=== PATIENT | female | born 1935 | race Caucasian/White ===

== ENCOUNTER 2017-03-01 11:04 | Inpatient (IN) | payer OTHER, BC ==
[2017-03-01 11:23] VITALS: BMI 26.6
--- NOTE | 2017-03-01 11:39 | PDOC ---
History of Present Illness - General History Source: Patient, Family Exam Limitations: No Limitations - History of Present Illness Initial Comments: 03/01/17 12:24 The patient is a 81 year old female with a significant past medical history of A -Fib, diabetes, renal failure on dialysis (T,R,Sat), hypertension, hypercholesterolemia, and peripheral neuropathy, sent by doctor to the Emergency Department with right foot wound and possible cellulitis. The patient states that she was at dialysis today when her doctor suggested she come to the ED for possible cellulitis workup. The patient states that her daughter noticed a callous on her right heel on Sunday, but denies any pain with the heel wound. She denies pain to the feet or legs bilaterally, but admits to peripheral neuropathy bilaterally. Patient has no complaints. The patient denies fever, chills, and cough. Patient denies chest pain, palpitations, and shortness of breath. Patient denies nausea, vomiting, and diarrhea. Patient denies dizziness, headache, and visual changes. Patient denies dysuria, hematuria, and urinary frequency. Allergies: aspirin, penicillins, verapamil, erythromycin base Surgical Hx: cardiac stent <Lety Pabon - Last Filed: 03/01/17 13:26> <Benedicto Fuchs - Last Filed: 03/01/17 13:52> - General Chief Complaint: Wound Stated Complaint: RT FOOT PAIN (PCP SENT) Past History <Lety Pabon - Last Filed: 03/01/17 13:26> - Past Medical History Cardiac Disorders: Yes (-2000) Diabetes: Yes Dialysis: Yes () HTN: Yes Hypercholesterolemia: Yes Thyroid Disease: Yes - Psycho/Social/Smoking Cessation Hx Suicidal Ideation: No Smoking Status: No Smoking History: Former smoker Have you smoked in the past 12 months: No Number of Cigarettes Smoked Daily: 0 Information on smoking cessation initiated: No <Benedicto Fuchs - Last Filed: 03/01/17 13:52> - Past Medical History Allergies/Adverse Reactions: Allergies Allergy/AdvReac Type Severity Reaction Status Date / Time aspirin Allergy Verified 03/01/17 11:18 erythromycin base Allergy Verified 03/01/17 11:19 Penicillins Allergy Verified 03/01/17 11:18 verapamil [Verapamil] Allergy Verified 03/01/17 11:18 Home Medications: Ambulatory Orders Ascorbic Acid [Vitamin C] 1 tab PO DAILY 01/24/13 Cholecalciferol (Vitamin D3) [Vitamin D] 1,000 unit PO DAILY 01/24/13 Furosemide [Lasix -] 80 mg PO DAILY 01/24/13 Insulin Aspart Prot/Insuln Asp [Novolog Mix 70-30 Vial] 8 unit SQ AM 01/24/13 Insulin Aspart Prot/Insuln Asp [Novolog Mix 70-30 Vial] 10 unit SQ HS 01/24/13 Labetalol HCl [Normodyne -] 300 mg PO BID 01/24/13 Metolazone 5 mg PO DAILY 01/24/13 [place]-3 Acid Ethyl Esters [Lovaza -] 1,400 mg PO BID 01/24/13 Sevelamer Carbonate [Renvela -] 800 mg PO TID 01/24/13 Vitamin A 1 tab PO DAILY 01/24/13 Vitamin E 1 tab PO DAILY 01/24/13 Folic Acid - 1 mg PO DAILY #0 tablet 01/27/13 Magnesium Oxide [Mag-Ox -] 400 mg PO DAILY #0 tablet 01/27/13 Review of Systems - Review of Systems Able to Perform ROS?: Yes Comments:: 03/01/17 12:25 GENERAL/CONSTITUTIONAL: No fever or chills. No weakness. HEAD, EYES, EARS, NOSE AND THROAT: No change in vision. No ear pain or discharge. No sore throat. CARDIOVASCULAR: No chest pain or shortness of breath. RESPIRATORY: No cough, wheezing, or hemoptysis. GASTROINTESTINAL: No nausea, vomiting, diarrhea or constipation. GENITOURINARY: No dysuria, frequency, or change in urination. MUSCULOSKELETAL: No joint or muscle swelling or pain. No neck or back pain. SKIN: No rash EXTREMITIES: + right heel callous NEUROLOGIC: No headache, vertigo, loss of consciousness, or change in strength/ sensation. ENDOCRINE: No increased thirst. No abnormal weight change. HEMATOLOGIC/LYMPHATIC: No anemia, easy bleeding, or history of blood clots. ALLERGIC/IMMUNOLOGIC: No hives or skin allergy. <Lety Pabon - Last Filed: 03/01/17 13:26> *Physical Exam - Vital Signs Last Vital Signs Temp Pulse Resp BP Pulse Ox 97.9 F 64 19 164/70 96 03/01/17 11:19 03/01/17 11:19 03/01/17 11:19 03/01/17 11:19 03/01/17 11:19 - Physical Exam Comments: 03/01/17 12:25 GENERAL: Alert, awake and oriented x3, in no acute distress, obese HEAD: No signs of trauma EYES: PERRLA, EOMI, sclera anicteric, conjunctiva clear ENT: Auricles normal inspection, hearing grossly normal, nares patent, oropharynx clear without exudates. Moist mucosa NECK: Normal ROM, supple, no lymphadenopathy, JVD, or masses LUNGS: Breath sounds equal, clear to auscultation bilaterally. No wheezes, and no crackles HEART: Systolic ejection murmur, regular rate and rhythm, normal S1 and S2, no murmurs, rubs or gallops ABDOMEN: Soft, nontender, hyperactive bowel sounds. No guarding, no rebound. No masses EXTREMITIES: Peripheral pulses 1+ bilaterally to lower extremities. Pitting edema 3+ bilaterally to lower extremities to just below knee. Brown to green closed callous on posterior aspect of right ankle, 3cm in diameter oval. Flucatuant underneath, with necrotic core 1cm in diameter. Right lower extremity is warm to touch and erythematous from ankle to thigh, with ecchymosis and bruising. Normal range of motion. No clubbing or cyanosis. No cords NEUROLOGICAL: Cranial nerves II through XII grossly intact. Normal speech, normal gait SKIN: Warm, Dry, normal turgor, no rashes or lesions noted. Lower extremities noted above. <Lety Pabon - Last Filed: 03/01/17 13:26> - Vital Signs Last Vital Signs Temp Pulse Resp BP Pulse Ox 97.9 F 64 19 164/70 96 03/01/17 11:19 03/01/17 11:19 03/01/17 11:19 03/01/17 11:19 03/01/17 11:19 <Benedicto Fuchs - Last Filed: 03/01/17 13:52> Heart Score/ECG Review #1 ECG reviewed & interpreted by me at: 13:25 (EKG reviewed by Dr. Fuchs IMPRESSION: Normal rhythm with 1st degree AV block. Vent rate 63bpm.) <Lety Pabon - Last Filed: 03/01/17 13:26> ED Treatment Course - LABORATORY CBC & Chemistry Diagram: 03/01/17 12:30 03/01/17 12:30 <Lety Pabon - Last Filed: 03/01/17 13:26> - LABORATORY CBC & Chemistry Diagram: 03/01/17 12:30 03/01/17 12:30 <Benedicto Fuchs - Last Filed: 03/01/17 13:52> Medical Decision Making - Medical Decision Making 03/01/17 12:25 Note from Celeste Wisdom: Sent to ED for evaluation of foot ulcer, cellulitis, DVT r/o vascular insuf Patient needs vascular eval 03/01/17 12:36 Dr. Hugo Sinclair was called at his office at 12:36. Awaiting call back. 03/01/17 13:26 Dr. Hugo Sinclair was paged overhead and came down to the ER to see the patient. Dr. Sinclair examined the patient and spoke to Dr. Fuchs about the patient's care. <Lety Pabon - Last Filed: 03/01/17 13:26> *DC/Admit/Observation/Transfer - Attestations Scribe Attestion: 03/01/17 12:26 Documentation prepared by Lety Pabon, acting as medical billing coordinator for Benedicto Fuchs DO. <Lety Pabon - Last Filed: 03/01/17 13:26> - Discharge Dispostion Admit: Yes - Attestations Physician Attestion: 03/01/17 11:38 I, Dr. Benedicto Fuchs, attest that this document has been prepared under my direction and personally reviewed by me in its entirety. I further attest, that it accurately reflects all work, treatment, procedures and medical decision -making performed by me. <Benedicto Fuchs - Last Filed: 03/01/17 13:52> Diagnosis at time of Disposition: Cellulitis and abscess of right lower extremity - Discharge Dispostion Condition at time of disposition: Improved
[2017-03-01 13:18] LABS: BASOPHIL 1.1 % (0-2.0); EOSINOPHIL 2.2 % (0-4.5); MCH 33.7 pg (25.7-33.7); MEAN CELL VOLUME 101.8 fl (80-96); MEAN PLT VOLUME 8.3 fl (7.5-11.1); NEUTROPHILS 72.5 % (42.8-82.8); PLATELET COUNT 129 K/MM3 (134-434); RDW 16.8 % (11.6-15.6); VENOUS BLOOD GAS HCO3 25.3 meq/L (19-25); VENOUS PH 7.36 (7.32-7.42); WHITE BLOOD COUNT 3.7 K/mm3 (4.0-10.0)
--- NOTE | 2017-03-01 13:26 | CONSULT ---
Consult - Smoking History Smoking history: Former smoker Have you smoked in the past 12 months: No Aproximately how many cigarettes per day: 0 Home Medications - Allergies Allergies/Adverse Reactions: Allergies Allergy/AdvReac Type Severity Reaction Status Date / Time aspirin Allergy Verified 03/01/17 11:18 erythromycin base Allergy Verified 03/01/17 11:19 Penicillins Allergy Verified 03/01/17 11:18 verapamil [Verapamil] Allergy Verified 03/01/17 11:18 - Home Medications Home Medications: Ambulatory Orders Ascorbic Acid [Vitamin C] 1 tab PO DAILY 01/24/13 Cholecalciferol (Vitamin D3) [Vitamin D] 1,000 unit PO DAILY 01/24/13 Furosemide [Lasix -] 80 mg PO DAILY 01/24/13 Insulin Aspart Prot/Insuln Asp [Novolog Mix 70-30 Vial] 8 unit SQ AM 01/24/13 Insulin Aspart Prot/Insuln Asp [Novolog Mix 70-30 Vial] 10 unit SQ HS 01/24/13 Labetalol HCl [Normodyne -] 300 mg PO BID 01/24/13 Metolazone 5 mg PO DAILY 01/24/13 [place]-3 Acid Ethyl Esters [Lovaza -] 1,400 mg PO BID 01/24/13 Sevelamer Carbonate [Renvela -] 800 mg PO TID 01/24/13 Vitamin A 1 tab PO DAILY 01/24/13 Vitamin E 1 tab PO DAILY 01/24/13 Folic Acid - 1 mg PO DAILY #0 tablet 01/27/13 Magnesium Oxide [Mag-Ox -] 400 mg PO DAILY #0 tablet 01/27/13 Physical Exam Vital Signs: Vital Signs Temperature 97.9 F 03/01/17 11:19 Pulse Rate 64 03/01/17 11:19 Respiratory Rate 19 03/01/17 11:19 Blood Pressure 164/70 03/01/17 11:19 O2 Sat by Pulse Oximetry (%) 96 03/01/17 11:19 Assessment/Plan Vascular Surgery The patient is a 81 year old female with a significant past medical history of A -Fib, diabetes, renal failure on dialysis (T,R,Sat), hypertension, hypercholesterolemia, and peripheral neuropathy, sent by doctor to the Emergency Department with right foot wound and possible cellulitis. The patient states that she was at dialysis today when her doctor suggested she come to the ED for possible cellulitis workup. The patient states that her daughter noticed a callous on her right heel on Sunday, but denies any pain with the heel wound. She denies pain to the feet or legs bilaterally, but admits to peripheral neuropathy bilaterally. Patient has no complaints. The patient denies fever, chills, and cough. Patient denies chest pain, palpitations, and shortness of breath. Patient denies nausea, vomiting, and diarrhea. Patient denies dizziness, headache, and visual changes. Patient denies dysuria, hematuria, and urinary frequency. Allergies: aspirin, penicillins, verapamil, erythromycin base Surgical Hx: cardiac stent <Lety Pabon - Last Filed: 03/01/17 12:39> - General Chief Complaint: Wound Stated Complaint: RT FOOT PAIN (PCP SENT) Past History - Past Medical History Cardiac Disorders: Yes (-2000) Diabetes: Yes Dialysis: Yes () HTN: Yes Hypercholesterolemia: Yes Thyroid Disease: Yes - Psycho/Social/Smoking Cessation Hx Suicidal Ideation: No Smoking Status: No Smoking History: Former smoker Have you smoked in the past 12 months: No Number of Cigarettes Smoked Daily: 0 Information on smoking cessation initiated: N PE head - NC/AT Lung - CTA Heart - RRR abd - soft,nt,nd ext - Bilateral lower ext erythema. Right heel eschar / ulcer. A/P Bilateral lower ext cellulitis. Will need IV antibiotics. Bilateral lower ext swelling -- can do compression with krysta bandages. Family requesting podiatry for foot care. No need to open right heel eschar -- on palpation there is no discharge. No signs of abscess. Heel pads to area so that the area does not breakdown. bacitracin to area daily. Hugo Sinclair DO Hugo Sinclair DO
[2017-03-01] MEDS ORDERED: LEVOFLOXACIN 750 MG IVPB 150 ML IVPB ONE ×2 (13:27→14:06)
[2017-03-01 13:30] LABS: INR 1.1 (0.82-1.09); PROTHROMBIN TIME (PATIENT) 12.1 SEC (9.98-11.88)
[2017-03-01 13:33] LABS: ACTIVATED PTT 32.5 SECONDS (26.9-34.4)
[2017-03-01 13:41] LABS: ALBUMIN 3.3 g/dl (3.4-5.0); ANION GAP 11 (8-16); BILIRUBIN,TOTAL 0.8 mg/dL (0.2-1.0); CO2 25 mmol/L (21-32); CREATININE 3.5 mg/dL (0.55-1.02); GLUCOSE,RANDOM 91 mg/dL (74-106); SGPT/ALT 14 U/L (12-78); TOT PROT 7.6 g/dl (6.4-8.2)
[2017-03-01 13:42] LABS: PH,URINE 6.5 (5.0-8.0); URINE APPEARANCE CLEAR; URINE BILIRUBIN NEGATIVE (NEGATIVE); URINE COLOR LT. YELLOW; URINE GLUCOSE (UA) NEGATIVE (NEGATIVE); URINE KETONE NEGATIVE (NEGATIVE); URINE NITRITE NEGATIVE (NEGATIVE); URINE UROBILINOGEN 0.2 E.U/dl E.U./dl (0.2-1.0)
[2017-03-01 13:43] LABS: ALK PHOS 232 U/L (45-117); SGOT/AST 43 U/L (15-37); TROPONIN I 0.03 ng/ml (0.00-0.05)
[2017-03-01 13:56] LABS: URINE BLOOD 3+ (NEGATIVE); URINE LEUK ESTERASE 3+ (NEGATIVE); URINE PROTEIN 3+ (NEGATIVE)
[2017-03-01 14:30] LABS: URINE BACTERIA FEW /hpf (NONE SEEN); URINE RBC 9 /hpf (0-3); URINE WBC 2118 /hpf (3-5)
--- NOTE | 2017-03-01 15:49 | EKG ---
Test Reason : Blood Pressure : / mmHG Vent. Rate : 063 BPM Atrial Rate : 063 BPM P-R Int : 220 ms QRS Dur : 100 ms QT Int : 430 ms P-R-T Axes : 050 066 172 degrees QTc Int : 440 ms SINUS RHYTHM WITH 1ST DEGREE A-V BLOCK WITH PREMATURE ATRIAL COMPLEXES ABNORMAL ECG WHEN COMPARED WITH ECG OF 26-JAN-2013 10:45, PREMATURE ATRIAL COMPLEXES ARE NOW PRESENT T WAVE INVERSION NOW EVIDENT IN INFERIOR LEADS T WAVE INVERSION NOW EVIDENT IN ANTEROLATERAL LEADS QT HAS SHORTENED Confirmed by JAMISON ARNDT, MARSHALL ([id number]) on 03/01/2017 3:48:49 PM Referred By: Confirmed By:MARHSALL SWIFT MD
--- NOTE | 2017-03-01 16:33 | PN ---
Progress Note (short form) - Note Progress Note: ID Bilateral LE cellulitis ESRD PCN allergy Await c/s [facility] vanco/ levaquin
[2017-03-01] MEDS ORDERED: VANCOMYCIN 1 GRAM (PRE-DOCKED) 250 ML IVPB ONE (17:00)
[2017-03-01] MEDS: INSULIN SLIDING SCALE (NOVOLOG) 1 VIAL SQ SCH (17:16)
[2017-03-01] MEDS: SEVELAMER CARBONATE 800 MG TAB (FP) PO SCH (18:23)
--- NOTE | 2017-03-01 20:02 | CONS ---
DATE OF CONSULTATION: DATE OF DICTATION: 03/01/2017 INFECTIOUS DISEASE CONSULTATION HISTORY OF PRESENT ILLNESS: The patient is a 81-year-old female, history of end-stage renal disease on hemodialysis, evaluated for bilateral lower extremity cellulitis. The patient had developed a callus on the right heel which her daughter had noticed. She subsequently developed increasing erythema, warmth, and swelling of the lower extremities bilaterally. She had her usual dialysis session earlier today, was noted to have bilateral lower extremity cellulitis and was referred to the emergency room for admission. She denies any traumatic injury to her lower extremities. No insect or animal bites or scratches. She has no complaints of pain. She denies any fever or chills. Patient denies prior history of serious soft tissue infection requiring hospitalization. No history of MRSA. PAST MEDICAL HISTORY: Positive for end-stage renal disease on hemodialysis. She has been on dialysis since 2010. History of atrial fibrillation, diabetes mellitus, hypertension, hyperlipidemia, peripheral neuropathy. PAST SURGICAL HISTORY: Status post coronary artery stent. She is also status post fracture of the right ankle in 2007, she has hardware present. ALLERGIES: ASPIRIN, PENICILLIN, VERAPAMIL, ERYTHROMYCIN. Patient reports rash with ERYTHROMYCIN and PENICILLIN. MEDICATION: Include vitamin C, Lasix, insulin, Normodyne, folic acid. SOCIAL HISTORY: Lives at home. She is a former smoker. SYSTEMS REVIEW: Neurologic: No loss of consciousness, seizure activity, or focal weakness. Cardiac: Negative chest pain or palpitations. Respiratory: Negative cough or sputum production. Gastrointestinal: Negative vomiting or diarrhea. Genitourinary: End-stage renal disease on dialysis. She does make urine. She denies any dysuria or hematuria. LABORATORY DATA: White count 3.7, 72 neutrophils, 12 lymphocytes, 12 monocytes, hematocrit 37.6, platelet count 129. BUN 19, creatinine 3.5. Urinalysis 2118 white cells. Chest x-ray negative. X-rays of the right foot negative. Doppler exam negative for DVT. Blood and urine cultures were pending. PHYSICAL EXAMINATION: General: She is awake and alert. She is not acutely toxic appearing. Vital signs: Temperature 97.9, blood pressure 164/70, pulse 64 regular, respirations 19 per minute. HEENT: Sclerae anicteric. Cardiovascular: Heart sounds S1, S2. Respiratory: Lungs clear. Abdomen: Obese. Soft. Nontender. There is an AV fistula present in the left upper extremity. Extremities: Examination of the lower extremities: 2+ lower extremity edema bilaterally. There is patchy erythema involving both lower extremities from the feet to the mid tibial area. There are excoriations present. There is also an ulceration on the pretibial aspect of the left lower extremity. Excoriations are noted. There is no crepitus or fluctuance. No lymphangitic streaking. Right heel with dry eschar. No fluctuance or crepitance or expressible pus. IMPRESSION: 1. Bilateral lower extremity cellulitis. 2. Possible sepsis secondary to skin infection. 3. End-stage renal disease on hemodialysis. 4. PENICILLIN allergy. Await blood culture results. Empiric antibiotic coverage in this PENICILLIN allergic patient with vancomycin and Levaquin adjusted for renal failure. Will give 1 dose of vancomycin and check level in the morning. Continue Levaquin at renal-adjusted doses. Will follow. Thank you for the kind referral. XAVIER MEDINA M.D. [id number]
[2017-03-01] MEDS: OMEGA-3 ACID ETHYL ESTERS (FATTY-ACIDS) 1 GM CAPSULE (FP) PO SCH (21:13)
[2017-03-01] MEDS: LABETALOL HCL 100 MG TABLET (FP) PO SCH (21:13)
[2017-03-01] MEDS: INSULIN (NOVOLOG MIX 70/30) 100 UNITS/ML MDV SQ SCH (21:21)
[2017-03-02] MEDS: LEVOTHYROXINE NA 175 MCG TABLET PO SCH (06:24)
[2017-03-02] MEDS: INSULIN (NOVOLOG MIX 70/30) 100 UNITS/ML MDV SQ SCH ×3 (06:24→22:10)
[2017-03-02] MEDS: INSULIN SLIDING SCALE (NOVOLOG) 1 VIAL SQ SCH ×3 (06:24→17:23)
[2017-03-02 07:08] LABS: BASOPHIL 0.8 % (0-2.0); MCH 33.6 pg (25.7-33.7); MCHC 32.9 g/dl (32.0-36.0); MEAN CELL VOLUME 102.2 fl (80-96); MEAN PLT VOLUME 8.9 fl (7.5-11.1); NEUTROPHILS 63.5 % (42.8-82.8); PLATELET COUNT 105 K/MM3 (134-434); WHITE BLOOD COUNT 3.8 K/mm3 (4.0-10.0)
[2017-03-02 07:31] LABS: ALBUMIN 2.9 g/dl (3.4-5.0); ALK PHOS 200 U/L (45-117); ANION GAP 8 (8-16); BILIRUBIN,TOTAL 0.7 mg/dL (0.2-1.0); CALCIUM 7.9 mg/dL (8.5-10.1); CO2 28 mmol/L (21-32); CREATININE 4.8 mg/dL (0.55-1.02); GLUCOSE,RANDOM 82 mg/dL (74-106); SGOT/AST 20 U/L (15-37); SGPT/ALT 11 U/L (12-78); TOT PROT 6.6 g/dl (6.4-8.2)
[2017-03-02] MEDS: SEVELAMER CARBONATE 800 MG TAB (FP) PO SCH ×3 (08:00→17:23)
[2017-03-02] MEDS ORDERED: VANCOMYCIN 1 GRAM (PRE-DOCKED) 250 ML IVPB ONE ×2 (08:45→11:45)
[2017-03-02] MEDS ORDERED: PT OWN MED DRAWER 7, Y5N ONE (09:28)
[2017-03-02] MEDS: MAGNESIUM OXIDE 400 MG TABLET (FP) PO SCH (09:31)
[2017-03-02] MEDS: OMEGA-3 ACID ETHYL ESTERS (FATTY-ACIDS) 1 GM CAPSULE (FP) PO SCH ×2 (09:31→21:06)
[2017-03-02] MEDS: FUROSEMIDE 40 MG TABLET (FP) PO SCH (09:31)
[2017-03-02] MEDS: LABETALOL HCL 100 MG TABLET (FP) PO SCH ×2 (09:31→21:07)
--- NOTE | 2017-03-02 10:51 | HP ---
Admitting History and Physical - Primary Care Physician PCP: Brittni Bolaños - Admission History of Present Illness: Dictated. - Smoking History Smoking history: Former smoker Have you smoked in the past 12 months: No Aproximately how many cigarettes per day: 0 - Alcohol/Substance Use Hx Alcohol Use: No Home Medications - Allergies Allergies/Adverse Reactions: Allergies Allergy/AdvReac Type Severity Reaction Status Date / Time aspirin Allergy Verified 03/01/17 11:18 erythromycin base Allergy Verified 03/01/17 11:19 Penicillins Allergy Verified 03/01/17 11:18 verapamil [Verapamil] Allergy Verified 03/01/17 11:18 - Home Medications Home Medications: Ambulatory Orders Ascorbic Acid [Vitamin C] 1 tab PO DAILY 01/24/13 Cholecalciferol (Vitamin D3) [Vitamin D] 1,000 unit PO DAILY 01/24/13 Furosemide [Lasix -] 80 mg PO DAILY 01/24/13 Insulin Aspart Prot/Insuln Asp [Novolog Mix 70-30 Vial] 8 unit SQ AM 01/24/13 Insulin Aspart Prot/Insuln Asp [Novolog Mix 70-30 Vial] 10 unit SQ HS 01/24/13 Labetalol HCl [Normodyne -] 300 mg PO BID 01/24/13 Metolazone 5 mg PO DAILY 01/24/13 [place]-3 Acid Ethyl Esters [Lovaza -] 1,400 mg PO BID 01/24/13 Sevelamer Carbonate [Renvela -] 800 mg PO TID 01/24/13 Vitamin A 1 tab PO DAILY 01/24/13 Vitamin E 1 tab PO DAILY 01/24/13 Folic Acid - 1 mg PO DAILY #0 tablet 01/27/13 Magnesium Oxide [Mag-Ox -] 400 mg PO DAILY #0 tablet 01/27/13 Physical Examination Vital Signs: Vital Signs Temperature 98.3 F 03/02/17 06:00 Pulse Rate 69 03/02/17 10:28 Respiratory Rate 16 03/02/17 06:00 Blood Pressure 146/69 03/02/17 06:00 O2 Sat by Pulse Oximetry (%) 97 03/02/17 10:28 Labs: CBC, BMP 03/02/17 05:40 03/02/17 05:40 Problem List - Problems (1) Cellulitis and abscess of right lower extremity Code(s): L03.115 - CELLULITIS OF RIGHT LOWER LIMB L02.415 - CUTANEOUS ABSCESS OF RIGHT LOWER LIMB (2) Cellulitis Code(s): L03.90 - CELLULITIS, UNSPECIFIED (3) ESRD (end stage renal disease) on dialysis Code(s): N18.6 - END STAGE RENAL DISEASE Z99.2 - DEPENDENCE ON RENAL DIALYSIS (4) CAD (coronary artery disease) Code(s): I25.10 - ATHSCL HEART DISEASE OF [place] CORONARY ARTERY W/O ANG PCTRS (5) Diabetes 1.5, managed as type 1 Code(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
--- NOTE | 2017-03-02 11:31 | HP ---
DATE OF ADMISSION: DATE OF DICTATION: 03/02/2017 HISTORY OF PRESENT ILLNESS: This patient is a 81-year-old with an extensive past medical history of end-stage renal disease, on dialysis Sunday, , Sunday, coronary artery disease, status post stenting at [facility] in 2014, history of paroxysmal atrial fibrillation, insulin-dependent diabetes mellitus, hypertension, hyperlipidemia, peripheral neuropathy, as well as a history of overweight, is admitted to the hospital when she was sent from dialysis secondary to having redness on the legs as well as right heel wound. Patient diagnosed with cellulitis and right heel eschar. Started on antibiotics and admitted to the floor. Patient seen and examined by me today. Chart reviewed. HOME MEDICATIONS: Reviewed as listed on the emergency room sheet. ALLERGIES: also noted. It should be noted that the patient is taking baby aspirin at home and she denies any allergies to aspirin. PERSONAL HISTORY: Patient does not smoke or drink. FAMILY HISTORY: Nothing contributory. REVIEW OF SYSTEMS: Patient denies any chest pain, shortness of breath, abdominal pain, headache, dizziness. PHYSICAL EXAMINATION: General: Patient is alert and awake, comfortable, lying on the bed. Vital Signs: Stable as documented. She is afebrile. Neck: Supple. HEENT: Pupils are reactive and equal to light and accommodation. Lungs: Clear to auscultation. Cardiac: Heart sounds are regular. Abdomen: Soft, nontender. Extremities: Exam significant for bilateral lower extremity edema as well as right heel eschar. Neurological: She is alert and awake. DIAGNOSTIC DATA: Blood work showed white count 3.8, hemoglobin of 11.4, hematocrit 34.7 with platelets of 105 14. Electrolytes showed sodium 133. Rest of electrolytes are essentially okay except BUN 28, creatinine 4.8, and the patient is a dialysis patient. Ultrasound of the lower extremities was negative for DVT. Foot x-ray also noted as well as chest x-ray. EKG showed normal sinus rhythm. ASSESSMENT AND PLAN: Patient is admitted to the floor with the diagnosis of cellulitis. Patient's past medical history as documented. Continue antibiotics. Continue other medications. Discussed with the patient. Patient takes baby aspirin at home. On further questioning, patient gives a history of GI bleed in 2014 after she had stent placed and was on Coumadin. Patient was taken off Coumadin after that and does not want to be back on. Discussed heparin subcutaneous for DVT prophylaxis and patient agrees with that. Will monitor CBC for any signs of GI bleeding. I would like to make addendum that patient also has a history of hypothyroidism and she is on Synthroid. Further recommendations will be guided by the clinical course. Thank you. HOANG WILLAMS M.D. [id number]
--- NOTE | 2017-03-02 11:38 | PN ---
Progress Note, Physician History of Present Illness: Awake, alert No c/o LE pain No fever/ chills No adverse rxn to antibiotics - Current Medication List Current Medications: Active Medications Aspirin (Asa -) 81 mg PO DAILY [facility] Furosemide (Lasix -) 80 mg PO DAILY [facility] Last Admin: 03/02/17 09:31 Dose: 80 mg Heparin Sodium (Porcine) (Heparin -) 5,000 unit SQ BID [facility] Levofloxacin (Levaquin 250 Mg Premixed Ivpb -) 50 mls @ 50 mls/hr IVPB Q2D@ 1000 [facility] Insulin Aspart (Novolog Mix 70/30 Vial) 10 units SQ HS [facility] Last Admin: 03/01/17 21:21 Dose: Not Given Insulin Aspart (Novolog Mix 70/30 Vial) 8 units SQ AM [facility] Last Admin: 03/02/17 06:24 Dose: Not Given Insulin Aspart (Novolog Vial Sliding Scale -) 1 vial SQ TIDAC [facility] PRN Reason: Protocol Last Admin: 03/02/17 11:33 Dose: Not Given Labetalol HCl (Normodyne -) 300 mg PO BID [facility] Last Admin: 03/02/17 09:31 Dose: 300 mg Levothyroxine Sodium (Synthroid -) 175 mcg PO DAILY@0700 [facility] Last Admin: 03/02/17 06:24 Dose: 175 mcg Magnesium Oxide (Mag-Ox -) 400 mg PO DAILY [facility] Last Admin: 03/02/17 09:31 Dose: 400 mg Tpsjj-9-Mqcg Ethyl Esters (Lovaza -) 2 gm PO BID [facility] Last Admin: 03/02/17 09:31 Dose: 2 gm Sevelamer Carbonate (Renvela -) 800 mg PO TIDCM [facility] Last Admin: 03/02/17 08:00 Dose: 800 mg - Objective Vital Signs: Vital Signs Temperature 98.7 F 03/02/17 10:00 Pulse Rate 69 03/02/17 10:28 Respiratory Rate 20 03/02/17 10:00 Blood Pressure 150/70 03/02/17 10:00 O2 Sat by Pulse Oximetry (%) 97 03/02/17 10:28 Constitutional: Yes: No Distress, Obese Cardiovascular: Yes: Regular Rate and Rhythm, S1, S2 Respiratory: Yes: CTA Bilaterally Gastrointestinal: Yes: Normal Bowel Sounds, Soft, Abdomen, Obese. No: Tenderness Extremities: Yes: Other (decreased erythema/ warmth LE bilaterally) Labs: CBC, BMP 03/02/17 05:40 03/02/17 05:40 INR, PTT INR 1.10 (0.82-1.09) 03/01/17 12:30 Assessment/Plan Bilateral LE cellulitis- improved ESRD PCN allergy Redose vancomycin, check level at HD am Continue levaquin
--- NOTE | 2017-03-02 13:23 | CON.NEP ---
Consult Consult Specialty:: Renal Referred by:: Dr Bolaños Reason for Consultation:: ESRD on HD - History of Present Illness Chief Complaint: LE reddness and pain History of Present Illness: 81 year old woman with PMhx of ESRD on HD (x 7 years), DM type 2, Hypertension, CAD s/p PCI and stenting presents with LE eryhtemia and pain and found to have b /l LE cellulitis. Pt reports redness in the legs for several days. Denies any fever or chills. S/p Dialysis yesterday w/o complication. Pt denies any SOB, chest pain, Fever, Chills, N/V/D at this time. - History Source History Provided By: Patient Limitations to Obtaining History: No Limitations - Past Medical History Cardio/Vascular: Yes: CAD, HTN Renal/: Yes: Renal Failure, Hemodialysis Endocrine: Yes: Diabetes Mellitus - Alcohol/Substance Use Hx Alcohol Use: No - Smoking History Smoking history: Former smoker Have you smoked in the past 12 months: No Aproximately how many cigarettes per day: 0 Home Medications - Allergies Allergies/Adverse Reactions: Allergies Allergy/AdvReac Type Severity Reaction Status Date / Time aspirin Allergy Verified 03/01/17 11:18 erythromycin base Allergy Verified 03/01/17 11:19 Penicillins Allergy Verified 03/01/17 11:18 verapamil [Verapamil] Allergy Verified 03/01/17 11:18 - Home Medications Home Medications: Ambulatory Orders Ascorbic Acid [Vitamin C] 1 tab PO DAILY 01/24/13 Cholecalciferol (Vitamin D3) [Vitamin D] 1,000 unit PO DAILY 01/24/13 Furosemide [Lasix -] 80 mg PO DAILY 01/24/13 Insulin Aspart Prot/Insuln Asp [Novolog Mix 70-30 Vial] 8 unit SQ AM 01/24/13 Insulin Aspart Prot/Insuln Asp [Novolog Mix 70-30 Vial] 10 unit SQ HS 01/24/13 Labetalol HCl [Normodyne -] 300 mg PO BID 01/24/13 Metolazone 5 mg PO DAILY 01/24/13 Halfway-3 Acid Ethyl Esters [Lovaza -] 1,400 mg PO BID 01/24/13 Sevelamer Carbonate [Renvela -] 800 mg PO TID 01/24/13 Vitamin A 1 tab PO DAILY 01/24/13 Vitamin E 1 tab PO DAILY 01/24/13 Folic Acid - 1 mg PO DAILY #0 tablet 01/27/13 Magnesium Oxide [Mag-Ox -] 400 mg PO DAILY #0 tablet 01/27/13 Family Disease History - Family Disease History Family History: Unremarkable Review of Systems - Review of Systems Constitutional: reports: No Symptoms Eyes: reports: No Symptoms HENT: reports: No Symptoms Neck: reports: No Symptoms Cardiovascular: reports: Edema. denies: Chest Pain, Palpitations, Shortness of Breath Respiratory: reports: No Symptoms Gastrointestinal: reports: No Symptoms Genitourinary: reports: No Symptoms Musculoskeletal: reports: Joint Pain Integumentary: reports: Erythema, Rash Neurological: reports: No Symptoms Endocrine: reports: No Symptoms Hematology/Lymphatic: reports: No Symptoms Psychiatric: reports: No Symptoms Nephrology Consult - Height Height: 5 ft 11 in - Weight Weight: 190 lb 11.198 oz - BMI Body Mass Index (BMI): 26.6 - Lab Results CBC,BMP: CBC, BMP 03/02/17 05:40 03/02/17 05:40 Anion Gap: Anion Gap Anion Gap 8 (8-16) 03/02/17 05:40 - Imaging Chest X-ray: Report Reviewed Ultrasound: Report Reviewed - Physical Examination Vital Signs: Vital Signs Temperature 98.7 F 03/02/17 10:00 Pulse Rate 69 03/02/17 10:28 Respiratory Rate 20 03/02/17 10:00 Blood Pressure 150/70 03/02/17 10:00 O2 Sat by Pulse Oximetry (%) 97 03/02/17 10:28 Constitutional: Yes: Well Nourished, No Distress HENT: Yes: Atraumatic, Normocephalic Neck: Yes: Supple Cardiovascular: Yes: Regular Rate and Rhythm, S1, S2. No: JVD Respiratory: Yes: Regular, CTA Bilaterally Gastrointestinal: Yes: Normal Bowel Sounds, Soft. No: Tenderness, Tenderness, Rebound Renal/: No: Bladder Distention Access for Hemodialysis: AV Fistula Edema: Yes Edema: LLE: 1+, RLE: 1+ Neurological: Yes: Alert, Oriented Problem List - Problems (1) CAD (coronary artery disease) Code(s): I25.10 - ATHSCL HEART DISEASE OF [place] CORONARY ARTERY W/O ANG PCTRS (2) Cellulitis Code(s): L03.90 - CELLULITIS, UNSPECIFIED (3) ESRD (end stage renal disease) on dialysis Code(s): N18.6 - END STAGE RENAL DISEASE Z99.2 - DEPENDENCE ON RENAL DIALYSIS (4) Hypertension Code(s): I10 - ESSENTIAL (PRIMARY) HYPERTENSION (5) Diabetic acetonemia Code(s): E10.10 - TYPE 1 DIABETES MELLITUS WITH KETOACIDOSIS WITHOUT COMA (6) Thrombocytopenia Code(s): D69.6 - THROMBOCYTOPENIA, UNSPECIFIED Assessment/Plan 81 year old woman with PMhx of ESRD on HD (x 7 years), DM type 2, Hypertension, CAD s/p PCI and stenting presents with LE eryhtemia and pain and found to have b /l LE cellulitis. #LE cellulitis DVT ruled out continue Abx as per ID will check Vanco level and redose with HD as needed #ESRD on HD no acute indication for dialysis today will resume HD tomorrow dose all meds for intermittent HD continue oral diuretics #Thrombocytopenia etiology unclear will not give heparin with HD Trend plt counts no indication for transfusion #Renal osteodystrphy Check Phos levels continue isabellela Thank you Kenny Yeboah DO
[2017-03-02] MEDS: HEPARIN NA (PORCINE) 5,000 UNITS/ML 1ML VIAL SQ SCH ×2 (21:07→22:32)
[2017-03-03] MEDS: INSULIN (NOVOLOG MIX 70/30) 100 UNITS/ML MDV SQ SCH ×2 (06:32→21:12)
[2017-03-03] MEDS: INSULIN SLIDING SCALE (NOVOLOG) 1 VIAL SQ SCH ×3 (06:32→17:21)
[2017-03-03] MEDS: LEVOTHYROXINE NA 175 MCG TABLET PO SCH (06:34)
[2017-03-03] MEDS ORDERED: INSULIN (NOVOLOG) ASPART 100 UNITS/ML 10ML VIAL ONE (06:59)
[2017-03-03] MEDS: SEVELAMER CARBONATE 800 MG TAB (FP) PO SCH ×3 (07:29→18:05)
[2017-03-03 08:51] LABS: MCH 33.3 pg (25.7-33.7); MCHC 32.9 g/dl (32.0-36.0); MEAN CELL VOLUME 101.3 fl (80-96); MEAN PLT VOLUME 8.4 fl (7.5-11.1); PLATELET COUNT 109 K/MM3 (134-434); RDW 16.5 % (11.6-15.6)
[2017-03-03 09:17] LABS: ANION GAP 10 (8-16); BILIRUBIN,TOTAL 0.7 mg/dL (0.2-1.0); CALCIUM 8.5 mg/dL (8.5-10.1); CO2 23 mmol/L (21-32); GLUCOSE,RANDOM 92 mg/dL (74-106); PHOSPHOROUS 3.2 mg/dL (2.5-4.9); SGOT/AST 20 U/L (15-37); SGPT/ALT 11 U/L (12-78); TOT PROT 6.6 g/dl (6.4-8.2)
[2017-03-03 09:18] LABS: ALK PHOS 188 U/L (45-117)
--- NOTE | 2017-03-03 10:00 | PN ---
Progress Note (short form) - Note Progress Note: Renal Follow up for ESRD on HD Pt seen and examined during dialysis BP 160/60, AVF with good flow Goal UF is 2.5L pt without complaints Vital Signs Temperature 97.7 F 03/03/17 06:00 Pulse Rate 61 03/03/17 09:20 Respiratory Rate 18 03/03/17 09:20 Blood Pressure 160/61 03/03/17 09:20 O2 Sat by Pulse Oximetry (%) 98 03/02/17 21:00 Intake & Output 02/28/17 03/01/17 03/02/17 03/03/17 23:59 23:59 23:59 23:59 Intake Total 50 450 100 Balance 50 450 100 Weight 190 lb 11.198 oz 190 lb 11.198 oz 194 lb 1 oz Gen: NAD CVS: RRR Lungs CTA Abd: soft NT/ND Ext: B/L in compression stocking CBC, BMP 03/03/17 07:30 03/03/17 07:30 Laboratory Tests 03/03/17 07:30 Calcium 8.5 Phosphorus 3.2 D Albumin 3.0 L Current Medications Aspirin (Asa -) 81 mg PO DAILY [facility] Furosemide (Lasix -) 80 mg PO DAILY [facility] Last Admin: 03/02/17 09:31 Dose: 80 mg Heparin Sodium (Porcine) (Heparin -) 5,000 unit SQ BID [facility] Last Admin: 03/02/17 22:32 Dose: Not Given Levofloxacin (Levaquin 250 Mg Premixed Ivpb -) 50 mls @ 50 mls/hr IVPB Q2D@ 1000 [facility] Vancomycin HCl 500 mg/ (Dextrose) 250 mls @ 250 mls/hr IVPB ONCE ONE PRN Reason: Protocol Stop: 03/03/17 10:56 Insulin Aspart (Novolog Mix 70/30 Vial) 10 units SQ HS [facility] Last Admin: 03/02/17 22:10 Dose: Not Given Insulin Aspart (Novolog Mix 70/30 Vial) 8 units SQ AM [facility] Last Admin: 03/03/17 06:32 Dose: Not Given Insulin Aspart (Novolog Vial Sliding Scale -) 1 vial SQ TIDAC [facility] PRN Reason: Protocol Last Admin: 03/03/17 06:32 Dose: Not Given Labetalol HCl (Normodyne -) 300 mg PO BID [facility] Last Admin: 03/02/17 21:07 Dose: 300 mg Levothyroxine Sodium (Synthroid -) 175 mcg PO DAILY@0700 [facility] Last Admin: 03/03/17 06:34 Dose: 175 mcg Magnesium Oxide (Mag-Ox -) 400 mg PO DAILY [facility] Last Admin: 03/02/17 09:31 Dose: 400 mg Kteoc-5-Yizz Ethyl Esters (Lovaza -) 2 gm PO BID [facility] Last Admin: 03/02/17 21:06 Dose: 2 gm Sevelamer Carbonate (Renvela -) 800 mg PO TIDCM [facility] Last Admin: 03/03/17 07:29 Dose: Not Given A/P 81 year old woman with PMhx of ESRD on HD (x 7 years), DM type 2, Hypertension, CAD s/p PCI and stenting presents with LE eryhtemia and pain and found to have b /l LE cellulitis. #LE cellulitis DVT ruled out Will Give Vanco 500mg IV with HD today on Levaquin as per ID #ESRD on HD Tolerating dialysis well today continue Hd on TTS schedule UF as tolerated #Thrombocytopenia etiology unclear will not give heparin with HD Trend plt counts no indication for transfusion #Renal osteodystrphy Phos level at goal continue binder with meals Thank you Kenny Yeboah DO Problem List - Problems (1) CAD (coronary artery disease) Code(s): I25.10 - ATHSCL HEART DISEASE OF [place] CORONARY ARTERY W/O ANG PCTRS (2) Cellulitis Code(s): L03.90 - CELLULITIS, UNSPECIFIED (3) ESRD (end stage renal disease) on dialysis Code(s): N18.6 - END STAGE RENAL DISEASE Z99.2 - DEPENDENCE ON RENAL DIALYSIS (4) Hypertension Code(s): I10 - ESSENTIAL (PRIMARY) HYPERTENSION (5) Diabetic acetonemia Code(s): E10.10 - TYPE 1 DIABETES MELLITUS WITH KETOACIDOSIS WITHOUT COMA (6) Thrombocytopenia Code(s): D69.6 - THROMBOCYTOPENIA, UNSPECIFIED
[2017-03-03] MEDS ORDERED: VANCOMYCIN 500 MG in DEXTROSE 5%-WATER - 100 ML IVPB ONE (10:15)
--- NOTE | 2017-03-03 10:36 | PN ---
Progress Note (short form) - Note Progress Note: Pt seen/ examined feels better denies pain dont want heparin s/q Vital Signs Temp 97.7 F 03/03/17 06:00 Pulse 61 03/03/17 09:20 Resp 18 03/03/17 09:20 BP 160/61 03/03/17 09:20 Pulse Ox 98 03/02/17 21:00 Intake & Output 03/02/17 03/02/17 03/03/17 11:59 23:59 11:59 Intake Total 200 250 100 Balance 200 250 100 Weight 190 lb 11.198 oz 194 lb 1 oz Intake: IVPB 250 Oral 200 100 Other: Voiding Method Toilet Toilet Toilet # Unmeasured Voids Void 1 1 Bowel Movement No No Height 5 ft 11 in Body Mass Index (BMI) 26.6 Weight Measurement Method Standing Scale Active Medications Aspirin (Asa -) 81 mg PO DAILY [facility] Furosemide (Lasix -) 80 mg PO DAILY [facility] Last Admin: 03/02/17 09:31 Dose: 80 mg Heparin Sodium (Porcine) (Heparin -) 5,000 unit SQ BID [facility] Last Admin: 03/02/17 22:32 Dose: Not Given Levofloxacin (Levaquin 250 Mg Premixed Ivpb -) 50 mls @ 50 mls/hr IVPB Q2D@ 1000 [facility] Vancomycin HCl 500 mg/ (Dextrose) 100 mls @ 100 mls/hr IVPB ONCE ONE PRN Reason: Protocol Stop: 03/03/17 11:14 Insulin Aspart (Novolog Mix 70/30 Vial) 10 units SQ HS [facility] Last Admin: 03/02/17 22:10 Dose: Not Given Insulin Aspart (Novolog Mix 70/30 Vial) 8 units SQ AM [facility] Last Admin: 03/03/17 06:32 Dose: Not Given Insulin Aspart (Novolog Vial Sliding Scale -) 1 vial SQ TIDAC [facility] PRN Reason: Protocol Last Admin: 03/03/17 06:32 Dose: Not Given Labetalol HCl (Normodyne -) 300 mg PO BID [facility] Last Admin: 03/02/17 21:07 Dose: 300 mg Levothyroxine Sodium (Synthroid -) 175 mcg PO DAILY@0700 [facility] Last Admin: 03/03/17 06:34 Dose: 175 mcg Magnesium Oxide (Mag-Ox -) 400 mg PO DAILY [facility] Last Admin: 03/02/17 09:31 Dose: 400 mg Qgshv-3-Mqny Ethyl Esters (Lovaza -) 2 gm PO BID [facility] Last Admin: 03/02/17 21:06 Dose: 2 gm Sevelamer Carbonate (Renvela -) 800 mg PO TIDCM [facility] Last Admin: 03/03/17 07:29 Dose: Not Given CBC, BMP 03/03/17 07:30 03/03/17 07:30 Microbiology 03/01/17 13:26 Urine Culture - Preliminary Urine - Urine Clean Catch Non Lactose Fermenting Gnb 03/01/17 12:30 Blood Culture - Preliminary Blood - Peripheral Venous NO GROWTH OBTAINED AFTER 24 HOURS, INCUBATION TO CONTINUE FOR 4 DAYS. 03/01/17 12:30 Blood Culture - Preliminary Blood - Peripheral Venous NO GROWTH OBTAINED AFTER 24 HOURS, INCUBATION TO CONTINUE FOR 4 DAYS. o/e lungs- clear cvs- s1, s2 rrr abd - soft ext- decreased erythema a/p better continue abx vanco per level has dialysis today sugar ok d/c heparin s/q- will follow Problem List - Problems (1) Cellulitis and abscess of right lower extremity Code(s): L03.115 - CELLULITIS OF RIGHT LOWER LIMB L02.415 - CUTANEOUS ABSCESS OF RIGHT LOWER LIMB (2) Cellulitis Code(s): L03.90 - CELLULITIS, UNSPECIFIED (3) ESRD (end stage renal disease) on dialysis Code(s): N18.6 - END STAGE RENAL DISEASE Z99.2 - DEPENDENCE ON RENAL DIALYSIS (4) CAD (coronary artery disease) Code(s): I25.10 - ATHSCL HEART DISEASE OF [place] CORONARY ARTERY W/O ANG PCTRS (5) Diabetes 1.5, managed as type 1 Code(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
[2017-03-03] MEDS ORDERED: PT OWN MED DRAWER 7, Y5N ONE ×2 (11:28→20:45)
[2017-03-03] MEDS: ASPIRIN 81 MG CHEWABLE TABLETS PO SCH (11:34)
[2017-03-03] MEDS: LABETALOL HCL 100 MG TABLET (FP) PO SCH ×2 (11:35→21:05)
[2017-03-03] MEDS: FUROSEMIDE 40 MG TABLET (FP) PO SCH (11:36)
[2017-03-03] MEDS: MAGNESIUM OXIDE 400 MG TABLET (FP) PO SCH (11:36)
[2017-03-03] MEDS: HEPARIN NA (PORCINE) 5,000 UNITS/ML 1ML VIAL SQ SCH (11:37)
[2017-03-03] MEDS: LEVOFLOXACIN 250 MG IVPB 50 ML IVPB SCH (11:37)
[2017-03-03] MEDS: OMEGA-3 ACID ETHYL ESTERS (FATTY-ACIDS) 1 GM CAPSULE (FP) PO SCH ×2 (11:38→21:07)
[2017-03-03 12:04] LABS: CREATININE 2.4 mg/dL (0.55-1.02)
--- NOTE | 2017-03-03 15:09 | PN ---
Progress Note, Physician History of Present Illness: Awake, alert Seen on dialysis No c/o leg pain No fever/ chills - Current Medication List Current Medications: Active Medications Aspirin (Asa -) 81 mg PO DAILY [facility] Last Admin: 03/03/17 11:34 Dose: 81 mg Furosemide (Lasix -) 80 mg PO DAILY [facility] Last Admin: 03/03/17 11:36 Dose: 80 mg Levofloxacin (Levaquin 250 Mg Premixed Ivpb -) 50 mls @ 50 mls/hr IVPB Q2D@ 1000 [facility] Last Admin: 03/03/17 11:37 Dose: 50 mls/hr Insulin Aspart (Novolog Mix 70/30 Vial) 10 units SQ HS [facility] Last Admin: 03/02/17 22:10 Dose: Not Given Insulin Aspart (Novolog Mix 70/30 Vial) 8 units SQ AM [facility] Last Admin: 03/03/17 06:32 Dose: Not Given Insulin Aspart (Novolog Vial Sliding Scale -) 1 vial SQ TIDAC [facility] PRN Reason: Protocol Last Admin: 03/03/17 11:59 Dose: Not Given Labetalol HCl (Normodyne -) 300 mg PO BID [facility] Last Admin: 03/03/17 11:35 Dose: 300 mg Levothyroxine Sodium (Synthroid -) 175 mcg PO DAILY@0700 [facility] Last Admin: 03/03/17 06:34 Dose: 175 mcg Magnesium Oxide (Mag-Ox -) 400 mg PO DAILY [facility] Last Admin: 03/03/17 11:36 Dose: 400 mg Nevvk-3-Hwwm Ethyl Esters (Lovaza -) 2 gm PO BID [facility] Last Admin: 03/03/17 11:38 Dose: 2 gm Sevelamer Carbonate (Renvela -) 800 mg PO TIDCM [facility] Last Admin: 03/03/17 11:35 Dose: 800 mg - Objective Vital Signs: Vital Signs Temperature 98.4 F 03/03/17 14:46 Pulse Rate 68 03/03/17 14:46 Respiratory Rate 22 03/03/17 14:46 Blood Pressure 146/57 03/03/17 14:46 O2 Sat by Pulse Oximetry (%) 98 03/02/17 21:00 Constitutional: Yes: No Distress Eyes: Yes: Conjunctiva Clear Cardiovascular: Yes: Regular Rate and Rhythm, S1, S2 Respiratory: Yes: CTA Bilaterally Gastrointestinal: Yes: Normal Bowel Sounds, Soft Extremities: Yes: Other (decreased bilateral LE edema, warmth , and erythema) Labs: CBC, BMP 03/03/17 07:30 03/03/17 11:00 INR, PTT INR 1.10 (0.82-1.09) 03/01/17 12:30 Assessment/Plan Bilateral LE cellulitis- improved ESRD PCN allergy Redose vancomycin, check level am Continue levaquin
[2017-03-04] MEDS: INSULIN SLIDING SCALE (NOVOLOG) 1 VIAL SQ SCH ×3 (06:26→17:32)
[2017-03-04] MEDS: INSULIN (NOVOLOG MIX 70/30) 100 UNITS/ML MDV SQ SCH ×2 (06:26→21:49)
[2017-03-04] MEDS: LEVOTHYROXINE NA 175 MCG TABLET PO SCH (06:29)
[2017-03-04 08:06] LABS: HEP B SURFACE AB Reactive (.)
[2017-03-04] MEDS: SEVELAMER CARBONATE 800 MG TAB (FP) PO SCH ×3 (08:55→17:38)
[2017-03-04] MEDS ORDERED: PT OWN MED DRAWER 7, Y5N ONE (09:05)
[2017-03-04] MEDS: LABETALOL HCL 100 MG TABLET (FP) PO SCH ×2 (09:46→21:45)
[2017-03-04] MEDS: MAGNESIUM OXIDE 400 MG TABLET (FP) PO SCH (09:46)
[2017-03-04] MEDS: FUROSEMIDE 40 MG TABLET (FP) PO SCH (09:46)
[2017-03-04] MEDS: ASPIRIN 81 MG CHEWABLE TABLETS PO SCH ×2 (09:47→11:30)
[2017-03-04] MEDS: OMEGA-3 ACID ETHYL ESTERS (FATTY-ACIDS) 1 GM CAPSULE (FP) PO SCH ×2 (09:47→21:45)
--- NOTE | 2017-03-04 10:45 | PN ---
Progress Note, Physician History of Present Illness: Awake, alert Seated in bed No c/o leg pain No fever/ chills Denies dysuria Vanco level noted - Current Medication List Current Medications: Active Medications Aspirin (Asa -) [address] [facility] Last Admin: 03/03/17 11:34 Dose: 81 mg Furosemide (Lasix -) [address] [facility] Last Admin: 03/04/17 09:46 Dose: 80 mg Levofloxacin (Levaquin 250 Mg Premixed Ivpb -) 50 mls @ 50 mls/hr IVPB Q2D@ 1000 [facility] Last Admin: 03/03/17 11:37 Dose: 50 mls/hr Insulin Aspart (Novolog Mix 70/30 Vial) [address] [facility] Last Admin: 03/03/17 21:12 Dose: Not Given Insulin Aspart (Novolog Mix 70/30 Vial) [address] [facility] Last Admin: 03/04/17 06:26 Dose: Not Given Insulin Aspart (Novolog Vial Sliding Scale -) [address] [facility] PRN Reason: Protocol Last Admin: 03/04/17 06:26 Dose: Not Given Labetalol HCl (Normodyne -) [address] [facility] Last Admin: 03/04/17 09:46 Dose: 300 mg Levothyroxine Sodium 75 mcg/ (Levothyroxine Sodium 100 mcg) 175 mcg PO DAILY@ 0700 [facility] Magnesium Oxide (Mag-Ox -) [address] [facility] Last Admin: 03/04/17 09:46 Dose: 400 mg Qgqgl-9-Eukj Ethyl Esters (Lovaza -) [address] [facility] Last Admin: 03/04/17 09:47 Dose: 2 gm Sevelamer Carbonate (Renvela -) [address] [facility] Last Admin: 03/04/17 08:55 Dose: 800 mg - Objective Vital Signs: Vital Signs Temperature 98.5 F 03/04/17 09:45 Pulse Rate 64 03/04/17 09:45 Respiratory Rate 18 03/04/17 09:45 Blood Pressure 159/70 03/04/17 09:45 O2 Sat by Pulse Oximetry (%) 98 03/03/17 21:00 Constitutional: Yes: No Distress, Obese Eyes: Yes: Conjunctiva Clear Cardiovascular: Yes: Regular Rate and Rhythm, S1, S2 Respiratory: Yes: CTA Bilaterally Gastrointestinal: Yes: Normal Bowel Sounds, Soft. No: Tenderness Extremities: Yes: Other (decreased bilateral LE edema/ erythema/ warmth + 1cm superficial L pretibial ulcer) Edema: Yes Edema: LLE: 1+, RLE: 1+ Labs: CBC, BMP 03/03/17 07:30 03/03/17 11:00 INR, PTT INR 1.10 (0.82-1.09) 03/01/17 12:30 Assessment/Plan Bilateral LE cellulitis- improved UTI Proteus sp. ESRD PCN allergy Continue levaquin Vancomycin level theraputic
[2017-03-04] MEDS: PANTOPRAZOLE 40 MG TABLET (FP) PO SCH (11:29)
--- NOTE | 2017-03-04 11:44 | PN ---
Progress Note (short form) - Note Progress Note: Pt seen/ examined feels well. no issues wants protonix - says she takes i/d f/u noted/ appreciated Vital Signs Temp 98.5 F 03/04/17 09:45 Pulse 64 03/04/17 09:45 Resp 18 03/04/17 09:45 BP 159/70 03/04/17 09:45 Pulse Ox 98 03/03/17 21:00 Intake & Output 03/03/17 03/03/17 03/04/17 11:59 23:59 11:59 Intake Total 100 1030 315 Balance 100 1030 315 Weight 194 lb 1 oz Intake: IV 0 right hand 0 IVPB 150 Oral 100 880 315 Other: Voiding Method Toilet Toilet Toilet # Unmeasured Voids Void 1 1 1 Bowel Movement No No No Weight Measurement Method Standing Scale Active Medications Aspirin (Asa -) 81 mg PO DAILY [facility] Last Admin: 03/04/17 11:30 Dose: 81 mg Furosemide (Lasix -) 80 mg PO DAILY [facility] Last Admin: 03/04/17 09:46 Dose: 80 mg Levofloxacin (Levaquin 250 Mg Premixed Ivpb -) 50 mls @ 50 mls/hr IVPB Q2D@ 1000 [facility] Last Admin: 03/03/17 11:37 Dose: 50 mls/hr Insulin Aspart (Novolog Mix 70/30 Vial) 10 units SQ HS [facility] Last Admin: 03/03/17 21:12 Dose: Not Given Insulin Aspart (Novolog Mix 70/30 Vial) 8 units SQ AM [facility] Last Admin: 03/04/17 06:26 Dose: Not Given Insulin Aspart (Novolog Vial Sliding Scale -) 1 vial SQ TIDAC [facility] PRN Reason: Protocol Last Admin: 03/04/17 06:26 Dose: Not Given Labetalol HCl (Normodyne -) 300 mg PO BID [facility] Last Admin: 03/04/17 09:46 Dose: 300 mg Levothyroxine Sodium 75 mcg/ (Levothyroxine Sodium 100 mcg) 175 mcg PO DAILY@ 0700 [facility] Magnesium Oxide (Mag-Ox -) 400 mg PO DAILY [facility] Last Admin: 03/04/17 09:46 Dose: 400 mg Wuozu-2-Rufg Ethyl Esters (Lovaza -) 2 gm PO BID [facility] Last Admin: 03/04/17 09:47 Dose: 2 gm Pantoprazole Sodium (Protonix -) 40 mg PO DAILY [facility] Last Admin: 03/04/17 11:29 Dose: 40 mg Sevelamer Carbonate (Renvela -) 800 mg PO TIDCM [facility] Last Admin: 03/04/17 11:29 Dose: 800 mg CBC, BMP 03/03/17 07:30 03/03/17 11:00 Microbiology 03/01/17 13:26 Urine Culture - Final Urine - Urine Clean Catch Proteus Mirabilis 03/01/17 12:30 Blood Culture - Preliminary Blood - Peripheral Venous NO GROWTH OBTAINED AFTER 48 HOURS, INCUBATION TO CONTINUE FOR 3 DAYS. 03/01/17 12:30 Blood Culture - Preliminary Blood - Peripheral Venous NO GROWTH OBTAINED AFTER 48 HOURS, INCUBATION TO CONTINUE FOR 3 DAYS. physical exam lungs- clear cvs- s1, s2 rrr abd - soft ext- decreased erythema/swelling a/p better continue abx vanco per level sugar ok add protonix will follow Problem List - Problems (1) Cellulitis and abscess of right lower extremity Code(s): L03.115 - CELLULITIS OF RIGHT LOWER LIMB L02.415 - CUTANEOUS ABSCESS OF RIGHT LOWER LIMB (2) Cellulitis Code(s): L03.90 - CELLULITIS, UNSPECIFIED (3) ESRD (end stage renal disease) on dialysis Code(s): N18.6 - END STAGE RENAL DISEASE Z99.2 - DEPENDENCE ON RENAL DIALYSIS (4) CAD (coronary artery disease) Code(s): I25.10 - ATHSCL HEART DISEASE OF [place] CORONARY ARTERY W/O ANG PCTRS (5) Diabetes 1.5, managed as type 1 Code(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
[2017-03-05] MEDS ORDERED: LEVOTHYROXINE NA 100 MCG TABLET (FP) ONE (05:40)
[2017-03-05] MEDS ORDERED: LEVOTHYROXINE NA 75 MCG TABLET (FP) ONE (05:41)
[2017-03-05] MEDS: LEVOTHYROXINE 75 MCG, LEVOTHYROXINE 100 MCG PO SCH (06:12)
[2017-03-05] MEDS: INSULIN SLIDING SCALE (NOVOLOG) 1 VIAL SQ SCH ×3 (06:12→17:06)
[2017-03-05] MEDS: INSULIN (NOVOLOG MIX 70/30) 100 UNITS/ML MDV SQ SCH ×2 (06:13→22:13)
[2017-03-05] MEDS: SEVELAMER CARBONATE 800 MG TAB (FP) PO SCH ×3 (08:57→17:10)
[2017-03-05] MEDS ORDERED: PT OWN MED DRAWER 7, Y5N ONE ×2 (09:16→21:56)
[2017-03-05] MEDS: MAGNESIUM OXIDE 400 MG TABLET (FP) PO SCH (09:17)
[2017-03-05] MEDS: FUROSEMIDE 40 MG TABLET (FP) PO SCH (09:17)
[2017-03-05] MEDS: PANTOPRAZOLE 40 MG TABLET (FP) PO SCH (09:17)
[2017-03-05] MEDS: LABETALOL HCL 100 MG TABLET (FP) PO SCH ×2 (09:17→22:10)
[2017-03-05] MEDS: LEVOFLOXACIN 250 MG IVPB 50 ML IVPB SCH (09:17)
[2017-03-05] MEDS: ASPIRIN 81 MG CHEWABLE TABLETS PO SCH (09:17)
[2017-03-05] MEDS: OMEGA-3 ACID ETHYL ESTERS (FATTY-ACIDS) 1 GM CAPSULE (FP) PO SCH ×2 (09:18→22:11)
--- NOTE | 2017-03-05 10:56 | PN ---
Progress Note (short form) - Note Progress Note: Renal Follow up for ESRD on HD Pt seen and examined at the bedside feels much better now had dialysis on sunday no sob, swelling, N/V/D, chest pain Vital Signs Temperature 98.0 F 03/05/17 09:25 Pulse Rate 66 03/05/17 09:25 Respiratory Rate 18 03/05/17 09:25 Blood Pressure 144/78 03/05/17 09:25 O2 Sat by Pulse Oximetry (%) 95 03/05/17 09:00 Intake & Output 03/02/17 03/03/17 03/04/17 03/05/17 23:59 23:59 23:59 23:59 Intake Total 450 1130 1355 300 Balance 450 1130 1355 300 Weight 190 lb 11.198 oz 194 lb 1 oz 193 lb 5 oz Gen: NAD CVS: RRR Lungs CTA Abd: soft NT/ND Ext: B/L in compression stocking CBC, BMP 03/03/17 07:30 03/03/17 11:00 A/P 81 year old woman with PMhx of ESRD on HD (x 7 years), DM type 2, Hypertension, CAD s/p PCI and stenting presents with LE eryhtemia and pain and found to have b /l LE cellulitis. #LE cellulitis Will continue Vanco and Levaquin as per ID will check vanco level pre-hd tomorrow and redose as needed #ESRD on HD no indication for dialysis today next treatment planned for tomorrow morning #Thrombocytopenia etiology unclear will not give heparin with HD Trend plt counts no indication for transfusion #Renal osteodystrphy Phos level at goal continue binder with meals Thank you Kenny Yeboah DO Problem List - Problems (1) CAD (coronary artery disease) Code(s): I25.10 - ATHSCL HEART DISEASE OF [place] CORONARY ARTERY W/O ANG PCTRS (2) Cellulitis Code(s): L03.90 - CELLULITIS, UNSPECIFIED (3) ESRD (end stage renal disease) on dialysis Code(s): N18.6 - END STAGE RENAL DISEASE Z99.2 - DEPENDENCE ON RENAL DIALYSIS (4) Hypertension Code(s): I10 - ESSENTIAL (PRIMARY) HYPERTENSION (5) Diabetic acetonemia Code(s): E10.10 - TYPE 1 DIABETES MELLITUS WITH KETOACIDOSIS WITHOUT COMA (6) Thrombocytopenia Code(s): D69.6 - THROMBOCYTOPENIA, UNSPECIFIED
--- NOTE | 2017-03-05 11:44 | PN ---
Progress Note (short form) - Note Progress Note: Pt seen/ examined feels well. no complains wants to see svp of digital Vital Signs Period Temp Pulse Resp BP Sys/Willson Pulse Ox Last 24 Hr 97.7 F-98.1 F 62-69 16-20 142-170/66-78 95-98 Active Medications Aspirin (Asa -) 81 mg PO DAILY [facility] Last Admin: 03/05/17 09:17 Dose: 81 mg Furosemide (Lasix -) 80 mg PO DAILY [facility] Last Admin: 03/05/17 09:17 Dose: 80 mg Levofloxacin (Levaquin 250 Mg Premixed Ivpb -) 50 mls @ 50 mls/hr IVPB Q2D@ 1000 [facility] Last Admin: 03/05/17 09:17 Dose: 50 mls/hr Vancomycin HCl 1,000 mg/ (Dextrose) 250 mls @ 166.667 mls/hr IVPB ONCE ONE PRN Reason: Protocol Stop: 03/06/17 09:29 Insulin Aspart (Novolog Mix 70/30 Vial) 10 units SQ HS [facility] Last Admin: 03/04/17 21:49 Dose: Not Given Insulin Aspart (Novolog Mix 70/30 Vial) 8 units SQ AM [facility] Last Admin: 03/05/17 06:13 Dose: Not Given Insulin Aspart (Novolog Vial Sliding Scale -) 1 vial SQ TIDAC [facility] PRN Reason: Protocol Last Admin: 03/05/17 11:22 Dose: Not Given Labetalol HCl (Normodyne -) 300 mg PO BID [facility] Last Admin: 03/05/17 09:17 Dose: 300 mg Levothyroxine Sodium 75 mcg/ (Levothyroxine Sodium 100 mcg) 175 mcg PO DAILY@ 0700 [facility] Last Admin: 03/05/17 06:12 Dose: 175 mcg Magnesium Oxide (Mag-Ox -) 400 mg PO DAILY [facility] Last Admin: 03/05/17 09:17 Dose: 400 mg Gbafi-4-Jowt Ethyl Esters (Lovaza -) 2 gm PO BID [facility] Last Admin: 03/05/17 09:18 Dose: 2 gm Pantoprazole Sodium (Protonix -) 40 mg PO DAILY [facility] Last Admin: 03/05/17 09:17 Dose: 40 mg Sevelamer Carbonate (Renvela -) 800 mg PO TIDCM [facility] Last Admin: 03/05/17 08:57 Dose: 800 mg CBC, BMP 07/08/17 07:30 03/03/17 11:00 Microbiology 03/01/17 12:30 Blood Culture - Preliminary Blood - Peripheral Venous NO GROWTH OBTAINED AFTER 72 HOURS, INCUBATION TO CONTINUE FOR 2 DAYS. 03/01/17 12:30 Blood Culture - Preliminary Blood - Peripheral Venous NO GROWTH OBTAINED AFTER 72 HOURS, INCUBATION TO CONTINUE FOR 2 DAYS. 03/01/17 13:26 Urine Culture - Final Urine - Urine Clean Catch Proteus Mirabilis physical exam. conscious / cooperative lungs- clear cvs- s1, s2 rrr abd - soft ext- dressing + a/p better continue abx vanco per level i/d to follow podiatry eval will follow Problem List - Problems (1) Cellulitis and abscess of right lower extremity Code(s): L03.115 - CELLULITIS OF RIGHT LOWER LIMB L02.415 - CUTANEOUS ABSCESS OF RIGHT LOWER LIMB (2) Cellulitis Code(s): L03.90 - CELLULITIS, UNSPECIFIED (3) ESRD (end stage renal disease) on dialysis Code(s): N18.6 - END STAGE RENAL DISEASE Z99.2 - DEPENDENCE ON RENAL DIALYSIS (4) CAD (coronary artery disease) Code(s): I25.10 - ATHSCL HEART DISEASE OF [place] CORONARY ARTERY W/O ANG PCTRS (5) Diabetes 1.5, managed as type 1 Code(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
--- NOTE | 2017-03-05 16:18 | PN ---
Progress Note, Physician History of Present Illness: No c/o leg pain No fever/ chills Vanco level noted - Current Medication List Current Medications: Active Medications Aspirin (Asa -) 81 mg PO DAILY [facility] Last Admin: 03/05/17 09:17 Dose: 81 mg Furosemide (Lasix -) 80 mg PO DAILY [facility] Last Admin: 03/05/17 09:17 Dose: 80 mg Levofloxacin (Levaquin 250 Mg Premixed Ivpb -) 50 mls @ 50 mls/hr IVPB Q2D@ 1000 [facility] Last Admin: 03/05/17 09:17 Dose: 50 mls/hr Vancomycin HCl 1,000 mg/ (Dextrose) 250 mls @ 166.667 mls/hr IVPB ONCE ONE PRN Reason: Protocol Stop: 03/06/17 09:29 Insulin Aspart (Novolog Mix 70/30 Vial) 10 units SQ HS [facility] Last Admin: 03/04/17 21:49 Dose: Not Given Insulin Aspart (Novolog Mix 70/30 Vial) 8 units SQ AM [facility] Last Admin: 03/05/17 06:13 Dose: Not Given Insulin Aspart (Novolog Vial Sliding Scale -) 1 vial SQ TIDAC [facility] PRN Reason: Protocol Last Admin: 03/05/17 11:22 Dose: Not Given Labetalol HCl (Normodyne -) 300 mg PO BID [facility] Last Admin: 03/05/17 09:17 Dose: 300 mg Levothyroxine Sodium 75 mcg/ (Levothyroxine Sodium 100 mcg) 175 mcg PO DAILY@ 0700 [facility] Last Admin: 03/05/17 06:12 Dose: 175 mcg Magnesium Oxide (Mag-Ox -) 400 mg PO DAILY [facility] Last Admin: 03/05/17 09:17 Dose: 400 mg [id number]-8-[id number] Ethyl Esters (Lovaza -) 2 gm PO BID [facility] Last Admin: 03/05/17 09:18 Dose: 2 gm Pantoprazole Sodium (Protonix -) 40 mg PO DAILY [facility] Last Admin: 03/05/17 09:17 Dose: 40 mg Sevelamer Carbonate (Renvela -) 800 mg PO TIDCM [facility] Last Admin: 03/05/17 12:22 Dose: 800 mg - Objective Vital Signs: Vital Signs Temperature 98.0 F 03/05/17 14:40 Pulse Rate 62 03/05/17 14:40 Respiratory Rate 18 03/05/17 14:40 Blood Pressure 146/66 03/05/17 14:40 O2 Sat by Pulse Oximetry (%) 95 03/05/17 11:05 Constitutional: Yes: No Distress, Obese Cardiovascular: Yes: Regular Rate and Rhythm, S1, S2 Respiratory: Yes: CTA Bilaterally Gastrointestinal: Yes: Normal Bowel Sounds, Soft. No: Tenderness Extremities: Yes: Other (decreased bilateral LE swelling/ eythema/ warmth) Labs: CBC, BMP 03/03/17 07:30 03/03/17 11:00 INR, PTT INR 1.10 (0.82-1.09) 03/01/17 12:30 Assessment/Plan Bilateral LE cellulitis- improved UTI Proteus sp. ESRD PCN allergy Continue levaquin po additional 3d Vancomycin level theraputic No objection to discharge from ID standpoint
[2017-03-06] MEDS ORDERED: LEVOTHYROXINE NA 100 MCG TABLET (FP) ONE (06:39)
[2017-03-06] MEDS ORDERED: LEVOTHYROXINE NA 75 MCG TABLET (FP) ONE (06:40)
[2017-03-06] MEDS: LEVOTHYROXINE 75 MCG, LEVOTHYROXINE 100 MCG PO SCH (06:47)
[2017-03-06] MEDS: INSULIN SLIDING SCALE (NOVOLOG) 1 VIAL SQ SCH ×3 (06:49→17:38)
[2017-03-06] MEDS: INSULIN (NOVOLOG MIX 70/30) 100 UNITS/ML MDV SQ SCH (06:49)
[2017-03-06] MEDS ORDERED: VANCOMYCIN 1,000 MG in DEXTROSE 5%-WATER - 250 ML IVPB ONE (08:00)
[2017-03-06] MEDS: SEVELAMER CARBONATE 800 MG TAB (FP) PO SCH ×3 (08:09→17:43)
[2017-03-06] MEDS ORDERED: PT OWN MED DRAWER 7, Y5N ONE (08:59)
[2017-03-06] MEDS: MAGNESIUM OXIDE 400 MG TABLET (FP) PO SCH (09:05)
[2017-03-06] MEDS: PANTOPRAZOLE 40 MG TABLET (FP) PO SCH (09:05)
[2017-03-06] MEDS: ASPIRIN 81 MG CHEWABLE TABLETS PO SCH (09:05)
[2017-03-06] MEDS: LABETALOL HCL 100 MG TABLET (FP) PO SCH (09:05)
[2017-03-06] MEDS: FUROSEMIDE 40 MG TABLET (FP) PO SCH (09:05)
[2017-03-06] MEDS: OMEGA-3 ACID ETHYL ESTERS (FATTY-ACIDS) 1 GM CAPSULE (FP) PO SCH (09:18)
[2017-03-06 10:15] LABS: MCHC 32.5 g/dl (32.0-36.0); MEAN CELL VOLUME 101.5 fl (80-96); MEAN PLT VOLUME 8.7 fl (7.5-11.1); PLATELET COUNT 97 K/MM3 (134-434); RDW 16.7 % (11.6-15.6); WHITE BLOOD COUNT 4.1 K/mm3 (4.0-10.0)
--- NOTE | 2017-03-06 10:18 | DS ---
Physical Examination Vital Signs: Vital Signs Temperature 97.8 F 03/06/17 06:00 Pulse Rate 65 03/06/17 09:27 Respiratory Rate 16 03/06/17 06:00 Blood Pressure 137/61 03/06/17 06:00 O2 Sat by Pulse Oximetry (%) 98 03/06/17 09:27 Constitutional: Yes: No Distress, Calm Cardiovascular: Yes: Regular Rate and Rhythm Respiratory: Yes: Diminished Gastrointestinal: Yes: Normal Bowel Sounds, Soft. 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 (Acute) ESRD (end stage renal disease) on dialysis (Acute) Hypertension (Acute) Hypothyroidism (Acute) Thrombocytopenia (Acute) Hospital Course: Admitted for cellulitis of legs and edema Seen by ID HD as per Renal was on iv antibiotics pt better she will need STR for deconditioning and gait strength stable for dc to STR Condition: Improved - Instructions Referrals: Kathy at [facility] [Outside] Brittni Bolaños MD [Primary Care Provider] - Disposition: [facility] - Home Medications Comprehensive Discharge Medication List: Ambulatory Orders Ascorbic Acid [Vitamin C] 1 tab PO DAILY 01/24/13 Cholecalciferol (Vitamin D3) [Vitamin D] 1,000 unit PO DAILY 01/24/13 Furosemide [Lasix -] 80 mg PO DAILY 01/24/13 Insulin Aspart Prot/Insuln Asp [Novolog Mix 70-30 Vial] 8 unit SQ AM 01/24/13 Insulin Aspart Prot/Insuln Asp [Novolog Mix 70-30 Vial] 10 unit SQ HS 01/24/13 Labetalol HCl [Normodyne -] 300 mg PO BID 01/24/13 Metolazone 5 mg PO DAILY 01/24/13 [place]-3 Acid Ethyl Esters [Lovaza -] 1,400 mg PO BID 01/24/13 Sevelamer Carbonate [Renvela -] 800 mg PO TID 01/24/13 Vitamin A 1 tab PO DAILY 01/24/13 Vitamin E 1 tab PO DAILY 01/24/13 Folic Acid - 1 mg PO DAILY #0 tablet 01/27/13 Magnesium Oxide [Mag-Ox -] 400 mg PO DAILY #0 tablet 01/27/13
[2017-03-06 10:42] LABS: ANION GAP 10 (8-16); CALCIUM 8.5 mg/dL (8.5-10.1); CO2 28 mmol/L (21-32); CREATININE 6.9 mg/dL (0.55-1.02); GLUCOSE,RANDOM 79 mg/dL (74-106); PHOSPHOROUS 3.1 mg/dL (2.5-4.9)
--- NOTE | 2017-03-06 11:02 | PN ---
Progress Note (short form) - Note Progress Note: Renal Follow up for ESRD on HD Pt seen and examined during dialysis pt is awake and alert reports tighness in LE no tenderness, chills, fever BP 160/90 UF goal increased to 3.25L as pt has LE edema AVF with good flow Vital Signs Temperature 97.8 F 03/06/17 06:00 Pulse Rate 64 03/06/17 10:00 Respiratory Rate 18 03/06/17 10:00 Blood Pressure 164/74 03/06/17 10:00 O2 Sat by Pulse Oximetry (%) 98 03/06/17 09:27 Intake & Output 03/03/17 03/04/17 03/05/17 03/06/17 23:59 23:59 23:59 23:59 Intake Total 1130 1355 1250 0 Balance 1130 1355 1250 0 Weight 194 lb 1 oz 193 lb 5 oz 194 lb 4.8 oz Gen: NAD CVS: RRR Lungs CTA Abd: soft NT/ND Ext: B/L in compression stocking CBC, BMP 03/06/17 05:35 03/06/17 05:35 Current Medications Aspirin (Asa -) 81 mg PO DAILY [facility] Last Admin: 03/06/17 09:05 Dose: 81 mg Furosemide (Lasix -) 80 mg PO DAILY [facility] Last Admin: 03/06/17 09:05 Dose: 80 mg Insulin Aspart (Novolog Mix 70/30 Vial) 10 units SQ HS [facility] Last Admin: 03/05/17 22:13 Dose: Not Given Insulin Aspart (Novolog Mix 70/30 Vial) 8 units SQ AM [facility] Last Admin: 03/06/17 06:49 Dose: Not Given Insulin Aspart (Novolog Vial Sliding Scale -) 1 vial SQ TIDAC [facility] PRN Reason: Protocol Last Admin: 03/06/17 06:49 Dose: Not Given Labetalol HCl (Normodyne -) 300 mg PO BID [facility] Last Admin: 03/06/17 09:05 Dose: 300 mg Levofloxacin (Levaquin -) 250 mg PO Q48H [facility] Levothyroxine Sodium 75 mcg/ (Levothyroxine Sodium 100 mcg) 175 mcg PO DAILY@ 0700 [facility] Last Admin: 03/06/17 06:47 Dose: 175 mcg Magnesium Oxide (Mag-Ox -) 400 mg PO DAILY [facility] Last Admin: 07/11/17 09:05 Dose: 400 mg Gojjf-1-Sxjp Ethyl Esters (Lovaza -) 2 gm PO BID [facility] Last Admin: 03/06/17 09:18 Dose: 2 gm Pantoprazole Sodium (Protonix -) 40 mg PO DAILY [facility] Last Admin: 03/06/17 09:05 Dose: 40 mg Sevelamer Carbonate (Renvela -) 800 mg PO TIDCM [facility] Last Admin: 03/06/17 08:09 Dose: 800 mg A/P 81 year old woman with PMhx of ESRD on HD (x 7 years), DM type 2, Hypertension, CAD s/p PCI and stenting presents with LE eryhtemia and pain and found to have b /l LE cellulitis. #LE cellulitis Continue oral levaquin Vanco level is theraputic today, will hold dose with Hd ? need for any further Vanco IV - will discuss with ID #ESRD on HD Tolerating dialysis well Goal UF 3.25L Dose all meds for intermittent HD #Thrombocytopenia etiology unclear will not give heparin with HD Trend plt counts no indication for transfusion #Renal osteodystrphy Phos level at goal continue binder with meals Thank you Kenny Yeboah DO Problem List - Problems (1) CAD (coronary artery disease) Code(s): I25.10 - ATHSCL HEART DISEASE OF [place] CORONARY ARTERY W/O ANG PCTRS (2) Cellulitis Code(s): L03.90 - CELLULITIS, UNSPECIFIED (3) ESRD (end stage renal disease) on dialysis Code(s): N18.6 - END STAGE RENAL DISEASE Z99.2 - DEPENDENCE ON RENAL DIALYSIS (4) Hypertension Code(s): I10 - ESSENTIAL (PRIMARY) HYPERTENSION (5) Diabetic acetonemia Code(s): E10.10 - TYPE 1 DIABETES MELLITUS WITH KETOACIDOSIS WITHOUT COMA (6) Thrombocytopenia Code(s): D69.6 - THROMBOCYTOPENIA, UNSPECIFIED
[2017-03-06 15:38] VITALS: BP 139/70; PULSE 63; TEMP 98.1
--- NOTE | 2017-03-06 15:40 | CONSULT ---
Consult - text type - Consultation Consultation Note: Podiatry Consultation: 81 year old DM F presents for admission for RLE cellulitis workup and inferior heel pressure wound. She denies F/V/N/C/SOB/CP. Currently being seen in HD. Currently afebrile, VSS. PMHx: IDDM, CAD s/p stent, ESRD on HD (TTrS), AFib, HTN, HLP, peripheral neuropathy Meds: noted in chart ALL: ASA, erythromycin, PCN, verapamil KINSEY: R foot: pedal pulses palpable, TG wnl, CFT brisk to all toes. There is an inferior heel pressure ulcer, stage 2, with superficial dry eschar, no deep probing, no purulent drainage, no fluctuance, no periwound erythema, no ascending cellulitis, no signs of active infection. WBC: 4.1 R foot XR: no radiographic evidence of osteomyelitis Arterial Duplex: no hemodynamically significant stenosis Nails are elongated, discolored, thickened, tender with subungual debris x 10 Imp: 81 year old DM F with R heel pressure ulcer stage 2; onychomycosis x 10 1. Manual debridement of mycotic nails x 10 with nail nipper. Patient tolerated the procedure well. 2. Recommend not deroofing the stage 2 pressure ulcer. Should heal appropriately with offloading measures. I have recommended the patient obtain a heel-offloading boot and heel-offloading measures described to patient. 3. Glycemic control. 4. DM foot hygiene discussed. 5. No podiatric surgical intervention at this time. May f/u in [facility] upon discharge. Thank you for the courtesy of this consultation. Alan Martinez DPM
[2017-03-07] MEDS ORDERED: LEVOFLOXACIN 250 MG TABLET (FP) PO SCH (06:00)
== END 2017-03-06 19:42 | DRG 638 ==
LOC: JER 11:04 → JERBED 13:52 → J5S 15:30
PROVIDERS: ADMIT Internal Medicine; ATTEND Internal Medicine
PROC: 0HBQXZZ Excision of Finger Nail, External Approach (ICD-10-PCS; principal; 2017-03-06)
PROC: 5A1D60Z (ICD-10-PCS; 2017-03-06)
DX: E11.628 Type 2 diabetes mellitus with other skin complications (principal); L03.116 Cellulitis of left lower limb; N39.0 Urinary tract infection, site not specified; I12.0 Hypertensive chronic kidney disease with stage 5 chronic kidney disease or end stage renal disease; L03.115 Cellulitis of right lower limb; N18.6 End stage renal disease; D69.6 Thrombocytopenia, unspecified; N25.0 Renal osteodystrophy; I25.10 Atherosclerotic heart disease of native coronary artery without angina pectoris; E03.9 Hypothyroidism, unspecified; B96.4 Proteus (mirabilis) (morganii) as the cause of diseases classified elsewhere; Z98.61 Coronary angioplasty status; E10.22 Type 1 diabetes mellitus with diabetic chronic kidney disease; Z99.2 Dependence on renal dialysis; E11.42 Type 2 diabetes mellitus with diabetic polyneuropathy; Z79.4 Long term (current) use of insulin
CPT/HCPCS: 36415; 71010-TC; 73630-TC-RT; 80048; 80053; 81003; 81015; 82550; 82565; 82803; 83605; 84100; 84484; 84520; 85025; 85027; 85610; 85651; 85730; 86140; 86704; 86706; 86708; 86803; 87040; 87086; 87186; 87340; 93005; 93010; 93926-TC; 93971-TC; 99283-25; G0480; J1644

== ENCOUNTER 2017-07-22 13:17 | Inpatient (IN) | payer OTHER, BC ==
[2017-07-22 13:38] VITALS: BMI 23.7
--- NOTE | 2017-07-22 14:26 | PDOC ---
Attending Attestation - Resident Resident Name: Marcos James - ED Attending Attestation I have performed the following: I have examined & evaluated the patient, The case was reviewed & discussed with the resident, I agree w/resident's findings & plan, Exceptions are as noted - HPI HPI: 07/22/17 15:19 82yo F hx ESRD on HD (full session yesterday), OA p/w R hip, R knee, and R ankle pain that she relates to her arthritis since yesterday evening. Denies trauma. States symptoms occurred after dinner last night when she felt her joints lock up. She has not been able to move since, called her sister this morning who went over and found that the patient was barely able to move due to the pain. Tried tylenol for the pain with minimal relief. Not overly exerting herself. Denies fevers, chills but reports that her LE is increasingly red. Her sister states her leg is as red as it was when she had cellulitis last in March. Denies CP, SOB, headache, focal weakness or numbness. Denies falls. - Physicial Exam PE: 07/22/17 16:34 GENERAL: Awake, alert, and fully oriented, appears uncomfortable ENT: Auricles normal inspection, hearing grossly normal, nares patent, oropharynx clear without exudates. Moist mucosa LUNGS: Breath sounds equal, clear to auscultation bilaterally. No wheezes, and no crackles HEART: Regular rate and rhythm, normal S1 and S2, no murmurs, rubs or gallops ABDOMEN: Soft, nontender, normoactive bowel sounds. No guarding, no rebound. No masses EXTREMITIES: RLE with 2+ pitting edema from ankle to distal thigh, erythema and warm of garcia, open wound to R heel with minimal drainage. Remainder of extremities with normal range of motion, no edema. No clubbing or cyanosis. No cords, erythema, or tenderness NEUROLOGICAL: Normal speech, cranial nerves intact, negative pronator drift, 5/ 5 strength in all 4 extremities, normal sensation to light touch in all 4 extremities, normal cerebellar exam, normal reflexes and tone. gait deferred - Medical Decision Making 07/22/17 16:37 82-year-old female with a history of osteoarthritis and right lower extremity cellulitis right lower extremity pain as well as increasing redness over the distal right lower extremity. Vitals are unremarkable. Exam consistent with cellulitis. Will obtain radiographs to rule out fractures or immobilization of hardware in the hip given severe pain and US to r/o DVT. Discussed with Dr. Wisdom who recommends oxycodone for pain control.
[2017-07-22 14:50] LABS: BASOPHIL 0.6 % (0-2.0); EOSINOPHIL 0.2 % (0-4.5); MCH 35.6 pg (25.7-33.7); MCHC 32.9 g/dl (32.0-36.0); MEAN CELL VOLUME 108.3 fl (80-96); MEAN PLT VOLUME 8.8 fl (7.5-11.1); PLATELET COUNT 109 K/MM3 (134-434); RDW 16.5 % (11.6-15.6)
[2017-07-22 15:16] LABS: ALBUMIN 2.8 g/dl (3.4-5.0); ALK PHOS 212 U/L (45-117); ANION GAP 8 (8-16); BILIRUBIN,TOTAL 1.4 mg/dL (0.2-1.0); CALCIUM 7.6 mg/dL (8.5-10.1); CO2 26 mmol/L (21-32); CREATININE 4.3 mg/dL (0.55-1.02); GLUCOSE,RANDOM 122 mg/dL (74-106); SGOT/AST 31 U/L (15-37); SGPT/ALT 16 U/L (12-78); TOT PROT 7.3 g/dl (6.4-8.2)
[2017-07-22 15:21] LABS: ANISOCYTOSIS 1+; HYPOCHROMIA 1+; MACROCYTOSIS 1+
[2017-07-22 15:22] LABS: PLATELET COMMENTS NO CLUMPING NOTED
--- NOTE | 2017-07-22 15:22 | PDOC ---
History of Present Illness - General Chief Complaint: Weakness Stated Complaint: LEG PAIN Time Seen by Provider: 07/22/17 13:31 History Source: Patient Exam Limitations: No Limitations - History of Present Illness Initial Comments: 07/22/17 15:06 82F with pmh of ESRD on dialysis (session yesterday) and Osteoarthritis presents with acute exacerbation of disease on right hip, knee and ankle since yesterday evening. She went home after dialysis, had dinner at home then tried to get to bed but couldn't get up. Was found by sister in the morning who called 911 to help her get up. Tried tylenol with no relief. No recent trauma. Denies fever, chills,. Nurse did house call on sunday for wound care of her right heel. But hasn't seen Dr. Rodrigues (wound care [facility] ) in two weeks. Denies CP, SOB, headache, focal weakness or numbness. Denies falls. Past History - Past Medical History Allergies/Adverse Reactions: Allergies Allergy/AdvReac Type Severity Reaction Status Date / Time aspirin Allergy Verified 07/22/17 13:34 erythromycin base Allergy Verified 07/22/17 13:34 Penicillins Allergy Verified 07/22/17 13:34 verapamil [Verapamil] Allergy Verified 07/22/17 13:34 Home Medications: Ambulatory Orders Ascorbic Acid [Vitamin C -] 500 mg PO DAILY 07/22/17 Aspirin [ASA -] 81 mg PO DAILY 07/22/17 Cholecalciferol (Vitamin D3) [D-2000] 2,000 unit PO DAILY 07/22/17 Cinacalcet HCl [Sensipar] 30 mg PO ASDIR 07/22/17 Collagenase Clostridium Hist. [Santyl] 90 gm TP DAILY 07/22/17 Fish Oil/Borage/Flax/Om3,6,9#1 [[place] 3-6-9 1,200 mg Softgel] 1,200 mg PO BID Furosemide [Lasix] 80 mg PO DAILY 07/22/17 Insulin Aspart Prot/Insuln Asp [Novolog Mix 70-30 Vial] 6 unit SQ AM 07/22/17 Insulin Aspart Prot/Insuln Asp [Novolog Mix 70-30 Vial] 8 unit SQ HS 07/22/17 Labetalol HCl 300 mg PO BID 07/22/17 Levothyroxine Sodium [Synthroid] 200 mcg PO AM 07/22/17 Magnesium Oxide 400 mg PO DAILY 07/22/17 Mv-Mn/FA/Vit K/Lycop/Lut/Coq10 [Daily Multivitamin Capsule] 1 each PO DAILY Pantoprazole Sodium [Protonix] 20 mg PO DAILY 07/22/17 Sevelamer Carbonate [Renvela] 800 mg PO TID 07/22/17 Vitamin A Palmitate [Vitamin A] 1 tab PO DAILY 07/22/17 Cardiac Disorders: Yes (2000) COPD: No Diabetes: Yes Dialysis: Yes () HTN: Yes Hypercholesterolemia: Yes Thyroid Disease: Yes - Surgical History Cardiac Surgery: Yes Orthopedic Surgery: Yes - Suicide/Smoking/Psychosocial Hx Smoking Status: No Smoking History: Never smoked Have you smoked in the past 12 months: No Number of Cigarettes Smoked Daily: 0 Information on smoking cessation initiated: No Hx Alcohol Use: No Drug/Substance Use Hx: No Substance Use Type: None Hx Substance Use Treatment: No Review of Systems - Review of Systems Able to Perform ROS?: Yes Constitutional: No: Symptoms Reported HEENTM: No: Symptoms Reported Respiratory: No: Symptoms reported Cardiac (ROS): No: Symptoms Reported ABD/GI: No: Symptoms Reported : No: Symptoms Reported Musculoskeletal: Yes: Joint Pain, Joint Swelling, Muscle Weakness Integumentary: Yes: Change in Color Neurological: No: Symptoms reported All Other Systems: Reviewed and Negative *Physical Exam - Vital Signs Last Vital Signs Temp Pulse Resp BP Pulse Ox 98.6 F 86 16 110/77 100 07/22/17 13:34 07/22/17 13:34 07/22/17 13:34 07/22/17 13:34 07/22/17 13:34 - Physical Exam General Appearance: Yes: Nourished, Appropriately Dressed, Moderate Distress ( needed more pillow support under hip and knee) HEENT: positive: EOMI, LOIS, Normal ENT Inspection Neck: negative: Tender Respiratory/Chest: positive: Lungs Clear, Normal Breath Sounds. negative: Chest Tender Cardiovascular: positive: Regular Rhythm, Regular Rate, S1, S2 Vascular Pulses: Dorsalis-Pedis (R): 1+, Doralis-Pedis (L): 1+ Extremity: positive: Delayed Capillary Refill, Pedal Edema, Swelling, Erythema, Inflammation, Other (erythematous right extremity, foul odor emanating from wound which is dark and deep. ). negative: Normal Range of Motion Neurologic: positive: Fully Oriented, Alert, Normal Mood/Affect, Normal Response ED Treatment Course - LABORATORY CBC & Chemistry Diagram: 07/22/17 14:43 07/22/17 14:43 - ADDITIONAL ORDERS Additional order review: 07/22/17 14:43 RBC 3.46 L MCV 108.3 H MCHC 32.9 RDW 16.5 H MPV 8.8 Neutrophils % 85.0 H D Lymphocytes % 4.8 L D Monocytes % 9.4 Eosinophils % 0.2 D Basophils % 0.6 - RADIOLOGY Radiology Studies Ordered: Category Date Time Status ANKLE-RIGHT [RAD] Stat Radiology 07/22/17 13:59 Ordered CHEST X-RAY PORTABLE* [RAD] Stat Radiology 07/22/17 13:59 Ordered HIP-RIGHT [RAD] Stat Radiology 07/22/17 13:59 Ordered KNEE 2 POS-RIGHT [RAD] Stat Radiology 07/22/17 13:59 Ordered DUPLEX VASCUL US-2LEGS [US] Stat Ultrasound 07/22/17 14:51 Ordered Medical Decision Making - Medical Decision Making 07/22/17 17:54 82F with pmh of ESRD on dialysis (session yesterday) and Osteoarthritis presents with acute exacerbation of disease on right hip, knee and ankle since yesterday evening. Right lower extremity red and looking cellulitic on exam. Xray questionable for fractures, rene. impacted knee, ordered Ct scan...Pending... Venous Duplex pending ... Consulted with Dr. Bolaños who agreed to admit the patient to med/surg for evaluation of right leg wound/cellulitis. *DC/Admit/Observation/Transfer Diagnosis at time of Disposition: Cellulitis and abscess of right lower extremity - Discharge Dispostion Admit: Yes - Referrals - Patient Instructions - Post Discharge Activity
[2017-07-22] MEDS ORDERED: oxyCODONE HCL 5 MG TABLET PO ONE (15:55)
[2017-07-22] MEDS ORDERED: oxyCODONE HCL 5 MG TABLET ONE (16:15)
[2017-07-22] MEDS ORDERED: AZTREONAM 1 GM/10 ML SYRINGE (RESTRICTED TO ID) IVPUSH ONE (18:49)
[2017-07-22] MEDS ORDERED: VANCOMYCIN 1 GRAM (PRE-DOCKED) 1,000 MG/250 ML BAG IVPB ONE (18:49)
[2017-07-22] MEDS ORDERED: AZTREONAM 1 GRAM SYRINGE 1 GM/10 ML DISP.SYRIN IVPUSH ONE (19:15)
[2017-07-22] MEDS ORDERED: ACETAMINOPHEN 325 MG TABLET (FP) PO PRN (20:22)
[2017-07-22] MEDS ORDERED: oxyCODONE HCL 5 MG TABLET PO PRN (20:22)
[2017-07-22] MEDS: LABETALOL HCL 100 MG TABLET (FP) PO SCH (21:25)
[2017-07-22] MEDS: INSULIN (NOVOLOG MIX 70/30) 100 UNITS/ML MDV SQ SCH (21:29)
[2017-07-22] MEDS: SEVELAMER CARBONATE 800 MG TAB (FP) PO SCH (21:29)
[2017-07-22] MEDS: COLLAGENASE CLOSTRIDIUM HIST. 30 GRAMS TUBE TP SCH (23:12)
[2017-07-22] MEDS: oxyCODONE HCL 5 MG TABLET PO PRN (23:32)
[2017-07-22] MEDS: ACETAMINOPHEN 325 MG TABLET (FP) PO PRN (23:32)
[2017-07-23] MEDS: LEVOTHYROXINE NA 100 MCG TABLET (FP) PO SCH (06:19)
[2017-07-23] MEDS: INSULIN (NOVOLOG MIX 70/30) 100 UNITS/ML MDV SQ SCH ×2 (06:21→21:33)
[2017-07-23] MEDS: INSULIN SLIDING SCALE (NOVOLOG) 1 VIAL SQ SCH ×2 (06:21→16:51)
[2017-07-23] MEDS: SEVELAMER CARBONATE 800 MG TAB (FP) PO SCH ×3 (08:12→17:29)
[2017-07-23 08:14] LABS: BASOPHIL 0.4 % (0-2.0); EOSINOPHIL 0.7 % (0-4.5); MCH 35.7 pg (25.7-33.7); MEAN PLT VOLUME 9.1 fl (7.5-11.1); PLATELET COUNT 112 K/MM3 (134-434); RDW 16.6 % (11.6-15.6)
[2017-07-23 08:47] LABS: ALBUMIN 2.4 g/dl (3.4-5.0); ANION GAP 6 (8-16); CALCIUM 7.7 mg/dL (8.5-10.1); CO2 28 mmol/L (21-32); GLUCOSE,RANDOM 71 mg/dL (74-106); SGOT/AST 24 U/L (15-37); SGPT/ALT 14 U/L (12-78)
[2017-07-23 08:49] LABS: ALK PHOS 180 U/L (45-117); BILIRUBIN,TOTAL 1.4 mg/dL (0.2-1.0); TOT PROT 6.4 g/dl (6.4-8.2)
--- NOTE | 2017-07-23 09:23 | CONSULT ---
Consultation: REQUESTING PROVIDER: CONSULT REQUEST: We have been asked to medically evaluate this patient for cellulitis. HISTORY OF PRESENT ILLNESS: 82F w/ hx of DM, OA, ESRD on HD, and recent RLE cellulitis in 02/2017 presenting with right hip, knee, and ankle pain for 2 days. Per patient, she was in her USOH until 2 days ago when she was ready to go to bed, and her right leg began significantly hurting her. She stated that it locked up, and she was unable to move it due to pain. When her daughter came over and saw her, she decided to take her to the hospital. Pt reports a history of intermittent right leg pain which she attributes to her OA which is usually controlled with tylenol , but she reports that this pain was worse than she ever experienced. She endorses a right heel ulcer for which she sees Dr. Sinclair and receives wound care. She denies fevers, chills, numbness, weakness, chest pain, SOB, abdominal pain, n/v/d/c, and dysuria. Of note, pt was admitted for RLE cellulitis and ulcer in 02/2017. Wound cultures grew E. coli and staph coagulase negative. Pt was successfully treated with vancomycin and levaquin. REVIEW OF SYSTEMS: CONSTITUTIONAL: Absent: fever, chills, diaphoresis, generalized weakness, malaise, loss of appetite, weight change HEENT: Absent: rhinorrhea, nasal congestion, throat pain, throat swelling, difficulty swallowing, mouth swelling, ear pain, eye pain, visual changes CARDIOVASCULAR: Absent: chest pain, syncope, palpitations, irregular heart rate, lightheadedness , peripheral edema RESPIRATORY: Absent: cough, shortness of breath, dyspnea with exertion, orthopnea, wheezing, stridor, hemoptysis GASTROINTESTINAL: Absent: abdominal pain, abdominal distension, nausea, vomiting, diarrhea, constipation, melena, hematochezia GENITOURINARY: Absent: dysuria, frequency, urgency, hesitancy, hematuria, flank pain, genital pain MUSCULOSKELETAL: Absent: myalgia, back pain, neck pain present: right leg pain SKIN: Absent: itching, pallor present: erythema of both legs HEMATOLOGIC/IMMUNOLOGIC: Absent: easy bleeding, easy bruising, lymphadenopathy, frequent infections ENDOCRINE: Absent: unexplained weight gain, unexplained weight loss, heat intolerance, cold intolerance NEUROLOGIC: Absent: headache, focal weakness or paresthesias, dizziness, unsteady gait, seizure, mental status changes, bladder or bowel incontinence PSYCHIATRIC: Absent: anxiety, depression, suicidal or homicidal ideation, hallucinations. PHYSICAL EXAMINATION Vital Signs - 24 hr 07/22/17 07/22/17 07/22/17 13:34 13:40 21:00 Temperature 98.6 F Pulse Rate 86 Respiratory 16 Rate Blood Pressure 110/77 O2 Sat by Pulse 100 100 99 Oximetry (%) 07/22/17 07/23/17 23:49 06:00 Temperature 99.2 F 99.0 F Pulse Rate 116 H 109 H Respiratory 16 16 Rate Blood Pressure 110/74 97/54 O2 Sat by Pulse 99 Oximetry (%) GENERAL: pleasant elderly female, awake, alert, and fully oriented, in no acute distress. HEAD: Normal with no signs of trauma. EYES: Pupils equal, round and reactive to light, extraocular movements intact, sclera anicteric, conjunctiva clear. No lid lag. EARS, NOSE, THROAT: Ears normal, nares patent, oropharynx clear without exudates. Moist mucous membranes. NECK: Normal range of motion, supple without lymphadenopathy, JVD, or masses. LUNGS: Breath sounds equal, clear to auscultation bilaterally. No wheezes, and no crackles. No accessory muscle use. HEART: tachycardic, normal rhythm, soft systolic murmur ABDOMEN: Soft, nontender, not distended, normoactive bowel sounds, no guarding, no rebound, no masses. No hepatomegaly or splenomegaly. MUSCULOSKELETAL: b/l 2+ LE edema, erythema, warmth, statis dermamatitis changes. stage 2 right heel circular ulcer that is 3cm x 3cm, non draining, very tender to palpation. NEUROLOGICAL: Cranial nerves II-XII intact. Normal speech. PSYCHIATRIC: Cooperative. Good eye contact. Appropriate mood and affect. Laboratory Results - last 24 hr 07/22/17 07/22/17 07/22/17 14:43 14:43 14:43 WBC 8.0 D RBC 3.46 L Hgb 12.3 D Hct 37.4 MCV 108.3 H MCH 35.6 H MCHC 32.9 RDW 16.5 H Plt Count 109 L MPV 8.8 Neutrophils % 85.0 H D Lymphocytes % 4.8 L D Monocytes % 9.4 Eosinophils % 0.2 D Basophils % 0.6 Hypochromia 1+ Platelet Comment No clumping noted Anisocytosis 1+ Macrocytosis 1+ Sodium 132 L Potassium 5.5 H D Chloride 98 Carbon Dioxide 26 Anion Gap 8 BUN 33 H D Creatinine 4.3 H D Creat Clearance w eGFR 9.91 POC Glucometer Random Glucose 122 H D Calcium 7.6 L Total Bilirubin 1.4 H D AST 31 D ALT 16 D Alkaline Phosphatase 212 H B-Natriuretic Peptide 49661.24 H Total Protein 7.3 Albumin 2.8 L 07/22/17 07/23/17 07/23/17 21:28 06:18 06:30 WBC 8.0 RBC 3.09 L Hgb 11.0 D Hct 33.4 MCV 108.0 H MCH 35.7 H MCHC 33.0 RDW 16.6 H Plt Count 112 L MPV 9.1 Neutrophils % 80.0 Lymphocytes % 8.8 D Monocytes % 10.1 Eosinophils % 0.7 D Basophils % 0.4 Hypochromia Platelet Comment Anisocytosis Macrocytosis Sodium Potassium Chloride Carbon Dioxide Anion Gap BUN Creatinine Creat Clearance w eGFR POC Glucometer 235 74 Random Glucose Calcium Total Bilirubin AST ALT Alkaline Phosphatase B-Natriuretic Peptide Total Protein Albumin 07/23/17 06:30 WBC RBC Hgb Hct MCV MCH MCHC RDW Plt Count MPV Neutrophils % Lymphocytes % Monocytes % Eosinophils % Basophils % Hypochromia Platelet Comment Anisocytosis Macrocytosis Sodium 133 L Potassium 5.6 H Chloride 99 Carbon Dioxide 28 Anion Gap 6 L BUN 40 H D Creatinine 5.0 H Creat Clearance w eGFR 8.33 POC Glucometer Random Glucose 71 L D Calcium 7.7 L Total Bilirubin 1.4 H AST 24 D ALT 14 Alkaline Phosphatase 180 H B-Natriuretic Peptide Total Protein 6.4 Albumin 2.4 L Active Medications Generic Name Dose Route Start Last Admin Trade Name Freq PRN Reason Stop Dose Admin Acetaminophen 325 mg 07/22/17 20:26 07/22/17 23:32 Tylenol - PO 325 mg Q4H PRN Administration PAIN Aspirin 81 mg 07/23/17 10:00 Asa - PO DAILY ERNESTINE Cinacalcet 30 mg 07/23/17 10:00 Sensipar - PO [id number] ERNESTINE Collagenase 1 applic 07/22/17 21:30 07/22/17 23:12 Santyl - TP 1 applic DAILY ERNESTINE Administration Furosemide 80 mg 07/23/17 10:00 Lasix - PO DAILY ERNESTINE Insulin Aspart 6 units 07/23/17 07:00 07/23/17 06:21 Novolog Mix 70/30 Vial SQ Not Given AM ERNESTINE Insulin Aspart 8 units 07/22/17 22:00 07/22/17 21:29 Novolog Mix 70/30 Vial SQ 8 units HS ERNESTINE Administration Insulin Aspart 1 vial 07/23/17 07:00 07/23/17 06:21 Novolog Vial Sliding Scale - SQ Not Given BIDAC ERNESTINE Protocol Labetalol HCl 300 mg 07/22/17 22:00 07/22/17 21:25 Normodyne - PO 300 mg BID ERNESTINE Administration Levothyroxine Sodium 200 mcg 07/23/17 07:00 07/23/17 06:19 Synthroid - PO 200 mcg AM ERNESTINE Administration Magnesium Oxide 400 mg 07/23/17 10:00 Mag-Ox - PO DAILY ERNESTINE Oxycodone HCl 5 mg 07/22/17 20:25 07/22/17 23:32 Roxicodone - PO 5 mg Q4H PRN Administration PAIN LEVEL 6-10 Pantoprazole Sodium 20 mg 07/23/17 10:00 Protonix - PO DAILY ERNESTINE Sevelamer Carbonate 800 mg 07/22/17 22:00 07/23/17 08:12 Renvela - PO 800 mg TIDCM ERNESTINE Administration R hip XR: metallic hardware rotating into acetabulum R knee Xr: linear sclerotic density just inferior to medial tibial plateau. possible impaction vascular study: no DVT; superficial right greater saphenous vein thrombosis ASSESSMENT/PLAN: 82F w/ hx of DM, OA, ESRD on HD, and recent RLE cellulitis in 02/2017 presenting with right hip, knee, and ankle pain for 2 days. #Right leg pain -likely 2/2 worsening of OA vs. ortho changes as evident by XR. would consider an ortho consult. #RLE erythema -likely 2/2 chronic venous stasis, unlikely to be cellulitis. No fever or leukocytosis. Recommend no antibiotics at this time. -pt reports that the erythema is chronic #R heel ulcer -non draining, healing -management per vascular #rest of medical problems per hospitalist team Plan discussed with attending, Dr. Durand. Dispo: We will continue to follow the patient. Thank you for this consultative opportunity. -Eliot Sheth MD PGY1 Visit type - Emergency Visit Emergency Visit: Yes ED Registration Date: 07/22/17 Care time: The patient presented to the Emergency Department on the above date and was hospitalized for further evaluation of their emergent condition. - New Patient This patient is new to me today: Yes Date on this admission: 07/23/17 - Critical Care Critical Care patient: No
[2017-07-23] MEDS ORDERED: COLLAGENASE CLOSTRIDIUM HIST. 30 GRAMS TUBE TP SCH (10:00)
[2017-07-23] MEDS: COLLAGENASE CLOSTRIDIUM HIST. 30 GRAMS TUBE TP SCH (10:00)
--- NOTE | 2017-07-23 10:18 | PN ---
Teaching Attending Note Name of Resident: Eliot Sheth ATTENDING PHYSICIAN STATEMENT I saw and evaluated the patient. I reviewed the resident's note and discussed the case with the resident. I agree with the resident's findings and plan as documented. SUBJECTIVE: right leg has been intermittently locking for last several weeks got much worse on Sunday night and she came to Ed on Sunday continues with right leg pain from hip to foot never has much mobility of the right knee uses a walker at home no fevers or chills +Right hip delgado 2009 Right ankle fracture with hardware 2007 +ESRD/HD OBJECTIVE: Vital Signs Period Temp Pulse Resp BP Sys/[place]son Pulse Ox Last 24 Hr 98.6 F-99.2 F 86-116 16-16 97-110/54-77 99-100 cor-rrr lungs clear abd soft,nt ext +edema, bilateral venous stasis changes with mild erythema (unchanged per pt ) bilateral right heel ulcer with necrotic edge, no exposed bone, no drainage, no purulence , no cellulitis CBC, BMP 07/23/17 06:30 07/23/17 06:30 ASSESSMENT AND PLAN: suspect this is her bilateral venous stasis with chronic ulcer of the heel no signs cellulitis etiology of pain is unclear consider ortho eval given xray findings
[2017-07-23] MEDS: FUROSEMIDE 40 MG TABLET (FP) PO SCH (10:52)
[2017-07-23] MEDS: ASPIRIN 81 MG CHEWABLE TABLETS PO SCH (10:52)
[2017-07-23] MEDS: PANTOPRAZOLE 20 MG TABLET (FP) PO SCH (10:52)
[2017-07-23] MEDS: LABETALOL HCL 100 MG TABLET (FP) PO SCH ×2 (10:52→21:32)
[2017-07-23] MEDS: CINACALCET HCL 30 MG TAB (FP) PO SCH (10:52)
[2017-07-23] MEDS: MAGNESIUM OXIDE 400 MG TABLET (FP) PO SCH (10:52)
--- NOTE | 2017-07-23 11:21 | HP ---
Admitting History and Physical - Primary Care Physician PCP: Brittni Bolaños - Admission Chief Complaint: pain in left leg History of Present Illness: ER HISTORY - History of Present Illness Initial Comments: 07/22/17 15:06 82F with pmh of ESRD on dialysis (session yesterday) and Osteoarthritis presents with acute exacerbation of disease on right hip, knee and ankle since yesterday evening. She went home after dialysis, had dinner at home then tried to get to bed but couldn't get up. Was found by sister in the morning who called 911 to help her get up. Tried tylenol with no relief. No recent trauma. Denies fever, chills,. Nurse did house call on sunday for wound care of her right heel. But hasn't seen Dr. Sinclair (wound care [facility]ano ) in two weeks. Denies CP, SOB, headache, focal weakness or numbness. Denies falls. Pt seen by me on the floors I had spoken to ER resident yesterday Was not able to get up from bed yesterday morning , c/o severe pain in right hip joint. She usually uses wheelchair when she goes outside and walker in the house. She also has right heel wound - being taken care of by wound care nurse who comes to her home and does dressing changes which also has been debilitating her from walking. In the ER , she was given Vancomycin, Aztreonam and Oxycodone for pain relief. She was given the above antibiotics for possible cellulitis. Today she feels better, pain is much better after taking Oxycodone. No distress History Source: Patient Limitations to Obtaining History: No Limitations - Past Medical History Cardiovascular: Yes: AFIB (paroxysmal), CAD, HTN Renal/: Yes: Renal Failure, Hemodialysis Endocrine: Yes: Diabetes Mellitus - Past Surgical History Past Surgical History: Yes: Joint Replacement (rt hip- 2009, ankle fracture , s/ p plates-- 2005) - Smoking History Smoking history: Never smoked Have you smoked in the past 12 months: No Aproximately how many cigarettes per day: 0 - Alcohol/Substance Use Hx Alcohol Use: No Home Medications - Allergies Allergies/Adverse Reactions: Allergies Allergy/AdvReac Type Severity Reaction Status Date / Time aspirin Allergy Verified 07/22/17 13:34 erythromycin base Allergy Verified 07/22/17 13:34 Penicillins Allergy Verified 07/22/17 13:34 verapamil [Verapamil] Allergy Verified 07/22/17 13:34 - Home Medications Home Medications: Ambulatory Orders Ascorbic Acid [Vitamin C -] 500 mg PO DAILY 07/22/17 Aspirin [ASA -] 81 mg PO DAILY 07/22/17 Cholecalciferol (Vitamin D3) [D-2000] 2,000 unit PO DAILY 07/22/17 Cinacalcet HCl [Sensipar] 30 mg PO ASDIR 07/22/17 Collagenase Clostridium Hist. [Santyl] 90 gm TP DAILY 07/22/17 Fish Oil/Borage/Flax/Om3,6,9#1 [[place] 3-6-9 1,200 mg Softgel] 1,200 mg PO BID Furosemide [Lasix] 80 mg PO DAILY 07/22/17 Insulin Aspart Prot/Insuln Asp [Novolog Mix 70-30 Vial] 6 unit SQ AM 07/22/17 Insulin Aspart Prot/Insuln Asp [Novolog Mix 70-30 Vial] 8 unit SQ HS 07/22/17 Labetalol HCl 300 mg PO BID 07/22/17 Levothyroxine Sodium [Synthroid] 200 mcg PO AM 07/22/17 Magnesium Oxide 400 mg PO DAILY 07/22/17 Mv-Mn/FA/Vit K/Lycop/Lut/Coq10 [Daily Multivitamin Capsule] 1 each PO DAILY Pantoprazole Sodium [Protonix] 20 mg PO DAILY 07/22/17 Sevelamer Carbonate [Renvela] 800 mg PO TID 07/22/17 Vitamin A Palmitate [Vitamin A] 1 tab PO DAILY 07/22/17 Review of Systems - Review of Systems Constitutional: denies: Chills, Fever, Loss of Appetite, Weakness Cardiovascular: denies: Chest Pain Musculoskeletal: reports: Joint Pain Physical Examination Vital Signs: Vital Signs Temperature 99.0 F 07/23/17 06:00 Pulse Rate 109 H 07/23/17 06:00 Respiratory Rate 16 07/23/17 06:00 Blood Pressure 97/54 07/23/17 06:00 O2 Sat by Pulse Oximetry (%) 99 07/22/17 23:49 Constitutional: Yes: No Distress, Calm Cardiovascular: Yes: Regular Rate and Rhythm, Tachycardia Respiratory: Yes: CTA Bilaterally Gastrointestinal: Yes: Normal Bowel Sounds, Abdomen, Obese. No: Distention, Tenderness Extremities: Yes: Erythema (B/L legs), Other (rt foot dressing in place) Edema: Yes Edema: LLE: Trace, RLE: Trace Labs: CBC, BMP 07/23/17 06:30 07/23/17 06:30 Imaging - Results Chest X-ray: Image Reviewed Cat Scan: Report Reviewed EKG: Image Reviewed Problem List - Problems (1) Hip pain, right Code(s): M25.551 - PAIN IN RIGHT HIP (2) CAD (coronary artery disease) Code(s): I25.10 - ATHSCL HEART DISEASE OF [place] CORONARY ARTERY W/O ANG PCTRS (3) Diabetes 1.5, managed as type 1 Code(s): E10.9 - TYPE 1 DIABETES MELLITUS WITHOUT COMPLICATIONS (4) Diabetic foot ulcer Code(s): E11.621 - TYPE 2 DIABETES MELLITUS WITH FOOT ULCER; L97.509 - NON- PRESSURE CHRONIC ULCER OTH PRT UNSP FOOT W UNSP SEVERITY (5) ESRD (end stage renal disease) on dialysis Code(s): N18.6 - END STAGE RENAL DISEASE; Z99.2 - DEPENDENCE ON RENAL DIALYSIS (6) Hypertension Code(s): I10 - ESSENTIAL (PRIMARY) HYPERTENSION (7) Hypothyroidism Code(s): E03.9 - HYPOTHYROIDISM, UNSPECIFIED (8) Venous (peripheral) insufficiency Code(s): I87.2 - VENOUS INSUFFICIENCY (CHRONIC) (PERIPHERAL) Assessment/Plan PLAN intractable hip pain -- due to severe osteoarthritis, avascular necrosis per CT report -- had hip replacement in 2009- Dr Marquez -- better with Oxycodone ESRD onHD -- hyperkalemia noted -- spoke with Renal -- HD - [facility]- Sat -- not in volume overload Chronic venous insufficiency -- not cellulitis -- ID eval noted -- no antibiotics for now Diabetic foot ulcer -- wound care eval -- continue with current wound treatment CAD/Paroxysmal AFib -- no AC due to h/o GI bleeding and pt had refused in the past -- continue with ASA 81 mg daily -- increase Labetalol 400 mg BID as heart rate elevated -- check TSH , Free T4 DVT prophylaxis-- Heparin sc Time spent for assessment, plan, coordination of care , documentation- 35 min
--- NOTE | 2017-07-23 12:05 | CON.NEP ---
Consult Consult Specialty:: Nephrology Referred by:: Dr. Brittni Bolaños Reason for Consultation:: ESRD on HD - History of Present Illness Chief Complaint: LE pain and weakness History of Present Illness: This is a 82 year old woman with PMhx of ESRD no HD x 7 years, hypertension, DM who presented with Right LE pain and weakness with some chronic swelling of the LE and admitted for degenerative changes of the right hip. Pt is awake and alert and offers no acute complaints. No sob, chest pain, abd pain, N/V/D. Last dialysis was sunday w/o complication. Pt had R > L LE weakness and pain that limited her mobility. Pt makes a small amount of urine daily. - History Source History Provided By: Patient Limitations to Obtaining History: No Limitations - Past Medical History Cardio/Vascular: Yes: CAD, HTN Renal/: Yes: Renal Failure, Hemodialysis Endocrine: Yes: Diabetes Mellitus - Alcohol/Substance Use Hx Alcohol Use: No - Smoking History Smoking history: Never smoked Have you smoked in the past 12 months: No Aproximately how many cigarettes per day: 0 Home Medications - Allergies Allergies/Adverse Reactions: Allergies Allergy/AdvReac Type Severity Reaction Status Date / Time aspirin Allergy Verified 07/22/17 13:34 erythromycin base Allergy Verified 07/22/17 13:34 Penicillins Allergy Verified 07/22/17 13:34 verapamil [Verapamil] Allergy Verified 07/22/17 13:34 - Home Medications Home Medications: Ambulatory Orders Ascorbic Acid [Vitamin C -] 500 mg PO DAILY 07/22/17 Aspirin [ASA -] 81 mg PO DAILY 07/22/17 Cholecalciferol (Vitamin D3) [D-2000] 2,000 unit PO DAILY 07/22/17 Cinacalcet HCl [Sensipar] 30 mg PO ASDIR 07/22/17 Collagenase Clostridium Hist. [Santyl] 90 gm TP DAILY 07/22/17 Fish Oil/Borage/Flax/Om3,6,9#1 [[place] 3-6-9 1,200 mg Softgel] 1,200 mg PO BID Furosemide [Lasix] 80 mg PO DAILY 07/22/17 Insulin Aspart Prot/Insuln Asp [Novolog Mix 70-30 Vial] 6 unit SQ AM 07/22/17 Insulin Aspart Prot/Insuln Asp [Novolog Mix 70-30 Vial] 8 unit SQ HS 07/22/17 Labetalol HCl 300 mg PO BID 07/22/17 Levothyroxine Sodium [Synthroid] 200 mcg PO AM 07/22/17 Magnesium Oxide 400 mg PO DAILY 07/22/17 Mv-Mn/FA/Vit K/Lycop/Lut/Coq10 [Daily Multivitamin Capsule] 1 each PO DAILY Pantoprazole Sodium [Protonix] 20 mg PO DAILY 07/22/17 Sevelamer Carbonate [Renvela] 800 mg PO TID 07/22/17 Vitamin A Palmitate [Vitamin A] 1 tab PO DAILY 07/22/17 Family Disease History - Family Disease History Family History: Unremarkable Review of Systems - Review of Systems Constitutional: reports: No Symptoms Eyes: reports: No Symptoms HENT: reports: No Symptoms Neck: reports: No Symptoms Cardiovascular: reports: No Symptoms Respiratory: reports: No Symptoms Gastrointestinal: reports: No Symptoms Genitourinary: reports: No Symptoms Musculoskeletal: reports: Joint Pain Neurological: reports: Weakness Nephrology Consult - Height Height: 5 ft 11 in - Weight Weight: 77.111 kg - BMI Body Mass Index (BMI): 23.7 - Lab Results CBC,BMP: CBC, BMP 07/23/17 06:30 07/23/17 06:30 Anion Gap: Anion Gap Anion Gap 6 (8-16) L 07/23/17 06:30 - Imaging Chest X-ray: Report Reviewed X-ray: Report Reviewed Cat Scan: Report Reviewed - Physical Examination Vital Signs: Vital Signs Temperature 98.3 F 07/23/17 10:50 Pulse Rate 102 H 07/23/17 10:50 Respiratory Rate 18 07/23/17 10:50 Blood Pressure 113/61 07/23/17 10:50 O2 Sat by Pulse Oximetry (%) 99 07/22/17 23:49 Constitutional: Yes: Well Nourished, No Distress Eyes: Yes: Conjunctiva Clear HENT: Yes: Atraumatic Neck: Yes: Supple Cardiovascular: Yes: Regular Rate and Rhythm Respiratory: Yes: Regular, CTA Bilaterally Gastrointestinal: Yes: Normal Bowel Sounds, Soft, Abdomen, Obese. No: Tenderness Renal/: No: Anuria, Bladder Distention, CVA Tenderness - Left, CVA Tenderness - Right, [place] Present Access for Hemodialysis: AV Fistula Extremities: No: Cold, Cool, Cyanosis Edema: Yes Edema: LLE: 1+, RLE: 1+ Neurological: Yes: Alert, Oriented Assessment/Plan 82 year old woman with PMhx of ESRD no HD x 7 years, hypertension, DM who presented with Right LE pain and weakness with some chronic swelling of the LE and admitted for degenerative changes of the right hip. #Avascular Necorosis/Degenerative changes of the right hip with weakness and and LE pain Seen by ID, no signs of inflammation/cellulitis CT and X-ray findings of the hip noted ORtho ecal pending pain controlling #ESRD on HD s/p Hd last sunday No acute indication for [employer] today will give kayexalate 15g once today Low K diet Fluid restriction of 1.2 L dialy for dialysis tomorrow #Hypertension Continue Labetalol Goal BP < 140/90 #Renal Osteodystrophy Corrected Ca is WNL CHeck PTH, Phos continue Sensipar Thank you Will follow Kenny Yeboah DO
[2017-07-23] MEDS ORDERED: SODIUM POLYSTYRENE SULFONATE 15 GM/60 ML BOTTLE PO ONE (12:11)
[2017-07-23] MEDS ORDERED: POLYETHYLENE GLYCOL 3350 119 GM BTL PO PRN (13:46)
--- NOTE | 2017-07-23 17:07 | CONSULT ---
Consult - text type - Consultation Consultation Note: FULL CONSULT DICTATED IMP: AVN RIGHT HIP WITH PREVIOUS GAMMA NAIL PLAN: ---> OR ON SUNDAY FOR REMOVAL OF GAMMA NAIL AND CONVERSION TO HIP REPLACEMENT
--- NOTE | 2017-07-23 19:06 | CONS ---
ORTHOPEDIC CONSULTATION DATE OF CONSULTATION: 07/23/2017 HISTORY OF PRESENT ILLNESS: Patient is an 82-year-old female 5-6 years status post right Gamma nail for an intertrochanteric hip fracture. Patient has had increasing pain in her right hip until the point now that she cannot walk at all. She does have a chronic ulcer on the posterior heel of her right leg and has been going to the wound clinic for it. She is a renal dialysis patient. PHYSICAL EXAMINATION: She has pain with any range of motion of her right hip. She does have calf that is soft, nontender. Full range of motion of the knee, ankle, and toes but marked pain with range of motion on the right hip and with some swelling of the thigh. She has a quarter-size ulcer on the posterior aspect of her heel. No erythema or drainage. X-rays show avascular necrosis of her right hip with a Gamma nail placement. The screw is beginning to articulate with the acetabulum. IMPRESSION: Avascular necrosis, right hip with previous Gamma nail. Risks, benefits, and alternatives discussed with the patient in great detail. Patient needs removal of the right Gamma nail and either total hip versus hemiarthroplasty of the right hip. This will be performed on Sunday. She will be optimized until that time. Izabel [id number]
[2017-07-23] MEDS ORDERED: ACETAMINOPHEN 325 MG TABLET (FP) PO ONE (19:46)
[2017-07-23] MEDS: HEPARIN NA (PORCINE) 5,000 UNITS/ML 1ML VIAL SQ SCH (21:31)
[2017-07-24] MEDS ORDERED: HEPARIN NA (PORCINE) 5,000 UNITS/ML 1ML VIAL IVPUSH ONE (06:00)
[2017-07-24] MEDS: INSULIN (NOVOLOG MIX 70/30) 100 UNITS/ML MDV SQ SCH ×2 (06:10→21:24)
[2017-07-24] MEDS: LEVOTHYROXINE NA 100 MCG TABLET (FP) PO SCH (06:11)
[2017-07-24] MEDS: INSULIN SLIDING SCALE (NOVOLOG) 1 VIAL SQ SCH ×2 (06:11→17:34)
[2017-07-24 08:35] LABS: FREE T4 0.82 ng/dl (0.76-1.46); THYROID STIMULATING HORMONE 14.7 uIU/ml (0.358-3.74)
[2017-07-24 11:09] LABS: MCH 35.4 pg (25.7-33.7); MCHC 33.4 g/dl (32.0-36.0); MEAN PLT VOLUME 9.2 fl (7.5-11.1); PLATELET COUNT 116 K/MM3 (134-434); RDW 16.2 % (11.6-15.6); WHITE BLOOD COUNT 6.7 K/mm3 (4.0-10.0)
--- NOTE | 2017-07-24 11:28 | PN ---
Progress Note, Physician Chief Complaint: had elevated temp yesterday pt examined in HD unit-- she has pain in rt hip Vascular evaluated pt yesterday, dressing changed - Current Medication List Current Medications: Active Medications Acetaminophen (Tylenol -) 325 mg PO Q4H PRN PRN Reason: PAIN Last Admin: 07/22/17 23:32 Dose: 325 mg Aspirin (Asa -) 81 mg PO DAILY [facility] Last Admin: 07/23/17 10:52 Dose: 81 mg Cinacalcet (Sensipar -) 30 mg PO MoWeFr@1000 [facility] Last Admin: 07/23/17 10:52 Dose: 30 mg Collagenase (Santyl -) 1 applic TP DAILY [facility] Last Admin: 07/23/17 10:00 Dose: 1 applic Furosemide (Lasix -) 80 mg PO DAILY [facility] Last Admin: 07/23/17 10:52 Dose: 80 mg Heparin Sodium (Porcine) (Heparin -) 5,000 unit SQ BID [facility] Last Admin: 07/23/17 21:31 Dose: 5,000 unit Insulin Aspart (Novolog Mix 70/30 Vial) 6 units SQ AM [facility] Last Admin: 07/24/17 06:10 Dose: Not Given Insulin Aspart (Novolog Mix 70/30 Vial) 8 units SQ HS [facility] Last Admin: 07/23/17 21:33 Dose: 8 units Insulin Aspart (Novolog Vial Sliding Scale -) 1 vial SQ BIDAC [facility] PRN Reason: Protocol Last Admin: 07/24/17 06:11 Dose: Not Given Labetalol HCl (Normodyne -) 400 mg PO BID [facility] Last Admin: 07/23/17 21:32 Dose: 400 mg Levothyroxine Sodium (Synthroid -) 200 mcg PO AM [facility] Last Admin: 07/24/17 06:11 Dose: 200 mcg Magnesium Oxide (Mag-Ox -) 400 mg PO DAILY [facility] Last Admin: 07/23/17 10:52 Dose: 400 mg Oxycodone HCl (Roxicodone -) 5 mg PO Q4H PRN PRN Reason: PAIN LEVEL 6-10 Last Admin: 07/22/17 23:32 Dose: 5 mg Pantoprazole Sodium (Protonix -) 20 mg PO DAILY [facility] Last Admin: 07/23/17 10:52 Dose: 20 mg Polyethylene Glycol (Miralax (For Daily Use) -) 17 gm PO DAILY PRN PRN Reason: CONSTIPATION Sevelamer Carbonate (Renvela -) 800 mg PO TIDCM [facility] Last Admin: 07/23/17 17:29 Dose: 800 mg - Objective Vital Signs: Vital Signs Temperature 98.5 F 07/24/17 06:00 Pulse Rate 112 H 07/24/17 06:00 Respiratory Rate 18 07/24/17 06:00 Blood Pressure 111/62 07/24/17 06:00 O2 Sat by Pulse Oximetry (%) 100 07/23/17 21:00 Constitutional: Yes: No Distress, Calm Cardiovascular: Yes: Regular Rate and Rhythm, Murmur Respiratory: Yes: Diminished Gastrointestinal: Yes: Normal Bowel Sounds, Soft. No: Distention, Tenderness Extremities: Yes: Other (dressing in right leg) Edema: Yes Edema: LLE: 1+, RLE: 1+ Labs: CBC, BMP 07/24/17 09:40 Problem List - Problems (1) Hip pain, right Code(s): M25.551 - PAIN IN RIGHT HIP (2) CAD (coronary artery disease) Code(s): I25.10 - ATHSCL HEART DISEASE OF [place] CORONARY ARTERY W/O ANG PCTRS (3) Diabetes 1.5, managed as type 1 Code(s): E10.9 - TYPE 1 DIABETES MELLITUS WITHOUT COMPLICATIONS (4) Diabetic foot ulcer Code(s): E11.621 - TYPE 2 DIABETES MELLITUS WITH FOOT ULCER; L97.509 - NON- PRESSURE CHRONIC ULCER OTH PRT UNSP FOOT W UNSP SEVERITY (5) ESRD (end stage renal disease) on dialysis Code(s): N18.6 - END STAGE RENAL DISEASE; Z99.2 - DEPENDENCE ON RENAL DIALYSIS (6) Hypertension Code(s): I10 - ESSENTIAL (PRIMARY) HYPERTENSION (7) Hypothyroidism Code(s): E03.9 - HYPOTHYROIDISM, UNSPECIFIED (8) Venous (peripheral) insufficiency Code(s): I87.2 - VENOUS INSUFFICIENCY (CHRONIC) (PERIPHERAL) (9) Fever Code(s): R50.9 - FEVER, UNSPECIFIED Assessment/Plan PLAN intractable hip pain -- due to severe osteoarthritis, avascular necrosis per CT report -- had hip replacement in 2009- Dr Marquez -- better with Oxycodone -- Ortho eval noted- for ORIF on Sunday Fever -- unknown cause --legs do not look erythematous -- heel wound not infected -- pt c/o on and off sore throat-- no pharyngeal congestion on exam - no cervical LNE - ID follow up -- blood cultures drawn ESRD onHD -- HD - Sun -- not in volume overload Chronic venous insufficiency -- not cellulitis Diabetic foot ulcer -- wound care eval -- continue with current wound treatment CAD/Paroxysmal AFib -- no AC due to h/o GI bleeding and pt had refused in the past -- continue with ASA 81 mg daily -- heart rate better on Labetalol 400 mg BID -- increase Synthroid DVT prophylaxis-- Heparin sc
[2017-07-24 11:32] LABS: ANION GAP 11 (8-16); CALCIUM 7.5 mg/dL (8.5-10.1); CO2 25 mmol/L (21-32); CREATININE 6.1 mg/dL (0.55-1.02); GLUCOSE,RANDOM 88 mg/dL (74-106); PHOSPHOROUS 3.1 mg/dL (2.5-4.9)
[2017-07-24] MEDS: LABETALOL HCL 100 MG TABLET (FP) PO SCH ×2 (11:57→21:23)
[2017-07-24] MEDS: MAGNESIUM OXIDE 400 MG TABLET (FP) PO SCH (11:57)
[2017-07-24] MEDS: ASPIRIN 81 MG CHEWABLE TABLETS PO SCH (11:57)
[2017-07-24] MEDS: HEPARIN NA (PORCINE) 5,000 UNITS/ML 1ML VIAL SQ SCH ×2 (11:57→21:22)
[2017-07-24] MEDS: PANTOPRAZOLE 20 MG TABLET (FP) PO SCH (11:57)
[2017-07-24] MEDS: FUROSEMIDE 40 MG TABLET (FP) PO SCH (11:57)
[2017-07-24] MEDS: SEVELAMER CARBONATE 800 MG TAB (FP) PO SCH ×3 (11:58→17:34)
[2017-07-24] MEDS ORDERED: LEVOTHYROXINE NA 100 MCG TABLET (FP) PO SCH (13:01)
--- NOTE | 2017-07-24 13:54 | PN ---
Progress Note (short form) - Note Progress Note: Renal follow up for ESRD on Hd Pt seen and examined during dialysis awake and alert feels cold BP stable Goal UF Is 2.5L access with good flow + isolated fever yesterday evening Vital Signs Temperature 98.8 F 07/24/17 09:45 Pulse Rate 110 H 07/24/17 13:28 Respiratory Rate 18 07/24/17 13:28 Blood Pressure 154/82 07/24/17 13:28 O2 Sat by Pulse Oximetry (%) 100 07/23/17 21:00 Intake & Output 07/21/17 07/22/17 07/23/17 07/24/17 23:59 23:59 23:59 23:59 Intake Total 550 800 120 Balance 550 800 120 Weight 77.111 kg 77.111 kg 89.176 kg NAD awake and alert tachycardic CTA 1+ LE edema CBC, BMP 07/24/17 09:40 07/24/17 09:40 Laboratory Tests 03/03/17 07/24/17 07:30 09:40 MCV 101.3 H Calcium 7.5 L Phosphorus 3.1 Current Medications Acetaminophen (Tylenol -) 325 mg PO Q4H PRN PRN Reason: PAIN Last Admin: 07/22/17 23:32 Dose: 325 mg Aspirin (Asa -) 81 mg PO DAILY [facility] Last Admin: 07/24/17 11:57 Dose: Not Given Cinacalcet (Sensipar -) 30 mg PO MoWeFr@1000 [facility] Last Admin: 07/23/17 10:52 Dose: 30 mg Collagenase (Santyl -) 1 applic TP DAILY [facility] Last Admin: 07/23/17 10:00 Dose: 1 applic Furosemide (Lasix -) 80 mg PO DAILY [facility] Last Admin: 07/24/17 11:57 Dose: Not Given Heparin Sodium (Porcine) (Heparin -) 5,000 unit SQ BID [facility] Last Admin: 07/24/17 11:57 Dose: Not Given Insulin Aspart (Novolog Mix 70/30 Vial) 6 units SQ AM [facility] Last Admin: 07/24/17 06:10 Dose: Not Given Insulin Aspart (Novolog Mix 70/30 Vial) 8 units SQ HS [facility] Last Admin: 07/23/17 21:33 Dose: 8 units Insulin Aspart ([facility]olog Vial Sliding Scale -) [facility] Reason: Protocol Last Admin: 07/24/17 06:11 Dose: Not Given Labetalol HCl (Normodyne -) 400 mg PO BID [facility] Last Admin: 07/24/17 11:57 Dose: Not Given Levothyroxine Sodium 200 mcg/ (Levothyroxine Sodium 25 mcg) 225 mcg PO DAILY@ 0700 [facility] Magnesium Oxide (Mag-Ox -) 400 mg PO DAILY [facility] Last Admin: 07/24/17 11:57 Dose: Not Given Oxycodone HCl (Roxicodone -) 5 mg PO Q4H PRN PRN Reason: PAIN LEVEL 6-10 Last Admin: 07/22/17 23:32 Dose: 5 mg Pantoprazole Sodium (Protonix -) 20 mg PO DAILY [facility] Last Admin: 07/24/17 11:57 Dose: Not Given Polyethylene Glycol (Miralax (For Daily Use) -) 17 gm PO DAILY PRN PRN Reason: CONSTIPATION Sevelamer Carbonate (Renvela -) 800 mg PO TIDCM [facility] Last Admin: 07/24/17 11:58 Dose: Not Given 82 year old woman with PMhx of ESRD no HD x 7 years, hypertension, DM who presented with Right LE pain and weakness with some chronic swelling of the LE and admitted for degenerative changes of the right hip. #Avascular Necorosis/Degenerative changes of the right hip with weakness and and LE pain for joint replacement by ortho #ESRD on HD tolerating dialysis well today will maintain on 3x weekly HD while inpatient #Hypertension Continue Labetalol Goal BP < 140/90 #Renal Osteodystrophy Corrected Ca is WNL Phos at goal PTH pending continue Sensipar Thank you Will follow Kenny Yeboah DO
--- NOTE | 2017-07-24 14:37 | PN ---
Progress Note (short form) - Note Progress Note: Ortho Pt seen and examined right hip avn s/p gamma nail Selected Entries 07/24/17 07/24/17 07/24/17 09:45 13:05 13:28 Temperature 98.8 F Pulse Rate 104 H 110 H Respiratory 18 18 Rate Blood Pressure 112/68 154/82 Laboratory Tests 07/24/17 09:40 WBC 6.7 Hgb 10.4 L Hct 31.1 L Plt Count 116 L +ttp, dec rom with IR and ER, calf soft, nt nvi a/p OR for removal of hardware and soniya/THR tentatively scheduled for Sunday surgical clearance will follow d/w Dr. Tinoco
--- NOTE | 2017-07-24 14:39 | PN ---
Physical Exam: SUBJECTIVE: Patient seen and examined. Patient reports mild subjective fever and chills last night. She denies chest pain, SOB, abdominal pain, n/v/d, and dysuria. Her right hip remains just as painful as the day before. She endorses constipation and gas. OBJECTIVE: Vital Signs Period Temp Pulse Resp BP Sys/Willson Pulse Ox Last 24 Hr 98.5 F-101.3 F 90-116 17-18 92-154/49-82 100 GENERAL: The patient is awake, alert, and fully oriented, in no acute distress. HEAD: Normal with no signs of trauma. EYES: PERRL, extraocular movements intact, sclera anicteric, conjunctiva clear. No ptosis. ENT: Ears normal, nares patent, oropharynx clear without exudates, moist mucous membranes. NECK: Trachea midline, full range of motion, supple. LUNGS: Breath sounds equal, clear to auscultation bilaterally, no wheezes, no crackles, no accessory muscle use. HEART: Regular rate and rhythm, S1, S2 without murmur, rub or gallop. ABDOMEN: Soft, nontender, nondistended, normoactive bowel sounds, no guarding, no rebound, no hepatosplenomegaly, no masses. EXTREMITIES: RLE has decreased erythema compared to yesterday. NEUROLOGICAL: Cranial nerves II through XII grossly intact. Normal speech, gait not observed. PSYCH: Normal mood, normal affect. Laboratory Results - last 24 hr 07/23/17 07/23/17 07/24/17 16:50 21:31 06:09 WBC RBC Hgb Hct MCV MCH MCHC RDW Plt Count MPV Sodium Potassium Chloride Carbon Dioxide Anion Gap BUN Creatinine POC Glucometer 110 188 78 Random Glucose Calcium Phosphorus TSH Free T4 07/24/17 07/24/17 07/24/17 07:15 09:40 09:40 WBC 6.7 RBC 2.93 L Hgb 10.4 L Hct 31.1 L MCV 106.0 H MCH 35.4 H MCHC 33.4 RDW 16.2 H Plt Count 116 L MPV 9.2 Sodium 134 L Potassium 5.3 H Chloride 98 Carbon Dioxide 25 Anion Gap 11 BUN 56 H D Creatinine 6.1 H D POC Glucometer Random Glucose 88 D Calcium 7.5 L Phosphorus 3.1 TSH 14.70 H Free T4 0.82 Active Medications Generic Name Dose Route Start Last Admin Trade Name Kian PRN Reason Stop Dose Admin Acetaminophen 325 mg 07/22/17 20:26 07/22/17 23:32 Tylenol - PO 325 mg Q4H PRN Administration PAIN Aspirin 81 mg 07/23/17 10:00 07/24/17 11:57 Asa - PO Not Given DAILY [facility] Cinacalcet 30 mg 07/23/17 10:00 07/23/17 10:52 Sensipar - PO 30 mg MoWeFr@1000 [facility] Administration Collagenase 1 applic 07/22/17 21:30 07/23/17 10:00 Santyl - TP 1 applic DAILY [facility] Administration Furosemide 80 mg 07/23/17 10:00 07/24/17 11:57 Lasix - PO Not Given DAILY [facility] Heparin Sodium (Porcine) 5,000 unit 07/23/17 22:00 07/24/17 11:57 Heparin - SQ Not Given BID [facility] Insulin Aspart 6 units 07/23/17 07:00 07/24/17 06:10 Novolog Mix 70/30 Vial SQ Not Given AM [facility] Insulin Aspart 8 units 07/22/17 22:00 07/23/17 21:33 Novolog Mix 70/30 Vial SQ 8 units HS [facility] Administration Insulin Aspart 1 vial 07/23/17 07:00 07/24/17 06:11 Novolog Vial Sliding Scale - SQ Not Given BIDAC [facility] Protocol Labetalol HCl 400 mg 07/23/17 11:45 07/24/17 11:57 Normodyne - PO Not Given BID [facility] Levothyroxine Sodium 200 mcg/ 225 mcg 07/25/17 07:00 Levothyroxine Sodium 25 mcg PO DAILY@0700 [facility] Magnesium Oxide 400 mg 07/23/17 10:00 07/24/17 11:57 Mag-Ox - PO Not Given DAILY [facility] Oxycodone HCl 5 mg 07/22/17 20:25 07/22/17 23:32 Roxicodone - PO 5 mg Q4H PRN Administration PAIN LEVEL 6-10 Pantoprazole Sodium 20 mg 07/23/17 10:00 07/24/17 11:57 Protonix - PO Not Given DAILY [facility] Polyethylene Glycol 17 gm 07/23/17 13:46 Miralax (For Daily Use) - PO DAILY PRN CONSTIPATION Sevelamer Carbonate 800 mg 07/22/17 22:00 07/24/17 12:00 Renvela - PO Not Given TIDCM [facility] ASSESSMENT/PLAN: 82F w/ hx of DM, OA, ESRD on HD, and recent RLE cellulitis in 02/2017 presenting with right hip, knee, and ankle pain for 2 days. #Right leg pain -likely 2/2 worsening of OA vs. ortho changes as evident by XR. Ortho to perform surgery on sunday. #RLE erythema -likely 2/2 chronic venous stasis, unlikely to be cellulitis -one isolated fever yesterday, given tylenol -no leukocytosis, no further fevers -would await results of blood cultures before starting abx #R heel ulcer -non draining, healing -management per vascular #rest of medical problems per hospitalist team Plan discussed with attending, Dr. Durand. Dispo: We will continue to follow the patient. Thank you for this consultative opportunity. -Eliot Sheth MD PGY1 Visit type - Emergency Visit Emergency Visit: Yes ED Registration Date: 07/22/17 Care time: The patient presented to the Emergency Department on the above date and was hospitalized for further evaluation of their emergent condition. - New Patient This patient is new to me today: No - Critical Care Critical Care patient: No
--- NOTE | 2017-07-24 14:53 | PN ---
Teaching Attending Note Name of Resident: Eliot Sheth ATTENDING PHYSICIAN STATEMENT I saw and evaluated the patient. I reviewed the resident's note and discussed the case with the resident. I agree with the resident's findings and plan as documented. SUBJECTIVE: fever to 101 last pm, s/p hd today c/o constipation and hip pain cultures sent last night OBJECTIVE: Vital Signs Period Temp Pulse Resp BP Sys/Willson Pulse Ox Last 24 Hr 98.5 F-101.3 F 90-114 17-18 104-154/58-82 100 cor-rrr lungs clear abd soft,nt ext venous stasis changes, no erythema noted CBC, BMP 07/24/17 09:40 07/24/17 09:40 ASSESSMENT AND PLAN: fever- f/u cultures continue off antibiotics for hip revision surgery on Sunday
[2017-07-24] MEDS: COLLAGENASE CLOSTRIDIUM HIST. 30 GRAMS TUBE TP SCH (17:35)
[2017-07-24] MEDS ORDERED: ACETAMINOPHEN 325 MG TABLET (FP) PO ONE (21:51)
[2017-07-25] MEDS ORDERED: LEVOTHYROXINE NA 100 MCG TABLET (FP) ONE (06:11)
[2017-07-25] MEDS ORDERED: LEVOTHYROXINE NA 25 MCG TABLET (FP) ONE (06:12)
[2017-07-25] MEDS: INSULIN SLIDING SCALE (NOVOLOG) 1 VIAL SQ SCH ×2 (06:25→17:11)
[2017-07-25] MEDS: LEVOTHYROXINE 200 MCG, LEVOTHYROXINE 25 MCG PO SCH (06:25)
[2017-07-25] MEDS: INSULIN (NOVOLOG MIX 70/30) 100 UNITS/ML MDV SQ SCH ×2 (06:26→22:39)
[2017-07-25 08:33] LABS: BASOPHIL 0.8 % (0-2.0); EOSINOPHIL 2.6 % (0-4.5); MCH 35.3 pg (25.7-33.7); MCHC 33.1 g/dl (32.0-36.0); MEAN CELL VOLUME 106.8 fl (80-96); MEAN PLT VOLUME 8.4 fl (7.5-11.1); NEUTROPHILS 74.3 % (42.8-82.8); PLATELET COUNT 129 K/MM3 (134-434); RDW 16.5 % (11.6-15.6); WHITE BLOOD COUNT 5.6 K/mm3 (4.0-10.0)
[2017-07-25] MEDS: SEVELAMER CARBONATE 800 MG TAB (FP) PO SCH ×3 (08:58→17:33)
[2017-07-25 09:05] LABS: ANION GAP 7 (8-16); CALCIUM 7.7 mg/dL (8.5-10.1); CO2 29 mmol/L (21-32); GLUCOSE,RANDOM 73 mg/dL (74-106)
[2017-07-25 09:06] LABS: CREATININE 4.6 mg/dL (0.55-1.02)
[2017-07-25] MEDS: MAGNESIUM OXIDE 400 MG TABLET (FP) PO SCH (09:08)
[2017-07-25] MEDS: PANTOPRAZOLE 20 MG TABLET (FP) PO SCH (09:08)
[2017-07-25] MEDS: HEPARIN NA (PORCINE) 5,000 UNITS/ML 1ML VIAL SQ SCH ×2 (09:08→22:34)
[2017-07-25] MEDS: FUROSEMIDE 40 MG TABLET (FP) PO SCH (09:08)
[2017-07-25] MEDS: ASPIRIN 81 MG CHEWABLE TABLETS PO SCH (09:08)
[2017-07-25] MEDS: CINACALCET HCL 30 MG TAB (FP) PO SCH (09:08)
[2017-07-25] MEDS: LABETALOL HCL 100 MG TABLET (FP) PO SCH ×2 (09:08→22:37)
--- NOTE | 2017-07-25 10:32 | PN ---
Progress Note (short form) - Note Progress Note: patient scheduled for OR on Sunday
--- NOTE | 2017-07-25 11:12 | PN ---
Progress Note, Physician Chief Complaint: afebrile No complaints feels well - Current Medication List Current Medications: Active Medications Acetaminophen (Tylenol -) 325 mg PO Q4H PRN PRN Reason: PAIN Last Admin: 07/22/17 23:32 Dose: 325 mg Cinacalcet (Sensipar -) 30 mg PO MoWeFr@1000 [facility] Last Admin: 07/25/17 09:08 Dose: 30 mg Collagenase (Santyl -) 1 applic TP DAILY [facility] Last Admin: 07/24/17 17:35 Dose: Not Given Furosemide (Lasix -) 80 mg PO DAILY [facility] Last Admin: 07/25/17 09:08 Dose: 80 mg Heparin Sodium (Porcine) (Heparin -) 5,000 unit SQ BID [facility] Last Admin: 07/25/17 09:08 Dose: 5,000 unit Insulin Aspart (Novolog Mix 70/30 Vial) 6 units SQ AM [facility] Last Admin: 07/25/17 06:26 Dose: Not Given Insulin Aspart (Novolog Mix 70/30 Vial) 8 units SQ HS [facility] Last Admin: 07/24/17 21:24 Dose: 8 units Insulin Aspart (Novolog Vial Sliding Scale -) 1 vial SQ BIDAC [facility] PRN Reason: Protocol Last Admin: 07/25/17 06:25 Dose: Not Given Labetalol HCl (Normodyne -) 400 mg PO BID [facility] Last Admin: 07/25/17 09:08 Dose: 400 mg Levothyroxine Sodium 200 mcg/ (Levothyroxine Sodium 25 mcg) 225 mcg PO DAILY@ 0700 [facility] Last Admin: 07/25/17 06:25 Dose: 225 mcg Magnesium Oxide (Mag-Ox -) 400 mg PO DAILY [facility] Last Admin: 07/25/17 09:08 Dose: 400 mg Oxycodone HCl (Roxicodone -) 5 mg PO Q4H PRN PRN Reason: PAIN LEVEL 6-10 Last Admin: 07/22/17 23:32 Dose: 5 mg Pantoprazole Sodium (Protonix -) 20 mg PO DAILY [facility] Last Admin: 07/25/17 09:08 Dose: 20 mg Polyethylene Glycol (Miralax (For Daily Use) -) 17 gm PO DAILY PRN PRN Reason: CONSTIPATION Sevelamer Carbonate (Renvela -) 800 mg PO TIDCM [facility] Last Admin: 07/25/17 08:58 Dose: 800 mg - Objective Vital Signs: Vital Signs Temperature 98.0 F 07/25/17 09:14 Pulse Rate 95 H 07/25/17 09:14 Respiratory Rate 18 07/25/17 09:14 Blood Pressure 115/66 07/25/17 09:14 O2 Sat by Pulse Oximetry (%) 100 07/24/17 20:38 Constitutional: Yes: No Distress Cardiovascular: Yes: Regular Rate and Rhythm, Murmur Respiratory: Yes: Diminished Gastrointestinal: Yes: Normal Bowel Sounds, Soft. No: Distention, Tenderness Extremities: Yes: Other (rt foot dressing in place) Edema: Yes Edema: LLE: 2+, RLE: 2+ Psychiatric: Yes: Alert, Oriented Labs: CBC, BMP 07/25/17 08:28 07/25/17 08:28 Problem List - Problems (1) Hip pain, right Code(s): M25.551 - PAIN IN RIGHT HIP (2) CAD (coronary artery disease) Code(s): I25.10 - ATHSCL HEART DISEASE OF [place] CORONARY ARTERY W/O ANG PCTRS (3) Diabetes 1.5, managed as type 1 Code(s): E10.9 - TYPE 1 DIABETES MELLITUS WITHOUT COMPLICATIONS (4) Diabetic foot ulcer Code(s): E11.621 - TYPE 2 DIABETES MELLITUS WITH FOOT ULCER; L97.509 - NON- PRESSURE CHRONIC ULCER OTH PRT UNSP FOOT W UNSP SEVERITY (5) ESRD (end stage renal disease) on dialysis Code(s): N18.6 - END STAGE RENAL DISEASE; Z99.2 - DEPENDENCE ON RENAL DIALYSIS (6) Hypertension Code(s): I10 - ESSENTIAL (PRIMARY) HYPERTENSION (7) Hypothyroidism Code(s): E03.9 - HYPOTHYROIDISM, UNSPECIFIED (8) Venous (peripheral) insufficiency Code(s): I87.2 - VENOUS INSUFFICIENCY (CHRONIC) (PERIPHERAL) (9) Fever Code(s): R50.9 - FEVER, UNSPECIFIED Assessment/Plan PLAN intractable hip pain -- due to severe osteoarthritis, avascular necrosis per CT report -- had hip replacement in 2009- Dr Marquez -- better with Oxycodone -- Ortho eval noted- for ORIF on Sunday , dc ASA Fever -- unknown cause --legs do not look erythematous -- heel wound not infected -- pt c/o on and off sore throat-- no pharyngeal congestion on exam - no cervical LNE - ID follow up noted -- blood cultures negative -- pt afebrile -- off antibiotics ESRD onHD -- HD - Sun -- not in volume overload Chronic venous insufficiency -- not cellulitis Diabetic foot ulcer -- wound care eval -- continue with current wound treatment CAD/Paroxysmal AFib -- no AC due to h/o GI bleeding and pt had refused in the past -- stop ASA 81 mg daily as she is going for surgery Sunday -- heart rate better on Labetalol 400 mg BID -- increase Synthroid -- Cardiology eval for clearance DVT prophylaxis-- Heparin sc -- hold AM dose on Sunday prior to surgery
--- NOTE | 2017-07-25 11:45 | CON.CARD ---
Consult Consult Specialty:: Cardiology - History of Present Illness History of Present Illness: 82F w/ hx of DM, OA, ESRD on HD, and recent RLE cellulitis in 02/2017 presenting with right hip, knee, and ankle pain for 2 days. Per patient, she was in her USOH until 2 days ago when she was ready to go to bed, and her right leg began significantly hurting her. She stated that it locked up, and she was unable to move it due to pain. When her daughter came over and saw her, she decided to take her to the hospital. Pt reports a history of intermittent right leg pain which she attributes to her OA which is usually controlled with tylenol , but she reports that this pain was worse than she ever experienced. She endorses a right heel ulcer for which she sees Dr. Sinclair and receives wound care. She denies fevers, chills, numbness, weakness, chest pain, SOB, abdominal pain, n/v/d/c, and dysuria. Of note, pt was admitted for RLE cellulitis and ulcer in 02/2017. Wound cultures grew E. coli and staph coagulase negative. Pt was successfully treated with vancomycin and levaquin. PMH Atrial fibrillation Bare metal stent of ostial LCx April 01, 2015 Dr. Elizabeth CAD - mLAD 30% , oLCx 90%, RPDA 40% March 05, 2015 Dr. Elizabeth Diabetes mellitus, type II 1997 Dialysis 2010 End stage renal disease Hypertension Hypothyroidism Mildly reduced EF 48% February 2016 Moderate mean PG 23 mmHg February 2016 Severe GI bleed 2006 - Past Medical History Cardio/Vascular: Yes: AFIB (paroxysmal), CAD, HTN Renal/: Yes: Renal Failure, Hemodialysis Endocrine: Yes: Diabetes Mellitus - Past Surgical History Past Surgical History: Yes: Joint Replacement (rt hip- 2009, ankle fracture , s/ p plates-- 2005) - Alcohol/Substance Use Hx Alcohol Use: No - Smoking History Smoking history: Never smoked Have you smoked in the past 12 months: No Aproximately how many cigarettes per day: 0 Home Medications - Allergies Allergies/Adverse Reactions: Allergies Allergy/AdvReac Type Severity Reaction Status Date / Time aspirin Allergy Verified 07/22/17 13:34 erythromycin base Allergy Verified 07/22/17 13:34 Penicillins Allergy Verified 07/22/17 13:34 verapamil [Verapamil] Allergy Verified 07/22/17 13:34 - Home Medications Home Medications: Ambulatory Orders Ascorbic Acid [Vitamin C -] 500 mg PO DAILY 07/22/17 Aspirin [ASA -] 81 mg PO DAILY 07/22/17 Cholecalciferol (Vitamin D3) [D-2000] 2,000 unit PO DAILY 07/22/17 Cinacalcet HCl [Sensipar] 30 mg PO ASDIR 07/22/17 Collagenase Clostridium Hist. [Santyl] 90 gm TP DAILY 07/22/17 Fish Oil/Borage/Flax/Om3,6,9#1 [[place] 3-6-9 1,200 mg Softgel] 1,200 mg PO BID Furosemide [Lasix] 80 mg PO DAILY 07/22/17 Insulin Aspart Prot/Insuln Asp [Novolog Mix 70-30 Vial] 6 unit SQ AM 07/22/17 Insulin Aspart Prot/Insuln Asp [Novolog Mix 70-30 Vial] 8 unit SQ HS 07/22/17 Labetalol HCl 300 mg PO BID 07/22/17 Levothyroxine Sodium [Synthroid] 200 mcg PO AM 07/22/17 Magnesium Oxide 400 mg PO DAILY 07/22/17 Mv-Mn/FA/Vit K/Lycop/Lut/Coq10 [Daily Multivitamin Capsule] 1 each PO DAILY Pantoprazole Sodium [Protonix] 20 mg PO DAILY 07/22/17 Sevelamer Carbonate [Renvela] 800 mg PO TID 07/22/17 Vitamin A Palmitate [Vitamin A] 1 tab PO DAILY 07/22/17 Review of Systems - Review of Systems Constitutional: reports: No Symptoms Eyes: reports: No Symptoms HENT: reports: No Symptoms Neck: reports: No Symptoms Cardiovascular: reports: No Symptoms Gastrointestinal: reports: No Symptoms Genitourinary: reports: No Symptoms Breasts: reports: No Symptoms Reported Musculoskeletal: reports: No Symptoms Integumentary: reports: No Symptoms Neurological: reports: No Symptoms Endocrine: reports: No Symptoms Hematology/Lymphatic: reports: No Symptoms Psychiatric: reports: No Symptoms Vital Signs: Vital Signs Temperature 98.0 F 07/25/17 09:14 Pulse Rate 95 H 07/25/17 09:14 Respiratory Rate 18 07/25/17 09:14 Blood Pressure 115/66 07/25/17 09:14 O2 Sat by Pulse Oximetry (%) 100 11/28/17 20:38 Constitutional: Yes: Well Nourished, No Distress, Calm Eyes: Yes: WNL, Conjunctiva Clear, EOM Intact HENT: Yes: WNL, Atraumatic, Normocephalic Neck: Yes: WNL, Supple, Trachea Midline Respiratory: Yes: WNL, Regular, CTA Bilaterally Gastrointestinal: Yes: WNL, Normal Bowel Sounds Renal/: Yes: WNL Cardiovascular: Yes: Pulse Irregular Heart Sounds: Yes: S1, S2 Murmur: Yes: Systolic Murmur Musculoskeletal: Yes: WNL Extremities: Yes: WNL, Erythema Edema: Yes Integumentary: Yes: WNL Neurological: Yes: WNL, Alert, Oriented ...Motor Strength: WNL Psychiatric: Yes: WNL, Alert, Oriented - Other Data Labs, Other Data: CBC, BMP 07/25/17 08:28 07/25/17 08:28 Laboratory Tests 07/22/17 07/22/17 07/22/17 14:43 14:43 14:43 WBC 8.0 D RBC 3.46 L Hgb 12.3 D Hct 37.4 MCV 108.3 H MCH 35.6 H MCHC 32.9 RDW 16.5 H Plt Count 109 L MPV 8.8 Neutrophils % 85.0 H D Lymphocytes % 4.8 L D Monocytes % 9.4 Eosinophils % 0.2 D Basophils % 0.6 Hypochromia 1+ Platelet Comment No clumping noted Anisocytosis 1+ Macrocytosis 1+ Sodium 132 L Potassium 5.5 H D Chloride 98 Carbon Dioxide 26 Anion Gap 8 BUN 33 H D Creatinine 4.3 H D Creat Clearance w eGFR 9.91 POC Glucometer Random Glucose 122 H D Calcium 7.6 L Phosphorus Total Bilirubin 1.4 H D AST 31 D ALT 16 D Alkaline Phosphatase 212 H B-Natriuretic Peptide 28226.24 H Total Protein 7.3 Albumin 2.8 L TSH Free T4 PTH Intact Hepatitis A Ab Total Hep Bs Antigen Hep Bs Antibody Hep B Core Total Ab Hepatitis C Antibody 07/22/17 07/23/17 07/23/17 21:28 06:18 06:30 WBC 8.0 RBC 3.09 L Hgb 11.0 D Hct 33.4 MCV 108.0 H MCH 35.7 H MCHC 33.0 RDW 16.6 H Plt Count 112 L MPV 9.1 Neutrophils % 80.0 Lymphocytes % 8.8 D Monocytes % 10.1 Eosinophils % 0.7 D Basophils % 0.4 Hypochromia Platelet Comment Anisocytosis Macrocytosis Sodium Potassium Chloride Carbon Dioxide Anion Gap BUN Creatinine Creat Clearance w eGFR POC Glucometer 235 74 Random Glucose Calcium Phosphorus Total Bilirubin AST ALT Alkaline Phosphatase B-Natriuretic Peptide Total Protein Albumin TSH Free T4 PTH Intact Hepatitis A Ab Total Hep Bs Antigen Hep Bs Antibody Hep B Core Total Ab Hepatitis C Antibody 07/23/17 07/23/17 07/23/17 06:30 11:10 16:50 WBC RBC Hgb Hct MCV MCH MCHC RDW Plt Count MPV Neutrophils % Lymphocytes % Monocytes % Eosinophils % Basophils % Hypochromia Platelet Comment Anisocytosis Macrocytosis Sodium 133 L Potassium 5.6 H Chloride 99 Carbon Dioxide 28 Anion Gap 6 L BUN 40 H D Creatinine 5.0 H Creat Clearance w eGFR 8.33 POC Glucometer 117 110 Random Glucose 71 L D Calcium 7.7 L Phosphorus Total Bilirubin 1.4 H AST 24 D ALT 14 Alkaline Phosphatase 180 H B-Natriuretic Peptide Total Protein 6.4 Albumin 2.4 L TSH Free T4 PTH Intact Hepatitis A Ab Total Hep Bs Antigen Hep Bs Antibody Hep B Core Total Ab Hepatitis C Antibody 07/23/17 07/24/17 07/24/17 21:31 06:09 07:15 WBC RBC Hgb Hct MCV MCH MCHC RDW Plt Count MPV Neutrophils % Lymphocytes % Monocytes % Eosinophils % Basophils % Hypochromia Platelet Comment Anisocytosis Macrocytosis Sodium Potassium Chloride Carbon Dioxide Anion Gap BUN Creatinine Creat Clearance w eGFR POC Glucometer 188 78 Random Glucose Calcium Phosphorus Total Bilirubin AST ALT Alkaline Phosphatase B-Natriuretic Peptide Total Protein Albumin TSH Free T4 PTH Intact 281 H Hepatitis A Ab Total Hep Bs Antigen Hep Bs Antibody Hep B Core Total Ab Hepatitis C Antibody 07/24/17 07/24/17 07/24/17 07:15 09:40 09:40 WBC 6.7 RBC 2.93 L Hgb 10.4 L Hct 31.1 L MCV 106.0 H MCH 35.4 H MCHC 33.4 RDW 16.2 H Plt Count 116 L MPV 9.2 Neutrophils % Lymphocytes % Monocytes % Eosinophils % Basophils % Hypochromia Platelet Comment Anisocytosis Macrocytosis Sodium 134 L Potassium 5.3 H Chloride 98 Carbon Dioxide 25 Anion Gap 11 BUN 56 H D Creatinine 6.1 H D Creat Clearance w eGFR POC Glucometer Random Glucose 88 D Calcium 7.5 L Phosphorus 3.1 Total Bilirubin AST ALT Alkaline Phosphatase B-Natriuretic Peptide Total Protein Albumin TSH 14.70 H Free T4 0.82 PTH Intact Hepatitis A Ab Total Hep Bs Antigen Hep Bs Antibody Hep B Core Total Ab Hepatitis C Antibody 07/24/17 07/24/17 07/24/17 12:15 17:09 21:21 WBC RBC Hgb Hct MCV MCH MCHC RDW Plt Count MPV Neutrophils % Lymphocytes % Monocytes % Eosinophils % Basophils % Hypochromia Platelet Comment Anisocytosis Macrocytosis Sodium Potassium Chloride Carbon Dioxide Anion Gap BUN Creatinine Creat Clearance w eGFR POC Glucometer 203 152 Random Glucose Calcium Phosphorus Total Bilirubin AST ALT Alkaline Phosphatase B-Natriuretic Peptide Total Protein Albumin TSH Free T4 PTH Intact Hepatitis A Ab Total Negative Hep Bs Antigen Negative Hep Bs Antibody Reactive Hep B Core Total Ab Negative Hepatitis C Antibody <0.1 07/25/17 07/25/17 07/25/17 06:24 08:28 08:28 WBC 5.6 RBC 3.00 L Hgb 10.6 L Hct 32.1 L MCV 106.8 H MCH 35.3 H MCHC 33.1 RDW 16.5 H Plt Count 129 L MPV 8.4 Neutrophils % 74.3 Lymphocytes % 12.3 D Monocytes % 10.0 Eosinophils % 2.6 D Basophils % 0.8 Hypochromia Platelet Comment Anisocytosis Macrocytosis Sodium 136 Potassium 4.6 Chloride 100 Carbon Dioxide 29 Anion Gap 7 L BUN 39 H D Creatinine 4.6 H D Creat Clearance w eGFR POC Glucometer 83 Random Glucose 73 L Calcium 7.7 L Phosphorus Total Bilirubin AST ALT Alkaline Phosphatase B-Natriuretic Peptide Total Protein Albumin TSH Free T4 PTH Intact Hepatitis A Ab Total Hep Bs Antigen Hep Bs Antibody Hep B Core Total Ab Hepatitis C Antibody Assessment/Plan awaiting REMOVAL OF GAMMA NAIL AND CONVERSION TO HIP REPLACEMENT Atrial fibrillation Bare metal stent of ostial LCx April 01, 2015 Dr. Elizabeth CAD - mLAD 30% , oLCx 90%, RPDA 40% March 05, 2015 Dr. Elizabeth Diabetes mellitus, type II 1997 Dialysis 2010 End stage renal disease Hypertension Hypothyroidism Mildly reduced EF 48% February 2016 Moderate mean PG 23 mmHg February 2016 Severe GI bleed 2006 Plan cardiac hernandez stable will review ekg and ECHO prior to clearence
[2017-07-25] MEDS ORDERED: BISACODYL 10 MG SUPP.RECT PR PRN (13:03)
--- NOTE | 2017-07-25 15:05 | PN ---
Physical Exam: SUBJECTIVE: Patient seen and examined. Pt denies worsening leg pain, subjective fevers, and chills. She denies chest pain, SOB, nausea, emesis, diarrhea, constipation, and dysuria. OBJECTIVE: Vital Signs Period Temp Pulse Resp BP Sys/[place]son Pulse Ox Last 24 Hr 97.8 F-100.9 F 94-135 18-19 109-118/62-74 100 GENERAL: The patient is awake, alert, and fully oriented, in no acute distress. HEAD: Normal with no signs of trauma. EYES: PERRL, extraocular movements intact, sclera anicteric, conjunctiva clear. No ptosis. ENT: Ears normal, nares patent, oropharynx clear without exudates, moist mucous membranes. NECK: Trachea midline, full range of motion, supple. LUNGS: Breath sounds equal, clear to auscultation bilaterally, no wheezes, no crackles, no accessory muscle use. HEART: Regular rate and rhythm, S1, S2 without murmur, rub or gallop. ABDOMEN: Soft, nontender, nondistended, normoactive bowel sounds, no guarding, no rebound, no hepatosplenomegaly, no masses. EXTREMITIES: decreased erythema, bandage overlying ankle ulcer NEUROLOGICAL: Cranial nerves II through XII grossly intact. Normal speech, gait not observed. PSYCH: Normal mood, normal affect. SKIN: Warm, dry, normal turgor, no rashes or lesions noted Laboratory Results - last 24 hr 07/24/17 07/24/17 07/24/17 07:15 12:15 17:09 WBC RBC Hgb Hct MCV MCH MCHC RDW Plt Count MPV Neutrophils % Lymphocytes % Monocytes % Eosinophils % Basophils % Sodium Potassium Chloride Carbon Dioxide Anion Gap BUN Creatinine POC Glucometer 203 Random Glucose Calcium PTH Intact 281 H Hepatitis A Ab Total Negative Hep Bs Antigen Negative Hep Bs Antibody Reactive Hep B Core Total Ab Negative Hepatitis C Antibody <0.1 07/24/17 07/25/17 07/25/17 21:21 06:24 08:28 WBC 5.6 RBC 3.00 L Hgb 10.6 L Hct 32.1 L MCV 106.8 H MCH 35.3 H MCHC 33.1 RDW 16.5 H Plt Count 129 L MPV 8.4 Neutrophils % 74.3 Lymphocytes % 12.3 D Monocytes % 10.0 Eosinophils % 2.6 D Basophils % 0.8 Sodium Potassium Chloride Carbon Dioxide Anion Gap BUN Creatinine POC Glucometer 152 83 Random Glucose Calcium PTH Intact Hepatitis A Ab Total Hep Bs Antigen Hep Bs Antibody Hep B Core Total Ab Hepatitis C Antibody 07/25/17 08:28 WBC RBC Hgb Hct MCV MCH MCHC RDW Plt Count MPV Neutrophils % Lymphocytes % Monocytes % Eosinophils % Basophils % Sodium 136 Potassium 4.6 Chloride 100 Carbon Dioxide 29 Anion Gap 7 L BUN 39 H D Creatinine 4.6 H D POC Glucometer Random Glucose 73 L Calcium 7.7 L PTH Intact Hepatitis A Ab Total Hep Bs Antigen Hep Bs Antibody Hep B Core Total Ab Hepatitis C Antibody Active Medications Generic Name Dose Route Start Last Admin Trade Name Freq PRN Reason Stop Dose Admin Acetaminophen 325 mg 07/22/17 20:26 07/22/17 23:32 Tylenol - PO 325 mg Q4H PRN Administration PAIN Bisacodyl 10 mg 07/25/17 13:03 Dulcolax Suppository - [place] DAILY PRN CONSTIPATION Cinacalcet 30 mg 07/23/17 10:00 07/25/17 09:08 Sensipar - PO 30 mg [id number]@1000 [facility] Administration Collagenase 1 applic 07/22/17 21:30 07/24/17 17:35 Santyl - TP Not Given DAILY ERNESTINE Furosemide 80 mg 07/23/17 10:00 07/25/17 09:08 Lasix - PO 80 mg DAILY ERNESTINE Administration Heparin Sodium (Porcine) 5,000 unit 07/23/17 22:00 07/25/17 09:08 Heparin - SQ 5,000 unit BID ERNESTINE Administration Insulin Aspart 6 units 07/23/17 07:00 07/25/17 06:26 Novolog Mix 70/30 Vial SQ Not Given AM ERNESTINE Insulin Aspart 8 units 07/22/17 22:00 07/24/17 21:24 Novolog Mix 70/30 Vial SQ 8 units HS ERNESTINE Administration Insulin Aspart 1 vial 07/23/17 07:00 07/25/17 06:25 Novolog Vial Sliding Scale - SQ Not Given BIDAC [facility] Protocol Labetalol HCl 400 mg 07/23/17 11:45 07/25/17 09:08 Normodyne - PO 400 mg BID ERNESTINE Administration Levothyroxine Sodium 200 mcg/ 225 mcg 07/25/17 07:00 07/25/17 06:25 Levothyroxine Sodium 25 mcg PO 225 mcg DAILY@0700 ERNESTINE Administration Magnesium Oxide 400 mg 07/23/17 10:00 07/25/17 09:08 Mag-Ox - PO 400 mg DAILY ERNESTINE Administration Oxycodone HCl 5 mg 07/22/17 20:25 07/22/17 23:32 Roxicodone - PO 5 mg Q4H PRN Administration PAIN LEVEL 6-10 Pantoprazole Sodium 20 mg 07/23/17 10:00 07/25/17 09:08 Protonix - PO 20 mg DAILY ERNESTINE Administration Polyethylene Glycol 17 gm 07/23/17 13:46 Miralax (For Daily Use) - PO DAILY PRN CONSTIPATION Sevelamer Carbonate 800 mg 07/22/17 22:00 07/25/17 08:58 Renvela - PO 800 mg TIDCM ERNESTINE Administration ASSESSMENT/PLAN: 82F w/ hx of DM, OA, ESRD on HD, and recent RLE cellulitis in 02/2017 presenting with right hip, knee, and ankle pain for 2 days. #Right leg pain -Ortho to perform surgery on sunday. #RLE erythema -likely 2/2 chronic venous stasis, unlikely to be cellulitis -no leukocytosis, fever of 100.9 last night which resolved -blood cultures negative to date #R heel ulcer -non draining, healing -management per vascular #rest of medical problems per hospitalist team Plan discussed with attending, Dr. Durand. Dispo: We will continue to follow the patient. Thank you for this consultative opportunity. -Eliot Sheth MD PGY1 Visit type - Emergency Visit Emergency Visit: Yes ED Registration Date: 07/22/17 Care time: The patient presented to the Emergency Department on the above date and was hospitalized for further evaluation of their emergent condition. - New Patient This patient is new to me today: No - Critical Care Critical Care patient: No
--- NOTE | 2017-07-25 15:33 | PN ---
Teaching Attending Note Name of Resident: Eliot Sheth ATTENDING PHYSICIAN STATEMENT I saw and evaluated the patient. I reviewed the resident's note and discussed the case with the resident. I agree with the resident's findings and plan as documented. SUBJECTIVE: doing well low grade temp overnight OBJECTIVE: Vital Signs Period Temp Pulse Resp BP Sys/[place] Pulse Ox Last 24 Hr 97.8 F-100.9 F 94-135 18-19 109-118/62-74 100 foot examined, ulcer unchanged, no associated cellulitis cor-rrr lungs clear CBC, BMP 07/25/17 08:28 07/25/17 08:28 Microbiology 07/23/17 20:25 Blood - Peripheral Venous Blood Culture - Preliminary NO GROWTH OBTAINED AFTER 24 HOURS, INCUBATION TO CONTINUE FOR 4 DAYS. 07/23/17 20:00 Blood - Peripheral Venous Blood Culture - Preliminary NO GROWTH OBTAINED AFTER 24 HOURS, INCUBATION TO CONTINUE FOR 4 DAYS. ASSESSMENT AND PLAN: low grade temps would observe off antibiotics for hip surgery on Sunday
[2017-07-25] MEDS: COLLAGENASE CLOSTRIDIUM HIST. 30 GRAMS TUBE TP SCH (17:33)
--- NOTE | 2017-07-25 17:38 | PN ---
Progress Note (short form) - Note Progress Note: Renal follow up for ESRD on Hd Pt seen and examined during dialysis awake and alert feels cold BP stable Goal UF Is 2.5L access with good flow + isolated fever yesterday evening Vital Signs Temperature 98.8 F 07/24/17 09:45 Pulse Rate 110 H 07/24/17 13:28 Respiratory Rate 18 07/24/17 13:28 Blood Pressure 154/82 07/24/17 13:28 O2 Sat by Pulse Oximetry (%) 100 07/23/17 21:00 Intake & Output 07/21/17 07/22/17 07/23/17 07/24/17 23:59 23:59 23:59 23:59 Intake Total 550 800 120 Balance 550 800 120 Weight 77.111 kg 77.111 kg 89.176 kg NAD awake and alert tachycardic CTA 1+ LE edema CBC, BMP 07/24/17 09:40 07/24/17 09:40 Laboratory Tests 03/03/17 07/24/17 07:30 09:40 MCV 101.3 H Calcium 7.5 L Phosphorus 3.1 Current Medications Acetaminophen (Tylenol -) 325 mg PO Q4H PRN PRN Reason: PAIN Last Admin: 07/22/17 23:32 Dose: 325 mg Aspirin (Asa -) 81 mg PO DAILY [facility] Last Admin: 07/24/17 11:57 Dose: Not Given Cinacalcet (Sensipar -) 30 mg PO [id number]@1000 [facility] Last Admin: 07/23/17 10:52 Dose: 30 mg Collagenase (Santyl -) 1 applic TP DAILY [facility] Last Admin: 07/23/17 10:00 Dose: 1 applic Furosemide (Lasix -) 80 mg PO DAILY [facility] Last Admin: 07/24/17 11:57 Dose: Not Given Heparin Sodium (Porcine) (Heparin -) 5,000 unit SQ BID [facility] Last Admin: 07/24/17 11:57 Dose: Not Given Insulin Aspart (Novolog Mix 70/30 Vial) 6 units SQ AM [facility] Last Admin: 07/24/17 06:10 Dose: Not Given Insulin Aspart (Novolog Mix 70/30 Vial) 8 units SQ HS [facility] Last Admin: 07/23/17 21:33 Dose: 8 units Insulin Aspart (Novolog Vial Sliding Scale -) [facility] Reason: Protocol Last Admin: 07/24/17 06:11 Dose: Not Given Labetalol HCl (Normodyne -) 400 mg PO BID [facility] Last Admin: 07/24/17 11:57 Dose: Not Given Levothyroxine Sodium 200 mcg/ (Levothyroxine Sodium 25 mcg) 225 mcg PO DAILY@ 0700 [facility] Magnesium Oxide (Mag-Ox -) 400 mg PO DAILY [facility] Last Admin: 07/24/17 11:57 Dose: Not Given Oxycodone HCl (Roxicodone -) 5 mg PO Q4H PRN PRN Reason: PAIN LEVEL 6-10 Last Admin: 07/22/17 23:32 Dose: 5 mg Pantoprazole Sodium (Protonix -) 20 mg PO DAILY [facility] Last Admin: 07/24/17 11:57 Dose: Not Given Polyethylene Glycol (Miralax (For Daily Use) -) 17 gm PO DAILY PRN PRN Reason: CONSTIPATION Sevelamer Carbonate (Renvela -) 800 mg PO TIDCM [facility] Last Admin: 07/24/17 11:58 Dose: Not Given 82 year old woman with PMhx of ESRD no HD x 7 years, hypertension, DM who presented with Right LE pain and weakness with some chronic swelling of the LE and admitted for degenerative changes of the right hip. 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
[2017-07-26] MEDS ORDERED: LEVOTHYROXINE NA 25 MCG TABLET (FP) ONE (06:31)
[2017-07-26] MEDS ORDERED: LEVOTHYROXINE NA 100 MCG TABLET (FP) ONE (06:31)
[2017-07-26] MEDS: LEVOTHYROXINE 200 MCG, LEVOTHYROXINE 25 MCG PO SCH (07:11)
[2017-07-26] MEDS: INSULIN (NOVOLOG MIX 70/30) 100 UNITS/ML MDV SQ SCH (07:13)
[2017-07-26] MEDS: INSULIN SLIDING SCALE (NOVOLOG) 1 VIAL SQ SCH ×2 (07:13→17:04)
[2017-07-26] MEDS ORDERED: PT OWN MED DRAWER 7, Y5N ONE ×2 (07:54→18:11)
--- NOTE | 2017-07-26 08:28 | PN ---
Progress Note (short form) - Note Progress Note: patient on schedule for conversion to right hip replacement tomorrow. I have reviewed the CT scan which shows severe erosion of lag screw through the superior acetabulum The patient will need acetabular augmentation and possibly a cage. I have requested Dr Omari Benson to perform the surgery as he has the experience in this type of reconstruction
[2017-07-26] MEDS: SEVELAMER CARBONATE 800 MG TAB (FP) PO SCH ×3 (08:32→17:08)
--- NOTE | 2017-07-26 09:41 | PN ---
Physical Exam: SUBJECTIVE: Patient seen and examined. No acute events overnight. Pt has no complaints. denies fevers, chills, chest pain, SOB, abdominal pain, n/v/d/c. Leg pain is same as yesterday. OBJECTIVE: Vital Signs Period Temp Pulse Resp BP Sys/Willson Pulse Ox Last 24 Hr 97.7 F-98.9 F 100-116 18-18 111-117/61-67 100 GENERAL: elderly lady, awake, alert, and fully oriented, in no acute distress. HEENT: NT, AC, EOMI NECK: Trachea midline, full range of motion, supple. LUNGS: Breath sounds equal, clear to auscultation bilaterally, no wheezes, no crackles, no accessory muscle use. HEART: Regular rate and rhythm, S1, S2 without murmur, rub or gallop. ABDOMEN: Soft, nontender, nondistended, normoactive bowel sounds, no guarding, no rebound, no hepatosplenomegaly, no masses. EXTREMITIES: decreasing erythema, bandage unwrapped over right heel ulcer which is healing and non-draining. NEUROLOGICAL: Cranial nerves II through XII grossly intact. Normal speech, gait not observed. PSYCH: Normal mood, normal affect. Laboratory Results - last 24 hr 07/24/17 07/24/17 07/25/17 07:15 12:15 16:30 POC Glucometer 105 PTH Intact 281 H Hepatitis A Ab Total Negative Hep Bs Antigen Negative Hep Bs Antibody Reactive Hep B Core Total Ab Negative Hepatitis C Antibody <0.1 07/25/17 07/26/17 07/26/17 22:33 07:09 07:58 POC Glucometer 125 62 84 PTH Intact Hepatitis A Ab Total Hep Bs Antigen Hep Bs Antibody Hep B Core Total Ab Hepatitis C Antibody Active Medications Generic Name Dose Route Start Last Admin Trade Name Freq PRN Reason Stop Dose Admin Acetaminophen 325 mg 07/22/17 20:26 07/22/17 23:32 Tylenol - PO 325 mg Q4H PRN Administration PAIN Bisacodyl 10 mg 07/25/17 13:03 Dulcolax Suppository - [place] DAILY PRN CONSTIPATION Cinacalcet 30 mg 07/23/17 10:00 07/25/17 09:08 Sensipar - PO 30 mg MoWeFr@1000 ERNESTINE Administration Collagenase 1 applic 07/22/17 21:30 07/25/17 17:33 Santyl - TP 1 applic DAILY ERNESTINE Administration Furosemide 80 mg 07/23/17 10:00 07/25/17 09:08 Lasix - PO 80 mg DAILY [facility]STINE Administration Heparin Sodium (Porcine) 5,000 unit 07/23/17 22:00 07/25/17 22:34 Heparin - SQ 5,000 unit BID ERNESTINE Administration Heparin Sodium (Porcine) 1,000 unit 07/26/17 06:00 Heparin - IVPUSH 07/26/17 06:01 ONCE ONE Insulin Aspart 6 units 07/23/17 07:00 07/26/17 07:13 Novolog Mix 70/30 Vial SQ Not Given AM ERNESTINE Insulin Aspart 8 units 07/22/17 22:00 07/25/17 22:39 Novolog Mix 70/30 Vial SQ 8 units HS ERNESTINE Administration Insulin Aspart 1 vial 07/23/17 07:00 07/26/17 07:13 Novolog Vial Sliding Scale - SQ Not Given BIDAC [facility] Protocol Labetalol HCl 400 mg 07/23/17 11:45 07/25/17 22:37 Normodyne - PO 400 mg BID ERNESTINE Administration Levothyroxine Sodium 200 mcg/ 225 mcg 07/25/17 07:00 07/26/17 07:11 Levothyroxine Sodium 25 mcg PO 225 mcg DAILY@0700 ER[facility]INE Administration Magnesium Oxide 400 mg 07/23/17 10:00 07/25/17 09:08 Mag-Ox - PO 400 mg DAILY ERNESTINE Administration Oxycodone HCl 5 mg 07/22/17 20:25 07/22/17 23:32 Roxicodone - PO 5 mg Q4H PRN Administration PAIN LEVEL 6-10 Pantoprazole Sodium 20 mg 07/23/17 10:00 07/25/17 09:08 Protonix - PO 20 mg DAILY ERNESTINE Administration Polyethylene Glycol 17 gm 07/23/17 13:46 Miralax (For Daily Use) - PO DAILY PRN CONSTIPATION Sevelamer Carbonate 800 mg 07/22/17 22:00 07/26/17 08:32 Renvela - PO 800 mg TIDCM ERNESTINE Administration ASSESSMENT/PLAN: 82F w/ hx of DM, OA, ESRD on HD, and recent RLE cellulitis in 02/2017 presenting with right hip, knee, and ankle pain for 2 days. #Right leg pain -Ortho to perform surgery on sunday #RLE erythema -likely 2/2 chronic venous stasis, unlikely to be cellulitis -afebrile, no leukocytosis -blood cultures negative to date x 48 hours -no abx needed #R heel ulcer -non draining, healing -management per vascular #rest of medical problems per hospitalist team Plan discussed with attending, Dr. Jane. Dispo: We will continue to follow the patient. Thank you for this consultative opportunity. -Eliot Sheth MD PGY1 Visit type - Emergency Visit Emergency Visit: Yes ED Registration Date: 07/22/17 Care time: The patient presented to the Emergency Department on the above date and was hospitalized for further evaluation of their emergent condition. - New Patient This patient is new to me today: No - Critical Care Critical Care patient: No
[2017-07-26] MEDS: COLLAGENASE CLOSTRIDIUM HIST. 30 GRAMS TUBE TP SCH (10:00)
--- NOTE | 2017-07-26 11:42 | PN ---
Teaching Attending Note Name of Resident: Eliot Sheth ATTENDING PHYSICIAN STATEMENT I saw and evaluated the patient. I reviewed the resident's note and discussed the case with the resident. I agree with the resident's findings and plan as documented. SUBJECTIVE:Remains afebrile no WBC elevation Comfortable OBJECTIVE: ASSESSMENT AND PLAN: Selected Entries 07/26/17 06:00 Temperature 97.7 F Pulse Rate 100 H Respiratory 18 Rate Blood Pressure 117/67 Microbiology 07/23/17 20:25 Blood - Peripheral Venous Blood Culture - Preliminary NO GROWTH OBTAINED AFTER 48 HOURS, INCUBATION TO CONTINUE FOR 3 DAYS. 07/23/17 20:00 Blood - Peripheral Venous Blood Culture - Preliminary NO GROWTH OBTAINED AFTER 48 HOURS, INCUBATION TO CONTINUE FOR 3 DAYS. Laboratory Tests 07/25/17 07/25/17 08:28 08:28 WBC 5.6 RBC 3.00 L Hgb 10.6 L Plt Count 129 L BUN 39 H D Creatinine 4.6 H D Assessment 101.3 fever after admission but normal now. neg cultures looks well. NO documented infection Plan NO evidence for SSTI Ready for orthopedic surgery hip right Lucinda ARNDT
[2017-07-26] MEDS ORDERED: HEPARIN NA (PORCINE) 5,000 UNITS/ML 1ML VIAL IVPUSH ONE (12:15)
--- NOTE | 2017-07-26 12:56 | EKG ---
Test Reason : Blood Pressure : / mmHG Vent. Rate : 096 BPM Atrial Rate : 178 BPM P-R Int : 000 ms QRS Dur : 098 ms QT Int : 372 ms P-R-T Axes : 000 094 169 degrees QTc Int : 469 ms SINUS TACHYCARDIA WITH 2ND DEGREE A-V BLOCK (MOBITZ I) RIGHTWARD AXIS ABNORMAL ECG WHEN COMPARED WITH ECG OF 01-MAR-2017 13:14, PREMATURE ATRIAL COMPLEXES ARE NO LONGER PRESENT SINUS RHYTHM IS NOW WITH 2ND DEGREE A-V BLOCK (MOBITZ I) VENT. RATE HAS INCREASED BY 33 BPM NONSPECIFIC T WAVE ABNORMALITY HAS REPLACED INVERTED T WAVES IN INFERIOR LEADS Confirmed by MARSHALL SWIFT MD ([id number]) on 07/26/2017 12:56:04 PM Referred By: TAMY SULLIVAN Confirmed By:MARSHALL SWIFT MD
[2017-07-26 14:01] LABS: MCH 35.3 pg (25.7-33.7); MCHC 33.2 g/dl (32.0-36.0); MEAN CELL VOLUME 106.5 fl (80-96); MEAN PLT VOLUME 8.8 fl (7.5-11.1); PLATELET COUNT 138 K/MM3 (134-434); RDW 16.1 % (11.6-15.6); WHITE BLOOD COUNT 5.5 K/mm3 (4.0-10.0)
[2017-07-26 14:42] LABS: ANION GAP 12 (8-16); CALCIUM 8.1 mg/dL (8.5-10.1); CO2 25 mmol/L (21-32); CREATININE 5.8 mg/dL (0.55-1.02); GLUCOSE,RANDOM 118 mg/dL (74-106); PHOSPHOROUS 3.8 mg/dL (2.5-4.9)
--- NOTE | 2017-07-26 15:04 | PN ---
Progress Note (short form) - Note Progress Note: patient seen and examined in HD room have pain in right hip for right hip replacement tomorrow cardiac clearance- pending Vital Signs Temp 98.2 F 07/26/17 10:00 Pulse 105 H 07/26/17 14:00 Resp 18 07/26/17 14:00 BP 108/58 07/26/17 14:00 Pulse Ox 100 07/25/17 21:00 Intake & Output 07/25/17 07/26/17 07/26/17 23:59 11:59 23:59 Intake Total 740 420 Balance 740 420 Weight 196 lb 6 oz Intake: Oral 740 420 Other: Voiding Method Bedpan Bedpan Bowel Movement Yes # Bowel Movements 1 Weight Measurement Method Patient Lift Scale Active Medications Acetaminophen (Tylenol -) 325 mg PO Q4H PRN PRN Reason: PAIN Last Admin: 07/22/17 23:32 Dose: 325 mg Bisacodyl (Dulcolax Suppository -) 10 mg [place] DAILY PRN PRN Reason: CONSTIPATION Cinacalcet (Sensipar -) 30 mg PO MoWeFr@1000 [facility] Last Admin: 07/25/17 09:08 Dose: 30 mg Collagenase (Santyl -) 1 applic TP DAILY [facility] Last Admin: 07/25/17 17:33 Dose: 1 applic Furosemide (Lasix -) 80 mg PO DAILY [facility] Last Admin: 07/25/17 09:08 Dose: 80 mg Heparin Sodium (Porcine) (Heparin -) 5,000 unit SQ BID [facility] Last Admin: 07/25/17 22:34 Dose: 5,000 unit Insulin Aspart (Novolog Mix 70/30 Vial) 6 units SQ AM [facility] Last Admin: 07/26/17 07:13 Dose: Not Given Insulin Aspart (Novolog Mix 70/30 Vial) 8 units SQ HS [facility] Last Admin: 07/25/17 22:39 Dose: 8 units Insulin Aspart (Novolog Vial Sliding Scale -) 1 vial SQ BIDAC [facility] PRN Reason: Protocol Last Admin: 07/26/17 07:13 Dose: Not Given Labetalol HCl (Normodyne -) 400 mg PO BID [facility] Last Admin: 07/25/17 22:37 Dose: 400 mg Levothyroxine Sodium 200 mcg/ (Levothyroxine Sodium 25 mcg) 225 mcg PO DAILY@ 0700 [facility] Last Admin: 07/26/17 07:11 Dose: 225 mcg Magnesium Oxide (Mag-Ox -) 400 mg PO DAILY [facility] Last Admin: 07/25/17 09:08 Dose: 400 mg Oxycodone HCl (Roxicodone -) 5 mg PO Q4H PRN PRN Reason: PAIN LEVEL 6-10 Last Admin: 07/22/17 23:32 Dose: 5 mg Pantoprazole Sodium (Protonix -) 20 mg PO DAILY [facility] Last Admin: 07/25/17 09:08 Dose: 20 mg Polyethylene Glycol (Miralax (For Daily Use) -) 17 gm PO DAILY PRN PRN Reason: CONSTIPATION Sevelamer Carbonate (Renvela -) 800 mg PO TIDCM [facility] Last Admin: 07/26/17 13:02 Dose: 800 mg Laboratory Results - last 24 hr 07/25/17 07/25/17 07/26/17 16:30 22:33 07:09 WBC RBC Hgb Hct MCV MCH MCHC RDW Plt Count MPV Sodium Potassium Chloride Carbon Dioxide Anion Gap BUN Creatinine POC Glucometer 105 125 62 Random Glucose Calcium Phosphorus 07/26/17 07/26/17 07/26/17 07:58 13:00 13:00 WBC 5.5 RBC 3.13 L Hgb 11.0 Hct 33.3 MCV 106.5 H MCH 35.3 H MCHC 33.2 RDW 16.1 H Plt Count 138 MPV 8.8 Sodium 134 L Potassium 5.4 H Chloride 97 L Carbon Dioxide 25 Anion Gap 12 BUN 55 H D Creatinine 5.8 H D POC Glucometer 84 Random Glucose 118 H D Calcium 8.1 L Phosphorus 3.8 D N- alert, oriented cvs-s1s2, irregular, systolic murmur Lungs-clear abd-soft, nt, nd LE- stasis changes, edema, right heel ulcer- dressing in place Intractable hip pain -- due to severe osteoarthritis, avascular necrosis per CT report -- had hip replacement in 2009- Dr Marquez -- better with Oxycodone -- Ortho eval noted- for ORIF on Sunday , dc ASA -pending cardiac clearance Fever -- unknown cause --one isolated temp -cultures all negative ESRD onHD -- HD - - Sat -- not in volume overload Chronic venous insufficiency -- not cellulitis Diabetic foot ulcer -- wound care eval -- continue with current wound treatment CAD/Paroxysmal AFib -- no AC due to h/o GI bleeding and pt had refused in the past -- stop ASA 81 mg daily as she is going for surgery Sunday -- heart rate better on Labetalol 400 mg BID -- increase Synthroid -- Cardiology eval for clearance -pending CHF- not in overload DVT prophylaxis-- Heparin sc -- hold AM dose on Sunday prior to surgery pending cardiac clearance Problem List - Problems (1) Atrial fibrillation Code(s): I48.91 - UNSPECIFIED ATRIAL FIBRILLATION (2) Congestive heart failure (CHF) Code(s): I50.9 - HEART FAILURE, UNSPECIFIED (3) Avascular necrosis Code(s): M87.00 - IDIOPATHIC ASEPTIC NECROSIS OF UNSPECIFIED BONE (4) Hip pain, right Code(s): M25.551 - PAIN IN RIGHT HIP (5) CAD (coronary artery disease) Code(s): I25.10 - ATHSCL HEART DISEASE OF [place] CORONARY ARTERY W/O ANG PCTRS (6) ESRD (end stage renal disease) on dialysis Code(s): N18.6 - END STAGE RENAL DISEASE; Z99.2 - DEPENDENCE ON RENAL DIALYSIS (7) Renal dialysis status Code(s): Z99.2 - DEPENDENCE ON RENAL DIALYSIS (8) Venous (peripheral) insufficiency Code(s): I87.2 - VENOUS INSUFFICIENCY (CHRONIC) (PERIPHERAL) (9) Diabetes Code(s): E11.9 - TYPE 2 DIABETES MELLITUS WITHOUT COMPLICATIONS (10) Tachycardia Code(s): R00.0 - TACHYCARDIA, UNSPECIFIED (11) Diabetic foot ulcer Code(s): E11.621 - TYPE 2 DIABETES MELLITUS WITH FOOT ULCER; L97.509 - NON- PRESSURE CHRONIC ULCER OTH PRT UNSP FOOT W UNSP SEVERITY (12) Hypertension Code(s): I10 - ESSENTIAL (PRIMARY) HYPERTENSION (13) 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
--- NOTE | 2017-07-26 15:07 | PN ---
Progress Note (short form) - Note Progress Note: Pt examined alongside [employer] [place]-- I agree with findings and plan has c/o pain in right hip - relieved by pain meds Pt examined in dialysis unit Vital Signs - 24 hr 07/25/17 07/25/17 07/26/17 18:10 21:00 02:01 Temperature 98.1 F 98.9 F Pulse Rate 101 H 116 H Respiratory 18 18 18 Rate Blood Pressure 111/61 113/61 O2 Sat by Pulse 100 Oximetry (%) 07/26/17 07/26/17 07/26/17 06:00 10:00 13:00 Temperature 97.7 F 98.2 F Pulse Rate 100 H 102 H 114 H Respiratory 18 18 18 Rate Blood Pressure 117/67 104/62 102/60 O2 Sat by Pulse Oximetry (%) 07/26/17 07/26/17 13:30 14:00 Temperature Pulse Rate 102 H 105 H Respiratory 18 18 Rate Blood Pressure 110/60 108/58 O2 Sat by Pulse Oximetry (%) Current Medications Generic Name Dose Route Start Last Admin Trade Name Freq PRN Reason Stop Dose Admin Acetaminophen 325 mg 07/22/17 20:26 07/22/17 23:32 Tylenol - PO 325 mg Q4H PRN Administration PAIN Bisacodyl 10 mg 07/25/17 13:03 Dulcolax Suppository - CT DAILY PRN CONSTIPATION Cinacalcet 30 mg 07/23/17 10:00 07/25/17 09:08 Sensipar - PO 30 mg MoWeFr@1000 ERNESTINE Administration Collagenase 1 applic 07/22/17 21:30 07/25/17 17:33 Santyl - TP 1 applic DAILY ERNESTINE Administration Furosemide 80 mg 07/23/17 10:00 07/25/17 09:08 Lasix - PO 80 mg DAILY ERNESTINE Administration Heparin Sodium (Porcine) 5,000 unit 07/23/17 22:00 07/25/17 22:34 Heparin - SQ 5,000 unit BID ERNESTINE Administration Insulin Aspart 6 units 07/23/17 07:00 07/26/17 07:13 Novolog Mix 70/30 Vial SQ Not Given AM ERNESTINE Insulin Aspart 8 units 07/22/17 22:00 07/25/17 22:39 Novolog Mix 70/30 Vial SQ 8 units HS ERNESTINE Administration Insulin Aspart 1 vial 07/23/17 07:00 07/26/17 07:13 Novolog Vial Sliding Scale - SQ Not Given BIDAC [facility] Protocol Labetalol HCl 400 mg 07/23/17 11:45 07/25/17 22:37 Normodyne - PO 400 mg BID ERNESTINE Administration Levothyroxine Sodium 200 mcg/ 225 mcg 07/25/17 07:00 07/26/17 07:11 Levothyroxine Sodium 25 mcg PO 225 mcg DAILY@0700 ERNESTINE Administration Magnesium Oxide 400 mg 07/23/17 10:00 07/25/17 09:08 Mag-Ox - PO 400 mg DAILY ERNESTINE Administration Oxycodone HCl 5 mg 07/22/17 20:25 07/22/17 23:32 Roxicodone - PO 5 mg Q4H PRN Administration PAIN LEVEL 6-10 Pantoprazole Sodium 20 mg 07/23/17 10:00 07/25/17 09:08 Protonix - PO 20 mg DAILY ERNESTINE Administration Polyethylene Glycol 17 gm 07/23/17 13:46 Miralax (For Daily Use) - PO DAILY PRN CONSTIPATION Sevelamer Carbonate 800 mg 07/22/17 22:00 07/26/17 13:02 Renvela - PO 800 mg TIDCM ERNESTINE Administration Laboratory Results - last 24 hr 07/25/17 07/25/17 07/26/17 16:30 22:33 07:09 WBC RBC Hgb Hct MCV MCH MCHC RDW Plt Count MPV Sodium Potassium Chloride Carbon Dioxide Anion Gap BUN Creatinine POC Glucometer 105 125 62 Random Glucose Calcium Phosphorus 07/26/17 07/26/17 07/26/17 07:58 13:00 13:00 WBC 5.5 RBC 3.13 L Hgb 11.0 Hct 33.3 MCV 106.5 H MCH 35.3 H MCHC 33.2 RDW 16.1 H Plt Count 138 MPV 8.8 Sodium 134 L Potassium 5.4 H Chloride 97 L Carbon Dioxide 25 Anion Gap 12 BUN 55 H D Creatinine 5.8 H D POC Glucometer 84 Random Glucose 118 H D Calcium 8.1 L Phosphorus 3.8 D S1 s2 RRR Systolic murmur Lungs clear Abd-- soft, NT, ND edema trace rt foot dressing in place PLAN Echo and EKG noted pt not in volume overload ASA on hold for OR tomorrow for right hip ORIF cardiology clearance pending No fever, cultures negative Hold AM dose of heparin pain control Problem List - Problems (1) Hip pain, right Code(s): M25.551 - PAIN IN RIGHT HIP (2) CAD (coronary artery disease) Code(s): I25.10 - ATHSCL HEART DISEASE OF [place] CORONARY ARTERY W/O ANG PCTRS (3) Diabetes 1.5, managed as type 1 Code(s): E10.9 - TYPE 1 DIABETES MELLITUS WITHOUT COMPLICATIONS (4) Diabetic foot ulcer Code(s): E11.621 - TYPE 2 DIABETES MELLITUS WITH FOOT ULCER; L97.509 - NON- PRESSURE CHRONIC ULCER OTH PRT UNSP FOOT W UNSP SEVERITY (5) ESRD (end stage renal disease) on dialysis Code(s): N18.6 - END STAGE RENAL DISEASE; Z99.2 - DEPENDENCE ON RENAL DIALYSIS (6) Hypertension Code(s): I10 - ESSENTIAL (PRIMARY) HYPERTENSION (7) Hypothyroidism Code(s): E03.9 - HYPOTHYROIDISM, UNSPECIFIED (8) Venous (peripheral) insufficiency Code(s): I87.2 - VENOUS INSUFFICIENCY (CHRONIC) (PERIPHERAL) (9) Fever Code(s): R50.9 - FEVER, UNSPECIFIED
--- NOTE | 2017-07-26 15:32 | PN ---
Progress Note, Physician Chief Complaint: Pt is A&Ox3. She denies chest pain or dyspnea. +pain at site of leg fracture. History of Present Illness: 82yo F hx ESRD on HD (full session yesterday), OA p/w R hip, R knee, and R ankle pain that she relates to her arthritis since yesterday evening. Denies trauma. States symptoms occurred after dinner last night when she felt her joints lock up. She has not been able to move since, called her sister this morning who went over and found that the patient was barely able to move due to the pain. Tried tylenol for the pain with minimal relief. Not overly exerting herself. Denies fevers, chills but reports that her LE is increasingly red. Her sister states her leg is as red as it was when she had cellulitis last in March. Denies CP, SOB, headache, focal weakness or numbness. Denies falls. - Current Medication List Current Medications: Active Medications Acetaminophen (Tylenol -) 325 mg PO Q4H PRN PRN Reason: PAIN Last Admin: 07/22/17 23:32 Dose: 325 mg Bisacodyl (Dulcolax Suppository -) 10 mg [place] DAILY PRN PRN Reason: CONSTIPATION Cinacalcet (Sensipar -) 30 mg PO MoWeFr@1000 [facility] Last Admin: 07/25/17 09:08 Dose: 30 mg Collagenase (Santyl -) 1 applic TP DAILY [facility] Last Admin: 07/25/17 17:33 Dose: 1 applic Furosemide (Lasix -) 80 mg PO DAILY [facility] Last Admin: 07/25/17 09:08 Dose: 80 mg Heparin Sodium (Porcine) (Heparin -) 5,000 unit SQ BID [facility] Last Admin: 07/25/17 22:34 Dose: 5,000 unit Insulin Aspart (Novolog Mix 70/30 Vial) 6 units SQ AM [facility] Last Admin: 07/26/17 07:13 Dose: Not Given Insulin Aspart (Novolog Mix 70/30 Vial) 8 units SQ HS [facility] Last Admin: 07/25/17 22:39 Dose: 8 units Insulin Aspart (Novolog Vial Sliding Scale -) 1 vial SQ BIDAC [facility] PRN Reason: Protocol Last Admin: 07/26/17 07:13 Dose: Not Given Labetalol HCl (Normodyne -) 400 mg PO BID [facility] Last Admin: 07/25/17 22:37 Dose: 400 mg Levothyroxine Sodium 200 mcg/ (Levothyroxine Sodium 25 mcg) 225 mcg PO DAILY@ 0700 [facility] Last Admin: 07/26/17 07:11 Dose: 225 mcg Magnesium Oxide (Mag-Ox -) 400 mg PO DAILY [facility] Last Admin: 07/25/17 09:08 Dose: 400 mg Oxycodone HCl (Roxicodone -) 5 mg PO Q4H PRN PRN Reason: PAIN LEVEL 6-10 Last Admin: 07/22/17 23:32 Dose: 5 mg Pantoprazole Sodium (Protonix -) 20 mg PO DAILY [facility] Last Admin: 07/25/17 09:08 Dose: 20 mg Polyethylene Glycol (Miralax (For Daily Use) -) 17 gm PO DAILY PRN PRN Reason: CONSTIPATION Sevelamer Carbonate (Renvela -) 800 mg PO TIDCM [facility] Last Admin: 07/26/17 13:02 Dose: 800 mg - Objective Vital Signs: Vital Signs Temperature 98.2 F 07/26/17 10:00 Pulse Rate 105 H 07/26/17 14:00 Respiratory Rate 18 07/26/17 14:00 Blood Pressure 108/58 07/26/17 14:00 O2 Sat by Pulse Oximetry (%) 100 07/25/17 21:00 Constitutional: Yes: Calm Eyes: Yes: WNL HENT: Yes: WNL Neck: Yes: WNL Cardiovascular: Yes: Pulse Irregular Respiratory: Yes: Regular Gastrointestinal: Yes: Soft ...Rectal Exam: Yes: Deferred Genitourinary: No: Anuria Breast(s): Yes: WNL Musculoskeletal: Yes: Muscle Pain Extremities: Yes: Cool, External Rotation Edema: No Peripheral Pulses WNL: Yes Neurological: Yes: Weakness Psychiatric: Yes: WNL Labs: CBC, BMP 07/26/17 13:00 07/26/17 13:00 Problem List - Problems (1) Systolic and diastolic CHF w/reduced LV function, NYHA class 4 Assessment/Plan: Recommend changing labetolol to carvedilol. Add lisinopril if BP allows (systolic CHF; DM). Code(s): I50.40 - UNSP COMBINED SYSTOLIC AND DIASTOLIC (CONGESTIVE) HRT FAIL (2) Atrial fibrillation Code(s): I48.91 - UNSPECIFIED ATRIAL FIBRILLATION (3) Cellulitis and abscess of right lower extremity Code(s): L03.115 - CELLULITIS OF RIGHT LOWER LIMB; L02.415 - CUTANEOUS ABSCESS OF RIGHT LOWER LIMB (4) Diabetes Code(s): E11.9 - TYPE 2 DIABETES MELLITUS WITHOUT COMPLICATIONS (5) Hip pain, right Assessment/Plan: fracture of hip. see under "aortic stenosis" regarding upcoming hip surgery and cardiac risks. 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 Poor LVEF. Denies chest pain, but her niece says that pt has been having increasingly severe dyspnea and "lips turn blue" over the past 2-3 months with even mild physical exertion. Pt insists on undergoing hip surgery tomorrow, despite knowing she is at least at moderate risk of a perioperative cardiac event. Code(s): I35.0 - NONRHEUMATIC AORTIC (VALVE) STENOSIS
--- NOTE | 2017-07-26 15:52 | PN ---
Progress Note (short form) - Note Progress Note: Renal follow up for ESRD on Hd Pt seen and examined during dialysis BF at goal BP stable goal Uf 2.5L pt without any acute complaints Vital Signs Temperature 98.2 F 07/26/17 10:00 Pulse Rate 105 H 07/26/17 14:00 Respiratory Rate 18 07/26/17 14:00 Blood Pressure 108/58 07/26/17 14:00 O2 Sat by Pulse Oximetry (%) 100 07/25/17 21:00 Intake & Output 07/23/17 07/24/17 07/25/17 07/26/17 23:59 23:59 23:59 23:59 Intake Total 800 480 860 420 Balance 800 480 860 420 Weight 77.111 kg 89.176 kg 89.074 kg NAD awake and alert tachycardic CTA 1+ LE edema CBC, BMP 07/26/17 13:00 07/26/17 13:00 Current Medications Acetaminophen (Tylenol -) 325 mg PO Q4H PRN PRN Reason: PAIN Last Admin: 07/22/17 23:32 Dose: 325 mg Bisacodyl (Dulcolax Suppository -) 10 mg [place] DAILY PRN PRN Reason: CONSTIPATION Cinacalcet (Sensipar -) 30 mg PO MoWeFr@1000 [facility] Last Admin: 07/25/17 09:08 Dose: 30 mg Collagenase (Santyl -) 1 applic TP DAILY [facility] Last Admin: 07/25/17 17:33 Dose: 1 applic Furosemide (Lasix -) 80 mg PO DAILY [facility] Last Admin: 07/25/17 09:08 Dose: 80 mg Heparin Sodium (Porcine) (Heparin -) 5,000 unit SQ BID [facility] Last Admin: 07/25/17 22:34 Dose: 5,000 unit Insulin Aspart (Novolog Mix 70/30 Vial) 6 units SQ AM [facility] Last Admin: 07/26/17 07:13 Dose: Not Given Insulin Aspart (Novolog Mix 70/30 Vial) 8 units SQ HS [facility] Last Admin: 07/25/17 22:39 Dose: 8 units Insulin Aspart (Novolog Vial Sliding Scale -) 1 vial SQ BIDAC [facility] PRN Reason: Protocol Last Admin: 07/26/17 07:13 Dose: Not Given Labetalol HCl (Normodyne -) 400 mg PO BID [facility] Last Admin: 07/25/17 22:37 Dose: 400 mg Levothyroxine Sodium 200 mcg/ (Levothyroxine Sodium 25 mcg) 225 mcg PO DAILY@ 0700 [facility] Last Admin: 07/26/17 07:11 Dose: 225 mcg Magnesium Oxide (Mag-Ox -) 400 mg PO DAILY [facility] Last Admin: 07/25/17 09:08 Dose: 400 mg Oxycodone HCl (Roxicodone -) 5 mg PO Q4H PRN PRN Reason: PAIN LEVEL 6-10 Last Admin: 07/22/17 23:32 Dose: 5 mg Pantoprazole Sodium (Protonix -) 20 mg PO DAILY [facility] Last Admin: 07/25/17 09:08 Dose: 20 mg Polyethylene Glycol (Miralax (For Daily Use) -) 17 gm PO DAILY PRN PRN Reason: CONSTIPATION Sevelamer Carbonate (Renvela -) 800 mg PO TIDCM [facility] Last Admin: 07/26/17 13:02 Dose: 800 mg 82 year old woman with PMhx of ESRD no HD x 7 years, hypertension, DM who presented with Right LE pain and weakness with some chronic swelling of the LE and admitted for degenerative changes of the right hip. #Avascular Necorosis/Degenerative changes of the right hip with weakness and and LE pain for joint replacement by ortho on Sunday #ESRD on HD tolerating dialysis well today #Hypertension Continue Labetalol Goal BP < 140/90 #Renal Osteodystrophy Corrected Ca is WNL Phos at goal PTH pending continue Sensipar Thank you Will follow Kenny Yeboah DO
[2017-07-26] MEDS: FUROSEMIDE 40 MG TABLET (FP) PO SCH (17:05)
[2017-07-26] MEDS: MAGNESIUM OXIDE 400 MG TABLET (FP) PO SCH (17:05)
[2017-07-26] MEDS: PANTOPRAZOLE 20 MG TABLET (FP) PO SCH (17:05)
[2017-07-26] MEDS: LABETALOL HCL 100 MG TABLET (FP) PO SCH (17:05)
[2017-07-26] MEDS: HEPARIN NA (PORCINE) 5,000 UNITS/ML 1ML VIAL SQ SCH (17:09)
[2017-07-27] MEDS: LABETALOL HCL 100 MG TABLET (FP) PO SCH ×2 (00:01→11:21)
[2017-07-27] MEDS: INSULIN (NOVOLOG MIX 70/30) 100 UNITS/ML MDV SQ SCH ×3 (00:01→21:14)
[2017-07-27] MEDS ORDERED: LEVOTHYROXINE NA 100 MCG TABLET (FP) ONE (06:05)
[2017-07-27] MEDS ORDERED: LEVOTHYROXINE NA 25 MCG TABLET (FP) ONE (06:07)
[2017-07-27] MEDS: LEVOTHYROXINE 200 MCG, LEVOTHYROXINE 25 MCG PO SCH (06:30)
[2017-07-27] MEDS: INSULIN SLIDING SCALE (NOVOLOG) 1 VIAL SQ SCH ×2 (06:33→17:00)
[2017-07-27 06:59] LABS: MCH 35.6 pg (25.7-33.7); MCHC 33.4 g/dl (32.0-36.0); MEAN CELL VOLUME 106.3 fl (80-96); MEAN PLT VOLUME 8.5 fl (7.5-11.1); PLATELET COUNT 155 K/MM3 (134-434); RDW 15.8 % (11.6-15.6); WHITE BLOOD COUNT 5.8 K/mm3 (4.0-10.0)
[2017-07-27 07:10] LABS: INR 1.22 (0.82-1.09); PROTHROMBIN TIME (PATIENT) 13.8 SEC (9.98-11.88)
[2017-07-27 07:29] LABS: ALBUMIN 2.1 g/dl (3.4-5.0); ANION GAP 6 (8-16); BILIRUBIN,TOTAL 1.2 mg/dL (0.2-1.0); CALCIUM 7.8 mg/dL (8.5-10.1); CO2 31 mmol/L (21-32); CREATININE 4.1 mg/dL (0.55-1.02); GLUCOSE,RANDOM 76 mg/dL (74-106); SGOT/AST 29 U/L (15-37); SGPT/ALT 13 U/L (12-78); TOT PROT 6.1 g/dl (6.4-8.2)
[2017-07-27 07:30] LABS: ALK PHOS 229 U/L (45-117)
[2017-07-27] MEDS: SEVELAMER CARBONATE 800 MG TAB (FP) PO SCH ×3 (07:57→19:56)
[2017-07-27] MEDS ORDERED: PHENYLEPHRINE HCL 10 MG/1 ML SINGLE DOSE VIAL ONE (08:11)
[2017-07-27] MEDS ORDERED: ETOMIDATE 20 MG/10 ML AMPUL IVPUSH ONE (08:11)
[2017-07-27] MEDS ORDERED: fentaNYL CITRATE 250 MCG/5 ML VIAL ONE ×2 (08:12→09:56)
[2017-07-27] MEDS ORDERED: PROPOFOL 20 ML ONE (08:12)
[2017-07-27] MEDS ORDERED: ROCURONIUM BROMIDE 50 MG/5 ML VIAL ONE ×2 (08:12→09:15)
[2017-07-27] MEDS ORDERED: VANCOMYCIN 1,000 MG VIAL (RESTRICTED TO ID ONLY) ONE ×2 (08:41→09:07)
[2017-07-27] MEDS ORDERED: CLINDAMYCIN PHOSPHATE 600 MG/4 ML VIAL ONE (09:07)
[2017-07-27] MEDS ORDERED: CLINDAMYCIN PHOSPHATE 300 MG/2 ML VIAL IVPB ONE (09:10)
[2017-07-27] MEDS ORDERED: VANCOMYCIN 1,000 MG VIAL (RESTRICTED TO ID ONLY) IVPB ONE (09:16)
[2017-07-27] MEDS ORDERED: DEXAMETHASONE SOD PHOSPHATE 4 MG/1 ML VIAL ONE (10:15)
[2017-07-27] MEDS ORDERED: ONDANSETRON 4 MG/2 ML VIAL ONE (10:15)
[2017-07-27] MEDS ORDERED: NEOSTIGMINE METHYLSULFATE 0.5 MG/ML - 10 ML MDV ONE (10:59)
--- NOTE | 2017-07-27 11:19 | PN ---
Progress Note, Physician Chief Complaint: for right hip ORIF - Current Medication List Current Medications: Active Medications Acetaminophen (Tylenol -) 325 mg PO Q4H PRN PRN Reason: PAIN Last Admin: 07/22/17 23:32 Dose: 325 mg Bisacodyl (Dulcolax Suppository -) 10 mg OK DAILY PRN PRN Reason: CONSTIPATION Cinacalcet (Sensipar -) 30 mg PO MoWeFr@1000 [facility] Last Admin: 07/25/17 09:08 Dose: 30 mg Collagenase (Santyl -) 1 applic TP DAILY [facility] Last Admin: 07/26/17 10:00 Dose: 1 applic Furosemide (Lasix -) 80 mg PO DAILY [facility] Last Admin: 07/26/17 17:05 Dose: 80 mg Heparin Sodium (Porcine) (Heparin -) 5,000 unit SQ BID [facility] Last Admin: 07/26/17 17:09 Dose: Not Given Insulin Aspart (Novolog Mix 70/30 Vial) 6 units SQ AM [facility] Last Admin: 07/27/17 06:33 Dose: Not Given Insulin Aspart (Novolog Mix 70/30 Vial) 8 units SQ HS [facility] Last Admin: 07/27/17 00:01 Dose: Not Given Insulin Aspart (Novolog Vial Sliding Scale -) 1 vial SQ BIDAC [facility] PRN Reason: Protocol Last Admin: 07/27/17 06:33 Dose: Not Given Labetalol HCl (Normodyne -) 400 mg PO BID [facility] Last Admin: 07/27/17 00:01 Dose: 400 mg Levothyroxine Sodium 200 mcg/ (Levothyroxine Sodium 25 mcg) 225 mcg PO DAILY@ 0700 [facility] Last Admin: 07/27/17 06:30 Dose: 225 mcg Magnesium Oxide (Mag-Ox -) 400 mg PO DAILY [facility] Last Admin: 07/26/17 17:05 Dose: 400 mg Oxycodone HCl (Roxicodone -) 5 mg PO Q4H PRN PRN Reason: PAIN LEVEL 6-10 Last Admin: 07/22/17 23:32 Dose: 5 mg Pantoprazole Sodium (Protonix -) 20 mg PO DAILY [facility] Last Admin: 07/26/17 17:05 Dose: 20 mg Polyethylene Glycol (Miralax (For Daily Use) -) 17 gm PO DAILY PRN PRN Reason: CONSTIPATION Sevelamer Carbonate (Renvela -) 800 mg PO TIDCM [facility] Last Admin: 07/27/17 07:57 Dose: Not Given - Objective Vital Signs: Vital Signs Temperature 99.4 F 07/27/17 07:01 Pulse Rate 93 H 07/27/17 07:01 Respiratory Rate 18 07/27/17 07:01 Blood Pressure 94/58 07/27/17 07:01 O2 Sat by Pulse Oximetry (%) 100 07/26/17 22:00 Constitutional: Yes: No Distress Cardiovascular: Yes: Regular Rate and Rhythm Respiratory: Yes: Diminished Gastrointestinal: Yes: Normal Bowel Sounds, Soft. No: Distention, Tenderness Edema: Yes Labs: CBC, BMP 07/27/17 06:25 07/27/17 06:25 INR, PTT INR 1.22 (0.82-1.09) H 07/27/17 06:25 Problem List - Problems (1) Hip pain, right Code(s): M25.551 - PAIN IN RIGHT HIP (2) CAD (coronary artery disease) Code(s): I25.10 - ATHSCL HEART DISEASE OF [place] CORONARY ARTERY W/O ANG PCTRS (3) Diabetes 1.5, managed as type 1 Code(s): E10.9 - TYPE 1 DIABETES MELLITUS WITHOUT COMPLICATIONS (4) Diabetic foot ulcer Code(s): E11.621 - TYPE 2 DIABETES MELLITUS WITH FOOT ULCER; L97.509 - NON- PRESSURE CHRONIC ULCER OTH PRT UNSP FOOT W UNSP SEVERITY (5) ESRD (end stage renal disease) on dialysis Code(s): N18.6 - END STAGE RENAL DISEASE; Z99.2 - DEPENDENCE ON RENAL DIALYSIS (6) Hypertension Code(s): I10 - ESSENTIAL (PRIMARY) HYPERTENSION (7) Hypothyroidism Code(s): E03.9 - HYPOTHYROIDISM, UNSPECIFIED (8) Venous (peripheral) insufficiency Code(s): I87.2 - VENOUS INSUFFICIENCY (CHRONIC) (PERIPHERAL) (9) Fever Code(s): R50.9 - FEVER, UNSPECIFIED Assessment/Plan PLAN intractable hip pain -- due to severe osteoarthritis, avascular necrosis per CT report -- had hip replacement in 2009- Dr Marquez -- better with Oxycodone -- for ORIF today Fever -- isolated temp -- off antibiotics ESRD onHD -- HD - - Sat -- not in volume overload Chronic venous insufficiency -- not cellulitis Diabetic foot ulcer -- wound care eval -- continue with current wound treatment CAD/Paroxysmal AFib -- no AC due to h/o GI bleeding and pt had refused in the past -- stop ASA 81 mg daily as she is going for surgery today -- heart rate better on Labetalol 400 mg BID -- increase Synthroid DVT prophylaxis-- Heparin sc
[2017-07-27] MEDS: FUROSEMIDE 40 MG TABLET (FP) PO SCH (11:21)
[2017-07-27] MEDS: MAGNESIUM OXIDE 400 MG TABLET (FP) PO SCH (11:21)
[2017-07-27] MEDS ORDERED: ONDANSETRON 4 MG/2 ML VIAL IVPUSH PRN (11:21)
[2017-07-27] MEDS: PANTOPRAZOLE 20 MG TABLET (FP) PO SCH (11:21)
[2017-07-27] MEDS: COLLAGENASE CLOSTRIDIUM HIST. 30 GRAMS TUBE TP SCH (11:22)
[2017-07-27] MEDS: CINACALCET HCL 30 MG TAB (FP) PO SCH (11:22)
[2017-07-27] MEDS: HYDROmorphone HCL CARPU-JECT 1 MG/1 ML DISP.SYRIN IVPUSH PRN ×2 (11:40→11:45)
[2017-07-27] MEDS ORDERED: HYDROmorphone HCL CARPU-JECT 2 MG/1 ML DISP.SYRIN ONE (11:46)
--- NOTE | 2017-07-27 12:34 | OP ---
Operative Note - Note: Operative Date: 07/27/17 Pre-Operative Diagnosis: Right hip hardware failure Operation: 1. Removal of right hip hardware. 2. Trans-trochanteric right total hip replacement Findings: Failed right Teresa Gamma nail (short). Implants: Teresa. Zoroastrian Modular Stem - 24mm x 195mm. Trident-Tritanium Cup - 54mm. Poly Liner - 32mm, neutral. Head - 32mm, -4mm, metal. Trochanteric conservation of resources commissioner claw - Medium. Dall-Miles cables x 2 Post-Operative Diagnosis: Same as Pre-op Surgeon: Omari Benson Painter Airbrush: Deng Benson Anesthesia: General Specimens Removed: Right hip Gamma Nail Estimated Blood Loss (mls): 700 Operative Report Dictated: Yes
--- NOTE | 2017-07-27 15:52 | PN ---
Progress Note (short form) - Note Progress Note: This is an 82 y/o F with PMH HTN, ESRD on HD, OA p/w R hip, R knee, and R ankle pain, who presented to the ED after having trouble ambulating at home two days prior to admission on 07/22/17. As per pt, she broke her R hip in July 2010. She had a delgado placed by Dr. Marquez, and over the next few years, she developed gradual arthritis in her b/l knees and lower extremities. As it progressed, pt had difficulty ambulating and started using a wheelchair when outside and a walker in her home. This past Sunday, she attended dialysis and noticed intermittent stiffness in her R hip which did not dissipate. The following day, she had trouble rising from the toilet d/t severe hip pain, and her sister called 911 to bring her to the ED. As per pt, while there, pt had x- rays done which showed movement of the delgado in her R hip, thus she was told she needed subsequent R hip replacement surgery. Surgery was done by Dr. Benson. s/p Removal of right hip hardware, trans- trochanteric right total hip replacement. Today is PO Day 0. Pt being managed in ICU for post-op monitoring. #s/p removal of R hip hardware, trans-trochanteric R total hip replacement PO Day 0 -monitor WILDA output- it is common for pts to have large amounts of drainage -watch BP, pt currently 80/60 however MAP 63 most likely 2/2 blood loss, dilaudid -received 2u PRBCs -F/u 4pm CBC -since pt has increased WILDA output, will give 1 unit over slow rate currently -Will also receive additional unit overnight at slow rate -Pt for dialysis tomorrow -Discussed with Dr. Benson #afib -in past, was on coumadin for a/c but experienced increased bleeding so it was d /c. Pt was then placed on aspirin and plavix, and most recently has just been on aspirin for a/c. However will hold for now d/t large quantity of blood draining from WILDA (>300ccs) -pt's labetalol may need to be changed to coreg 3.125 BID -Will be seen over weekend by Cardio and meds will be adjusted - hold for now as pt hypotensive -Discussed with Dr. Hedrick #ESRD -Pt has been anuric -Dialysis tomorrow -To receive 1g vanco after dialysis- prophylactic #F/E/N -careful with fluids as pt ESRD, do not want to overload -will continue to monitor electrolytes -clear liquid diet Na controlled #Prophylaxis DVT: SCD's #Disposition Continued monitoring in ICU
[2017-07-27 18:00] LABS: MCH 34.3 pg (25.7-33.7); MEAN CELL VOLUME 103.9 fl (80-96); MEAN PLT VOLUME 8.9 fl (7.5-11.1); PLATELET COUNT 162 K/MM3 (134-434); RDW 19.1 % (11.6-15.6)
[2017-07-27] MEDS ORDERED: DESMOPRESSIN ACETATE 4 MCG/ML AMP IVPB ONE (18:21)
--- NOTE | 2017-07-27 18:23 | PN ---
Progress Note (short form) - Note Progress Note: Renal follow up for ESRD on Hd Pt seen and examined in the ICU s/p ORIF of left hip 700cc of blood loss in OR s/p 2 PRBC in the OR getting 3rd unit now in ICU BP low, HR elevated pt is awake and alert Vital Signs Temperature 97.8 F 07/27/17 14:05 Pulse Rate 99 H 07/27/17 14:05 Respiratory Rate 16 07/27/17 14:05 Blood Pressure 90/54 07/27/17 14:05 O2 Sat by Pulse Oximetry (%) 94 L 07/27/17 17:04 Intake & Output 07/24/17 07/25/17 07/26/17 07/27/17 23:59 23:59 23:59 23:59 Intake Total 320 180 0151 1650 Output Total 1500 Balance 243 690 3581 150 Weight 89.176 kg 89.074 kg NAD awake and alert tachycardic CTA 1+ LE edema CBC, BMP 07/27/17 17:30 07/27/17 06:25 Current Medications Acetaminophen (Tylenol -) 325 mg PO Q4H PRN PRN Reason: PAIN Last Admin: 07/22/17 23:32 Dose: 325 mg Bisacodyl (Dulcolax Suppository -) 10 mg MA DAILY PRN PRN Reason: CONSTIPATION Chlorhexidine Gluconate (Hibiclens For Decolonization -) 1 applic TP HS [facility] Cinacalcet (Sensipar -) 30 mg PO MoWeFr@1000 [facility] Last Admin: 07/27/17 11:22 Dose: Not Given Collagenase (Santyl -) 1 applic TP DAILY [facility] Last Admin: 07/27/17 11:22 Dose: Not Given Desmopressin Acetate (Ddavp Injection -) 20 mcg IVPB ONCE ONE Stop: 07/27/17 18:22 Furosemide (Lasix -) 80 mg PO DAILY [facility] Last Admin: 07/27/17 11:21 Dose: Not Given Heparin Sodium (Porcine) (Heparin -) 5,000 unit SQ BID [facility] Last Admin: 07/26/17 17:09 Dose: Not Given Hydromorphone HCl (Dilaudid Injection -) 0.5 mg IVPUSH [id number] PRN PRN Reason: PAIN Last Admin: 07/27/17 11:45 Dose: 0.5 mg Vancomycin HCl 1,000 mg/ (Dextrose) 250 mls @ 250 mls/hr IVPB ONCE ONE PRN Reason: Protocol Stop: 07/28/17 18:25 Insulin Aspart (Novolog Mix 70/30 Vial) 6 units SQ AM [facility] Last Admin: 07/27/17 06:33 Dose: Not Given Insulin Aspart (Novolog Mix 70/30 Vial) 8 units SQ HS [facility] Last Admin: 07/27/17 00:01 Dose: Not Given Insulin Aspart (Novolog Vial Sliding Scale -) 1 vial SQ BIDAC [facility] PRN Reason: Protocol Last Admin: 07/27/17 17:00 Dose: Not Given Labetalol HCl (Normodyne -) 400 mg PO BID [facility] Last Admin: 07/27/17 11:21 Dose: Not Given Levothyroxine Sodium 200 mcg/ (Levothyroxine Sodium 25 mcg) 225 mcg PO DAILY@ 0700 [facility] Last Admin: 07/27/17 06:30 Dose: 225 mcg Magnesium Oxide (Mag-Ox -) 400 mg PO DAILY [facility] Last Admin: 07/27/17 11:21 Dose: Not Given Mupirocin (Bactroban Ointment (For Decolonization) -) 1 applic NS BID [facility] Stop: 08/01/17 21:59 Ondansetron HCl (Zofran Injection) 4 mg IVPUSH Q6H PRN PRN Reason: NAUSEA AND/OR VOMITING Oxycodone HCl (Roxicodone -) 5 mg PO Q4H PRN PRN Reason: PAIN LEVEL 6-10 Last Admin: 07/22/17 23:32 Dose: 5 mg Pantoprazole Sodium (Protonix -) 20 mg PO DAILY [facility] Last Admin: 07/27/17 11:21 Dose: Not Given Polyethylene Glycol (Miralax (For Daily Use) -) 17 gm PO DAILY PRN PRN Reason: CONSTIPATION Sevelamer Carbonate (Renvela -) 800 mg PO TIDCM [facility] Last Admin: 07/27/17 11:22 Dose: Not Given 82 year old woman with PMhx of ESRD no HD x 7 years, hypertension, DM who presented with Right LE pain and weakness with some chronic swelling of the LE and admitted for degenerative changes of the right hip. 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
[2017-07-27] MEDS ORDERED: DESMOPRESSIN ACETATE 20 MCG in SODIUM CHLORIDE 50 ML IVPB ONE (18:30)
[2017-07-27] MEDS ORDERED: PT OWN MED DRAWER 7, Y5N ONE (19:52)
[2017-07-27] MEDS ORDERED: ACETAMINOPHEN 325 MG TABLET (FP) PO ONE (20:05)
[2017-07-27] MEDS: oxyCODONE HCL 5 MG TABLET PO PRN (20:16)
[2017-07-27] MEDS: MUPIROCIN 2% TOPICAL OINTMENT FOR DECOLONIZATION NS SCH (21:10)
[2017-07-27] MEDS: CHLORHEXIDINE GLUCONATE 4% CLEANSER FOR DECOLONIZATION TP SCH (21:11)
[2017-07-27] MEDS: HEPARIN NA (PORCINE) 5,000 UNITS/ML 1ML VIAL SQ SCH (21:11)
--- NOTE | 2017-07-27 21:17 | CONSULT ---
Consult - text type - Consultation Consultation Note: PULM/CCM Pt seen and examined in ICU CC: post op total R hip replacement HPI: Briefly Ms Yoon is an 82F w/ hx of DM, OA, ESRD on HD, and recent RLE cellulitis in 02/2017, now admitted on 07/22 with right hip, knee, and ankle pain for 2 days. Found to have failure previous Teresa Gamma nail from previous surgery (2009. Today she went for total R hip replacement. 700cc of blood loss intraop. Extubated in PACU. Transferred to ICU for post op care. Hemodynamically stable. Significant output from WILDA drain. Receiving 1 PRBC and DDAVP now. Past Medical History Cardio/Vascular AFIB (paroxysmal),CAD,HTN Renal/ Renal Failure,Hemodialysis Endocrine Diabetes Mellitus Past Surgical History Past Surgical History Joint Replacement (rt hip- 2009, ankle fracture , s/p plates-- 2005) Smoking History Smoking history Never smoked Aproximately how many 0 cigarettes per day Alcohol/Substance Use Hx Alcohol Use No Ambulatory Orders Ascorbic Acid [Vitamin C -] 500 mg PO DAILY 07/22/17 Aspirin [ASA -] 81 mg PO DAILY 07/22/17 Cholecalciferol (Vitamin D3) [D-2000] 2,000 unit PO DAILY 07/22/17 Cinacalcet HCl [Sensipar] 30 mg PO ASDIR 07/22/17 Collagenase Clostridium Hist. [Santyl] 90 gm TP DAILY 07/22/17 Fish Oil/Borage/Flax/Om3,6,9#1 [[place] 3-6-9 1,200 mg Softgel] 1,200 mg PO BID Furosemide [Lasix] 80 mg PO DAILY 07/22/17 Insulin Aspart Prot/Insuln Asp [Novolog Mix 70-30 Vial] 6 unit SQ AM 07/22/17 Insulin Aspart Prot/Insuln Asp [Novolog Mix 70-30 Vial] 8 unit SQ HS 07/22/17 Labetalol HCl 300 mg PO BID 07/22/17 Levothyroxine Sodium [Synthroid] 200 mcg PO AM 07/22/17 Magnesium Oxide 400 mg PO DAILY 07/22/17 Mv-Mn/FA/Vit K/Lycop/Lut/Coq10 [Daily Multivitamin Capsule] 1 each PO DAILY Pantoprazole Sodium [Protonix] 20 mg PO DAILY 07/22/17 Sevelamer Carbonate [Renvela] 800 mg PO TID 07/22/17 Vitamin A Palmitate [Vitamin A] 1 tab PO DAILY 07/22/17 Active Medications Acetaminophen (Tylenol -) 325 mg PO Q4H PRN PRN Reason: PAIN Last Admin: 07/22/17 23:32 Dose: 325 mg Bisacodyl (Dulcolax Suppository -) 10 mg IN DAILY PRN PRN Reason: CONSTIPATION Chlorhexidine Gluconate (Hibiclens For Decolonization -) 1 applic TP HS [facility] Last Admin: 07/27/17 21:11 Dose: 1 applic Cinacalcet (Sensipar -) 30 mg PO MoWeFr@1000 [facility] Last Admin: 07/27/17 11:22 Dose: Not Given Collagenase (Santyl -) 1 applic TP DAILY [facility] Last Admin: 07/27/17 11:22 Dose: Not Given Furosemide (Lasix -) 80 mg PO DAILY [facility] Last Admin: 07/27/17 11:21 Dose: Not Given Heparin Sodium (Porcine) (Heparin -) 5,000 unit SQ BID [facility] Last Admin: 07/27/17 21:11 Dose: Not Given Hydromorphone HCl (Dilaudid Injection -) 0.5 mg IVPUSH [id number] PRN PRN Reason: PAIN Last Admin: 07/27/17 11:45 Dose: 0.5 mg Vancomycin HCl 1,000 mg/ (Dextrose) 250 mls @ 250 mls/hr IVPB ONCE ONE PRN Reason: Protocol Stop: 07/28/17 18:25 Insulin Aspart (Novolog Mix 70/30 Vial) 6 units SQ AM [facility] Last Admin: 07/27/17 06:33 Dose: Not Given Insulin Aspart (Novolog Mix 70/30 Vial) 8 units SQ HS [facility] Last Admin: 07/27/17 21:14 Dose: Not Given Insulin Aspart (Novolog Vial Sliding Scale -) 1 vial SQ BIDAC [facility] PRN Reason: Protocol Last Admin: 07/27/17 17:00 Dose: Not Given Labetalol HCl (Normodyne -) 400 mg PO BID [facility] Last Admin: 07/27/17 11:21 Dose: Not Given Levothyroxine Sodium 200 mcg/ (Levothyroxine Sodium 25 mcg) 225 mcg PO DAILY@ 0700 [facility] Last Admin: 07/27/17 06:30 Dose: 225 mcg Magnesium Oxide (Mag-Ox -) 400 mg PO DAILY [facility] Last Admin: 07/27/17 11:21 Dose: Not Given Mupirocin (Bactroban Ointment (For Decolonization) -) 1 applic NS BID [facility] Stop: 08/01/17 21:59 Last Admin: 07/27/17 21:10 Dose: 1 applic Ondansetron HCl (Zofran Injection) 4 mg IVPUSH Q6H PRN PRN Reason: NAUSEA AND/OR VOMITING Oxycodone HCl (Roxicodone -) 5 mg PO Q4H PRN PRN Reason: PAIN LEVEL 6-10 Last Admin: 07/27/17 20:16 Dose: 5 mg Pantoprazole Sodium (Protonix -) 20 mg PO DAILY [facility] Last Admin: 07/27/17 11:21 Dose: Not Given Polyethylene Glycol (Miralax (For Daily Use) -) 17 gm PO DAILY PRN PRN Reason: CONSTIPATION Sevelamer Carbonate (Renvela -) 800 mg PO TIDCM [facility] Last Admin: 07/27/17 19:56 Dose: 800 mg ROS: 10 pt Review unrevealing except as per HPI. PE: GEn: awake, alert, very pleasant eld woman INAD in bed HEENT: PERRL, EOMI, NCAT PULM: clear anterior, diminished bases CV: RRR, no m/r/g appreciated ABD: Soft, NT, ND EXT: Splinted R leg, dressing CDI, WILDA with mainly serous drainage, no exudate, 2 + DP pulses bilat NEURO: A & O x3, no focal neuro deficit A/ 82 y/o woman PO Day 0 s/p removal of R hip hardware, trans-trochanteric R total hip replacement P/ -monitor WILDA output- it is common for pts to have large amounts of drainage -volume resuscitation with PRBC -s/p dose of DDAVP -hold anti-htn and anti-coag overnight, consider restarting in am if h/H stable , improved hemodynamics -HD as per renal, booked for HD in am DVT: SCD's---SQH in am ICU monitoring overnight if H/H stable then tele in am Sascha Hurt ACNP [id number] [id number]
--- NOTE | 2017-07-27 23:16 | PN ---
Progress Note, Physician Chief Complaint: Pt is A&Ox3. She denies chest pain or dyspnea.(+) mild-moderate pain at site of leg fracture, especially when she moves. History of Present Illness: 82yo white woman with PM hx ESRD on HD, OA p/w R hip, R knee, and R ankle pain that she relates to her arthritis since yesterday evening. Denies trauma. States symptoms occurred after dinner last night when she felt her joints lock up. She has not been able to move since, called her sister this morning who went over and found that the patient was barely able to move due to the pain. Tried tylenol for the pain with minimal relief. Not overly exerting herself. Denies fevers, chills but reports that her LE is increasingly red. Her sister states her leg is as red as it was when she had cellulitis last in March. Denies CP, SOB, headache, focal weakness or numbness. Denies falls. - Current Medication List Current Medications: Active Medications Acetaminophen (Tylenol -) 325 mg PO Q4H PRN PRN Reason: PAIN Last Admin: 07/22/17 23:32 Dose: 325 mg Bisacodyl (Dulcolax Suppository -) 10 mg [place] DAILY PRN PRN Reason: CONSTIPATION Chlorhexidine Gluconate (Hibiclens For Decolonization -) 1 applic TP HS [facility] Last Admin: 07/27/17 21:11 Dose: 1 applic Cinacalcet (Sensipar -) 30 mg PO MoWeFr@1000 [facility] Last Admin: 07/27/17 11:22 Dose: Not Given Collagenase (Santyl -) 1 applic TP DAILY [facility] Last Admin: 07/27/17 11:22 Dose: Not Given Furosemide (Lasix -) 80 mg PO DAILY [facility] Last Admin: 07/27/17 11:21 Dose: Not Given Heparin Sodium (Porcine) (Heparin -) 5,000 unit SQ BID [facility] Last Admin: 07/27/17 21:11 Dose: Not Given Hydromorphone HCl (Dilaudid Injection -) 0.5 mg IVPUSH [id number] PRN PRN Reason: PAIN Last Admin: 07/27/17 11:45 Dose: 0.5 mg Vancomycin HCl 1,000 mg/ (Dextrose) 250 mls @ 250 mls/hr IVPB ONCE ONE PRN Reason: Protocol Stop: 07/28/17 18:25 Insulin Aspart (Novolog Mix 70/30 Vial) 6 units SQ AM [facility] Last Admin: 07/27/17 06:33 Dose: Not Given Insulin Aspart (Novolog Mix 70/30 Vial) 8 units SQ HS [facility] Last Admin: 07/27/17 21:14 Dose: Not Given Insulin Aspart (Novolog Vial Sliding Scale -) 1 vial SQ BIDAC [facility] PRN Reason: Protocol Last Admin: 07/27/17 17:00 Dose: Not Given Labetalol HCl (Normodyne -) 400 mg PO BID [facility] Last Admin: 07/27/17 11:21 Dose: Not Given Levothyroxine Sodium 200 mcg/ (Levothyroxine Sodium 25 mcg) 225 mcg PO DAILY@ 0700 [facility] Last Admin: 07/27/17 06:30 Dose: 225 mcg Magnesium Oxide (Mag-Ox -) 400 mg PO DAILY [facility] Last Admin: 07/27/17 11:21 Dose: Not Given Mupirocin (Bactroban Ointment (For Decolonization) -) 1 applic NS BID [facility] Stop: 08/01/17 21:59 Last Admin: 07/27/17 21:10 Dose: 1 applic Ondansetron HCl (Zofran Injection) 4 mg IVPUSH Q6H PRN PRN Reason: NAUSEA AND/OR VOMITING Oxycodone HCl (Roxicodone -) 5 mg PO Q4H PRN PRN Reason: PAIN LEVEL 6-10 Last Admin: 07/27/17 20:16 Dose: 5 mg Pantoprazole Sodium (Protonix -) 20 mg PO DAILY [facility] Last Admin: 07/27/17 11:21 Dose: Not Given Polyethylene Glycol (Miralax (For Daily Use) -) 17 gm PO DAILY PRN PRN Reason: CONSTIPATION Sevelamer Carbonate (Renvela -) 800 mg PO TIDCM [facility] Last Admin: 07/27/17 19:56 Dose: 800 mg - Objective Vital Signs: Vital Signs Temperature 98.1 F 07/27/17 17:36 Pulse Rate 114 H 07/27/17 21:00 Respiratory Rate 20 07/27/17 21:00 Blood Pressure 93/51 07/27/17 21:00 O2 Sat by Pulse Oximetry (%) 94 L 07/27/17 20:35 Constitutional: Yes: Calm Eyes: Yes: WNL HENT: Yes: WNL Neck: Yes: WNL Cardiovascular: Yes: Tachycardia Respiratory: Yes: Regular ...Rectal Exam: Yes: Deferred Genitourinary: No: Anuria Breast(s): Yes: WNL Musculoskeletal: Yes: Joint Stiffness Extremities: Yes: Cool Edema: No Peripheral Pulses WNL: Yes Integumentary: Yes: Erythema Wound/Incision: Yes: Dressing Dry and Intact Neurological: Yes: WNL Psychiatric: Yes: WNL Labs: CBC, BMP 07/27/17 17:30 07/27/17 06:25 INR, PTT INR 1.22 (0.82-1.09) H 07/27/17 06:25 Abnormal Lab Results 07/26/17 07/27/17 07/27/17 19:30 06:25 06:25 WBC RBC 3.09 L Hgb Hct MCV 106.3 H MCH 35.6 H RDW 15.8 H PT with INR 13.80 H INR 1.22 H Potassium Anion Gap BUN Creatinine Random Glucose Calcium Total Bilirubin Alkaline Phosphatase Total Protein Albumin Crossmatch See Detail 07/27/17 07/27/17 07/28/17 06:25 17:30 01:30 WBC 13.0 H D RBC 2.83 L 2.86 L Hgb 9.7 L D 9.6 L Hct 29.4 L 27.4 L MCV 103.9 H MCH 34.3 H RDW 19.1 H D 21.1 H D PT with INR INR Potassium Anion Gap 6 L BUN 36 H D Creatinine 4.1 H D Random Glucose Calcium 7.8 L Total Bilirubin 1.2 H Alkaline Phosphatase 229 H D Total Protein 6.1 L Albumin 2.1 L Crossmatch 07/28/17 01:30 WBC RBC Hgb Hct MCV MCH RDW PT with INR INR Potassium 5.7 H D Anion Gap BUN 47 H D Creatinine 4.9 H Random Glucose 126 H D Calcium 7.3 L Total Bilirubin Alkaline Phosphatase Total Protein Albumin Crossmatch - ....Imaging Other: Image Reviewed (telemetry: sinus tachycardia) Problem List - Problems (1) Systolic and diastolic CHF w/reduced LV function, NYHA class 4 Assessment/Plan: Recommend changing labetolol to carvedilol. Would eventually add lisinopril if BP allows (systolic CHF; DM). Code(s): I50.40 - UNSP COMBINED SYSTOLIC AND DIASTOLIC (CONGESTIVE) HRT FAIL (2) Atrial fibrillation Assessment/Plan: On beta blockers. Hx of bleeding with ?warfarin in the past, as well as adverse reaction to clopidogrel. She has been on ASA for years. 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 (7) CAD (coronary artery disease) Code(s): I25.10 - ATHSCL HEART DISEASE OF [place] CORONARY ARTERY W/O ANG PCTRS (8) Diabetes 1.5, managed as type 1 Code(s): E10.9 - TYPE 1 DIABETES MELLITUS WITHOUT COMPLICATIONS (9) ESRD (end stage renal disease) on dialysis Code(s): N18.6 - END STAGE RENAL DISEASE; Z99.2 - DEPENDENCE ON RENAL DIALYSIS (10) Hypertension Code(s): I10 - ESSENTIAL (PRIMARY) HYPERTENSION (11) Aortic stenosis Assessment/Plan: Workup in the future for what is likely now severe aortic stenosis (moderate in 2016) combined with severely reduced LVEF in the setting of coronary artery disease (s/p RCA stent 2016). Denies chest pain, but her niece says that pt has been having increasingly severe dyspnea and "lips turn blue" over the past 2-3 months with even mild physical exertion. Code(s): I35.0 - NONRHEUMATIC AORTIC (VALVE) STENOSIS (12) Hyperparathyroidism Code(s): E21.3 - HYPERPARATHYROIDISM, UNSPECIFIED (13) S/P hip replacement Assessment/Plan: avoid excessive dehydration. Blood loss -->2 units PRBCs janine-op, and awaiting a 3rd unit. Avoid excessive fluid removal with hemodialysis. Hold antihypertensives. Careful pain management choices with medications. Code(s): Z96.649 - PRESENCE OF UNSPECIFIED ARTIFICIAL HIP JOINT
[2017-07-28 01:49] LABS: BASOPHIL 0.5 % (0-2.0); EOSINOPHIL 0.7 % (0-4.5); MCH 33.4 pg (25.7-33.7); MCHC 34.9 g/dl (32.0-36.0); MEAN CELL VOLUME 95.7 fl (80-96); MEAN PLT VOLUME 8.9 fl (7.5-11.1); NEUTROPHILS 80.8 % (42.8-82.8); PLATELET COUNT 147 K/MM3 (134-434); RDW 21.1 % (11.6-15.6); WHITE BLOOD COUNT 9.6 K/mm3 (4.0-10.0)
[2017-07-28] MEDS: LACTATED RINGERS SOLUTION 1000 ML INFUS.BAG IV PRN ×2 (02:00→05:00)
[2017-07-28] MEDS: oxyCODONE HCL 5 MG TABLET PO PRN ×2 (02:09→21:19)
[2017-07-28] MEDS: ACETAMINOPHEN 325 MG TABLET (FP) PO PRN ×3 (02:09→21:20)
[2017-07-28 02:12] LABS: ANION GAP 9 (8-16); CALCIUM 7.3 mg/dL (8.5-10.1); CO2 28 mmol/L (21-32); CREATININE 4.9 mg/dL (0.55-1.02); GLUCOSE,RANDOM 126 mg/dL (74-106)
[2017-07-28 02:31] LABS: ANISOCYTOSIS 1+; HYPOCHROMIA 1+
[2017-07-28 06:17] LABS: MCH 33.7 pg (25.7-33.7); MCHC 35.1 g/dl (32.0-36.0); MEAN CELL VOLUME 95.9 fl (80-96); MEAN PLT VOLUME 8.8 fl (7.5-11.1); PLATELET COUNT 155 K/MM3 (134-434); RDW 21.1 % (11.6-15.6)
[2017-07-28 06:40] LABS: ANION GAP 7 (8-16); CALCIUM 7.2 mg/dL (8.5-10.1); CO2 29 mmol/L (21-32); CREATININE 4.9 mg/dL (0.55-1.02); GLUCOSE,RANDOM 127 mg/dL (74-106); MAGNESIUM 1.7 mg/dL (1.8-2.4); PHOSPHOROUS 3.9 mg/dL (2.5-4.9)
[2017-07-28] MEDS ORDERED: LEVOTHYROXINE NA 25 MCG TABLET (FP) ONE ×2 (06:48→06:49)
[2017-07-28] MEDS ORDERED: LEVOTHYROXINE NA 100 MCG TABLET (FP) ONE ×2 (06:48→06:49)
[2017-07-28] MEDS: LEVOTHYROXINE 200 MCG, LEVOTHYROXINE 25 MCG PO SCH (06:50)
--- NOTE | 2017-07-28 07:07 | PN ---
Progress Note (short form) - Note Progress Note: PULM/CCM Pt seen and examined in ICU 24Hr: admitted overnight pain controlled required volume and blood WILDA drainage bloody but decreasing in volume Vital Signs Temp 98.3 F 07/28/17 05:00 Pulse 107 H 07/28/17 05:00 Resp 17 07/28/17 03:00 BP 100/57 07/28/17 05:00 Pulse Ox 94 L 07/27/17 20:35 Intake & Output 07/27/17 07/27/17 07/28/17 11:59 23:59 11:59 Intake Total 1250 1100 1750 Output Total 700 1100 160 Balance 550 0 1590 Weight 91.285 kg Intake: IV 888 36 6960 Peripheral IV 1000 IVPB 100 Oral 0 250 400 Blood Product 350 350 Packed Cells 350 350 Output: Drainage 850 160 Right Hip 600 160 Urine 250 Estimated Blood Loss 700 Other: Voiding Method Bedpan Weight Measurement Method Built in [facility] CBCD WBC 10.0 K/mm3 (4.0-10.0) 07/28/17 05:50 RBC 2.71 M/mm3 (3.60-5.2) L 07/28/17 05:50 Hgb 9.1 GM/dL (10.7-15.3) L 07/28/17 05:50 Hct 26.0 % (32.4-45.2) L 07/28/17 05:50 MCV 95.9 fl (80-96) 07/28/17 05:50 MCHC 35.1 g/dl (32.0-36.0) 07/28/17 05:50 RDW 21.1 % (11.6-15.6) H 07/28/17 05:50 Plt Count 155 K/MM3 (134-434) 07/28/17 05:50 MPV 8.8 fl (7.5-11.1) 07/28/17 05:50 CMP Sodium 138 mmol/L (136-145) 07/28/17 05:50 Potassium 5.5 mmol/L (3.5-5.1) H 07/28/17 05:50 Chloride 102 mmol/L (98-107) 07/28/17 05:50 Carbon Dioxide 29 mmol/L (21-32) 07/28/17 05:50 Anion Gap 7 (8-16) L 07/28/17 05:50 BUN 48 mg/dL (7-18) H 07/28/17 05:50 Creatinine 4.9 mg/dL (0.55-1.02) H 07/28/17 05:50 Creat Clearance w eGFR 10.47 (>60) 07/27/17 06:25 Calcium 7.2 mg/dL (8.5-10.1) L 07/28/17 05:50 Total Bilirubin 1.2 mg/dL (0.2-1.0) H 07/27/17 06:25 AST 29 U/L (15-37) D 07/27/17 06:25 ALT 13 U/L (12-78) 07/27/17 06:25 Alkaline Phosphatase 229 U/L (45-117) H D 07/27/17 06:25 Total Protein 6.1 g/dl (6.4-8.2) L 07/27/17 06:25 Albumin 2.1 g/dl (3.4-5.0) L 07/27/17 06:25 PE: GEn: awake, alert, very pleasant eld woman INAD in bed HEENT: PERRL, EOMI, NCAT PULM: clear anterior, diminished bases CV: RRR, no m/r/g appreciated ABD: Soft, NT, ND EXT: Splinted R leg, dressing CDI, WILDA with mainly serous drainage, no exudate, 2 + DP pulses bilat NEURO: A & O x3, no focal neuro deficit A/ 82 y/o woman PO Day 0 s/p removal of R hip hardware, trans-trochanteric R total hip replacement P/ -monitor WILDA output- it is common for pts to have large amounts of drainage -volume resuscitation with PRBC -s/p dose of DDAVP -hold anti-htn and anti-coag overnight, consider restarting in am if h/H stable , improved hemodynamics -HD as per renal, booked for HD this morning DVT: SCD's---SQH in am Ok for med surg if H/H stable then tele in am Sascha Hurt ACNP [id number]
[2017-07-28] MEDS: INSULIN SLIDING SCALE (NOVOLOG) 1 VIAL SQ SCH ×2 (07:25→17:50)
[2017-07-28] MEDS: INSULIN (NOVOLOG MIX 70/30) 100 UNITS/ML MDV SQ SCH ×2 (08:00→21:19)
--- NOTE | 2017-07-28 08:08 | PN ---
Progress Note (short form) - Note Progress Note: Anesthesia post op Pt seen and examined S:alert and awake mild pain O: Vital Signs Temperature 98.3 F 07/28/17 05:00 Pulse Rate 103 H 07/28/17 07:00 Respiratory Rate 07/28/17 07:00 Blood Pressure 104/51 07/28/17 07:00 O2 Sat by Pulse Oximetry (%) 94 L 07/27/17 20:35 CBC, BMP 07/28/17 05:50 07/28/17 05:50 Current Active Problems Aortic stenosis (Acute) Atrial fibrillation (Acute) Cellulitis and abscess of right lower extremity (Acute) Congestive heart failure (CHF) (Acute) Diabetes (Acute) Fever (Acute) Hip pain, right (Acute) Hyperparathyroidism (Acute) 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
[2017-07-28] MEDS ORDERED: VANCOMYCIN 1,000 MG in DEXTROSE 5%-WATER - 250 ML IVPB ONE ×2 (08:12→17:26)
--- NOTE | 2017-07-28 08:29 | PN ---
Progress Note (short form) - Note Progress Note: Renal follow up for ESRD on Hd Pt seen and examined in the ICU s/p ORIF yesterday s/p 4 prbc transfusion has bleeding in WILDA drain no sob, chest pain BP improved Vital Signs Temperature 98.3 F 07/28/17 05:00 Pulse Rate 103 H 07/28/17 07:00 Respiratory Rate 07/28/17 07:00 Blood Pressure 104/51 07/28/17 07:00 O2 Sat by Pulse Oximetry (%) 94 L 07/27/17 20:35 Intake & Output 07/25/17 07/26/17 07/27/17 07/28/17 23:59 23:59 23:59 23:59 Intake Total 860 1120 2350 1750 Output Total 1800 160 Balance 860 5984 381 2329 Weight 89.074 kg 91.285 kg NAD awake and alert tachycardic CTA 1+ LE edema CBC, BMP 07/28/17 05:50 07/28/17 05:50 Laboratory Tests 07/28/17 05:50 Calcium 7.2 L Phosphorus 3.9 Magnesium 1.7 L D Current Medications Acetaminophen (Tylenol -) 325 mg PO Q4H PRN PRN Reason: PAIN Last Admin: 07/28/17 02:09 Dose: 325 mg Bisacodyl (Dulcolax Suppository -) 10 mg [place] DAILY PRN PRN Reason: CONSTIPATION Chlorhexidine Gluconate (Hibiclens For Decolonization -) 1 applic TP HS [facility] Last Admin: 07/27/17 21:11 Dose: 1 applic Cinacalcet (Sensipar -) 30 mg PO MoWeFr@1000 [facility] Last Admin: 07/27/17 11:22 Dose: Not Given Collagenase (Santyl -) 1 applic TP DAILY [facility] Last Admin: 07/27/17 11:22 Dose: Not Given Epoetin Cesar (Epogen -) 10,000 units IVPUSH ONCE ONE Stop: 07/28/17 08:11 Furosemide (Lasix -) 80 mg PO DAILY [facility] Last Admin: 07/27/17 11:21 Dose: Not Given Heparin Sodium (Porcine) (Heparin -) 5,000 unit SQ BID [facility] Last Admin: 07/27/17 21:11 Dose: Not Given Hydromorphone HCl (Dilaudid Injection -) 0.5 mg IVPB Q6H PRN PRN Reason: PAIN Vancomycin HCl 1,000 mg/ (Dextrose) 250 mls @ 250 mls/hr IVPB ONCE ONE PRN Reason: Protocol Stop: 07/28/17 18:25 Vancomycin HCl 1,000 mg/ (Dextrose) 250 mls @ 250 mls/hr IVPB ONCE ONE PRN Reason: Protocol Stop: 07/28/17 09:11 Insulin Aspart (Novolog Mix 70/30 Vial) 6 units SQ AM [facility] Last Admin: 07/27/17 06:33 Dose: Not Given Insulin Aspart (Novolog Mix 70/30 Vial) 8 units SQ HS [facility] Last Admin: 07/27/17 21:14 Dose: Not Given Insulin Aspart (Novolog Vial Sliding Scale -) 1 vial SQ BIDAC [facility] PRN Reason: Protocol Last Admin: 07/28/17 07:25 Dose: Not Given Labetalol HCl (Normodyne -) 400 mg PO BID [facility] Last Admin: 07/27/17 11:21 Dose: Not Given Lactated Ringer's (Lactated Ringers Solution) 1,000 ml IV Q2H PRN PRN Reason: MAP<65mm Hg OR SBP <90 Last Admin: 07/28/17 05:00 Dose: 1,000 ml Levothyroxine Sodium 200 mcg/ (Levothyroxine Sodium 25 mcg) 225 mcg PO DAILY@ 0700 [facility] Last Admin: 07/28/17 06:50 Dose: 225 mcg Magnesium Oxide (Mag-Ox -) 400 mg PO DAILY [facility] Last Admin: 07/27/17 11:21 Dose: Not Given Mupirocin (Bactroban Ointment (For Decolonization) -) 1 applic NS BID [facility] Stop: 08/01/17 21:59 Last Admin: 07/27/17 21:10 Dose: 1 applic Ondansetron HCl (Zofran Injection) 4 mg IVPUSH Q6H PRN PRN Reason: NAUSEA AND/OR VOMITING Oxycodone HCl (Roxicodone -) 5 mg PO Q4H PRN PRN Reason: PAIN LEVEL 6-10 Last Admin: 07/28/17 02:09 Dose: 5 mg Pantoprazole Sodium (Protonix -) 20 mg PO DAILY [facility] Last Admin: 07/27/17 11:21 Dose: Not Given Polyethylene Glycol (Miralax (For Daily Use) -) 17 gm PO DAILY PRN PRN Reason: CONSTIPATION Sevelamer Carbonate (Renvela -) [address] Last Admin: 07/27/17 19:56 Dose: 800 mg 82 year old woman with PMhx of ESRD no HD x 7 years, hypertension, DM who presented with Right LE pain and weakness with some chronic swelling of the LE and admitted for degenerative changes of the right hip. 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
[2017-07-28] MEDS ORDERED: HYDROmorphone HCL CARPU-JECT 2 MG/1 ML DISP.SYRIN ONE (08:47)
[2017-07-28] MEDS: SEVELAMER CARBONATE 800 MG TAB (FP) PO SCH ×3 (08:51→17:50)
[2017-07-28] MEDS: HYDROmorphone HCL CARPU-JECT 1 MG/1 ML DISP.SYRIN IVPB PRN (08:52)
[2017-07-28] MEDS: MUPIROCIN 2% TOPICAL OINTMENT FOR DECOLONIZATION NS SCH ×2 (09:42→21:18)
[2017-07-28] MEDS: MAGNESIUM OXIDE 400 MG TABLET (FP) PO SCH (09:44)
[2017-07-28] MEDS: HEPARIN NA (PORCINE) 5,000 UNITS/ML 1ML VIAL SQ SCH ×2 (09:48→21:18)
[2017-07-28] MEDS: PANTOPRAZOLE 20 MG TABLET (FP) PO SCH (09:48)
[2017-07-28] MEDS ORDERED: EPOETIN ALFA 10,000 UNIT/1 ML VIAL IVPUSH ONE (10:00)
[2017-07-28] MEDS: FUROSEMIDE 40 MG TABLET (FP) PO SCH (10:00)
[2017-07-28] MEDS: ALBUMIN HUMAN 25% 12.5 GM/50 ML VIAL IVPB SCH ×4 (10:15→12:45)
--- NOTE | 2017-07-28 10:18 | PN ---
Progress Note, Physician History of Present Illness: 82F w/ hx of DM, OA, ESRD on HD, and recent RLE cellulitis in 02/2017 presenting with right hip, knee, and ankle pain for 2 days. Per patient, she was in her USOH until 2 days ago when she was ready to go to bed, and her right leg began significantly hurting her. She stated that it locked up, and she was unable to move it due to pain. When her daughter came over and saw her, she decided to take her to the hospital. Pt reports a history of intermittent right leg pain which she attributes to her OA which is usually controlled with tylenol , but she reports that this pain was worse than she ever experienced. She endorses a right heel ulcer for which she sees Dr. Sinclair and receives wound care. She denies fevers, chills, numbness, weakness, chest pain, SOB, abdominal pain, n/v/d/c, and dysuria. Of note, pt was admitted for RLE cellulitis and ulcer in 02/2017. Wound cultures grew E. coli and staph coagulase negative. Pt was successfully treated with vancomycin and levaquin. PMH Atrial fibrillation Bare metal stent of ostial LCx April 01, 2015 Dr. Elizabeth CAD - mLAD 30% , oLCx 90%, RPDA 40% March 05, 2015 Dr. Elizabeth Diabetes mellitus, type II 1997 Dialysis 2010 End stage renal disease Hypertension Hypothyroidism Mildly reduced EF 48% February 2016 Moderate mean PG 23 mmHg February 2016 Severe GI bleed 2006 - Current Medication List Current Medications: Active Medications Acetaminophen (Tylenol -) 325 mg PO Q4H PRN PRN Reason: PAIN Last Admin: 07/28/17 02:09 Dose: 325 mg Bisacodyl (Dulcolax Suppository -) 10 mg [place] DAILY PRN PRN Reason: CONSTIPATION Chlorhexidine Gluconate (Hibiclens For Decolonization -) 1 applic TP HS [facility] Last Admin: 07/27/17 21:11 Dose: 1 applic Cinacalcet (Sensipar -) 30 mg PO MoWeFr@1000 [facility] Last Admin: 07/27/17 11:22 Dose: Not Given Collagenase (Santyl -) 1 applic TP DAILY [facility] Last Admin: 07/27/17 11:22 Dose: Not Given Furosemide (Lasix -) 80 mg PO DAILY [facility] Last Admin: 12/01/17 11:21 Dose: Not Given Heparin Sodium (Porcine) (Heparin -) 5,000 unit SQ BID [facility] Last Admin: 07/28/17 09:48 Dose: 5,000 unit Hydromorphone HCl (Dilaudid Injection -) 0.5 mg IVPB Q6H PRN PRN Reason: PAIN Last Admin: 07/28/17 08:52 Dose: 0.5 mg Insulin Aspart (Novolog Mix 70/30 Vial) 6 units SQ AM [facility] Last Admin: 07/28/17 08:00 Dose: Not Given Insulin Aspart (Novolog Mix 70/30 Vial) 8 units SQ HS [facility] Last Admin: 07/27/17 21:14 Dose: Not Given Insulin Aspart (Novolog Vial Sliding Scale -) 1 vial SQ BIDAC [facility] PRN Reason: Protocol Last Admin: 07/28/17 07:25 Dose: Not Given Lactated Ringer's (Lactated Ringers Solution) 1,000 ml IV Q2H PRN PRN Reason: MAP<65mm Hg OR SBP <90 Last Admin: 07/28/17 05:00 Dose: 1,000 ml Levothyroxine Sodium 200 mcg/ (Levothyroxine Sodium 25 mcg) 225 mcg PO DAILY@ 0700 [facility] Last Admin: 07/28/17 06:50 Dose: 225 mcg Magnesium Oxide (Mag-Ox -) 400 mg PO DAILY [facility] Last Admin: 07/28/17 09:44 Dose: 400 mg Mupirocin (Bactroban Ointment (For Decolonization) -) 1 applic NS BID [facility] Stop: 08/01/17 21:59 Last Admin: 07/28/17 09:42 Dose: 1 applic Ondansetron HCl (Zofran Injection) 4 mg IVPUSH Q6H PRN PRN Reason: NAUSEA AND/OR VOMITING Oxycodone HCl (Roxicodone -) 5 mg PO Q4H PRN PRN Reason: PAIN LEVEL 6-10 Last Admin: 07/28/17 02:09 Dose: 5 mg Pantoprazole Sodium (Protonix -) 20 mg PO DAILY [facility] Last Admin: 07/28/17 09:48 Dose: 20 mg Polyethylene Glycol (Miralax (For Daily Use) -) 17 gm PO DAILY PRN PRN Reason: CONSTIPATION Sevelamer Carbonate (Renvela -) 800 mg PO TIDCM [facility] Last Admin: 07/28/17 08:51 Dose: 800 mg - Objective Vital Signs: Vital Signs Temperature 98.4 F 07/28/17 09:00 Pulse Rate 103 H 07/28/17 10:13 Respiratory Rate 18 07/28/17 10:00 Blood Pressure 96/48 07/28/17 10:00 O2 Sat by Pulse Oximetry (%) 91 L 07/28/17 10:13 Eyes: Yes: WNL, Conjunctiva Clear, EOM Intact HENT: Yes: WNL, Atraumatic, Normocephalic Neck: Yes: WNL, Supple, Trachea Midline Cardiovascular: Yes: Pulse Irregular, S1, S2 Respiratory: Yes: WNL, Regular, CTA Bilaterally Gastrointestinal: Yes: WNL, Normal Bowel Sounds Genitourinary: Yes: WNL Musculoskeletal: Yes: WNL Extremities: Yes: WNL Edema: No Integumentary: Yes: WNL Neurological: Yes: WNL, Alert, Oriented ...Motor Strength: WNL Psychiatric: Yes: WNL Labs: CBC, BMP 07/28/17 05:50 07/28/17 05:50 INR, PTT INR 1.22 (0.82-1.09) H 07/27/17 06:25 Assessment/Plan s/p total R hip replacement. 700cc of blood loss intraop. Extubated in PACU. Transferred to ICU for post op care. Hemodynamically stable. Significant output from WILDA drain. Receiving 1 PRBC and DDAVP now. Atrial fibrillation Bare metal stent of ostial LCx April 01, 2015 Dr. Elizabeth CAD - mLAD 30% , oLCx 90%, RPDA 40% March 05, 2015 Dr. Elizabeth Diabetes mellitus, type II 1996 Dialysis 2010 End stage renal disease Hypertension Hypothyroidism Mildly reduced EF 48% February 2016 Moderate mean PG 23 mmHg February 2016 Severe GI bleed 2006 Plan cont pain control dvt plx and supportive rx cc time 35 min
--- NOTE | 2017-07-28 14:42 | PN ---
Progress Note (short form) - Note Progress Note: Pt seen/ examined in icu. sister at bedside. s/p orif - hip pain under control. just came back from dialysis Vital Signs Temp 98 F 07/28/17 10:00 Pulse 98 H 07/28/17 14:00 Resp 18 07/28/17 14:00 BP 108/68 07/28/17 14:00 Pulse Ox 91 L 07/28/17 10:13 Intake & Output 07/27/17 07/28/17 07/28/17 23:59 11:59 23:59 Intake Total 1100 1750 Output Total 1100 160 Balance 0 1590 Weight 201 lb 4 oz Intake: IV 50 1000 Peripheral IV 1000 IVPB 100 Oral 250 400 Blood Product 350 Packed Cells 350 350 Output: Drainage 850 160 Right Hip 600 160 Urine 250 Other: Voiding Method Bedpan Indwelling Catheter Weight Measurement Method Built in [facility] Active Medications Acetaminophen (Tylenol -) 325 mg PO Q4H PRN PRN Reason: PAIN Last Admin: 07/28/17 02:09 Dose: 325 mg Albumin Human (Albumin Human 25%) 12.5 gm IVPB Q30M [facility] Last Admin: 07/28/17 12:45 Dose: Not Given Bisacodyl (Dulcolax Suppository -) 10 mg [place] DAILY PRN PRN Reason: CONSTIPATION Chlorhexidine Gluconate (Hibiclens For Decolonization -) 1 applic TP HS [facility] Last Admin: 07/27/17 21:11 Dose: 1 applic Cinacalcet (Sensipar -) 30 mg PO MoWeFr@1000 [facility] Last Admin: 07/27/17 11:22 Dose: Not Given Collagenase (Santyl -) 1 applic TP DAILY [facility] Last Admin: 07/27/17 11:22 Dose: Not Given Furosemide (Lasix -) 80 mg PO DAILY [facility] Last Admin: 07/28/17 10:00 Dose: Not Given Heparin Sodium (Porcine) (Heparin -) 5,000 unit SQ BID [facility] Last Admin: 07/28/17 09:48 Dose: 5,000 unit Hydromorphone HCl (Dilaudid Injection -) 0.5 mg IVPB Q6H PRN PRN Reason: PAIN Last Admin: 07/28/17 08:52 Dose: 0.5 mg Insulin Aspart (Novolog Mix 70/30 Vial) 6 units SQ AM [facility] Last Admin: 07/28/17 08:00 Dose: Not Given Insulin Aspart (Novolog Mix 70/30 Vial) 8 units SQ HS [facility] Last Admin: 07/27/17 21:14 Dose: Not Given Insulin Aspart (Novolog Vial Sliding Scale -) 1 vial SQ BIDAC [facility] PRN Reason: Protocol Last Admin: 07/28/17 07:25 Dose: Not Given Lactated Ringer's (Lactated Ringers Solution) 1,000 ml IV Q2H PRN PRN Reason: MAP<65mm Hg OR SBP <90 Last Admin: 07/28/17 05:00 Dose: 1,000 ml Levothyroxine Sodium 200 mcg/ (Levothyroxine Sodium 25 mcg) 225 mcg PO DAILY@ 0700 [facility] Last Admin: 07/28/17 06:50 Dose: 225 mcg Magnesium Oxide (Mag-Ox -) 400 mg PO DAILY [facility] Last Admin: 07/28/17 09:44 Dose: 400 mg Mupirocin (Bactroban Ointment (For Decolonization) -) 1 applic NS BID [facility] Stop: 08/01/17 21:59 Last Admin: 07/28/17 09:42 Dose: 1 applic Ondansetron HCl (Zofran Injection) 4 mg IVPUSH Q6H PRN PRN Reason: NAUSEA AND/OR VOMITING Oxycodone HCl (Roxicodone -) 5 mg PO Q4H PRN PRN Reason: PAIN LEVEL 6-10 Last Admin: 07/28/17 02:09 Dose: 5 mg Pantoprazole Sodium (Protonix -) 20 mg PO DAILY [facility] Last Admin: 07/28/17 09:48 Dose: 20 mg Polyethylene Glycol (Miralax (For Daily Use) -) 17 gm PO DAILY PRN PRN Reason: CONSTIPATION Sevelamer Carbonate (Renvela -) 800 mg PO TIDCM [facility] Last Admin: 07/28/17 12:49 Dose: 800 mg CBC, BMP 07/28/17 05:50 Microbiology 07/23/17 20:25 Blood Culture - Preliminary Blood - Peripheral Venous NO GROWTH OBTAINED AFTER 96 HOURS, INCUBATION TO CONTINUE FOR 1 DAYS. 07/23/17 20:00 Blood Culture - Preliminary Blood - Peripheral Venous NO GROWTH OBTAINED AFTER 96 HOURS, INCUBATION TO CONTINUE FOR 1 DAYS. Physical Exam Constitutional: Yes: No Distress/ comfortable Cardiovascular: Yes: Regular Rate and Rhythm Respiratory: Yes: Diminished at bases Gastrointestinal: Yes: Normal Bowel Sounds, Soft. No: Distention, Tenderness Edema: Yes Problem List - Problems (1) Hip pain, right Code(s): M25.551 - PAIN IN RIGHT HIP (2) CAD (coronary artery disease) Code(s): I25.10 - ATHSCL HEART DISEASE OF [place] CORONARY ARTERY W/O ANG PCTRS (3) Diabetes 1.5, managed as type 1 Code(s): E10.9 - TYPE 1 DIABETES MELLITUS WITHOUT COMPLICATIONS (4) Diabetic foot ulcer Code(s): E11.621 - TYPE 2 DIABETES MELLITUS WITH FOOT ULCER; L97.509 - NON- PRESSURE CHRONIC ULCER OTH PRT UNSP FOOT W UNSP SEVERITY (5) ESRD (end stage renal disease) on dialysis Code(s): N18.6 - END STAGE RENAL DISEASE; Z99.2 - DEPENDENCE ON RENAL DIALYSIS (6) Hypertension Code(s): I10 - ESSENTIAL (PRIMARY) HYPERTENSION (7) Hypothyroidism Code(s): E03.9 - HYPOTHYROIDISM, UNSPECIFIED (8) Venous (peripheral) insufficiency Code(s): I87.2 - VENOUS INSUFFICIENCY (CHRONIC) (PERIPHERAL) (9) Fever Code(s): R50.9 - FEVER, UNSPECIFIED Assessment/Plan PLAN intractable hip pain -- due to severe osteoarthritis, avascular necrosis per CT report -- had hip replacement in 2009- Dr Marquez -- better with Oxycodone -- s/p ORIF Fever -- isolated temp -- off antibiotics ESRD onHD -- HD - Sat -- not in volume overload -- just has hd done Chronic venous insufficiency -- not cellulitis Diabetic foot ulcer -- wound care eval -- continue with current wound treatment CAD/Paroxysmal AFib -- no AC due to h/o GI bleeding and pt had refused in the past -- overall stable. will follow. discussed with pts sister also who is at bedside.
[2017-07-28] MEDS: COLLAGENASE CLOSTRIDIUM HIST. 30 GRAMS TUBE TP SCH (15:36)
[2017-07-28] MEDS: CHLORHEXIDINE GLUCONATE 4% CLEANSER FOR DECOLONIZATION TP SCH (21:18)
[2017-07-29] MEDS: ACETAMINOPHEN 325 MG TABLET (FP) PO PRN (03:00)
[2017-07-29] MEDS: oxyCODONE HCL 5 MG TABLET PO PRN (03:00)
[2017-07-29] MEDS ORDERED: LEVOTHYROXINE NA 25 MCG TABLET (FP) ONE (06:33)
[2017-07-29] MEDS ORDERED: LEVOTHYROXINE NA 100 MCG TABLET (FP) ONE (06:33)
[2017-07-29] MEDS: LEVOTHYROXINE 200 MCG, LEVOTHYROXINE 25 MCG PO SCH (06:33)
[2017-07-29] MEDS: INSULIN SLIDING SCALE (NOVOLOG) 1 VIAL SQ SCH ×2 (07:00→17:00)
--- NOTE | 2017-07-29 08:30 | PN ---
Progress Note (short form) - Note Progress Note: Renal follow up for ESRD on Hd Pt seen and examined in the ICU awake and alert pain is better controlled today s/p dialysis yesterday w/o complication continues to have bloody drainage in WILDA no sob, chest pain, abd pain, N/V/D Vital Signs Temperature 98 F 07/29/17 02:00 Pulse Rate 105 H 07/29/17 06:00 Respiratory Rate 15 07/29/17 06:00 Blood Pressure 114/58 07/29/17 06:00 O2 Sat by Pulse Oximetry (%) 100 07/28/17 19:55 Intake & Output 07/26/17 07/27/17 07/28/17 07/29/17 23:59 23:59 23:59 23:59 Intake Total 1120 2350 3780 Output Total 1800 400 300 Balance 4889 191 3733 -300 Weight 89.074 kg 91.285 kg 88.7 kg NAD awake and alert tachycardic CTA 1+ LE edema CBC, BMP 07/28/17 05:50 07/28/17 14:00 Current Medications Acetaminophen (Tylenol -) 325 mg PO Q4H PRN PRN Reason: PAIN Last Admin: 07/29/17 03:00 Dose: 325 mg Bisacodyl (Dulcolax Suppository -) 10 mg [place] DAILY PRN PRN Reason: CONSTIPATION Chlorhexidine Gluconate (Hibiclens For Decolonization -) 1 applic TP HS [facility] Last Admin: 07/28/17 21:18 Dose: 1 applic Cinacalcet (Sensipar -) 30 mg PO MoWeFr@1000 [facility] Last Admin: 07/27/17 11:22 Dose: Not Given Collagenase (Santyl -) 1 applic TP DAILY [facility] Last Admin: 07/28/17 15:36 Dose: 1 applic Furosemide (Lasix -) 80 mg PO DAILY [facility] Last Admin: 07/28/17 10:00 Dose: Not Given Heparin Sodium (Porcine) (Heparin -) 5,000 unit SQ BID [facility] Last Admin: 07/28/17 21:18 Dose: 5,000 unit Hydromorphone HCl (Dilaudid Injection -) 0.5 mg IVPB Q6H PRN PRN Reason: PAIN Last Admin: 07/28/17 08:52 Dose: 0.5 mg Insulin Aspart (Novolog Mix 70/30 Vial) 6 units SQ AM [facility] Last Admin: 07/28/17 08:00 Dose: Not Given Insulin Aspart (Novolog Mix 70/30 Vial) 8 units SQ HS [facility] Last Admin: 07/28/17 21:19 Dose: 8 units Insulin Aspart (Novolog Vial Sliding Scale -) 1 vial SQ BIDAC [facility] PRN Reason: Protocol Last Admin: 07/28/17 17:50 Dose: 4 units Lactated Ringer's (Lactated Ringers Solution) 1,000 ml IV Q2H PRN PRN Reason: MAP<65mm Hg OR SBP <90 Last Admin: 07/28/17 05:00 Dose: 1,000 ml Levothyroxine Sodium 200 mcg/ (Levothyroxine Sodium 25 mcg) 225 mcg PO DAILY@ 0700 [facility] Last Admin: 07/29/17 06:33 Dose: 225 mcg Magnesium Oxide (Mag-Ox -) 400 mg PO DAILY [facility] Last Admin: 07/28/17 09:44 Dose: 400 mg Mupirocin (Bactroban Ointment (For Decolonization) -) 1 applic NS BID [facility] Stop: 08/01/17 21:59 Last Admin: 07/28/17 21:18 Dose: 1 applic Ondansetron HCl (Zofran Injection) 4 mg IVPUSH Q6H PRN PRN Reason: NAUSEA AND/OR VOMITING Oxycodone HCl (Roxicodone -) 5 mg PO Q4H PRN PRN Reason: PAIN LEVEL 6-10 Last Admin: 07/29/17 03:00 Dose: 5 mg Pantoprazole Sodium (Protonix -) 20 mg PO DAILY [facility] Last Admin: 07/28/17 09:48 Dose: 20 mg Polyethylene Glycol (Miralax (For Daily Use) -) 17 gm PO DAILY PRN PRN Reason: CONSTIPATION Sevelamer Carbonate (Renvela -) 800 mg PO TIDCM [facility] Last Admin: 07/28/17 17:50 Dose: 800 mg 82 year old woman with PMhx of ESRD no HD x 7 years, hypertension, DM who presented with Right LE pain and weakness with some chronic swelling of the LE and admitted for degenerative changes of the right hip. 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
[2017-07-29] MEDS ORDERED: INSULIN (NOVOLOG) ASPART 100 UNITS/ML 10ML VIAL ONE (08:35)
--- NOTE | 2017-07-29 08:36 | PN ---
Progress Note (short form) - Note Progress Note: PULM/CCM POD#2: s/p removal of R hip hardware, trans-trochanteric R total hip replacement. Pt Seen & examined in the ICU. Pt is CA+OX3, upright in bed, NAD, eating breakfast, mild oozing from surgical site. Active Medications Acetaminophen (Tylenol -) 325 mg PO Q4H PRN PRN Reason: PAIN Last Admin: 07/29/17 03:00 Dose: 325 mg Bisacodyl (Dulcolax Suppository -) 10 mg [place] DAILY PRN PRN Reason: CONSTIPATION Chlorhexidine Gluconate (Hibiclens For Decolonization -) 1 applic TP HS [facility] Last Admin: 07/28/17 21:18 Dose: 1 applic Cinacalcet (Sensipar -) 30 mg PO MoWeFr@1000 [facility] Last Admin: 07/27/17 11:22 Dose: Not Given Collagenase (Santyl -) 1 applic TP DAILY [facility] Last Admin: 07/28/17 15:36 Dose: 1 applic Furosemide (Lasix -) 80 mg PO DAILY [facility] Last Admin: 07/29/17 09:40 Dose: 80 mg Heparin Sodium (Porcine) (Heparin -) 5,000 unit SQ BID [facility] Last Admin: 07/29/17 09:38 Dose: 5,000 unit Hydromorphone HCl (Dilaudid Injection -) 0.5 mg IVPB Q6H PRN PRN Reason: PAIN Last Admin: 07/28/17 08:52 Dose: 0.5 mg Insulin Aspart (Novolog Mix 70/30 Vial) 6 units SQ AM [facility] Last Admin: 07/29/17 08:39 Dose: 6 units Insulin Aspart (Novolog Mix 70/30 Vial) 8 units SQ HS [facility] Last Admin: 07/28/17 21:19 Dose: 8 units Insulin Aspart (Novolog Vial Sliding Scale -) 1 vial SQ BIDAC [facility] PRN Reason: Protocol Last Admin: 07/29/17 07:00 Dose: Not Given Lactated Ringer's (Lactated Ringers Solution) 1,000 ml IV Q2H PRN PRN Reason: MAP<65mm Hg OR SBP <90 Last Admin: 07/28/17 05:00 Dose: 1,000 ml Levothyroxine Sodium 200 mcg/ (Levothyroxine Sodium 25 mcg) 225 mcg PO DAILY@ 0700 [facility] Last Admin: 07/29/17 06:33 Dose: 225 mcg Magnesium Oxide (Mag-Ox -) 400 mg PO DAILY [facility] Last Admin: 07/29/17 09:40 Dose: 400 mg Mupirocin (Bactroban Ointment (For Decolonization) -) 1 applic NS BID [facility] Stop: 08/01/17 21:59 Last Admin: 07/29/17 09:42 Dose: 1 applic Ondansetron HCl (Zofran Injection) 4 mg IVPUSH Q6H PRN PRN Reason: NAUSEA AND/OR VOMITING Oxycodone HCl (Roxicodone -) 5 mg PO Q4H PRN PRN Reason: PAIN LEVEL 6-10 Last Admin: 07/29/17 03:00 Dose: 5 mg Pantoprazole Sodium (Protonix -) 20 mg PO DAILY [facility] Last Admin: 07/29/17 09:41 Dose: 20 mg Polyethylene Glycol (Miralax (For Daily Use) -) 17 gm PO DAILY PRN PRN Reason: CONSTIPATION Sevelamer Carbonate (Renvela -) 800 mg PO TIDCM [facility] Last Admin: 07/29/17 12:12 Dose: 800 mg V/S Period Temp Pulse Resp BP Sys/[place] Pulse Ox Last 24 Hr 97.8 F-98.7 F 98-110 15-22 93-120/55-93 99-100 Intake & Output 07/26/17 07/27/17 07/28/17 07/29/17 23:59 23:59 23:59 23:59 Intake Total 1120 2350 3780 Output Total 1800 400 300 Balance 4808 162 8611 -300 Weight 89.074 kg 91.285 kg 88.7 kg CBC, BMP 07/29/17 08:15 07/29/17 08:15 Microbiology 07/23/17 20:25 Blood - Peripheral Venous Blood Culture - Final NO GROWTH AFTER 5 DAYS INCUBATION 07/23/17 20:00 Blood - Peripheral Venous Blood Culture - Final NO GROWTH AFTER 5 DAYS INCUBATION ASSESS: This is an 82 y/o woman POD#2 s/p removal of R hip hardware, trans- trochanteric R total hip replacement. PLAN: -FiO2 prn for an SpO2 > 92% -Nebs -HOB > 30 -IS -Post-Op pain management -Zofran prn N/V -Monitor WILDA output- (it is common for pts to have large amounts of drainage) -Normal transfusion thresholds -(s/p dose of DDAVP) -Restart anti-HTN meds -Hold on restarting anti-coags -Restart ASA tomorrow -FSs -SSI prn -HD as per renal -SQH BID -SCDs -BR -PT/OT -PPI -Ok for Tele DGL, ACNP-BC [facility] ICU PULM / CCM 0375
[2017-07-29] MEDS: INSULIN (NOVOLOG MIX 70/30) 100 UNITS/ML MDV SQ SCH ×2 (08:39→22:30)
[2017-07-29] MEDS: SEVELAMER CARBONATE 800 MG TAB (FP) PO SCH ×3 (08:41→17:26)
[2017-07-29 08:50] LABS: MCH 33.3 pg (25.7-33.7); MCHC 34.4 g/dl (32.0-36.0); MEAN PLT VOLUME 7.8 fl (7.5-11.1); PLATELET COUNT 162 K/MM3 (134-434); RDW 20.3 % (11.6-15.6); WHITE BLOOD COUNT 9.7 K/mm3 (4.0-10.0)
[2017-07-29 09:17] LABS: ANION GAP 6 (8-16); CALCIUM 7.2 mg/dL (8.5-10.1); CO2 30 mmol/L (21-32); CREATININE 3.4 mg/dL (0.55-1.02); GLUCOSE,RANDOM 98 mg/dL (74-106)
--- NOTE | 2017-07-29 09:34 | PN ---
Progress Note, Physician History of Present Illness: 82F w/ hx of DM, OA, ESRD on HD, and recent RLE cellulitis in 02/2017 presenting with right hip, knee, and ankle pain for 2 days. Per patient, she was in her USOH until 2 days ago when she was ready to go to bed, and her right leg began significantly hurting her. She stated that it locked up, and she was unable to move it due to pain. When her daughter came over and saw her, she decided to take her to the hospital. Pt reports a history of intermittent right leg pain which she attributes to her OA which is usually controlled with tylenol , but she reports that this pain was worse than she ever experienced. She endorses a right heel ulcer for which she sees Dr. Sinclair and receives wound care. She denies fevers, chills, numbness, weakness, chest pain, SOB, abdominal pain, n/v/d/c, and dysuria. Of note, pt was admitted for RLE cellulitis and ulcer in 02/2017. Wound cultures grew E. coli and staph coagulase negative. Pt was successfully treated with vancomycin and levaquin. PMH Atrial fibrillation Bare metal stent of ostial LCx April 01, 2015 Dr. Elizabeth CAD - mLAD 30% , oLCx 90%, RPDA 40% March 05, 2015 Dr. Elizabeth Diabetes mellitus, type II 1997 Dialysis 2010 End stage renal disease Hypertension Hypothyroidism Mildly reduced EF 48% February 2016 Moderate mean PG 23 mmHg February 2016 Severe GI bleed 2006 - Current Medication List Current Medications: Active Medications Acetaminophen (Tylenol -) 325 mg PO Q4H PRN PRN Reason: PAIN Last Admin: 07/29/17 03:00 Dose: 325 mg Bisacodyl (Dulcolax Suppository -) 10 mg [place] DAILY PRN PRN Reason: CONSTIPATION Chlorhexidine Gluconate (Hibiclens For Decolonization -) 1 applic TP HS [facility] Last Admin: 07/28/17 21:18 Dose: 1 applic Cinacalcet (Sensipar -) 30 mg PO MoWeFr@1000 [facility] Last Admin: 07/27/17 11:22 Dose: Not Given Collagenase (Santyl -) 1 applic TP DAILY [facility] Last Admin: 07/28/17 15:36 Dose: 1 applic Furosemide (Lasix -) 80 mg PO DAILY [facility] Last Admin: 07/28/17 10:00 Dose: Not Given Heparin Sodium (Porcine) (Heparin -) 5,000 unit SQ BID [facility] Last Admin: 07/28/17 21:18 Dose: 5,000 unit Hydromorphone HCl (Dilaudid Injection -) 0.5 mg IVPB Q6H PRN PRN Reason: PAIN Last Admin: 07/28/17 08:52 Dose: 0.5 mg Insulin Aspart (Novolog Mix 70/30 Vial) 6 units SQ AM [facility] Last Admin: 07/29/17 08:39 Dose: 6 units Insulin Aspart (Novolog Mix 70/30 Vial) 8 units SQ HS [facility] Last Admin: 07/28/17 21:19 Dose: 8 units Insulin Aspart (Novolog Vial Sliding Scale -) 1 vial SQ BIDAC [facility] PRN Reason: Protocol Last Admin: 07/29/17 07:00 Dose: Not Given Lactated Ringer's (Lactated Ringers Solution) 1,000 ml IV Q2H PRN PRN Reason: MAP<65mm Hg OR SBP <90 Last Admin: 07/28/17 05:00 Dose: 1,000 ml Levothyroxine Sodium 200 mcg/ (Levothyroxine Sodium 25 mcg) 225 mcg PO DAILY@ 0700 [facility] Last Admin: 07/29/17 06:33 Dose: 225 mcg Magnesium Oxide (Mag-Ox -) 400 mg PO DAILY [facility] Last Admin: 07/28/17 09:44 Dose: 400 mg Mupirocin (Bactroban Ointment (For Decolonization) -) 1 applic NS BID [facility] Stop: 08/01/17 21:59 Last Admin: 07/28/17 21:18 Dose: 1 applic Ondansetron HCl (Zofran Injection) 4 mg IVPUSH Q6H PRN PRN Reason: NAUSEA AND/OR VOMITING Oxycodone HCl (Roxicodone -) 5 mg PO Q4H PRN PRN Reason: PAIN LEVEL 6-10 Last Admin: 07/29/17 03:00 Dose: 5 mg Pantoprazole Sodium (Protonix -) 20 mg PO DAILY [facility] Last Admin: 07/28/17 09:48 Dose: 20 mg Polyethylene Glycol (Miralax (For Daily Use) -) 17 gm PO DAILY PRN PRN Reason: CONSTIPATION Sevelamer Carbonate (Renvela -) 800 mg PO TIDCM [facility] Last Admin: 07/29/17 08:41 Dose: 800 mg - Objective Vital Signs: Vital Signs Temperature 98 F 07/29/17 02:00 Pulse Rate 108 H 07/29/17 08:00 Respiratory Rate 20 07/29/17 08:00 Blood Pressure 113/56 07/29/17 08:00 O2 Sat by Pulse Oximetry (%) 100 07/28/17 19:55 Eyes: Yes: WNL, Conjunctiva Clear, EOM Intact HENT: Yes: WNL, Atraumatic, Normocephalic Neck: Yes: WNL, Supple, Trachea Midline Cardiovascular: Yes: WNL, Regular Rate and Rhythm Respiratory: Yes: WNL, Regular, CTA Bilaterally Gastrointestinal: Yes: WNL, Normal Bowel Sounds Genitourinary: Yes: WNL Musculoskeletal: Yes: WNL Extremities: Yes: WNL Edema: No Integumentary: Yes: WNL Neurological: Yes: WNL, Alert, Oriented ...Motor Strength: WNL Psychiatric: Yes: WNL Labs: CBC, BMP 07/29/17 08:15 07/29/17 08:15 INR, PTT INR 1.22 (0.82-1.09) H 07/27/17 06:25 Assessment/Plan s/p total R hip replacement. 700cc of blood loss intraop. Extubated in PACU. Transferred to ICU for post op care. Hemodynamically stable. Significant output from WILDA drain. Receiving 1 PRBC and DDAVP now. Atrial fibrillation Bare metal stent of ostial LCx April 01, 2015 Dr. Elizabeth CAD - mLAD 30% , oLCx 90%, RPDA 40% March 05, 2015 Dr. Elizabeth Diabetes mellitus, type II 1996 Dialysis 2010 End stage renal disease Hypertension Hypothyroidism Mildly reduced EF 48% February 2016 Moderate mean PG 23 mmHg February 2016 Severe GI bleed 2006 Plan cont pain control dvt plx and supportive rx cc time 35 min
[2017-07-29] MEDS: HEPARIN NA (PORCINE) 5,000 UNITS/ML 1ML VIAL SQ SCH ×2 (09:38→21:23)
[2017-07-29] MEDS: MAGNESIUM OXIDE 400 MG TABLET (FP) PO SCH (09:40)
[2017-07-29] MEDS: FUROSEMIDE 40 MG TABLET (FP) PO SCH (09:40)
[2017-07-29] MEDS: PANTOPRAZOLE 20 MG TABLET (FP) PO SCH (09:41)
[2017-07-29] MEDS: MUPIROCIN 2% TOPICAL OINTMENT FOR DECOLONIZATION NS SCH ×2 (09:42→21:23)
--- NOTE | 2017-07-29 13:40 | PN ---
Progress Note (short form) - Note Progress Note: Pt seen/ examined in icu. s/p orif - hip pod # 2 being transfused had oozing/ from hip area- per nurse pain under control. overall feels well Vital Signs Temp 98.7 F 07/29/17 12:00 Pulse 108 H 07/29/17 12:00 Resp 20 07/29/17 12:00 BP 112/65 07/29/17 12:00 Pulse Ox 100 07/29/17 11:12 Intake & Output 07/28/17 07/29/17 07/29/17 23:59 11:59 23:59 Intake Total 2030 Output Total 240 300 Balance 1790 -300 Weight 195 lb 8.8 oz Intake: IV 500 Peripheral IV 500 IVPB 250 Oral 1280 Output: Drainage 240 200 Right Hip 240 200 Urine 100 [place] 100 Other: Voiding Method Indwelling Catheter Active Medications Acetaminophen (Tylenol -) 325 mg PO Q4H PRN PRN Reason: PAIN Last Admin: 07/29/17 03:00 Dose: 325 mg Bisacodyl (Dulcolax Suppository -) 10 mg [place] DAILY PRN PRN Reason: CONSTIPATION Chlorhexidine Gluconate (Hibiclens For Decolonization -) 1 applic TP HS [facility] Last Admin: 07/28/17 21:18 Dose: 1 applic Cinacalcet (Sensipar -) 30 mg PO MoWeFr@1000 [facility] Last Admin: 07/27/17 11:22 Dose: Not Given Collagenase (Santyl -) 1 applic TP DAILY [facility] Last Admin: 07/28/17 15:36 Dose: 1 applic Furosemide (Lasix -) 80 mg PO DAILY [facility] Last Admin: 07/29/17 09:40 Dose: 80 mg Heparin Sodium (Porcine) (Heparin -) 5,000 unit SQ BID [facility] Last Admin: 07/29/17 09:38 Dose: 5,000 unit Hydromorphone HCl (Dilaudid Injection -) 0.5 mg IVPB Q6H PRN PRN Reason: PAIN Last Admin: 07/28/17 08:52 Dose: 0.5 mg Insulin Aspart (Novolog Mix 70/30 Vial) 6 units SQ AM [facility] Last Admin: 07/29/17 08:39 Dose: 6 units Insulin Aspart (Novolog Mix 70/30 Vial) 8 units SQ HS [facility] Last Admin: 07/28/17 21:19 Dose: 8 units Insulin Aspart (Novolog Vial Sliding Scale -) [facility] Reason: Protocol Last Admin: 07/29/17 07:00 Dose: Not Given Lactated Ringer's (Lactated Ringers Solution) 1,000 ml IV Q2H PRN PRN Reason: MAP<65mm Hg OR SBP <90 Last Admin: 07/28/17 05:00 Dose: 1,000 ml Levothyroxine Sodium 200 mcg/ (Levothyroxine Sodium 25 mcg) 225 mcg PO DAILY@ 0700 [facility] Last Admin: 07/29/17 06:33 Dose: 225 mcg Magnesium Oxide (Mag-Ox -) 400 mg PO DAILY [facility] Last Admin: 07/29/17 09:40 Dose: 400 mg Mupirocin (Bactroban Ointment (For Decolonization) -) 1 applic NS BID [facility] Stop: 08/01/17 21:59 Last Admin: 07/29/17 09:42 Dose: 1 applic Ondansetron HCl (Zofran Injection) 4 mg IVPUSH Q6H PRN PRN Reason: NAUSEA AND/OR VOMITING Oxycodone HCl (Roxicodone -) 5 mg PO Q4H PRN PRN Reason: PAIN LEVEL 6-10 Last Admin: 07/29/17 03:00 Dose: 5 mg Pantoprazole Sodium (Protonix -) 20 mg PO DAILY [facility] Last Admin: 07/29/17 09:41 Dose: 20 mg Polyethylene Glycol (Miralax (For Daily Use) -) 17 gm PO DAILY PRN PRN Reason: CONSTIPATION Sevelamer Carbonate (Renvela -) 800 mg PO TIDCM [facility] Last Admin: 07/29/17 12:12 Dose: 800 mg CBC, BMP 07/29/17 08:15 07/29/17 08:15 Microbiology 07/23/17 20:25 Blood Culture - Final Blood - Peripheral Venous NO GROWTH AFTER 5 DAYS INCUBATION 07/23/17 20:00 Blood Culture - Final Blood - Peripheral Venous NO GROWTH AFTER 5 DAYS INCUBATION Physical Exam Constitutional: Yes: No Distress/ comfortable Cardiovascular: Yes: Regular Rate and Rhythm Respiratory: Yes: Diminished at bases Gastrointestinal: Yes: Normal Bowel Sounds, Soft. No: Distention, Tenderness Edema: Yes Problem List - Problems (1) Hip pain, right Code(s): M25.551 - PAIN IN RIGHT HIP (2) CAD (coronary artery disease) Code(s): I25.10 - ATHSCL HEART DISEASE OF [place] CORONARY ARTERY W/O ANG PCTRS (3) Diabetes 1.5, managed as type 1 Code(s): E10.9 - TYPE 1 DIABETES MELLITUS WITHOUT COMPLICATIONS (4) Diabetic foot ulcer Code(s): E11.621 - TYPE 2 DIABETES MELLITUS WITH FOOT ULCER; L97.509 - NON- PRESSURE CHRONIC ULCER OTH PRT UNSP FOOT W UNSP SEVERITY (5) ESRD (end stage renal disease) on dialysis Code(s): N18.6 - END STAGE RENAL DISEASE; Z99.2 - DEPENDENCE ON RENAL DIALYSIS (6) Hypertension Code(s): I10 - ESSENTIAL (PRIMARY) HYPERTENSION (7) Hypothyroidism Code(s): E03.9 - HYPOTHYROIDISM, UNSPECIFIED (8) Venous (peripheral) insufficiency Code(s): I87.2 - VENOUS INSUFFICIENCY (CHRONIC) (PERIPHERAL) (9) Fever Code(s): R50.9 - FEVER, UNSPECIFIED Assessment/Plan being transfused pain ok will not start asa today will consider starting tomorrow continue other meds physical therapy will follow discussed with nursing staff.
[2017-07-29] MEDS: COLLAGENASE CLOSTRIDIUM HIST. 30 GRAMS TUBE TP SCH (14:00)
[2017-07-29] MEDS ORDERED: HYDROmorphone HCL CARPU-JECT 2 MG/1 ML DISP.SYRIN ONE (17:56)
[2017-07-29] MEDS: HYDROmorphone HCL CARPU-JECT 1 MG/1 ML DISP.SYRIN IVPB PRN (18:02)
[2017-07-29 18:50] LABS: BASOPHIL 0.5 % (0-2.0); EOSINOPHIL 1.9 % (0-4.5); MCH 32.9 pg (25.7-33.7); MCHC 33.9 g/dl (32.0-36.0); MEAN PLT VOLUME 8.2 fl (7.5-11.1); NEUTROPHILS 82.4 % (42.8-82.8); PLATELET COUNT 170 K/MM3 (134-434); RDW 20.4 % (11.6-15.6); WHITE BLOOD COUNT 8.8 K/mm3 (4.0-10.0)
[2017-07-29] MEDS: CHLORHEXIDINE GLUCONATE 4% CLEANSER FOR DECOLONIZATION TP SCH (21:23)
[2017-07-30] MEDS ORDERED: LEVOTHYROXINE NA 25 MCG TABLET (FP) ONE (06:25)
[2017-07-30] MEDS ORDERED: LEVOTHYROXINE NA 100 MCG TABLET (FP) ONE (06:25)
[2017-07-30] MEDS: LEVOTHYROXINE 200 MCG, LEVOTHYROXINE 25 MCG PO SCH (06:26)
[2017-07-30] MEDS: INSULIN SLIDING SCALE (NOVOLOG) 1 VIAL SQ SCH ×2 (06:30→16:39)
[2017-07-30] MEDS: INSULIN (NOVOLOG MIX 70/30) 100 UNITS/ML MDV SQ SCH ×2 (06:32→21:51)
[2017-07-30] MEDS ORDERED: HYDROmorphone HCL CARPU-JECT 2 MG/1 ML DISP.SYRIN ONE ×2 (08:23→14:25)
[2017-07-30] MEDS: HYDROmorphone HCL CARPU-JECT 1 MG/1 ML DISP.SYRIN IVPB PRN (08:46)
[2017-07-30] MEDS: SEVELAMER CARBONATE 800 MG TAB (FP) PO SCH ×3 (08:55→16:38)
[2017-07-30] MEDS: FUROSEMIDE 40 MG TABLET (FP) PO SCH (09:07)
[2017-07-30] MEDS: CINACALCET HCL 30 MG TAB (FP) PO SCH (09:07)
[2017-07-30] MEDS: MAGNESIUM OXIDE 400 MG TABLET (FP) PO SCH (09:08)
[2017-07-30] MEDS: PANTOPRAZOLE 20 MG TABLET (FP) PO SCH (09:08)
[2017-07-30] MEDS: HEPARIN NA (PORCINE) 5,000 UNITS/ML 1ML VIAL SQ SCH ×3 (09:08→21:57)
[2017-07-30] MEDS: MUPIROCIN 2% TOPICAL OINTMENT FOR DECOLONIZATION NS SCH (09:08)
--- NOTE | 2017-07-30 09:08 | PN ---
Progress Note (short form) - Note Progress Note: Pt seen/ examined in icu. s/p orif - hip pod # 3 transfused yeserday just got dilaudid for pain. Vital Signs Temp 98.9 F 07/30/17 06:00 Pulse 113 H 07/30/17 06:00 Resp 14 07/30/17 06:00 BP 85/60 07/30/17 06:00 Pulse Ox 100 07/29/17 11:12 Intake & Output 07/29/17 07/29/17 07/30/17 11:59 23:59 11:59 Intake Total 970 250 Output Total 300 320 300 Balance -300 650 -50 Weight 195 lb 8.8 oz 205 lb 3 oz Intake: Oral 620 250 Packed Cells 350 Output: Drainage 200 200 100 Right Hip 200 200 100 Urine 100 120 200 [place] 100 120 200 Other: Voiding Method Indwelling Catheter Indwelling Catheter Weight Measurement Method Built in [facility] Active Medications Acetaminophen (Tylenol -) 325 mg PO Q4H PRN PRN Reason: PAIN Last Admin: 07/29/17 03:00 Dose: 325 mg Aspirin (Ecotrin -) 81 mg PO DAILY [facility] Bisacodyl (Dulcolax Suppository -) 10 mg [place] DAILY PRN PRN Reason: CONSTIPATION Chlorhexidine Gluconate (Hibiclens For Decolonization -) 1 applic TP HS [facility] Last Admin: 07/29/17 21:23 Dose: 1 applic Cinacalcet (Sensipar -) 30 mg PO MoWeFr@1000 [facility] Last Admin: 07/27/17 11:22 Dose: Not Given Collagenase (Santyl -) 1 applic TP DAILY [facility] Last Admin: 07/29/17 14:00 Dose: 1 applic Furosemide (Lasix -) 80 mg PO DAILY [facility] Last Admin: 07/29/17 09:40 Dose: 80 mg Heparin Sodium (Porcine) (Heparin -) 5,000 unit SQ BID [facility] Last Admin: 07/29/17 21:23 Dose: 5,000 unit Hydromorphone HCl (Dilaudid Injection -) 0.5 mg IVPB Q6H PRN PRN Reason: PAIN Last Admin: 07/30/17 08:46 Dose: 0.5 mg Insulin Aspart (Novolog Mix 70/30 Vial) 6 units SQ AM [facility] Last Admin: 07/30/17 06:32 Dose: Not Given Insulin Aspart (Novolog Mix 70/30 Vial) 8 units SQ HS [facility] Last Admin: 07/29/17 22:30 Dose: 8 units Insulin Aspart (Novolog Vial Sliding Scale -) 1 vial SQ BIDAC [facility] PRN Reason: Protocol Last Admin: 07/30/17 06:30 Dose: Not Given Lactated Ringer's (Lactated Ringers Solution) 1,000 ml IV Q2H PRN PRN Reason: MAP<65mm Hg OR SBP <90 Last Admin: 07/28/17 05:00 Dose: 1,000 ml Levothyroxine Sodium 200 mcg/ (Levothyroxine Sodium 25 mcg) 225 mcg PO DAILY@ 0700 [facility] Last Admin: 07/30/17 06:26 Dose: 225 mcg Magnesium Oxide (Mag-Ox -) 400 mg PO DAILY [facility] Last Admin: 07/29/17 09:40 Dose: 400 mg Mupirocin (Bactroban Ointment (For Decolonization) -) 1 applic NS BID [facility] Stop: 08/01/17 21:59 Last Admin: 07/29/17 21:23 Dose: 1 applic Ondansetron HCl (Zofran Injection) 4 mg IVPUSH Q6H PRN PRN Reason: NAUSEA AND/OR VOMITING Pantoprazole Sodium (Protonix -) 20 mg PO DAILY [facility] Last Admin: 07/29/17 09:41 Dose: 20 mg Polyethylene Glycol (Miralax (For Daily Use) -) 17 gm PO DAILY PRN PRN Reason: CONSTIPATION Sevelamer Carbonate (Renvela -) 800 mg PO TIDCM [facility] Last Admin: 07/30/17 08:55 Dose: 800 mg CBC, BMP 07/29/17 18:05 07/29/17 08:15 Physical Exam Constitutional: Yes: No Distress/ comfortable Cardiovascular: Yes: Regular Rate and Rhythm Respiratory: Yes: Diminished at bases Gastrointestinal: Yes: Normal Bowel Sounds, Soft. No: Distention, Tenderness Ext-- right hip-- drain + -- small amount of blood in bag Problem List - Problems (1) Hip pain, right Code(s): M25.551 - PAIN IN RIGHT HIP (2) CAD (coronary artery disease) Code(s): I25.10 - ATHSCL HEART DISEASE OF [place] CORONARY ARTERY W/O ANG PCTRS (3) Diabetes 1.5, managed as type 1 Code(s): E10.9 - TYPE 1 DIABETES MELLITUS WITHOUT COMPLICATIONS (4) Diabetic foot ulcer Code(s): E11.621 - TYPE 2 DIABETES MELLITUS WITH FOOT ULCER; L97.509 - NON- PRESSURE CHRONIC ULCER OTH PRT UNSP FOOT W UNSP SEVERITY (5) ESRD (end stage renal disease) on dialysis Code(s): N18.6 - END STAGE RENAL DISEASE; Z99.2 - DEPENDENCE ON RENAL DIALYSIS (6) Hypertension Code(s): I10 - ESSENTIAL (PRIMARY) HYPERTENSION (7) Hypothyroidism Code(s): E03.9 - HYPOTHYROIDISM, UNSPECIFIED (8) Venous (peripheral) insufficiency Code(s): I87.2 - VENOUS INSUFFICIENCY (CHRONIC) (PERIPHERAL) (9) Fever Code(s): R50.9 - FEVER, UNSPECIFIED Assessment/Plan pain control continue other meds physical therapy start asa with caution will follow. discussed with nursing staff. overall stable may transfer to [facility].
[2017-07-30] MEDS: COLLAGENASE CLOSTRIDIUM HIST. 30 GRAMS TUBE TP SCH (09:09)
[2017-07-30] MEDS ORDERED: ASPIRIN COATED 81 MG TABLET.EC PO SCH (10:00)
[2017-07-30 11:44] LABS: ANION GAP 8 (8-16); CALCIUM 7.5 mg/dL (8.5-10.1); CO2 29 mmol/L (21-32); CREATININE 4.7 mg/dL (0.55-1.02); GLUCOSE,RANDOM 90 mg/dL (74-106)
--- NOTE | 2017-07-30 12:17 | PN ---
Progress Note, Physician History of Present Illness: 82F w/ hx of DM, OA, ESRD on HD, and recent RLE cellulitis in 02/2017 presenting with right hip, knee, and ankle pain for 2 days. Per patient, she was in her USOH until 2 days ago when she was ready to go to bed, and her right leg began significantly hurting her. She stated that it locked up, and she was unable to move it due to pain. When her daughter came over and saw her, she decided to take her to the hospital. Pt reports a history of intermittent right leg pain which she attributes to her OA which is usually controlled with tylenol , but she reports that this pain was worse than she ever experienced. She endorses a right heel ulcer for which she sees Dr. Sinclair and receives wound care. She denies fevers, chills, numbness, weakness, chest pain, SOB, abdominal pain, n/v/d/c, and dysuria. Of note, pt was admitted for RLE cellulitis and ulcer in 02/2017. Wound cultures grew E. coli and staph coagulase negative. Pt was successfully treated with vancomycin and levaquin. PMH Atrial fibrillation Bare metal stent of ostial LCx April 01, 2015 Dr. Elizabeth CAD - mLAD 30% , oLCx 90%, RPDA 40% March 05, 2015 Dr. Elizabeth Diabetes mellitus, type II 1997 Dialysis 2010 End stage renal disease Hypertension Hypothyroidism Mildly reduced EF 48% February 2016 Moderate mean PG 23 mmHg February 2016 Severe GI bleed 2006 - Current Medication List Current Medications: Active Medications Acetaminophen (Tylenol -) 325 mg PO Q4H PRN PRN Reason: PAIN Last Admin: 07/29/17 03:00 Dose: 325 mg Aspirin (Ecotrin -) 81 mg PO DAILY [facility] Last Admin: 07/30/17 09:07 Dose: 81 mg Bisacodyl (Dulcolax Suppository -) 10 mg [place] DAILY PRN PRN Reason: CONSTIPATION Chlorhexidine Gluconate (Hibiclens For Decolonization -) 1 applic TP HS [facility] Last Admin: 07/29/17 21:23 Dose: 1 applic Cinacalcet (Sensipar -) 30 mg PO MoWeFr@1000 [facility] Last Admin: 07/30/17 09:07 Dose: 30 mg Collagenase (Santyl -) 1 applic TP DAILY [facility] Last Admin: 12/04/17 09:09 Dose: 1 applic Furosemide (Lasix -) 80 mg PO DAILY [facility] Last Admin: 07/30/17 09:07 Dose: 80 mg Heparin Sodium (Porcine) (Heparin -) 5,000 unit SQ BID [facility] Last Admin: 07/30/17 09:08 Dose: 5,000 unit Hydromorphone HCl (Dilaudid Injection -) 0.5 mg IVPB Q6H PRN PRN Reason: PAIN Last Admin: 07/30/17 08:46 Dose: 0.5 mg Insulin Aspart (Novolog Mix 70/30 Vial) 6 units SQ AM [facility] Last Admin: 07/30/17 06:32 Dose: Not Given Insulin Aspart (Novolog Mix 70/30 Vial) 8 units SQ HS [facility] Last Admin: 07/29/17 22:30 Dose: 8 units Insulin Aspart (Novolog Vial Sliding Scale -) 1 vial SQ BIDAC [facility] PRN Reason: Protocol Last Admin: 07/30/17 06:30 Dose: Not Given Lactated Ringer's (Lactated Ringers Solution) 1,000 ml IV Q2H PRN PRN Reason: MAP<65mm Hg OR SBP <90 Last Admin: 07/28/17 05:00 Dose: 1,000 ml Levothyroxine Sodium 200 mcg/ (Levothyroxine Sodium 25 mcg) 225 mcg PO DAILY@ 0700 [facility] Last Admin: 07/30/17 06:26 Dose: 225 mcg Magnesium Oxide (Mag-Ox -) 400 mg PO DAILY [facility] Last Admin: 07/30/17 09:08 Dose: 400 mg Mupirocin (Bactroban Ointment (For Decolonization) -) 1 applic NS BID [facility] Stop: 08/01/17 21:59 Last Admin: 07/30/17 09:08 Dose: 1 applic Ondansetron HCl (Zofran Injection) 4 mg IVPUSH Q6H PRN PRN Reason: NAUSEA AND/OR VOMITING Pantoprazole Sodium (Protonix -) 20 mg PO DAILY [facility] Last Admin: 07/30/17 09:08 Dose: 20 mg Polyethylene Glycol (Miralax (For Daily Use) -) 17 gm PO DAILY PRN PRN Reason: CONSTIPATION Sevelamer Carbonate (Renvela -) 800 mg PO TIDCM [facility] Last Admin: 07/30/17 12:12 Dose: 800 mg - Objective Vital Signs: Vital Signs Temperature 98 F 07/30/17 10:00 Pulse Rate 115 H 07/30/17 10:45 Respiratory Rate 16 07/30/17 11:22 Blood Pressure 109/73 07/30/17 10:00 O2 Sat by Pulse Oximetry (%) 94 L 07/30/17 11:22 Eyes: Yes: WNL, Conjunctiva Clear, EOM Intact HENT: Yes: WNL, Atraumatic, Normocephalic Neck: Yes: WNL, Supple, Trachea Midline Cardiovascular: Yes: Pulse Irregular, Murmur, S1, S2 Respiratory: Yes: WNL, Regular, CTA Bilaterally Gastrointestinal: Yes: WNL, Normal Bowel Sounds Genitourinary: Yes: WNL Musculoskeletal: Yes: WNL Extremities: Yes: WNL Edema: No Integumentary: Yes: WNL Neurological: Yes: WNL, Alert, Oriented ...Motor Strength: WNL Psychiatric: Yes: WNL Labs: CBC, BMP 07/29/17 18:05 07/30/17 11:05 INR, PTT INR 1.22 (0.82-1.09) H 07/27/17 06:25 Assessment/Plan s/p total R hip replacement. 700cc of blood loss intraop. Extubated in PACU. Transferred to ICU for post op care. Hemodynamically stable. Significant output from WILDA drain. Receiving 1 PRBC and DDAVP now. Atrial fibrillation Bare metal stent of ostial LCx April 01, 2015 Dr. Elizabeth CAD - mLAD 30% , oLCx 90%, RPDA 40% March 05, 2015 Dr. Elizabeth Diabetes mellitus, type II 1997 Dialysis 2010 End stage renal disease Hypertension Hypothyroidism Mildly reduced EF 48% February 2016 Moderate mean PG 23 mmHg February 2016 Severe GI bleed 2007 Plan cont pain control dvt plx and supportive rx cc time 35 min
--- NOTE | 2017-07-30 12:46 | OP ---
DATE OF OPERATION: 07/27/2017 SURGEON: Omari Benson MD COMPOSITION FLOOR SETTER: Deng Benson MD PREOPERATIVE DIAGNOSES: 1. Failed right hip hardware. 2. Osteoarthritis, right hip. POSTOPERATIVE DIAGNOSES: 1. Failed right hip hardware. 2. Osteoarthritis, right hip. SURGICAL PROCEDURE: 1. Removal of failed hardware, right hip. 2. Transtrochanteric right total hip replacement. ANESTHESIA: General. POSITION: Supine. INCISION: Anterolateral. ESTIMATED BLOOD LOSS: 700 mL. INTRAVENOUS FLUID: 1 unit packed red blood cells and crystalloid as per anesthesia record. SPECIMENS: 1. Right hip hardware. 2. Right femoral head. DRAINS: 15-Nigerian J-P with 400-mL bulb. COMPLICATIONS: None. URINE OUTPUT: None. BACTERIOLOGY: None. TRANSFUSIONS: 1 unit packed red blood cells. CLOSURE: No. 1 and 2-0 Vicryl with skin anjum. INDICATIONS: The patient is an 82-year-old female with numerous, very complicated medical problems. Of note, she is diabetic as well as on dialysis for end-stage renal disease. She is anuric, to my knowledge. Furthermore, she has a right gluteal/sacral decubitus ulcer as well as right heel decubitus ulcer secondary to immobilization. The patient presented to our hospital with the inability to ambulate secondary to right hip pain. Further imaging studies and workup revealed a short Gamma nail as part of the previous treatment for an intertrochanteric hip fracture that had now cut out of her femoral neck and head and had migrated into the supraacetabular bone bed. A pseudo acetabulum had been formed with proximalization and shortening of her whole right lower extremity. The patient was indicated for a removal of hardware and conversion to a total hip replacement in order to provide stability to her right hip and to facilitate early motion and mobilization and to prevent the complications that she is already succumbing to associated with prolonged bedrest. The patient is identified in the holding area by her arm band. A long discussion was held with the patient regarding the risks, benefits, and alternatives of the above-named procedure. Risks include, but are not limited to, pain, bleeding, infection, damage to surrounding structures (including nerves, blood vessels, skin, ligaments, tendons, and bone), wound complications, failure of hardware/implant/reduction, need for further surgery, blood clots, myocardial infarction, pulmonary embolism, anesthesia complications, compartment syndrome, limb loss, limp, loss of function, and . Benefits as mentioned above. Alternatives include no surgery. All questions were answered. The patient understood and agreed to the procedure. Informed consent was obtained, witnessed, and verified. The patient's correct operative limb, that is the right lower extremity, was marked. The patient was taken to the operating room after being seen by the anesthesia and nursing staff. DESCRIPTION OF PROCEDURE: The patient was brought into the operating room, placed on the OR table, and secured with a safety strap. Consent and the operative site were again verified with the patient and nursing and anesthesia staff. Anesthesia was then administered without complications including IV antibiosis. Time-out was done led by the attending surgeon. The operative orthopaedic exam revealed a markedly shortened right lower extremity. The operative site was then prepped and draped in a standard sterile fashion. A time-out was again done and the case begun. A direct lateral incision was taken from the level of the anterior superior iliac spine distally in line with the femur to about the equivalent level of the proximal 1/3 of the femur. The sharp dissection was carried through the IT band after which time a deep Charnley retractor was placed. Next, vastus lateralis muscle was incised in transverse fashion, and the muscle was lifted using an osteotome off the vastus ridge area. Next, a trochanteric osteotomy was made using a saw blade and completed using an osteotome. Retractor was used to reflect the trochanter proximally so as to facilitate the exposure. Next, the dissection of the vastus lateralis was continued distally until the distal interlocking bolt of the prosthesis was identified. Osteotomes were used to free the screwhead from the overgrowth of lateral cortical femoral bone. Next, a screwdriver was used to successfully the distal locking screw. After that, it was dislocated, and the short Gamma nail was visualized to cut out through the superior femoral neck and head. The screw was easily backed out using a collar punch and a mallet, and the entire device was removed. Next, a standard femoral neck cut was made, and the femoral head was excised. After this, the acetabular bone bed was reamed starting with 46-mm reamer in 2-mm increments until a 50-mm reamer was deemed to have satisfactorily prepared the bone bed. Next, a 54-mm Young Harris Trident Tritanum cup was seated with except fixation and press fit into the acetabular bone bed. A 32-mm neutral plastic liner was then seated into the shell. Attention was then turned to the femur where preparation was made to seat a Teresa congregational modular stem. Reamers were used sequentially starting with 13-mm diameter straight reamers in increasing fashion until a 24-mm x 195-mm stem and body construct was placed. The body had been prepped for a 21-mm diameter body. The body was affixed to the stem and secured with a bolt as well as a torque wrench. Next, a trial using a 32-mm minus 4-mm head was performed. Excellent limb length and alignment was achieved. The hip was taken through a full range of motion and deemed to be stable. The trial was dislocated, and a final 32-mm -4 metal head was seated with gentle mallet strikes onto the trunnion of the implant. The hip was again reduced, and the trochanteric osteotomy was reduced and secured using a Young Harris Cable Claw system with 2 [place] cables. Again, excellent oval alignment was achieved along with stable implant as was demonstrated when the hip was taken through a full range of motion. Leg length was satisfactory. Copious irrigation was performed. Hemostasis was assured, and the IT band was closed primarily using No. 1 Vicryl sutures. A deep 15-Nigerian drain was placed. The superficial tissues were closed using a combination of No. 1 and No. 2-0 Vicryl sutures, and the skin was closed primarily using anjum. A sterile compression dressing was applied. The sponge and needle counts were correct at the end of the case, and the attending surgeon was present and scrubbed throughout the case. The patient did receive 1 unit of packed red blood cells due to 700 mL of blood loss. It was quite interesting and noteworthy that the periarticular musculature and bone bed was stained with metallosis and debris from the failed implant. The tissue was black and eaton in color and was debrided where it was not viable. The patient was then extubated by the anesthesia staff without incident or complications and was transferred to the recovery room in stable condition having tolerated the procedure well. MD ESAU Perales/[id number]
[2017-07-30] MEDS ORDERED: LACTATED RINGERS SOLUTION 1000 ML INFUS.BAG IV PRN (13:04)
[2017-07-30] MEDS ORDERED: POLYETHYLENE GLYCOL 3350 119 GM BTL PO PRN (13:04)
[2017-07-30] MEDS ORDERED: ONDANSETRON 4 MG/2 ML VIAL IVPUSH PRN (13:04)
[2017-07-30] MEDS ORDERED: BISACODYL 10 MG SUPP.RECT RC PRN (13:04)
[2017-07-30] MEDS ORDERED: HYDROmorphone HCL CARPU-JECT 1 MG/1 ML DISP.SYRIN IVPB PRN (13:04)
--- NOTE | 2017-07-30 13:04 | PN ---
Teaching Attending Note Name of Resident: Jody Craven ATTENDING PHYSICIAN STATEMENT I saw and evaluated the patient. I reviewed the resident's note and discussed the case with the resident. I agree with the resident's findings and plan as documented. SUBJECTIVE: Pt seen and examined in the ICU. c/o hip pain but controlled when she receives her pain medications. Denies shortness of breath or chest pain. OBJECTIVE: Last Vital Signs Temp Pulse Resp BP Pulse Ox 98 F 115 H 16 109/73 94 L 07/30/17 10:00 07/30/17 10:45 07/30/17 11:22 07/30/17 10:00 07/30/17 11:22 Intake & Output 07/27/17 07/28/17 07/29/17 07/30/17 23:59 23:59 23:59 23:59 Intake Total 2350 3780 970 250 Output Total 1800 400 620 300 Balance 550 3380 350 -50 Weight 201 lb 4 oz 195 lb 8.8 oz 205 lb 3 oz Gen: NAD at rest Heart: tachycardic, irregular Lung: decreased breath sounds at the bases Abd: soft, nontender Ext: no edema, +drain with minimal bloody drainage CBC, BMP 07/29/17 18:05 07/30/17 11:05 Active Medications Acetaminophen (Tylenol -) 325 mg PO Q4H PRN PRN Reason: PAIN Last Admin: 07/29/17 03:00 Dose: 325 mg Aspirin (Ecotrin -) 81 mg PO DAILY [facility] Last Admin: 07/30/17 09:07 Dose: 81 mg Bisacodyl (Dulcolax Suppository -) 10 mg [place] DAILY PRN PRN Reason: CONSTIPATION Chlorhexidine Gluconate (Hibiclens For Decolonization -) 1 applic TP HS [facility] Last Admin: 07/29/17 21:23 Dose: 1 applic Cinacalcet (Sensipar -) 30 mg PO MoWeFr@1000 [facility] Last Admin: 07/30/17 09:07 Dose: 30 mg Collagenase (Santyl -) 1 applic TP DAILY [facility] Last Admin: 07/30/17 09:09 Dose: 1 applic Furosemide (Lasix -) 80 mg PO DAILY [facility] Last Admin: 07/30/17 09:07 Dose: 80 mg Heparin Sodium (Porcine) (Heparin -) 5,000 unit SQ BID [facility] Last Admin: 07/30/17 09:08 Dose: 5,000 unit Hydromorphone HCl (Dilaudid Injection -) 0.5 mg IVPB Q6H PRN PRN Reason: PAIN Last Admin: 07/30/17 08:46 Dose: 0.5 mg Insulin Aspart (Novolog Mix 70/30 Vial) 6 units SQ AM [facility] Last Admin: 07/30/17 06:32 Dose: Not Given Insulin Aspart (Novolog Mix 70/30 Vial) 8 units SQ HS [facility] Last Admin: 07/29/17 22:30 Dose: 8 units Insulin Aspart (Novolog Vial Sliding Scale -) 1 vial SQ BIDAC [facility] PRN Reason: Protocol Last Admin: 07/30/17 06:30 Dose: Not Given Lactated Ringer's (Lactated Ringers Solution) 1,000 ml IV Q2H PRN PRN Reason: MAP<65mm Hg OR SBP <90 Last Admin: 07/28/17 05:00 Dose: 1,000 ml Levothyroxine Sodium 200 mcg/ (Levothyroxine Sodium 25 mcg) 225 mcg PO DAILY@ 0700 [facility] Last Admin: 07/30/17 06:26 Dose: 225 mcg Magnesium Oxide (Mag-Ox -) 400 mg PO DAILY [facility] Last Admin: 07/30/17 09:08 Dose: 400 mg Mupirocin (Bactroban Ointment (For Decolonization) -) 1 applic NS BID [facility] Stop: 08/01/17 21:59 Last Admin: 07/30/17 09:08 Dose: 1 applic Ondansetron HCl (Zofran Injection) 4 mg IVPUSH Q6H PRN PRN Reason: NAUSEA AND/OR VOMITING Pantoprazole Sodium (Protonix -) 20 mg PO DAILY [facility] Last Admin: 07/30/17 09:08 Dose: 20 mg Polyethylene Glycol (Miralax (For Daily Use) -) 17 gm PO DAILY PRN PRN Reason: CONSTIPATION Sevelamer Carbonate (Renvela -) 800 mg PO TIDCM [facility] Last Admin: 07/30/17 12:12 Dose: 800 mg ASSESSMENT AND PLAN: s/p Removal of R hip hardware/R THR Acute Blood Loss Anemia Atrial fibrillation ESRD on HD CAD LV Systolic Dysfunction Aortic Stenosis DM Hypertension Hypothyroidism - pain control - monitor H/H - monitor drain output - HD per renal - rate control - anticoagulation when ok with surgery - rehab/PT - d/c camryn najera monitor on telemetry
[2017-07-30] MEDS ORDERED: HYDROmorphone HCL CARPU-JECT 2 MG/1 ML DISP.SYRIN IVPB PRN (14:01)
--- NOTE | 2017-07-30 14:52 | PN ---
Progress Note (short form) - Note Progress Note: Renal follow up for ESRD on Hd Pt seen and examined in the ICU awake and alert s/p additional PRBC transfusion yesterday pt continues to have pain in the hip no sob, chest pain or abd pain Vital Signs Temperature 98 F 07/30/17 10:00 Pulse Rate 115 H 07/30/17 10:45 Respiratory Rate 16 07/30/17 11:22 Blood Pressure 109/73 07/30/17 10:00 O2 Sat by Pulse Oximetry (%) 94 L 07/30/17 11:22 Intake & Output 07/27/17 07/28/17 07/29/17 07/30/17 23:59 23:59 23:59 23:59 Intake Total 2350 3780 970 250 Output Total 1800 400 620 300 Balance 550 3380 350 -50 Weight 91.285 kg 88.7 kg 93.071 kg NAD awake and alert tachycardic CTA trace edema in LE chroic stasis changes dressing over right hip WILDA in place CBC, BMP 07/29/17 18:05 07/30/17 11:05 Current Medications Acetaminophen (Tylenol -) 325 mg PO Q4H PRN PRN Reason: PAIN Aspirin (Ecotrin -) 81 mg PO DAILY [facility] Bisacodyl (Dulcolax Suppository -) 10 mg RC DAILY PRN PRN Reason: CONSTIPATION Chlorhexidine Gluconate (Hibiclens For Decolonization -) 1 applic TP HS [facility] Cinacalcet (Sensipar -) 30 mg PO MoWeFr@1000 [facility] Collagenase (Santyl -) 1 applic TP DAILY [facility] Furosemide (Lasix -) 80 mg PO DAILY [facility] Heparin Sodium (Porcine) (Heparin -) 5,000 unit SQ BID [facility] Hydromorphone HCl (Dilaudid Injection -) 0.5 mg IVPB Q6H PRN PRN Reason: PAIN Last Admin: 07/30/17 14:28 Dose: 0.5 mg Insulin Aspart (Novolog Mix 70/30 Vial) 6 units SQ AM [facility] Insulin Aspart (Novolog Mix 70/30 Vial) 8 units SQ HS [facility] Insulin Aspart (Novolog Vial Sliding Scale -) 1 vial SQ BIDAC [facility] PRN Reason: Protocol Lactated Ringer's (Lactated Ringers Solution) 1,000 ml IV Q2H PRN PRN Reason: MAP<65mm Hg OR SBP <90 Levothyroxine Sodium 200 mcg/ (Levothyroxine Sodium 25 mcg) 225 mcg PO DAILY@ 0700 [facility] Magnesium Oxide (Mag-Ox -) 400 mg PO DAILY [facility] Mupirocin (Bactroban Ointment (For Decolonization) -) 1 applic NS BID [facility] Stop: 08/01/17 21:59 Ondansetron HCl (Zofran Injection) 4 mg IVPUSH Q6H PRN PRN Reason: NAUSEA AND/OR VOMITING Pantoprazole Sodium (Protonix -) 20 mg PO DAILY [facility] Polyethylene Glycol (Miralax (For Daily Use) -) 17 gm PO DAILY PRN PRN Reason: CONSTIPATION Sevelamer Carbonate (Renvela -) 800 mg PO TIDCM [facility] 82 year old woman with PMhx of ESRD no HD x 7 years, hypertension, DM who presented with Right LE pain and weakness with some chronic swelling of the LE and admitted for degenerative changes of the right hip. 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
--- NOTE | 2017-07-30 17:57 | PN ---
Physical Exam: SUBJECTIVE: Patient seen and examined at bedside. 24 hr events -Afebrile -No acute events overnight -Received 1 unit PRBCs since Hb 7.8 Today -PO Day 3 s/p R hip hardware, trans-trochanteric R total hip replacement -Very pleasant. Resting comfortably in bed, R hip drain: 300ml out -Stated that she was in pain earlier this AM, however after receiving pain meds , she feels well -Denies lightheadedness, weakness or chest pain -Has been transferred to floor from ICU OBJECTIVE: Vital Signs Period Temp Pulse Resp BP Sys/Willson Pulse Ox Last 24 Hr 98 F-99 F 101-117 12-20 85-111/51-81 94-94 GENERAL: The patient is awake, alert, and fully oriented, in no acute distress. HEAD: Normal with no signs of trauma. EYES: PERRL, extraocular movements intact, sclera anicteric, conjunctiva clear. NECK: Trachea midline, supple. LUNGS: Breath sounds equal, clear to auscultation bilaterally, no wheezes, no crackles, no accessory muscle use. HEART: Regular rate and rhythm, S1, S2 without murmur, rub or gallop. ABDOMEN: Soft, obese, nontender, nondistended, normoactive bowel sounds, no guarding, EXTREMITIES: 2+ dorsalis pedis pulses, R hip and RLE dressing intact with minimal serosanguineous drainage. R hip drain intact. NEUROLOGICAL: Cranial nerves II through XII grossly intact. Laboratory Results - last 24 hr 07/26/17 07/29/17 07/29/17 19:30 18:05 22:25 WBC 8.8 RBC 2.83 L D Hgb 9.3 L D Hct 27.5 L D MCV 97.0 H MCH 32.9 MCHC 33.9 RDW 20.4 H Plt Count 170 MPV 8.2 Neutrophils % 82.4 Lymphocytes % 8.2 D Monocytes % 7.0 Eosinophils % 1.9 D Basophils % 0.5 Sodium Potassium Chloride Carbon Dioxide Anion Gap BUN Creatinine POC Glucometer [phone] Random Glucose Calcium Blood Type O POSITIVE Antibody Screen Negative Crossmatch See Detail 07/30/17 07/30/17 07/30/17 06:29 11:05 11:58 WBC RBC Hgb Hct MCV MCH MCHC RDW Plt Count MPV Neutrophils % Lymphocytes % Monocytes % Eosinophils % Basophils % Sodium 133 L Potassium 4.7 Chloride 96 L Carbon Dioxide 29 Anion Gap 8 BUN 40 H D Creatinine 4.7 H D POC Glucometer 85.84517 [phone] Random Glucose 90 Calcium 7.5 L Blood Type Antibody Screen Crossmatch Active Medications Generic Name Dose Route Start Last Admin Trade Name Freq PRN Reason Stop Dose Admin Acetaminophen 325 mg 07/30/17 13:04 Tylenol - PO Q4H PRN PAIN Aspirin 81 mg 07/31/17 10:00 Ecotrin - PO DAILY [facility] Bisacodyl 10 mg 07/30/17 13:04 Dulcolax Suppository - RC DAILY PRN CONSTIPATION Chlorhexidine Gluconate 1 applic 07/30/17 22:00 Hibiclens For Decolonization - TP HS [facility] Cinacalcet 30 mg 08/01/17 10:00 Sensipar - PO MoWeFr@1000 [facility] Collagenase 1 applic 07/31/17 10:00 Santyl - TP DAILY [facility] Epoetin Cesar 20,000 units 07/31/17 06:00 Epogen - IVPUSH 07/31/17 06:01 ONCE ONE Furosemide 80 mg 07/31/17 10:00 Lasix - PO DAILY [facility] Heparin Sodium (Porcine) 5,000 unit 07/30/17 22:00 Heparin - SQ BID [facility] Insulin Aspart 6 units 07/31/17 07:00 Novolog Mix 70/30 Vial SQ AM [facility] Insulin Aspart 8 units 07/30/17 22:00 Novolog Mix 70/30 Vial SQ HS [facility] Insulin Aspart 1 vial 07/30/17 16:30 07/30/17 16:39 Novolog Vial Sliding Scale - SQ 2 units BIDAC [facility] Administration Protocol Lactated Ringer's 1,000 ml 07/30/17 13:04 Lactated Ringers Solution IV Q2H PRN MAP<65mm Hg OR SBP <90 Levothyroxine Sodium 200 mcg/ 225 mcg 07/31/17 07:00 Levothyroxine Sodium 25 mcg PO DAILY@0700 [facility] Magnesium Oxide 400 mg 07/31/17 10:00 Mag-Ox - PO DAILY [facility] Mupirocin 1 applic 07/30/17 22:00 Bactroban Ointment (For Decolonization) - NS 08/01/17 21:59 BID [facility] Ondansetron HCl 4 mg 12/04/17 13:04 Zofran Injection IVPUSH Q6H PRN NAUSEA AND/OR VOMITING Oxycodone HCl 5 mg 07/30/17 17:18 Roxicodone - PO Q6H PRN PAIN Pantoprazole Sodium 20 mg 07/31/17 10:00 Protonix - PO DAILY [facility] Polyethylene Glycol 17 gm 07/30/17 13:04 Miralax (For Daily Use) - PO DAILY PRN CONSTIPATION Sevelamer Carbonate 800 mg 07/30/17 17:30 07/30/17 16:38 Renvela - PO 800 mg TIDCM [facility] Administration ASSESSMENT/PLAN: #s/p removal of R hip hardware, trans-trochanteric R total hip replacement PO Day 3 -monitor R hip drain- it is common for pts to have large amounts of drainage -watch BP, pt currently 80/60 -Continue to follow Hb as pt has required multiple PRBC transfusions during course -PT consulted to help mobilize pt -incentive spirometry -[place] has been d/c -oxycodone 5mg PO q6h, Tylenol for pain relief -suppository, miralax #afib -aspirin to restart tomorrow #HTN -Holding antiHTN #ESRD -Pt has been anuric -next dialysis is tomorrow -renal dosing of meds #F/E/N -careful with fluids as pt ESRD, do not want to overload -will continue to monitor electrolytes -renal diabetic diet #Prophylaxis DVT: Heparin 5000 SQ BID GI : Protonix 20 mg PO qd #Disposition has been transferred out of ICU Visit type - Emergency Visit Emergency Visit: No - New Patient This patient is new to me today: No - Critical Care Critical Care patient: Yes Total Critical Care Time (in minutes): 42 Critical Care Statement: The care of this patient involved high complexity decision making to prevent further life threatening deterioration of the patient 's condition and/or to evaluate & treat vital organ system(s) failure or risk of failure.
[2017-07-30] MEDS ORDERED: PT OWN MED DRAWER 7, Y5N ONE (21:39)
[2017-07-30] MEDS ORDERED: CHLORHEXIDINE GLUCONATE 4% CLEANSER FOR DECOLONIZATION TP SCH (22:00)
[2017-07-30] MEDS ORDERED: MUPIROCIN 2% TOPICAL OINTMENT FOR DECOLONIZATION NS SCH (22:00)
[2017-07-30] MEDS: oxyCODONE HCL 5 MG TABLET PO PRN (23:24)
[2017-07-31] MEDS: INSULIN (NOVOLOG MIX 70/30) 100 UNITS/ML MDV SQ SCH ×2 (06:22→21:04)
[2017-07-31] MEDS: INSULIN SLIDING SCALE (NOVOLOG) 1 VIAL SQ SCH ×2 (06:22→17:20)
[2017-07-31] MEDS ORDERED: LEVOTHYROXINE NA 100 MCG TABLET (FP) ONE (06:26)
[2017-07-31] MEDS ORDERED: LEVOTHYROXINE NA 25 MCG TABLET (FP) ONE (06:26)
[2017-07-31] MEDS: LEVOTHYROXINE 200 MCG, LEVOTHYROXINE 25 MCG PO SCH (06:29)
[2017-07-31 07:33] LABS: BASOPHIL 0.8 % (0-2.0); EOSINOPHIL 2.2 % (0-4.5); MCH 32.4 pg (25.7-33.7); MEAN CELL VOLUME 98.2 fl (80-96); MEAN PLT VOLUME 8.5 fl (7.5-11.1); NEUTROPHILS 76.2 % (42.8-82.8); PLATELET COUNT 209 K/MM3 (134-434); RDW 19.5 % (11.6-15.6); WHITE BLOOD COUNT 7.3 K/mm3 (4.0-10.0)
[2017-07-31] MEDS: SEVELAMER CARBONATE 800 MG TAB (FP) PO SCH ×3 (07:42→17:23)
[2017-07-31 08:12] LABS: ANION GAP 9 (8-16); CALCIUM 7.7 mg/dL (8.5-10.1); CO2 31 mmol/L (21-32); CREATININE 5.5 mg/dL (0.55-1.02); GLUCOSE,RANDOM 71 mg/dL (74-106)
[2017-07-31] MEDS ORDERED: EPOETIN ALFA 20,000 UNIT/1 ML VIAL IVPUSH ONE (09:00)
--- NOTE | 2017-07-31 09:34 | PN ---
Progress Note (short form) - Note Progress Note: Pt seen/ examined in dialysis comfortable all f/u noted pain ok s/p orif - hip pod # 4 drain taken out Vital Signs Temp 98.8 F 07/31/17 08:10 Pulse 106 H 07/31/17 09:15 Resp 18 07/31/17 09:15 BP 117/56 07/31/17 09:15 Pulse Ox 95 07/30/17 21:00 Intake & Output 07/30/17 07/30/17 07/31/17 11:59 23:59 11:59 Intake Total 250 Output Total 300 100 Balance -50 -100 Weight 205 lb 3 oz 202 lb 2 oz Intake: Oral 250 Output: Drainage 100 50 Right Hip 100 50 Urine 200 50 [place] 200 50 Other: Voiding Method Indwelling Catheter Bedpan # Unmeasured Voids Void 1 Bowel Movement No Weight Measurement Method Built in Bedscale Built in Bedscale CBC, BMP 07/31/17 05:12 07/31/17 05:12 Active Medications Acetaminophen (Tylenol -) 325 mg PO Q4H PRN PRN Reason: PAIN Aspirin (Ecotrin -) 81 mg PO DAILY [facility] Bisacodyl (Dulcolax Suppository -) 10 mg RC DAILY PRN PRN Reason: CONSTIPATION Cinacalcet (Sensipar -) 30 mg PO MoWeFr@1000 [facility] Collagenase (Santyl -) 1 applic TP DAILY [facility] Furosemide (Lasix -) 80 mg PO DAILY [facility] Heparin Sodium (Porcine) (Heparin -) 5,000 unit SQ BID [facility] Last Admin: 07/30/17 21:57 Dose: 5,000 unit Insulin Aspart (Novolog Mix 70/30 Vial) 6 units SQ AM [facility] Last Admin: 07/31/17 06:22 Dose: Not Given Insulin Aspart (Novolog Mix 70/30 Vial) 8 units SQ HS [facility] Last Admin: 07/30/17 21:51 Dose: Not Given Insulin Aspart (Novolog Vial Sliding Scale -) 1 vial SQ BIDAC [facility] PRN Reason: Protocol Last Admin: 07/31/17 06:22 Dose: Not Given Lactated Ringer's (Lactated Ringers Solution) 1,000 ml IV Q2H PRN PRN Reason: MAP<65mm Hg OR SBP <90 Levothyroxine Sodium 200 mcg/ (Levothyroxine Sodium 25 mcg) 225 mcg PO DAILY@ 0700 [facility] Last Admin: 07/31/17 06:29 Dose: 225 mcg Magnesium Oxide (Mag-Ox -) 400 mg PO DAILY [facility] Ondansetron HCl (Zofran Injection) 4 mg IVPUSH Q6H PRN PRN Reason: NAUSEA AND/OR VOMITING Oxycodone HCl (Roxicodone -) 5 mg PO Q6H PRN PRN Reason: PAIN Last Admin: 07/30/17 23:24 Dose: 5 mg Pantoprazole Sodium (Protonix -) 20 mg PO DAILY [facility] Polyethylene Glycol (Miralax (For Daily Use) -) 17 gm PO DAILY PRN PRN Reason: CONSTIPATION Sevelamer Carbonate (Renvela -) 800 mg PO TIDCM [facility] Last Admin: 07/31/17 07:42 Dose: 800 mg Physical Exam Constitutional: Yes: No Distress/ comfortable Cardiovascular: Yes: Regular Rate and Rhythm Respiratory: Yes: Diminished at bases Gastrointestinal: Yes: Normal Bowel Sounds, Soft. No: Distention, Tenderness Ext-- right hip-- dressing + Problem List - Problems (1) Hip pain, right Code(s): M25.551 - PAIN IN RIGHT HIP (2) CAD (coronary artery disease) Code(s): I25.10 - ATHSCL HEART DISEASE OF [place] CORONARY ARTERY W/O ANG PCTRS (3) Diabetes 1.5, managed as type 1 Code(s): E10.9 - TYPE 1 DIABETES MELLITUS WITHOUT COMPLICATIONS (4) Diabetic foot ulcer Code(s): E11.621 - TYPE 2 DIABETES MELLITUS WITH FOOT ULCER; L97.509 - NON- PRESSURE CHRONIC ULCER OTH PRT UNSP FOOT W UNSP SEVERITY (5) ESRD (end stage renal disease) on dialysis Code(s): N18.6 - END STAGE RENAL DISEASE; Z99.2 - DEPENDENCE ON RENAL DIALYSIS (6) Hypertension Code(s): I10 - ESSENTIAL (PRIMARY) HYPERTENSION (7) Hypothyroidism Code(s): E03.9 - HYPOTHYROIDISM, UNSPECIFIED (8) Venous (peripheral) insufficiency Code(s): I87.2 - VENOUS INSUFFICIENCY (CHRONIC) (PERIPHERAL) (9) Fever Code(s): R50.9 - FEVER, UNSPECIFIED Assessment/Plan stable pain control continue other meds physical therapy- going to start today discussed with nursing staff. overall stable will follow. will need str
--- NOTE | 2017-07-31 10:36 | DS ---
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 [Santyl] 90 gm TP DAILY 07/22/17 Furosemide [Lasix] 80 mg PO DAILY 07/22/17 Insulin Aspart Prot/Insuln Asp [Novolog Mix 70-30 Vial] 6 unit SQ AM 07/22/17 Insulin Aspart Prot/Insuln Asp [Novolog Mix 70-30 Vial] 8 unit SQ HS 07/22/17 Labetalol HCl 300 mg PO BID 07/22/17 Magnesium Oxide 400 mg PO DAILY 07/22/17 Mv-Mn/FA/Vit K/Lycop/Lut/Coq10 [Daily Multivitamin Capsule] 1 each PO DAILY Pantoprazole Sodium [Protonix] 20 mg PO DAILY 07/22/17 Sevelamer Carbonate [Renvela -] 800 mg PO TID 07/22/17 Vitamin A Palmitate [Vitamin A] 1 tab PO DAILY 07/22/17 Heparin - 5,000 unit SQ BID #60 vial 07/31/17 Levothyroxine [Synthroid -] 225 mcg PO DAILY@0700 #30 tablet 07/31/17 Oxycodone HCl [Roxicodone -] 5 mg PO Q6H PRN #60 tablet MDD 4 07/31/17
[2017-07-31] MEDS: COLLAGENASE CLOSTRIDIUM HIST. 30 GRAMS TUBE TP SCH (12:00)
[2017-07-31] MEDS: HEPARIN NA (PORCINE) 5,000 UNITS/ML 1ML VIAL SQ SCH ×2 (12:38→21:04)
[2017-07-31] MEDS: PANTOPRAZOLE 20 MG TABLET (FP) PO SCH (12:39)
[2017-07-31] MEDS: MAGNESIUM OXIDE 400 MG TABLET (FP) PO SCH (12:39)
[2017-07-31] MEDS: ASPIRIN COATED 81 MG TABLET.EC PO SCH (12:39)
[2017-07-31] MEDS: FUROSEMIDE 40 MG TABLET (FP) PO SCH (12:39)
--- NOTE | 2017-07-31 13:57 | PN ---
Progress Note, Physician Chief Complaint: Pt is A&Ox3.She is undergoing hemodialysis. Intermittent pain in lower extremity surgical site. History of Present Illness: 82yo white woman with PM hx ESRD on HD, OA p/w R hip, R knee, and R ankle pain that she relates to her arthritis since yesterday evening. Denies trauma. States symptoms occurred after dinner last night when she felt her joints lock up. She has not been able to move since, called her sister this morning who went over and found that the patient was barely able to move due to the pain. Tried tylenol for the pain with minimal relief. Not overly exerting herself. Denies fevers, chills but reports that her LE is increasingly red. Her sister states her leg is as red as it was when she had cellulitis last in March. Denies CP, SOB, headache, focal weakness or numbness. Denies falls. - Current Medication List Current Medications: Active Medications Acetaminophen (Tylenol -) 325 mg PO Q4H PRN PRN Reason: PAIN Aspirin (Ecotrin -) 81 mg PO DAILY [facility] Last Admin: 07/31/17 12:39 Dose: 81 mg Bisacodyl (Dulcolax Suppository -) 10 mg RC DAILY PRN PRN Reason: CONSTIPATION Cinacalcet (Sensipar -) 30 mg PO MoWeFr@1000 [facility] Collagenase (Santyl -) 1 applic TP DAILY [facility] [place] Furosemide (Lasix -) 80 mg PO DAILY [facility] [place] Last Admin: 07/31/17 12:39 Dose: 80 mg Heparin Sodium (Porcine) (Heparin -) 5,000 unit SQ BID [facility] [place] Last Admin: 07/31/17 12:38 Dose: 5,000 unit Insulin Aspart (Novolog Mix 70/30 Vial) 6 units SQ AM [facility] [place] Last Admin: 07/31/17 06:22 Dose: Not Given Insulin Aspart (Novolog Mix 70/30 Vial) 8 units SQ HS [facility] [place] Last Admin: 07/30/17 21:51 Dose: Not Given Insulin Aspart (Novolog Vial Sliding Scale -) 1 vial SQ BIDAC [facility] [place] PRN Reason: Protocol Last Admin: 07/31/17 06:22 Dose: Not Given Lactated Ringer's (Lactated Ringers Solution) 1,000 ml IV Q2H PRN PRN Reason: MAP<65mm Hg OR SBP <90 Levothyroxine Sodium 200 mcg/ (Levothyroxine Sodium 25 mcg) 225 mcg PO DAILY@ 0700 [facility] [place] Last Admin: 07/31/17 06:29 Dose: 225 mcg Magnesium Oxide (Mag-Ox -) 400 mg PO DAILY [facility] [place] Last Admin: 07/31/17 12:39 Dose: 400 mg Ondansetron HCl (Zofran Injection) 4 mg IVPUSH Q6H PRN PRN Reason: NAUSEA AND/OR VOMITING Oxycodone HCl (Roxicodone -) 5 mg PO Q6H PRN PRN Reason: PAIN Last Admin: 07/30/17 23:24 Dose: 5 mg Pantoprazole Sodium (Protonix -) 20 mg PO DAILY [facility] [place] Last Admin: 07/31/17 12:39 Dose: 20 mg Polyethylene Glycol (Miralax (For Daily Use) -) 17 gm PO DAILY PRN PRN Reason: CONSTIPATION Sevelamer Carbonate (Renvela -) 800 mg PO TIDCM [facility] [place] Last Admin: 07/31/17 12:38 Dose: 800 mg - Objective Vital Signs: Vital Signs Temperature 98.8 F 07/31/17 08:10 Pulse Rate 97 H 07/31/17 11:35 Respiratory Rate 18 07/31/17 11:35 Blood Pressure 134/83 07/31/17 11:35 O2 Sat by Pulse Oximetry (%) 95 07/30/17 21:00 Labs: CBC, BMP 07/31/17 05:12 07/31/17 05:12 INR, PTT INR 1.22 (0.82-1.09) H 07/27/17 06:25 Problem List - Problems (1) Systolic and diastolic CHF w/reduced LV function, NYHA class 4 Assessment/Plan: Recommend changing labetolol to carvedilol (presently off antihypertensives, except furosemide, due to relatively low BP). Would eventually add lisinopril if BP allows (systolic CHF; DM). F/u as outpt regarding poor LVEF, likely significant aortic stenosis. Code(s): I50.40 - UNSP COMBINED SYSTOLIC AND DIASTOLIC (CONGESTIVE) HRT FAIL (2) Atrial fibrillation Assessment/Plan: On beta blockers. Hx of bleeding with ?warfarin in the past, as well as adverse reaction to clopidogrel. She has been on ASA for years. Code(s): I48.91 - UNSPECIFIED ATRIAL FIBRILLATION (3) Cellulitis and abscess of right lower extremity Code(s): L03.115 - CELLULITIS OF RIGHT LOWER LIMB; L02.415 - CUTANEOUS ABSCESS OF RIGHT LOWER LIMB (4) Diabetes Code(s): E11.9 - TYPE 2 DIABETES MELLITUS WITHOUT COMPLICATIONS (5) Hip pain, right Assessment/Plan: S/p hip replacement. 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 (7) CAD (coronary artery disease) Code(s): I25.10 - ATHSCL HEART DISEASE OF [place] CORONARY ARTERY W/O ANG PCTRS (8) Diabetes 1.5, managed as type 1 Code(s): E10.9 - TYPE 1 DIABETES MELLITUS WITHOUT COMPLICATIONS (9) ESRD (end stage renal disease) on dialysis Code(s): N18.6 - END STAGE RENAL DISEASE; Z99.2 - DEPENDENCE ON RENAL DIALYSIS (10) Hypertension Code(s): I10 - ESSENTIAL (PRIMARY) HYPERTENSION (11) Aortic stenosis Assessment/Plan: Workup in the future for what is likely now severe aortic stenosis (moderate in 2016) combined with severely reduced LVEF in the setting of coronary artery disease (s/p RCA stent 2016) and symptoms (denies chest pain, but her niece says that pt has been having increasingly severe dyspnea and "lips turn blue" over the past 2-3 months with even mild physical exertion). Code(s): I35.0 - NONRHEUMATIC AORTIC (VALVE) STENOSIS (12) Hyperparathyroidism Code(s): E21.3 - HYPERPARATHYROIDISM, UNSPECIFIED (13) S/P hip replacement Assessment/Plan: avoid excessive dehydration. Blood loss -->2 units PRBCs janine-op, and awaiting a 3rd unit. Avoid excessive fluid removal with hemodialysis. Hold antihypertensives. Careful pain management choices with medications. Code(s): Z96.649 - PRESENCE OF UNSPECIFIED ARTIFICIAL HIP JOINT
--- NOTE | 2017-07-31 14:58 | PN ---
Progress Note (short form) - Note Progress Note: Renal follow up for ESRD on Hd Pt seen and examined during dialysis Pt awake and alert BP stable Goal UF is 1.5 L AVF with good flow, pressures WNL pt reports that pain control Vital Signs Temperature 98.6 F 07/31/17 14:25 Pulse Rate 113 H 07/31/17 14:25 Respiratory Rate 18 07/31/17 14:25 Blood Pressure 125/51 07/31/17 14:25 O2 Sat by Pulse Oximetry (%) 95 07/30/17 21:00 Intake & Output 07/28/17 07/29/17 07/30/17 07/31/17 23:59 23:59 23:59 23:59 Intake Total 3780 970 250 Output Total 400 620 400 Balance 3380 350 -150 Weight 91.285 kg 88.7 kg 93.071 kg 91.682 kg NAD awake and alert tachycardic CTA trace edema in LE chroic stasis changes dressing over right hip WILDA in place CBC, BMP 07/31/17 05:12 07/31/17 05:12 Current Medications Acetaminophen (Tylenol -) 325 mg PO Q4H PRN PRN Reason: PAIN Aspirin (Ecotrin -) 81 mg PO DAILY [facility] Last Admin: 07/31/17 12:39 Dose: 81 mg Bisacodyl (Dulcolax Suppository -) 10 mg RC DAILY PRN PRN Reason: CONSTIPATION Cinacalcet (Sensipar -) 30 mg PO MoWeFr@1000 [facility] Collagenase (Santyl -) 1 applic TP DAILY [facility] Furosemide (Lasix -) 80 mg PO DAILY [facility] Last Admin: 07/31/17 12:39 Dose: 80 mg Heparin Sodium (Porcine) (Heparin -) 5,000 unit SQ BID [facility] Last Admin: 07/31/17 12:38 Dose: 5,000 unit Insulin Aspart (Novolog Mix 70/30 Vial) 6 units SQ AM [facility] Last Admin: 07/31/17 06:22 Dose: Not Given Insulin Aspart (Novolog Mix 70/30 Vial) 8 units SQ HS [facility] Last Admin: 07/30/17 21:51 Dose: Not Given Insulin Aspart (Novolog Vial Sliding Scale -) 1 vial SQ BIDAC [facility] PRN Reason: Protocol Last Admin: 07/31/17 06:22 Dose: Not Given Lactated Ringer's (Lactated Ringers Solution) 1,000 ml IV Q2H PRN PRN Reason: MAP<65mm Hg OR SBP <90 Levothyroxine Sodium 200 mcg/ (Levothyroxine Sodium 25 mcg) 225 mcg PO DAILY@ 0700 [facility] Last Admin: 07/31/17 06:29 Dose: 225 mcg Magnesium Oxide (Mag-Ox -) 400 mg PO DAILY [facility] Last Admin: 07/31/17 12:39 Dose: 400 mg Ondansetron HCl (Zofran Injection) 4 mg IVPUSH Q6H PRN PRN Reason: NAUSEA AND/OR VOMITING Oxycodone HCl (Roxicodone -) 5 mg PO Q6H PRN PRN Reason: PAIN Last Admin: 07/30/17 23:24 Dose: 5 mg Pantoprazole Sodium (Protonix -) 20 mg PO DAILY [facility] Last Admin: 07/31/17 12:39 Dose: 20 mg Polyethylene Glycol (Miralax (For Daily Use) -) 17 gm PO DAILY PRN PRN Reason: CONSTIPATION Sevelamer Carbonate (Renvela -) 800 mg PO TIDCM [facility] Last Admin: 07/31/17 12:38 Dose: 800 mg 82 year old woman with PMhx of ESRD no HD x 7 years, hypertension, DM who presented with Right LE pain and weakness with some chronic swelling of the LE and admitted for degenerative changes of the right hip. 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
[2017-08-01] MEDS: oxyCODONE HCL 5 MG TABLET PO PRN ×2 (02:39→15:41)
[2017-08-01] MEDS: ACETAMINOPHEN 325 MG TABLET (FP) PO PRN ×2 (02:40→15:42)
[2017-08-01] MEDS ORDERED: LEVOTHYROXINE NA 100 MCG TABLET (FP) ONE (05:07)
[2017-08-01] MEDS ORDERED: LEVOTHYROXINE NA 25 MCG TABLET (FP) ONE (05:07)
[2017-08-01] MEDS: LEVOTHYROXINE 200 MCG, LEVOTHYROXINE 25 MCG PO SCH (06:04)
[2017-08-01] MEDS: INSULIN (NOVOLOG MIX 70/30) 100 UNITS/ML MDV SQ SCH (06:31)
[2017-08-01] MEDS: INSULIN SLIDING SCALE (NOVOLOG) 1 VIAL SQ SCH ×2 (06:31→18:00)
[2017-08-01] MEDS: SEVELAMER CARBONATE 800 MG TAB (FP) PO SCH ×3 (08:06→18:00)
--- NOTE | 2017-08-01 08:59 | DS ---
Physical Examination Vital Signs: Vital Signs Temperature 98.0 F 08/01/17 08:42 Pulse Rate 111 H 08/01/17 08:42 Respiratory Rate 18 08/01/17 08:42 Blood Pressure 119/75 08/01/17 08:42 O2 Sat by Pulse Oximetry (%) 96 07/31/17 20:20 Findings/Remarks: patient seen and examined Comfortable No new issues Pain okay Constitutional: Yes: No Distress Eyes: Yes: Conjunctiva Clear Neck: Yes: Supple, Trachea Midline Cardiovascular: Yes: Pulse Irregular Respiratory: Yes: Diminished (At bases) Extremities: Yes: Other (heel pad) Edema: No Wound/Incision: Yes: Dressing Dry and Intact Neurological: Yes: Alert Labs: CBC, BMP 07/31/17 05:12 07/31/17 05:12 Discharge Summary Reason For Visit: CELLULITIS AND ABSCESS OF RLE Current Active Problems Aortic stenosis (Acute) Atrial fibrillation (Acute) Cellulitis and abscess of right lower extremity (Acute) Congestive heart failure (CHF) (Acute) Diabetes (Acute) Fever (Acute) Hip pain, right (Acute) Hyperparathyroidism (Acute) 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 Physical therapy patient is not on anticoagulation for atrial fibrillation--- And do not want-- - had discussed risks and benefits Discharge time 35 minutes--examining documenting as well as coordinating care Condition: Improved - Instructions Referrals: Brittni Bolaños MD [Primary Care Provider] - Disposition: [facility] - Home Medications Comprehensive Discharge Medication List: Ambulatory Orders Ascorbic Acid [Vitamin C -] 500 mg PO DAILY 07/22/17 Cholecalciferol (Vitamin D3) [D3-2000] 2,000 unit PO DAILY 07/22/17 Cinacalcet HCl [Sensipar] 30 mg PO ASDIR 07/22/17 Collagenase Clostridium Hist. [Santyl] 90 gm TP DAILY 07/22/17 Furosemide [Lasix] 80 mg PO DAILY 07/22/17 Insulin Aspart Prot/Insuln Asp [Novolog Mix 70-30 Vial] 6 unit SQ AM 07/22/17 Insulin Aspart Prot/Insuln Asp [Novolog Mix 70-30 Vial] 8 unit SQ HS 07/22/17 Labetalol HCl 300 mg PO BID 07/22/17 Magnesium Oxide 400 mg PO DAILY 07/22/17 Mv-Mn/FA/Vit K/Lycop/Lut/Coq10 [Daily Multivitamin Capsule] 1 each PO DAILY Pantoprazole Sodium [Protonix] 20 mg PO DAILY 07/22/17 Sevelamer Carbonate [Renvela -] 800 mg PO TID 07/22/17 Vitamin A Palmitate [Vitamin A] 1 tab PO DAILY 07/22/17 Heparin - 5,000 unit SQ BID #60 vial 07/31/17 Levothyroxine [Synthroid -] 225 mcg PO DAILY@0700 #30 tablet 07/31/17 Oxycodone HCl [Roxicodone -] 5 mg PO Q6H PRN #60 tablet MDD 4 07/31/17 Acetaminophen [Tylenol .Regular Strength -] 325 mg PO Q4H PRN tablet 08/01/17 Aspirin Coated [Ecotrin -] 81 mg PO DAILY tablet.ec 08/01/17 Insulin Sliding Scale [Novolog Vial Sliding Scale -] 1 vial SQ BIDAC units 02/10 Mupirocin Ointment [Bactroban Ointment (For Decolonization) -] 1 applic NS BID applic 08/01/17 Polyethylene Glycol 3350 [Miralax 119 gm Btl -] 17 gm PO DAILY PRN bottle 08/01
[2017-08-01] MEDS ORDERED: PT OWN MED DRAWER 7, Y5N ONE (09:04)
[2017-08-01] MEDS: HEPARIN NA (PORCINE) 5,000 UNITS/ML 1ML VIAL SQ SCH (09:07)
[2017-08-01] MEDS: FUROSEMIDE 40 MG TABLET (FP) PO SCH (09:07)
[2017-08-01] MEDS: COLLAGENASE CLOSTRIDIUM HIST. 30 GRAMS TUBE TP SCH (09:07)
[2017-08-01] MEDS: PANTOPRAZOLE 20 MG TABLET (FP) PO SCH (09:07)
[2017-08-01] MEDS: ASPIRIN COATED 81 MG TABLET.EC PO SCH (09:07)
[2017-08-01] MEDS: MAGNESIUM OXIDE 400 MG TABLET (FP) PO SCH (09:07)
[2017-08-01] MEDS ORDERED: CINACALCET HCL 30 MG TAB (FP) PO SCH (10:00)
--- NOTE | 2017-08-01 11:10 | PN ---
Progress Note, Physician History of Present Illness: 82F w/ hx of DM, OA, ESRD on HD, and recent RLE cellulitis in 02/2017 presenting with right hip, knee, and ankle pain for 2 days. Per patient, she was in her USOH until 2 days ago when she was ready to go to bed, and her right leg began significantly hurting her. She stated that it locked up, and she was unable to move it due to pain. When her daughter came over and saw her, she decided to take her to the hospital. Pt reports a history of intermittent right leg pain which she attributes to her OA which is usually controlled with tylenol , but she reports that this pain was worse than she ever experienced. She endorses a right heel ulcer for which she sees Dr. Sinclair and receives wound care. She denies fevers, chills, numbness, weakness, chest pain, SOB, abdominal pain, n/v/d/c, and dysuria. Of note, pt was admitted for RLE cellulitis and ulcer in 02/2017. Wound cultures grew E. coli and staph coagulase negative. Pt was successfully treated with vancomycin and levaquin. PMH Atrial fibrillation Bare metal stent of ostial LCx April 01, 2015 Dr. Elizabeth CAD - mLAD 30% , oLCx 90%, RPDA 40% March 05, 2015 Dr. Elizabeth Diabetes mellitus, type II 1997 Dialysis 2010 End stage renal disease Hypertension Hypothyroidism Mildly reduced EF 48% February 2016 Moderate mean PG 23 mmHg February 2016 Severe GI bleed 2006 - Current Medication List Current Medications: Active Medications Acetaminophen (Tylenol -) 325 mg PO Q4H PRN PRN Reason: PAIN Last Admin: 08/01/17 02:40 Dose: 325 mg Aspirin (Ecotrin -) 81 mg PO DAILY [facility] Last Admin: 08/01/17 09:07 Dose: 81 mg Bisacodyl (Dulcolax Suppository -) 10 mg RC DAILY PRN PRN Reason: CONSTIPATION Cinacalcet (Sensipar -) 30 mg PO MoWeFr@1000 [facility] Last Admin: 08/01/17 09:08 Dose: 30 mg Collagenase (Santyl -) 1 applic TP DAILY [facility] Last Admin: 08/01/17 09:07 Dose: 1 applic Furosemide (Lasix -) 80 mg PO DAILY [facility] Last Admin: 08/01/17 09:07 Dose: 80 mg Heparin Sodium (Porcine) (Heparin -) 5,000 unit SQ BID [facility] Last Admin: 08/01/17 09:07 Dose: 5,000 unit Insulin Aspart (Novolog Mix 70/30 Vial) 6 units SQ AM [facility] Last Admin: 08/01/17 06:31 Dose: Not Given Insulin Aspart (Novolog Mix 70/30 Vial) 8 units SQ HS [facility] Last Admin: 07/31/17 21:04 Dose: 8 units Insulin Aspart (Novolog Vial Sliding Scale -) 1 vial SQ BIDAC [facility] PRN Reason: Protocol Last Admin: 08/01/17 06:31 Dose: Not Given Lactated Ringer's (Lactated Ringers Solution) 1,000 ml IV Q2H PRN PRN Reason: MAP<65mm Hg OR SBP <90 Levothyroxine Sodium 200 mcg/ (Levothyroxine Sodium 25 mcg) 225 mcg PO DAILY@ 0700 [facility] Last Admin: 08/01/17 06:04 Dose: 225 mcg Magnesium Oxide (Mag-Ox -) 400 mg PO DAILY [facility] Last Admin: 08/01/17 09:07 Dose: 400 mg Ondansetron HCl (Zofran Injection) 4 mg IVPUSH Q6H PRN PRN Reason: NAUSEA AND/OR VOMITING Oxycodone HCl (Roxicodone -) 5 mg PO Q6H PRN PRN Reason: PAIN Last Admin: 08/01/17 02:39 Dose: 5 mg Pantoprazole Sodium (Protonix -) 20 mg PO DAILY [facility] Last Admin: 08/01/17 09:07 Dose: 20 mg Polyethylene Glycol (Miralax (For Daily Use) -) 17 gm PO DAILY PRN PRN Reason: CONSTIPATION Sevelamer Carbonate (Renvela -) 800 mg PO TIDCM [facility] Last Admin: 08/01/17 08:06 Dose: 800 mg - Objective Vital Signs: Vital Signs Temperature 98.0 F 08/01/17 08:42 Pulse Rate 111 H 08/01/17 08:42 Respiratory Rate 18 08/01/17 08:42 Blood Pressure 119/75 08/01/17 08:42 O2 Sat by Pulse Oximetry (%) 96 07/31/17 20:20 Eyes: Yes: WNL, Conjunctiva Clear, EOM Intact HENT: Yes: WNL, Atraumatic, Normocephalic Neck: Yes: WNL, Supple, Trachea Midline Cardiovascular: Yes: WNL, Regular Rate and Rhythm Respiratory: Yes: WNL, Regular, CTA Bilaterally Gastrointestinal: Yes: WNL, Normal Bowel Sounds Genitourinary: Yes: WNL Musculoskeletal: Yes: WNL Extremities: Yes: WNL Edema: No Integumentary: Yes: WNL Neurological: Yes: WNL, Alert, Oriented ...Motor Strength: WNL Psychiatric: Yes: WNL Labs: CBC, BMP 07/31/17 05:12 07/31/17 05:12 INR, PTT INR 1.22 (0.82-1.09) H 07/27/17 06:25 Assessment/Plan - Problems (1) Systolic and diastolic CHF w/reduced LV function, NYHA class 4 Assessment/Plan: Recommend changing labetolol to carvedilol (presently off antihypertensives, except furosemide, due to relatively low BP). Would eventually add lisinopril if BP allows (systolic CHF; DM). F/u as outpt regarding poor LVEF, likely significant aortic stenosis. Code(s): I50.40 - UNSP COMBINED SYSTOLIC AND DIASTOLIC (CONGESTIVE) HRT FAIL (2) Atrial fibrillation Assessment/Plan: On beta blockers. Hx of bleeding with ?warfarin in the past, as well as adverse reaction to clopidogrel. She has been on ASA for years. Code(s): I48.91 - UNSPECIFIED ATRIAL FIBRILLATION (3) Cellulitis and abscess of right lower extremity Code(s): L03.115 - CELLULITIS OF RIGHT LOWER LIMB; L02.415 - CUTANEOUS ABSCESS OF RIGHT LOWER LIMB (4) Diabetes Code(s): E11.9 - TYPE 2 DIABETES MELLITUS WITHOUT COMPLICATIONS (5) Hip pain, right Assessment/Plan: S/p hip replacement. 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 (7) CAD (coronary artery disease) Code(s): I25.10 - ATHSCL HEART DISEASE OF [place] CORONARY ARTERY W/O ANG PCTRS (8) Diabetes 1.5, managed as type 1 Code(s): E10.9 - TYPE 1 DIABETES MELLITUS WITHOUT COMPLICATIONS (9) ESRD (end stage renal disease) on dialysis Code(s): N18.6 - END STAGE RENAL DISEASE; Z99.2 - DEPENDENCE ON RENAL DIALYSIS (10) Hypertension Code(s): I10 - ESSENTIAL (PRIMARY) HYPERTENSION (11) Aortic stenosis Assessment/Plan: Workup in the future for what is likely now severe aortic stenosis (moderate in 2016) combined with severely reduced LVEF in the setting of coronary artery disease (s/p RCA stent 2016) and symptoms (denies chest pain, but her niece says that pt has been having increasingly severe dyspnea and "lips turn blue" over the past 2-3 months with even mild physical exertion). Code(s): I35.0 - NONRHEUMATIC AORTIC (VALVE) STENOSIS (12) Hyperparathyroidism Code(s): E21.3 - HYPERPARATHYROIDISM, UNSPECIFIED (13) S/P hip replacement Assessment/Plan: avoid excessive dehydration. Blood loss -->2 units PRBCs janine-op, and awaiting a 3rd unit. Avoid excessive fluid removal with hemodialysis. Hold antihypertensives. Careful pain management choices with medications. Code(s): Z96.649 - PRESENCE OF UNSPECIFIED ARTIFICIAL HIP JOINT
--- NOTE | 2017-08-01 13:04 | PN ---
Progress Note (short form) - Note Progress Note: Renal follow up for ESRD on Hd Pt seen and examined at the bedside no acute complaints no sob, chest pain, fever, chills s/p dialysis yesterday Vital Signs Temperature 98.0 F 08/01/17 08:42 Pulse Rate 111 H 08/01/17 08:42 Respiratory Rate 18 08/01/17 08:42 Blood Pressure 119/75 08/01/17 08:42 O2 Sat by Pulse Oximetry (%) 97 08/01/17 09:00 Intake & Output 07/29/17 07/30/17 07/31/17 08/01/17 23:59 23:59 23:59 23:59 Intake Total 970 250 200 Output Total 620 400 Balance 350 -150 200 Weight 88.7 kg 93.071 kg 91.682 kg 88.932 kg NAD awake and alert tachycardic CTA trace edema in LE chroic stasis changes dressing over right hip WILDA in place CBC, BMP 07/31/17 05:12 07/31/17 05:12 Current Medications Acetaminophen (Tylenol -) 325 mg PO Q4H PRN PRN Reason: PAIN Last Admin: 08/01/17 02:40 Dose: 325 mg Aspirin (Ecotrin -) 81 mg PO DAILY [facility] Last Admin: 08/01/17 09:07 Dose: 81 mg Bisacodyl (Dulcolax Suppository -) 10 mg RC DAILY PRN PRN Reason: CONSTIPATION Cinacalcet (Sensipar -) 30 mg PO MoWeFr@1000 [facility] Last Admin: 08/01/17 09:08 Dose: 30 mg Collagenase (Santyl -) 1 applic TP DAILY [facility] Last Admin: 08/01/17 09:07 Dose: 1 applic Furosemide (Lasix -) 80 mg PO DAILY [facility] Last Admin: 08/01/17 09:07 Dose: 80 mg Heparin Sodium (Porcine) (Heparin -) 5,000 unit SQ BID [facility] Last Admin: 08/01/17 09:07 Dose: 5,000 unit Insulin Aspart (Novolog Mix 70/30 Vial) 6 units SQ AM [facility] Last Admin: 08/01/17 06:31 Dose: Not Given Insulin Aspart (Novolog Mix 70/30 Vial) 8 units SQ HS [facility] Last Admin: 07/31/17 21:04 Dose: 8 units Insulin Aspart (Novolog Vial Sliding Scale -) 1 vial SQ BIDAC [facility] PRN Reason: Protocol Last Admin: 08/01/17 06:31 Dose: Not Given Lactated Ringer's (Lactated Ringers Solution) 1,000 ml IV Q2H PRN PRN Reason: MAP<65mm Hg OR SBP <90 Levothyroxine Sodium 200 mcg/ (Levothyroxine Sodium 25 mcg) 225 mcg PO DAILY@ 0700 [facility] Last Admin: 08/01/17 06:04 Dose: 225 mcg Magnesium Oxide (Mag-Ox -) 400 mg PO DAILY [facility] Last Admin: 08/01/17 09:07 Dose: 400 mg Ondansetron HCl (Zofran Injection) 4 mg IVPUSH Q6H PRN PRN Reason: NAUSEA AND/OR VOMITING Oxycodone HCl (Roxicodone -) 5 mg PO Q6H PRN PRN Reason: PAIN Last Admin: 08/01/17 02:39 Dose: 5 mg Pantoprazole Sodium (Protonix -) 20 mg PO DAILY [facility] Last Admin: 08/01/17 09:07 Dose: 20 mg Polyethylene Glycol (Miralax (For Daily Use) -) 17 gm PO DAILY PRN PRN Reason: CONSTIPATION Sevelamer Carbonate (Renvela -) 800 mg PO TIDCM [facility] Last Admin: 08/01/17 12:15 Dose: 800 mg 82 year old woman with PMhx of ESRD no HD x 7 years, hypertension, DM who presented with Right LE pain and weakness with some chronic swelling of the LE and admitted for degenerative changes of the right hip. 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
[2017-08-01 14:26] VITALS: BP 115/73; PULSE 112; TEMP 98.1
--- NOTE | 2017-08-01 15:47 | PATH ---
Surgical Pathology Report Patient Name: LEIDY POWERS [facility]. Rec. #: [id number] /Age/Gender: 1935 (Age: 82) / F Account: [id number] Location: [address] [place] [address] Taken: 07/27/2017 Received: 07/27/2017 Reported: 08/01/2017 Physicians: Deng Benson M.D. 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 FEMORAL HEAD, RIGHT, TOTAL HIP REPLACEMENT: FEMORAL HEAD SHOWING DEFECT WITH OLD HEMORRHAGE AND GRANULATION TISSUE FORMATION, CONSISTENT WITH AVASCULAR NECROSIS. DEGENERATIVE JOINT DISEASE. B. GAMMA NAIL HARDWARE RIGHT HIP, REMOVAL: HARDWARE, DESCRIBED (GROSS EXAMINATION ONLY). Electronically Signed Allison Lopez M.D. Gross Description A. Received in formalin labeled "femoral head," is a 3.0 x 2.7 x 2.5 cm markedly deformed appearing femoral head with a 2.5 cm in length portion of femoral neck attached. The margin of resection is red-brown with a focal defect. The articular surface displays a 2.6 cm in greatest dimension area of eburnation. The remaining articular surface is akers-brown and granular. The underlying trabecular bone is focally hemorrhagic. A sales representative health insurance section is submitted in one cassette, following decalcification B. Received fresh labeled "removed gamma nail hardware," is a 17 cm in length eaton metallic delgado with a 10.2 cm in length attached marie metallic screw. Separately received within the same container is an additional 3.2 cm in length eaton metallic screw. No soft tissue is present. No sections are submitted, gross only. 07/30/201707/30/2017
== END 2017-08-01 18:48 | DRG 469 ==
LOC: JER 13:17 → JERBED 17:06 → J5S 19:16 → JICU 07-27 14:26 → J6S 07-30 17:32
PROVIDERS: ADMIT Internal Medicine; ATTEND Internal Medicine
PROC: 5A1D70Z Performance of Urinary Filtration, Intermittent, Less than 6 Hours Per Day (ICD-10-PCS; 2017-07-24)
PROC: 30233N1 Transfusion of Nonautologous Red Blood Cells into Peripheral Vein, Percutaneous Approach (ICD-10-PCS; 2017-07-27)
PROC: 0SR90JZ Replacement of Right Hip Joint with Synthetic Substitute, Open Approach (ICD-10-PCS; principal; 2017-07-27 08:00)
PROC: 0SP904Z Removal of Internal Fixation Device from Right Hip Joint, Open Approach (ICD-10-PCS; 2017-07-27 08:00)
DX: T84.090A Other mechanical complication of internal right hip prosthesis, initial encounter (principal); N18.6 End stage renal disease; L97.419 Non-pressure chronic ulcer of right heel and midfoot with unspecified severity; M87.88 Other osteonecrosis, other site; I13.2 Hypertensive heart and chronic kidney disease with heart failure and with stage 5 chronic kidney disease, or end stage renal disease; I50.42 Chronic combined systolic (congestive) and diastolic (congestive) heart failure; D62 Acute posthemorrhagic anemia; I87.2 Venous insufficiency (chronic) (peripheral); Z88.0 Allergy status to penicillin; Z79.4 Long term (current) use of insulin; I25.10 Atherosclerotic heart disease of native coronary artery without angina pectoris; E11.621 Type 2 diabetes mellitus with foot ulcer; E03.9 Hypothyroidism, unspecified; E11.22 Type 2 diabetes mellitus with diabetic chronic kidney disease; Z99.2 Dependence on renal dialysis; E87.5 Hyperkalemia; I48.0 Paroxysmal atrial fibrillation; K59.00 Constipation, unspecified; I35.0 Nonrheumatic aortic (valve) stenosis; Y83.8 Other surgical procedures as the cause of abnormal reaction of the patient, or of later complication, without mention of misadventure at the time of the procedure; R50.9 Fever, unspecified; M16.11 Unilateral primary osteoarthritis, right hip
CPT/HCPCS: 36415; 36430; 36511; 71010-TC; 73502-TC-RT; 73560-TC-RT; 73610-TC-RT; 73700-TC-RT; 80048; 80053; 82565; 83735; 83880; 83970; 84100; 84439; 84443; 84520; 85025; 85027; 85610; 86704; 86706; 86708; 86803; 86850; 86900; 86901; 86922; 87040; 87340; 88300-TC; 88305-TC; 88311-TC; 93005; 93010; 93306-TC; 93970-TC; 97116-GP; 97161-GP; 99283-25; G0480; J0885; J1644; J2597; P9038; P9047; P9058

== ENCOUNTER 2017-08-14 11:52 | Inpatient (IN) | payer OTHER, BC ==
--- NOTE | 2017-08-14 12:10 | PDOC ---
History of Present Illness - General History Source: Patient Exam Limitations: No Limitations - History of Present Illness Initial Comments: 08/14/17 12:53 The patient is an 82 year old female with a significant PMH of ESRD on dialysis , osteoarthritis, HTN, diabetes, hypercholesterolemia, hemorrhoids, and recent full right hip replacement (07/31/2017) who presents to the emergency department with rectal bleeding. The patient describes the blood as bright red and reports it began s/p dialysis. The patient reports she is on Heparin for her dialysis and takes baby aspirin. She notes that she was on Plavix in the recent past but is not on it anymore. The patient denies chest pain, shortness of breath, headache and dizziness. Denies fever, chills, nausea, vomit, diarrhea and constipation. Denies dysuria, frequency, urgency and hematuria. Allergies: Aspirin, Erythromycin, Penicillins, Verapamil Past surgical history: Full right hip replacement (07/31/2017). Cardiac surgery. Social history: No reported cigarette, alcohol, or drug use. PCP: Dr. Bolaños (currently under Dr. Chilel [facility]) <Maksim Hull - Last Filed: 08/14/17 16:42> <Pat Maya - Last Filed: 08/14/17 18:32> - General Chief Complaint: Rectal Bleed Stated Complaint: RECTAL BLEED Time Seen by Provider: 08/14/17 12:10 Past History <Maksim Hull - Last Filed: 08/14/17 16:42> - Past Medical History Cardiac Disorders: Yes (A-FIB 2000) COPD: No Diabetes: Yes Dialysis: Yes () HTN: Yes Hypercholesterolemia: Yes Thyroid Disease: Yes - Surgical History Cardiac Surgery: Yes Orthopedic Surgery: Yes - Suicide/Smoking/Psychosocial Hx Smoking Status: No Smoking History: Never smoked Have you smoked in the past 12 months: No Number of Cigarettes Smoked Daily: 0 Hx Alcohol Use: No Drug/Substance Use Hx: No Substance Use Type: None Hx Substance Use Treatment: No <Pat Maya - Last Filed: 08/14/17 18:32> - Past Medical History Allergies/Adverse Reactions: Allergies Allergy/AdvReac Type Severity Reaction Status Date / Time aspirin Allergy Verified 07/22/17 13:34 erythromycin base Allergy Verified 07/22/17 13:34 Penicillins Allergy Verified 07/22/17 13:34 verapamil [Verapamil] Allergy Verified 07/22/17 13:34 Home Medications: Ambulatory Orders Ascorbic Acid [Vitamin C -] 500 mg PO DAILY 07/22/17 Cholecalciferol (Vitamin D3) [D3-2000] 2,000 unit PO DAILY 07/22/17 Cinacalcet HCl [Sensipar] 30 mg PO ASDIR 07/22/17 Collagenase Clostridium Hist. [Santyl] 90 gm TP DAILY 07/22/17 Furosemide [Lasix] 80 mg PO DAILY 07/22/17 Insulin Aspart Prot/Insuln Asp [Novolog Mix 70-30 Vial] 6 unit SQ AM 07/22/17 Insulin Aspart Prot/Insuln Asp [Novolog Mix 70-30 Vial] 8 unit SQ HS 07/22/17 Labetalol HCl 300 mg PO BID 07/22/17 Magnesium Oxide 400 mg PO DAILY 07/22/17 Mv-Min/Folic/Vit K/Lycop/Coq10 [Daily Multivitamin Capsule] 1 each PO DAILY Pantoprazole Sodium [Protonix] 20 mg PO DAILY 07/22/17 Sevelamer Carbonate [Renvela -] 800 mg PO TID 07/22/17 Vitamin A Palmitate [Vitamin A] 1 tab PO DAILY 07/22/17 Heparin - 5,000 unit SQ BID #60 vial 07/31/17 Levothyroxine [Synthroid -] 225 mcg PO DAILY@0700 #30 tablet 07/31/17 Oxycodone HCl [Roxicodone -] 5 mg PO Q6H PRN #60 tablet MDD 4 07/31/17 Acetaminophen [Tylenol .Regular Strength -] 325 mg PO Q4H PRN tablet 08/01/17 Aspirin Coated [Ecotrin -] 81 mg PO DAILY tablet.ec 08/01/17 Insulin Sliding Scale [Novolog Vial Sliding Scale -] 1 vial SQ BIDAC units 02/10 Mupirocin Ointment [Bactroban Ointment (For Decolonization) -] 1 applic NS BID applic 08/01/17 Polyethylene Glycol 3350 [Miralax 119 gm Btl -] 17 gm PO DAILY PRN bottle 08/01 Review of Systems - Review of Systems Able to Perform ROS?: Yes Comments:: 08/14/17 12:53 GENERAL/CONSTITUTIONAL: No fever or chills. No weakness. HEAD, EYES, EARS, NOSE AND THROAT: No change in vision. No ear pain or discharge. No sore throat. CARDIOVASCULAR: No chest pain or shortness of breath. RESPIRATORY: No cough, wheezing, or hemoptysis. GASTROINTESTINAL: (+) Bright red rectal bleeding. No nausea, vomiting, diarrhea or constipation. GENITOURINARY: No dysuria, frequency, or change in urination. MUSCULOSKELETAL: No joint or muscle swelling or pain. No neck or back pain. SKIN: No rash NEUROLOGIC: No headache, vertigo, loss of consciousness, or change in strength/ sensation. ENDOCRINE: No increased thirst. No abnormal weight change. HEMATOLOGIC/LYMPHATIC: No anemia, easy bleeding, or history of blood clots. ALLERGIC/IMMUNOLOGIC: No hives or skin allergy. <Maksim Hull - Last Filed: 08/14/17 16:42> *Physical Exam - Vital Signs Last Vital Signs Temp Pulse Resp BP Pulse Ox 97.5 F L 95 H 18 127/71 100 08/14/17 11:56 08/14/17 11:56 08/14/17 11:56 08/14/17 11:56 08/14/17 11:56 <Maksim Hull - Last Filed: 08/14/17 16:42> - Vital Signs Last Vital Signs Temp Pulse Resp BP Pulse Ox 97.5 F L 95 H 18 127/71 100 08/14/17 11:56 08/14/17 11:56 08/14/17 11:56 08/14/17 11:56 08/14/17 11:56 - Physical Exam Comments: GENERAL: Awake, alert, and fully oriented, in no acute distress HEAD: No signs of trauma EYES: PERRLA, EOMI, sclera anicteric, conjunctiva clear ENT: Auricles normal inspection, hearing grossly normal, nares patent, oropharynx clear without exudates. Moist mucosa NECK: Normal ROM, supple, no lymphadenopathy, JVD, or masses LUNGS: Breath sounds equal, clear to auscultation bilaterally. No wheezes, and no crackles HEART: Regular rate and rhythm, normal S1 and S2, no murmurs, rubs or gallops ABDOMEN: Soft, nontender, normoactive bowel sounds. No guarding, no rebound. No masses EXTREMITIES: Normal range of motion, no edema. No clubbing or cyanosis. No cords, erythema, or tenderness NEUROLOGICAL: Cranial nerves II through XII grossly intact. Normal speech, normal gait SKIN: Warm, Dry, normal turgor. R thigh wound with dressing in place, +well- demarcated area of erythema surrounding the surgical site. Corine in place. No drainage. +R heel ulcer, no active drainage, however, with foul-smelling dressing. RECTAL: +Large blood clots roughly the size of an orange. <Pat Maya - Last Filed: 08/14/17 18:32> ED Treatment Course - LABORATORY CBC & Chemistry Diagram: 08/14/17 12:42 08/14/17 12:42 - ADDITIONAL ORDERS Additional order review: Laboratory Results 08/14/17 12:32 Stool Occult Blood Positive - Consult/PCP Case discussed with personal care physician: Mary Jo Chilel - Additional Consults Time Called: 16:35 Consult/PCP: Dr. Caal (Gastroenterology) <Maksim Hull - Last Filed: 08/14/17 16:42> - LABORATORY CBC & Chemistry Diagram: 08/14/17 12:42 08/14/17 12:42 <Pat Maya - Last Filed: 08/14/17 18:32> Medical Decision Making - Critical Care Time Total Critical Care Time (minutes): 35 Critical Care Statement: The care of this patient involved high complexity decision making to prevent further life threatening deterioration of the patient 's condition and/or to evaluate & treat vital organ system(s) failure or risk of failure. - Medical Decision Making 08/14/17 14:15 Case d/w Dr. Chilel, I will discuss with ICU for admission for LGIB. 08/14/17 16:39 Dr. Tracy dodson as per Dr. Chilel, Dr. Caal is covering. Will evaluate. I have not transfused pRBCs yet, however, they are prepared. She is currently at her baseline Hb, but given the amount of bleeding, I expect a drop in Hb. She will be transfused platelets in ED for hx aspirin. <Pat Maya - Last Filed: 08/14/17 18:32> *DC/Admit/Observation/Transfer - Attestations Scribe Attestion: 08/14/17 12:54 Documentation prepared by Maksim Hull, acting as medical sonographer for Pat Maya MD. <Maksim Hull - Last Filed: 08/14/17 16:42> - Discharge Dispostion Admit: Yes <Pat Maya - Last Filed: 08/14/17 18:32> Diagnosis at time of Disposition: Lower GI bleed, ESRD (end stage renal disease) on dialysis - Discharge Dispostion Condition at time of disposition: Guarded
[2017-08-14 12:49] LABS: BASO % 0.6 % (0-2.0); EOS % 3.7 % (0-4.5); HEMATOCRIT 30.6 % (32.4-45.2); HEMOGLOBIN 9.8 GM/dL (10.7-15.3); MCH 32.8 pg (25.7-33.7); MCHC 32.1 g/dl (32.0-36.0); MEAN PLT VOLUME 7.4 fl (7.5-11.1); MONO % 8.9 % (3.8-10.2); NEUT % 76.8 % (42.8-82.8); PLATELET COUNT 192 K/MM3 (134-434); RDW 21.4 % (11.6-15.6); WHITE BLOOD COUNT 6.2 K/mm3 (4.0-10.0)
[2017-08-14 13:18] LABS: ALBUMIN 2.1 g/dl (3.4-5.0); ALK PHOS 209 U/L (45-117); ANION GAP 9 (8-16); BILIRUBIN,TOTAL 0.9 mg/dL (0.2-1.0); BLOOD UREA NITROGEN 22 mg/dL (7-18); CALCIUM 7.8 mg/dL (8.5-10.1); CHLORIDE 101 mmol/L (98-107); CO2 28 mmol/L (21-32); GLUCOSE,RANDOM 57 mg/dL (74-106); POTASSIUM 3.4 mmol/L (3.5-5.1); SGOT/AST 19 U/L (15-37); SGPT/ALT 9 U/L (12-78); SODIUM 138 mmol/L (136-145)
[2017-08-14 13:24] LABS: INR 1.24 (0.82-1.09)
[2017-08-14] MEDS ORDERED: oxyCODONE HCL 5 MG TABLET PO ONE (13:42)
[2017-08-14] MEDS ORDERED: oxyCODONE HCL 5 MG TABLET ONE ×2 (13:47→19:36)
--- NOTE | 2017-08-14 15:48 | PN ---
Teaching Attending Note ATTENDING PHYSICIAN STATEMENT I saw and evaluated the patient. I reviewed the resident's note and discussed the case with the resident. I agree with the resident's findings and plan as documented. SUBJECTIVE: 82yo female with h/o HTN, DM, hypercholesterolemia, CAD s/p stent, LV systolic dysfunction, mitral regurgitation, aortic stenosis, ESRD on HD who presents with bright red blood per rectum starting yesterday. Denies any prior rectal bleeding. Had an endoscopy/colonoscopy in 2006 which was reportedly unremarkable. She does receive heparin during her HD sessions and she gets prophylactic heparin at her rehab, where she is recovering from hip surgery. She previously was on coumadin for paroxysmal atrial fibrillation but was stopped after hematemesis. Was previously on plavix after a cardiac stent placement but was stopped due to frequent bruising. Denies shortness of breath or chest pain. No nausea, vomiting or abdominal pain. OBJECTIVE: Last Vital Signs Temp Pulse Resp BP Pulse Ox 97.5 F L 95 H 18 127/71 100 08/14/17 11:56 08/14/17 11:56 08/14/17 11:56 08/14/17 11:56 08/14/17 11:56 Intake & Output 08/11/17 08/12/17 08/13/17 08/14/17 23:59 23:59 23:59 23:59 Weight 190 lb Gen: NAD at rest Heart: RRR, systolic murmur Lung: decreased breath sounds at the bases Abd: soft, nontender Ext: + edema CBC, BMP 08/14/17 12:42 08/14/17 12:42 ASSESSMENT AND PLAN: GI Bleed likely Lower Anemia ESRD on HD LV Systolic Dysfunction Mitral Regurgitation Aortic Stenosis HTN DM - monitor H/H - transfuse as needed - ddAVP if continues to bleed - protonix - GI evaluation - HD per renal - hold all anticoagulation, antiplatelets - NPO for now - ensure large bore peripheral access - monitor in ICU for now
--- NOTE | 2017-08-14 18:37 | HP ---
Admitting History and Physical - Primary Care Physician PCP: Brittni Bolaños - Admission Chief Complaint: rectal bleed History of Present Illness: The patient is an 82 year old female with a significant PMH of ESRD on dialysis , osteoarthritis, HTN, diabetes, hypercholesterolemia, hemorrhoids, and recent full right hip replacement (07/31/2017) who presents to the emergency department with rectal bleeding. The patient describes the blood as bright red and reports it began s/p dialysis. The patient reports she is on Heparin for her dialysis and takes baby aspirin. pt found to have bright red blood in stool in er pt given platlets pt admiited under icu care--currently in er. pt seen/ examined in er events noted. case discussed with er physician. at present denies cp/sob/abd pain. denies n/v c/c- pain in right hip area Past surgical history: Full right hip replacement (07/31/2017). Cardiac surgery. Social history: No reported cigarette, alcohol, or drug use. Pt well known to me from recent hospitalization. History Source: Patient, Medical Record Limitations to Obtaining History: No Limitations - Past Medical History Cardiovascular: Yes: AFIB (paroxysmal), CAD, HTN Renal/: Yes: Renal Failure, Hemodialysis Endocrine: Yes: Diabetes Mellitus - Past Surgical History Past Surgical History: Yes: Joint Replacement (rt hip- 2009, ankle fracture , s/ p plates-- 2005) - Smoking History Smoking history: Never smoked Have you smoked in the past 12 months: No Aproximately how many cigarettes per day: 0 - Alcohol/Substance Use Hx Alcohol Use: No Home Medications - Allergies Allergies/Adverse Reactions: Allergies Allergy/AdvReac Type Severity Reaction Status Date / Time erythromycin base Allergy Verified 07/22/17 13:34 Penicillins Allergy Verified 07/22/17 13:34 verapamil [Verapamil] Allergy Verified 07/22/17 13:34 - Home Medications Home Medications: Ambulatory Orders Ascorbic Acid [Vitamin C -] 500 mg PO DAILY 07/22/17 Cholecalciferol (Vitamin D3) [D3-2000] 2,000 unit PO DAILY 07/22/17 Cinacalcet HCl [Sensipar] 30 mg PO ASDIR 07/22/17 Collagenase Clostridium Hist. [Santyl] 90 gm TP DAILY 07/22/17 Furosemide [Lasix] 80 mg PO DAILY 07/22/17 Insulin Aspart Prot/Insuln Asp [Novolog Mix 70-30 Vial] 6 unit SQ AM 07/22/17 Insulin Aspart Prot/Insuln Asp [Novolog Mix 70-30 Vial] 8 unit SQ HS 07/22/17 Labetalol HCl 300 mg PO BID 07/22/17 Magnesium Oxide 400 mg PO DAILY 07/22/17 Mv-Min/Folic/Vit K/Lycop/Coq10 [Daily Multivitamin Capsule] 1 each PO DAILY Pantoprazole Sodium [Protonix] 20 mg PO DAILY 07/22/17 Sevelamer Carbonate [Renvela -] 800 mg PO TID 07/22/17 Vitamin A Palmitate [Vitamin A] 1 tab PO DAILY 07/22/17 Heparin - 5,000 unit SQ BID #60 vial 07/31/17 Levothyroxine [Synthroid -] 225 mcg PO DAILY@0700 #30 tablet 07/31/17 Oxycodone HCl [Roxicodone -] 5 mg PO Q6H PRN #60 tablet MDD 4 07/31/17 Acetaminophen [Tylenol .Regular Strength -] 325 mg PO Q4H PRN tablet 08/01/17 Aspirin Coated [Ecotrin -] 81 mg PO DAILY tablet.ec 08/01/17 Insulin Sliding Scale [Novolog Vial Sliding Scale -] 1 vial SQ BIDAC units 02/10 Mupirocin Ointment [Bactroban Ointment (For Decolonization) -] 1 applic NS BID applic 08/01/17 Polyethylene Glycol 3350 [Miralax 119 gm Btl -] 17 gm PO DAILY PRN bottle 08/01 Review of Systems - Review of Systems Constitutional: reports: No Symptoms Eyes: reports: No Symptoms Neck: reports: No Symptoms Cardiovascular: reports: No Symptoms Respiratory: reports: No Symptoms Gastrointestinal: reports: No Symptoms Genitourinary: reports: No Symptoms Musculoskeletal: reports: Joint Pain Integumentary: reports: Blister (right heel) Neurological: reports: No Symptoms Physical Examination Vital Signs: Vital Signs Temperature 97.5 F L 08/14/17 11:56 Pulse Rate 95 H 08/14/17 11:56 Respiratory Rate 18 08/14/17 11:56 Blood Pressure 127/71 08/14/17 11:56 O2 Sat by Pulse Oximetry (%) 100 08/14/17 11:56 Constitutional: Yes: Mild Distress Eyes: Yes: Conjunctiva Clear Neck: Yes: Supple Cardiovascular: Yes: Pulse Irregular Respiratory: Yes: CTA Bilaterally Gastrointestinal: Yes: Soft Edema: No Wound/Incision: Yes: Other (right heel) Neurological: Yes: Alert Labs: CBC, BMP 08/14/17 12:42 08/14/17 12:42 Imaging - Results Chest X-ray: Report Reviewed EKG: Report Reviewed Problem List - Problems (1) Pneumonia Code(s): J18.9 - PNEUMONIA, UNSPECIFIED ORGANISM (2) ESRD (end stage renal disease) on dialysis Code(s): N18.6 - END STAGE RENAL DISEASE; Z99.2 - DEPENDENCE ON RENAL DIALYSIS (3) Lower GI bleed Code(s): K92.2 - GASTROINTESTINAL HEMORRHAGE, UNSPECIFIED (4) Aortic stenosis Code(s): I35.0 - NONRHEUMATIC AORTIC (VALVE) STENOSIS (5) Atrial fibrillation Code(s): I48.91 - UNSPECIFIED ATRIAL FIBRILLATION (6) CAD (coronary artery disease) Code(s): I25.10 - ATHSCL HEART DISEASE OF [place] CORONARY ARTERY W/O ANG PCTRS (7) Diabetes Code(s): E11.9 - TYPE 2 DIABETES MELLITUS WITHOUT COMPLICATIONS (8) Hip pain, right Code(s): M25.551 - PAIN IN RIGHT HIP (9) S/P hip replacement Code(s): Z96.649 - PRESENCE OF UNSPECIFIED ARTIFICIAL HIP JOINT Assessment/Plan admit icu close monitoring transfuse prn. gi consult abx pain control renal consult for dialysis condition gaurded but stable. will follow cc time 35 min.
--- NOTE | 2017-08-14 18:46 | CON.GI ---
Consult Consult Specialty:: GI Referred by:: Dr Pat Maya Reason for Consultation:: lower GI bleed - History of Present Illness Chief Complaint: 82 y.o.F, ESRD on HD x 7 yrs, cardiac stenting 03/2017, hip replacement 07/27/17, constipated post hip replacement, had BRBPR this a.m. after dialysis. Denies fever, chills, abdominal pain. Said she has been straining to have bowel movements; says she was initially given MOM which worked well for her but was discontinued. - History Source History Provided By: Patient - Past Medical History Cardio/Vascular: Yes: AFIB (paroxysmal), CAD, HTN Renal/: Yes: Renal Failure, Hemodialysis Endocrine: Yes: Diabetes Mellitus - Past Surgical History Past Surgical History: Yes: Joint Replacement (rt hip- 2009, ankle fracture , s/ p plates-- 2005) - Alcohol/Substance Use Hx Alcohol Use: No - Smoking History Smoking history: Never smoked Have you smoked in the past 12 months: No Aproximately how many cigarettes per day: 0 Home Medications - Allergies Allergies/Adverse Reactions: Allergies Allergy/AdvReac Type Severity Reaction Status Date / Time aspirin Allergy Verified 07/22/17 13:34 erythromycin base Allergy Verified 07/22/17 13:34 Penicillins Allergy Verified 07/22/17 13:34 verapamil [Verapamil] Allergy Verified 07/22/17 13:34 - Home Medications Home Medications: Ambulatory Orders Ascorbic Acid [Vitamin C -] 500 mg PO DAILY 07/22/17 Cholecalciferol (Vitamin D3) [D3-2000] 2,000 unit PO DAILY 07/22/17 Cinacalcet HCl [Sensipar] 30 mg PO ASDIR 07/22/17 Collagenase Clostridium Hist. [Santyl] 90 gm TP DAILY 07/22/17 Furosemide [Lasix] 80 mg PO DAILY 07/22/17 Insulin Aspart Prot/Insuln Asp [Novolog Mix 70-30 Vial] 6 unit SQ AM 07/22/17 Insulin Aspart Prot/Insuln Asp [Novolog Mix 70-30 Vial] 8 unit SQ HS 07/22/17 Labetalol HCl 300 mg PO BID 07/22/17 Magnesium Oxide 400 mg PO DAILY 07/22/17 Mv-Min/Folic/Vit K/Lycop/Coq10 [Daily Multivitamin Capsule] 1 each PO DAILY Pantoprazole Sodium [Protonix] 20 mg PO DAILY 07/22/17 Sevelamer Carbonate [Renvela -] 800 mg PO TID 07/22/17 Vitamin A Palmitate [Vitamin A] 1 tab PO DAILY 07/22/17 Heparin - 5,000 unit SQ BID #60 vial 07/31/17 Levothyroxine [Synthroid -] 225 mcg PO DAILY@0700 #30 tablet 07/31/17 Oxycodone HCl [Roxicodone -] 5 mg PO Q6H PRN #60 tablet MDD 4 07/31/17 Acetaminophen [Tylenol .Regular Strength -] 325 mg PO Q4H PRN tablet 08/01/17 Aspirin Coated [Ecotrin -] 81 mg PO DAILY tablet.ec 08/01/17 Insulin Sliding Scale [Novolog Vial Sliding Scale -] 1 vial SQ BIDAC units 02/10 Mupirocin Ointment [Bactroban Ointment (For Decolonization) -] 1 applic NS BID applic 08/01/17 Polyethylene Glycol 3350 [Miralax 119 gm Btl -] 17 gm PO DAILY PRN bottle 08/01 Physical Exam-GI Vital Signs: Vital Signs Temperature 97.5 F L 08/14/17 11:56 Pulse Rate 95 H 08/14/17 11:56 Respiratory Rate 18 08/14/17 11:56 Blood Pressure 127/71 08/14/17 11:56 O2 Sat by Pulse Oximetry (%) 100 08/14/17 11:56 ...Rectal Exam: Yes: Deferred (Not able to perform rectal exam now, patient unable to move to side. States her last BM was this a.m. and has not had bleeding since (currently it is 6:40 pm)) Labs: CBC, BMP 08/14/17 12:42 08/14/17 12:42 INR, PTT INR 1.24 (0.82-1.09) H 08/14/17 12:42 Problem List - Problems (1) Lower GI bleed Assessment/Plan: Patient not in a condition in which colonoscopy would be simple. Her right leg is still quite sore and not very mobile. I would continue to hold her aspirin until it is clear that there is no more bleeding, then resume aspirin but continue with laxatives to keep her from straining at stools. She says that MOM worked for her in the immediate postop period but it has not been continued. Miralax may or may not work as well for her but if MOM is contraindicated by her renal failure then a larger than usual dose of Miralax (say, 17 gm tid instead of once daily) may be helpful. Code(s): K92.2 - GASTROINTESTINAL HEMORRHAGE, UNSPECIFIED
--- NOTE | 2017-08-14 19:10 | EKG ---
Test Reason : Blood Pressure : / mmHG Vent. Rate : 095 BPM Atrial Rate : 187 BPM P-R Int : 000 ms QRS Dur : 100 ms QT Int : 382 ms P-R-T Axes : 058 093 197 degrees QTc Int : 480 ms UNDETERMINED RHYTHM SEPTAL INFARCT , AGE UNDETERMINED ABNORMAL ECG WHEN COMPARED WITH ECG OF 25-JUL-2017 15:35, CURRENT UNDETERMINED RHYTHM PRECLUDES RHYTHM COMPARISON, NEEDS REVIEW SEPTAL INFARCT IS NOW PRESENT Confirmed by MD СВЕТЛАНА, ROBERT ([id number]) on 08/14/2017 7:09:40 PM Referred By: Confirmed By:ROBERT SOTOMAYOR MD
[2017-08-14] MEDS: oxyCODONE HCL 5 MG TABLET PO PRN (19:47)
--- NOTE | 2017-08-14 21:34 | CONSULT ---
Consult Consult Specialty:: Pulm/CCM Reason for Consultation:: Bright red blood per rectum - History of Present Illness Chief Complaint: Hematechezia History of Present Illness: 82 y.o.F, HTN, ESRD on HD, A-fib, CAD s/p cardiac stenting 03/2017 on ASA, s/p Rt hip replacement 07/27/17 and resident of rehab center who was brought in to ED with BRBPR first noted last night and again today after HD. Pt states received heparin with HD session. In ED VS T 97.5, HR 95, BP 127/71, RR 18, O2 sat 100% on room air. Labs notable Hgb 9.8, Plt 192, WBC 6.2. She denied lightheadedness, chest pain, fever, chills , abdominal pain. She reported previous GIB in setting of coumadin, and bruising and bleeding on Plavix. States last colonoscopy was clean. Seen by GI. Because of rt hip surgery pt unable to have colonoscopy at this time. She was transferred to ICU for further management. - History Source History Provided By: Patient, Medical Record - Past Medical History Cardio/Vascular: Yes: AFIB (paroxysmal), CAD, HTN Renal/: Yes: Renal Failure, Hemodialysis Endocrine: Yes: Diabetes Mellitus - Past Surgical History Past Surgical History: Yes: Joint Replacement (rt hip- 2009, ankle fracture , s/ p plates-- 2005) - Alcohol/Substance Use Hx Alcohol Use: No - Smoking History Smoking history: Never smoked Have you smoked in the past 12 months: No Aproximately how many cigarettes per day: 0 Home Medications - Allergies Allergies/Adverse Reactions: Allergies Allergy/AdvReac Type Severity Reaction Status Date / Time erythromycin base Allergy Verified 07/22/17 13:34 Penicillins Allergy Verified 07/22/17 13:34 verapamil [Verapamil] Allergy Verified 07/22/17 13:34 - Home Medications Home Medications: Ambulatory Orders Ascorbic Acid [Vitamin C -] 500 mg PO DAILY 07/22/17 Cholecalciferol (Vitamin D3) [D3-2000] 2,000 unit PO DAILY 07/22/17 Cinacalcet HCl [Sensipar] 30 mg PO ASDIR 07/22/17 Collagenase Clostridium Hist. [Santyl] 90 gm TP DAILY 07/22/17 Furosemide [Lasix] 80 mg PO DAILY 07/22/17 Insulin Aspart Prot/Insuln Asp [Novolog Mix 70-30 Vial] 6 unit SQ AM 07/22/17 Insulin Aspart Prot/Insuln Asp [Novolog Mix 70-30 Vial] 8 unit SQ HS 07/22/17 Labetalol HCl 300 mg PO BID 07/22/17 Magnesium Oxide 400 mg PO DAILY 07/22/17 Mv-Min/Folic/Vit K/Lycop/Coq10 [Daily Multivitamin Capsule] 1 each PO DAILY Pantoprazole Sodium [Protonix] 20 mg PO DAILY 07/22/17 Sevelamer Carbonate [Renvela -] 800 mg PO TID 07/22/17 Vitamin A Palmitate [Vitamin A] 1 tab PO DAILY 07/22/17 Heparin - 5,000 unit SQ BID #60 vial 07/31/17 Levothyroxine [Synthroid -] 225 mcg PO DAILY@0700 #30 tablet 07/31/17 Oxycodone HCl [Roxicodone -] 5 mg PO Q6H PRN #60 tablet MDD 4 07/31/17 Acetaminophen [Tylenol .Regular Strength -] 325 mg PO Q4H PRN tablet 08/01/17 Aspirin Coated [Ecotrin -] 81 mg PO DAILY tablet.ec 08/01/17 Insulin Sliding Scale [Novolog Vial Sliding Scale -] 1 vial SQ BIDAC units 02/10 Mupirocin Ointment [Bactroban Ointment (For Decolonization) -] 1 applic NS BID applic 08/01/17 Polyethylene Glycol 3350 [Miralax 119 gm Btl -] 17 gm PO DAILY PRN bottle 08/01 Family Disease History - Family Disease History Family History: Unremarkable Review of Systems - Review of Systems Constitutional: reports: No Symptoms Eyes: reports: No Symptoms HENT: reports: No Symptoms Neck: reports: No Symptoms Cardiovascular: reports: No Symptoms Respiratory: reports: No Symptoms Gastrointestinal: reports: Rectal Bleeding Genitourinary: reports: No Symptoms Musculoskeletal: reports: No Symptoms Integumentary: reports: Bruising Neurological: reports: No Symptoms Hematology/Lymphatic: reports: No Symptoms Psychiatric: reports: No Symptoms Physical Exam Vital Signs: Vital Signs Temperature 98.7 F 08/14/17 20:05 Pulse Rate 99 H 08/14/17 20:05 Respiratory Rate 20 08/14/17 20:05 Blood Pressure 139/73 08/14/17 20:05 O2 Sat by Pulse Oximetry (%) 100 08/14/17 20:05 Constitutional: Yes: Obese Eyes: Yes: WNL HENT: Yes: Atraumatic, Normocephalic Neck: Yes: Supple, Trachea Midline Cardiovascular: Yes: Pulse Irregular, S1, S2 Respiratory: Yes: Regular, CTA Bilaterally Gastrointestinal: Yes: Normal Bowel Sounds, Soft, Abdomen, Obese, Rectal Bleeding Renal/: Yes: [place] Present Musculoskeletal: Yes: Joint Stiffness Extremities: Yes: Deformity Edema: Yes Edema: LLE: Trace, RLE: 1+ Peripheral Pulses WNL: Yes Integumentary: Yes: Pressure Ulcer (Rt leel stage 4; Sacrum with incontinence excoriation) Wound/Incision: Yes: Clean/Dry, Dressing Dry and Intact (Rt hip surgical incision) Neurological: Yes: Alert, Oriented (BLE weakness) Psychiatric: Yes: WNL, Alert, Oriented Labs: CBC, BMP 08/14/17 12:42 08/14/17 12:42 CBC,CMP WBC 6.2 K/mm3 (4.0-10.0) 08/14/17 12:42 RBC 3.00 M/mm3 (3.60-5.2) L 08/14/17 12:42 Hgb 9.8 GM/dL (10.7-15.3) L 08/14/17 12:42 Hct 30.6 % (32.4-45.2) L 08/14/17 12:42 MCV 102.0 fl (80-96) H 08/14/17 12:42 MCH 32.8 pg (25.7-33.7) 08/14/17 12:42 MCHC 32.1 g/dl (32.0-36.0) 08/14/17 12:42 RDW 21.4 % (11.6-15.6) H 08/14/17 12:42 Plt Count 192 K/MM3 (134-434) 08/14/17 12:42 MPV 7.4 fl (7.5-11.1) L D 08/14/17 12:42 Neutrophils % 76.8 % (42.8-82.8) 08/14/17 12:42 Lymphocytes % 10.0 % (8-40) D 08/14/17 12:42 Monocytes % 8.9 % (3.8-10.2) 08/14/17 12:42 Eosinophils % 3.7 % (0-4.5) 08/14/17 12:42 Basophils % 0.6 % (0-2.0) 08/14/17 12:42 Sodium 138 mmol/L (136-145) 08/14/17 12:42 Potassium 3.4 mmol/L (3.5-5.1) L D 08/14/17 12:42 Chloride 101 mmol/L (98-107) 08/14/17 12:42 Carbon Dioxide 28 mmol/L (21-32) 08/14/17 12:42 Anion Gap 9 (8-16) 08/14/17 12:42 BUN 22 mg/dL (7-18) H D 08/14/17 12:42 Creatinine 3.0 mg/dL (0.55-1.02) H D 08/14/17 12:42 Creat Clearance w eGFR 15.01 (>60) 08/14/17 12:42 POC Glucometer 65.60899 UNITS (80-120) 08/14/17 20:23 Random Glucose 57 mg/dL (74-106) L 08/14/17 12:42 Calcium 7.8 mg/dL (8.5-10.1) L 08/14/17 12:42 Total Bilirubin 0.9 mg/dL (0.2-1.0) D 08/14/17 12:42 AST 19 U/L (15-37) D 08/14/17 12:42 ALT 9 U/L (12-78) L D 08/14/17 12:42 Alkaline Phosphatase 209 U/L (45-117) H 08/14/17 12:42 Total Protein 6.0 g/dl (6.4-8.2) L 08/14/17 12:42 Albumin 2.1 g/dl (3.4-5.0) L 08/14/17 12:42 INR, PTT INR 1.24 (0.82-1.09) H 08/14/17 12:42 Current Medications Acetaminophen (Tylenol -) 650 mg PO Q6H PRN PRN Reason: FEVER OR PAIN Chlorhexidine Gluconate (Hibiclens For Decolonization -) 1 applic TP HS [facility] Cholecalciferol (Vitamin D3 -) 2,000 unit PO DAILY [facility] Cinacalcet (Sensipar -) 30 mg PO ASDIR [facility] Collagenase (Santyl -) 1 applic TP DAILY [facility] Furosemide (Lasix -) 80 mg PO DAILY [facility] Labetalol HCl (Normodyne -) 300 mg PO BID [facility] Levothyroxine Sodium (Synthroid -) 225 mcg PO DAILY@0700 [facility] Multivitamins/Minerals/Vitamin C (Tab-A-Vit -) 1 tab PO DAILY [facility] Mupirocin (Bactroban Ointment (For Decolonization) -) 1 applic NS BID [facility] Stop: 08/19/17 21:59 Oxycodone HCl (Roxicodone -) 5 mg PO Q6H PRN PRN Reason: PAIN Last Admin: 08/14/17 19:47 Dose: 5 mg Pantoprazole Sodium (Protonix -) 20 mg PO DAILY [facility] Polyethylene Glycol (Miralax (For Daily Use) -) 17 gm PO BID [facility] Sevelamer Carbonate (Renvela -) 800 mg PO TIDCM [facility] Vital Signs Period Temp Pulse Resp BP Sys/[place] Pulse Ox Last 24 Hr 97.5 F-98.7 F 92-99 18-20 127-139/71-84 100-100 Imaging - Results Chest X-ray: Report Reviewed Problem List - Problems (1) ESRD (end stage renal disease) on dialysis Code(s): N18.6 - END STAGE RENAL DISEASE; Z99.2 - DEPENDENCE ON RENAL DIALYSIS (2) Lower GI bleed Code(s): K92.2 - GASTROINTESTINAL HEMORRHAGE, UNSPECIFIED (3) Atrial fibrillation Code(s): I48.91 - UNSPECIFIED ATRIAL FIBRILLATION (4) CAD (coronary artery disease) Code(s): I25.10 - ATHSCL HEART DISEASE OF [place] CORONARY ARTERY W/O ANG PCTRS (5) Hip pain, right Code(s): M25.551 - PAIN IN RIGHT HIP (6) Hypertension Code(s): I10 - ESSENTIAL (PRIMARY) HYPERTENSION (7) Hypothyroidism Code(s): E03.9 - HYPOTHYROIDISM, UNSPECIFIED (8) Pressure ulcer of foot Code(s): L89.899 - PRESSURE ULCER OF OTHER SITE, UNSPECIFIED STAGE Assessment/Plan 82 y.o.F, HTN, ESRD on HD, A-fib, CAD s/p cardiac stenting 03/2017 on ASA, s/p Rt hip replacement 07/27/17 brought in with Gi bleed/ hematechezia in setting of anticoagulation/heparin use during HD. Plan: -GI consulted: colonoscopy when able -Maintain large bore IV access -Serial CBC q4 -Transfuse for Hgb<8 re CAD -Consider DDAVP if bleeding worsens -Monitor coags -PPI -Hold antihypertensives -Hold ASA while bleeding -Proph: SCD's NIKITA Snell CC time 35mins
[2017-08-14] MEDS ORDERED: MUPIROCIN 2% TOPICAL OINTMENT FOR DECOLONIZATION NS SCH (22:00)
[2017-08-14 22:09] LABS: BASO % 1.1 % (0-2.0); HEMATOCRIT 25.8 % (32.4-45.2); HEMOGLOBIN 8.3 GM/dL (10.7-15.3); MCH 32.9 pg (25.7-33.7); MCHC 32.1 g/dl (32.0-36.0); MEAN CELL VOLUME 102.3 fl (80-96); MEAN PLT VOLUME 7.7 fl (7.5-11.1); MONO % 8.8 % (3.8-10.2); NEUT % 73.1 % (42.8-82.8); PLATELET COUNT 211 K/MM3 (134-434); RBC 2.52 M/mm3 (3.60-5.2); RDW 21.2 % (11.6-15.6); WHITE BLOOD COUNT 5.8 K/mm3 (4.0-10.0)
[2017-08-14 22:25] LABS: ADD RBC MORPHOLOGY YES
[2017-08-14] MEDS: MUPIROCIN 2% TOPICAL OINTMENT FOR DECOLONIZATION NS SCH (23:21)
[2017-08-14] MEDS: CHLORHEXIDINE GLUCONATE 4% CLEANSER FOR DECOLONIZATION TP SCH (23:22)
[2017-08-14] MEDS: POLYETHYLENE GLYCOL 3350 119 GM BTL PO SCH (23:22)
[2017-08-14] MEDS: LABETALOL HCL 100 MG TABLET (FP) PO SCH (23:23)
[2017-08-14 23:26] LABS: ANISOCYTOSIS 2+; MACROCYTOSIS 1+; OVALOCYTE 1+; PLATELET ESTIMATE ADEQUATE
[2017-08-15 01:44] VITALS: BMI 31.9
[2017-08-15] MEDS: oxyCODONE HCL 5 MG TABLET PO PRN ×3 (01:50→23:00)
[2017-08-15] MEDS ORDERED: LEVOTHYROXINE NA 25 MCG TABLET (FP) ONE (06:18)
[2017-08-15] MEDS ORDERED: LEVOTHYROXINE NA 100 MCG TABLET (FP) ONE (06:18)
[2017-08-15] MEDS: LEVOTHYROXINE 25 MCG, LEVOTHYROXINE 200 MCG PO SCH (06:19)
[2017-08-15 06:38] LABS: BASO % 1.3 % (0-2.0); EOS % 5.6 % (0-4.5); HEMATOCRIT 24.9 % (32.4-45.2); HEMOGLOBIN 8.1 GM/dL (10.7-15.3); LYMPH % 16.4 % (8-40); MCH 33.4 pg (25.7-33.7); MCHC 32.5 g/dl (32.0-36.0); MEAN PLT VOLUME 7.6 fl (7.5-11.1); MONO % 7.7 % (3.8-10.2); PLATELET COUNT 221 K/MM3 (134-434); RBC 2.42 M/mm3 (3.60-5.2); RDW 21.4 % (11.6-15.6); WHITE BLOOD COUNT 5.3 K/mm3 (4.0-10.0)
[2017-08-15] MEDS ORDERED: HEMOQUE TEST 1 EACH EACH ONE ×2 (06:42→11:29)
[2017-08-15] MEDS ORDERED: LEVOTHYROXINE NA 25 MCG TABLET (FP) PO SCH (07:00)
[2017-08-15 07:01] LABS: ALBUMIN 1.9 g/dl (3.4-5.0); ANION GAP 7 (8-16); BLOOD UREA NITROGEN 28 mg/dL (7-18); CALCIUM 7.4 mg/dL (8.5-10.1); CHLORIDE 101 mmol/L (98-107); CO2 28 mmol/L (21-32); CREATININE 3.8 mg/dL (0.55-1.02); GLUCOSE,RANDOM 59 mg/dL (74-106); POTASSIUM 3.8 mmol/L (3.5-5.1); SGOT/AST 16 U/L (15-37); SGPT/ALT 8 U/L (12-78); SODIUM 136 mmol/L (136-145)
[2017-08-15 07:03] LABS: ALK PHOS 192 U/L (45-117); BILIRUBIN,TOTAL 0.9 mg/dL (0.2-1.0); TOT PROT 5.3 g/dl (6.4-8.2)
[2017-08-15] MEDS: FUROSEMIDE 40 MG TABLET (FP) PO SCH (09:25)
[2017-08-15] MEDS: MULTIVITAMINS (DAILY MVI) TABLET (FP) PO SCH (09:26)
[2017-08-15] MEDS: CHOLECALCIFEROL (VITAMIN D3) 1,000 UNIT TABLET (FP) PO SCH (09:26)
[2017-08-15] MEDS: PANTOPRAZOLE 20 MG TABLET (FP) PO SCH (09:28)
[2017-08-15] MEDS: LABETALOL HCL 100 MG TABLET (FP) PO SCH ×2 (09:29→23:00)
[2017-08-15] MEDS: SEVELAMER CARBONATE 800 MG TAB (FP) PO SCH ×3 (09:29→17:59)
[2017-08-15] MEDS: POLYETHYLENE GLYCOL 3350 119 GM BTL PO SCH ×2 (09:30→22:00)
[2017-08-15] MEDS: MUPIROCIN 2% TOPICAL OINTMENT FOR DECOLONIZATION NS SCH ×2 (09:33→22:00)
--- NOTE | 2017-08-15 09:44 | PN ---
Progress Note (short form) - Note Progress Note: patient seen and examined today in the ICU Comfortable small amount of bleeding--Last night Overall feels okay Pain in right hip better Denies chest pain Vital Signs Temp 98.2 F 08/15/17 02:00 Pulse 93 H 08/15/17 08:00 Resp 19 08/15/17 08:00 BP 128/73 08/15/17 08:43 Pulse Ox 100 08/15/17 08:46 Intake & Output 08/14/17 08/14/17 08/15/17 11:59 23:59 11:59 Intake Total 717 Output Total 0 Balance 717 0 Weight 190 lb 198 lb Intake: IV 200 ns 200 IVPB 100 Oral 177 Platelets 240 Output: Urine 0 Void 0 Other: Voiding Method Diaper Diaper Incontinent Height 5 ft 7 in 5 ft 6 in Body Mass Index (BMI) 29.7 31.9 Weight Measurement Method Built in [facility] Active Medications Acetaminophen (Tylenol -) 650 mg PO Q6H PRN PRN Reason: FEVER OR PAIN Chlorhexidine Gluconate (Hibiclens For Decolonization -) 1 applic TP HS [facility] Last Admin: 08/14/17 23:22 Dose: 1 applic Cholecalciferol (Vitamin D3 -) 2,000 unit PO DAILY [facility] Last Admin: 08/15/17 09:26 Dose: 2,000 unit Cinacalcet (Sensipar -) 30 mg PO MoWeFr@1000 [facility] Last Admin: 08/15/17 09:28 Dose: 30 mg Collagenase (Santyl -) 1 applic TP DAILY [facility] Furosemide (Lasix -) 80 mg PO DAILY [facility] Last Admin: 08/15/17 09:25 Dose: 80 mg Levofloxacin (Levaquin 250 Mg Premixed Ivpb -) 250 mg in 50 mls @ 50 mls/hr IVPB Q2D@1000 [facility] Last Admin: 08/14/17 23:23 Dose: 50 mls/hr Labetalol HCl (Normodyne -) 300 mg PO BID [facility] Last Admin: 08/15/17 09:29 Dose: Not Given Levothyroxine Sodium 25 mcg/ (Levothyroxine Sodium 200 mcg) 225 mcg PO DAILY@ 0700 [facility] Last Admin: 08/15/17 06:19 Dose: 225 mcg Multivitamins/Minerals/Vitamin C (Tab-A-Vit -) 1 tab PO DAILY [facility] Last Admin: 12/20/17 09:26 Dose: 1 tab Mupirocin (Bactroban Ointment (For Decolonization) -) 1 applic NS BID [facility] Stop: 08/19/17 21:59 Last Admin: 08/15/17 09:33 Dose: 1 applic Oxycodone HCl (Roxicodone -) 5 mg PO Q6H PRN PRN Reason: PAIN Last Admin: 08/15/17 01:50 Dose: 5 mg Pantoprazole Sodium (Protonix -) 20 mg PO DAILY [facility] Last Admin: 08/15/17 09:28 Dose: 20 mg Polyethylene Glycol (Miralax (For Daily Use) -) 17 gm PO BID [facility] Last Admin: 08/15/17 09:30 Dose: Not Given Sevelamer Carbonate (Renvela -) 800 mg PO TIDCM [facility] Last Admin: 08/15/17 09:29 Dose: Not Given CBC, BMP 08/15/17 06:20 08/15/17 06:20 Physical Examination Constitutional: Yes: Alert and awake. No distress Eyes: Yes: Conjunctiva Clear Neck: Yes: Supple/ no JVD Cardiovascular: Yes: Pulse Irregular Respiratory: Yes: CTA Bilaterally Gastrointestinal: Yes: Soft/ nontender Edema: No Wound/Incision: Yes: Other (right heel) right hip--- [place] in place--- redness around--- surgical site--- slightly tender Neurological: Yes: Alert Assessment/Plan admitted to icu. stable GI consultation noted Antibiotics--for pneumonia Repeat x-ray in a few days Antibiotic should help--right hip erythema transfuse prn. pain control dialysis as per renal monitor blood sugar will follow cc time 20 min. Problem List - Problems (1) Pneumonia Code(s): J18.9 - PNEUMONIA, UNSPECIFIED ORGANISM (2) ESRD (end stage renal disease) on dialysis Code(s): N18.6 - END STAGE RENAL DISEASE; Z99.2 - DEPENDENCE ON RENAL DIALYSIS (3) Lower GI bleed Code(s): K92.2 - GASTROINTESTINAL HEMORRHAGE, UNSPECIFIED (4) Aortic stenosis Code(s): I35.0 - NONRHEUMATIC AORTIC (VALVE) STENOSIS (5) Atrial fibrillation Code(s): I48.91 - UNSPECIFIED ATRIAL FIBRILLATION (6) CAD (coronary artery disease) Code(s): I25.10 - ATHSCL HEART DISEASE OF [place] CORONARY ARTERY W/O ANG PCTRS (7) Diabetes Code(s): E11.9 - TYPE 2 DIABETES MELLITUS WITHOUT COMPLICATIONS (8) Hip pain, right Code(s): M25.551 - PAIN IN RIGHT HIP (9) S/P hip replacement Code(s): Z96.649 - PRESENCE OF UNSPECIFIED ARTIFICIAL HIP JOINT
[2017-08-15] MEDS ORDERED: CINACALCET HCL 30 MG TAB (FP) PO SCH (10:00)
--- NOTE | 2017-08-15 11:06 | PN ---
Physical Exam: SUBJECTIVE: Patient seen and examined No acute events overnight. Patient denies any bloody stools overnight. Patient still has right hip and leg pain. Patient denies fever, chills, chest pain, SOB , N/V/D/C. OBJECTIVE: Vital Signs Period Temp Pulse Resp BP Sys/Willson Pulse Ox Last 24 Hr 97.4 F-98.7 F 92-99 13-22 124-143/67-91 100-100 GENERAL: The patient is awake, alert, and fully oriented, in no acute distress. HEAD: Normal with no signs of trauma. EYES:Extraocular movements intact, sclera anicteric, conjunctiva clear. No ptosis. NECK: Trachea midline, full range of motion, supple. LUNGS: Breath sounds equal, decreased at the bases, clear to auscultation bilaterally, no wheezes, no crackles, no accessory muscle use. HEART: Regular rate and rhythm, S1, S2, +Systolic ejection murmur ABDOMEN: Soft, nontender, nondistended, normoactive bowel sounds, no guarding, no rebound, no hepatosplenomegaly, no masses. EXTREMITIES: 2+ pulses, warm, well-perfused, +edema. +Incision site with well healing skin on right hip PSYCH: Normal mood, normal affect. SKIN: Warm, dry, normal turgor, no rashes or lesions noted Laboratory Results - last 24 hr 08/14/17 08/14/17 08/14/17 12:32 12:42 12:42 WBC 6.2 RBC 3.00 L Hgb 9.8 L Hct 30.6 L MCV 102.0 H MCH 32.8 MCHC 32.1 RDW 21.4 H Plt Count 192 MPV 7.4 L D Neutrophils % 76.8 Lymphocytes % 10.0 D Monocytes % 8.9 Eosinophils % 3.7 Basophils % 0.6 Platelet Estimate Platelet Comment Polychromasia Poikilocytosis Anisocytosis Macrocytosis Ovalocytes PT with INR 14.00 H INR 1.24 H Sodium Potassium Chloride Carbon Dioxide Anion Gap BUN Creatinine Creat Clearance w eGFR POC Glucometer Random Glucose Hemoglobin A1c % Calcium Total Bilirubin AST ALT Alkaline Phosphatase Total Protein Albumin Stool Occult Blood Positive Blood Type Antibody Screen Crossmatch 08/14/17 08/14/17 08/14/17 12:42 12:42 20:23 WBC RBC Hgb Hct MCV MCH MCHC RDW Plt Count MPV Neutrophils % Lymphocytes % Monocytes % Eosinophils % Basophils % Platelet Estimate Platelet Comment Polychromasia Poikilocytosis Anisocytosis Macrocytosis Ovalocytes PT with INR INR Sodium 138 Potassium 3.4 L D Chloride 101 Carbon Dioxide 28 Anion Gap 9 BUN 22 H D Creatinine 3.0 H D Creat Clearance w eGFR 15.01 POC Glucometer 65.32435 Random Glucose 57 L Hemoglobin A1c % Calcium 7.8 L Total Bilirubin 0.9 D AST 19 D ALT 9 L D Alkaline Phosphatase 209 H Total Protein 6.0 L Albumin 2.1 L Stool Occult Blood Blood Type O POSITIVE Antibody Screen Negative Crossmatch See Detail 08/14/17 08/15/17 08/15/17 22:00 06:20 06:20 WBC 5.8 5.3 RBC 2.52 L 2.42 L Hgb 8.3 L D 8.1 L Hct 25.8 L D 24.9 L MCV 102.3 H 103.0 H MCH 32.9 33.4 MCHC 32.1 32.5 RDW 21.2 H 21.4 H Plt Count 211 221 MPV 7.7 7.6 Neutrophils % 73.1 69.0 Lymphocytes % 13.0 D 16.4 D Monocytes % 8.8 7.7 Eosinophils % 4.0 5.6 H Basophils % 1.1 1.3 Platelet Estimate Adequate Platelet Comment Polychromasia 1+ Poikilocytosis 1+ Anisocytosis 2+ Macrocytosis 1+ Ovalocytes 1+ PT with INR INR Sodium 136 Potassium 3.8 Chloride 101 Carbon Dioxide 28 Anion Gap 7 L BUN 28 H D Creatinine 3.8 H D Creat Clearance w eGFR 11.43 POC Glucometer Random Glucose 59 L Hemoglobin A1c % Calcium 7.4 L Total Bilirubin 0.9 AST 16 ALT 8 L Alkaline Phosphatase 192 H Total Protein 5.3 L Albumin 1.9 L Stool Occult Blood Blood Type Antibody Screen Crossmatch 08/15/17 06:20 WBC RBC Hgb Hct MCV MCH MCHC RDW Plt Count MPV Neutrophils % Lymphocytes % Monocytes % Eosinophils % Basophils % Platelet Estimate Platelet Comment Polychromasia Poikilocytosis Anisocytosis Macrocytosis Ovalocytes PT with INR INR Sodium Potassium Chloride Carbon Dioxide Anion Gap BUN Creatinine Creat Clearance w eGFR POC Glucometer Random Glucose Hemoglobin A1c % 5.2 D Calcium Total Bilirubin AST ALT Alkaline Phosphatase Total Protein Albumin Stool Occult Blood Blood Type Antibody Screen Crossmatch Active Medications Generic Name Dose Route Start Last Admin Trade Name Kian PRN Reason Stop Dose Admin Acetaminophen 650 mg 08/14/17 18:56 Tylenol - PO Q6H PRN FEVER OR PAIN Chlorhexidine Gluconate 1 applic 08/14/17 22:00 08/14/17 23:22 Hibiclens For Decolonization - TP 1 applic HS ERNESTINE Administration Cholecalciferol 2,000 unit 08/15/17 10:00 08/15/17 09:26 Vitamin D3 - PO 2,000 unit DAILY ERNESTINE Administration Cinacalcet 30 mg 08/15/17 10:00 08/15/17 09:28 Sensipar - PO 30 mg MoWeFr@1000 ERNESTINE Administration Collagenase 1 applic 08/15/17 10:00 Santyl - TP DAILY ERNESTINE Furosemide 80 mg 08/15/17 10:00 08/15/17 09:25 Lasix - PO 80 mg DAILY ERNESTINE Administration Levofloxacin 250 mg in 50 mls @ 50 mls/hr 08/14/17 22:30 08/14/17 23:23 Levaquin 250 Mg Premixed Ivpb - IVPB 50 mls/hr Q2D@1000 ERNESTINE Administration Labetalol HCl 300 mg 08/14/17 22:00 08/15/17 09:29 Normodyne - PO Not Given BID ERNESTINE Levothyroxine Sodium 25 mcg/ 225 mcg 08/15/17 07:00 08/15/17 06:19 Levothyroxine Sodium 200 mcg PO 225 mcg DAILY@0700 ERNESTINE Administration Multivitamins/Minerals/Vitamin C 1 tab 08/15/17 10:00 08/15/17 09:26 Tab-A-Vit - PO 1 tab DAILY ERNESTINE Administration Mupirocin 1 applic 08/14/17 22:00 08/15/17 09:33 Bactroban Ointment (For Decolonization) - NS 08/19/17 21:59 1 applic BID ERNESTINE Administration Oxycodone HCl 5 mg 08/14/17 19:01 08/15/17 01:50 Roxicodone - PO 5 mg Q6H PRN Administration PAIN Pantoprazole Sodium 20 mg 08/15/17 10:00 08/15/17 09:28 Protonix - PO 20 mg DAILY ERNESTINE Administration Polyethylene Glycol 17 gm 08/14/17 22:00 08/15/17 09:30 Miralax (For Daily Use) - PO Not Given BID ERNESTINE Sevelamer Carbonate 800 mg 08/15/17 08:00 08/15/17 09:29 Renvela - PO Not Given TIDCM [facility] ASSESSMENT/PLAN: 82 y.o. F with pmh of HTN, HLD, DM, CAD s/p stent, LV CHF, MR, , ESRD on HD, and recent right hip surgery presenting with BRBPR GI GI bleed, likely lower GI -monitor H/H, transfuse with prbc if hgb drops below 8 -PO protonix -F/u with GI, Dr. Caal -Hold any AC -Pain control with oxycodone and acetaminophen -miralax 17 g po bid Heme Anemia 2/2 to GI Bleed -Hold AC -Monitor H/H, transfuse below 8 Nephro ESRD on HD -Dr. Yeboah on board -TTS -Due for HD tomorrow -Lasix 80 mg po daily CV HTN LV CHF MR -continue labetolol 300 mg po bid -continue lasix 80 mg po daily Endo DM Hypothyroidism -Continue with synthroid 225 mcg po daily FEN/GI -No IVF at this time -wnl -Sodium controlled diet, breakfast held pending GI recs PPx -SCD's, Teds for DVT ppx -PO protonix for GI ppx Dispo: Transfer to med surg Visit type - Emergency Visit Emergency Visit: Yes ED Registration Date: 08/14/17 Care time: The patient presented to the Emergency Department on the above date and was hospitalized for further evaluation of their emergent condition. - New Patient This patient is new to me today: Yes Date on this admission: 08/15/17 - Critical Care Critical Care patient: Yes Total Critical Care Time (in minutes): 35 Critical Care Statement: The care of this patient involved high complexity decision making to prevent further life threatening deterioration of the patient 's condition and/or to evaluate & treat vital organ system(s) failure or risk of failure.
--- NOTE | 2017-08-15 11:16 | PN ---
Teaching Attending Note Name of Resident: Vinicius Ponce ATTENDING PHYSICIAN STATEMENT I saw and evaluated the patient. I reviewed the resident's note and discussed the case with the resident. I agree with the resident's findings and plan as documented. SUBJECTIVE: Pt seen and examined in the ICU. Still some intermittent rectal bleeding. No shortness of breath or chest pain. No nausea, vomiting or abdominal pain. c/o right hip pain. OBJECTIVE: Last Vital Signs Temp Pulse Resp BP Pulse Ox 97.4 F L 93 H 19 127/69 100 08/15/17 10:00 08/15/17 10:00 08/15/17 10:00 08/15/17 10:00 08/15/17 08:46 Intake & Output 08/12/17 08/13/17 08/14/17 08/15/17 23:59 23:59 23:59 23:59 Intake Total 717 Output Total 0 Balance 717 0 Weight 190 lb 198 lb Gen: NAD at rest Heart: RRR, +systolic murmur Lung: decreased breath sounds at the bases Abd: soft, nontender Ext: + edema CBC, BMP 08/15/17 06:20 08/15/17 06:20 Active Medications Acetaminophen (Tylenol -) 650 mg PO Q6H PRN PRN Reason: FEVER OR PAIN Chlorhexidine Gluconate (Hibiclens For Decolonization -) 1 applic TP HS [facility] Last Admin: 08/14/17 23:22 Dose: 1 applic Cholecalciferol (Vitamin D3 -) 2,000 unit PO DAILY [facility] Last Admin: 08/15/17 09:26 Dose: 2,000 unit Cinacalcet (Sensipar -) 30 mg PO MoWeFr@1000 [facility] Last Admin: 08/15/17 09:28 Dose: 30 mg Collagenase (Santyl -) 1 applic TP DAILY ERNESTINE Furosemide (Lasix -) 80 mg PO DAILY [facility] Last Admin: 08/15/17 09:25 Dose: 80 mg Levofloxacin (Levaquin 250 Mg Premixed Ivpb -) 250 mg in 50 mls @ 50 mls/hr IVPB Q2D@1000 [facility] Last Admin: 08/14/17 23:23 Dose: 50 mls/hr Labetalol HCl (Normodyne -) 300 mg PO BID [facility] Last Admin: 08/15/17 09:29 Dose: Not Given Levothyroxine Sodium 25 mcg/ (Levothyroxine Sodium 200 mcg) 225 mcg PO DAILY@ 0700 [facility] Last Admin: 08/15/17 06:19 Dose: 225 mcg Multivitamins/Minerals/Vitamin C (Tab-A-Vit -) 1 tab PO DAILY [facility] Last Admin: 08/15/17 09:26 Dose: 1 tab Mupirocin (Bactroban Ointment (For Decolonization) -) 1 applic NS BID [facility] Stop: 08/19/17 21:59 Last Admin: 08/15/17 09:33 Dose: 1 applic Oxycodone HCl (Roxicodone -) 5 mg PO Q6H PRN PRN Reason: PAIN Last Admin: 08/15/17 01:50 Dose: 5 mg Pantoprazole Sodium (Protonix -) 20 mg PO DAILY [facility] Last Admin: 08/15/17 09:28 Dose: 20 mg Polyethylene Glycol (Miralax (For Daily Use) -) 17 gm PO BID [facility] Last Admin: 08/15/17 09:30 Dose: Not Given Sevelamer Carbonate (Renvela -) 800 mg PO TIDCM [facility] Last Admin: 08/15/17 09:29 Dose: Not Given ASSESSMENT AND PLAN: GI Bleed likely Lower Anemia ESRD on HD LV Systolic Dysfunction Mitral Regurgitation Aortic Stenosis HTN DM - monitor H/H - transfuse as needed - ddAVP if continues to bleed and H/H dropping - protonix - GI f/u - HD per renal - hold all anticoagulation, antiplatelets - PO as tolerated - ensure large bore peripheral access - pain control - can monitor on floor
[2017-08-15] MEDS: ACETAMINOPHEN 325 MG TABLET (FP) PO PRN ×2 (11:55→22:59)
--- NOTE | 2017-08-15 13:40 | CON.NEP ---
Consult Consult Specialty:: Nephrology Referred by:: Dr. Chilel Reason for Consultation:: ESRD on HD - History of Present Illness Chief Complaint: Rectal bleeding History of Present Illness: This is a 82 year old woman with PMhx of ESRD no HD x 7 years, hypertension, DM , s/p recent hip replacement presented from HD with bright red blood per rectum. Pt is in rehab s/p hip replacement and noted red blood yesterday before and after dialysis. Pt denies any CP, SOB, abd pain, N/V/D. Pt denies any history of bleeding. Pt s/p dialysis yesterday. - History Source History Provided By: Patient Limitations to Obtaining History: No Limitations - Past Medical History Cardio/Vascular: Yes: AFIB (paroxysmal), CAD, HTN Renal/: Yes: Renal Failure, Hemodialysis Endocrine: Yes: Diabetes Mellitus - Past Surgical History Past Surgical History: Yes: Joint Replacement (rt hip- 2009, ankle fracture , s/ p plates-- 2005) - Alcohol/Substance Use Hx Alcohol Use: No - Smoking History Smoking history: Never smoked Have you smoked in the past 12 months: No Aproximately how many cigarettes per day: 0 Home Medications - Allergies Allergies/Adverse Reactions: Allergies Allergy/AdvReac Type Severity Reaction Status Date / Time erythromycin base Allergy Verified 07/22/17 13:34 Penicillins Allergy Verified 07/22/17 13:34 verapamil [Verapamil] Allergy Verified 07/22/17 13:34 - Home Medications Home Medications: Ambulatory Orders Ascorbic Acid [Vitamin C -] 500 mg PO DAILY 07/22/17 Cholecalciferol (Vitamin D3) [D3-2000] 2,000 unit PO DAILY 07/22/17 Cinacalcet HCl [Sensipar] 30 mg PO ASDIR 07/22/17 Collagenase Clostridium Hist. [Santyl] 90 gm TP DAILY 07/22/17 Furosemide [Lasix] 80 mg PO DAILY 07/22/17 Insulin Aspart Prot/Insuln Asp [Novolog Mix 70-30 Vial] 6 unit SQ AM 07/22/17 Insulin Aspart Prot/Insuln Asp [Novolog Mix 70-30 Vial] 8 unit SQ HS 07/22/17 Labetalol HCl 300 mg PO BID 07/22/17 Magnesium Oxide 400 mg PO DAILY 07/22/17 Mv-Min/Folic/Vit K/Lycop/Coq10 [Daily Multivitamin Capsule] 1 each PO DAILY Pantoprazole Sodium [Protonix] 20 mg PO DAILY 07/22/17 Sevelamer Carbonate [Renvela -] 800 mg PO TID 07/22/17 Vitamin A Palmitate [Vitamin A] 1 tab PO DAILY 07/22/17 Heparin - 5,000 unit SQ BID #60 vial 07/31/17 Levothyroxine [Synthroid -] 225 mcg PO DAILY@0700 #30 tablet 07/31/17 Oxycodone HCl [Roxicodone -] 5 mg PO Q6H PRN #60 tablet MDD 4 07/31/17 Acetaminophen [Tylenol .Regular Strength -] 325 mg PO Q4H PRN tablet 08/01/17 Aspirin Coated [Ecotrin -] 81 mg PO DAILY tablet.ec 08/01/17 Insulin Sliding Scale [Novolog Vial Sliding Scale -] 1 vial SQ BIDAC units 02/10 Mupirocin Ointment [Bactroban Ointment (For Decolonization) -] 1 applic NS BID applic 08/01/17 Polyethylene Glycol 3350 [Miralax 119 gm Btl -] 17 gm PO DAILY PRN bottle 08/01 Family Disease History - Family Disease History Family History: Unremarkable Review of Systems - Review of Systems Constitutional: reports: No Symptoms Eyes: reports: No Symptoms HENT: reports: No Symptoms Neck: reports: No Symptoms Cardiovascular: reports: No Symptoms Respiratory: reports: No Symptoms Gastrointestinal: reports: No Symptoms, Diarrhea, Melena. denies: Abdominal Pain, Vomiting Genitourinary: reports: No Symptoms Musculoskeletal: reports: No Symptoms Neurological: reports: No Symptoms Nephrology Consult - Height Height: 5 ft 6 in - Weight Weight: 89.811 kg - BMI Body Mass Index (BMI): 31.9 - Lab Results CBC,BMP: CBC, BMP 08/15/17 06:20 08/15/17 06:20 Anion Gap: Anion Gap Anion Gap 7 (8-16) L 08/15/17 06:20 - Imaging Chest X-ray: Report Reviewed - Physical Examination Vital Signs: Vital Signs Temperature 97.4 F L 08/15/17 10:00 Pulse Rate 97 H 08/15/17 12:00 Respiratory Rate 16 08/15/17 12:00 Blood Pressure 133/68 08/15/17 12:00 O2 Sat by Pulse Oximetry (%) 100 08/15/17 08:46 Constitutional: Yes: No Distress HENT: Yes: Atraumatic Neck: Yes: Supple Cardiovascular: Yes: Regular Rate and Rhythm. No: Murmur, Rub Respiratory: Yes: Regular. No: Rales, Rhonchi, SOB Gastrointestinal: Yes: Normal Bowel Sounds, Soft. No: Tenderness Extremities: Yes: Other (stable on right hip, reddness around wound but in rectangular shape) Edema: No Wound/Incision: Yes: Sutures Intact, Reddened. No: Bleeding Neurological: Yes: Alert, Oriented Assessment/Plan 82 year old woman with PMhx of ESRD no HD x 7 years, hypertension, DM, s/p recent hip replacement presented from HD with bright red blood per rectum. #Acute GI Bleed with acute on chronic anemia Hgb downtrending and pt continues to have BRBPR with clots check CBC now transfuse for Hgb less then 8 GI following PPI on board #ESRD on HD s/p dialysis yesterday no acute indication for treatment today no heparin with dialysis #s/p recent hip replacement supportive care pain control #Hypertension BP stable off meds #Infiltrate on CXR unlikely PNA given no cough, leukocytosis consider repeat CXR on Levaquin per primary Thank you Kenny Yeboah DO
[2017-08-15 15:13] LABS: BASO % 1.1 % (0-2.0); HEMATOCRIT 23.1 % (32.4-45.2); HEMOGLOBIN 7.5 GM/dL (10.7-15.3); LYMPH % 13.2 % (8-40); MCH 33.2 pg (25.7-33.7); MCHC 32.5 g/dl (32.0-36.0); MEAN CELL VOLUME 102.2 fl (80-96); MEAN PLT VOLUME 7.6 fl (7.5-11.1); NEUT % 73.7 % (42.8-82.8); PLATELET COUNT 195 K/MM3 (134-434); RBC 2.26 M/mm3 (3.60-5.2); RDW 22.1 % (11.6-15.6); WHITE BLOOD COUNT 6.1 K/mm3 (4.0-10.0)
--- NOTE | 2017-08-15 16:12 | PN ---
GI Progress Note Subjective: GI: Dr. Lua for Dr. Caal Had smaller dark BM this afternoon at 1pm: clot passed as well as described by nurse No abdominal pain Denies h/o alcohol use, liver disease - Objective Vital Signs: Vital Signs Temperature 97.4 F L 08/15/17 14:00 Pulse Rate 93 H 08/15/17 14:00 Respiratory Rate 27 H 08/15/17 14:00 Blood Pressure 107/57 08/15/17 14:00 O2 Sat by Pulse Oximetry (%) 100 08/15/17 08:46 Constitutional: Calm Eyes: No: Sclera Icterus Cardiovascular: Yes: Pulse Irregular (regular rate) Respiratory: Yes: Diminished (at bases but with poor inspiratory effort) Gastrointestinal Inspection: No: Distention ...Auscultate: Yes: Normoactive Bowel Sounds ...Palpate: No: Hepatomegaly, Splenomegaly, Tenderness ...Percussion: No: Tympanitic ...Rectal Exam: Yes: Other (Limited given that positioning Ms. Yoon was difficult given recent right hip surgery" formed stool in rectal vault mixed with maroon blood) Edema: Yes Edema: LLE: 2+ (up to thigh), RLE: 2+ (up to thigh) Neurological: Yes: Alert, Oriented Labs: CBC, BMP 08/15/17 14:30 08/15/17 06:20 INR, PTT INR 1.24 (0.82-1.09) H 08/14/17 12:42 Problem List - Problems (1) Lower GI bleed Assessment/Plan: Remains hemodynamically stable with 1 episode of bleeding today and drop in h/h Being transfused 1 unit PRBC Clear liquids If profuse bleeding / change in hemodynamics would consider heme eval and platelet transfusion as well given qualitative platelet dysfunction along with imaging such as CTA to localize source Ms. yoon would prefer not to have a colonoscopy at this time however if bleeding persists I did explain that it would still need to be considered in order to assess further Continue ICU monitoring Spoke w/ Dr. Yeboah of renal. No heparin to be used during HD tomorrow Code(s): K92.2 - GASTROINTESTINAL HEMORRHAGE, UNSPECIFIED
--- NOTE | 2017-08-15 16:19 | PN ---
Progress Note (short form) - Note Progress Note: Echo from 07/13: severe aortic sclerosis and presumed severe aortic stenosis noted Problem List - Problems (1) Lower GI bleed Code(s): K92.2 - GASTROINTESTINAL HEMORRHAGE, UNSPECIFIED
[2017-08-15] MEDS: COLLAGENASE CLOSTRIDIUM HIST. 30 GRAMS TUBE TP SCH (17:57)
[2017-08-16] MEDS: CHLORHEXIDINE GLUCONATE 4% CLEANSER FOR DECOLONIZATION TP SCH ×2 (02:14→21:39)
[2017-08-16] MEDS ORDERED: LEVOTHYROXINE NA 25 MCG TABLET (FP) ONE (05:45)
[2017-08-16] MEDS ORDERED: LEVOTHYROXINE NA 100 MCG TABLET (FP) ONE (05:45)
[2017-08-16] MEDS: LEVOTHYROXINE 25 MCG, LEVOTHYROXINE 200 MCG PO SCH (06:22)
[2017-08-16 06:26] LABS: BASO % 1.1 % (0-2.0); EOS % 5.6 % (0-4.5); HEMATOCRIT 25.1 % (32.4-45.2); HEMOGLOBIN 8.3 GM/dL (10.7-15.3); LYMPH % 16.9 % (8-40); MCH 32.8 pg (25.7-33.7); MEAN CELL VOLUME 99.2 fl (80-96); MEAN PLT VOLUME 7.5 fl (7.5-11.1); MONO % 9.1 % (3.8-10.2); NEUT % 67.3 % (42.8-82.8); PLATELET COUNT 205 K/MM3 (134-434); RBC 2.53 M/mm3 (3.60-5.2); RDW 21.6 % (11.6-15.6); WHITE BLOOD COUNT 6.1 K/mm3 (4.0-10.0)
[2017-08-16 07:00] LABS: ANION GAP 7 (8-16); BLOOD UREA NITROGEN 35 mg/dL (7-18); CALCIUM 7.3 mg/dL (8.5-10.1); CHLORIDE 101 mmol/L (98-107); CO2 28 mmol/L (21-32); CREATININE 4.5 mg/dL (0.55-1.02); GLUCOSE,RANDOM 65 mg/dL (74-106); MAGNESIUM 2.4 mg/dL (1.8-2.4); PHOSPHOROUS 3.1 mg/dL (2.5-4.9); POTASSIUM 4.5 mmol/L (3.5-5.1); SODIUM 136 mmol/L (136-145)
[2017-08-16] MEDS ORDERED: PT OWN MED DRAWER 7, Y5N ONE (08:56)
[2017-08-16] MEDS: SEVELAMER CARBONATE 800 MG TAB (FP) PO SCH ×3 (09:07→17:38)
[2017-08-16] MEDS: MUPIROCIN 2% TOPICAL OINTMENT FOR DECOLONIZATION NS SCH ×2 (09:08→21:39)
[2017-08-16] MEDS: FUROSEMIDE 40 MG TABLET (FP) PO SCH (09:08)
[2017-08-16] MEDS: POLYETHYLENE GLYCOL 3350 119 GM BTL PO SCH ×3 (09:10→22:44)
[2017-08-16] MEDS: PANTOPRAZOLE 20 MG TABLET (FP) PO SCH (09:11)
[2017-08-16] MEDS: COLLAGENASE CLOSTRIDIUM HIST. 30 GRAMS TUBE TP SCH (09:11)
[2017-08-16] MEDS: MULTIVITAMINS (DAILY MVI) TABLET (FP) PO SCH (09:11)
[2017-08-16] MEDS: CHOLECALCIFEROL (VITAMIN D3) 1,000 UNIT TABLET (FP) PO SCH (09:12)
[2017-08-16] MEDS: oxyCODONE HCL 5 MG TABLET PO PRN ×2 (11:00→21:38)
[2017-08-16] MEDS: ACETAMINOPHEN 325 MG TABLET (FP) PO PRN ×2 (11:00→21:37)
--- NOTE | 2017-08-16 11:00 | PN ---
Progress Note (short form) - Note Progress Note: Renal follow up for ESRD on HD/Anemia Pt seen and examined in the ICU awake and alert no sob, chest pain one small bloody BM last night s/p 1 unit PRBC transfusion yesterday no abd pain having pain at hip no fever, chills Vital Signs Temperature 97.3 F L 08/16/17 10:00 Pulse Rate 89 08/16/17 10:00 Respiratory Rate 22 08/16/17 10:00 Blood Pressure 122/61 08/16/17 10:00 O2 Sat by Pulse Oximetry (%) 100 08/16/17 08:13 Intake & Output 08/13/17 08/14/17 08/15/17 08/16/17 23:59 23:59 23:59 23:59 Intake Total 717 300 Output Total 0 Balance 717 300 Weight 86.183 kg 89.811 kg 88.723 kg NAD awake and alert No LE edema CBC, BMP 08/16/17 06:00 08/16/17 06:00 Current Medications Acetaminophen (Tylenol -) 650 mg PO Q6H PRN PRN Reason: FEVER OR PAIN Last Admin: 08/15/17 22:59 Dose: 650 mg Chlorhexidine Gluconate (Hibiclens For Decolonization -) 1 applic TP HS [facility] Last Admin: 08/16/17 02:14 Dose: 1 applic Cholecalciferol (Vitamin D3 -) 2,000 unit PO DAILY [facility] Last Admin: 08/16/17 09:12 Dose: 2,000 unit Cinacalcet (Sensipar -) 30 mg PO MoWeFr@1000 [facility] Last Admin: 08/15/17 09:28 Dose: 30 mg Collagenase (Santyl -) 1 applic TP DAILY [facility] Last Admin: 08/16/17 09:11 Dose: 1 applic Epoetin Cesar (Procrit -) 20,000 unit IVPUSH ONCE ONE Stop: 08/16/17 09:57 Furosemide (Lasix -) 80 mg PO DAILY [facility] Last Admin: 08/16/17 09:08 Dose: 80 mg Levofloxacin (Levaquin 250 Mg Premixed Ivpb -) 250 mg in 50 mls @ 50 mls/hr IVPB Q2D@1000 [facility] Last Admin: 08/16/17 09:09 Dose: 50 mls/hr Labetalol HCl (Normodyne -) 300 mg PO BID [facility] Last Admin: 08/15/17 23:00 Dose: 300 mg Levothyroxine Sodium 25 mcg/ (Levothyroxine Sodium 200 mcg) 225 mcg PO DAILY@ 0700 [facility] Last Admin: 08/16/17 06:22 Dose: 225 mcg Multivitamins/Minerals/Vitamin C (Tab-A-Vit -) 1 tab PO DAILY [facility] Last Admin: 08/16/17 09:11 Dose: 1 tab Mupirocin (Bactroban Ointment (For Decolonization) -) 1 applic NS BID [facility] Stop: 08/19/17 21:59 Last Admin: 08/16/17 09:08 Dose: 1 applic Oxycodone HCl (Roxicodone -) 5 mg PO Q6H PRN PRN Reason: PAIN Last Admin: 08/15/17 23:00 Dose: 5 mg Pantoprazole Sodium (Protonix -) 20 mg PO DAILY [facility] Last Admin: 08/16/17 09:11 Dose: 20 mg Polyethylene Glycol (Miralax (For Daily Use) -) 17 gm PO BID [facility] Last Admin: 08/16/17 09:10 Dose: Not Given Sevelamer Carbonate (Renvela -) 800 mg PO TIDCM [facility] Last Admin: 08/16/17 09:07 Dose: 800 mg 82 year old woman with PMhx of ESRD no HD x 7 years, hypertension, DM, s/p recent hip replacement presented from HD with bright red blood per rectum. #Acute GI Bleed with acute on chronic anemia no further active bleeding at this time Hgb improved s/p transfusion no acute transfusion needed at this time trend CBC twice daily Gi following #ESRD on HD for dialysis today with UF as tolerated #s/p recent hip replacement supportive care pain control orthopedic follow up #Hypertension BP stable off meds Thank you Kenny Yeboah DO
--- NOTE | 2017-08-16 11:26 | PN ---
GI Progress Note Subjective: No acte events S/P 1 U PRBC yesterday No active bleeding reported and Ms. Yoon denies abdominal pain Small smear of blood noted in diaper this morning per nurse Ms. Yoon's main complaint currently is right hip pain - Objective Vital Signs: Vital Signs Temperature 97.3 F L 08/16/17 10:00 Pulse Rate 89 08/16/17 10:00 Respiratory Rate 22 08/16/17 10:00 Blood Pressure 122/61 08/16/17 10:00 O2 Sat by Pulse Oximetry (%) 100 08/16/17 08:13 Constitutional: Calm Eyes: No: Sclera Icterus Cardiovascular: Yes: Regular Rate and Rhythm Respiratory: Yes: Diminished (at bases b/l, poor insp effort) Gastrointestinal Inspection: No: Distention ...Auscultate: Yes: Normoactive Bowel Sounds ...Palpate: No: Hepatomegaly, Splenomegaly, Tenderness ...Percussion: No: Tympanitic Edema: LLE: 1+, RLE: 1+ Labs: CBC, BMP 08/16/17 06:00 08/16/17 06:00 INR, PTT INR 1.24 (0.82-1.09) H 08/14/17 12:42 Problem List - Problems (1) Lower GI bleed Assessment/Plan: Painless rectal bleeding. Remains hemodynamically stable Continuing to monitor while on clear liquids Attempting to treat conservatively at this time given recent right hip surgery Dr. Hampton will be available for coverage starting 08/17 Code(s): K92.2 - GASTROINTESTINAL HEMORRHAGE, UNSPECIFIED
[2017-08-16] MEDS ORDERED: EPOETIN ALFA 20,000 UNIT/1 ML VIAL IVPUSH ONE (12:30)
--- NOTE | 2017-08-16 12:30 | PN ---
Physical Exam: SUBJECTIVE: Patient seen and examined in ICU Patient had bloody clots in stool yesterday. Patient's hgb was 7.5, received 1u PRBC and hgb responded appropriately. Patient has no acute events overnight, no BM. Patient denies fever, chills, chest pain, sob, abdominal pain. Patient complains of hip pain OBJECTIVE: Vital Signs Period Temp Pulse Resp BP Sys/Willson Pulse Ox Last 24 Hr 97.3 F-98.6 F 84-93 13-27 92-122/54-70 100-100 GENERAL: The patient is awake, alert, and fully oriented, in no acute distress. HEAD: Normal with no signs of trauma. EYES: Extraocular movements intact, sclera anicteric, conjunctiva clear. No ptosis. NECK: Trachea midline, full range of motion, supple. LUNGS: Breath sounds equal, decreased at the bases, clear to auscultation bilaterally, no wheezes, no crackles, no accessory muscle use. HEART: Regular rate and rhythm, S1, S2, +Systolic ejection murmur ABDOMEN: Soft, nontender, nondistended, normoactive bowel sounds, no guarding, no rebound, no hepatosplenomegaly, no masses. EXTREMITIES: 2+ pulses, warm, well-perfused, +edema. +Incision site with well healing skin on right hip PSYCH: Normal mood, normal affect. SKIN: Warm, dry, normal turgor, no rashes or lesions noted Laboratory Results - last 24 hr 08/14/17 08/15/17 08/15/17 12:42 14:30 18:07 WBC 6.1 RBC 2.26 L Hgb 7.5 L Hct 23.1 L MCV 102.2 H MCH 33.2 MCHC 32.5 RDW 22.1 H Plt Count 195 MPV 7.6 Neutrophils % 73.7 Lymphocytes % 13.2 Monocytes % 8.0 Eosinophils % 4.0 Basophils % 1.1 Sodium Potassium Chloride Carbon Dioxide Anion Gap BUN Creatinine POC Glucometer [id number] Random Glucose Calcium Phosphorus Magnesium Blood Type O POSITIVE Antibody Screen Negative Crossmatch See Detail 08/16/17 08/16/17 08/16/17 06:00 06:00 11:25 WBC 6.1 RBC 2.53 L Hgb 8.3 L D Hct 25.1 L MCV 99.2 H MCH 32.8 MCHC 33.0 RDW 21.6 H Plt Count 205 MPV 7.5 Neutrophils % 67.3 Lymphocytes % 16.9 D Monocytes % 9.1 Eosinophils % 5.6 H Basophils % 1.1 Sodium 136 Potassium 4.5 Chloride 101 Carbon Dioxide 28 Anion Gap 7 L BUN 35 H D Creatinine 4.5 H POC Glucometer 99.36636 Random Glucose 65 L Calcium 7.3 L Phosphorus 3.1 D Magnesium 2.4 D Blood Type Antibody Screen Crossmatch Active Medications Generic Name Dose Route Start Last Admin Trade Name Freq PRN Reason Stop Dose Admin Acetaminophen 650 mg 08/14/17 18:56 08/16/17 11:00 Tylenol - PO 650 mg Q6H PRN Administration FEVER OR PAIN Chlorhexidine Gluconate 1 applic 08/14/17 22:00 08/16/17 02:14 Hibiclens For Decolonization - TP 1 applic HS ERNESTINE Administration Cholecalciferol 2,000 unit 08/15/17 10:00 08/16/17 09:12 Vitamin D3 - PO 2,000 unit DAILY ERNESTINE Administration Cinacalcet 30 mg 08/15/17 10:00 08/15/17 09:28 Sensipar - PO 30 mg MoWeFr@1000 ERNESTINE Administration Collagenase 1 applic 08/15/17 10:00 08/16/17 09:11 Santyl - TP 1 applic DAILY ERNESTINE Administration Epoetin Cesar 20,000 unit 08/16/17 12:30 Procrit - IVPUSH 08/16/17 12:31 ONCE ONE Furosemide 80 mg 08/15/17 10:00 08/16/17 09:08 Lasix - PO 80 mg DAILY ERNESTINE Administration Levofloxacin 250 mg in 50 mls @ 50 mls/hr 08/14/17 22:30 08/16/17 09:09 Levaquin 250 Mg Premixed Ivpb - IVPB 50 mls/hr Q2D@1000 ERNESTINE Administration Labetalol HCl 300 mg 08/14/17 22:00 08/15/17 23:00 Normodyne - PO 300 mg BID ERNESTINE Administration Levothyroxine Sodium 25 mcg/ 225 mcg 08/15/17 07:00 08/16/17 06:22 Levothyroxine Sodium 200 mcg PO 225 mcg DAILY@0700 ERNESTINE Administration Multivitamins/Minerals/Vitamin C 1 tab 08/15/17 10:00 08/16/17 09:11 Tab-A-Vit - PO 1 tab DAILY ERNESTINE Administration Mupirocin 1 applic 08/14/17 22:00 08/16/17 09:08 Bactroban Ointment (For Decolonization) - NS 08/19/17 21:59 1 applic BID ERNESTINE Administration Oxycodone HCl 5 mg 08/14/17 19:01 08/16/17 11:00 Roxicodone - PO 5 mg Q6H PRN Administration PAIN Pantoprazole Sodium 20 mg 08/15/17 10:00 08/16/17 09:11 Protonix - PO 20 mg DAILY ERNESTINE Administration Polyethylene Glycol 17 gm 08/14/17 22:00 08/16/17 09:10 Miralax (For Daily Use) - PO Not Given BID ERNESTINE Sevelamer Carbonate 800 mg 08/15/17 08:00 08/16/17 12:21 Renvela - PO 800 mg TIDCM ERNESTINE Administration ASSESSMENT/PLAN: 82 y.o. F with pmh of HTN, HLD, DM, CAD s/p stent, LV CHF, MR, , ESRD on HD, and recent right hip surgery presenting with BRBPR GI GI bleed, likely lower GI -monitor H/H, transfuse with prbc if hgb drops below 8, received 1 unit -PO protonix 20 mg -F/u with GI, Dr. Caal -Hold any AC -Pain control with oxycodone and acetaminophen -miralax 17 g po bid -Colonoscopy deferred at this time 2/2 to right hip pain and recent surgery Resp Pneumonia, CAP -Infiltrate seen on CXR -Continue levaquin Heme Anemia 2/2 to GI Bleed -Hold AC -Monitor H/H, transfuse below 8 Nephro ESRD on HD -Dr. Yeboah on board -HD TTS -Due for HD today -Lasix 80 mg po daily CV HTN LV CHF MR -continue labetolol 300 mg po bid -continue lasix 80 mg po daily Endo DM Hypothyroidism -Continue with synthroid 225 mcg po daily FEN/GI -No IVF at this time -wnl -Sodium controlled diet, breakfast held pending GI recs PPx -SCD's, Teds for DVT ppx -PO protonix for GI ppx Dispo: Transfer to med surg Visit type - Emergency Visit Emergency Visit: Yes ED Registration Date: 08/14/17 Care time: The patient presented to the Emergency Department on the above date and was hospitalized for further evaluation of their emergent condition. - New Patient This patient is new to me today: Yes Date on this admission: 08/16/17 - Critical Care Critical Care patient: Yes Total Critical Care Time (in minutes): 35 Critical Care Statement: The care of this patient involved high complexity decision making to prevent further life threatening deterioration of the patient 's condition and/or to evaluate & treat vital organ system(s) failure or risk of failure.
--- NOTE | 2017-08-16 12:51 | PN ---
Teaching Attending Note Name of Resident: Vinicius Ponce ATTENDING PHYSICIAN STATEMENT I saw and evaluated the patient. I reviewed the resident's note and discussed the case with the resident. I agree with the resident's findings and plan as documented. SUBJECTIVE: Pt seen and examined in the ICU. Episode of bright red blood yesterday and drop in H/H, transfused 1 unit PRBC with appropriate response. Denies shortness of breath, chest pain or abdominal pain. OBJECTIVE: Last Vital Signs Temp Pulse Resp BP Pulse Ox 97.3 F L 87 20 107/70 100 08/16/17 10:00 08/16/17 12:00 08/16/17 12:00 08/16/17 12:00 08/16/17 08:13 Intake & Output 08/13/17 08/14/17 08/15/17 08/16/17 23:59 23:59 23:59 23:59 Intake Total 717 300 Output Total 0 Balance 717 300 Weight 86.183 kg 89.811 kg 88.723 kg Gen: NAD at rest Heart: RRR Lung: decreased breaths sounds at the bases Abd: soft, nontender Ext: less edema CBC, BMP 08/16/17 06:00 08/16/17 06:00 Active Medications Acetaminophen (Tylenol -) 650 mg PO Q6H PRN PRN Reason: FEVER OR PAIN Last Admin: 08/16/17 11:00 Dose: 650 mg Chlorhexidine Gluconate (Hibiclens For Decolonization -) 1 applic TP HS [facility] Last Admin: 08/16/17 02:14 Dose: 1 applic Cholecalciferol (Vitamin D3 -) 2,000 unit PO DAILY [facility] Last Admin: 08/16/17 09:12 Dose: 2,000 unit Cinacalcet (Sensipar -) 30 mg PO MoWeFr@1000 [facility] Last Admin: 08/15/17 09:28 Dose: 30 mg Collagenase (Santyl -) 1 applic TP DAILY [facility] Last Admin: 08/16/17 09:11 Dose: 1 applic Furosemide (Lasix -) 80 mg PO DAILY [facility] Last Admin: 08/16/17 09:08 Dose: 80 mg Levofloxacin (Levaquin 250 Mg Premixed Ivpb -) 250 mg in 50 mls @ 50 mls/hr IVPB Q2D@1000 [facility] Last Admin: 08/16/17 09:09 Dose: 50 mls/hr Labetalol HCl (Normodyne -) 300 mg PO BID [facility] Last Admin: 08/15/17 23:00 Dose: 300 mg Levothyroxine Sodium 25 mcg/ (Levothyroxine Sodium 200 mcg) 225 mcg PO DAILY@ 0700 [facility] Last Admin: 08/16/17 06:22 Dose: 225 mcg Multivitamins/Minerals/Vitamin C (Tab-A-Vit -) 1 tab PO DAILY [facility] Last Admin: 08/16/17 09:11 Dose: 1 tab Mupirocin (Bactroban Ointment (For Decolonization) -) 1 applic NS BID [facility] Stop: 08/19/17 21:59 Last Admin: 08/16/17 09:08 Dose: 1 applic Oxycodone HCl (Roxicodone -) 5 mg PO Q6H PRN PRN Reason: PAIN Last Admin: 08/16/17 11:00 Dose: 5 mg Pantoprazole Sodium (Protonix -) 20 mg PO DAILY [facility] Last Admin: 08/16/17 09:11 Dose: 20 mg Polyethylene Glycol (Miralax (For Daily Use) -) 17 gm PO BID [facility] Last Admin: 08/16/17 09:10 Dose: Not Given Sevelamer Carbonate (Renvela -) 800 mg PO TIDCM [facility] Last Admin: 08/16/17 12:21 Dose: 800 mg ASSESSMENT AND PLAN: GI Bleed likely Lower Anemia ESRD on HD LV Systolic Dysfunction Mitral Regurgitation Aortic Stenosis HTN DM - monitor H/H - transfuse as needed - ddAVP if continues to bleed and H/H dropping - protonix - HD per renal - hold all anticoagulation, antiplatelets - PO as tolerated - ensure large bore peripheral access - pain control - can monitor on floor
[2017-08-16 13:22] LABS: HEMOGLOBIN 8.1 GM/dL (10.7-15.3); MCH 32.2 pg (25.7-33.7); MCHC 32.5 g/dl (32.0-36.0); MEAN CELL VOLUME 99.3 fl (80-96); MEAN PLT VOLUME 7.5 fl (7.5-11.1); PLATELET COUNT 189 K/MM3 (134-434); RBC 2.52 M/mm3 (3.60-5.2); RDW 21.6 % (11.6-15.6); WHITE BLOOD COUNT 6.1 K/mm3 (4.0-10.0)
[2017-08-16] MEDS: LABETALOL HCL 100 MG TABLET (FP) PO SCH ×3 (17:36→22:44)
--- NOTE | 2017-08-16 18:29 | PN ---
Progress Note (short form) - Note Progress Note: patient seen and examined. Feels okay Likely MRSA wound healed wound Discussed with the resident staff--Will order x-ray as well as wound care consult as well as ID to evaluate Nursing staff also reports one episode of bleeding--small amount--last night Patient otherwise feels well Vital Signs Temp 97.4 F L 08/16/17 17:18 Pulse 92 H 08/16/17 17:18 Resp 14 08/16/17 17:18 BP 134/67 08/16/17 17:18 Pulse Ox 100 08/16/17 08:13 Intake & Output 08/15/17 08/16/17 08/16/17 23:59 11:59 23:59 Intake Total 300 400 Balance 300 400 Weight 198 lb 195 lb 9.6 oz Intake: Oral 300 400 Other: Voiding Method Diaper Diaper Diaper Bowel Movement Yes No # Bowel Movements 1 Height 5 ft 6 in Body Mass Index (BMI) 31.9 Weight Measurement Method [facility] Active Medications Acetaminophen (Tylenol -) 650 mg PO Q6H PRN PRN Reason: FEVER OR PAIN Last Admin: 08/16/17 11:00 Dose: 650 mg Chlorhexidine Gluconate (Hibiclens For Decolonization -) 1 applic TP HS [facility] Last Admin: 08/16/17 02:14 Dose: 1 applic Cholecalciferol (Vitamin D3 -) 2,000 unit PO DAILY [facility] Last Admin: 08/16/17 09:12 Dose: 2,000 unit Cinacalcet (Sensipar -) 30 mg PO MoWeFr@1000 [facility] Last Admin: 08/15/17 09:28 Dose: 30 mg Collagenase (Santyl -) 1 applic TP DAILY [facility] Last Admin: 08/16/17 09:11 Dose: 1 applic Furosemide (Lasix -) 80 mg PO DAILY [facility] Last Admin: 08/16/17 09:08 Dose: 80 mg Levofloxacin (Levaquin 250 Mg Premixed Ivpb -) 250 mg in 50 mls @ 50 mls/hr IVPB Q2D@1000 [facility] Last Admin: 08/16/17 09:09 Dose: 50 mls/hr Labetalol HCl (Normodyne -) 300 mg PO BID [facility] Last Admin: 08/16/17 17:36 Dose: Not Given Levothyroxine Sodium 25 mcg/ (Levothyroxine Sodium 200 mcg) 225 mcg PO DAILY@ 0700 [facility] Last Admin: 08/16/17 06:22 Dose: 225 mcg Multivitamins/Minerals/Vitamin C (Tab-A-Vit -) 1 tab PO DAILY [facility] Last Admin: 08/16/17 09:11 Dose: 1 tab Mupirocin (Bactroban Ointment (For Decolonization) -) 1 applic NS BID [facility] Stop: 08/19/17 21:59 Last Admin: 08/16/17 09:08 Dose: 1 applic Oxycodone HCl (Roxicodone -) 5 mg PO Q6H PRN PRN Reason: PAIN Last Admin: 08/16/17 11:00 Dose: 5 mg Pantoprazole Sodium (Protonix -) 20 mg PO DAILY [facility] Last Admin: 08/16/17 09:11 Dose: 20 mg Polyethylene Glycol (Miralax (For Daily Use) -) 17 gm PO BID [facility] Last Admin: 08/16/17 09:10 Dose: Not Given Sevelamer Carbonate (Renvela -) 800 mg PO TIDCM [facility] Last Admin: 08/16/17 17:38 Dose: 800 mg CBC, BMP 08/16/17 12:50 08/16/17 06:00 Microbiology 08/14/17 12:30 Gram Stain - Final Foot - Right Heel Wound Culture - Preliminary Presumptive Mrsa (Pbp2a Pos) Non Lactose Fermenting Gnb Physical Examination Constitutional: Yes: Alert and awake. No distress Eyes: Yes: Conjunctiva Clear Neck: Yes: Supple/ no JVD Cardiovascular: Yes: Pulse Irregular Respiratory: Yes: CTA Bilaterally Gastrointestinal: Yes: Soft/ nontender Edema: No Wound/Incision: Yes: Other (right heel) right hip--- [place] in place--- redness around--- surgical site--- slightly tender Neurological: Yes: Alert Assessment/Plan clinically better. Continue present care and monitor H&H Wound care and ID consults x-ray of the heel GI to follow Orthopedics follow-up pending--will follow. Problem List - Problems (1) Pneumonia Code(s): J18.9 - PNEUMONIA, UNSPECIFIED ORGANISM (2) ESRD (end stage renal disease) on dialysis Code(s): N18.6 - END STAGE RENAL DISEASE; Z99.2 - DEPENDENCE ON RENAL DIALYSIS (3) Lower GI bleed Code(s): K92.2 - GASTROINTESTINAL HEMORRHAGE, UNSPECIFIED (4) Aortic stenosis Code(s): I35.0 - NONRHEUMATIC AORTIC (VALVE) STENOSIS (5) Atrial fibrillation Code(s): I48.91 - UNSPECIFIED ATRIAL FIBRILLATION (6) CAD (coronary artery disease) Code(s): I25.10 - ATHSCL HEART DISEASE OF [place] CORONARY ARTERY W/O ANG PCTRS (7) Diabetes Code(s): E11.9 - TYPE 2 DIABETES MELLITUS WITHOUT COMPLICATIONS (8) Hip pain, right Code(s): M25.551 - PAIN IN RIGHT HIP (9) S/P hip replacement Code(s): Z96.649 - PRESENCE OF UNSPECIFIED ARTIFICIAL HIP JOINT
--- NOTE | 2017-08-16 18:31 | PN ---
Progress Note (short form) - Note Progress Note: Patient with presumptive MRSA growth R heel. D/W Dr Chilel Microbiology 08/14/17 12:30 Foot - Right Heel Gram Stain - Final 08/14/17 12:30 Foot - Right Heel Wound Culture - Preliminary Presumptive Mrsa (Pbp2a Pos) Non Lactose Fermenting Gnb Plan: ID consult- Dr Durand Xray of R heel- R/O osteomyelitis Vascular consult- Dr Sinclair CXR Contact precautions
[2017-08-16] MEDS ORDERED: ACETAMINOPHEN 325 MG TABLET (FP) PO PRN (21:52)
[2017-08-17] MEDS ORDERED: LEVOTHYROXINE NA 100 MCG TABLET (FP) ONE (05:46)
[2017-08-17] MEDS ORDERED: LEVOTHYROXINE NA 25 MCG TABLET (FP) ONE (05:46)
[2017-08-17] MEDS: LEVOTHYROXINE 25 MCG, LEVOTHYROXINE 200 MCG PO SCH (06:38)
[2017-08-17 08:52] LABS: BASO % 0.9 % (0-2.0); EOS % 3.5 % (0-4.5); HEMOGLOBIN 8.6 GM/dL (10.7-15.3); LYMPH % 14.9 % (8-40); MCH 32.7 pg (25.7-33.7); MCHC 32.9 g/dl (32.0-36.0); MEAN CELL VOLUME 99.5 fl (80-96); MEAN PLT VOLUME 7.3 fl (7.5-11.1); MONO % 8.3 % (3.8-10.2); NEUT % 72.4 % (42.8-82.8); PLATELET COUNT 175 K/MM3 (134-434); RBC 2.61 M/mm3 (3.60-5.2); RDW 21.9 % (11.6-15.6); WHITE BLOOD COUNT 6.2 K/mm3 (4.0-10.0)
[2017-08-17 09:23] LABS: ANION GAP 6 (8-16); BLOOD UREA NITROGEN 19 mg/dL (7-18); CALCIUM 7.4 mg/dL (8.5-10.1); CHLORIDE 99 mmol/L (98-107); CO2 31 mmol/L (21-32); CREATININE 3.3 mg/dL (0.55-1.02); GLUCOSE,RANDOM 60 mg/dL (74-106); PHOSPHOROUS 2.4 mg/dL (2.5-4.9); POTASSIUM 3.4 mmol/L (3.5-5.1); SODIUM 136 mmol/L (136-145)
[2017-08-17] MEDS ORDERED: PT OWN MED DRAWER 7, Y5N ONE ×2 (09:57→21:32)
--- NOTE | 2017-08-17 10:01 | CONSULT ---
Consultation: REQUESTING PROVIDER: CONSULT REQUEST: We have been asked to medically evaluate this patient for positive R heel wound culture. R/o OM HISTORY OF PRESENT ILLNESS: 82 y/o F with PMH ESRD on dialysis, OA, HTN, DM, HLD, hemorrhoids, s/p R hip replacement and removal of hardware(07/27/2017), recent hospitalization for cellulitis and abscess of RLE-07/31/2017, who came to the ED from [facility] d/t rectal bleed. As per pt, after she had her hip replacement in July, she was transferred to the floor and then went to [facility] to do rehab. Most recently, on (08/16/17), she went to dialysis and when she was being moved, nurses noticed there was BRB on the chair. During this time, pt denied ROMEO, fever, chills, dizziness, or lightheadedness. While on floor, pt seen by GI and is being treated conservatively as she is hemodynamically stable. Colonoscopy difficult d/t pain in pt's R hip. Pt stated that in February 2017, she also noticed "something starting on her heel." She experienced neuropathy and was unaware that the wound was growing. Seen in February for cellulitis and abscess of RLE-07/31/17. At time, wound cx was (+) for E.coli, staph coag negative bacteria. Pt was also managed by vascular. ID team consulted for positive R heel wound culture, R/o OM. REVIEW OF SYSTEMS: CONSTITUTIONAL: Absent: fever, chills, diaphoresis, generalized weakness, malaise, loss of appetite, weight change HEENT: Absent: rhinorrhea, nasal congestion, throat pain, throat swelling, difficulty swallowing, mouth swelling, ear pain, eye pain, visual changes CARDIOVASCULAR: Absent: chest pain, syncope, palpitations, irregular heart rate, lightheadedness , peripheral edema RESPIRATORY: Absent: cough, shortness of breath, dyspnea with exertion, orthopnea, wheezing, stridor, hemoptysis GASTROINTESTINAL: Absent: abdominal pain, abdominal distension, nausea, vomiting, diarrhea, constipation, melena, hematochezia GENITOURINARY: Absent: dysuria, frequency, urgency, hesitancy, hematuria, flank pain, genital pain MUSCULOSKELETAL: +R hip pain s/p hip replacement Absent: myalgia, arthralgia, joint swelling, back pain, neck pain SKIN: +R hip incision line- erythematous, flaky. +R heel wound Absent: rash, itching, pallor HEMATOLOGIC/IMMUNOLOGIC: +ecchymoses RUE Absent: easy bleeding, easy bruising, lymphadenopathy, frequent infections ENDOCRINE: Absent: unexplained weight gain, unexplained weight loss, heat intolerance, cold intolerance NEUROLOGIC: Absent: headache, focal weakness or paresthesias, dizziness, unsteady gait, seizure, mental status changes, bladder or bowel incontinence PSYCHIATRIC: Absent: anxiety, depression, suicidal or homicidal ideation, hallucinations. PHYSICAL EXAMINATION Vital Signs 08/16/17 08/16/17 08/16/17 16:25 17:18 20:00 Temperature 97.4 F L Pulse Rate 90 92 H 78 Respiratory 18 14 16 Rate Blood Pressure 132/67 134/67 114/71 O2 Sat by Pulse Oximetry (%) 08/16/17 08/16/17 08/17/17 21:42 22:00 06:00 Temperature 97.4 F L 97.7 F Pulse Rate 89 90 Respiratory 20 16 Rate Blood Pressure 114/58 112/53 O2 Sat by Pulse 100 Oximetry (%) GENERAL: Resting in bed. Awake, alert, and fully oriented, in moderate distress when moving in bed (severe hip pain). HEAD: Normal with no signs of trauma. EYES: Pupils equal, round and reactive to light, extraocular movements intact, sclera anicteric, conjunctiva clear. EARS, NOSE, THROAT: Ears normal, nares patent, oropharynx clear without exudates. NECK: Normal range of motion, supple without lymphadenopathy, JVD, or masses. LUNGS: Breath sounds equal, clear to auscultation bilaterally. No wheezes, and no crackles. HEART: Regular rate and rhythm, normal S1 and S2 without murmur, rub or gallop. ABDOMEN: Soft, obese, nontender, not distended, normoactive bowel sounds, no guarding, no rebound, no masses. LOWER EXTREMITIES: 2+ posterior tibial pulses, warm, well-perfused. Peripheral edema 1+ in RLE, not noted in RLE. R calcaneous: draining wound ulcer with yellow purulent drainage, with mild erythema inside ulcer. NEUROLOGICAL: Cranial nerves II-XII appear to be grossly intact. SKIN: R hip- erythematous, flaky in shape of bandage Laboratory Results 08/17/17 08/17/17 07:00 07:00 WBC 6.2 Hgb 8.6 L Hct 26.0 L Plt Count 175 Sodium 136 Potassium 3.4 L D Chloride 99 Carbon Dioxide 31 BUN 19 H D Creatinine 3.3 H D Random Glucose 60 L Microbiology 08/14/17 12:30 Foot - Right Heel Gram Stain - Final 07/23/17 20:25 Blood - Peripheral Venous Blood Culture - Final NO GROWTH AFTER 5 DAYS INCUBATION 08/14/17 12:30 Foot - Right Heel Wound Culture - Preliminary Presumptive Mrsa (Pbp2a Pos) Non Lactose Fermenting Gnb IMAGING 08/17/17: + L base - fluid or atelectasis Active Medications Generic Name Dose Route Start Last Admin Trade Name Freq PRN Reason Stop Dose Admin Acetaminophen 650 mg 08/16/17 21:52 Tylenol - PO Q6H PRN FEVER OR PAIN Cholecalciferol 2,000 unit 08/17/17 10:00 Vitamin D3 - PO DAILY [facility] Cinacalcet 30 mg 08/17/17 10:00 Sensipar - PO MoWeFr@1000 [facility] Collagenase 1 applic 08/17/17 10:00 Santyl - TP DAILY [facility] Furosemide 80 mg 08/17/17 10:00 Lasix - PO DAILY [facility] Levofloxacin 250 mg in 50 mls @ 50 mls/hr 08/18/17 10:00 Levaquin 250 Mg Premixed Ivpb - IVPB Q2D@1000 [facility] Labetalol HCl 300 mg 08/16/17 22:00 08/16/17 22:44 Normodyne - PO Not Given BID [facility] Levothyroxine Sodium 25 mcg/ 225 mcg 08/17/17 07:00 08/17/17 06:38 Levothyroxine Sodium 200 mcg PO 225 mcg DAILY@0700 [facility] Administration Multivitamins/Minerals/Vitamin C 1 tab 08/17/17 10:00 Tab-A-Vit - PO DAILY [facility] Oxycodone HCl 5 mg 08/16/17 21:52 Roxicodone - PO Q6H PRN PAIN Pantoprazole Sodium 20 mg 08/17/17 10:00 Protonix - PO DAILY [facility] Polyethylene Glycol 17 gm 08/16/17 22:00 08/16/17 22:44 Miralax (For Daily Use) - PO Not Given BID [facility] Sevelamer Carbonate 800 mg 08/17/17 08:00 Nazario DELGADILLO [facility] ASSESSMENT/PLAN: #R heel wound cx, r/o OM -Pt afebrile, without leukocytosis -Pencillin allergic: develops pruritic rash -R heel wound: with mild erythema, purulent yellow discharge -F/u R foot x-ray, will evaluate if need MRI after -Started on vancomycin 1g IVPB qd -Started on aztreonam 500mg q12, as pt PCN allergic -F/u ESR, CRP -F/u blood cx -F/u vascular -for dialysis tomorrow Thank you Jody Craven MD PGY-1 ID Team Dispo: We will continue to follow the patient. Thank you for this consultative opportunity. Visit type - Emergency Visit Emergency Visit: No - New Patient This patient is new to me today: Yes Date on this admission: 08/17/17 - Critical Care Critical Care patient: No
[2017-08-17] MEDS: SEVELAMER CARBONATE 800 MG TAB (FP) PO SCH ×3 (10:08→17:24)
[2017-08-17] MEDS: LABETALOL HCL 100 MG TABLET (FP) PO SCH ×2 (10:08→22:16)
--- NOTE | 2017-08-17 10:08 | PN ---
Progress Note (short form) - Note Progress Note: patient seen and examined in her room denies chest paiin , sob, dizziness no more rectal bleeding as per patient tolerating clears no complaints of abdominal pain,nausea, vomiting Vital Signs Temp 97.7 F 08/17/17 06:00 Pulse 90 08/17/17 06:00 Resp 16 08/17/17 06:00 BP 112/53 08/17/17 06:00 Pulse Ox 100 08/16/17 21:42 Intake & Output 08/16/17 08/16/17 08/17/17 11:59 23:59 11:59 Intake Total 1100 Balance 1100 Weight 195 lb 9.6 oz 195 lb 6.4 oz Intake: Oral 1100 Other: Voiding Method Diaper Diaper Bowel Movement No Yes: small No Weight Measurement Method Built in Bedscale Built in Bedscale Active Medications Acetaminophen (Tylenol -) 650 mg PO Q6H PRN PRN Reason: FEVER OR PAIN Cholecalciferol (Vitamin D3 -) 2,000 unit PO DAILY [facility] Cinacalcet (Sensipar -) 30 mg PO MoWeFr@1000 [facility] Collagenase (Santyl -) 1 applic TP DAILY [facility] Furosemide (Lasix -) 80 mg PO DAILY [facility] Levofloxacin (Levaquin 250 Mg Premixed Ivpb -) 250 mg in 50 mls @ 50 mls/hr IVPB Q2D@1000 [facility] Labetalol HCl (Normodyne -) 300 mg PO BID [facility] Last Admin: 08/16/17 22:44 Dose: Not Given Levothyroxine Sodium 25 mcg/ (Levothyroxine Sodium 200 mcg) 225 mcg PO DAILY@ 0700 [facility] Last Admin: 08/17/17 06:38 Dose: 225 mcg Multivitamins/Minerals/Vitamin C (Tab-A-Vit -) 1 tab PO DAILY [facility] Oxycodone HCl (Roxicodone -) 5 mg PO Q6H PRN PRN Reason: PAIN Pantoprazole Sodium (Protonix -) 20 mg PO DAILY [facility] Polyethylene Glycol (Miralax (For Daily Use) -) 17 gm PO BID [facility] Last Admin: 08/16/17 22:44 Dose: Not Given Sevelamer Carbonate (Renvela -) 800 mg PO TIDCM [facility] Abnormal Lab Results 08/16/17 08/17/17 08/17/17 12:50 07:00 07:00 RBC 2.52 L 2.61 L Hgb 8.1 L 8.6 L Hct 25.0 L 26.0 L MCV 99.3 H 99.5 H RDW 21.6 H 21.9 H MPV 7.3 L Absolute Neuts (auto) 4.5 L Absolute Lymphs (auto) 0.9 L Absolute Monos (auto) 0.5 L Potassium 3.4 L D Anion Gap 6 L BUN 19 H D Creatinine 3.3 H D Random Glucose 60 L Calcium 7.4 L Phosphorus 2.4 L D N- alert, oriented cvs-s1s2, systolic murmur lungs-clear abd-soft,nt, nd LE-TRACE edema , heel ulcer right hip- incision site- redness with anjum- swelling + A/P Lower GIB, ANEMIA status post transtrochanteric RHR- 07/27/17 esrd AFIB Severe aortic stenosis severe LV dysfunction CAD- h/o stenting DM History of GIB Heel ULCER- MRSA - status post one unit PRBC - TOLERATING CLEARS -H/H stable -HD - TIW - Labetalol, , lasix, no a/c- DUE TO gib -ID consult and vascular consult for heel ulcer - contact precautions -ortho consult pending - Problem List - Problems (1) ESRD (end stage renal disease) on dialysis Code(s): N18.6 - END STAGE RENAL DISEASE; Z99.2 - DEPENDENCE ON RENAL DIALYSIS (2) Lower GI bleed Code(s): K92.2 - GASTROINTESTINAL HEMORRHAGE, UNSPECIFIED (3) Aortic stenosis Code(s): I35.0 - NONRHEUMATIC AORTIC (VALVE) STENOSIS (4) Atrial fibrillation Code(s): I48.91 - UNSPECIFIED ATRIAL FIBRILLATION (5) CAD (coronary artery disease) Code(s): I25.10 - ATHSCL HEART DISEASE OF [place] CORONARY ARTERY W/O ANG PCTRS (6) Congestive heart failure (CHF) Code(s): I50.9 - HEART FAILURE, UNSPECIFIED (7) Hypothyroidism Code(s): E03.9 - HYPOTHYROIDISM, UNSPECIFIED (8) Renal dialysis status Code(s): Z99.2 - DEPENDENCE ON RENAL DIALYSIS (9) Systolic and diastolic CHF w/reduced LV function, NYHA class 4 Code(s): I50.40 - UNSP COMBINED SYSTOLIC AND DIASTOLIC (CONGESTIVE) HRT FAIL
[2017-08-17] MEDS: FUROSEMIDE 40 MG TABLET (FP) PO SCH (10:09)
[2017-08-17] MEDS: MULTIVITAMINS (DAILY MVI) TABLET (FP) PO SCH (10:09)
[2017-08-17] MEDS: POLYETHYLENE GLYCOL 3350 119 GM BTL PO SCH ×2 (10:10→22:13)
[2017-08-17] MEDS: PANTOPRAZOLE 20 MG TABLET (FP) PO SCH (10:10)
[2017-08-17] MEDS: CHOLECALCIFEROL (VITAMIN D3) 1,000 UNIT TABLET (FP) PO SCH (10:10)
[2017-08-17] MEDS: CINACALCET HCL 30 MG TAB (FP) PO SCH (10:10)
[2017-08-17] MEDS: COLLAGENASE CLOSTRIDIUM HIST. 30 GRAMS TUBE TP SCH (10:11)
--- NOTE | 2017-08-17 10:50 | PN ---
Teaching Attending Note Name of Resident: Jody Craven ATTENDING PHYSICIAN STATEMENT I saw and evaluated the patient. I reviewed the resident's note and discussed the case with the resident. I agree with the resident's findings and plan as documented. SUBJECTIVE: admitted for rectal bleeding (painless) no fevers has been walking 12 steps at a time at rehab right hip surgery-07/27-redo of prior hardware chronic right heel ulcer followed by Dr Sinclair s/p hd yesterday OBJECTIVE: Vital Signs Period Temp Pulse Resp BP Sys/Willson Pulse Ox Last 24 Hr 97.3 F-97.7 F 78-95 14-23 106-134/53-75 100 cor-rrr lungs clear abd soft,nt ext right hip incision clean and dry- excematous changes along the wound in a rectangular fashion- ?contact dermatitis no drainage heel ulcer with purulent drainage, +surrounding erythema CBC, BMP 08/17/17 07:00 08/17/17 07:00 Microbiology 08/14/17 12:30 Foot - Right Heel Gram Stain - Final 08/14/17 12:30 Foot - Right Heel Wound Culture - Preliminary Presumptive Mrsa (Pbp2a Pos) Non Lactose Fermenting Gnb ASSESSMENT AND PLAN: contact isolation chronic heel wound- no signs of surrounding cellulitis would obtain, esr/crp, xray, blood cultures surgical evaluation vanco, azactam may need MRI based on the above pen allergy- rash esrd/hd Problem List - Problems (1) Diabetic foot ulcer Code(s): E11.621 - TYPE 2 DIABETES MELLITUS WITH FOOT ULCER; L97.509 - NON- PRESSURE CHRONIC ULCER OTH PRT UNSP FOOT W UNSP SEVERITY Qualifiers: Laterality: right (2) Lower GI bleed Code(s): K92.2 - GASTROINTESTINAL HEMORRHAGE, UNSPECIFIED (3) ESRD (end stage renal disease) on dialysis Code(s): N18.6 - END STAGE RENAL DISEASE; Z99.2 - DEPENDENCE ON RENAL DIALYSIS (4) Penicillin allergy Code(s): Z88.0 - ALLERGY STATUS TO PENICILLIN
[2017-08-17] MEDS: AZTREONAM 0.5 GM in DEXTROSE 5%-WATER - 100 ML IVPB SCH ×2 (12:48→23:45)
[2017-08-17] MEDS ORDERED: VANCOMYCIN 1,250 MG in DEXTROSE 5%-WATER - 250 ML IVPB ONE (13:00)
[2017-08-17] MEDS ORDERED: CLINDAMYCIN 300 MG PREMIX IVPB 300 MG/50 ML BAG IVPB SCH (15:30)
--- NOTE | 2017-08-17 16:25 | PN ---
Progress Note (short form) - Note Progress Note: Renal follow up for ESRD on HD/Anemia Pt seen and examined at the bedside has hip discomfort depending on her position no fevers, chills, N/v/D no sob Vital Signs Temperature 97.5 F L 08/17/17 14:00 Pulse Rate 89 08/17/17 14:00 Respiratory Rate 20 08/17/17 14:00 Blood Pressure 112/53 08/17/17 06:00 O2 Sat by Pulse Oximetry (%) 100 08/16/17 21:42 Intake & Output 08/14/17 08/15/17 08/16/17 08/17/17 23:59 23:59 23:59 23:59 Intake Total 748 120 1361 200 Output Total 0 0 Balance 794 534 9880 200 Weight 86.183 kg 89.811 kg 88.723 kg 88.632 kg NAD awake and alert No LE edema CBC, BMP 08/17/17 07:00 08/17/17 07:00 Current Medications Acetaminophen (Tylenol -) 650 mg PO Q6H PRN PRN Reason: FEVER OR PAIN Cholecalciferol (Vitamin D3 -) 2,000 unit PO DAILY [facility] Last Admin: 08/17/17 10:10 Dose: 2,000 unit Cinacalcet (Sensipar -) 30 mg PO MoWeFr@1000 [facility] Last Admin: 08/17/17 10:10 Dose: 30 mg Collagenase (Santyl -) 1 applic TP DAILY [facility] Last Admin: 08/17/17 10:11 Dose: 1 applic Epoetin Cesar (Epogen -) 20,000 units IVPUSH ONCE ONE Stop: 08/18/17 06:01 Furosemide (Lasix -) 80 mg PO DAILY [facility] Last Admin: 08/17/17 10:09 Dose: 80 mg Aztreonam 0.5 gm/ Dextrose 100 mls @ 100 mls/hr IVPB BID [facility] PRN Reason: Protocol Last Admin: 08/17/17 12:48 Dose: 100 mls/hr Clindamycin Phosphate (Cleocin 300 Mg Premix Ivpb) 300 mg in 50 mls @ 100 mls/ hr IVPB Q6H-IV [facility] Vancomycin HCl 1,000 mg/ (Dextrose) 250 mls @ 250 mls/hr IVPB ONCE ONE PRN Reason: Protocol Stop: 12/23/17 06:59 Labetalol HCl (Normodyne -) 300 mg PO BID [facility] Last Admin: 08/17/17 10:08 Dose: 300 mg Levothyroxine Sodium 25 mcg/ (Levothyroxine Sodium 200 mcg) 225 mcg PO DAILY@ 0700 [facility] Last Admin: 08/17/17 06:38 Dose: 225 mcg Multivitamins/Minerals/Vitamin C (Tab-A-Vit -) 1 tab PO DAILY [facility] Last Admin: 08/17/17 10:09 Dose: 1 tab Oxycodone HCl (Roxicodone -) 5 mg PO Q6H PRN PRN Reason: PAIN Pantoprazole Sodium (Protonix -) 20 mg PO DAILY [facility] Last Admin: 08/17/17 10:10 Dose: 20 mg Polyethylene Glycol (Miralax (For Daily Use) -) 17 gm PO BID [facility] Last Admin: 08/17/17 10:10 Dose: Not Given Sevelamer Carbonate (Renvela -) 800 mg PO TIDCM [facility] Last Admin: 08/17/17 12:48 Dose: 800 mg 82 year old woman with PMhx of ESRD no HD x 7 years, hypertension, DM, s/p recent hip replacement presented from HD with bright red blood per rectum. #Acute GI Bleed with acute on chronic anemia no further active bleeding at this time Hgb stable no acute indication for transfusion #ESRD on HD for dialysiss tomorrow #s/p recent hip replacement supportive care pain control orthopedic follow up #Hypertension BP stable off meds Thank you Kenny Yeboah DO
--- NOTE | 2017-08-17 17:06 | PN ---
Progress Note (short form) - Note Progress Note: patient seen and examined with TRANSITIONAL NURSE [place] earlier this morning. case was discussed. Documentation reviewed. Patient comfortable. No further bleeding I also discussed with ID. Vital Signs Temp 97.5 F L 08/17/17 14:00 Pulse 89 08/17/17 14:00 Resp 20 08/17/17 14:00 BP 112/53 08/17/17 06:00 Pulse Ox 100 08/16/17 21:42 Intake & Output 08/16/17 08/17/17 08/17/17 23:59 11:59 23:59 Intake Total 1100 200 Output Total 0 Balance 1100 200 Weight 195 lb 6.4 oz Intake: Oral 1100 200 Output: Urine 0 Void 0 Other: Voiding Method Diaper Bedpan # Unmeasured Voids Void 0 Bowel Movement Yes: small No No # Bowel Movements 0 Weight Measurement Method Built in Bedscale Active Medications Acetaminophen (Tylenol -) 650 mg PO Q6H PRN PRN Reason: FEVER OR PAIN Cholecalciferol (Vitamin D3 -) 2,000 unit PO DAILY [facility] Last Admin: 08/17/17 10:10 Dose: 2,000 unit Cinacalcet (Sensipar -) 30 mg PO MoWeFr@1000 [facility] Last Admin: 08/17/17 10:10 Dose: 30 mg Collagenase (Santyl -) 1 applic TP DAILY [facility] Last Admin: 08/17/17 10:11 Dose: 1 applic Epoetin Cesar (Epogen -) 20,000 units IVPUSH ONCE ONE Stop: 08/18/17 06:01 Furosemide (Lasix -) 80 mg PO DAILY [facility] Last Admin: 08/17/17 10:09 Dose: 80 mg Aztreonam 0.5 gm/ Dextrose 100 mls @ 100 mls/hr IVPB BID [facility] PRN Reason: Protocol Last Admin: 08/17/17 12:48 Dose: 100 mls/hr Clindamycin Phosphate (Cleocin 300 Mg Premix Ivpb) 300 mg in 50 mls @ 100 mls/ hr IVPB Q6H-IV [facility] Vancomycin HCl 1,000 mg/ (Dextrose) 250 mls @ 250 mls/hr IVPB ONCE ONE PRN Reason: Protocol Stop: 08/18/17 06:59 Labetalol HCl (Normodyne -) 300 mg PO BID [facility] Last Admin: 08/17/17 10:08 Dose: 300 mg Levothyroxine Sodium 25 mcg/ (Levothyroxine Sodium 200 mcg) 225 mcg PO DAILY@ 0700 [facility] Last Admin: 08/17/17 06:38 Dose: 225 mcg Multivitamins/Minerals/Vitamin C (Tab-A-Vit -) 1 tab PO DAILY [facility] Last Admin: 08/17/17 10:09 Dose: 1 tab Oxycodone HCl (Roxicodone -) 5 mg PO Q6H PRN PRN Reason: PAIN Pantoprazole Sodium (Protonix -) 20 mg PO DAILY [facility] Last Admin: 08/17/17 10:10 Dose: 20 mg Polyethylene Glycol (Miralax (For Daily Use) -) 17 gm PO BID [facility] Last Admin: 08/17/17 10:10 Dose: Not Given Sevelamer Carbonate (Renvela -) 800 mg PO TIDCM [facility] Last Admin: 08/17/17 12:48 Dose: 800 mg CBC, BMP 08/17/17 07:00 08/17/17 07:00 Microbiology 08/14/17 12:30 Gram Stain - Final Foot - Right Heel Wound Culture - Preliminary Presumptive Mrsa (Pbp2a Pos) Escherichia Coli Group D Strep Or Entero Coccus physical N- alert, oriented cvs-s1s2, systolic murmur lungs-clear abd-soft,nt, nd LE-TRACE edema , heel ulcer right hip- incision site- redness with anjum- swelling + A/P clinically stable continue present care Wound care consult pending GI to follow Advance diet slowly--per GI recommendation orthopedics to follow. Will follow. Problem List - Problems (1) Pneumonia Code(s): J18.9 - PNEUMONIA, UNSPECIFIED ORGANISM (2) ESRD (end stage renal disease) on dialysis Code(s): N18.6 - END STAGE RENAL DISEASE; Z99.2 - DEPENDENCE ON RENAL DIALYSIS (3) Lower GI bleed Code(s): K92.2 - GASTROINTESTINAL HEMORRHAGE, UNSPECIFIED (4) Aortic stenosis Code(s): I35.0 - NONRHEUMATIC AORTIC (VALVE) STENOSIS (5) Atrial fibrillation Code(s): I48.91 - UNSPECIFIED ATRIAL FIBRILLATION (6) CAD (coronary artery disease) Code(s): I25.10 - ATHSCL HEART DISEASE OF [place] CORONARY ARTERY W/O ANG PCTRS (7) Diabetes Code(s): E11.9 - TYPE 2 DIABETES MELLITUS WITHOUT COMPLICATIONS (8) Hip pain, right Code(s): M25.551 - PAIN IN RIGHT HIP (9) S/P hip replacement Code(s): Z96.649 - PRESENCE OF UNSPECIFIED ARTIFICIAL HIP JOINT
[2017-08-17] MEDS: CLINDAMYCIN HCL 150 MG CAPSULE (FP) PO SCH (17:23)
--- NOTE | 2017-08-17 18:15 | PN ---
Progress Note (short form) - Note Progress Note: Vascular Surgery Pt seen and examined. Well known to wound care clinic Right heel ulcer. Some slough Heel pads. Santyl to area daily. Hugo Sinclair DO
[2017-08-17] MEDS: oxyCODONE HCL 5 MG TABLET PO PRN (18:54)
--- NOTE | 2017-08-17 22:45 | PN ---
Progress Note (short form) - Note Progress Note: 82F s/p removal of failed ORIF R hip hardware and conversion to SONIA. Pt. re-admitted d/t lower GI bleed. Pain well controlled. No acute events overnight. Pt. denies overnight history of chest pain/shortness of breath/nausea/vomiting/ chills/sweat. Labs & vitals reviewed. PE: AAO x 3, NAD. R Hip: Incision C/D/I. (+) [place]-incisional erythema and induration in the distribution of the original dressing. No active drainage. NV assessment: at baseline. A/P: 82F s/p removal of failed ORIF R hip hardware and conversion to SONIA. -Pain control. -DVT PPx. (mechincal). -Incentive spirometry/aggressive pulmonary toilet. -PT/OT/Rehab, OOB. -WBAT RLE. -Care per primary medical team; OK to perform lower endoscopy if need be. -Will follow.
[2017-08-18] MEDS: CLINDAMYCIN HCL 150 MG CAPSULE (FP) PO SCH ×5 (00:26→23:05)
[2017-08-18] MEDS ORDERED: LEVOTHYROXINE NA 100 MCG TABLET (FP) ONE (05:53)
[2017-08-18] MEDS ORDERED: LEVOTHYROXINE NA 25 MCG TABLET (FP) ONE (05:53)
[2017-08-18] MEDS: LEVOTHYROXINE 25 MCG, LEVOTHYROXINE 200 MCG PO SCH (06:37)
[2017-08-18] MEDS: SEVELAMER CARBONATE 800 MG TAB (FP) PO SCH ×3 (07:49→17:20)
[2017-08-18 08:28] LABS: HEMATOCRIT 24.2 % (32.4-45.2); HEMOGLOBIN 7.7 GM/dL (10.7-15.3); MCHC 31.9 g/dl (32.0-36.0); MEAN CELL VOLUME 100.3 fl (80-96); MEAN PLT VOLUME 6.9 fl (7.5-11.1); PLATELET COUNT 155 K/MM3 (134-434); RBC 2.41 M/mm3 (3.60-5.2); RDW 21.6 % (11.6-15.6); WHITE BLOOD COUNT 5.8 K/mm3 (4.0-10.0)
[2017-08-18 09:01] LABS: ANION GAP 9 (8-16); BLOOD UREA NITROGEN 24 mg/dL (7-18); CALCIUM 7.1 mg/dL (8.5-10.1); CHLORIDE 97 mmol/L (98-107); CO2 26 mmol/L (21-32); CREATININE 4.1 mg/dL (0.55-1.02); GLUCOSE,RANDOM 94 mg/dL (74-106); PHOSPHOROUS 2.6 mg/dL (2.5-4.9); POTASSIUM 3.6 mmol/L (3.5-5.1); SODIUM 132 mmol/L (136-145)
[2017-08-18] MEDS ORDERED: EPOETIN ALFA 20,000 UNIT/1 ML VIAL IVPUSH ONE (10:00)
[2017-08-18] MEDS ORDERED: VANCOMYCIN 1,000 MG in DEXTROSE 5%-WATER - 250 ML IVPB ONE (10:00)
[2017-08-18] MEDS: POLYETHYLENE GLYCOL 3350 119 GM BTL PO SCH ×2 (12:17→21:40)
[2017-08-18] MEDS ORDERED: PT OWN MED DRAWER 7, Y5N ONE ×2 (12:26→21:35)
[2017-08-18] MEDS: LABETALOL HCL 100 MG TABLET (FP) PO SCH ×2 (12:34→21:37)
[2017-08-18] MEDS: AZTREONAM 0.5 GM in DEXTROSE 5%-WATER - 100 ML IVPB SCH ×2 (12:35→21:38)
[2017-08-18] MEDS: MULTIVITAMINS (DAILY MVI) TABLET (FP) PO SCH (12:35)
[2017-08-18] MEDS: PANTOPRAZOLE 20 MG TABLET (FP) PO SCH (12:35)
[2017-08-18] MEDS: CHOLECALCIFEROL (VITAMIN D3) 1,000 UNIT TABLET (FP) PO SCH (12:35)
[2017-08-18] MEDS: FUROSEMIDE 40 MG TABLET (FP) PO SCH (12:35)
[2017-08-18] MEDS: oxyCODONE HCL 5 MG TABLET PO PRN ×2 (13:39→22:55)
--- NOTE | 2017-08-18 13:39 | PN ---
Progress Note (short form) - Note Progress Note: pt seen/ examined comfortable all f/u noted no complains wants to eat- on liquid diet denies pain. no further bleeding got 2 units of prbcs with dialysis today. Vital Signs Temp 98.3 F 08/18/17 12:44 Pulse 93 H 08/18/17 12:44 Resp 20 08/18/17 12:44 BP 124/83 08/18/17 12:44 Pulse Ox 100 08/16/17 21:42 Intake & Output 08/17/17 08/18/17 08/18/17 23:59 11:59 23:59 Intake Total 400 Output Total 0 Balance 400 Weight 195 lb 5 oz Intake: Oral 400 Output: Urine 0 Void 0 Other: Voiding Method Bedpan # Unmeasured Voids Void 0 Bowel Movement No # Bowel Movements 0 Weight Measurement Method Built in Bedscale Active Medications Acetaminophen (Tylenol -) 650 mg PO Q6H PRN PRN Reason: FEVER OR PAIN Cholecalciferol (Vitamin D3 -) 2,000 unit PO DAILY [facility] Last Admin: 08/18/17 12:35 Dose: 2,000 unit Cinacalcet (Sensipar -) 30 mg PO MoWeFr@1000 [facility] Last Admin: 08/17/17 10:10 Dose: 30 mg Clindamycin HCl (Cleocin -) 300 mg PO Q6HPO [facility] Last Admin: 08/18/17 12:35 Dose: 300 mg Collagenase (Santyl -) 1 applic TP DAILY [facility] Last Admin: 08/17/17 10:11 Dose: 1 applic Furosemide (Lasix -) 80 mg PO DAILY [facility] Last Admin: 08/18/17 12:35 Dose: 80 mg Aztreonam 0.5 gm/ Dextrose 100 mls @ 100 mls/hr IVPB BID [facility] PRN Reason: Protocol Last Admin: 08/18/17 12:35 Dose: 100 mls/hr Labetalol HCl (Normodyne -) 300 mg PO BID [facility] Last Admin: 08/18/17 12:34 Dose: 300 mg Levothyroxine Sodium 25 mcg/ (Levothyroxine Sodium 200 mcg) 225 mcg PO DAILY@ 0700 [facility] Last Admin: 08/18/17 06:37 Dose: 225 mcg Multivitamins/Minerals/Vitamin C (Tab-A-Vit -) 1 tab PO DAILY [facility] Last Admin: 08/18/17 12:35 Dose: 1 tab Oxycodone HCl (Roxicodone -) 5 mg PO Q6H PRN PRN Reason: PAIN Last Admin: 08/18/17 13:39 Dose: 5 mg Pantoprazole Sodium (Protonix -) 20 mg PO DAILY [facility] Last Admin: 08/18/17 12:35 Dose: 20 mg Polyethylene Glycol (Miralax (For Daily Use) -) 17 gm PO BID [facility] Last Admin: 08/18/17 12:17 Dose: Not Given Sevelamer Carbonate (Renvela -) 800 mg PO TIDCM [facility] Last Admin: 08/18/17 12:36 Dose: 800 mg CBC, BMP 08/18/17 08:00 08/18/17 08:00 cxr-- left base infiltrate x ray - foot-- noted physical N- alert, oriented cvs-s1s2, systolic murmur lungs-clear abd-soft,nt, nd LE-TRACE edema , heel ulcer right hip- incision site- redness with anjum- swelling + A/P clinically stable continue present care Advance diet continue other meds will follow. Problem List - Problems (1) Pneumonia Code(s): J18.9 - PNEUMONIA, UNSPECIFIED ORGANISM (2) ESRD (end stage renal disease) on dialysis Code(s): N18.6 - END STAGE RENAL DISEASE; Z99.2 - DEPENDENCE ON RENAL DIALYSIS (3) Lower GI bleed Code(s): K92.2 - GASTROINTESTINAL HEMORRHAGE, UNSPECIFIED (4) Aortic stenosis Code(s): I35.0 - NONRHEUMATIC AORTIC (VALVE) STENOSIS (5) Atrial fibrillation Code(s): I48.91 - UNSPECIFIED ATRIAL FIBRILLATION (6) CAD (coronary artery disease) Code(s): I25.10 - ATHSCL HEART DISEASE OF [place] CORONARY ARTERY W/O ANG PCTRS (7) Diabetes Code(s): E11.9 - TYPE 2 DIABETES MELLITUS WITHOUT COMPLICATIONS (8) Hip pain, right Code(s): M25.551 - PAIN IN RIGHT HIP (9) S/P hip replacement Code(s): Z96.649 - PRESENCE OF UNSPECIFIED ARTIFICIAL HIP JOINT
[2017-08-18] MEDS: COLLAGENASE CLOSTRIDIUM HIST. 30 GRAMS TUBE TP SCH (17:20)
--- NOTE | 2017-08-18 19:03 | PN ---
Progress Note (short form) - Note Progress Note: esrd s/p hd Current Medications Acetaminophen (Tylenol -) 650 mg PO Q6H PRN PRN Reason: FEVER OR PAIN Cholecalciferol (Vitamin D3 -) 2,000 unit PO DAILY [facility] Last Admin: 08/18/17 12:35 Dose: 2,000 unit Cinacalcet (Sensipar -) 30 mg PO MoWeFr@1000 [facility] Last Admin: 08/17/17 10:10 Dose: 30 mg Clindamycin HCl (Cleocin -) 300 mg PO Q6HPO [facility] Last Admin: 08/18/17 17:20 Dose: 300 mg Collagenase (Santyl -) 1 applic TP DAILY [facility] Last Admin: 08/18/17 17:20 Dose: 1 applic Furosemide (Lasix -) 80 mg PO DAILY [facility] Last Admin: 08/18/17 12:35 Dose: 80 mg Aztreonam 0.5 gm/ Dextrose 100 mls @ 100 mls/hr IVPB BID [facility] PRN Reason: Protocol Last Admin: 08/18/17 12:35 Dose: 100 mls/hr Labetalol HCl (Normodyne -) 300 mg PO BID [facility] Last Admin: 08/18/17 12:34 Dose: 300 mg Levothyroxine Sodium 25 mcg/ (Levothyroxine Sodium 200 mcg) 225 mcg PO DAILY@ 0700 [facility] Last Admin: 08/18/17 06:37 Dose: 225 mcg Multivitamins/Minerals/Vitamin C (Tab-A-Vit -) 1 tab PO DAILY [facility] Last Admin: 08/18/17 12:35 Dose: 1 tab Oxycodone HCl (Roxicodone -) 5 mg PO Q6H PRN PRN Reason: PAIN Last Admin: 08/18/17 13:39 Dose: 5 mg Pantoprazole Sodium (Protonix -) 20 mg PO DAILY [facility] Last Admin: 08/18/17 12:35 Dose: 20 mg Polyethylene Glycol (Miralax (For Daily Use) -) 17 gm PO BID [facility] Last Admin: 08/18/17 12:17 Dose: Not Given Sevelamer Carbonate (Renvela -) 800 mg PO TIDCM [facility] Last Admin: 08/18/17 17:20 Dose: 800 mg Last Vital Signs Temp Pulse Resp BP Pulse Ox 98.2 F 87 16 126/62 95 08/18/17 15:10 08/18/17 15:10 08/18/17 15:10 08/18/17 15:10 08/18/17 14:00 CBC, BMP 08/18/17 08:00 08/18/17 08:00 next hd on sunday
--- NOTE | 2017-08-18 21:03 | PN ---
Progress Note (short form) - Note Progress Note: Right hip pain well controlled. No acute events overnight. Pt. denies overnight history of chest pain/shortness of breath/nausea/vomiting/ chills/sweats. Labs & vitals reviewed. PE: AAO x 3, NAD. R Hip: Incision C/D/I. (+) [place]-incisional erythema and induration remains in the exact distribution of the original dressing. No active drainage. NV assessment: at baseline. A/P: 82F s/p removal of failed ORIF R hip hardware and conversion to SONIA. -Pain control. -Mechanical DVT PPx.; Chemical DVT PPx. recommended for 6 weeks total post-op but given recent RBC & platelet derangements, chemical DVT at the discretion of the primary medical team. -Incentive spirometry/aggressive pulmonary toilet. -PT/OT/Rehab, OOB. -WBAT RLE. -Care per primary medical team; OK to perform lower endoscopy if need be. -Will follow.
[2017-08-19] MEDS ORDERED: LEVOTHYROXINE NA 25 MCG TABLET (FP) ONE (05:16)
[2017-08-19] MEDS ORDERED: LEVOTHYROXINE NA 100 MCG TABLET (FP) ONE (05:16)
[2017-08-19] MEDS: CLINDAMYCIN HCL 150 MG CAPSULE (FP) PO SCH ×4 (06:03→17:16)
[2017-08-19] MEDS: LEVOTHYROXINE 25 MCG, LEVOTHYROXINE 200 MCG PO SCH (06:03)
[2017-08-19] MEDS: SEVELAMER CARBONATE 800 MG TAB (FP) PO SCH ×3 (08:17→17:16)
[2017-08-19] MEDS ORDERED: PT OWN MED DRAWER 7, Y5N ONE ×4 (10:56→22:15)
[2017-08-19] MEDS: POLYETHYLENE GLYCOL 3350 119 GM BTL PO SCH ×2 (10:57→22:27)
[2017-08-19] MEDS: AZTREONAM 0.5 GM in DEXTROSE 5%-WATER - 100 ML IVPB SCH ×2 (10:57→22:20)
[2017-08-19] MEDS: COLLAGENASE CLOSTRIDIUM HIST. 30 GRAMS TUBE TP SCH (10:58)
[2017-08-19] MEDS: CHOLECALCIFEROL (VITAMIN D3) 1,000 UNIT TABLET (FP) PO SCH (10:58)
[2017-08-19] MEDS: FUROSEMIDE 40 MG TABLET (FP) PO SCH (10:58)
[2017-08-19] MEDS: LABETALOL HCL 100 MG TABLET (FP) PO SCH ×2 (10:58→22:20)
[2017-08-19] MEDS: PANTOPRAZOLE 20 MG TABLET (FP) PO SCH (10:58)
[2017-08-19] MEDS: MULTIVITAMINS (DAILY MVI) TABLET (FP) PO SCH (10:58)
[2017-08-19] MEDS: oxyCODONE HCL 5 MG TABLET PO PRN ×2 (11:24→17:56)
--- NOTE | 2017-08-19 12:55 | PN ---
Progress Note, Physician History of Present Illness: comfortable no new issues no further bleeding pain ok. tolerating diet c/c- difficulty taking cleocin. - Current Medication List Current Medications: Active Medications Acetaminophen (Tylenol -) 650 mg PO Q6H PRN PRN Reason: FEVER OR PAIN Cholecalciferol (Vitamin D3 -) 2,000 unit PO DAILY [facility] Last Admin: 08/19/17 10:58 Dose: 2,000 unit Cinacalcet (Sensipar -) 30 mg PO MoWeFr@1000 [facility] Last Admin: 08/17/17 10:10 Dose: 30 mg Clindamycin HCl (Cleocin -) 300 mg PO Q6HPO [facility] Last Admin: 08/19/17 12:14 Dose: Not Given Collagenase (Santyl -) 1 applic TP DAILY [facility] Last Admin: 08/19/17 10:58 Dose: 1 applic Furosemide (Lasix -) 80 mg PO DAILY [facility] Last Admin: 08/19/17 10:58 Dose: 80 mg Aztreonam 0.5 gm/ Dextrose 100 mls @ 100 mls/hr IVPB BID [facility] PRN Reason: Protocol Last Admin: 08/19/17 10:57 Dose: 100 mls/hr Labetalol HCl (Normodyne -) 300 mg PO BID [facility] Last Admin: 08/19/17 10:58 Dose: 300 mg Levothyroxine Sodium 25 mcg/ (Levothyroxine Sodium 200 mcg) 225 mcg PO DAILY@ 0700 [facility] Last Admin: 08/19/17 06:03 Dose: 225 mcg Multivitamins/Minerals/Vitamin C (Tab-A-Vit -) 1 tab PO DAILY [facility] Last Admin: 08/19/17 10:58 Dose: 1 tab Oxycodone HCl (Roxicodone -) 5 mg PO Q6H PRN PRN Reason: PAIN Last Admin: 08/19/17 11:24 Dose: 5 mg Pantoprazole Sodium (Protonix -) 20 mg PO DAILY [facility] Last Admin: 08/19/17 10:58 Dose: 20 mg Polyethylene Glycol (Miralax (For Daily Use) -) 17 gm PO BID [facility] Last Admin: 08/19/17 10:57 Dose: 17 gm Sevelamer Carbonate (Renvela -) 800 mg PO TIDCM [facility] Last Admin: 08/19/17 12:11 Dose: 800 mg - Objective Vital Signs: Vital Signs Temperature 98.7 F 08/19/17 08:00 Pulse Rate 92 H 08/19/17 08:00 Respiratory Rate 18 08/19/17 08:00 Blood Pressure 118/65 08/19/17 08:00 O2 Sat by Pulse Oximetry (%) 96 08/19/17 09:00 Constitutional: Yes: No Distress, Calm Eyes: Yes: Conjunctiva Clear Neck: Yes: Supple Cardiovascular: Yes: Pulse Irregular Respiratory: Yes: Diminished (at bases) Gastrointestinal: Yes: Normal Bowel Sounds, Soft Edema: LLE: Trace, RLE: Trace Neurological: Yes: Alert Labs: CBC, BMP 08/18/17 08:00 08/18/17 08:00 INR, PTT INR 1.24 (0.82-1.09) H 08/14/17 12:42 Problem List - Problems (1) Pneumonia Code(s): J18.9 - PNEUMONIA, UNSPECIFIED ORGANISM (2) ESRD (end stage renal disease) on dialysis Code(s): N18.6 - END STAGE RENAL DISEASE; Z99.2 - DEPENDENCE ON RENAL DIALYSIS (3) Lower GI bleed Code(s): K92.2 - GASTROINTESTINAL HEMORRHAGE, UNSPECIFIED (4) Aortic stenosis Code(s): I35.0 - NONRHEUMATIC AORTIC (VALVE) STENOSIS (5) Atrial fibrillation Code(s): I48.91 - UNSPECIFIED ATRIAL FIBRILLATION (6) CAD (coronary artery disease) Code(s): I25.10 - ATHSCL HEART DISEASE OF [place] CORONARY ARTERY W/O ANG PCTRS (7) Diabetes Code(s): E11.9 - TYPE 2 DIABETES MELLITUS WITHOUT COMPLICATIONS (8) Hip pain, right Code(s): M25.551 - PAIN IN RIGHT HIP (9) S/P hip replacement Code(s): Z96.649 - PRESENCE OF UNSPECIFIED ARTIFICIAL HIP JOINT Assessment/Plan stable monitor h/h continue present care gi to follow all f/u noted discussed with nursing staff also. will follow.
--- NOTE | 2017-08-19 20:17 | PN ---
Progress Note (short form) - Note Progress Note: esrd s/p hd Current Medications Acetaminophen (Tylenol -) 650 mg PO Q6H PRN PRN Reason: FEVER OR PAIN Cholecalciferol (Vitamin D3 -) 2,000 unit PO DAILY [facility] Last Admin: 08/19/17 10:58 Dose: 2,000 unit Cinacalcet (Sensipar -) 30 mg PO MoWeFr@1000 [facility] Last Admin: 08/17/17 10:10 Dose: 30 mg Clindamycin HCl (Cleocin -) 300 mg PO Q6HPO [facility] Last Admin: 08/19/17 17:16 Dose: Not Given Collagenase (Santyl -) 1 applic TP DAILY [facility] Last Admin: 08/19/17 10:58 Dose: 1 applic Furosemide (Lasix -) 80 mg PO DAILY [facility] Last Admin: 08/19/17 10:58 Dose: 80 mg Aztreonam 0.5 gm/ Dextrose 100 mls @ 100 mls/hr IVPB BID [facility] PRN Reason: Protocol Last Admin: 08/19/17 10:57 Dose: 100 mls/hr Labetalol HCl (Normodyne -) 300 mg PO BID [facility] Last Admin: 08/19/17 10:58 Dose: 300 mg Levothyroxine Sodium 25 mcg/ (Levothyroxine Sodium 200 mcg) 225 mcg PO DAILY@ 0700 [facility] Last Admin: 08/19/17 06:03 Dose: 225 mcg Multivitamins/Minerals/Vitamin C (Tab-A-Vit -) 1 tab PO DAILY [facility] Last Admin: 08/19/17 10:58 Dose: 1 tab Oxycodone HCl (Roxicodone -) 5 mg PO Q6H PRN PRN Reason: PAIN Last Admin: 08/19/17 17:56 Dose: 5 mg Pantoprazole Sodium (Protonix -) 20 mg PO DAILY [facility] Last Admin: 08/19/17 10:58 Dose: 20 mg Polyethylene Glycol (Miralax (For Daily Use) -) 17 gm PO BID [facility] Last Admin: 08/19/17 10:57 Dose: 17 gm Sevelamer Carbonate (Renvela -) 800 mg PO TIDCM [facility] Last Admin: 08/19/17 17:16 Dose: 800 mg Last Vital Signs Temp Pulse Resp BP Pulse Ox 98 F 93 H 19 125/57 96 08/19/17 20:08 08/19/17 20:08 08/19/17 20:08 08/19/17 20:08 08/19/17 09:00 alert in nad c/o pain pain control is adequate lungs clear heart reg rate abd soft ext no edema CBC, BMP 08/18/17 08:00 08/18/17 08:00 IMP- esrd no fluid overload next hd on sunday
[2017-08-20] MEDS: CLINDAMYCIN HCL 150 MG CAPSULE (FP) PO SCH ×4 (00:11→17:25)
[2017-08-20] MEDS ORDERED: LEVOTHYROXINE NA 100 MCG TABLET (FP) ONE (05:31)
[2017-08-20] MEDS ORDERED: LEVOTHYROXINE NA 25 MCG TABLET (FP) ONE (05:31)
[2017-08-20] MEDS: oxyCODONE HCL 5 MG TABLET PO PRN ×3 (05:43→22:10)
[2017-08-20] MEDS: LEVOTHYROXINE 25 MCG, LEVOTHYROXINE 200 MCG PO SCH (06:04)
[2017-08-20] MEDS: SEVELAMER CARBONATE 800 MG TAB (FP) PO SCH ×3 (08:16→17:25)
[2017-08-20] MEDS ORDERED: PT OWN MED DRAWER 7, Y5N ONE (11:07)
[2017-08-20] MEDS: LABETALOL HCL 100 MG TABLET (FP) PO SCH ×2 (11:23→22:09)
[2017-08-20] MEDS: CHOLECALCIFEROL (VITAMIN D3) 1,000 UNIT TABLET (FP) PO SCH (11:23)
[2017-08-20] MEDS: FUROSEMIDE 40 MG TABLET (FP) PO SCH (11:23)
[2017-08-20] MEDS: MULTIVITAMINS (DAILY MVI) TABLET (FP) PO SCH (11:24)
[2017-08-20] MEDS: PANTOPRAZOLE 20 MG TABLET (FP) PO SCH (11:24)
[2017-08-20] MEDS: POLYETHYLENE GLYCOL 3350 119 GM BTL PO SCH ×2 (11:24→22:10)
[2017-08-20] MEDS: CINACALCET HCL 30 MG TAB (FP) PO SCH (11:25)
--- NOTE | 2017-08-20 11:31 | PN ---
Progress Note (short form) - Note Progress Note: pt seen/ examined. c/c - pin in hip area otherwise ok afebrile no further bleeding Vital Signs Temp 98.0 F 08/20/17 06:00 Pulse 94 H 08/20/17 06:00 Resp 20 08/20/17 06:00 BP 132/66 08/20/17 06:00 Pulse Ox 96 08/19/17 21:00 Intake & Output 08/19/17 08/19/17 08/20/17 11:59 23:59 11:59 Intake Total 400 100 Balance 400 100 Weight 194 lb 9 oz 196 lb 11.2 oz Intake: IVPB 100 100 Oral 300 Other: Voiding Method Incontinent Incontinent # Unmeasured Voids Void 1 Bowel Movement No Weight Measurement Method Built in Bedscale Built in Bedscale Active Medications Acetaminophen (Tylenol -) 650 mg PO Q6H PRN PRN Reason: FEVER OR PAIN Cholecalciferol (Vitamin D3 -) 2,000 unit PO DAILY [facility] Last Admin: 08/19/17 10:58 Dose: 2,000 unit Cinacalcet (Sensipar -) 30 mg PO MoWeFr@1000 [facility] Last Admin: 08/17/17 10:10 Dose: 30 mg Clindamycin HCl (Cleocin -) 300 mg PO Q6HPO [facility] Last Admin: 08/20/17 06:02 Dose: Not Given Collagenase (Santyl -) 1 applic TP DAILY [facility] Last Admin: 08/19/17 10:58 Dose: 1 applic Furosemide (Lasix -) 80 mg PO DAILY [facility] Last Admin: 08/19/17 10:58 Dose: 80 mg Aztreonam 0.5 gm/ Dextrose 100 mls @ 100 mls/hr IVPB BID [facility] PRN Reason: Protocol Last Admin: 08/19/17 22:20 Dose: 100 mls/hr Labetalol HCl (Normodyne -) 300 mg PO BID [facility] Last Admin: 08/19/17 22:20 Dose: 300 mg Levothyroxine Sodium 25 mcg/ (Levothyroxine Sodium 200 mcg) 225 mcg PO DAILY@ 0700 [facility] Last Admin: 08/20/17 06:04 Dose: 225 mcg Multivitamins/Minerals/Vitamin C (Tab-A-Vit -) 1 tab PO DAILY [facility] Last Admin: 08/19/17 10:58 Dose: 1 tab Oxycodone HCl (Roxicodone -) 5 mg PO Q6H PRN PRN Reason: PAIN Last Admin: 08/20/17 05:43 Dose: 5 mg Pantoprazole Sodium (Protonix -) 20 mg PO DAILY [facility] Last Admin: 08/19/17 10:58 Dose: 20 mg Polyethylene Glycol (Miralax (For Daily Use) -) 17 gm PO BID [facility] Last Admin: 08/19/17 22:27 Dose: Not Given Sevelamer Carbonate (Renvela -) 800 mg PO TIDCM [facility] Last Admin: 08/20/17 08:16 Dose: 800 mg CBC, BMP 08/18/17 08:00 08/18/17 08:00 cxr-- left base infiltrate x ray - foot-- noted physical N- alert, awake cvs-s1s2, systolic murmur lungs-clear abd-soft,nt, nd LE-TRACE edema , heel ulcer right hip- surgical site clean A/P clinically stable continue present care pain control continue other meds monitor h/h physical therapy. will follow. Problem List - Problems (1) Pneumonia Code(s): J18.9 - PNEUMONIA, UNSPECIFIED ORGANISM (2) ESRD (end stage renal disease) on dialysis Code(s): N18.6 - END STAGE RENAL DISEASE; Z99.2 - DEPENDENCE ON RENAL DIALYSIS (3) Lower GI bleed Code(s): K92.2 - GASTROINTESTINAL HEMORRHAGE, UNSPECIFIED (4) Aortic stenosis Code(s): I35.0 - NONRHEUMATIC AORTIC (VALVE) STENOSIS (5) Atrial fibrillation Code(s): I48.91 - UNSPECIFIED ATRIAL FIBRILLATION (6) CAD (coronary artery disease) Code(s): I25.10 - ATHSCL HEART DISEASE OF [place] CORONARY ARTERY W/O ANG PCTRS (7) Diabetes Code(s): E11.9 - TYPE 2 DIABETES MELLITUS WITHOUT COMPLICATIONS (8) Hip pain, right Code(s): M25.551 - PAIN IN RIGHT HIP (9) S/P hip replacement Code(s): Z96.649 - PRESENCE OF UNSPECIFIED ARTIFICIAL HIP JOINT
[2017-08-20] MEDS: AZTREONAM 0.5 GM in DEXTROSE 5%-WATER - 100 ML IVPB SCH ×2 (11:36→22:10)
[2017-08-20] MEDS: COLLAGENASE CLOSTRIDIUM HIST. 30 GRAMS TUBE TP SCH (15:01)
[2017-08-20] MEDS ORDERED: VANCOMYCIN 1,000 MG in DEXTROSE 5%-WATER - 250 ML IVPB ONE (18:00)
--- NOTE | 2017-08-20 19:02 | PN ---
Progress Note (short form) - Note Progress Note: esrd s/p hd Current Medications Acetaminophen (Tylenol -) 650 mg PO Q6H PRN PRN Reason: FEVER OR PAIN Cholecalciferol (Vitamin D3 -) 2,000 unit PO DAILY [facility] Last Admin: 08/20/17 11:23 Dose: 2,000 unit Cinacalcet (Sensipar -) 30 mg PO MoWeFr@1000 [facility] Last Admin: 08/20/17 11:25 Dose: 30 mg Collagenase (Santyl -) 1 applic TP DAILY [facility] Last Admin: 08/20/17 15:01 Dose: 1 applic Furosemide (Lasix -) 80 mg PO DAILY [facility] Last Admin: 08/20/17 11:23 Dose: 80 mg Aztreonam 0.5 gm/ Dextrose 100 mls @ 100 mls/hr IVPB BID [facility] PRN Reason: Protocol Last Admin: 08/20/17 11:36 Dose: 100 mls/hr Vancomycin HCl 1,000 mg/ (Dextrose) 250 mls @ 166.667 mls/hr IVPB ONCE ONE Stop: 08/20/17 19:29 Labetalol HCl (Normodyne -) 300 mg PO BID [facility] Last Admin: 08/20/17 11:23 Dose: 300 mg Levothyroxine Sodium 25 mcg/ (Levothyroxine Sodium 200 mcg) 225 mcg PO DAILY@ 0700 [facility] Last Admin: 08/20/17 06:04 Dose: 225 mcg Multivitamins/Minerals/Vitamin C (Tab-A-Vit -) 1 tab PO DAILY [facility] Last Admin: 08/20/17 11:24 Dose: 1 tab Oxycodone HCl (Roxicodone -) 5 mg PO Q6H PRN PRN Reason: PAIN Last Admin: 08/20/17 12:20 Dose: 5 mg Pantoprazole Sodium (Protonix -) 20 mg PO DAILY [facility] Last Admin: 08/20/17 11:24 Dose: 20 mg Polyethylene Glycol (Miralax (For Daily Use) -) 17 gm PO BID [facility] Last Admin: 08/20/17 11:24 Dose: 17 gm Sevelamer Carbonate (Renvela -) 800 mg PO TIDCM [facility] Last Admin: 08/20/17 17:25 Dose: 800 mg Last Vital Signs Temp Pulse Resp BP Pulse Ox 98.9 F 99 H 18 124/62 98 08/20/17 14:30 12/25/17 14:30 08/20/17 10:00 08/20/17 14:30 08/20/17 09:00 lungs clear heart reg abd soft ext mild edema CBC, BMP 08/18/17 08:00 08/18/17 08:00 CBC, BMP 08/18/17 08:00 08/18/17 08:00 IMP- esrd no fluid overload hd tomorrow
[2017-08-21] MEDS ORDERED: EPOETIN ALFA 20,000 UNIT/1 ML VIAL IVPUSH ONE (00:01)
[2017-08-21] MEDS ORDERED: LEVOTHYROXINE NA 100 MCG TABLET (FP) ONE (05:53)
[2017-08-21] MEDS ORDERED: LEVOTHYROXINE NA 25 MCG TABLET (FP) ONE (05:53)
[2017-08-21] MEDS: LEVOTHYROXINE 25 MCG, LEVOTHYROXINE 200 MCG PO SCH (06:39)
[2017-08-21] MEDS: SEVELAMER CARBONATE 800 MG TAB (FP) PO SCH ×3 (08:06→18:34)
[2017-08-21 08:25] LABS: BASO % 0.5 % (0-2.0); EOS % 3.7 % (0-4.5); HEMATOCRIT 29.6 % (32.4-45.2); HEMOGLOBIN 9.6 GM/dL (10.7-15.3); LYMPH % 13.6 % (8-40); MCH 31.2 pg (25.7-33.7); MCHC 32.3 g/dl (32.0-36.0); MEAN CELL VOLUME 96.4 fl (80-96); MEAN PLT VOLUME 7.5 fl (7.5-11.1); MONO % 6.6 % (3.8-10.2); NEUT % 75.6 % (42.8-82.8); PLATELET COUNT 117 K/MM3 (134-434); RBC 3.07 M/mm3 (3.60-5.2); RDW 24.7 % (11.6-15.6); WHITE BLOOD COUNT 7.7 K/mm3 (4.0-10.0)
[2017-08-21 08:41] LABS: ADD RBC MORPHOLOGY YES
[2017-08-21 08:48] LABS: ALBUMIN 1.9 g/dl (3.4-5.0); ALK PHOS 185 U/L (45-117); ANION GAP 10 (8-16); BILIRUBIN,TOTAL 0.9 mg/dL (0.2-1.0); BLOOD UREA NITROGEN 29 mg/dL (7-18); CALCIUM 7.3 mg/dL (8.5-10.1); CHLORIDE 97 mmol/L (98-107); CO2 28 mmol/L (21-32); CREATININE 4.8 mg/dL (0.55-1.02); GLUCOSE,RANDOM 77 mg/dL (74-106); POTASSIUM 3.9 mmol/L (3.5-5.1); SGOT/AST 19 U/L (15-37); SGPT/ALT 8 U/L (12-78); SODIUM 135 mmol/L (136-145); TOT PROT 5.4 g/dl (6.4-8.2)
[2017-08-21] MEDS: COLLAGENASE CLOSTRIDIUM HIST. 30 GRAMS TUBE TP SCH (10:00)
--- NOTE | 2017-08-21 10:22 | PN ---
Progress Note (short form) - Note Progress Note: patient seen and examined comfortable No new issues Feels okay Tolerating diet with no further bleeding Vital Signs Temp 97.7 F 08/21/17 08:30 Pulse 88 08/21/17 08:30 Resp 18 08/21/17 08:30 BP 101/53 08/21/17 08:30 Pulse Ox 98 08/21/17 08:30 Intake & Output 08/20/17 08/20/17 08/21/17 11:59 23:59 11:59 Intake Total 200 350 Balance 200 350 Weight 196 lb 11.2 oz 198 lb 7 oz Intake: IVPB 200 350 Other: Voiding Method Incontinent Bowel Movement No Yes # Bowel Movements 1 Weight Measurement Method Built in Bedscale Built in Bedscale Active Medications Acetaminophen (Tylenol -) 650 mg PO Q6H PRN PRN Reason: FEVER OR PAIN Cholecalciferol (Vitamin D3 -) 2,000 unit PO DAILY [facility] Last Admin: 08/20/17 11:23 Dose: 2,000 unit Cinacalcet (Sensipar -) 30 mg PO MoWeFr@1000 [facility] Last Admin: 08/20/17 11:25 Dose: 30 mg Collagenase (Santyl -) 1 applic TP DAILY [facility] Last Admin: 08/20/17 15:01 Dose: 1 applic Epoetin Cesar (Procrit -) 20,000 unit IVPUSH ONCE ONE Stop: 08/21/17 00:02 Furosemide (Lasix -) 80 mg PO DAILY [facility] Last Admin: 08/20/17 11:23 Dose: 80 mg Aztreonam 0.5 gm/ Dextrose 100 mls @ 100 mls/hr IVPB BID [facility] PRN Reason: Protocol Last Admin: 08/20/17 22:10 Dose: 100 mls/hr Labetalol HCl (Normodyne -) 300 mg PO BID [facility] Last Admin: 08/20/17 22:09 Dose: 300 mg Levothyroxine Sodium 25 mcg/ (Levothyroxine Sodium 200 mcg) 225 mcg PO DAILY@ 0700 [facility] Last Admin: 08/21/17 06:39 Dose: 225 mcg Multivitamins/Minerals/Vitamin C (Tab-A-Vit -) 1 tab PO DAILY [facility] Last Admin: 08/20/17 11:24 Dose: 1 tab Oxycodone HCl (Roxicodone -) 5 mg PO Q6H PRN PRN Reason: PAIN Last Admin: 08/20/17 22:10 Dose: 5 mg Pantoprazole Sodium (Protonix -) 20 mg PO DAILY [facility] Last Admin: 08/20/17 11:24 Dose: 20 mg Polyethylene Glycol (Miralax (For Daily Use) -) 17 gm PO BID [facility] Last Admin: 08/20/17 22:10 Dose: Not Given Sevelamer Carbonate (Renvela -) 800 mg PO TIDCM [facility] Last Admin: 08/21/17 08:06 Dose: 800 mg CBC, BMP 08/21/17 07:00 08/21/17 07:00 physical N- alert, awake cvs-s1s2, systolic murmur lungs-clear abd-soft,nt, nd LE-TRACE edema , heel ulcer right hip- surgical site clean A/P clinically stable continue present care continue other meds monitor h/h--stable discontinue antibiotics? MRI? Discussed with ID--we will follow GI to follow physical therapy. discharge planning Discussed with nursing staff will follow. Problem List - Problems (1) Pneumonia Code(s): J18.9 - PNEUMONIA, UNSPECIFIED ORGANISM (2) ESRD (end stage renal disease) on dialysis Code(s): N18.6 - END STAGE RENAL DISEASE; Z99.2 - DEPENDENCE ON RENAL DIALYSIS (3) Lower GI bleed Code(s): K92.2 - GASTROINTESTINAL HEMORRHAGE, UNSPECIFIED (4) Aortic stenosis Code(s): I35.0 - NONRHEUMATIC AORTIC (VALVE) STENOSIS (5) Atrial fibrillation Code(s): I48.91 - UNSPECIFIED ATRIAL FIBRILLATION (6) CAD (coronary artery disease) Code(s): I25.10 - ATHSCL HEART DISEASE OF [place] CORONARY ARTERY W/O ANG PCTRS (7) Diabetes Code(s): E11.9 - TYPE 2 DIABETES MELLITUS WITHOUT COMPLICATIONS (8) Hip pain, right Code(s): M25.551 - PAIN IN RIGHT HIP (9) S/P hip replacement Code(s): Z96.649 - PRESENCE OF UNSPECIFIED ARTIFICIAL HIP JOINT
[2017-08-21] MEDS: AZTREONAM 0.5 GM in DEXTROSE 5%-WATER - 100 ML IVPB SCH ×2 (10:59→21:52)
[2017-08-21] MEDS: oxyCODONE HCL 5 MG TABLET PO PRN ×2 (11:01→18:39)
[2017-08-21] MEDS: POLYETHYLENE GLYCOL 3350 119 GM BTL PO SCH ×2 (12:04→23:00)
--- NOTE | 2017-08-21 13:03 | PN ---
Progress Note (short form) - Note Progress Note: continues with chronic pain in the foot/leg which she attributes to arthritis- hip, knee and ankle unable to walk Vital Signs Period Temp Pulse Resp BP Sys/Willson Pulse Ox Last 24 Hr 97.7 F-98.9 F 88-99 18-18 101-128/53-67 97-98 cor-rrr lungs clear abd soft,nt ext hip incision dry heel ulcer is clean and shallow, no palpable bone esr is 10 xray no bony changes CBC, BMP 08/21/17 07:00 08/21/17 07:00 Microbiology 08/17/17 10:45 Blood - Peripheral Venous Blood Culture - Preliminary NO GROWTH OBTAINED AFTER 96 HOURS, INCUBATION TO CONTINUE FOR 1 DAYS. 08/17/17 11:00 Blood - Peripheral Venous Blood Culture - Preliminary NO GROWTH OBTAINED AFTER 96 HOURS, INCUBATION TO CONTINUE FOR 1 DAYS. 08/14/17 12:30 Foot - Right Heel Gram Stain - Final 08/14/17 12:30 Foot - Right Heel Wound Culture - Final S Aureus Escherichia Coli Enterococcus Avium a/p suspect ulcer has not healed due to constant pressure from her "bad" leg- needs to off load the heel no cellulitis will d/c antibiotics f/u wound care with Dr Sinclair d/w Dr Sinclair and Dr Chilel Problem List - Problems (1) Diabetic foot ulcer Code(s): E11.621 - TYPE 2 DIABETES MELLITUS WITH FOOT ULCER; L97.509 - NON- PRESSURE CHRONIC ULCER OTH PRT UNSP FOOT W UNSP SEVERITY Qualifiers: Laterality: right (2) Lower GI bleed Code(s): K92.2 - GASTROINTESTINAL HEMORRHAGE, UNSPECIFIED (3) ESRD (end stage renal disease) on dialysis Code(s): N18.6 - END STAGE RENAL DISEASE; Z99.2 - DEPENDENCE ON RENAL DIALYSIS (4) Penicillin allergy Code(s): Z88.0 - ALLERGY STATUS TO PENICILLIN
[2017-08-21 15:23] LABS: ANISOCYTOSIS 2+
[2017-08-21 15:24] LABS: ACANTHOCYTES FEW; MACROCYTOSIS 1+
[2017-08-21] MEDS: PANTOPRAZOLE 20 MG TABLET (FP) PO SCH (18:33)
[2017-08-21] MEDS: LABETALOL HCL 100 MG TABLET (FP) PO SCH ×2 (18:33→21:52)
[2017-08-21] MEDS: MULTIVITAMINS (DAILY MVI) TABLET (FP) PO SCH (18:33)
[2017-08-21] MEDS: FUROSEMIDE 40 MG TABLET (FP) PO SCH (18:33)
[2017-08-21] MEDS: CHOLECALCIFEROL (VITAMIN D3) 1,000 UNIT TABLET (FP) PO SCH (18:34)
--- NOTE | 2017-08-22 00:27 | PN ---
Progress Note (short form) - Note Progress Note: seen on 08/21/17 seen and examined while on dialysis esrd Current Medications Acetaminophen (Tylenol -) 650 mg PO Q6H PRN PRN Reason: FEVER OR PAIN Cholecalciferol (Vitamin D3 -) 2,000 unit PO DAILY [facility] Last Admin: 08/21/17 18:34 Dose: 2,000 unit Cinacalcet (Sensipar -) 30 mg PO MoWeFr@1000 [facility] Last Admin: 08/20/17 11:25 Dose: 30 mg Collagenase (Santyl -) 1 applic TP DAILY [facility] Last Admin: 08/21/17 10:00 Dose: 1 applic Furosemide (Lasix -) 80 mg PO DAILY [facility] Last Admin: 08/21/17 18:33 Dose: 80 mg Aztreonam 0.5 gm/ Dextrose 100 mls @ 100 mls/hr IVPB BID [facility] PRN Reason: Protocol Last Admin: 08/21/17 21:52 Dose: 100 mls/hr Labetalol HCl (Normodyne -) 300 mg PO BID [facility] Last Admin: 08/21/17 21:52 Dose: 300 mg Levothyroxine Sodium 25 mcg/ (Levothyroxine Sodium 200 mcg) 225 mcg PO DAILY@ 0700 [facility] Last Admin: 08/21/17 06:39 Dose: 225 mcg Multivitamins/Minerals/Vitamin C (Tab-A-Vit -) 1 tab PO DAILY [facility] Last Admin: 08/21/17 18:33 Dose: 1 tab Oxycodone HCl (Roxicodone -) 5 mg PO Q6H PRN PRN Reason: PAIN Last Admin: 08/21/17 18:39 Dose: 5 mg Pantoprazole Sodium (Protonix -) 20 mg PO DAILY [facility] Last Admin: 08/21/17 18:33 Dose: 20 mg Polyethylene Glycol (Miralax (For Daily Use) -) 17 gm PO BID [facility] Last Admin: 08/21/17 23:00 Dose: Not Given Sevelamer Carbonate (Renvela -) 800 mg PO TIDCM [facility] Last Admin: 08/21/17 18:34 Dose: 800 mg Last Vital Signs Temp Pulse Resp BP Pulse Ox 97.7 F 81 80 H 119/63 98 08/21/17 18:00 08/21/17 18:00 08/21/17 18:00 08/21/17 18:00 08/21/17 10:00 lungs clear heart reg abd soft ext mild edema CBC, BMP 08/21/17 07:00 08/21/17 07:00 IMP- esrd no fluid overload stable during hd
[2017-08-22] MEDS: oxyCODONE HCL 5 MG TABLET PO PRN ×2 (05:03→22:32)
[2017-08-22] MEDS ORDERED: LEVOTHYROXINE NA 100 MCG TABLET (FP) ONE (05:41)
[2017-08-22] MEDS ORDERED: LEVOTHYROXINE NA 25 MCG TABLET (FP) ONE (05:42)
[2017-08-22] MEDS: LEVOTHYROXINE 25 MCG, LEVOTHYROXINE 200 MCG PO SCH (06:10)
[2017-08-22] MEDS: SEVELAMER CARBONATE 800 MG TAB (FP) PO SCH ×3 (08:32→16:58)
--- NOTE | 2017-08-22 10:16 | PN ---
Progress Note (short form) - Note Progress Note: patient seen and examined. comfortable No new issues Feels okay Tolerating diet no further bleeding Vital Signs Temp 97.8 F 08/22/17 06:00 Pulse 96 H 08/22/17 06:00 Resp 18 08/22/17 06:00 BP 112/61 08/22/17 06:00 Pulse Ox 98 08/21/17 21:00 Intake & Output 08/21/17 08/21/17 08/22/17 11:59 23:59 11:59 Intake Total 650 100 Balance 650 100 Weight 198 lb 7 oz 200 lb 5 oz Intake: IVPB 100 Oral 650 Other: Voiding Method Incontinent Incontinent Bowel Movement No # Bowel Movements 1 Weight Measurement Method Built in Bedscale Built in Bedscale Active Medications Acetaminophen (Tylenol -) 650 mg PO Q6H PRN PRN Reason: FEVER OR PAIN Cholecalciferol (Vitamin D3 -) 2,000 unit PO DAILY [facility] Last Admin: 08/21/17 18:34 Dose: 2,000 unit Cinacalcet (Sensipar -) 30 mg PO MoWeFr@1000 [facility] Last Admin: 08/20/17 11:25 Dose: 30 mg Collagenase (Santyl -) 1 applic TP DAILY [facility] Last Admin: 08/21/17 10:00 Dose: 1 applic Furosemide (Lasix -) 80 mg PO DAILY [facility] Last Admin: 08/21/17 18:33 Dose: 80 mg Aztreonam 0.5 gm/ Dextrose 100 mls @ 100 mls/hr IVPB BID [facility] PRN Reason: Protocol Last Admin: 08/21/17 21:52 Dose: 100 mls/hr Labetalol HCl (Normodyne -) 300 mg PO BID [facility] Last Admin: 08/21/17 21:52 Dose: 300 mg Levothyroxine Sodium 25 mcg/ (Levothyroxine Sodium 200 mcg) 225 mcg PO DAILY@ 0700 [facility] Last Admin: 08/22/17 06:10 Dose: 225 mcg Multivitamins/Minerals/Vitamin C (Tab-A-Vit -) 1 tab PO DAILY [facility] Last Admin: 08/21/17 18:33 Dose: 1 tab Oxycodone HCl (Roxicodone -) 5 mg PO Q6H PRN PRN Reason: PAIN Last Admin: 08/22/17 05:03 Dose: 5 mg Pantoprazole Sodium (Protonix -) 20 mg PO DAILY [facility] Last Admin: 08/21/17 18:33 Dose: 20 mg Polyethylene Glycol (Miralax (For Daily Use) -) 17 gm PO BID [facility] Last Admin: 08/21/17 23:00 Dose: Not Given Sevelamer Carbonate (Renvela -) 800 mg PO TIDCM [facility] Last Admin: 08/22/17 08:32 Dose: 800 mg CBC, BMP 08/21/17 07:00 08/21/17 07:00 physical Exam N- alert, awake cvs-s1s2, systolic murmur lungs-clear abd-soft,nt, nd LE-TRACE edema , heel ulcer right hip- surgical site clean-- anjum in place A/P clinically stable continue present care continue other meds monitor h/h--stable off abx GI to follow restart on asprin / heparin ?- await gi input physical therapy. pt also wants anjum to be removed by ortho discharge planning Discussed with nursing staff will follow. Problem List - Problems (1) Pneumonia Code(s): J18.9 - PNEUMONIA, UNSPECIFIED ORGANISM (2) ESRD (end stage renal disease) on dialysis Code(s): N18.6 - END STAGE RENAL DISEASE; Z99.2 - DEPENDENCE ON RENAL DIALYSIS (3) Lower GI bleed Code(s): K92.2 - GASTROINTESTINAL HEMORRHAGE, UNSPECIFIED (4) Aortic stenosis Code(s): I35.0 - NONRHEUMATIC AORTIC (VALVE) STENOSIS (5) Atrial fibrillation Code(s): I48.91 - UNSPECIFIED ATRIAL FIBRILLATION (6) CAD (coronary artery disease) Code(s): I25.10 - ATHSCL HEART DISEASE OF [place] CORONARY ARTERY W/O ANG PCTRS (7) Diabetes Code(s): E11.9 - TYPE 2 DIABETES MELLITUS WITHOUT COMPLICATIONS (8) Hip pain, right Code(s): M25.551 - PAIN IN RIGHT HIP (9) S/P hip replacement Code(s): Z96.649 - PRESENCE OF UNSPECIFIED ARTIFICIAL HIP JOINT
[2017-08-22] MEDS: POLYETHYLENE GLYCOL 3350 119 GM BTL PO SCH ×2 (11:00→22:03)
[2017-08-22] MEDS ORDERED: PT OWN MED DRAWER 7, Y5N ONE ×3 (11:03→21:36)
[2017-08-22] MEDS: CINACALCET HCL 30 MG TAB (FP) PO SCH (11:08)
[2017-08-22] MEDS: AZTREONAM 0.5 GM in DEXTROSE 5%-WATER - 100 ML IVPB SCH ×2 (11:08→22:36)
[2017-08-22] MEDS: FUROSEMIDE 40 MG TABLET (FP) PO SCH (11:08)
[2017-08-22] MEDS: LABETALOL HCL 100 MG TABLET (FP) PO SCH ×2 (11:08→21:52)
[2017-08-22] MEDS: CHOLECALCIFEROL (VITAMIN D3) 1,000 UNIT TABLET (FP) PO SCH (11:08)
[2017-08-22] MEDS: MULTIVITAMINS (DAILY MVI) TABLET (FP) PO SCH (11:09)
[2017-08-22] MEDS: PANTOPRAZOLE 20 MG TABLET (FP) PO SCH (11:09)
[2017-08-22] MEDS: COLLAGENASE CLOSTRIDIUM HIST. 30 GRAMS TUBE TP SCH (11:09)
--- NOTE | 2017-08-22 12:46 | PN ---
Progress Note (short form) - Note Progress Note: Renal follow up for ESRD on HD/Anemia Pt seen and examined at the bedside no acute complaints s/p dialysis yesterday Vital Signs Temperature 98.0 F 08/22/17 10:00 Pulse Rate 96 H 08/22/17 10:00 Respiratory Rate 20 08/22/17 10:00 Blood Pressure 115/61 08/22/17 10:00 O2 Sat by Pulse Oximetry (%) 97 08/22/17 09:00 Intake & Output 08/19/17 08/20/17 08/21/17 08/22/17 23:59 23:59 23:59 23:59 Intake Total 400 550 650 100 Balance 400 550 650 100 Weight 88.252 kg 89.222 kg 90.01 kg 90.86 kg NAD awake and alert No LE edema CBC, BMP 08/21/17 07:00 08/21/17 07:00 Current Medications Acetaminophen (Tylenol -) 650 mg PO Q6H PRN PRN Reason: FEVER OR PAIN Cholecalciferol (Vitamin D3 -) 2,000 unit PO DAILY [facility] Last Admin: 08/22/17 11:08 Dose: 2,000 unit Cinacalcet (Sensipar -) 30 mg PO MoWeFr@1000 [facility] Last Admin: 08/22/17 11:08 Dose: 30 mg Collagenase (Santyl -) 1 applic TP DAILY [facility] Last Admin: 08/22/17 11:09 Dose: 1 applic Furosemide (Lasix -) 80 mg PO DAILY [facility] Last Admin: 08/22/17 11:08 Dose: 80 mg Aztreonam 0.5 gm/ Dextrose 100 mls @ 100 mls/hr IVPB BID [facility] PRN Reason: Protocol Last Admin: 08/22/17 11:08 Dose: 100 mls/hr Labetalol HCl (Normodyne -) 300 mg PO BID [facility] Last Admin: 08/22/17 11:08 Dose: 300 mg Levothyroxine Sodium 25 mcg/ (Levothyroxine Sodium 200 mcg) 225 mcg PO DAILY@ 0700 [facility] Last Admin: 08/22/17 06:10 Dose: 225 mcg Multivitamins/Minerals/Vitamin C (Tab-A-Vit -) 1 tab PO DAILY [facility] Last Admin: 08/22/17 11:09 Dose: 1 tab Oxycodone HCl (Roxicodone -) 5 mg PO Q6H PRN PRN Reason: PAIN Last Admin: 08/22/17 05:03 Dose: 5 mg Pantoprazole Sodium (Protonix -) 20 mg PO DAILY [facility] Last Admin: 08/22/17 11:09 Dose: 20 mg Polyethylene Glycol (Miralax (For Daily Use) -) 17 gm PO BID [facility] Last Admin: 08/22/17 11:00 Dose: Not Given Sevelamer Carbonate (Renvela -) 800 mg PO TIDCM [facility] Last Admin: 08/22/17 11:46 Dose: 800 mg 82 year old woman with PMhx of ESRD no HD x 7 years, hypertension, DM, s/p recent hip replacement presented from HD with bright red blood per rectum. #Acute GI Bleed with acute on chronic anemia Hgb stable no further bleeding at this time #ESRD on HD s/p dialysis yesterday no acute indication for treatment today #s/p recent hip replacement supportive care pain control orthopedic follow up #Hypertension BP stable off meds Thank you Kenny Yeboah DO
--- NOTE | 2017-08-22 21:57 | HOSP ---
Subjective - Review of Symptoms Events since last encounter: hospitalist encounter Notified by primary nurse, that the patient's Oxycodone medication needs renewing A/P Oxycodone renewed Physical Examination Vital Signs: Vital Signs Temperature 98.2 F 08/22/17 20:19 Pulse Rate 95 H 08/22/17 20:19 Respiratory Rate 20 08/22/17 20:19 Blood Pressure 124/82 08/22/17 20:19 O2 Sat by Pulse Oximetry (%) 97 08/22/17 20:37 Labs: CBC, BMP 08/21/17 07:00 08/21/17 07:00
[2017-08-22] MEDS ORDERED: DISP SYRIN IVPUSH SCH (22:00)
[2017-08-22] MEDS ORDERED: AZTREONAM IVPUSH SCH (22:00)
[2017-08-22] MEDS ORDERED: ONDANSETRON 4 MG/2 ML VIAL IVPUSH ONE (22:30)
[2017-08-22] MEDS: AZTREONAM IVPUSH SCH (23:50)
[2017-08-22] MEDS: DISP SYRIN IVPUSH SCH (23:50)
[2017-08-23] MEDS ORDERED: LEVOTHYROXINE NA 100 MCG TABLET (FP) ONE (05:01)
[2017-08-23] MEDS ORDERED: LEVOTHYROXINE NA 25 MCG TABLET (FP) ONE (05:01)
[2017-08-23] MEDS ORDERED: EPOETIN ALFA 20,000 UNIT/1 ML VIAL SQ ONE (06:00)
[2017-08-23] MEDS: LEVOTHYROXINE 25 MCG, LEVOTHYROXINE 200 MCG PO SCH (06:20)
[2017-08-23] MEDS: SEVELAMER CARBONATE 800 MG TAB (FP) PO SCH ×3 (08:58→13:10)
[2017-08-23 09:30] VITALS: TEMP 98.1
[2017-08-23 10:17] LABS: HEMATOCRIT 27.8 % (32.4-45.2); HEMOGLOBIN 8.9 GM/dL (10.7-15.3); MCH 31.3 pg (25.7-33.7); MEAN CELL VOLUME 97.8 fl (80-96); MEAN PLT VOLUME 7.9 fl (7.5-11.1); PLATELET COUNT 103 K/MM3 (134-434); RBC 2.84 M/mm3 (3.60-5.2); RDW 25.2 % (11.6-15.6); WHITE BLOOD COUNT 6.3 K/mm3 (4.0-10.0)
[2017-08-23] MEDS ORDERED: VANCOMYCIN 1 GRAM (PRE-DOCKED) 1,000 MG/250 ML BAG IVPB ONE (10:29)
--- NOTE | 2017-08-23 10:35 | DS ---
Physical Examination Vital Signs: Vital Signs Temperature 98.1 F 08/23/17 09:05 Pulse Rate 90 08/23/17 09:10 Respiratory Rate 18 08/23/17 09:10 Blood Pressure 126/77 08/23/17 09:10 O2 Sat by Pulse Oximetry (%) 97 08/22/17 20:37 Findings/Remarks: feels well no complains pain ok Constitutional: Yes: No Distress, Calm Eyes: Yes: Conjunctiva Clear Neck: Yes: Supple Cardiovascular: Yes: Pulse Irregular Respiratory: Yes: Diminished Gastrointestinal: Yes: Normal Bowel Sounds, Soft Edema: No Wound/Incision: Yes: [place] Intact Neurological: Yes: Alert Psychiatric: Yes: Alert Labs: CBC, BMP 08/23/17 09:10 Discharge Summary Reason For Visit: DEPENDENCE ON RENAL DIALYSIS; LOWER GI BLEEDING Current Active Problems ESRD (end stage renal disease) on dialysis (Acute) Lower GI bleed (Acute) Penicillin allergy (Acute) Pneumonia (Acute) Hospital Course: 82 y.o.F, ESRD on HD x 7 yrs, cardiac stenting 03/2017, hip replacement 07/27/17 , constipated post hip replacement, brought for gi bleed treated conservatively gi consulted pt also transfused no bleeding now pt high risk for dvt/ discussed with pt pt agree to start on heparin / asa risks/ benefits discussed will start with caution also discussed with Dr. Durand-- will give vanco today with dialysis and will give for 2 weeks wound care follow with Dr. Ravi rose reconcilled discussed with nursing staff d/c time 35 min in examining / documenting and coordating care Condition: Improved - Instructions Disposition: [facility] - Home Medications Comprehensive Discharge Medication List: Ambulatory Orders Ascorbic Acid [Vitamin C -] 500 mg PO DAILY 07/22/17 Cholecalciferol (Vitamin D3) [D3-2000] 2,000 unit PO DAILY 07/22/17 Cinacalcet HCl [Sensipar] 30 mg PO ASDIR 07/22/17 Collagenase Clostridium Hist. [Santyl] 90 gm TP DAILY 07/22/17 Furosemide [Lasix] 80 mg PO DAILY 07/22/17 Insulin Aspart Prot/Insuln Asp [Novolog Mix 70-30 Vial] 6 unit SQ AM 07/22/17 Insulin Aspart Prot/Insuln Asp [Novolog Mix 70-30 Vial] 8 unit SQ HS 07/22/17 Labetalol HCl 300 mg PO BID 07/22/17 Magnesium Oxide 400 mg PO DAILY 07/22/17 Mv-Min/Folic/Vit K/Lycop/Coq10 [Daily Multivitamin Capsule] 1 each PO DAILY Sevelamer Carbonate [Renvela -] 800 mg PO TID 07/22/17 Vitamin A Palmitate [Vitamin A] 1 tab PO DAILY 07/22/17 Heparin - 5,000 unit SQ BID #60 vial 07/31/17 Levothyroxine [Synthroid -] 225 mcg PO DAILY@0700 #30 tablet 07/31/17 Oxycodone HCl [Roxicodone -] 5 mg PO Q6H PRN #60 tablet MDD 4 07/31/17 Acetaminophen [Tylenol .Regular Strength -] 325 mg PO Q4H PRN tablet 08/01/17 Aspirin Coated [Ecotrin -] 81 mg PO DAILY tablet.ec 08/01/17 Insulin Sliding Scale [Novolog Vial Sliding Scale -] 1 vial SQ BIDAC units 02/10 Mupirocin Ointment [Bactroban Ointment (For Decolonization) -] 1 applic NS BID applic 08/01/17 Polyethylene Glycol 3350 [Miralax 119 gm Btl -] 17 gm PO DAILY PRN bottle 08/01 Labetalol HCl [Normodyne -] 300 mg PO BID tablet 08/23/17 Pantoprazole Sodium [Protonix] 40 mg PO DAILY #0 cap 08/23/17 Vancomycin 1,000 mg GT ONCE #10 vial 08/23/17
[2017-08-23 10:45] LABS: ANION GAP 7 (8-16); BLOOD UREA NITROGEN 25 mg/dL (7-18); CALCIUM 7.4 mg/dL (8.5-10.1); CHLORIDE 100 mmol/L (98-107); CO2 31 mmol/L (21-32); CREATININE 4.2 mg/dL (0.55-1.02); GLUCOSE,RANDOM 97 mg/dL (74-106); PHOSPHOROUS 2.1 mg/dL (2.5-4.9); POTASSIUM 3.6 mmol/L (3.5-5.1); SODIUM 138 mmol/L (136-145)
[2017-08-23] MEDS ORDERED: VANCOMYCIN 1,000 MG in DEXTROSE 5%-WATER - 250 ML IVPB ONE (11:00)
--- NOTE | 2017-08-23 11:27 | PN ---
Progress Note (short form) - Note Progress Note: Renal follow up for ESRD on HD/Anemia Pt seen and examined during dialysis awake and alert no acute complaints bp stable, goal uF Is 2L access with good flow Vital Signs Temperature 98.1 F 08/23/17 09:05 Pulse Rate 90 08/23/17 09:10 Respiratory Rate 18 08/23/17 09:10 Blood Pressure 126/77 08/23/17 09:10 O2 Sat by Pulse Oximetry (%) 97 08/22/17 20:37 Intake & Output 08/20/17 08/21/17 08/22/17 08/23/17 23:59 23:59 23:59 23:59 Intake Total 550 650 900 100 Balance 550 650 900 100 Weight 89.222 kg 90.01 kg 90.86 kg 90.718 kg NAD awake and alert No LE edema CBC, BMP 08/23/17 09:10 08/23/17 09:10 Current Medications Acetaminophen (Tylenol -) 650 mg PO Q6H PRN PRN Reason: FEVER OR PAIN Last Admin: 08/22/17 16:56 Dose: 650 mg Cholecalciferol (Vitamin D3 -) 2,000 unit PO DAILY [facility] Last Admin: 08/22/17 11:08 Dose: 2,000 unit Cinacalcet (Sensipar -) 30 mg PO MoWeFr@1000 [facility] Last Admin: 08/22/17 11:08 Dose: 30 mg Collagenase (Santyl -) 1 applic TP DAILY [facility] Last Admin: 08/22/17 11:09 Dose: 1 applic Furosemide (Lasix -) 80 mg PO DAILY [facility] Last Admin: 08/22/17 11:08 Dose: 80 mg Aztreonam (Azactam (Restricted To Id) -) 0.5 gm in 5 mls @ 60 mls/hr IVPUSH BID [facility] PRN Reason: Protocol Last Admin: 08/22/17 23:50 Dose: 60 mls/hr Vancomycin HCl 1,000 mg/ (Dextrose) 250 mls @ 250 mls/hr IVPB ONCE ONE Stop: 08/23/17 11:59 Labetalol HCl (Normodyne -) 300 mg PO BID [facility] Last Admin: 08/22/17 21:52 Dose: 300 mg Levothyroxine Sodium 25 mcg/ (Levothyroxine Sodium 200 mcg) 225 mcg PO DAILY@ 0700 [facility] Last Admin: 08/23/17 06:20 Dose: 225 mcg Multivitamins/Minerals/Vitamin C (Tab-A-Vit -) 1 tab PO DAILY [facility] Last Admin: 08/22/17 11:09 Dose: 1 tab Oxycodone HCl (Roxicodone -) 5 mg PO Q6H PRN PRN Reason: PAIN Last Admin: 08/22/17 22:32 Dose: 5 mg Pantoprazole Sodium (Protonix -) 20 mg PO DAILY [facility] Last Admin: 08/22/17 11:09 Dose: 20 mg Polyethylene Glycol (Miralax (For Daily Use) -) 17 gm PO BID [facility] Last Admin: 08/22/17 22:03 Dose: Not Given Sevelamer Carbonate (Renvela -) 800 mg PO TIDCM [facility] Last Admin: 08/23/17 08:58 Dose: 800 mg 82 year old woman with PMhx of ESRD no HD x 7 years, hypertension, DM, s/p recent hip replacement presented from HD with bright red blood per rectum. #Acute GI Bleed with acute on chronic anemia Hgb stable no heparin with dialysis #ESRD on HD tolerating dialysis well today #s/p recent hip replacement supportive care pain control orthopedic follow up #Hypertension BP stable off meds #Pressure ulcer on heal to get IV VAnco with dialysis x 2 weeks Thank you Kenny Yeboah DO
[2017-08-23] MEDS: AZTREONAM IVPUSH SCH (13:00)
[2017-08-23] MEDS: DISP SYRIN IVPUSH SCH (13:00)
[2017-08-23 13:07] VITALS: BP 120/69; PULSE 90
[2017-08-23] MEDS: LABETALOL HCL 100 MG TABLET (FP) PO SCH (13:08)
[2017-08-23] MEDS: FUROSEMIDE 40 MG TABLET (FP) PO SCH (13:09)
[2017-08-23] MEDS: PANTOPRAZOLE 20 MG TABLET (FP) PO SCH (13:09)
[2017-08-23] MEDS: MULTIVITAMINS (DAILY MVI) TABLET (FP) PO SCH (13:09)
[2017-08-23] MEDS: CHOLECALCIFEROL (VITAMIN D3) 1,000 UNIT TABLET (FP) PO SCH (13:09)
[2017-08-23] MEDS: POLYETHYLENE GLYCOL 3350 119 GM BTL PO SCH (13:10)
[2017-08-23] MEDS: COLLAGENASE CLOSTRIDIUM HIST. 30 GRAMS TUBE TP SCH (13:10)
[2017-08-23] MEDS: oxyCODONE HCL 5 MG TABLET PO PRN (15:11)
== END 2017-08-23 18:05 | DRG 377 ==
LOC: JER 11:52 → JERBED 14:15 → JICU 21:12 → J6S 08-16 21:52
PROVIDERS: ADMIT Internal Medicine; ATTEND Internal Medicine
PROC: 30233R1 Transfusion of Nonautologous Platelets into Peripheral Vein, Percutaneous Approach (ICD-10-PCS; principal; 2017-08-14)
PROC: 30233H1 Transfusion of Nonautologous Whole Blood into Peripheral Vein, Percutaneous Approach (ICD-10-PCS; 2017-08-15)
PROC: 5A1D70Z Performance of Urinary Filtration, Intermittent, Less than 6 Hours Per Day (ICD-10-PCS; 2017-08-16)
DX: K92.2 Gastrointestinal hemorrhage, unspecified (principal); N18.6 End stage renal disease; J18.9 Pneumonia, unspecified organism; I13.2 Hypertensive heart and chronic kidney disease with heart failure and with stage 5 chronic kidney disease, or end stage renal disease; L97.419 Non-pressure chronic ulcer of right heel and midfoot with unspecified severity; I50.40 Unspecified combined systolic (congestive) and diastolic (congestive) heart failure; E11.22 Type 2 diabetes mellitus with diabetic chronic kidney disease; B95.62 Methicillin resistant Staphylococcus aureus infection as the cause of diseases classified elsewhere; I48.0 Paroxysmal atrial fibrillation; I25.10 Atherosclerotic heart disease of native coronary artery without angina pectoris; E11.621 Type 2 diabetes mellitus with foot ulcer; Z99.2 Dependence on renal dialysis; I34.0 Nonrheumatic mitral (valve) insufficiency; I35.0 Nonrheumatic aortic (valve) stenosis; Z96.641 Presence of right artificial hip joint; D50.0 Iron deficiency anemia secondary to blood loss (chronic); E03.9 Hypothyroidism, unspecified; L25.9 Unspecified contact dermatitis, unspecified cause; Z51.89 Encounter for other specified aftercare; Z88.0 Allergy status to penicillin
CPT/HCPCS: 36415; 36430; 71010-TC; 73610-TC-RT; 73630-TC-RT; 80048; 80053; 82272; 83036; 83735; 84100; 85025; 85027; 85610; 85651; 86140; 86850; 86900; 86901; 86922; 87040; 87070; 87186; 87205; 93005; 93010; 97162-GP; 99285-25; G0480; J0885; P9034; P9038; P9058

== ENCOUNTER 2018-05-25 09:48 | Emergency (ER) | payer OTHER, BC ==
[2018-05-25 09:58] VITALS: BP 151/55; PULSE 70; TEMP 97; BMI 25.4
[2018-05-25] MEDS ORDERED: LIDOCAINE 1%/EPI 1:100000 (20 ML MULTI DOSE VIAL) IJ ONE (10:32)
--- NOTE | 2018-05-25 10:32 | PDOC ---
History of Present Illness - General Chief Complaint: Nasal Bleeding Stated Complaint: NOSEBLEED Time Seen by Provider: 05/25/18 10:02 - History of Present Illness Initial Comments: 83 y/o F w/PMH of ESRD on HD (TTS), OA, HTN, DM, hemorrhoids, complete hip replacement, GIB (07/2017) presents to the ER from dialysis (but is resident from [facility]). Pt blew her nose during dialysis and had continuous oozing of blood from L nostril which started at approximately 8am this morning. She had finished over half the dialysis session. She had a nose bleed 3 weeks ago which stopped on its own in approximately 15 min and has not had a nose bleed for at least year. Denies N/V/F/C, ROMEO, light-headedness, CP, SOB, cough, abd pain, dysuria, change in bowel movements. Pt takes aspirin 81 mg daily but not on any other anti-coagulants. Past History - Past Medical History Allergies/Adverse Reactions: Allergies Allergy/AdvReac Type Severity Reaction Status Date / Time erythromycin base Allergy Verified 05/25/18 09:58 Penicillins Allergy Verified 05/25/18 09:58 verapamil [Verapamil] Allergy Verified 05/25/18 09:58 aspirin AdvReac Nausea Verified 05/25/18 10:13 AQUACEL DRESSING AdvReac Uncoded 05/25/18 09:58 Home Medications: Ambulatory Orders Ascorbic Acid [Vitamin C -] 500 mg PO DAILY 07/22/17 Cholecalciferol (Vitamin D3) [D3-2000] 2,000 unit PO DAILY 07/22/17 Cinacalcet HCl [Sensipar] 30 mg PO ASDIR 07/22/17 Furosemide [Lasix] 80 mg PO DAILY 07/22/17 Labetalol HCl 300 mg PO BID 07/22/17 Magnesium Oxide 400 mg PO DAILY 07/22/17 Mv-Min/Folic/Vit K/Lycop/Coq10 [Daily Multivitamin Capsule] 1 each PO DAILY Vitamin A Palmitate [Vitamin A] 1 tab PO DAILY 07/22/17 Levothyroxine [Synthroid -] 225 mcg PO DAILY@0700 #30 tablet 07/31/17 Aspirin Coated [Ecotrin -] 81 mg PO DAILY tablet.ec 08/01/17 Insulin Sliding Scale [Novolog Vial Sliding Scale -] 1 vial SQ BIDAC units 02/10 Polyethylene Glycol 3350 [Miralax 119 gm Btl -] 17 gm PO DAILY PRN bottle 08/01 Pantoprazole Sodium [Protonix] 40 mg PO DAILY #0 cap 08/23/17 Cardiac Disorders: Yes (-FIB 2000) COPD: No Diabetes: Yes Dialysis: Yes () HTN: Yes Hypercholesterolemia: Yes Thyroid Disease: Yes - Surgical History Cardiac Surgery: Yes Orthopedic Surgery: (Yes; right hip surgery) - Suicide/Smoking/Psychosocial Hx Smoking Status: No Smoking History: Never smoked Have you smoked in the past 12 months: No Number of Cigarettes Smoked Daily: 0 Information on smoking cessation initiated: No Hx Alcohol Use: No Drug/Substance Use Hx: No Substance Use Type: None Hx Substance Use Treatment: No Review of Systems - Review of Systems Able to Perform ROS?: Yes Constitutional: No: Chills, Fever HEENTM: No: Difficulty Swallowing Respiratory: No: Cough, Shortness of Breath Cardiac (ROS): No: Chest Pain, Edema, Lightheadedness, Palpitations ABD/GI: No: Nausea, Vomiting : No: Burning, Dysuria Neurological: No: Headache, Weakness *Physical Exam - Vital Signs Last Vital Signs Temp Pulse Resp BP Pulse Ox 97 F L 70 16 151/55 L 100 05/25/18 09:57 05/25/18 09:57 05/25/18 09:57 05/25/18 09:57 05/25/18 09:57 - Physical Exam General Appearance: Yes: Appropriately Dressed. No: Apparent Distress HEENT: positive: EOMI, Other (Active oozing of bright red blood noted in posterior oropharynx. Active small source of bleed in anterior L septum of nose seen.) Neck: negative: Carotid bruit Respiratory/Chest: positive: Lungs Clear, Normal Breath Sounds Cardiovascular: positive: Murmur (systolic murmur), Irregularly Irregular Gastrointestinal/Abdominal: positive: Normal Bowel Sounds, Soft Neurologic: positive: Fully Oriented, Alert, Normal Mood/Affect, Normal Response ED Treatment Course - LABORATORY CBC & Chemistry Diagram: 05/25/18 10:40 05/25/18 10:40 Medical Decision Making - Medical Decision Making 05/25/18 10:36 Active oozing seen in back of posterior oropharynx with dried blood on palate. Will check CBC, chemistries, INR. 05/25/18 10:57 Active bleeding source identified in L nostril, anterior septum (anterior epistaxis). Using cotton tip applicator, xylocaine 1% applied to source of bleed. Silver nitrate also applied to site. Active oozing no longer seen in posterior oropharynx after application of xylocaine and silver nitrate. 05/25/18 11:11 H/H stable. Hgb at 11.7 (higher than baseline) 05/25/18 12:05 CMP with Na at 133, K at 3.2. Pt to return to dialysis on schedule on Sunday. Repeat physical exam shows no active bleeding in nostrils. No blood seen oropharynx or active oozing noted. Pt to f/u with PCP within 1 week and to f/u with ENT w/in 1 week (Dr. Suresh Shultz referral given). Pt to report back to the ER if she has worsening of her symptoms or new concerning symptoms. Nose blowing precautions, sneezing precautions, no digital manipulation of nose explained to pt. *DC/Admit/Observation/Transfer Diagnosis at time of Disposition: Anterior epistaxis - Discharge Dispostion Disposition: HOME Condition at time of disposition: Stable Decision to Admit order: No - Referrals Referrals: Suresh Shultz MD [Staff Physician] - Brittni Bolaños MD [Primary Care Provider] - - Patient Instructions Printed Discharge Instructions: DI for Nosebleed - Post Discharge Activity
[2018-05-25] MEDS ORDERED: LIDOCAINE 1%/EPI 1:100000 (20 ML MULTI DOSE VIAL) ONE (10:38)
[2018-05-25] MEDS ORDERED: SILVER NITRATE 75% APPLIC STCK 1 PKT EACH ONE (10:51)
[2018-05-25 10:53] LABS: BASO % 0.5 % (0-2.0); EOS % 2.9 % (0-4.5); HEMATOCRIT 35.1 % (32.4-45.2); HEMOGLOBIN 11.7 GM/dL (10.7-15.3); LYMPH % 10.6 % (8-40); MCH 34.4 pg (25.7-33.7); MCHC 33.2 g/dl (32.0-36.0); MEAN CELL VOLUME 103.4 fl (80-96); MONO % 10.1 % (3.8-10.2); NEUT % 75.9 % (42.8-82.8); PLATELET COUNT 123 K/MM3 (134-434); RBC 3.39 M/mm3 (3.60-5.2); RDW 13.7 % (11.6-15.6); WHITE BLOOD COUNT 6.5 K/mm3 (4.0-10.0)
[2018-05-25 11:13] LABS: INR 1.03 (0.83-1.09); PROTHROMBIN TIME (PATIENT) 12.1 SEC (9.7-13.0)
[2018-05-25 11:24] LABS: ALBUMIN 2.6 g/dl (3.4-5.0); ALK PHOS 196 U/L (45-117); ANION GAP 9 MMOL/L (8-16); BILIRUBIN,TOTAL 0.6 mg/dL (0.2-1); BLOOD UREA NITROGEN 57 mg/dL (7-18); CALCIUM 7.9 mg/dL (8.5-10.1); CHLORIDE 99 mmol/L (98-107); CO2 24 mmol/L (21-32); GLUCOSE,RANDOM 95 mg/dL (74-106); POTASSIUM 3.2 mmol/L (3.5-5.1); SGOT/AST 28 U/L (15-37); SGPT/ALT 17 U/L (13-61); SODIUM 133 mmol/L (136-145); TOT PROT 7.3 g/dl (6.4-8.2)
[2018-05-25] MEDS ORDERED: SILVER NITRATE 75% APPLIC STCK 1 PKT EACH TP ONE (11:41)
--- NOTE | 2018-05-25 12:18 | PDOC ---
Attending Attestation - Resident Resident Name: Germán Sinclair - ED Attending Attestation I have performed the following: I have examined & evaluated the patient, The case was reviewed & discussed with the resident, I agree w/resident's findings & plan - HPI HPI: 05/25/18 12:13 Ms. 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 nostril bleed since 8:00 am today. The patient presents from dialysis ( states she didnt complete her course) with a nosebleed that began after she blew her nose. The patient states prior episode was contained within 15-20 minutes of pressure but states today no relief was noted even after pressure. - Physicial Exam PE: 05/25/18 12:13 NAD, well appearing, MMM, nl conjunctiva, anicteric; dry blood around the hard palate, no blood noted in the R. nostril, left nostril anterior septum with small punctate area of bleeding/oozing. neck supple. lungs clear, Irregularly irregular holosystolic murmur, abdomen soft nontender. THORNTON x4, no focal neuro deficits. No peripheral edema, L. forearm fistula with palpable thrill . normal color for ethnicity, WWP. - Medical Decision Making 05/25/18 12:14 I, Teresa Patel MD, attest that this document has been prepared under my direction and personally reviewed by me in its entirety. I further attest, that it accurately reflects all work, treatment, procedures and medical decision -making performed by me. Ms. 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 over custodial completed with dialysis this morning, due to persistent epistaxis, sent to ED for further evaluation - no cp. sob, dizziness, weakness or pain, headache or other neuro sx. vitals wnl. labs and lytes, including H/H normal. ESRD with chronically elevated Cr. bleeding controlled with topical lid/epi on cotton tip and silver nitrate, see procedure note. monitored for at least 1 hour, no further bleeding episodes nasal precautions including avoiding heavy blowing or digital manipulation resume dialysis as scheduled on sunday next week ENT followup given as needed, with Dr. Shultz for epistaxis, no recurrent bleeding with clear precipitant today. Pt informed of my clinical impression, treatment recommendations and disposition plan. All questions answered to patient's satisfaction and expressed understanding and comfort with this. Reasons for returning to the ED sooner discussed with the patient otherwise, follow up with primary care physician. At the time of discharge, the patient is alert, clinically improved, tolerating po and verbalizes understanding of instructions. bleeding controlled. 05/25/18 12:18 Procedures - Additional Procedures Additional Procedures: other (left nare epistaxis, topical lidocaine and epinephrine with cottin q tip. bleeding controlled, silver nitrate topically over left nare septum, no further epistaxis. pt tolerated w/o difficulty)
== END 2018-05-25 14:22 | disposition home or self-care (01) ==
LOC: JER 09:48
PROC: 0W3Q7ZZ Control Bleeding in Respiratory Tract, Via Natural or Artificial Opening (ICD-10-PCS; principal; 2018-05-25)
DX: R04.0 Epistaxis (principal); I12.0 Hypertensive chronic kidney disease with stage 5 chronic kidney disease or end stage renal disease; E11.22 Type 2 diabetes mellitus with diabetic chronic kidney disease; N18.6 End stage renal disease; N17.8 Other acute kidney failure; Z99.2 Dependence on renal dialysis; Z79.4 Long term (current) use of insulin; Z96.641 Presence of right artificial hip joint
CPT/HCPCS: 30901-25; 36415; 80053; 85025; 85610; 99284-25

== ENCOUNTER 2018-06-22 21:45 | Emergency (ER) | payer OTHER, BC ==
--- NOTE | 2018-06-22 22:11 | PDOC ---
History of Present Illness - General Chief Complaint: Nasal Bleeding Stated Complaint: NOSE BLEEDING Time Seen by Provider: 06/22/18 21:51 History Source: Patient Exam Limitations: No Limitations - History of Present Illness Initial Comments: 06/22/18 22:05 Patient is an 83F with history of CHF, afib, ESRD on dialysis, CAD, aortic valve stenosis here today complaining of three hours of a nosebleed that onset after sneezing after completing dialysis. Patient states that she tried ice and packing her nose with tissue. Denies shortness of breath, cough, nausea, vomiting and chest pain. Denies digital manipulation of nose. Bleeding became more controlled after EMS applied direct pressure, but still was bleeding some after arrival. Patient had visit for similar issue on 05/25 where topical lidocaine/epi and silver nitrate was used to control bleeding. Past History - Past Medical History Allergies/Adverse Reactions: Allergies Allergy/AdvReac Type Severity Reaction Status Date / Time erythromycin base Allergy Verified 05/25/18 09:58 Penicillins Allergy Verified 05/25/18 09:58 verapamil [Verapamil] Allergy Verified 05/25/18 09:58 aspirin AdvReac Nausea Verified 05/25/18 10:13 AQUACEL DRESSING AdvReac Uncoded 05/25/18 09:58 Home Medications: Ambulatory Orders Ascorbic Acid [Vitamin C -] 500 mg PO DAILY 07/22/17 Cholecalciferol (Vitamin D3) [D3-2000] 2,000 unit PO DAILY 07/22/17 Cinacalcet HCl [Sensipar] 30 mg PO ASDIR 07/22/17 Furosemide [Lasix] 80 mg PO DAILY 07/22/17 Labetalol HCl 300 mg PO BID 07/22/17 Magnesium Oxide 400 mg PO DAILY 07/22/17 Mv-Min/Folic/Vit K/Lycop/Coq10 [Daily Multivitamin Capsule] 1 each PO DAILY Vitamin A Palmitate [Vitamin A] 1 tab PO DAILY 07/22/17 Levothyroxine [Synthroid -] 225 mcg PO DAILY@0700 #30 tablet 07/31/17 Aspirin Coated [Ecotrin -] 81 mg PO DAILY tablet.ec 08/01/17 Insulin Sliding Scale [Novolog Vial Sliding Scale -] 1 vial SQ BIDAC units 02/10 Polyethylene Glycol 3350 [Miralax 119 gm Btl -] 17 gm PO DAILY PRN bottle 08/01 Pantoprazole Sodium [Protonix] 40 mg PO DAILY #0 cap 08/23/17 Cardiac Disorders: Yes (A-FIB 2000) COPD: No Diabetes: Yes Dialysis: Yes () HTN: Yes Hypercholesterolemia: Yes Thyroid Disease: Yes - Surgical History Cardiac Surgery: Yes Orthopedic Surgery: (Yes; right hip surgery) - Suicide/Smoking/Psychosocial Hx Smoking Status: No Smoking History: Never smoked Have you smoked in the past 12 months: No Number of Cigarettes Smoked Daily: 0 Information on smoking cessation initiated: No Hx Alcohol Use: No Drug/Substance Use Hx: No Substance Use Type: None Hx Substance Use Treatment: No Review of Systems - Review of Systems Comments:: 06/22/18 22:11 GENERAL/CONSTITUTIONAL: No fever or chills. No weakness. HEAD, EYES, EARS, NOSE AND THROAT: No change in vision. No ear pain or discharge. No sore throat. +nosebleed CARDIOVASCULAR: No chest pain or shortness of breath RESPIRATORY: No cough, wheezing, or hemoptysis. GASTROINTESTINAL: No nausea, vomiting, diarrhea or constipation. GENITOURINARY: No dysuria, frequency, or change in urination. MUSCULOSKELETAL: No joint or muscle swelling or pain. No neck or back pain. SKIN: No rash NEUROLOGIC: No headache, vertigo, loss of consciousness, or change in strength/ sensation. ENDOCRINE: No increased thirst. No abnormal weight change HEMATOLOGIC/LYMPHATIC: No anemia, easy bleeding, or history of blood clots. ALLERGIC/IMMUNOLOGIC: No hives or skin allergy. *Physical Exam - Vital Signs Last Vital Signs Temp Pulse Resp BP Pulse Ox 97.8 F 101 H 18 127/85 96 06/22/18 21:45 06/22/18 21:45 06/22/18 21:45 06/22/18 21:45 06/22/18 21:45 - Physical Exam Comments: 06/22/18 22:12 GENERAL: Awake, alert, and fully oriented, in no acute distress HEAD: No signs of trauma, normocephalic, atraumatic EYES: PERRLA, EOMI, sclera anicteric, conjunctiva clear ENT: Auricles normal inspection, hearing grossly normal, oropharynx shows clot. Moist mucosa. Blood over medial left nare with no active bleeding. NECK: Normal ROM, supple, no lymphadenopathy, JVD, or masses LUNGS: No distress, speaks full sentences, clear to auscultation bilaterally HEART: Regular rate and rhythm, normal S1 and S2, no murmurs, rubs or gallops, peripheral pulses normal and equal bilaterally. ABDOMEN: Soft, nontender, normoactive bowel sounds. No guarding, no rebound. No masses EXTREMITIES: Normal inspection, Normal range of motion, no edema. No clubbing or cyanosis. NEUROLOGICAL: Cranial nerves II through XII grossly intact. Normal speech, no focal sensorimotor deficits SKIN: Warm, Dry, normal turgor, no rashes or lesions noted. Medical Decision Making - Medical Decision Making 06/22/18 22:13 Patient is 83F with history of CHF, afib, ESRD, CAD, aortic valve stenosis here today with epistaxis. Vitals show slight tachycardia, otherwise normal. Bleeding has resolved. Will evaluate with EKG. Considered doing blood work, but labs showed no bleeding diathesis 1 month ago and bleeding has resolved. 06/22/18 23:15 EKG shows normal sinus rhythm with very poor baseline. ST depressions in V5/V6, similar to prior EKGs. Normal axis. Normal intervals. Interpretation limited by baseline. 5.5 rhino rocket placed after bleeding resumed. Given tylenol for pain and instructed to follow up with ENT, return precautions given. *DC/Admit/Observation/Transfer Diagnosis at time of Disposition: Epistaxis - Discharge Dispostion Disposition: HOME Condition at time of disposition: Good Decision to Admit order: No - Referrals Referrals: Suresh Shultz MD [Staff Physician] - - Patient Instructions Printed Discharge Instructions: DI for Nosebleed Additional Instructions: Please call ENT tomorrow to set up an appointment. Please return if you have any new, worsening or concerning symptoms, especially increased bleeding. - Post Discharge Activity
[2018-06-22 22:12] VITALS: BMI 22.6
--- NOTE | 2018-06-22 22:45 | PDOC ---
Attending Attestation - HPI HPI: 06/22/18 22:45 The patient is an 83-year-old female with past medical history significant for CHF Atrial fibrillation (on baby ASA), DM, 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, CAD, HTN, NonRheumatic Aortic (Valve) Stenosis, S/P hip replacement presents to the emergency department with 3 hours of L. nare nose bleeding. The patient reports the bleeding started after she sneezed. The patient used tissues to apply pressure to the area. The patient was seen at the ED on for nose bleeding, which was controlled with topical lid/epi on a cotton tip and silver nitrate. Allergies: erythromycin base, Penicillins, verapamil, AQUACEL DRESSING 06/22/18 23:20 - Physicial Exam PE: 06/22/18 23:20 GENERAL: Awake, alert, and fully oriented, in no acute distress HEAD: No signs of trauma EYES: PERRLA, EOMI, sclera anicteric, conjunctiva clear ENT: +Behind uvula between the tonsils a large blood clots is present. Moist mucosa NECK: Normal ROM, supple, no lymphadenopathy, JVD, or masses LUNGS: Breath sounds equal, clear to auscultation bilaterally. No wheezes, and no crackles HEART: Regular rate and rhythm, normal S1 and S2, no murmurs, rubs or gallops ABDOMEN: Soft, nontender, No guarding, no rebound. No masses EXTREMITIES: (+) L. arm AV graft. Normal range of motion, no edema. No cords, erythema, or tenderness SKIN: Warm, Dry, normal turgor, no rashes or lesions noted. - Medical Decision Making 06/22/18 22:56 Documentation prepared by Ольга Madera, acting as medical reception specialist for Claribel Fernandez MD. <Ольга Madera - Last Filed: 06/22/18 23:20> - Resident Resident Name: Carlos Espinosa - ED Attending Attestation I have performed the following: I have examined & evaluated the patient, The case was reviewed & discussed with the resident, I agree w/resident's findings & plan - Medical Decision Making 06/22/18 23:42 We suctioned a 20 ml large blood clot from pt's pharynx and posterior nasal passages - removed with forceps by myself. Pt then blew her nose. She has no blood going down the back of her throat, she was bleeding actively however, so we placed a 5.5 Rhino rocket with sterile technique. 10 CC inflation placed in the balloon, and pt is hemodynamically stable and she is able to tolerate the pain/[place]om[place] of the rhino rocket. <Claribel Fernandez - Last Filed: 06/22/18 23:43>
[2018-06-22] MEDS ORDERED: ACETAMINOPHEN 325 MG TABLET (FP) PO ONE (23:14)
[2018-06-22] MEDS ORDERED: ACETAMINOPHEN 325 MG TABLET (FP) ONE (23:42)
[2018-06-23 02:36] VITALS: BP 111/51; PULSE 103; TEMP 98.1
--- NOTE | 2018-06-23 13:58 | EKG ---
Test Reason : Blood Pressure : / mmHG Vent. Rate : 103 BPM Atrial Rate : 106 BPM P-R Int : 000 ms QRS Dur : 084 ms QT Int : 368 ms P-R-T Axes : 000 049 170 degrees QTc Int : 482 ms POOR DATA QUALITY, INTERPRETATION MAY BE ADVERSELY AFFECTED UNDETERMINED RHYTHM MARKED ST ABNORMALITY, POSSIBLE LATERAL SUBENDOCARDIAL INJURY ABNORMAL ECG WHEN COMPARED WITH ECG OF 14-AUG-2017 14:48, CURRENT UNDETERMINED RHYTHM PRECLUDES RHYTHM COMPARISON, NEEDS REVIEW CRITERIA FOR SEPTAL INFARCT ARE NO LONGER PRESENT Confirmed by MD Issa, Omkar ([id number]) on 06/23/2018 1:58:32 PM Referred By: Confirmed By:Omkar Parsons MD
== END 2018-06-23 00:28 | disposition home or self-care (01) ==
LOC: JER 21:45
PROC: 093K7ZZ Control Bleeding in Nasal Mucosa and Soft Tissue, Via Natural or Artificial Opening (ICD-10-PCS; principal; 2018-06-22)
DX: R04.0 Epistaxis (principal); I13.2 Hypertensive heart and chronic kidney disease with heart failure and with stage 5 chronic kidney disease, or end stage renal disease; E11.22 Type 2 diabetes mellitus with diabetic chronic kidney disease; N18.6 End stage renal disease; I50.9 Heart failure, unspecified; N17.8 Other acute kidney failure; Z99.2 Dependence on renal dialysis; Z79.4 Long term (current) use of insulin; I48.91 Unspecified atrial fibrillation; Z79.01 Long term (current) use of anticoagulants; I35.0 Nonrheumatic aortic (valve) stenosis; Z88.1 Allergy status to other antibiotic agents; Z88.8 Allergy status to other drugs, medicaments and biological substances; E03.9 Hypothyroidism, unspecified
CPT/HCPCS: 30901-25; 93005; 93010; 99284-25

== ENCOUNTER 2019-01-21 08:57 | Inpatient (IN) | payer OTHER, BC | END 2019-01-24 17:16 | LOC: JER 08:57 → JERBED 16:02 → J7W 17:39 ==

== ENCOUNTER 2019-02-11 08:21 | Inpatient (IN) | payer OTHER, BC ==
[2019-02-11] MEDS ORDERED: VANCOMYCIN 1 GM in D5W (PRE-DOCKED) 1,000 MG/250 ML IVPB ONE (09:19)
[2019-02-11] MEDS ORDERED: CEFEPIME HCL/D5W 1 GM/50 ML BAG IVPB ONE (09:19)
--- NOTE | 2019-02-11 09:37 | PDOC ---
History of Present Illness - General Chief Complaint: Blood Pressure Problem Stated Complaint: HTN Time Seen by Provider: 02/11/19 08:33 History Source: Patient Exam Limitations: No Limitations - History of Present Illness Initial Comments: 02/11/19 09:28 83 y/o F with PMHx of systolic and diastolic CHF, AFib (previously on AC, stopped due to GI bleeding), DM, Hyperparathyroidism, ESRD on HD ([facility]), CAD s/p Cardiac stent x1, HTN, Aortic Stenosis was BIBEMS due to hypotension. Patient was in her usual state of health this morning and went to [facility] for HD where she was found to be hypotensive to the 70-80s/50s. She mentions she is usually normotensive to the 120s/80s and this is the first time she is hypotensive. Patient did not receive HD this AM and her last HD was Sunday. Patient mentions that recently, she has had a cough productive of white sputum, that is currently nonproductive. She was prescribed an ABx but has not started yet. Additionally endorses chronic constipation. Denies any recent trauma, travel, sick contacts or recent medication changes. Denies any Fevers, chills, weakness, chest pain, SOB, nausea, vomiting, diarrhea , dysuria. PCP: Dr. Bolaños PMHx: As above PSHx: Right Total Hip replacement, Cardiac stent Allergies: Erythromycin, PCN, Verapamil Social: Former smoker (quit in 1979), Denies EtOH or Drug use, Resident of [facility] FHx: Noncontributory Past History - Past Medical History Allergies/Adverse Reactions: Allergies Allergy/AdvReac Type Severity Reaction Status Date / Time erythromycin base Allergy Severe Swelling Verified 02/11/19 08:30 Penicillins Allergy Severe Swelling Verified 02/11/19 08:30 verapamil [Verapamil] Allergy Severe Swelling Verified 02/11/19 08:30 aspirin AdvReac Nausea Verified 02/11/19 08:30 AQUACEL DRESSING AdvReac Severe Rash Uncoded 02/11/19 08:30 Home Medications: Ambulatory Orders Cinacalcet HCl [Sensipar] 30 mg PO ASDIR 07/22/17 Furosemide [Lasix] 80 mg PO DAILY 07/22/17 Labetalol HCl 300 mg PO BID 07/22/17 Magnesium Oxide 400 mg PO DAILY 07/22/17 Aspirin Coated [Ecotrin -] 81 mg PO DAILY tablet.ec 08/01/17 Folic Acid/Vit B Complex and C [Dialyvite 800 Tablet] 0.8 mg PO DAILY 01/21/19 Insulin (Novolog 70/30) [Novolog Mix 70/30 Vial -] 8 ml SQ ASDIR 01/21/19 Insulin Sliding Scale [Novolog Vial Sliding Scale -] 6 units SQ AM 01/21/19 Levothyroxine [Synthroid -] 175 mcg PO ASDIR 01/21/19 Cardiac Disorders: Yes (A-FIB 2000) COPD: No CHF: Yes Diabetes: Yes Dialysis: Yes GI Disorders: Yes (ESRD) HTN: Yes Hypercholesterolemia: Yes Thyroid Disease: Yes - Surgical History Cardiac Surgery: Yes Orthopedic Surgery: Yes (Yes; right hip surgery) - Suicide/Smoking/Psychosocial Hx Smoking Status: No Smoking History: Former smoker Have you smoked in the past 12 months: No Number of Cigarettes Smoked Daily: 0 Information on smoking cessation initiated: No Hx Alcohol Use: No Drug/Substance Use Hx: No Substance Use Type: None Hx Substance Use Treatment: No Review of Systems - Review of Systems Constitutional: No: Chills, Fever, Night Sweats HEENTM: No: Blurred Vision, Throat Pain Respiratory: Yes: Cough (Initially productive of white sputum). No: Shortness of Breath Cardiac (ROS): Yes: Edema. No: Chest Pain, Lightheadedness, Palpitations ABD/GI: Yes: Constipated (Chronic). No: Diarrhea, Nausea, Vomiting : No: Dysuria, Hematuria Neurological: No: Headache, Numbness, Tingling *Physical Exam - Vital Signs Last Vital Signs Temp Pulse Resp BP Pulse Ox 93.9 F L 59 L 18 87/59 L 100 02/11/19 09:08 02/11/19 09:08 02/11/19 09:08 02/11/19 09:08 02/11/19 09:08 - Physical Exam General Appearance: Yes: Nourished, Appropriately Dressed HEENT: positive: EOMI, LOIS. negative: Pharyngeal Erythema, Tonsillar Exudate, Rhinorrhea, Sinus Tenderness Neck: positive: Supple Respiratory/Chest: positive: Rhonchi (At the b/l bases). negative: Respiratory Distress, Crackles, Wheezing Cardiovascular: positive: S1, S2, Edema, Murmur ( Murmur), Irregularly Irregular. negative: JVD Gastrointestinal/Abdominal: positive: Normal Bowel Sounds, Soft. negative: Distended, Guarding, Rebound, Tenderness Musculoskeletal: negative: CVA Tenderness Extremity: positive: Swelling (2+ B/L), Other (Left Upper extremity AV Fistula) Integumentary: positive: Other (Stage 1 healing ulcer over the gluteal fold) Neurologic: positive: digital sales planner II-XII NML intact, Fully Oriented, Alert ED Treatment Course - LABORATORY CBC & Chemistry Diagram: 02/11/19 09:50 02/11/19 09:12 Medical Decision Making - Medical Decision Making 02/11/19 09:37 83 y/o F with PMHx of systolic and diastolic CHF, AFib (previously on AC, stopped due to GI bleeding), DM, Hyperparathyroidism, ESRD on HD ([facility]), CAD s/p Cardiac stent x1, HTN, Aortic Stenosis was BIBEMS due to hypotension. Concern for underlying sepsis given hypothermia, hypotensive with MAP >65. Will Check VBG, CBC, CMP, mag, phos, Lactic acid, Trop, UA, Urine and blood Cx, CXR, EKG reveals AFib with Incomplete RBBB, No ST segment changes, VR 64, QTc 447 Start Vanco 1g and Cefepime 1g; No zosyn in the setting of PCN allergy. Hold IVF hydration given LE Edema and concern for fluid overload. Ongoing assessment. 02/11/19 10:43 VBG reveals pH 7.09. Will check ABG. Other Labs pending. Give Duoneb. Order Bipap. 02/11/19 10:55 CXR reveals b/l pleural effusions R>L, possibly due to fluid overload Will start dopamine drip peripherally as MAP continues to drop < 65. Consult Renal (Dr. Yeboah) for possible HD today. QSofa score 1 however given increasing pressore requirement, will consult critical care. 02/11/19 11:41 Dr. Rodriguez consented patient for Central line placement. Signout given to Dr. Brittni Bolaños (PCP) and Dr. Grijalva (ICU). Signed out to Dr. Holt. Pending call back from Dr. Yeboah. *DC/Admit/Observation/Transfer Diagnosis at time of Disposition: Congestive heart failure (CHF) Qualifiers: Heart failure type: unspecified Heart failure chronicity: acute on chronic Qualified Code(s): I50.9 - Heart failure, unspecified Sepsis Qualifiers: Sepsis type: sepsis due to unspecified organism Qualified Code(s): A41.9 - Sepsis, unspecified organism - Discharge Dispostion Decision to Admit order: Yes - Referrals Referrals: Brittni Bolaños MD [Primary Care Provider] - - Patient Instructions - Post Discharge Activity
[2019-02-11] MEDS ORDERED: ALBUTEROL SO4 2.5/IPRATROPIUM 0.5 INH SOL 3 ML VIAL.NEB. NEB ONE (09:40)
--- NOTE | 2019-02-11 09:52 | PDOC ---
Documentation entered by Rayshawn Verdin SCRIBE, acting as scribe for Marely Caputo MD. Marely Caputo MD: This documentation has been prepared by the Lambert melo Xhesika, SCRIBE, under my direction and personally reviewed by me in its entirety. I confirm that the documentation accurately reflects all work, treatment, procedures, and medical decision making performed by me. Attending Attestation - Resident Resident Name: Taylor Chilel - HPI HPI: 02/11/19 09:26 The patient is an 83 year old female, from [facility], with a significant past medical history of systolic and diastolic CHF (w/reduced LV function), atrial fibrillation, DM, NYHA class 4, Hyperparathyroidism, ESRD (on dialysis //SUN ) CAD, HTN, NonRheumatic Aortic (Valve) Stenosis ( s/p hip replacement), who presents to the emergency department, from dialysis for evaluation of low blood pressure. Patient was in dialysis this morning when the staff noticed her BP was in her 70-80s/50's (normally in the 120's/80's) and was brought to the ED for further evaluation. Patient states she did not get her dialysis due to her low BP, however, her last dialysis was Sunday. The patient states she has been endorsing chronic constipation, productive cough with white sputum (was suppose to start antibiotics today, but did not), decreased PO intake and decreased urination, secondary to her productive cough. Denies numbness/tingling in extremities, chest pain, shortness of breath, headache, and dizziness. Denies fevers, chills, nausea, and vomiting. Allergies: erythromycin base, penicillins, verapamil, aquacel dressing, aspirin Social History: No reported alcohol, cigarette, or drug use. Surgical History: Cardiac, Total Hip Replacement PCP: Dr. Brittni Bolaños Biological Photographer: Dr. Celeste Shha Vascular Surgeon: Dr. Watson - Physicial Exam PE: 02/11/19 09:30 GENERAL: Awake, alert, and fully oriented, in no acute distress HEAD: No signs of trauma EYES: PERRLA, EOMI, sclera anicteric, conjunctiva clear ENT: Auricles normal inspection, hearing grossly normal, nares patent, oropharynx clear without exudates. Moist mucosa NECK: Normal ROM, supple, no lymphadenopathy, JVD, or masses LUNGS: (+) diffuse rhonchi. (+) mildly tachypnea. Breath sounds equal, clear to auscultation bilaterally. No wheezes, and no crackles HEART: (+) irregular rate and rhythm, normal S1 and S2, no murmurs, rubs or gallops ABDOMEN: Soft, nontender, normoactive bowel sounds. No guarding, no rebound. No masses EXTREMITIES: (+) 2+ pitting edema to the knee. Normal range of motion. No clubbing or cyanosis. No cords, erythema, or tenderness NEUROLOGICAL: Cranial nerves II through XII grossly intact. Normal speech. SKIN: Warm, Dry, normal turgor, no rashes or lesions noted. - Critical Care Time Total Critical Care Time: 40 Critical Care Statement: The care of this patient involved high complexity decision making to prevent further life threatening deterioration of the patient 's condition and/or to evaluate & treat vital organ system(s) failure or risk of failure. - Medical Decision Making 02/11/19 10:04 Pt presents to the ED after sent in from HD secondary to low blood pressure. Found to be hypotensive and hypothermic on arrival to the ED, with MAP of 69. Concern for sepsis, less likely CHF, less likely overmedication. Broad spectrum antibiotics started. Patient is edematous, with diffuse rhonchi on exam, so will hold off on fluid resuscitation. MAP is >65, so will not start pressors for now. 02/11/19 11:01 Pt found to be hypercarbic, with VBG PCO2 of 88 and Ph of 7.09. Will check ABG , start on bipap. MAP is now 55. Will start dopamine prior to starting on bipap to protect against worsening hypotension. CXR shows large effusion, which may be secondary to fluid overload. Will treat with bipap. Will not perform thoracentesis at this time, since patient is oxygenating well and effusion may resolve when patient is able to tolerate HD. Will consult renal and critical care.
[2019-02-11] MEDS ORDERED: VANCOMYCIN 1 GRAM (PRE-DOCKED) 1,000 MG/250 ML BAG IVPB ONE (10:16)
[2019-02-11] MEDS ORDERED: CEFEPIME 1 GM/100 ML BAG IVPB ONE (10:16)
[2019-02-11 10:25] LABS: BASO % 0.6 % (0-2.0); EOS % 1.9 % (0-4.5); HEMATOCRIT 37.4 % (32.4-45.2); HEMOGLOBIN 11.9 GM/dL (10.7-15.3); LYMPH % 20.6 % (8-40); MCH 34.2 pg (25.7-33.7); MCHC 31.7 g/dl (32.0-36.0); MEAN PLT VOLUME 9.7 fl (7.5-11.1); NEUT % 68.9 % (42.8-82.8); PLATELET COUNT 69 K/MM3 (134-434); RBC 3.47 M/mm3 (3.60-5.2); RDW 17.6 % (11.6-15.6); WHITE BLOOD COUNT 2.9 K/mm3 (4.0-10.0)
[2019-02-11 10:26] LABS: VENOUS PO2 43.4 mmHg (30-40)
[2019-02-11 10:37] LABS: VENOUS PC02 88.6 mmHg (41-51); VENOUS PH 7.09 (7.31-7.41)
[2019-02-11 10:39] LABS: INR 0.99 (0.83-1.09); PROTHROMBIN TIME (PATIENT) 11.7 SEC (9.7-13.0)
[2019-02-11 10:41] LABS: ACTIVATED PTT 32.2 SECONDS (25.2-36.5)
[2019-02-11 10:58] LABS: BILIRUBIN,TOTAL 0.8 mg/dL (0.2-1); BLOOD UREA NITROGEN 56.8 mg/dL (7-18); CALCIUM 8.9 mg/dL (8.5-10.1); CREATININE 4.5 mg/dL (0.55-1.3); MAGNESIUM 2.5 mg/dL (1.8-2.4); PHOSPHOROUS 4.7 mg/dL (2.5-4.9); POTASSIUM 4.1 mmol/L (3.5-5.1); TOT PROT 7.6 g/dl (6.4-8.2)
[2019-02-11] MEDS ORDERED: DOPAMINE HCL 400,000 MCG in SODIUM CHLORIDE 240 ML IV SCH (11:00)
[2019-02-11] MEDS ORDERED: DOPAMINE 400 MG/D5W - 400,000 MCG/250 ML INFUS.BAG IVPB ONE (11:05)
[2019-02-11 11:13] LABS: CARBOXYHEMOGLOBIN 1.3 % (0-2)
[2019-02-11 11:15] LABS: ARTERIAL BLOOD GAS PO2 147 mmHg (80-105)
[2019-02-11 11:16] LABS: ALLENS TEST POSITIVE; ARTERIAL BLD GAS O2 SATURATION 98.2 % (95-98); ARTERIAL BLOOD GAS BASE EXCESS -6.9 meq/l (-2-2)
[2019-02-11 11:18] LABS: ARTERIAL BLOOD GAS PCO2 84.8 mmHg (35-45)
--- NOTE | 2019-02-11 12:06 | EKG ---
Test Reason : Blood Pressure : / mmHG Vent. Rate : 064 BPM Atrial Rate : 277 BPM P-R Int : 000 ms QRS Dur : 106 ms QT Int : 434 ms P-R-T Axes : 000 086 185 degrees QTc Int : 447 ms POOR DATA QUALITY, INTERPRETATION MAY BE ADVERSELY AFFECTED ATRIAL FIBRILLATION INCOMPLETE RIGHT BUNDLE BRANCH BLOCK ANTEROSEPTAL INFARCT , AGE UNDETERMINED ABNORMAL ECG Confirmed by MD OG, JENNYFER ([id number]) on 02/11/2019 12:06:08 PM Referred By: Confirmed By:JENNYFER FOLEY MD
--- NOTE | 2019-02-11 12:18 | PDOC ---
*Physical Exam - Vital Signs Last Vital Signs Temp Pulse Resp BP Pulse Ox 93.9 F L 69 18 86/47 L 96 02/11/19 09:08 02/11/19 11:46 02/11/19 11:46 02/11/19 11:46 02/11/19 11:46 - Physical Exam Comments: 02/11/19 12:15 Patient's care endorsed to me by Dr. Chilel. 83YOF with complex PMH who was at her HD clinic and could not get treatment there because she was hypotensive, was sent here instead. Patient denies symptoms and is a/o x4, just a little tired. She is getting CVC placed and is already admitted, going to ICU. Peripheral dopamine will be switched to CVC before she goes pending confirmatory CXR. ED Treatment Course - LABORATORY CBC & Chemistry Diagram: 02/13/19 06:50 02/13/19 06:50 - ADDITIONAL ORDERS Additional order review: Laboratory Results 02/11/19 02/11/19 02/11/19 10:50 10:43 09:50 PT with INR INR PTT (Actin FS) Anticoagulation Therapy No Result Required. Puncture Site Right radial ABG pH 7.00 L* ABG pCO2 at Pt Temp 84.8 H* ABG pO2 at Pt Temp 147 H ABG HCO3 24.4 ABG O2 Sat (Measured) 98.2 H ABG O2 Content 15.5 ABG Base Excess -6.9 L Jp Test Positive VBG pH 7.09 L* POC VBG pCO2 88.6 H* POC VBG pO2 43.4 H VBG HCO3 25.5 VBG O2 Sat (Juan) 67.8 L VBG Base Excess -6.5 L Carboxyhemoglobin 1.3 Methemoglobin 0.5 O2 Delivery Device No Result Required. Oxygen Flow Rate Yes Vent Mode No Result Required. Vent Rate No Result Required. Mechanical Rate No Result Required. Pressure Support Vent No Result Required. Sodium Potassium Chloride Carbon Dioxide Anion Gap BUN Creatinine Est GFR (CKD-EPI)AfAm Est GFR (CKD-EPI)NonAf Random Glucose Lactic Acid Calcium Phosphorus Magnesium Total Bilirubin AST ALT Alkaline Phosphatase Creatine Kinase Troponin I Total Protein Albumin TSH 02/11/19 02/11/19 02/11/19 09:50 09:50 09:12 PT with INR 11.70 INR 0.99 PTT (Actin FS) 32.2 Anticoagulation Therapy Puncture Site ABG pH ABG pCO2 at Pt Temp ABG pO2 at Pt Temp ABG HCO3 ABG O2 Sat (Measured) ABG O2 Content ABG Base Excess Jp Test VBG pH POC VBG pCO2 POC VBG pO2 VBG HCO3 VBG O2 Sat (Juan) VBG Base Excess Carboxyhemoglobin Methemoglobin O2 Delivery Device Oxygen Flow Rate Vent Mode Vent Rate Mechanical Rate Pressure Support Vent Sodium 133 L Potassium 4.1 Chloride 98 Carbon Dioxide 26 Anion Gap 10 BUN 56.8 H Creatinine 4.5 H Est GFR (CKD-EPI)AfAm 9.93 Est GFR (CKD-EPI)NonAf 8.57 Random Glucose 83 Lactic Acid 0.9 Calcium 8.9 Phosphorus 4.7 Magnesium 2.5 H Total Bilirubin 0.8 AST 24 ALT 12 L Alkaline Phosphatase 177 H Creatine Kinase 30 Troponin I 0.03 Total Protein 7.6 Albumin 3.0 L TSH 0.11 L 02/11/19 09:50 RBC 3.47 L MCV 108.0 H MCHC 31.7 L RDW 17.6 H MPV 9.7 Neutrophils % 68.9 Lymphocytes % 20.6 Monocytes % 8.0 Eosinophils % 1.9 Basophils % 0.6 - Medications Given in the ED: ED Medications Discontinued Medications Generic Name Dose Route Start Last Admin Trade Name Freq PRN Reason Stop Dose Admin Albuterol/Ipratropium 1 amp 02/11/19 09:40 02/11/19 10:47 Duoneb - NEB 02/11/19 09:41 1 amp ONCE ONE Administration Cefepime HCl 1 gm in 50 mls @ 100 mls/hr 02/11/19 09:19 02/11/19 10:18 Maxipime 1 Gm Premix Ivpb IVPB 02/11/19 09:48 100 mls/hr ONCE ONE Administration Vancomycin HCl 1,000 mg 02/11/19 09:19 02/11/19 11:33 Vancomycin (Pre-Docked) IVPB 02/11/19 09:20 1,000 mg ONCE ONE Administration Protocol Medical Decision Making - Medical Decision Making 02/11/19 12:52 Vital Signs Temperature 93.9 F L 02/11/19 09:08 Pulse Rate 67 02/11/19 12:21 Respiratory Rate 18 02/11/19 12:21 Blood Pressure 92/47 L 02/11/19 12:21 O2 Sat by Pulse Oximetry (%) 94 L 02/11/19 12:21 *DC/Admit/Observation/Transfer Diagnosis at time of Disposition: Congestive heart failure (CHF) Qualifiers: Heart failure type: unspecified Heart failure chronicity: acute on chronic Qualified Code(s): I50.9 - Heart failure, unspecified Sepsis Qualifiers: Sepsis type: sepsis due to unspecified organism Qualified Code(s): A41.9 - Sepsis, unspecified organism - Discharge Dispostion Condition at time of disposition: Guarded Decision to Admit order: Yes - Referrals - Patient Instructions - Post Discharge Activity Procedures - Central Line Central Line Lumen: triple Central Line Position: internal jugular (R) Anesthesia: 1% Lidocaine Amount of anesthesia (ccs): 7 Complications: none Post Central Line Insertion: sutured, good blood return, position confirmed w/ CXR Progress: 02/11/19 12:39 Patient tolerated well.
[2019-02-11 12:59] LABS: URINE APPEARANCE CLOUDY; URINE COLOR YELLOW
[2019-02-11 13:05] LABS: EPI CELLS FEW /HPF (0-5/HPF); URINE BACTERIA MANY /hpf (NEGATIVE); URINE RBC 5 /hpf (0-4); URINE WBC >100 /hpf (0-5)
--- NOTE | 2019-02-11 13:16 | CONSULT ---
Consultation: REQUESTING PROVIDER: CONSULT REQUEST: We have been asked to medically evaluate this patient for ( specify). HISTORY OF PRESENT ILLNESS: 83 y/o female with PMH of HTN, DM, ESRD (//), Afib (not on AC in light of previous GI bleed), CHF, CAD s/p stents presented to the ED form the dialysis center due to hypotension. Patient states that she is always normotensive (with her BPs ranging in the 120's/80's) and in the dialysis center she was noted to be in the 70's/50's- so she was brought to the ER. In the ER, ABG was done showing PH 7.00, PCO2 84,8 and she was placed on BIPAP. she has been feeling well however, denies any fevers/chills, endorses having had a productive cough with white sputum the past week. she never actually received her dialysis today as she was too hypotensive before it started. REVIEW OF SYSTEMS: CONSTITUTIONAL: Absent: fever, chills, diaphoresis, generalized weakness, malaise, loss of appetite, weight change HEENT: Absent: rhinorrhea, nasal congestion, throat pain, throat swelling, difficulty swallowing, mouth swelling, ear pain, eye pain, visual changes CARDIOVASCULAR: Present: peripheral edema Absent: chest pain, syncope, palpitations, irregular heart rate, lightheadedness, RESPIRATORY: Present: cough Absent: shortness of breath, dyspnea with exertion, orthopnea, wheezing, stridor, hemoptysis GASTROINTESTINAL: Absent: abdominal pain, abdominal distension, nausea, vomiting, diarrhea, constipation, melena, hematochezia GENITOURINARY: Absent: dysuria, frequency, urgency, hesitancy, hematuria, flank pain, genital pain MUSCULOSKELETAL: Absent: myalgia, arthralgia, joint swelling, back pain, neck pain SKIN: Absent: rash, itching, pallor HEMATOLOGIC/IMMUNOLOGIC: Absent: easy bleeding, easy bruising, lymphadenopathy, frequent infections ENDOCRINE: Absent: unexplained weight gain, unexplained weight loss, heat intolerance, cold intolerance NEUROLOGIC: Absent: headache, focal weakness or paresthesias, dizziness, unsteady gait, seizure, mental status changes, bladder or bowel incontinence PSYCHIATRIC: Absent: anxiety, depression, suicidal or homicidal ideation, hallucinations. PHYSICAL EXAMINATION Vital Signs - 24 hr 02/11/19 02/11/19 02/11/19 08:31 09:08 09:30 Temperature 93.9 F L Pulse Rate 58 L Pulse Rate [ 59 L 65 Apical] Respiratory 20 18 20 Rate Blood Pressure 84/53 L Blood Pressure 87/59 L 86/47 L [Right] O2 Sat by Pulse 98 100 96 Oximetry (%) 02/11/19 02/11/19 02/11/19 10:15 11:17 11:46 Temperature Pulse Rate Pulse Rate [ 69 69 Apical] Respiratory 18 18 Rate Blood Pressure Blood Pressure 91/42 L 86/47 L [Right] O2 Sat by Pulse 96 99 96 Oximetry (%) 02/11/19 12:21 Temperature Pulse Rate Pulse Rate [ 67 Apical] Respiratory 18 Rate Blood Pressure Blood Pressure 92/47 L [Right] O2 Sat by Pulse 94 L Oximetry (%) GENERAL: Awake, alert, and fully oriented, in no acute distress EYES: PEERLA; EOMI; no scleral icterus NECK: no JVD; no lymphadenipathy LUNGS: poor air entry; fine rales noted at the left base HEART: irregularly irregular; bradycardic normal S1 and S2 without murmur, rub or gallop. ABDOMEN: Soft, nontender, not distended, normoactive bowel sounds, no guarding, no rebound, no masses. No hepatomegaly or splenomegaly. MUSCULOSKELETAL: Normal range of motion at all joints. No bony deformities or tenderness. No CVA tenderness. EXTREMITIES: warm; well-perfused 2+ pitting edema B/L NEUROLOGICAL: Cranial nerves II-XII intact. Normal speech. Normal gait. PSYCHIATRIC: Cooperative. Good eye contact. Appropriate mood and affect. SKIN: Warm, dry, normal turgor, no rashes or lesions noted. Laboratory Results - last 24 hr 02/11/19 02/11/19 02/11/19 09:12 09:50 09:50 WBC 2.9 L RBC 3.47 L Hgb 11.9 Hct 37.4 MCV 108.0 H MCH 34.2 H MCHC 31.7 L RDW 17.6 H Plt Count 69 L MPV 9.7 Absolute Neuts (auto) 2.0 Neutrophils % 68.9 Lymphocytes % 20.6 Monocytes % 8.0 Eosinophils % 1.9 Basophils % 0.6 Nucleated RBC % 2 H PT with INR INR PTT (Actin FS) Anticoagulation Therapy Puncture Site ABG pH ABG pCO2 at Pt Temp ABG pO2 at Pt Temp ABG HCO3 ABG O2 Sat (Measured) ABG O2 Content ABG Base Excess Jp Test VBG pH POC VBG pCO2 POC VBG pO2 VBG HCO3 VBG O2 Sat (Juan) VBG Base Excess Carboxyhemoglobin Methemoglobin O2 Delivery Device Oxygen Flow Rate Vent Mode Vent Rate Mechanical Rate Pressure Support Vent Sodium 133 L Potassium 4.1 Chloride 98 Carbon Dioxide 26 Anion Gap 10 BUN 56.8 H Creatinine 4.5 H Est GFR (CKD-EPI)AfAm 9.93 Est GFR (CKD-EPI)NonAf 8.57 Random Glucose 83 Lactic Acid Calcium 8.9 Phosphorus 4.7 Magnesium 2.5 H Total Bilirubin 0.8 AST 24 ALT 12 L Alkaline Phosphatase 177 H Creatine Kinase 30 Troponin I 0.03 Total Protein 7.6 Albumin 3.0 L TSH 0.11 L Urine Color Yellow Urine Appearance Cloudy Urine pH Ur Specific [place] Urine Protein Urine Glucose (UA) Urine Ketones Urine Blood Urine Nitrite Urine Bilirubin Urine Urobilinogen Ur Leukocyte Esterase Urine WBC (Auto) >100 Urine RBC (Auto) 5 Urine Casts (Auto) No Result Required. U Pathogenic Cast Auto No Result Required. U Epithel Cells (Auto) Few U Sm Round Cell (Auto) No Result Required. Urine Crystals (Auto) No Result Required. Urine Bacteria (Auto) Many 02/11/19 02/11/19 02/11/19 09:50 09:50 09:50 WBC RBC Hgb Hct MCV MCH MCHC RDW Plt Count MPV Absolute Neuts (auto) Neutrophils % Lymphocytes % Monocytes % Eosinophils % Basophils % Nucleated RBC % PT with INR 11.70 INR 0.99 PTT (Actin FS) 32.2 Anticoagulation Therapy Puncture Site ABG pH ABG pCO2 at Pt Temp ABG pO2 at Pt Temp ABG HCO3 ABG O2 Sat (Measured) ABG O2 Content ABG Base Excess Jp Test VBG pH 7.09 L* POC VBG pCO2 88.6 H* POC VBG pO2 43.4 H VBG HCO3 25.5 VBG O2 Sat (Juan) 67.8 L VBG Base Excess -6.5 L Carboxyhemoglobin Methemoglobin O2 Delivery Device Oxygen Flow Rate Vent Mode Vent Rate Mechanical Rate Pressure Support Vent Sodium Potassium Chloride Carbon Dioxide Anion Gap BUN Creatinine Est GFR (CKD-EPI)AfAm Est GFR (CKD-EPI)NonAf Random Glucose Lactic Acid 0.9 Calcium Phosphorus Magnesium Total Bilirubin AST ALT Alkaline Phosphatase Creatine Kinase Troponin I Total Protein Albumin TSH Urine Color Urine Appearance Urine pH Ur Specific [place] Urine Protein Urine Glucose (UA) Urine Ketones Urine Blood Urine Nitrite Urine Bilirubin Urine Urobilinogen Ur Leukocyte Esterase Urine WBC (Auto) Urine RBC (Auto) Urine Casts (Auto) U Pathogenic Cast Auto U Epithel Cells (Auto) U Sm Round Cell (Auto) Urine Crystals (Auto) Urine Bacteria (Auto) 02/11/19 02/11/19 10:43 10:50 WBC RBC Hgb Hct MCV MCH MCHC RDW Plt Count MPV Absolute Neuts (auto) Neutrophils % Lymphocytes % Monocytes % Eosinophils % Basophils % Nucleated RBC % PT with INR INR PTT (Actin FS) Anticoagulation Therapy No Result Required. Puncture Site Right radial ABG pH 7.00 L* ABG pCO2 at Pt Temp 84.8 H* ABG pO2 at Pt Temp 147 H ABG HCO3 24.4 ABG O2 Sat (Measured) 98.2 H ABG O2 Content 15.5 ABG Base Excess -6.9 L Jp Test Positive VBG pH POC VBG pCO2 POC VBG pO2 VBG HCO3 VBG O2 Sat (Juan) VBG Base Excess Carboxyhemoglobin 1.3 Methemoglobin 0.5 O2 Delivery Device No Result Required. Oxygen Flow Rate Yes Vent Mode No Result Required. Vent Rate No Result Required. Mechanical Rate No Result Required. Pressure Support Vent No Result Required. Sodium Potassium Chloride Carbon Dioxide Anion Gap BUN Creatinine Est GFR (CKD-EPI)AfAm Est GFR (CKD-EPI)NonAf Random Glucose Lactic Acid Calcium Phosphorus Magnesium Total Bilirubin AST ALT Alkaline Phosphatase Creatine Kinase Troponin I Total Protein Albumin TSH Urine Color Urine Appearance Urine pH Ur Specific [place] Urine Protein Urine Glucose (UA) Urine Ketones Urine Blood Urine Nitrite Urine Bilirubin Urine Urobilinogen Ur Leukocyte Esterase Urine WBC (Auto) Urine RBC (Auto) Urine Casts (Auto) U Pathogenic Cast Auto U Epithel Cells (Auto) U Sm Round Cell (Auto) Urine Crystals (Auto) Urine Bacteria (Auto) Active Medications Generic Name Dose Route Start Last Admin Trade Name Freq PRN Reason Stop Dose Admin Chlorhexidine Gluconate 1 applic 02/11/19 22:00 Hibiclens For Decolonization - TP HS ERNESTINE Dopamine HCl 400,000 mcg/ 250 mls @ 5.37 mls/hr 02/11/19 11:00 02/11/19 12:30 Sodium Chloride IV 10 mcg/kg/min TITR ERNESTINE 26.87 mls/hr Titration Protocol 2 MCG/KG/MIN Mupirocin 1 applic 02/11/19 22:00 Bactroban Ointment (For Decolonization) - NS 02/16/19 21:59 BID ERNESTINE ASSESSMENT/PLAN: 83 y/o female with PMH of HTN, CHF, CAD s/p stents, ESRD (t//), DM presents to the ED after being sent from dialysis due to hypotension #Neuro neurologically intact; stable no issues #Cardiovascular patient was found to be hypotensive was started peripherally on dopamine before a central line was placed -will started patient on levophed given her hypotension in addition to bradycardia -will hold antihypertensive medications currently -history of afib- not on AC given history of previous GI bleed -maintain MAPS >65 -monitor hemodynamics -Dr. Hedrick consulted #Endo patient has history of hypothyroidism however her TSH is low and she is hypothermic -will repeat TFT's -will try and contact patients foreman/pile driving and erection -for now will hold synthroid #ID sepsis workup initiated -blood cx pending -U/A- >100 WBCs however negative nitrites/leuk esterase -given vanc/cefepime -will continue with vanc/cefepime #Pulmonary patient has no COPD history however ABG showed PH 7.00, PCO2 88.4 -patient placed on BIPAP; will repeat ABG -CXR showed b/l effusions; ordered a chest CT #Renal patient did not receive dialysis this AM as she was too hypotensive from the start however patient is volume overloaded -dr. cedillo consulted -patient is on the schedule to receive HD tonight -monitor electrolytes and volume status F/E/N not on fluids monitor electrolytes sodium controlled diet DVT PPX: SCDS code status: DNR/DNI Dispo: We will continue to follow the patient. Thank you for this consultative opportunity. Problem List - Problems (1) Congestive heart failure (CHF) Code(s): I50.9 - HEART FAILURE, UNSPECIFIED Qualifiers: Heart failure type: unspecified Heart failure chronicity: acute on chronic Qualified Code(s): I50.9 - Heart failure, unspecified (2) Sepsis Code(s): A41.9 - SEPSIS, UNSPECIFIED ORGANISM Qualifiers: Sepsis type: sepsis due to unspecified organism Qualified Code(s): A41.9 - Sepsis, unspecified organism (3) Atrial fibrillation Code(s): I48.91 - UNSPECIFIED ATRIAL FIBRILLATION Qualifiers: Atrial fibrillation type: persistent Qualified Code(s): I48.1 - Persistent atrial fibrillation (4) CAD (coronary artery disease) Code(s): I25.10 - ATHSCL HEART DISEASE OF [place] CORONARY ARTERY W/O ANG PCTRS (5) ESRD (end stage renal disease) on dialysis Code(s): N18.6 - END STAGE RENAL DISEASE; Z99.2 - DEPENDENCE ON RENAL DIALYSIS Visit type - Emergency Visit Emergency Visit: Yes ED Registration Date: 02/11/19 Care time: The patient presented to the Emergency Department on the above date and was hospitalized for further evaluation of their emergent condition. - New Patient This patient is new to me today: Yes Date on this admission: 02/11/19 - Critical Care Critical Care patient: Yes Total Critical Care Time (in minutes): 35 Critical Care Statement: The care of this patient involved high complexity decision making to prevent further life threatening deterioration of the patient 's condition and/or to evaluate & treat vital organ system(s) failure or risk of failure.
[2019-02-11] MEDS ORDERED: SODIUM CHLORIDE 250 ML IV PRN ×2 (13:20→15:38)
[2019-02-11] MEDS ORDERED: HEPARIN NA (PORCINE) 5,000 UNITS/ML 1ML VIAL IVPUSH ONE (13:20)
[2019-02-11] MEDS ORDERED: HEPARIN NA (PORCINE) 5,000 UNITS/ML 1ML VIAL IVPUSH SCH (13:30)
[2019-02-11] MEDS ORDERED: CINACALCET HCL 30 MG TAB (FP) PO SCH (14:45)
[2019-02-11] MEDS ORDERED: CEFEPIME 0.5 GM in DEXTROSE 5%-WATER - 100 ML IVPB SCH (15:00)
--- NOTE | 2019-02-11 15:01 | CONSULT ---
Consult - text type - Consultation Consultation Note: Renal Consult for ESRD on HD This is a 83 year old woman with hx of ESRD on HD ([facility]), CHF with LV dysfunction, Afib (not on A/C), Hypertension, , CAD s/p PCI who presented from outpatient dialysis with hypotension. Pt seen and examined in the ICU. On Dopamine gtt. Denies any chest pain or sob at the present time. Reports that she felt tired and cold but denies any fevers, chills, abd pain, cough, N/V/D. Last dialysis was Sunday. BP in Hd today was 70-80's systolic, normally in 120's systolic. PMhx: as above Allergies: As listed in EMR Family Hx: NC Social Hx: No T/A/D ROS: as per HPI, all other pertinent ros negative Home Medications Medication Instructions Recorded RX: Cinacalcet HCl [Sensipar] 30 mg PO ASDIR 07/22/17 RX: Furosemide [Lasix] 80 mg PO DAILY 07/22/17 RX: Labetalol HCl 300 mg PO BID 07/22/17 RX: Magnesium Oxide 400 mg PO DAILY 07/22/17 RX: Aspirin Coated [Ecotrin -] 81 mg PO DAILY tablet.ec 08/01/17 RX: Folic Acid/Vit B Complex and C 0.8 mg PO DAILY 01/21/19 [Dialyvite 800 Tablet] RX: Insulin (Novolog 70/30) 8 ml SQ ASDIR 01/21/19 [Novolog Mix 70/30 Vial -] RX: Insulin Sliding Scale [Novolog 6 units SQ AM 01/21/19 Vial Sliding Scale -] RX: Levothyroxine [Synthroid -] 175 mcg PO ASDIR 01/21/19 Vital Signs Temperature 97.4 F L 02/11/19 13:25 Pulse Rate 72 02/11/19 13:25 Respiratory Rate 18 02/11/19 13:25 Blood Pressure 106/57 L 02/11/19 13:25 O2 Sat by Pulse Oximetry (%) 94 L 02/11/19 12:21 Intake & Output 02/08/19 02/09/19 02/10/19 02/11/19 23:59 23:59 23:59 23:59 Weight 72.4 kg NAD awake and alert neck supple, no JVD Left IJ central line in place irregular, no M/R Dec BS b/l lung chiang ++ edema in LE left arm AVF + bruit CBC, BMP 02/11/19 09:50 02/11/19 09:12 Current Medications Albumin Human (Albumin Human 25%) 12.5 gm IVPB Q30M ERNESTINE Stop: 02/11/19 17:01 Aspirin (Ecotrin -) 81 mg PO DAILY [facility] Chlorhexidine Gluconate (Hibiclens For Decolonization -) 1 applic TP HS [facility] Cinacalcet (Sensipar -) 30 mg PO DAILY [facility] Dopamine HCl 400,000 mcg/ (Sodium Chloride) 250 mls @ 5.37 mls/hr IV TITR ERNESTINE; Protocol Last Titration: 02/11/19 12:30 Dose: 10 mcg/kg/min, 26.87 mls/hr Sodium Chloride (Normal Saline -) 250 mls @ 3,000 mls/hr IV PRN PRN PRN Reason: Hypotension during Dialysis Stop: 02/12/19 13:20 Norepinephrine Bitartrate 8, (000 mcg/ Dextrose) 500 mls @ 18.75 mls/hr IV TITR ERNESTINE; Protocol Cefepime HCl 0.5 gm/ Dextrose 100 mls @ 200 mls/hr IVPB DAILY ERNESTINE; Protocol Cefepime HCl 0.5 gm/ Dextrose 100 mls @ 100 mls/hr IVPB DAILY [facility] Stop: 02/13/19 09:59 Insulin Aspart (Novolog Vial Sliding Scale -) 1 vial SQ ACHS [facility]; Protocol Mupirocin (Bactroban Ointment (For Decolonization) -) 1 applic NS BID [facility] Stop: 02/16/19 21:59 83 year old woman with hx of ESRD on HD ([facility]), CHF with LV dysfunction, Afib (not on A/C), Hypertension, , CAD s/p PCI who presented from outpatient dialysis with hypotension. #ESRD on HD #Hypotensoin due to cardiogenic shock vs. sepsis #CHF with LV dysfunction #CAD #Hypercarbic respiratory acidosis #Thrombocytopenia #Renal Osteodystrophy Will plan urgent dialysis today as inpatient in the ICU. Maintain on vasopressers during treatment to keep MAP > 60 will use IV albumin, low temp and sodium modeling on dialysis to help maintain BP Goal UF is 3.5L if tolerated f/u blood and urine cultures Continue BIPAP for hypercarbic respiratory failure Etiology of thrombocytopenia unclear, ? related to sepsis, was down trending on last admission as well will not use Heparin during dialysis Thank you Will follow Kenny Yeboah DO
[2019-02-11] MEDS: ALBUMIN HUMAN 25% 12.5 GM/50 ML VIAL IVPB SCH ×4 (15:30→17:00)
[2019-02-11] MEDS: NOREPINEPHRINE BITARTRATE 8,000 MCG in DEXTROSE 5%-WATER - 492 ML IV SCH (15:43)
--- NOTE | 2019-02-11 16:58 | PN ---
Progress Note (short form) - Note Progress Note: ID CONSULT DICTATED R/O SEPTIC SHOCK HYPOTHERMIA RESPIRATORY FAILURE R EFFUSION V. PNEUMONIA ESRD PCN ALLERGY AWAIT C/S EMPIRIC VANCOMYCIN/ AZTREONAM RESPIRATORY/ HEMODYNAMIC SUPPORT CRITICAL CARE TIME 45MIN
--- NOTE | 2019-02-11 18:07 | HP ---
Admitting History and Physical - Primary Care Physician PCP: Brittni Bolaños - Admission Chief Complaint: sepsis History of Present Illness: ER HISTORY - History of Present Illness Initial Comments: 02/11/19 09:28 83 y/o F with PMHx of systolic and diastolic CHF, AFib (previously on AC, stopped due to GI bleeding), DM, Hyperparathyroidism, ESRD on HD ([facility]), CAD s/p Cardiac stent x1, HTN, Aortic Stenosis was BIBEMS due to hypotension. Patient was in her usual state of health this morning and went to [facility] for HD where she was found to be hypotensive to the 70-80s/50s. She mentions she is usually normotensive to the 120s/80s and this is the first time she is hypotensive. Patient did not receive HD this AM and her last HD was Sunday. Patient mentions that recently, she has had a cough productive of white sputum, that is currently nonproductive. She was prescribed an ABx but has not started yet. Additionally endorses chronic constipation. Denies any recent trauma, travel, sick contacts or recent medication changes. Denies any Fevers, chills, weakness, chest pain, SOB, nausea, vomiting, diarrhea , dysuria. PCP: Dr. Bolaños PMHx: As above PSHx: Right Total Hip replacement, Cardiac stent Allergies: Erythromycin, PCN, Verapamil Social: Former smoker (quit in 1979), Denies EtOH or Drug use, Resident of [facility] FHx: Noncontributory Pt seen by me in ER confused Feels weak Was hypotensive and hypothermic in dialysis currently no coughing or SOB received iv antibiotics in ER-- was started on dopamine History Source: Patient, Medical Record Limitations to Obtaining History: Poor Historian - Past Medical History Cardiovascular: Yes: AFIB (paroxysmal), CAD, HTN Renal/: Yes: Renal Failure, Hemodialysis ...: No Endocrine: Yes: Diabetes Mellitus - Past Surgical History Past Surgical History: Yes: Joint Replacement (rt hip- 2009, ankle fracture , s/ p plates-- 2005) - Smoking History Smoking history: Former smoker Have you smoked in the past 12 months: No Aproximately how many cigarettes per day: 0 - Alcohol/Substance Use Hx Alcohol Use: No Home Medications - Allergies Allergies/Adverse Reactions: Allergies Allergy/AdvReac Type Severity Reaction Status Date / Time erythromycin base Allergy Severe Swelling Verified 02/11/19 08:30 Penicillins Allergy Severe Swelling Verified 02/11/19 08:30 verapamil [Verapamil] Allergy Severe Swelling Verified 02/11/19 08:30 aspirin AdvReac Nausea Verified 02/11/19 08:30 peppers Allergy Uncoded 02/13/19 13:13 AQUACEL DRESSING AdvReac Severe Rash Uncoded 02/11/19 08:30 - Home Medications Home Medications: Ambulatory Orders Cinacalcet HCl [Sensipar] 30 mg PO ASDIR 07/22/17 Magnesium Oxide 400 mg PO DAILY 07/22/17 Aspirin Coated [Ecotrin -] 81 mg PO DAILY tablet.ec 08/01/17 Folic Acid/Vit B Complex and C [Dialyvite 800 Tablet] 0.8 mg PO DAILY 01/21/19 Insulin (Novolog 70/30) [Novolog Mix 70/30 Vial -] 8 ml SQ ASDIR 01/21/19 Insulin Sliding Scale [Novolog Vial Sliding Scale -] 6 units SQ AM 01/21/19 Levothyroxine [Synthroid -] 150 mcg PO DAILY@0700 #30 tablet 02/15/19 Metoprolol Tartrate [Lopressor -] 25 mg PO BID #60 tablet 02/15/19 Review of Systems - Review of Systems Constitutional: denies: Chills, Fever Cardiovascular: denies: Chest Pain, Shortness of Breath Respiratory: denies: Cough Physical Examination Vital Signs: Vital Signs Temperature 92.7 F L 02/11/19 14:00 Pulse Rate 88 02/11/19 17:30 Respiratory Rate 18 02/11/19 17:30 Blood Pressure 125/55 L 02/11/19 17:30 O2 Sat by Pulse Oximetry (%) 94 L 02/11/19 12:21 Constitutional: Yes: No Distress, Calm Cardiovascular: Yes: Regular Rate and Rhythm Respiratory: Yes: Diminished Gastrointestinal: Yes: Normal Bowel Sounds, Soft. No: Tenderness Edema: Yes Labs: CBC, BMP 02/11/19 09:50 02/11/19 09:12 Imaging - Results Chest X-ray: Image Reviewed EKG: Image Reviewed Problem List - Problems (1) Atrial fibrillation Code(s): I48.91 - UNSPECIFIED ATRIAL FIBRILLATION Qualifiers: Atrial fibrillation type: persistent Qualified Code(s): I48.1 - Persistent atrial fibrillation (2) CAD (coronary artery disease) Code(s): I25.10 - ATHSCL HEART DISEASE OF [place] CORONARY ARTERY W/O ANG PCTRS (3) Congestive heart failure (CHF) Code(s): I50.9 - HEART FAILURE, UNSPECIFIED Qualifiers: Heart failure type: unspecified Heart failure chronicity: acute on chronic Qualified Code(s): I50.9 - Heart failure, unspecified (4) Diabetes Code(s): E11.9 - TYPE 2 DIABETES MELLITUS WITHOUT COMPLICATIONS (5) ESRD (end stage renal disease) on dialysis Code(s): N18.6 - END STAGE RENAL DISEASE; Z99.2 - DEPENDENCE ON RENAL DIALYSIS (6) Sepsis Code(s): A41.9 - SEPSIS, UNSPECIFIED ORGANISM Qualifiers: Sepsis type: sepsis due to unspecified organism Qualified Code(s): A41.9 - Sepsis, unspecified organism Assessment/Plan PLAN IV antibiotics --received vancomycin and cefepime in ER ID eval blood cultures pending admit to ICU on Dopamin drip Renal eval for dialysis continue with meds check TSH check CT head and CT chest for source of sepsis
--- NOTE | 2019-02-11 18:08 | CONS ---
DATE OF CONSULTATION: 02/11/2019 DATE OF DICTATION: 02/11/2019 HISTORY OF PRESENT ILLNESS: The patient is an 83-year-old female who is evaluated for possible septic shock. She was admitted to the hospital after she was noted to be hypotensive on hemodialysis. She was transferred to the emergency room where she was hypotensive, hypothermic, and short of breath. Patient required placement on a BiPAP mass. Her course was complicated by hypercarbia. She was also placed on dopamine for hypotension. The patient was admitted to the intensive care unit where she presently is awake and alert, on a BiPAP mask, short of breath. She is able to give history, but she reports cough for several days which has been dry in nature. She has had a poor appetite and constipation. She denies any chest pain. No reports of recent febrile illness or shaky chills. No vomiting or diarrhea. She is on hemodialysis but reports that she is not anuric. On initial evaluation she was noted to be leukopenic and thrombocytopenic. Urinalysis showed many white cells. Chest x-ray shows a right-sided effusion versus infiltrate. She is a [facility] resident. She denies any ill contacts. Reports receiving influenza, pneumococcal vaccines. No recent travel. Her most recent hospitalization was in late December for a malfunctioning dialysis access. Patient received 2 doses of Levaquin prior to her discharge from the [facility]. PAST MEDICAL HISTORY: Positive for end-stage renal disease on hemodialysis, congestive heart failure, atrial fibrillation, diabetes mellitus, hyperparathyroidism, coronary artery disease, hypertension. PAST SURGICAL HISTORY: Status post right total knee replacement and coronary artery stent. ALLERGIES: PENICILLIN, ERYTHROMYCIN, VERAPAMIL, ASPIRIN. She reports rash with PENICILLIN. No history of anaphylaxis. SOCIAL HISTORY: She is a [facility] resident. Denies active tobacco or alcohol use. She is essentially wheelchair bound after a right total hip replacement resulting in a shortened right lower extremity. SYSTEMS REVIEW: Neurologic: No loss of consciousness, seizure activity, or focal weakness. Cardiac: Negative for chest pain or palpitations. Respiratory: As per HPI. Gastrointestinal: Positive for constipation. Genitourinary: End-stage renal disease on hemodialysis. LABORATORY DATA: White count 2.9, with 68 neutrophils, 20 lymphocytes, 8 monocytes. Hematocrit 37.4, platelets 69. Chemistries: BUN 56, creatinine 4.5, total bilirubin 0.8, alkaline phosphatase 177. AST 24, vancomycin trough 18. Cultures are pending. Previous wound culture positive for MRSA from a right heel wound. Chest x-ray: Right pleural effusion, congestive changes, possible atelectasis versus infiltrate. PHYSICAL EXAMINATION: General: On physical examination, she is awake. She is short of breath on BiPAP. She is conversant. Vital signs: Temperature 92.7, blood pressure 105/53, pulse 72 regular, respirations 18 per minute. HEENT: Sclerae anicteric. Cardiovascular: Heart sounds S1, S2. Lungs: Diminished breath sounds bilaterally. Abdomen: Soft, obese, nontender. Extremities: Positive for edema. IMPRESSION: 1. Hypotension, rule out septic shock. 2. Hypothermia. 3. Respiratory failure. 4. Right effusion versus infiltrate. 5. End-stage renal disease on hemodialysis. 6. Leukopenia. 7. Thrombocytopenia. 8. PENICILLIN allergy. Await culture results. Obtain sputum culture. Urine legionella antigen. Empiric antibiotic coverage for sepsis in this [facility] patient with PENICILLIN allergy with vancomycin and Azactam. Continue respiratory and hemodynamic support. MRSA precautions. Critical care time spent 40 minutes. Thank you for the kind referral. XAVIER MEDINA M.D. [id number]
[2019-02-11] MEDS: INSULIN SLIDING SCALE (NOVOLOG) 1 VIAL SQ SCH ×2 (18:25→21:44)
[2019-02-11] MEDS: AZTREONAM 0.5 GM in DEXTROSE 5%-WATER - 50 ML IVPB SCH (21:20)
[2019-02-11 21:26] LABS: ARTERIAL BLD GAS O2 SATURATION 96.8 % (95-98); ARTERIAL BLOOD GAS BASE EXCESS 3.1 meq/l (-2-2); ARTERIAL BLOOD GAS PCO2 66.8 mmHg (35-45); ARTERIAL BLOOD GAS PO2 90.5 mmHg (80-105); ARTERIAL BLOOD GAS pH 7.29 (7.35-7.45)
[2019-02-11] MEDS: MUPIROCIN 2% TOPICAL OINTMENT FOR DECOLONIZATION NS SCH (21:43)
[2019-02-11] MEDS: CHLORHEXIDINE GLUCONATE 4% CLEANSER FOR DECOLONIZATION TP SCH (22:40)
[2019-02-12 06:06] LABS: BASO % 0.5 % (0-2.0); EOS % 0.6 % (0-4.5); HEMATOCRIT 34.7 % (32.4-45.2); HEMOGLOBIN 11.4 GM/dL (10.7-15.3); LYMPH % 10.5 % (8-40); MCH 34.5 pg (25.7-33.7); MCHC 32.8 g/dl (32.0-36.0); MEAN CELL VOLUME 105.2 fl (80-96); MEAN PLT VOLUME 9.4 fl (7.5-11.1); MONO % 8.2 % (3.8-10.2); NEUT % 80.2 % (42.8-82.8); PLATELET COUNT 72 K/MM3 (134-434); RDW 17.6 % (11.6-15.6); WHITE BLOOD COUNT 4.5 K/mm3 (4.0-10.0)
[2019-02-12 06:18] LABS: INR 1.15 (0.83-1.09); PROTHROMBIN TIME (PATIENT) 13.6 SEC (9.7-13.0)
[2019-02-12 06:48] LABS: ALBUMIN 2.9 g/dl (3.4-5.0); BILIRUBIN,TOTAL 0.9 mg/dL (0.2-1); BLOOD UREA NITROGEN 28.6 mg/dL (7-18); CALCIUM 8.4 mg/dL (8.5-10.1); CREATININE 3.1 mg/dL (0.55-1.3); MAGNESIUM 2.1 mg/dL (1.8-2.4); PHOSPHOROUS 2.9 mg/dL (2.5-4.9); POTASSIUM 3.4 mmol/L (3.5-5.1); TOT PROT 7.1 g/dl (6.4-8.2)
[2019-02-12] MEDS: INSULIN SLIDING SCALE (NOVOLOG) 1 VIAL SQ SCH ×4 (07:25→21:29)
[2019-02-12] MEDS: AZTREONAM 0.5 GM in DEXTROSE 5%-WATER - 50 ML IVPB SCH ×2 (09:20→21:26)
[2019-02-12] MEDS ORDERED: CEFEPIME 0.5 GM in DEXTROSE 5%-WATER - 100 ML IVPB SCH (10:00)
[2019-02-12] MEDS ORDERED: PT OWN MED DRAWER 7, Y5N ONE (10:01)
[2019-02-12] MEDS: CINACALCET HCL 30 MG TAB (FP) PO SCH (10:03)
[2019-02-12] MEDS: ASPIRIN COATED 81 MG TABLET.EC PO SCH (10:03)
[2019-02-12] MEDS: MUPIROCIN 2% TOPICAL OINTMENT FOR DECOLONIZATION NS SCH ×2 (10:03→21:26)
--- NOTE | 2019-02-12 10:38 | PN ---
Progress Note (short form) - Note Progress Note: confused today states she is SOB no pain Vital Signs - 24 hr 02/11/19 02/11/19 02/11/19 11:17 11:46 12:21 Temperature Pulse Rate Pulse Rate [ 69 67 Apical] Respiratory 18 18 Rate Blood Pressure Blood Pressure 86/47 L 92/47 L [Right] O2 Sat by Pulse 99 96 94 L Oximetry (%) 02/11/19 02/11/19 02/11/19 13:25 14:00 15:00 Temperature 97.4 F L 92.7 F L 92.8 F L Pulse Rate 72 72 Pulse Rate [ Apical] Respiratory 18 17 Rate Blood Pressure 106/57 L 105/53 L Blood Pressure [Right] O2 Sat by Pulse Oximetry (%) 02/11/19 02/11/19 02/11/19 15:20 15:30 15:43 Temperature Pulse Rate 81 83 75 Pulse Rate [ Apical] Respiratory 18 18 Rate Blood Pressure 111/55 L 103/66 103/66 Blood Pressure [Right] O2 Sat by Pulse Oximetry (%) 02/11/19 02/11/19 02/11/19 16:00 16:30 17:00 Temperature 93.4 F L 94.3 F L Pulse Rate 84 86 77 Pulse Rate [ Apical] Respiratory 18 18 18 Rate Blood Pressure 126/54 L 109/95 114/57 L Blood Pressure [Right] O2 Sat by Pulse Oximetry (%) 02/11/19 02/11/19 02/11/19 17:30 18:00 18:30 Temperature 95.6 F L Pulse Rate 88 86 87 Pulse Rate [ Apical] Respiratory 18 18 18 Rate Blood Pressure 125/55 L 129/72 133/58 L Blood Pressure [Right] O2 Sat by Pulse 97 Oximetry (%) 02/11/19 02/11/19 02/11/19 19:00 19:30 19:50 Temperature Pulse Rate 89 88 84 Pulse Rate [ Apical] Respiratory 18 18 18 Rate Blood Pressure 131/69 134/88 128/70 Blood Pressure [Right] O2 Sat by Pulse Oximetry (%) 02/11/19 02/11/19 02/11/19 20:00 21:00 22:00 Temperature 98.2 F 98.8 F Pulse Rate 95 H 87 Pulse Rate [ Apical] Respiratory 21 H 26 H Rate Blood Pressure 121/61 121/104 H Blood Pressure [Right] O2 Sat by Pulse 100 Oximetry (%) 02/11/19 02/12/19 02/12/19 23:41 00:00 02:00 Temperature 97.8 F Pulse Rate 94 H 99 H Pulse Rate [ Apical] Respiratory 22 H 24 H Rate Blood Pressure 134/62 142/117 H Blood Pressure [Right] O2 Sat by Pulse 100 Oximetry (%) 02/12/19 02/12/19 02/12/19 02:45 04:00 05:20 Temperature Pulse Rate 98 H Pulse Rate [ Apical] Respiratory 25 H Rate Blood Pressure 135/69 Blood Pressure [Right] O2 Sat by Pulse 100 100 Oximetry (%) 02/12/19 02/12/19 02/12/19 06:00 07:04 08:00 Temperature 99.5 F Pulse Rate 91 H 90 Pulse Rate [ Apical] Respiratory 24 H 24 H Rate Blood Pressure 127/55 L 140/104 H Blood Pressure [Right] O2 Sat by Pulse 100 Oximetry (%) 02/12/19 10:00 Temperature Pulse Rate 88 Pulse Rate [ Apical] Respiratory 24 H Rate Blood Pressure 127/67 Blood Pressure [Right] O2 Sat by Pulse 100 Oximetry (%) Current Medications Generic Name Dose Route Start Last Admin Trade Name Freq PRN Reason Stop Dose Admin Aspirin 81 mg 02/12/19 10:00 02/12/19 10:03 Ecotrin - PO 81 mg DAILY [facility] Administration Chlorhexidine Gluconate 1 applic 02/11/19 22:00 02/11/19 22:40 Hibiclens For Decolonization - TP 1 applic HS [facility] Administration Cinacalcet 30 mg 02/11/19 14:52 02/12/19 10:03 Sensipar - PO 30 mg DAILY [facility] Administration Sodium Chloride 250 mls @ 3,000 mls/hr 02/11/19 13:20 Normal Saline - IV 02/12/19 13:20 PRN PRN Hypotension during Dialysis Norepinephrine Bitartrate 8, 500 mls @ 18.75 mls/hr 02/11/19 13:45 02/12/19 06:00 000 mcg/ Dextrose IV 0 mcg/min TITR [facility] 0 mls/hr Titration Protocol 5 MCG/MIN Cefepime HCl 0.5 gm/ Dextrose 100 mls @ 200 mls/hr 02/12/19 10:00 IVPB DAILY [facility] Protocol Sodium Chloride 250 mls @ 3,000 mls/hr 02/11/19 15:38 Normal Saline - IV 02/12/19 15:38 PRN PRN Hypotension during Dialysis Aztreonam 0.5 gm/ Dextrose 50 mls @ 100 mls/hr 02/11/19 21:00 02/12/19 09:20 IVPB 100 mls/hr Q12H [facility] Administration Protocol Insulin Aspart 1 vial 02/11/19 16:30 02/12/19 07:25 Novolog Vial Sliding Scale - SQ Not Given ACHS [facility] Protocol Mupirocin 1 applic 02/11/19 22:00 02/12/19 10:03 Bactroban Ointment (For Decolonization) - NS 02/16/19 21:59 1 applic BID [facility] Administration Laboratory Results - last 24 hr 02/11/19 02/11/19 02/11/19 09:12 09:50 09:50 WBC 2.9 L RBC 3.47 L Hgb 11.9 Hct 37.4 MCV 108.0 H MCH 34.2 H MCHC 31.7 L RDW 17.6 H Plt Count 69 L MPV 9.7 Absolute Neuts (auto) 2.0 Neutrophils % 68.9 Lymphocytes % 20.6 Monocytes % 8.0 Eosinophils % 1.9 Basophils % 0.6 Nucleated RBC % 2 H PT with INR INR PTT (Actin FS) Anticoagulation Therapy Puncture Site ABG pH ABG pCO2 at Pt Temp ABG pO2 at Pt Temp ABG HCO3 ABG O2 Sat (Measured) ABG O2 Content ABG Base Excess Jp Test VBG pH POC VBG pCO2 POC VBG pO2 VBG HCO3 VBG O2 Sat (Juan) VBG Base Excess Carboxyhemoglobin Methemoglobin O2 Delivery Device Oxygen Flow Rate Vent Mode Vent Rate Mechanical Rate Pressure Support Vent Sodium 133 L Potassium 4.1 Chloride 98 Carbon Dioxide 26 Anion Gap 10 BUN 56.8 H Creatinine 4.5 H Est GFR (CKD-EPI)AfAm 9.93 Est GFR (CKD-EPI)NonAf 8.57 POC Glucometer Random Glucose 83 Lactic Acid Calcium 8.9 Phosphorus 4.7 Magnesium 2.5 H Total Bilirubin 0.8 AST 24 ALT 12 L Alkaline Phosphatase 177 H Creatine Kinase 30 Troponin I 0.03 Total Protein 7.6 Albumin 3.0 L TSH 0.11 L Free T4 Urine Color Yellow Urine Appearance Cloudy Urine pH Ur Specific [place] Urine Protein Urine Glucose (UA) Urine Ketones Urine Blood Urine Nitrite Urine Bilirubin Urine Urobilinogen Ur Leukocyte Esterase Urine WBC (Auto) >100 Urine RBC (Auto) 5 Urine Casts (Auto) No Result Required. U Pathogenic Cast Auto No Result Required. U Epithel Cells (Auto) Few U Sm Round Cell (Auto) No Result Required. Urine Crystals (Auto) No Result Required. Urine Bacteria (Auto) Many Random Vancomycin 02/11/19 02/11/19 02/11/19 09:50 09:50 09:50 WBC RBC Hgb Hct MCV MCH MCHC RDW Plt Count MPV Absolute Neuts (auto) Neutrophils % Lymphocytes % Monocytes % Eosinophils % Basophils % Nucleated RBC % PT with INR 11.70 INR 0.99 PTT (Actin FS) 32.2 Anticoagulation Therapy Puncture Site ABG pH ABG pCO2 at Pt Temp ABG pO2 at Pt Temp ABG HCO3 ABG O2 Sat (Measured) ABG O2 Content ABG Base Excess Jp Test VBG pH 7.09 L* POC VBG pCO2 88.6 H* POC VBG pO2 43.4 H VBG HCO3 25.5 VBG O2 Sat (Juan) 67.8 L VBG Base Excess -6.5 L Carboxyhemoglobin Methemoglobin O2 Delivery Device Oxygen Flow Rate Vent Mode Vent Rate Mechanical Rate Pressure Support Vent Sodium Potassium Chloride Carbon Dioxide Anion Gap BUN Creatinine Est GFR (CKD-EPI)AfAm Est GFR (CKD-EPI)NonAf POC Glucometer Random Glucose Lactic Acid 0.9 Calcium Phosphorus Magnesium Total Bilirubin AST ALT Alkaline Phosphatase Creatine Kinase Troponin I Total Protein Albumin TSH Free T4 Urine Color Urine Appearance Urine pH Ur Specific [place] Urine Protein Urine Glucose (UA) Urine Ketones Urine Blood Urine Nitrite Urine Bilirubin Urine Urobilinogen Ur Leukocyte Esterase Urine WBC (Auto) Urine RBC (Auto) Urine Casts (Auto) U Pathogenic Cast Auto U Epithel Cells (Auto) U Sm Round Cell (Auto) Urine Crystals (Auto) Urine Bacteria (Auto) Random Vancomycin 02/11/19 02/11/19 02/11/19 10:43 10:50 15:30 WBC RBC Hgb Hct MCV MCH MCHC RDW Plt Count MPV Absolute Neuts (auto) Neutrophils % Lymphocytes % Monocytes % Eosinophils % Basophils % Nucleated RBC % PT with INR INR PTT (Actin FS) Anticoagulation Therapy No Result Required. Puncture Site Right radial ABG pH 7.00 L* ABG pCO2 at Pt Temp 84.8 H* ABG pO2 at Pt Temp 147 H ABG HCO3 24.4 ABG O2 Sat (Measured) 98.2 H ABG O2 Content 15.5 ABG Base Excess -6.9 L Jp Test Positive VBG pH POC VBG pCO2 POC VBG pO2 VBG HCO3 VBG O2 Sat (Juan) VBG Base Excess Carboxyhemoglobin 1.3 Methemoglobin 0.5 O2 Delivery Device No Result Required. Oxygen Flow Rate Yes Vent Mode No Result Required. Vent Rate No Result Required. Mechanical Rate No Result Required. Pressure Support Vent No Result Required. Sodium Potassium Chloride Carbon Dioxide Anion Gap BUN Creatinine Est GFR (CKD-EPI)AfAm Est GFR (CKD-EPI)NonAf POC Glucometer Random Glucose Lactic Acid Calcium Phosphorus Magnesium Total Bilirubin AST ALT Alkaline Phosphatase Creatine Kinase Troponin I Total Protein Albumin TSH 0.09 L Free T4 1.53 H Urine Color Urine Appearance Urine pH Ur Specific [place] Urine Protein Urine Glucose (UA) Urine Ketones Urine Blood Urine Nitrite Urine Bilirubin Urine Urobilinogen Ur Leukocyte Esterase Urine WBC (Auto) Urine RBC (Auto) Urine Casts (Auto) U Pathogenic Cast Auto U Epithel Cells (Auto) U Sm Round Cell (Auto) Urine Crystals (Auto) Urine Bacteria (Auto) Random Vancomycin 02/11/19 02/11/19 02/11/19 16:05 18:13 21:05 WBC RBC Hgb Hct MCV MCH MCHC RDW Plt Count MPV Absolute Neuts (auto) Neutrophils % Lymphocytes % Monocytes % Eosinophils % Basophils % Nucleated RBC % PT with INR INR PTT (Actin FS) Anticoagulation Therapy No Result Required. Puncture Site Right radial ABG pH 7.29 L ABG pCO2 at Pt Temp 66.8 H ABG pO2 at Pt Temp 90.5 ABG HCO3 30.9 H ABG O2 Sat (Measured) 96.8 ABG O2 Content 15.8 ABG Base Excess 3.1 H Jp Test No Result Required. VBG pH POC VBG pCO2 POC VBG pO2 VBG HCO3 VBG O2 Sat (Juan) VBG Base Excess Carboxyhemoglobin Methemoglobin O2 Delivery Device Bipap Oxygen Flow Rate 35% Vent Mode S/t Vent Rate 12 Mechanical Rate No Result Required. Pressure Support Vent 10/6 Sodium Potassium Chloride Carbon Dioxide Anion Gap BUN Creatinine Est GFR (CKD-EPI)AfAm Est GFR (CKD-EPI)NonAf POC Glucometer 155 Random Glucose Lactic Acid Calcium Phosphorus Magnesium Total Bilirubin AST ALT Alkaline Phosphatase Creatine Kinase Troponin I Total Protein Albumin TSH Free T4 Urine Color Urine Appearance Urine pH Ur Specific [place] Urine Protein Urine Glucose (UA) Urine Ketones Urine Blood Urine Nitrite Urine Bilirubin Urine Urobilinogen Ur Leukocyte Esterase Urine WBC (Auto) Urine RBC (Auto) Urine Casts (Auto) U Pathogenic Cast Auto U Epithel Cells (Auto) U Sm Round Cell (Auto) Urine Crystals (Auto) Urine Bacteria (Auto) Random Vancomycin 18.4 02/11/19 02/12/19 02/12/19 21:40 05:30 05:30 WBC 4.5 RBC 3.30 L Hgb 11.4 Hct 34.7 MCV 105.2 H MCH 34.5 H MCHC 32.8 RDW 17.6 H Plt Count 72 L MPV 9.4 Absolute Neuts (auto) 3.6 Neutrophils % 80.2 Lymphocytes % 10.5 D Monocytes % 8.2 Eosinophils % 0.6 Basophils % 0.5 Nucleated RBC % 1 H PT with INR 13.60 H INR 1.15 H PTT (Actin FS) 32.0 Anticoagulation Therapy Puncture Site ABG pH ABG pCO2 at Pt Temp ABG pO2 at Pt Temp ABG HCO3 ABG O2 Sat (Measured) ABG O2 Content ABG Base Excess Jp Test VBG pH POC VBG pCO2 POC VBG pO2 VBG HCO3 VBG O2 Sat (Juan) VBG Base Excess Carboxyhemoglobin Methemoglobin O2 Delivery Device Oxygen Flow Rate Vent Mode Vent Rate Mechanical Rate Pressure Support Vent Sodium Potassium Chloride Carbon Dioxide Anion Gap BUN Creatinine Est GFR (CKD-EPI)AfAm Est GFR (CKD-EPI)NonAf POC Glucometer 76 Random Glucose Lactic Acid Calcium Phosphorus Magnesium Total Bilirubin AST ALT Alkaline Phosphatase Creatine Kinase Troponin I Total Protein Albumin TSH Free T4 Urine Color Urine Appearance Urine pH Ur Specific [place] Urine Protein Urine Glucose (UA) Urine Ketones Urine Blood Urine Nitrite Urine Bilirubin Urine Urobilinogen Ur Leukocyte Esterase Urine WBC (Auto) Urine RBC (Auto) Urine Casts (Auto) U Pathogenic Cast Auto U Epithel Cells (Auto) U Sm Round Cell (Auto) Urine Crystals (Auto) Urine Bacteria (Auto) Random Vancomycin 02/12/19 05:30 WBC RBC Hgb Hct MCV MCH MCHC RDW Plt Count MPV Absolute Neuts (auto) Neutrophils % Lymphocytes % Monocytes % Eosinophils % Basophils % Nucleated RBC % PT with INR INR PTT (Actin FS) Anticoagulation Therapy Puncture Site ABG pH ABG pCO2 at Pt Temp ABG pO2 at Pt Temp ABG HCO3 ABG O2 Sat (Measured) ABG O2 Content ABG Base Excess Jp Test VBG pH POC VBG pCO2 POC VBG pO2 VBG HCO3 VBG O2 Sat (Juan) VBG Base Excess Carboxyhemoglobin Methemoglobin O2 Delivery Device Oxygen Flow Rate Vent Mode Vent Rate Mechanical Rate Pressure Support Vent Sodium 137 Potassium 3.4 L Chloride 100 Carbon Dioxide 32 Anion Gap 5 L BUN 28.6 H Creatinine 3.1 H Est GFR (CKD-EPI)AfAm 15.58 Est GFR (CKD-EPI)NonAf 13.44 POC Glucometer Random Glucose 96 Lactic Acid Calcium 8.4 L Phosphorus 2.9 Magnesium 2.1 Total Bilirubin 0.9 AST 19 ALT 11 L Alkaline Phosphatase 169 H Creatine Kinase Troponin I Total Protein 7.1 Albumin 2.9 L TSH Free T4 Urine Color Urine Appearance Urine pH Ur Specific [place] Urine Protein Urine Glucose (UA) Urine Ketones Urine Blood Urine Nitrite Urine Bilirubin Urine Urobilinogen Ur Leukocyte Esterase Urine WBC (Auto) Urine RBC (Auto) Urine Casts (Auto) U Pathogenic Cast Auto U Epithel Cells (Auto) U Sm Round Cell (Auto) Urine Crystals (Auto) Urine Bacteria (Auto) Random Vancomycin No pallor S1 S2 Irregular Lungs crackles+ abd- soft, NT edema+ PLAN off pressors iv antibiotics repeat ABG continue meds check CT head and chest HD per renal spoke with ICU team Problem List - Problems (1) Severe protein-calorie malnutrition Code(s): E43 - UNSPECIFIED SEVERE PROTEIN-CALORIE MALNUTRITION (2) Congestive heart failure (CHF) Code(s): I50.9 - HEART FAILURE, UNSPECIFIED Qualifiers: Heart failure type: unspecified Heart failure chronicity: acute on chronic Qualified Code(s): I50.9 - Heart failure, unspecified (3) Sepsis Code(s): A41.9 - SEPSIS, UNSPECIFIED ORGANISM Qualifiers: Sepsis type: sepsis due to unspecified organism Qualified Code(s): A41.9 - Sepsis, unspecified organism (4) Atrial fibrillation Code(s): I48.91 - UNSPECIFIED ATRIAL FIBRILLATION Qualifiers: Atrial fibrillation type: persistent Qualified Code(s): I48.1 - Persistent atrial fibrillation (5) CAD (coronary artery disease) Code(s): I25.10 - ATHSCL HEART DISEASE OF [place] CORONARY ARTERY W/O ANG PCTRS
--- NOTE | 2019-02-12 10:47 | PN ---
Progress Note, Physician History of Present Illness: AWAKE, ALERT SEATED IN BED MILDLY DYSPNEIC ON NASAL CANNULA + COUGH BP, TEMPS IMPROVED - Current Medication List Current Medications: Active Medications Aspirin (Ecotrin -) 81 mg PO DAILY [facility] Last Admin: 02/12/19 10:03 Dose: 81 mg Chlorhexidine Gluconate (Hibiclens For Decolonization -) 1 applic TP HS [facility] Last Admin: 02/11/19 22:40 Dose: 1 applic Cinacalcet (Sensipar -) 30 mg PO DAILY [facility] Last Admin: 02/12/19 10:03 Dose: 30 mg Sodium Chloride (Normal Saline -) 250 mls @ 3,000 mls/hr IV PRN PRN PRN Reason: Hypotension during Dialysis Stop: 02/12/19 13:20 Norepinephrine Bitartrate 8, (000 mcg/ Dextrose) 500 mls @ 18.75 mls/hr IV TITR [facility]; Protocol Last Titration: 02/12/19 06:00 Dose: 0 mcg/min, 0 mls/hr Cefepime HCl 0.5 gm/ Dextrose 100 mls @ 200 mls/hr IVPB DAILY [facility]; Protocol Sodium Chloride (Normal Saline -) 250 mls @ 3,000 mls/hr IV PRN PRN PRN Reason: Hypotension during Dialysis Stop: 02/12/19 15:38 Aztreonam 0.5 gm/ Dextrose 50 mls @ 100 mls/hr IVPB Q12H [facility]; Protocol Last Admin: 02/12/19 09:20 Dose: 100 mls/hr Insulin Aspart (Novolog Vial Sliding Scale -) 1 vial SQ ACHS [facility]; Protocol Last Admin: 02/12/19 07:25 Dose: Not Given Mupirocin (Bactroban Ointment (For Decolonization) -) 1 applic NS BID [facility] Stop: 02/16/19 21:59 Last Admin: 02/12/19 10:03 Dose: 1 applic - Objective Vital Signs: Vital Signs Temperature 99.5 F 02/12/19 06:00 Pulse Rate 88 02/12/19 10:00 Respiratory Rate 24 H 02/12/19 10:00 Blood Pressure 127/67 02/12/19 10:00 O2 Sat by Pulse Oximetry (%) 100 02/12/19 10:00 Constitutional: Yes: No Distress, Cachectic Cardiovascular: Yes: Regular Rate and Rhythm, S1, S2 Respiratory: Yes: Diminished Gastrointestinal: Yes: Normal Bowel Sounds, Soft. No: Tenderness Edema: Yes Labs: CBC, BMP 02/12/19 05:30 02/12/19 05:30 INR, PTT INR 1.15 (0.83-1.09) H 02/12/19 05:30 Assessment/Plan HYPOTENSION/ HYPOTHERMIA IMPROVED R/O RLL PNEUMONIA ESRD PCN ALLERGY AWAIT C/S REDOSE VANCOMYCIN CONTINUE AZTREONAM
[2019-02-12] MEDS ORDERED: VANCOMYCIN 1 GRAM (PRE-DOCKED) 1,000 MG/250 ML BAG IVPB ONE (11:00)
[2019-02-12] MEDS: ALBUTEROL SO4 2.5/IPRATROPIUM 0.5 INH SOL 3 ML VIAL.NEB. NEB SCH ×3 (11:50→20:45)
--- NOTE | 2019-02-12 12:13 | PN ---
Teaching Attending Note Name of Resident: Harish Grijalva ATTENDING PHYSICIAN STATEMENT I saw and evaluated the patient. I reviewed the resident's note and discussed the case with the resident. I agree with the resident's findings and plan as documented. SUBJECTIVE: Pt seen and examined in the ICU. Breathing better today but confused. Levophed gtt tapered off. Central line removed as she was pulling on it. OBJECTIVE: Vital Signs Period Temp Pulse Resp BP Sys/Willson Pulse Ox Last 24 Hr 92.7 F-99.5 F 67-99 17-26 92-142/47-117 94-100 Intake & Output 02/09/19 02/10/19 02/11/19 02/12/19 23:59 23:59 23:59 23:59 Intake Total 622.0 251 Output Total 0 Balance 622.0 251 Weight 72.4 kg 69.5 kg Gen: mildly tachypneic at rest Heart: RRR Lung: bilateral rhonchi, wheezes Abd: soft, nontender Ext: no edema CBC, BMP 02/12/19 05:30 02/12/19 05:30 Active Medications Albuterol/Ipratropium (Duoneb -) 1 amp NEB RQID [facility] Aspirin (Ecotrin -) 81 mg PO DAILY [facility] Last Admin: 02/12/19 10:03 Dose: 81 mg Chlorhexidine Gluconate (Hibiclens For Decolonization -) 1 applic TP HS [facility] Last Admin: 02/11/19 22:40 Dose: 1 applic Cinacalcet (Sensipar -) 30 mg PO DAILY [facility] Last Admin: 02/12/19 10:03 Dose: 30 mg Heparin Sodium (Porcine) (Heparin -) 5,000 unit SQ TID [facility] Sodium Chloride (Normal Saline -) 250 mls @ 3,000 mls/hr IV PRN PRN PRN Reason: Hypotension during Dialysis Stop: 02/12/19 13:20 Norepinephrine Bitartrate 8, (000 mcg/ Dextrose) 500 mls @ 18.75 mls/hr IV TITR [facility]; Protocol Last Titration: 02/12/19 06:00 Dose: 0 mcg/min, 0 mls/hr Cefepime HCl 0.5 gm/ Dextrose 100 mls @ 200 mls/hr IVPB DAILY [facility]; Protocol Sodium Chloride (Normal Saline -) 250 mls @ 3,000 mls/hr IV PRN PRN PRN Reason: Hypotension during Dialysis Stop: 02/12/19 15:38 Aztreonam 0.5 gm/ Dextrose 50 mls @ 100 mls/hr IVPB Q12H [facility]; Protocol Last Admin: 02/12/19 09:20 Dose: 100 mls/hr Vancomycin HCl (Vancomycin (Pre-Docked)) 1,000 mg in 250 mls @ 166.667 mls/hr IVPB ONCE ONE; Protocol Stop: 02/12/19 12:29 Last Admin: 02/12/19 11:04 Dose: 166.667 mls/hr Insulin Aspart (Novolog Vial Sliding Scale -) 1 vial SQ ACHS [facility]; Protocol Last Admin: 02/12/19 11:03 Dose: Not Given Mupirocin (Bactroban Ointment (For Decolonization) -) 1 applic NS BID [facility] Stop: 02/16/19 21:59 Last Admin: 02/12/19 10:03 Dose: 1 applic ASSESSMENT AND PLAN: Acute on Chronic Hypercapneic Respiratory Failure Pneumonia Septic Shock r/o Acute COPD Exacerbation ESRD on HD CAD Aortic Stenosis Atrial Fibrillation Thrombocytopenia HTN Altered Mental Status - continue antibiotics - f/u cultures - monitoring off pressors, maintain MAP >65 - repeat ABG - short course of medrol - inhaled bronchodilators standing and PRN - CT head/chest today noncontrast - HD per renal - PO as tolerated - DVT prophylaxis - continue ICU monitoring critical care time spent in reviewing chart, evaluating patient and formulating plan 35 min
[2019-02-12 12:15] LABS: ARTERIAL BLOOD GAS BASE EXCESS 0.9 meq/l (-2-2); ARTERIAL BLOOD GAS PCO2 62.1 mmHg (35-45); ARTERIAL BLOOD GAS PO2 111 mmHg (80-105); ARTERIAL BLOOD GAS pH 7.28 (7.35-7.45)
[2019-02-12 12:23] LABS: ALLENS TEST POSITIVE
--- NOTE | 2019-02-12 12:32 | CON.CARD ---
Consult Consult Specialty:: Cardiology - History of Present Illness History of Present Illness: 83 y/o female with PMH of HTN, DM, ESRD (t//), Afib (not on AC in light of previous GI bleed), CHF, CAD s/p stents presented to the ED form the dialysis center due to hypotension. Patient states that she is always normotensive (with her BPs ranging in the 120's/80's) and in the dialysis center she was noted to be in the 70's/50's- so she was brought to the ER. In the ER, ABG was done showing PH 7.00, PCO2 84,8 and she was placed on BIPAP. she has been feeling well however, denies any fevers/chills, endorses having had a productive cough with white sputum the past week. she never actually received her dialysis today as she was too hypotensive before it started. PMH Atrial fibrillation Bare metal stent of ostial LCx April 01, 2015 Dr. Elizabeth CAD - mLAD 30% , oLCx 90%, RPDA 40% March 05, 2015 Dr. Elizabeth Diabetes mellitus, type II 1996 Dialysis 2010 End stage renal disease Hypertension Hypothyroidism Mildly reduced EF 48% February 2016 Moderate mean PG 23 mmHg February 2016 Severe GI bleed 2006 - History Source History Provided By: Patient, Medical Record - Past Medical History Cardio/Vascular: Yes: AFIB (paroxysmal), CAD, HTN Renal/: Yes: Renal Failure, Hemodialysis ...: No Endocrine: Yes: Diabetes Mellitus - Past Surgical History Past Surgical History: Yes: Joint Replacement (rt hip- 2009, ankle fracture , s/ p plates-- 2005) - Alcohol/Substance Use Hx Alcohol Use: No - Smoking History Smoking history: Former smoker Have you smoked in the past 12 months: No Aproximately how many cigarettes per day: 0 Home Medications - Allergies Allergies/Adverse Reactions: Allergies Allergy/AdvReac Type Severity Reaction Status Date / Time erythromycin base Allergy Severe Swelling Verified 02/11/19 08:30 Penicillins Allergy Severe Swelling Verified 02/11/19 08:30 verapamil [Verapamil] Allergy Severe Swelling Verified 02/11/19 08:30 aspirin AdvReac Nausea Verified 02/11/19 08:30 AQUACEL DRESSING AdvReac Severe Rash Uncoded 02/11/19 08:30 - Home Medications Home Medications: Ambulatory Orders Cinacalcet HCl [Sensipar] 30 mg PO ASDIR 07/22/17 Furosemide [Lasix] 80 mg PO DAILY 07/22/17 Labetalol HCl 300 mg PO BID 07/22/17 Magnesium Oxide 400 mg PO DAILY 07/22/17 Aspirin Coated [Ecotrin -] 81 mg PO DAILY tablet.ec 08/01/17 Folic Acid/Vit B Complex and C [Dialyvite 800 Tablet] 0.8 mg PO DAILY 01/21/19 Insulin (Novolog 70/30) [Novolog Mix 70/30 Vial -] 8 ml SQ ASDIR 01/21/19 Insulin Sliding Scale [Novolog Vial Sliding Scale -] 6 units SQ AM 01/21/19 Levothyroxine [Synthroid -] 175 mcg PO ASDIR 01/21/19 Review of Systems - Review of Systems Constitutional: reports: Malaise, Weakness Eyes: reports: No Symptoms HENT: reports: No Symptoms Neck: reports: No Symptoms Cardiovascular: reports: No Symptoms Gastrointestinal: reports: No Symptoms Genitourinary: reports: No Symptoms Breasts: reports: No Symptoms Reported Musculoskeletal: reports: No Symptoms Integumentary: reports: No Symptoms Neurological: reports: No Symptoms Endocrine: reports: No Symptoms Hematology/Lymphatic: reports: No Symptoms Psychiatric: reports: No Symptoms Vital Signs: Vital Signs Temperature 98.8 F 02/12/19 10:00 Pulse Rate 89 02/12/19 11:40 Respiratory Rate 24 H 02/12/19 11:40 Blood Pressure 123/57 L 02/12/19 11:40 O2 Sat by Pulse Oximetry (%) 100 02/12/19 10:00 Constitutional: Yes: Well Nourished, No Distress, Calm Eyes: Yes: WNL, Conjunctiva Clear, EOM Intact HENT: Yes: WNL, Atraumatic, Normocephalic Neck: Yes: WNL, Supple, Trachea Midline Respiratory: Yes: Diminished Gastrointestinal: Yes: WNL, Normal Bowel Sounds Renal/: Yes: WNL Cardiovascular: Yes: Pulse Irregular Heart Sounds: Yes: S1, S2 Murmur: Yes: Systolic Murmur Musculoskeletal: Yes: WNL Extremities: Yes: WNL Integumentary: Yes: WNL Neurological: Yes: WNL, Alert, Oriented ...Motor Strength: WNL Psychiatric: Yes: WNL, Alert, Oriented - Other Data Labs, Other Data: CBC, BMP 02/12/19 05:30 02/12/19 05:30 INR, PTT INR 1.15 (0.83-1.09) H 02/12/19 05:30 Laboratory Tests 02/11/19 02/11/19 02/11/19 09:12 09:50 09:50 WBC 2.9 L RBC 3.47 L Hgb 11.9 Hct 37.4 MCV 108.0 H MCH 34.2 H MCHC 31.7 L RDW 17.6 H Plt Count 69 L MPV 9.7 Absolute Neuts (auto) 2.0 Neutrophils % 68.9 Lymphocytes % 20.6 Monocytes % 8.0 Eosinophils % 1.9 Basophils % 0.6 Nucleated RBC % 2 H PT with INR INR PTT (Actin FS) Anticoagulation Therapy Puncture Site ABG pH ABG pCO2 at Pt Temp ABG pO2 at Pt Temp ABG HCO3 ABG O2 Sat (Measured) ABG O2 Content ABG Base Excess Jp Test VBG pH POC VBG pCO2 POC VBG pO2 VBG HCO3 VBG O2 Sat (Juan) VBG Base Excess Carboxyhemoglobin Methemoglobin O2 Delivery Device Oxygen Flow Rate Vent Mode Vent Rate Mechanical Rate Pressure Support Vent Sodium 133 L Potassium 4.1 Chloride 98 Carbon Dioxide 26 Anion Gap 10 BUN 56.8 H Creatinine 4.5 H Est GFR (CKD-EPI)AfAm 9.93 Est GFR (CKD-EPI)NonAf 8.57 POC Glucometer Random Glucose 83 Lactic Acid Calcium 8.9 Phosphorus 4.7 Magnesium 2.5 H Total Bilirubin 0.8 AST 24 ALT 12 L Alkaline Phosphatase 177 H Creatine Kinase 30 Troponin I 0.03 Total Protein 7.6 Albumin 3.0 L TSH 0.11 L Free T4 Urine Color Yellow Urine Appearance Cloudy Urine pH Ur Specific [place] Urine Protein Urine Glucose (UA) Urine Ketones Urine Blood Urine Nitrite Urine Bilirubin Urine Urobilinogen Ur Leukocyte Esterase Urine WBC (Auto) >100 Urine RBC (Auto) 5 Urine Casts (Auto) No Result Required. U Pathogenic Cast Auto No Result Required. U Epithel Cells (Auto) Few U Sm Round Cell (Auto) No Result Required. Urine Crystals (Auto) No Result Required. Urine Bacteria (Auto) Many Random Vancomycin 02/11/19 02/11/19 02/11/19 09:50 09:50 09:50 WBC RBC Hgb Hct MCV MCH MCHC RDW Plt Count MPV Absolute Neuts (auto) Neutrophils % Lymphocytes % Monocytes % Eosinophils % Basophils % Nucleated RBC % PT with INR 11.70 INR 0.99 PTT (Actin FS) 32.2 Anticoagulation Therapy Puncture Site ABG pH ABG pCO2 at Pt Temp ABG pO2 at Pt Temp ABG HCO3 ABG O2 Sat (Measured) ABG O2 Content ABG Base Excess Jp Test VBG pH 7.09 L* POC VBG pCO2 88.6 H* POC VBG pO2 43.4 H VBG HCO3 25.5 VBG O2 Sat (Juan) 67.8 L VBG Base Excess -6.5 L Carboxyhemoglobin Methemoglobin O2 Delivery Device Oxygen Flow Rate Vent Mode Vent Rate Mechanical Rate Pressure Support Vent Sodium Potassium Chloride Carbon Dioxide Anion Gap BUN Creatinine Est GFR (CKD-EPI)AfAm Est GFR (CKD-EPI)NonAf POC Glucometer Random Glucose Lactic Acid 0.9 Calcium Phosphorus Magnesium Total Bilirubin AST ALT Alkaline Phosphatase Creatine Kinase Troponin I Total Protein Albumin TSH Free T4 Urine Color Urine Appearance Urine pH Ur Specific [place] Urine Protein Urine Glucose (UA) Urine Ketones Urine Blood Urine Nitrite Urine Bilirubin Urine Urobilinogen Ur Leukocyte Esterase Urine WBC (Auto) Urine RBC (Auto) Urine Casts (Auto) U Pathogenic Cast Auto U Epithel Cells (Auto) U Sm Round Cell (Auto) Urine Crystals (Auto) Urine Bacteria (Auto) Random Vancomycin 02/11/19 02/11/19 02/11/19 10:43 10:50 15:30 WBC RBC Hgb Hct MCV MCH MCHC RDW Plt Count MPV Absolute Neuts (auto) Neutrophils % Lymphocytes % Monocytes % Eosinophils % Basophils % Nucleated RBC % PT with INR INR PTT (Actin FS) Anticoagulation Therapy No Result Required. Puncture Site Right radial ABG pH 7.00 L* ABG pCO2 at Pt Temp 84.8 H* ABG pO2 at Pt Temp 147 H ABG HCO3 24.4 ABG O2 Sat (Measured) 98.2 H ABG O2 Content 15.5 ABG Base Excess -6.9 L Jp Test Positive VBG pH POC VBG pCO2 POC VBG pO2 VBG HCO3 VBG O2 Sat (Juan) VBG Base Excess Carboxyhemoglobin 1.3 Methemoglobin 0.5 O2 Delivery Device No Result Required. Oxygen Flow Rate Yes Vent Mode No Result Required. Vent Rate No Result Required. Mechanical Rate No Result Required. Pressure Support Vent No Result Required. Sodium Potassium Chloride Carbon Dioxide Anion Gap BUN Creatinine Est GFR (CKD-EPI)AfAm Est GFR (CKD-EPI)NonAf POC Glucometer Random Glucose Lactic Acid Calcium Phosphorus Magnesium Total Bilirubin AST ALT Alkaline Phosphatase Creatine Kinase Troponin I Total Protein Albumin TSH 0.09 L Free T4 1.53 H Urine Color Urine Appearance Urine pH Ur Specific [place] Urine Protein Urine Glucose (UA) Urine Ketones Urine Blood Urine Nitrite Urine Bilirubin Urine Urobilinogen Ur Leukocyte Esterase Urine WBC (Auto) Urine RBC (Auto) Urine Casts (Auto) U Pathogenic Cast Auto U Epithel Cells (Auto) U Sm Round Cell (Auto) Urine Crystals (Auto) Urine Bacteria (Auto) Random Vancomycin 02/11/19 02/11/19 02/11/19 16:05 18:13 21:05 WBC RBC Hgb Hct MCV MCH MCHC RDW Plt Count MPV Absolute Neuts (auto) Neutrophils % Lymphocytes % Monocytes % Eosinophils % Basophils % Nucleated RBC % PT with INR INR PTT (Actin FS) Anticoagulation Therapy No Result Required. Puncture Site Right radial ABG pH 7.29 L ABG pCO2 at Pt Temp 66.8 H ABG pO2 at Pt Temp 90.5 ABG HCO3 30.9 H ABG O2 Sat (Measured) 96.8 ABG O2 Content 15.8 ABG Base Excess 3.1 H Jp Test No Result Required. VBG pH POC VBG pCO2 POC VBG pO2 VBG HCO3 VBG O2 Sat (Juan) VBG Base Excess Carboxyhemoglobin Methemoglobin O2 Delivery Device Bipap Oxygen Flow Rate 35% Vent Mode S/t Vent Rate 12 Mechanical Rate No Result Required. Pressure Support Vent 10/6 Sodium Potassium Chloride Carbon Dioxide Anion Gap BUN Creatinine Est GFR (CKD-EPI)AfAm Est GFR (CKD-EPI)NonAf POC Glucometer 155 Random Glucose Lactic Acid Calcium Phosphorus Magnesium Total Bilirubin AST ALT Alkaline Phosphatase Creatine Kinase Troponin I Total Protein Albumin TSH Free T4 Urine Color Urine Appearance Urine pH Ur Specific [place] Urine Protein Urine Glucose (UA) Urine Ketones Urine Blood Urine Nitrite Urine Bilirubin Urine Urobilinogen Ur Leukocyte Esterase Urine WBC (Auto) Urine RBC (Auto) Urine Casts (Auto) U Pathogenic Cast Auto U Epithel Cells (Auto) U Sm Round Cell (Auto) Urine Crystals (Auto) Urine Bacteria (Auto) Random Vancomycin 18.4 02/11/19 02/12/19 02/12/19 21:40 05:30 05:30 WBC 4.5 RBC 3.30 L Hgb 11.4 Hct 34.7 MCV 105.2 H MCH 34.5 H MCHC 32.8 RDW 17.6 H Plt Count 72 L MPV 9.4 Absolute Neuts (auto) 3.6 Neutrophils % 80.2 Lymphocytes % 10.5 D Monocytes % 8.2 Eosinophils % 0.6 Basophils % 0.5 Nucleated RBC % 1 H PT with INR 13.60 H INR 1.15 H PTT (Actin FS) 32.0 Anticoagulation Therapy Puncture Site ABG pH ABG pCO2 at Pt Temp ABG pO2 at Pt Temp ABG HCO3 ABG O2 Sat (Measured) ABG O2 Content ABG Base Excess Jp Test VBG pH POC VBG pCO2 POC VBG pO2 VBG HCO3 VBG O2 Sat (Juan) VBG Base Excess Carboxyhemoglobin Methemoglobin O2 Delivery Device Oxygen Flow Rate Vent Mode Vent Rate Mechanical Rate Pressure Support Vent Sodium Potassium Chloride Carbon Dioxide Anion Gap BUN Creatinine Est GFR (CKD-EPI)AfAm Est GFR (CKD-EPI)NonAf POC Glucometer 76 Random Glucose Lactic Acid Calcium Phosphorus Magnesium Total Bilirubin AST ALT Alkaline Phosphatase Creatine Kinase Troponin I Total Protein Albumin TSH Free T4 Urine Color Urine Appearance Urine pH Ur Specific [place] Urine Protein Urine Glucose (UA) Urine Ketones Urine Blood Urine Nitrite Urine Bilirubin Urine Urobilinogen Ur Leukocyte Esterase Urine WBC (Auto) Urine RBC (Auto) Urine Casts (Auto) U Pathogenic Cast Auto U Epithel Cells (Auto) U Sm Round Cell (Auto) Urine Crystals (Auto) Urine Bacteria (Auto) Random Vancomycin 02/12/19 02/12/19 05:30 11:13 WBC RBC Hgb Hct MCV MCH MCHC RDW Plt Count MPV Absolute Neuts (auto) Neutrophils % Lymphocytes % Monocytes % Eosinophils % Basophils % Nucleated RBC % PT with INR INR PTT (Actin FS) Anticoagulation Therapy Puncture Site Right brachial ABG pH 7.28 L ABG pCO2 at Pt Temp 62.1 H ABG pO2 at Pt Temp 111 H ABG HCO3 28.2 H ABG O2 Sat (Measured) 98.0 ABG O2 Content 15.1 ABG Base Excess 0.9 Jp Test Positive VBG pH POC VBG pCO2 POC VBG pO2 VBG HCO3 VBG O2 Sat (Juan) VBG Base Excess Carboxyhemoglobin Methemoglobin O2 Delivery Device Oxygen Flow Rate Yes Vent Mode Vent Rate Mechanical Rate Pressure Support Vent Sodium 137 Potassium 3.4 L Chloride 100 Carbon Dioxide 32 Anion Gap 5 L BUN 28.6 H Creatinine 3.1 H Est GFR (CKD-EPI)AfAm 15.58 Est GFR (CKD-EPI)NonAf 13.44 POC Glucometer Random Glucose 96 Lactic Acid Calcium 8.4 L Phosphorus 2.9 Magnesium 2.1 Total Bilirubin 0.9 AST 19 ALT 11 L Alkaline Phosphatase 169 H Creatine Kinase Troponin I Total Protein 7.1 Albumin 2.9 L TSH Free T4 Urine Color Urine Appearance Urine pH Ur Specific [place] Urine Protein Urine Glucose (UA) Urine Ketones Urine Blood Urine Nitrite Urine Bilirubin Urine Urobilinogen Ur Leukocyte Esterase Urine WBC (Auto) Urine RBC (Auto) Urine Casts (Auto) U Pathogenic Cast Auto U Epithel Cells (Auto) U Sm Round Cell (Auto) Urine Crystals (Auto) Urine Bacteria (Auto) Random Vancomycin Imaging - Results Chest X-ray: Image Reviewed (billateral effusions and infiltrates) EKG: Image Reviewed (af incomplete rbbb) Assessment/Plan Acute on Chronic Hypercapneic Respiratory Failure Pneumonia Septic Shock r/o Acute COPD Exacerbation ESRD on HD CAD Aortic Stenosis Atrial Fibrillation Thrombocytopenia HTN Altered Mental Status Plan echo ICU monitoring ABX HD ivf/pressors as needed cc time spent 75 min
--- NOTE | 2019-02-12 12:37 | PN ---
Progress Note, Physician History of Present Illness: 83 y/o female with PMH of HTN, DM, ESRD (t//), Afib (not on AC in light of previous GI bleed), CHF, CAD s/p stents presented to the ED form the dialysis center due to hypotension. Patient states that she is always normotensive (with her BPs ranging in the 120's/80's) and in the dialysis center she was noted to be in the 70's/50's- so she was brought to the ER. In the ER, ABG was done showing PH 7.00, PCO2 84,8 and she was placed on BIPAP. she has been feeling well however, denies any fevers/chills, endorses having had a productive cough with white sputum the past week. she never actually received her dialysis today as she was too hypotensive before it started. PMH Atrial fibrillation Bare metal stent of ostial LCx April 01, 2015 Dr. Elizabeth CAD - mLAD 30% , oLCx 90%, RPDA 40% March 05, 2015 Dr. Elizabeth Diabetes mellitus, type II 1996 Dialysis 2010 End stage renal disease Hypertension Hypothyroidism Mildly reduced EF 48% February 2016 Moderate mean PG 23 mmHg February 2016 Severe GI bleed 2006 - Current Medication List Current Medications: Active Medications Albuterol/Ipratropium (Duoneb -) 1 amp NEB RQID [facility] Aspirin (Ecotrin -) 81 mg PO DAILY [facility] Last Admin: 02/12/19 10:03 Dose: 81 mg Chlorhexidine Gluconate (Hibiclens For Decolonization -) 1 applic TP HS [facility] Last Admin: 02/11/19 22:40 Dose: 1 applic Cinacalcet (Sensipar -) 30 mg PO DAILY [facility] Last Admin: 02/12/19 10:03 Dose: 30 mg Heparin Sodium (Porcine) (Heparin -) 5,000 unit SQ TID [facility] Sodium Chloride (Normal Saline -) 250 mls @ 3,000 mls/hr IV PRN PRN PRN Reason: Hypotension during Dialysis Stop: 02/12/19 13:20 Norepinephrine Bitartrate 8, (000 mcg/ Dextrose) 500 mls @ 18.75 mls/hr IV TITR ERNESTINE; Protocol Last Titration: 02/12/19 06:00 Dose: 0 mcg/min, 0 mls/hr Cefepime HCl 0.5 gm/ Dextrose 100 mls @ 200 mls/hr IVPB DAILY [facility]; Protocol Sodium Chloride (Normal Saline -) 250 mls @ 3,000 mls/hr IV PRN PRN PRN Reason: Hypotension during Dialysis Stop: 02/12/19 15:38 Aztreonam 0.5 gm/ Dextrose 50 mls @ 100 mls/hr IVPB Q12H [facility]; Protocol Last Admin: 02/12/19 09:20 Dose: 100 mls/hr Insulin Aspart (Novolog Vial Sliding Scale -) 1 vial SQ ACHS [facility]; Protocol Last Admin: 02/12/19 11:03 Dose: Not Given Methylprednisolone Sodium Succinate (Solu-Medrol -) 40 mg IVPUSH Q6H-IV ERNESTINE Mupirocin (Bactroban Ointment (For Decolonization) -) 1 applic NS BID ERNESTINE Stop: 02/16/19 21:59 Last Admin: 02/12/19 10:03 Dose: 1 applic - Objective Vital Signs: Vital Signs Temperature 98.8 F 02/12/19 10:00 Pulse Rate 89 02/12/19 11:40 Respiratory Rate 24 H 02/12/19 11:40 Blood Pressure 123/57 L 02/12/19 11:40 O2 Sat by Pulse Oximetry (%) 100 02/12/19 10:00 Eyes: Yes: WNL, Conjunctiva Clear, EOM Intact HENT: Yes: WNL, Atraumatic, Normocephalic Neck: Yes: WNL, Supple, Trachea Midline Cardiovascular: Yes: Pulse Irregular, Murmur, S1, S2 Respiratory: Yes: Diminished Gastrointestinal: Yes: WNL, Normal Bowel Sounds Genitourinary: Yes: WNL Musculoskeletal: Yes: WNL Extremities: Yes: WNL Edema: No Integumentary: Yes: WNL Neurological: Yes: WNL, Alert, Oriented ...Motor Strength: WNL Psychiatric: Yes: WNL Labs: CBC, BMP 02/12/19 05:30 02/12/19 05:30 INR, PTT INR 1.15 (0.83-1.09) H 02/12/19 05:30 Assessment/Plan Acute on Chronic Hypercapneic Respiratory Failure Pneumonia Septic Shock r/o Acute COPD Exacerbation ESRD on HD CAD Aortic Stenosis Atrial Fibrillation Thrombocytopenia HTN Altered Mental Status Plan echo ICU monitoring ABX HD ivf/pressors as needed cc time spent 37 min
[2019-02-12] MEDS ORDERED: SODIUM CHLORIDE 250 ML IV PRN (12:42)
--- NOTE | 2019-02-12 12:42 | PN ---
Progress Note (short form) - Note Progress Note: Renal follow up for ESRD with volume overload Pt seen and examined in the ICU awake and alert still has labored breathing no chest pain, + cough s/p Hd yesterday with 3k UF Vital Signs Temperature 98.8 F 02/12/19 10:00 Pulse Rate 89 02/12/19 11:40 Respiratory Rate 24 H 02/12/19 11:40 Blood Pressure 123/57 L 02/12/19 11:40 O2 Sat by Pulse Oximetry (%) 100 02/12/19 10:00 Intake & Output 02/09/19 02/10/19 02/11/19 02/12/19 23:59 23:59 23:59 23:59 Intake Total 622.0 251 Output Total 0 Balance 622.0 251 Weight 72.4 kg 69.5 kg NAD on NC O2 irregular, no M/R + rales on lung exam + edema in LE left arm AVF + bruit CBC, BMP 02/12/19 05:30 02/12/19 05:30 Current Medications Albuterol/Ipratropium (Duoneb -) 1 amp NEB RQID ERNESTINE Aspirin (Ecotrin -) 81 mg PO DAILY [facility] Last Admin: 02/12/19 10:03 Dose: 81 mg Chlorhexidine Gluconate (Hibiclens For Decolonization -) 1 applic TP HS [facility] Last Admin: 02/11/19 22:40 Dose: 1 applic Cinacalcet (Sensipar -) 30 mg PO DAILY [facility] Last Admin: 02/12/19 10:03 Dose: 30 mg Heparin Sodium (Porcine) (Heparin -) 5,000 unit SQ TID [facility] Sodium Chloride (Normal Saline -) 250 mls @ 3,000 mls/hr IV PRN PRN PRN Reason: Hypotension during Dialysis Stop: 02/12/19 13:20 Norepinephrine Bitartrate 8, (000 mcg/ Dextrose) 500 mls @ 18.75 mls/hr IV TITR ERNESTINE; Protocol Last Titration: 02/12/19 06:00 Dose: 0 mcg/min, 0 mls/hr Cefepime HCl 0.5 gm/ Dextrose 100 mls @ 200 mls/hr IVPB DAILY ERNESTINE; Protocol Sodium Chloride (Normal Saline -) 250 mls @ 3,000 mls/hr IV PRN PRN PRN Reason: Hypotension during Dialysis Stop: 02/12/19 15:38 Aztreonam 0.5 gm/ Dextrose 50 mls @ 100 mls/hr IVPB Q12H ERNESTINE; Protocol Last Admin: 02/12/19 09:20 Dose: 100 mls/hr Insulin Aspart (Novolog Vial Sliding Scale -) 1 vial SQ ACHS ERNESTINE; Protocol Last Admin: 02/12/19 11:03 Dose: Not Given Methylprednisolone Sodium Succinate (Solu-Medrol -) 40 mg IVPUSH Q6H-IV ERNESTINE Mupirocin (Bactroban Ointment (For Decolonization) -) 1 applic NS BID ERNESTINE Stop: 02/16/19 21:59 Last Admin: 02/12/19 10:03 Dose: 1 applic 83 year old woman with hx of ESRD on HD ([facility]), CHF with LV dysfunction, Afib (not on A/C), Hypertension, , CAD s/p PCI who presented from outpatient dialysis with hypotension. #ESRD on HD #Hypotensoin due to cardiogenic shock vs. sepsis #CHF with LV dysfunction #CAD #Hypercarbic respiratory acidosis #Thrombocytopenia #Renal Osteodystrophy will plan for isolated UF today with goal fluid removal of 2L, regular maintaince dialysis tomorrow f/u blood and urine cultures hypercarbia improved O2 via NC will not use Heparin with dialysis Cardiology follow up Kenny Yeboah DO
[2019-02-12] MEDS: methylPREDNISolone NA SUCC 40 MG/1 ML VIAL IVPUSH SCH ×3 (13:28→21:26)
[2019-02-12] MEDS: HEPARIN NA (PORCINE) 5,000 UNITS/ML 1ML VIAL SQ SCH ×2 (13:29→21:26)
--- NOTE | 2019-02-12 14:33 | PN ---
Physical Exam: SUBJECTIVE: Patient seen and examined at bedside. Pt confused. Believes she is at [facility]. When shown the [facility] logo of the lab coat, pt states, "that could easily be duplicated". Pt states she is breathing well. OBJECTIVE: Vital Signs Period Temp Pulse Resp BP Sys/Willson Pulse Ox Last 24 Hr 92.8 F-99.5 F 75-99 18-26 103-142/54-117 97-100 Gen: AAOx2, NAD HEENT: NCAT, EOMI Neck: Supple, no jvd Cardio: irregular, s1s2, no mrg Pulm: bibasilar rales Abd: soft, nonteder, nondistended Ext: no edema Laboratory Results - last 24 hr 02/11/19 02/11/19 02/11/19 15:30 16:05 18:13 WBC RBC Hgb Hct MCV MCH MCHC RDW Plt Count MPV Absolute Neuts (auto) Neutrophils % Lymphocytes % Monocytes % Eosinophils % Basophils % Nucleated RBC % PT with INR INR PTT (Actin FS) Anticoagulation Therapy Puncture Site ABG pH ABG pCO2 at Pt Temp ABG pO2 at Pt Temp ABG HCO3 ABG O2 Sat (Measured) ABG O2 Content ABG Base Excess Jp Test O2 Delivery Device Oxygen Flow Rate Vent Mode Vent Rate Mechanical Rate Pressure Support Vent Sodium Potassium Chloride Carbon Dioxide Anion Gap BUN Creatinine Est GFR (CKD-EPI)AfAm Est GFR (CKD-EPI)NonAf POC Glucometer 155 Random Glucose Calcium Phosphorus Magnesium Total Bilirubin AST ALT Alkaline Phosphatase Total Protein Albumin TSH 0.09 L Free T4 1.53 H Random Vancomycin 18.4 02/11/19 02/11/19 02/12/19 21:05 21:40 05:30 WBC 4.5 RBC 3.30 L Hgb 11.4 Hct 34.7 MCV 105.2 H MCH 34.5 H MCHC 32.8 RDW 17.6 H Plt Count 72 L MPV 9.4 Absolute Neuts (auto) 3.6 Neutrophils % 80.2 Lymphocytes % 10.5 D Monocytes % 8.2 Eosinophils % 0.6 Basophils % 0.5 Nucleated RBC % 1 H PT with INR INR PTT (Actin FS) Anticoagulation Therapy No Result Required. Puncture Site Right radial ABG pH 7.29 L ABG pCO2 at Pt Temp 66.8 H ABG pO2 at Pt Temp 90.5 ABG HCO3 30.9 H ABG O2 Sat (Measured) 96.8 ABG O2 Content 15.8 ABG Base Excess 3.1 H Jp Test No Result Required. O2 Delivery Device Bipap Oxygen Flow Rate 35% Vent Mode S/t Vent Rate 12 Mechanical Rate No Result Required. Pressure Support Vent 10/6 Sodium Potassium Chloride Carbon Dioxide Anion Gap BUN Creatinine Est GFR (CKD-EPI)AfAm Est GFR (CKD-EPI)NonAf POC Glucometer 76 Random Glucose Calcium Phosphorus Magnesium Total Bilirubin AST ALT Alkaline Phosphatase Total Protein Albumin TSH Free T4 Random Vancomycin 02/12/19 02/12/19 02/12/19 05:30 05:30 11:13 WBC RBC Hgb Hct MCV MCH MCHC RDW Plt Count MPV Absolute Neuts (auto) Neutrophils % Lymphocytes % Monocytes % Eosinophils % Basophils % Nucleated RBC % PT with INR 13.60 H INR 1.15 H PTT (Actin FS) 32.0 Anticoagulation Therapy Puncture Site Right brachial ABG pH 7.28 L ABG pCO2 at Pt Temp 62.1 H ABG pO2 at Pt Temp 111 H ABG HCO3 28.2 H ABG O2 Sat (Measured) 98.0 ABG O2 Content 15.1 ABG Base Excess 0.9 Jp Test Positive O2 Delivery Device Oxygen Flow Rate Yes Vent Mode Vent Rate Mechanical Rate Pressure Support Vent Sodium 137 Potassium 3.4 L Chloride 100 Carbon Dioxide 32 Anion Gap 5 L BUN 28.6 H Creatinine 3.1 H Est GFR (CKD-EPI)AfAm 15.58 Est GFR (CKD-EPI)NonAf 13.44 POC Glucometer Random Glucose 96 Calcium 8.4 L Phosphorus 2.9 Magnesium 2.1 Total Bilirubin 0.9 AST 19 ALT 11 L Alkaline Phosphatase 169 H Total Protein 7.1 Albumin 2.9 L TSH Free T4 Random Vancomycin Active Medications Generic Name Dose Route Start Last Admin Trade Name Freq PRN Reason Stop Dose Admin Albuterol/Ipratropium 1 amp 02/12/19 12:00 Duoneb - NEB RQID ERNESTINE Aspirin 81 mg 02/12/19 10:00 02/12/19 10:03 Ecotrin - PO 81 mg DAILY ERNESTINE Administration Chlorhexidine Gluconate 1 applic 02/11/19 22:00 02/11/19 22:40 Hibiclens For Decolonization - TP 1 applic HS ERNESTINE Administration Cinacalcet 30 mg 02/11/19 14:52 02/12/19 10:03 Sensipar - PO 30 mg DAILY ERNESTINE Administration Heparin Sodium (Porcine) 5,000 unit 02/12/19 14:00 02/12/19 13:29 Heparin - SQ 5,000 unit TID ERNESTINE Administration Norepinephrine Bitartrate 8, 500 mls @ 18.75 mls/hr 02/11/19 13:45 02/12/19 06:00 000 mcg/ Dextrose IV 0 mcg/min TITR ERNESTINE 0 mls/hr Titration Protocol 5 MCG/MIN Cefepime HCl 0.5 gm/ Dextrose 100 mls @ 200 mls/hr 02/12/19 10:00 IVPB DAILY ERNESTINE Protocol Sodium Chloride 250 mls @ 3,000 mls/hr 02/11/19 15:38 Normal Saline - IV 02/12/19 15:38 PRN PRN Hypotension during Dialysis Aztreonam 0.5 gm/ Dextrose 50 mls @ 100 mls/hr 02/11/19 21:00 02/12/19 09:20 IVPB 100 mls/hr Q12H ERNESTINE Administration Protocol Sodium Chloride 250 mls @ 3,000 mls/hr 02/12/19 12:42 Normal Saline - IV 02/13/19 12:43 PRN PRN Hypotension during Dialysis Insulin Aspart 1 vial 02/11/19 16:30 02/12/19 11:03 Novolog Vial Sliding Scale - SQ Not Given ACHS ERNESTINE Protocol Methylprednisolone Sodium Succinate 40 mg 02/12/19 12:45 02/12/19 13:28 Solu-Medrol - IVPUSH 40 mg Q6H-IV ERNESTINE Administration Mupirocin 1 applic 02/11/19 22:00 02/12/19 10:03 Bactroban Ointment (For Decolonization) - NS 02/16/19 21:59 1 applic BID ERNESTINE Administration ASSESSMENT/PLAN: Pt is an 83 y/o F with PMH HTN, CHF, CAD s/p stents, ESRD (t//), DM presents to the ED after being sent from dialysis due to hypotension (prior to HD). Pt was found to have sepsis 2/2 PNA. Pt was transferred to ICU for hypotension. #Septic shock 2/2 PNA -BCx pending -CXR with R infiltrate -hypothermia, hypotension, bradycardia resolved. Now afebrile and without leukocytosis -Vanc, cefepime -CT chest -ID #Hyperthyroidism -TSH suppressed & with elevated t4 -Synthroid noted in home meds. ? dose adjustment as out pt #acute hypercapnic resp failure -Pt required NIPPV initially -resp acidosis with concominant metab alk, ? 2/2 volume contraction -recent abg improved #ESRD -HD -dialyzed 02/11/2019 -nephro on board Harish Grijalva MD PGY-2 IM, ICU Visit type - Emergency Visit Emergency Visit: No - New Patient This patient is new to me today: No - Critical Care Critical Care patient: Yes Total Critical Care Time (in minutes): 35 Critical Care Statement: The care of this patient involved high complexity decision making to prevent further life threatening deterioration of the patient 's condition and/or to evaluate & treat vital organ system(s) failure or risk of failure.
[2019-02-12] MEDS: NOREPINEPHRINE BITARTRATE 8,000 MCG in DEXTROSE 5%-WATER - 492 ML IV SCH (14:36)
--- NOTE | 2019-02-12 15:24 | ECHO ---
Name: CHINTANLEIDY MATHIS Exam:Adult Echocardiogram Study Date: 02/12/2019 01:42 PM Age: 83 yrs Reason For Study: LV Function Height: 70 in Weight: 153 lb BSA: 1.9 m2 BP: 126/60 mmHg MMode/2D Measurements & Calculations IVSd: 0.80 cm Ao root diam: 2.4 cm LVIDd: 5.5 cm LA dimension: 4.4 cm LVIDs: 4.1 cm ACS: 1.1 cm LVPWd: 0.74 cm EDV(Teich): 144.8 ml LVOT diam: 2.0 cm ESV(Teich): 75.2 ml LAV (MOD-bp): 88.6 ml RV S Fadi: 7.3 cm/sec Doppler Measurements & Calculations Ao V2 max: 291.5 cm/sec LV V1 max P.6 mmHg Ao max P.0 mmHg LV V1 mean P.82 mmHg Ao V2 mean: 186.9 cm/sec LV V1 max: 64.0 cm/sec Ao mean P.3 mmHg LV V1 mean: 41.8 cm/sec Ao V2 VTI: 63.8 cm LV V1 VTI: 13.5 cm DAMARI(I,D): 0.69 cm2 DAMARI(V,D): 0.71 cm2 MR max fadi: 477.8 cm/sec SV(LVOT): 43.8 ml MR max P.3 mmHg TR max fadi: 434.4 cm/sec Med Peak E' Fadi: 3.6 cm/sec TR max P.5 mmHg Procedure A two-dimensional transthoracic echocardiogram with color flow and Doppler was performed. The study w as technically difficult with many images being suboptimal in quality. Left Ventricle The left ventricle is grossly normal size. The left ventricle is not well visualized. Left ventricula r systolic function is mildly reduced. There is mild global hypokinesis of the left ventricle. Right Ventricle The right ventricle is moderately dilated. The right ventricular systolic function is moderate to sev erely reduced. Atria The left atrium is moderately dilated. The right atrium is moderately dilated. Mitral Valve There is mild mitral valve thickening. There is no mitral valve stenosis. There is moderate mitral regurgitation. Tricuspid Valve There is moderate tricuspid valve thickening. There is no tricuspid stenosis. There is severe tricusp id regurgitation. There is severe pulmonary hypertension. Right ventricular systolic pressure is elevate d at >60mmHg. Aortic Valve The aortic valve is not well visualized. There is moderate aortic sclerosis.;. There is moderate aort ic valve thickening. Mild to moderate valvular aortic stenosis. No aortic regurgitation is present. Pulmonic Valve The pulmonic valve is not well visualized. Great Vessels The aortic root is normal size. Pericardium/Pleura There is no pericardial effusion. Interpretation Summary There is moderate mitral regurgitation. Left ventricular systolic function is mildly reduced. There is mild global hypokinesis of the left ventricle. The left ventricle is grossly normal size. The left atrium is moderately dilated. The right atrium is moderately dilated. There is moderate tricuspid valve thickening. There is severe tricuspid regurgitation. There is severe pulmonary hypertension. Right ventricular systolic pressure is elevated at >60mmHg. The aortic valve is not well visualized. There is moderate aortic sclerosis.; There is moderate aortic valve thickening. Mild to moderate valvular aortic stenosis. The right ventricle is moderately dilated. The right ventricular systolic function is moderate to severely reduced. The left ventricle is not well visualized. The study was technically difficult with many images being suboptimal in quality. MD Abrahan Song 02/12/2019 03:24 PM
--- NOTE | 2019-02-12 17:35 | CONSULT ---
Consult Consult Specialty:: Endocrinology Referred by:: Dr Shah Reason for Consultation:: Abnormal TFT - History of Present Illness Chief Complaint: Hypotension History of Present Illness: This is a 83 year old woman with h/o ESRD on HD , Hypothyroidism for many years , CHF with LV dysfunction, Afib (not on A/C), Hypertension, , CAD s/p PCI who presented from outpatient dialysis with hypotension. Pt seen and examined in the ICU. On Dopamine gtt. Denies any chest pain or sob at the present time. Reports that she felt tired and cold but denies any fevers, chills, abd pain, cough, N/V/D. Pt denies any anxiety or CP/Palpitations. - History Source History Provided By: Patient, Medical Record - Past Medical History Cardio/Vascular: Yes: AFIB (paroxysmal), CAD, HTN Renal/: Yes: Renal Failure, Hemodialysis ...: No Endocrine: Yes: Diabetes Mellitus, Hypothyroidism - Past Surgical History Past Surgical History: Yes: Joint Replacement (rt hip- 2009, ankle fracture , s/ p plates-- 2005) - Alcohol/Substance Use Hx Alcohol Use: No - Smoking History Smoking history: Former smoker Have you smoked in the past 12 months: No Aproximately how many cigarettes per day: 0 Home Medications - Allergies Allergies/Adverse Reactions: Allergies Allergy/AdvReac Type Severity Reaction Status Date / Time erythromycin base Allergy Severe Swelling Verified 02/11/19 08:30 Penicillins Allergy Severe Swelling Verified 02/11/19 08:30 verapamil [Verapamil] Allergy Severe Swelling Verified 02/11/19 08:30 aspirin AdvReac Nausea Verified 02/11/19 08:30 AQUACEL DRESSING AdvReac Severe Rash Uncoded 02/11/19 08:30 - Home Medications Home Medications: Ambulatory Orders Cinacalcet HCl [Sensipar] 30 mg PO ASDIR 07/22/17 Furosemide [Lasix] 80 mg PO DAILY 07/22/17 Labetalol HCl 300 mg PO BID 07/22/17 Magnesium Oxide 400 mg PO DAILY 07/22/17 Aspirin Coated [Ecotrin -] 81 mg PO DAILY tablet.ec 08/01/17 Folic Acid/Vit B Complex and C [Dialyvite 800 Tablet] 0.8 mg PO DAILY 01/21/19 Insulin (Novolog 70/30) [Novolog Mix 70/30 Vial -] 8 ml SQ ASDIR 01/21/19 Insulin Sliding Scale [Novolog Vial Sliding Scale -] 6 units SQ AM 01/21/19 Levothyroxine [Synthroid -] 175 mcg PO ASDIR 01/21/19 Family Disease History - Family Disease History Family Disease History: Other: Sister (Hypothyroidism) Review of Systems - Review of Systems Constitutional: reports: Loss of Appetite Eyes: reports: No Symptoms HENT: reports: No Symptoms Neck: reports: No Symptoms Cardiovascular: reports: No Symptoms Respiratory: reports: No Symptoms Gastrointestinal: reports: No Symptoms Neurological: reports: No Symptoms Endocrine: reports: No Symptoms Physical Exam Vital Signs: Vital Signs Temperature 97.1 F L 02/12/19 17:22 Pulse Rate 82 02/12/19 17:22 Respiratory Rate 24 H 02/12/19 17:22 Blood Pressure 127/55 L 02/12/19 17:22 O2 Sat by Pulse Oximetry (%) 100 02/12/19 10:00 Constitutional: Yes: No Distress, Calm Eyes: Yes: Conjunctiva Clear, EOM Intact HENT: Yes: Atraumatic, Normocephalic Neck: Yes: Supple, Trachea Midline Cardiovascular: Yes: Regular Rate and Rhythm Respiratory: Yes: Regular, CTA Bilaterally Gastrointestinal: Yes: Normal Bowel Sounds Extremities: Yes: WNL Edema: No Neurological: Yes: Alert, Oriented Labs: CBC, BMP 02/12/19 05:30 02/12/19 05:30 Assessment/Plan AP; Septic shock Hypothyroidism: On LT4 175mcg daily as per pt. Was on the dose on review of [facility] med list CHF TSH 0.09 FT4 1.53 Hold LT4 for now Repeat TSH with FT4 in 2 days Will f/u
[2019-02-12] MEDS ORDERED: AZTREONAM 1 GM VIAL (RESTRICTED TO ID) ONE (21:09)
[2019-02-12] MEDS ORDERED: DEXTROSE 5%-WATER - 50 ML IVPB ONE (21:09)
[2019-02-12] MEDS: CHLORHEXIDINE GLUCONATE 4% CLEANSER FOR DECOLONIZATION TP SCH (21:27)
[2019-02-13] MEDS: methylPREDNISolone NA SUCC 40 MG/1 ML VIAL IVPUSH SCH ×2 (03:26→08:52)
[2019-02-13] MEDS: HEPARIN NA (PORCINE) 5,000 UNITS/ML 1ML VIAL SQ SCH ×4 (05:54→22:06)
[2019-02-13] MEDS: INSULIN SLIDING SCALE (NOVOLOG) 1 VIAL SQ SCH ×4 (06:08→22:03)
[2019-02-13] MEDS: ALBUTEROL SO4 2.5/IPRATROPIUM 0.5 INH SOL 3 ML VIAL.NEB. NEB SCH ×4 (07:15→20:50)
[2019-02-13 07:57] LABS: ALBUMIN 2.9 g/dl (3.4-5.0); BILIRUBIN,TOTAL 0.9 mg/dL (0.2-1); BLOOD UREA NITROGEN 37.4 mg/dL (7-18); CALCIUM 8.6 mg/dL (8.5-10.1); CREATININE 4.1 mg/dL (0.55-1.3); PHOSPHOROUS 3.9 mg/dL (2.5-4.9); POTASSIUM 3.7 mmol/L (3.5-5.1); TOT PROT 7.5 g/dl (6.4-8.2)
[2019-02-13 08:19] LABS: HEMATOCRIT 35.6 % (32.4-45.2); HEMOGLOBIN 11.5 GM/dL (10.7-15.3); MCH 34.2 pg (25.7-33.7); MCHC 32.2 g/dl (32.0-36.0); MEAN CELL VOLUME 106.4 fl (80-96); MEAN PLT VOLUME 9.3 fl (7.5-11.1); PLATELET COUNT 72 K/MM3 (134-434); RBC 3.34 M/mm3 (3.60-5.2); RDW 17.4 % (11.6-15.6)
--- NOTE | 2019-02-13 08:25 | PN ---
Physical Exam: SUBJECTIVE: Patient seen and examined at bedside- no acute events overnight' patient states she is feeling better- feels that her bretahing is improving though she is still having a productive cough- she denies any CP/SOB/N/V fevers or chills patient is currently getting dialysis OBJECTIVE: Vital Signs Period Temp Pulse Resp BP Sys/Willson Pulse Ox Last 24 Hr 97.1 F-98.8 F 78-98 16-24 110-135/47-89 98-100 GENERAL: The patient is awake, alert, and fully oriented, in no acute distress. HEAD: Normal with no signs of trauma. EYES: PEERLA: EOMI; no scleral icterus NECK: no JVD; no lymphadenopathy LUNGS: rales appreciated at the bases (R>L) HEART: irregularly irregular, S1, S2 without murmur, rub or gallop. ABDOMEN: Soft, nontender, nondistended, normoactive bowel sounds, no guarding, no rebound, no hepatosplenomegaly, no masses. EXTREMITIES: 2+ pulses, warm, well-perfused, no edema. PSYCH: Normal mood, normal affect. SKIN: Warm, dry, normal turgor, no rashes or lesions noted Laboratory Results - last 24 hr 02/12/19 02/12/19 02/12/19 06:42 10:58 11:13 Puncture Site Right brachial ABG pH 7.28 L ABG pCO2 at Pt Temp 62.1 H ABG pO2 at Pt Temp 111 H ABG HCO3 28.2 H ABG O2 Sat (Measured) 98.0 ABG O2 Content 15.1 ABG Base Excess 0.9 Jp Test Positive Oxygen Flow Rate Yes Sodium Potassium Chloride Carbon Dioxide Anion Gap BUN Creatinine Est GFR (CKD-EPI)AfAm Est GFR (CKD-EPI)NonAf POC Glucometer 81 103 Random Glucose Calcium Phosphorus Total Bilirubin AST ALT Alkaline Phosphatase Total Protein Albumin Random Vancomycin 02/12/19 02/12/19 02/13/19 18:07 21:24 05:37 Puncture Site ABG pH ABG pCO2 at Pt Temp ABG pO2 at Pt Temp ABG HCO3 ABG O2 Sat (Measured) ABG O2 Content ABG Base Excess Jp Test Oxygen Flow Rate Sodium Potassium Chloride Carbon Dioxide Anion Gap BUN Creatinine Est GFR (CKD-EPI)AfAm Est GFR (CKD-EPI)NonAf POC Glucometer 140 204 137 Random Glucose Calcium Phosphorus Total Bilirubin AST ALT Alkaline Phosphatase Total Protein Albumin Random Vancomycin 02/13/19 02/13/19 06:50 06:50 Puncture Site ABG pH ABG pCO2 at Pt Temp ABG pO2 at Pt Temp ABG HCO3 ABG O2 Sat (Measured) ABG O2 Content ABG Base Excess Jp Test Oxygen Flow Rate Sodium 134 L Potassium 3.7 Chloride 97 L Carbon Dioxide 28 Anion Gap 9 BUN 37.4 H Creatinine 4.1 H Est GFR (CKD-EPI)AfAm 11.11 Est GFR (CKD-EPI)NonAf 9.59 POC Glucometer Random Glucose 128 H Calcium 8.6 Phosphorus 3.9 Total Bilirubin 0.9 AST 16 ALT 10 L Alkaline Phosphatase 161 H Total Protein 7.5 Albumin 2.9 L Random Vancomycin 18.6 Active Medications Generic Name Dose Route Start Last Admin Trade Name Freq PRN Reason Stop Dose Admin Albuterol/Ipratropium 1 amp 02/12/19 12:00 02/13/19 07:15 Duoneb - NEB 1 amp RQID ERNESTINE Administration Aspirin 81 mg 02/12/19 10:00 02/12/19 10:03 Ecotrin - PO 81 mg DAILY ERNESTINE Administration Chlorhexidine Gluconate 1 applic 02/11/19 22:00 02/12/19 21:27 Hibiclens For Decolonization - TP 1 applic HS ERNESTINE Administration Cinacalcet 30 mg 02/11/19 14:52 02/12/19 10:03 Sensipar - PO 30 mg DAILY ERNESTINE Administration Heparin Sodium (Porcine) 5,000 unit 02/12/19 14:00 02/13/19 05:54 Heparin - SQ 5,000 unit TID ERNESTINE Administration Norepinephrine Bitartrate 8, 500 mls @ 18.75 mls/hr 02/11/19 13:45 02/12/19 14:36 000 mcg/ Dextrose IV Not Given TITR ERNESTINE Protocol 5 MCG/MIN Sodium Chloride 250 mls @ 3,000 mls/hr 02/11/19 15:38 Normal Saline - IV 02/12/19 15:38 PRN PRN Hypotension during Dialysis Aztreonam 0.5 gm/ Dextrose 50 mls @ 100 mls/hr 02/11/19 21:00 02/12/19 21:26 IVPB 100 mls/hr Q12H ERNESTINE Administration Protocol Sodium Chloride 250 mls @ 3,000 mls/hr 02/12/19 12:42 Normal Saline - IV 02/13/19 12:43 PRN PRN Hypotension during Dialysis Insulin Aspart 1 vial 02/11/19 16:30 02/13/19 06:08 Novolog Vial Sliding Scale - SQ Not Given ACHS [facility] Protocol Methylprednisolone Sodium Succinate 40 mg 02/12/19 12:45 02/13/19 03:26 Solu-Medrol - IVPUSH 40 mg Q6H-IV ERNESTINE Administration Mupirocin 1 applic 02/11/19 22:00 02/12/19 21:26 Bactroban Ointment (For Decolonization) - NS 02/16/19 21:59 1 applic BID ERNESTINE Administration ASSESSMENT/PLAN: 83 y/o female with PMH of HTN, CHF, CAD s/p stents, ESRD (t//), DM presents to the ED after being sent from dialysis due to hypotension #Neuro neurologically intact -patient was apparently confused yesterday and head CT was done which showed no acute pahtology #Cardiovascular patient no longer hypotensive and is no longer on pressors -will hold antihypertensive medications currently -history of afib- not on AC given history of previous GI bleed -maintain MAPS >65 -monitor hemodynamics -Dr. Hedrick consulted -echo was done which showed mild global hypokinesis of the LV with a mildly reduced EF; severe pulmonary hypertensions (RV pressure greater than 60) #Endo patient has history of hypothyroidism however her TSH is low and she is hypothermic -will repeat TFT's in 2 days -for now will hold synthroid -Dr. Chapa consulted #ID sepsis workup initiated on arrival -blood cx negative -U/A- >100 WBCs however negative nitrites/leuk esterase -CXR showing R and L effusions with posisble infiltrates -currently on vanc/aztreonam ( day 2); will redose vanco after HD (level 18.6 this AM) -Dr. Hanks on board #Pulmonary patient was in hypoxic hypercapnic respiratory failure on arrival and placed on BIPAP; repeat ABG improved -CXR showed b/l effusions with infiltrate v. atelectasis ( right greater left); CTA was done which did not show evidence of PE -d/c steroids - monitor respiratory status #Renal pateint receiving HD today; volume status much improved than initial presentation -dr. cedillo consulted -monitor electrolytes and volume status F/E/N not on fluids monitor electrolytes sodium controlled diet DVT PPX: SCDS code status: DNR/DNI dispo: transfer to tele Problem List - Problems (1) Congestive heart failure (CHF) Code(s): I50.9 - HEART FAILURE, UNSPECIFIED Qualifiers: Heart failure type: unspecified Heart failure chronicity: acute on chronic Qualified Code(s): I50.9 - Heart failure, unspecified (2) Sepsis Code(s): A41.9 - SEPSIS, UNSPECIFIED ORGANISM Qualifiers: Sepsis type: sepsis due to unspecified organism Qualified Code(s): A41.9 - Sepsis, unspecified organism (3) Atrial fibrillation Code(s): I48.91 - UNSPECIFIED ATRIAL FIBRILLATION Qualifiers: Atrial fibrillation type: persistent Qualified Code(s): I48.1 - Persistent atrial fibrillation (4) CAD (coronary artery disease) Code(s): I25.10 - ATHSCL HEART DISEASE OF [place] CORONARY ARTERY W/O ANG PCTRS (5) ESRD (end stage renal disease) on dialysis Code(s): N18.6 - END STAGE RENAL DISEASE; Z99.2 - DEPENDENCE ON RENAL DIALYSIS Visit type - Emergency Visit Emergency Visit: Yes ED Registration Date: 02/11/19 Care time: The patient presented to the Emergency Department on the above date and was hospitalized for further evaluation of their emergent condition. - New Patient This patient is new to me today: No - Critical Care Critical Care patient: Yes Total Critical Care Time (in minutes): 35 Critical Care Statement: The care of this patient involved high complexity decision making to prevent further life threatening deterioration of the patient 's condition and/or to evaluate & treat vital organ system(s) failure or risk of failure.
[2019-02-13] MEDS ORDERED: AZTREONAM 1 GM VIAL (RESTRICTED TO ID) ONE ×2 (08:45→22:04)
[2019-02-13] MEDS ORDERED: DEXTROSE 5%-WATER - 50 ML IVPB ONE ×2 (08:45→22:04)
[2019-02-13] MEDS: AZTREONAM 0.5 GM in DEXTROSE 5%-WATER - 50 ML IVPB SCH ×2 (08:46→22:06)
[2019-02-13] MEDS ORDERED: PT OWN MED DRAWER 7, Y5N ONE (08:56)
[2019-02-13] MEDS: ASPIRIN COATED 81 MG TABLET.EC PO SCH (09:31)
[2019-02-13] MEDS: MUPIROCIN 2% TOPICAL OINTMENT FOR DECOLONIZATION NS SCH (09:31)
[2019-02-13] MEDS: CINACALCET HCL 30 MG TAB (FP) PO SCH (09:31)
--- NOTE | 2019-02-13 10:55 | PN ---
Progress Note (short form) - Note Progress Note: better today no pain Vital Signs - 24 hr 02/12/19 02/12/19 02/12/19 17:15 17:20 17:22 Temperature 97.1 F L Pulse Rate 86 82 82 Respiratory 20 20 24 H Rate Blood Pressure 127/55 L 126/56 L 127/55 L O2 Sat by Pulse Oximetry (%) 02/12/19 02/12/19 02/12/19 18:00 18:30 19:00 Temperature Pulse Rate 78 78 83 Respiratory 20 20 20 Rate Blood Pressure 114/59 L 118/57 L 110/50 L O2 Sat by Pulse Oximetry (%) 02/12/19 02/12/19 02/12/19 19:25 19:40 20:00 Temperature Pulse Rate 87 89 89 Respiratory 16 16 16 Rate Blood Pressure 116/55 L 129/66 129/66 O2 Sat by Pulse Oximetry (%) 02/12/19 02/12/19 02/12/19 20:06 21:00 22:00 Temperature 97.2 F L Pulse Rate 86 Respiratory 16 16 Rate Blood Pressure 121/59 L O2 Sat by Pulse 100 98 Oximetry (%) 02/13/19 02/13/19 02/13/19 00:00 00:02 02:00 Temperature 98 F Pulse Rate 83 98 H Respiratory 16 16 Rate Blood Pressure 115/47 L 123/60 O2 Sat by Pulse 98 Oximetry (%) 02/13/19 02/13/19 02/13/19 04:55 06:00 06:45 Temperature 98.2 F Pulse Rate 98 H 98 H 90 Respiratory 16 16 18 Rate Blood Pressure 135/89 127/68 124/64 O2 Sat by Pulse Oximetry (%) 02/13/19 02/13/19 02/13/19 06:50 07:00 07:30 Temperature Pulse Rate 87 87 94 H Respiratory 18 16 20 Rate Blood Pressure 129/66 121/62 111/57 L O2 Sat by Pulse Oximetry (%) 02/13/19 02/13/19 02/13/19 08:00 08:30 08:52 Temperature Pulse Rate 91 H 97 H 90 Respiratory 18 18 18 Rate Blood Pressure 119/74 119/74 133/62 O2 Sat by Pulse Oximetry (%) 02/13/19 02/13/19 02/13/19 09:00 09:30 10:00 Temperature 97.3 F L Pulse Rate 90 100 H 97 H Respiratory 18 18 18 Rate Blood Pressure 133/62 128/70 130/73 O2 Sat by Pulse 98 Oximetry (%) 02/13/19 02/13/19 02/13/19 10:30 10:50 11:10 Temperature 97.5 F L Pulse Rate 97 H 91 H 97 H Respiratory 19 17 19 Rate Blood Pressure 126/71 124/49 L 119/68 O2 Sat by Pulse Oximetry (%) 02/13/19 12:00 Temperature Pulse Rate 92 H Respiratory 15 Rate Blood Pressure 135/73 O2 Sat by Pulse Oximetry (%) Current Medications Generic Name Dose Route Start Last Admin Trade Name Freq PRN Reason Stop Dose Admin Albuterol/Ipratropium 1 amp 02/12/19 12:00 02/13/19 11:08 Duoneb - NEB 1 amp RQID [facility] Administration Aspirin 81 mg 02/12/19 10:00 02/13/19 09:31 Ecotrin - PO 81 mg DAILY [facility] Administration Chlorhexidine Gluconate 1 applic 02/11/19 22:00 02/12/19 21:27 Hibiclens For Decolonization - TP 1 applic HS [facility] Administration Cinacalcet 30 mg 02/11/19 14:52 02/13/19 09:31 Sensipar - PO 30 mg DAILY [facility] Administration Heparin Sodium (Porcine) 5,000 unit 02/12/19 14:00 02/13/19 05:54 Heparin - SQ 5,000 unit TID [facility] Administration Sodium Chloride 250 mls @ 3,000 mls/hr 02/11/19 15:38 Normal Saline - IV 02/12/19 15:38 PRN PRN Hypotension during Dialysis Aztreonam 0.5 gm/ Dextrose 50 mls @ 100 mls/hr 02/11/19 21:00 02/13/19 08:46 IVPB 100 mls/hr Q12H [facility] Administration Protocol Sodium Chloride 250 mls @ 3,000 mls/hr 02/12/19 12:42 Normal Saline - IV 02/13/19 12:43 PRN PRN Hypotension during Dialysis Insulin Aspart 1 vial 02/11/19 16:30 02/13/19 12:22 Novolog Vial Sliding Scale - SQ Not Given ACHS [facility] Protocol Mupirocin 1 applic 02/11/19 22:00 02/13/19 09:31 Bactroban Ointment (For Decolonization) - NS 02/16/19 21:59 1 applic BID [facility] Administration Laboratory Results - last 24 hr 02/12/19 02/12/19 02/12/19 06:42 10:58 18:07 WBC RBC Hgb Hct MCV MCH MCHC RDW Plt Count MPV Sodium Potassium Chloride Carbon Dioxide Anion Gap BUN Creatinine Est GFR (CKD-EPI)AfAm Est GFR (CKD-EPI)NonAf POC Glucometer 81 103 140 Random Glucose Calcium Phosphorus Total Bilirubin AST ALT Alkaline Phosphatase Total Protein Albumin Random Vancomycin 02/12/19 02/13/19 02/13/19 21:24 05:37 06:50 WBC RBC Hgb Hct MCV MCH MCHC RDW Plt Count MPV Sodium Potassium Chloride Carbon Dioxide Anion Gap BUN Creatinine Est GFR (CKD-EPI)AfAm Est GFR (CKD-EPI)NonAf POC Glucometer 204 137 Random Glucose Calcium Phosphorus Total Bilirubin AST ALT Alkaline Phosphatase Total Protein Albumin Random Vancomycin 18.6 02/13/19 02/13/19 02/13/19 06:50 06:50 11:44 WBC 3.0 L RBC 3.34 L Hgb 11.5 Hct 35.6 MCV 106.4 H MCH 34.2 H MCHC 32.2 RDW 17.4 H Plt Count 72 L MPV 9.3 Sodium 134 L Potassium 3.7 Chloride 97 L Carbon Dioxide 28 Anion Gap 9 BUN 37.4 H Creatinine 4.1 H Est GFR (CKD-EPI)AfAm 11.11 Est GFR (CKD-EPI)NonAf 9.59 POC Glucometer 103 Random Glucose 128 H Calcium 8.6 Phosphorus 3.9 Total Bilirubin 0.9 AST 16 ALT 10 L Alkaline Phosphatase 161 H Total Protein 7.5 Albumin 2.9 L Random Vancomycin No pallor S1 S2 Irregular Lungs crackles+ abd- soft, NT edema+ PLAN off pressors iv antibiotics continue meds CT head and chest-- noted HD per renal spoke with ICU team Problem List - Problems (1) Severe protein-calorie malnutrition Code(s): E43 - UNSPECIFIED SEVERE PROTEIN-CALORIE MALNUTRITION (2) Congestive heart failure (CHF) Code(s): I50.9 - HEART FAILURE, UNSPECIFIED Qualifiers: Heart failure type: unspecified Heart failure chronicity: acute on chronic Qualified Code(s): I50.9 - Heart failure, unspecified (3) Sepsis Code(s): A41.9 - SEPSIS, UNSPECIFIED ORGANISM Qualifiers: Sepsis type: sepsis due to unspecified organism Qualified Code(s): A41.9 - Sepsis, unspecified organism (4) Atrial fibrillation Code(s): I48.91 - UNSPECIFIED ATRIAL FIBRILLATION Qualifiers: Atrial fibrillation type: persistent Qualified Code(s): I48.1 - Persistent atrial fibrillation (5) CAD (coronary artery disease) Code(s): I25.10 - ATHSCL HEART DISEASE OF [place] CORONARY ARTERY W/O ANG PCTRS
--- NOTE | 2019-02-13 11:15 | PN ---
Teaching Attending Note Name of Resident: Jazmyne Eric ATTENDING PHYSICIAN STATEMENT I saw and evaluated the patient. I reviewed the resident's note and discussed the case with the resident. I agree with the resident's findings and plan as documented. SUBJECTIVE: Patient seen and examined in the ICU. Breathing overall better. Reports some dry cough. Currently on HD. Planned for 3.5 L removal. OBJECTIVE: Intake & Output 02/10/19 02/11/19 02/12/19 02/13/19 23:59 23:59 23:59 23:59 Intake Total 622.0 301 100 Output Total 0 0 Balance 622.0 301 100 Weight 159 lb 9.835 oz 153 lb 3.54 oz 152 lb 6.4 oz Last Vital Signs Temp Pulse Resp BP Pulse Ox 97.3 F L 97 H 19 126/71 98 02/13/19 10:00 02/13/19 10:30 02/13/19 10:30 02/13/19 10:30 02/13/19 09:00 Active Medications Albuterol/Ipratropium (Duoneb -) 1 amp NEB RQID [facility] Last Admin: 02/13/19 11:08 Dose: 1 amp Aspirin (Ecotrin -) 81 mg PO DAILY [facility] Last Admin: 02/13/19 09:31 Dose: 81 mg Chlorhexidine Gluconate (Hibiclens For Decolonization -) 1 applic TP HS [facility] Last Admin: 02/12/19 21:27 Dose: 1 applic Cinacalcet (Sensipar -) 30 mg PO DAILY [facility] Last Admin: 02/13/19 09:31 Dose: 30 mg Heparin Sodium (Porcine) (Heparin -) 5,000 unit SQ TID [facility] Last Admin: 02/13/19 05:54 Dose: 5,000 unit Norepinephrine Bitartrate 8, (000 mcg/ Dextrose) 500 mls @ 18.75 mls/hr IV TITR [facility]; Protocol Last Admin: 02/12/19 14:36 Dose: Not Given Sodium Chloride (Normal Saline -) 250 mls @ 3,000 mls/hr IV PRN PRN PRN Reason: Hypotension during Dialysis Stop: 02/12/19 15:38 Aztreonam 0.5 gm/ Dextrose 50 mls @ 100 mls/hr IVPB Q12H [facility]; Protocol Last Admin: 02/13/19 08:46 Dose: 100 mls/hr Sodium Chloride (Normal Saline -) 250 mls @ 3,000 mls/hr IV PRN PRN PRN Reason: Hypotension during Dialysis Stop: 02/13/19 12:43 Insulin Aspart (Novolog Vial Sliding Scale -) 1 vial SQ ACHS [facility]; Protocol Last Admin: 02/13/19 06:08 Dose: Not Given Methylprednisolone Sodium Succinate (Solu-Medrol -) 40 mg IVPUSH Q6H-IV [facility] Last Admin: 02/13/19 08:52 Dose: 40 mg Mupirocin (Bactroban Ointment (For Decolonization) -) 1 applic NS BID [facility] Stop: 02/16/19 21:59 Last Admin: 02/13/19 09:31 Dose: 1 applic Gen: Awake and alert, NAD Heart: RRR Lung: bibasilar rhonchi: Right > Left, no wheezes Abd: soft, nontender Ext: no edema Laboratory Results - last 24 hr 02/12/19 02/12/19 02/12/19 06:42 10:58 11:13 WBC RBC Hgb Hct MCV MCH MCHC RDW Plt Count MPV Puncture Site Right brachial ABG pH 7.28 L ABG pCO2 at Pt Temp 62.1 H ABG pO2 at Pt Temp 111 H ABG HCO3 28.2 H ABG O2 Sat (Measured) 98.0 ABG O2 Content 15.1 ABG Base Excess 0.9 Jp Test Positive Oxygen Flow Rate Yes Sodium Potassium Chloride Carbon Dioxide Anion Gap BUN Creatinine Est GFR (CKD-EPI)AfAm Est GFR (CKD-EPI)NonAf POC Glucometer 81 103 Random Glucose Calcium Phosphorus Total Bilirubin AST ALT Alkaline Phosphatase Total Protein Albumin Random Vancomycin 02/12/19 02/12/19 02/13/19 18:07 21:24 05:37 WBC RBC Hgb Hct MCV MCH MCHC RDW Plt Count MPV Puncture Site ABG pH ABG pCO2 at Pt Temp ABG pO2 at Pt Temp ABG HCO3 ABG O2 Sat (Measured) ABG O2 Content ABG Base Excess Jp Test Oxygen Flow Rate Sodium Potassium Chloride Carbon Dioxide Anion Gap BUN Creatinine Est GFR (CKD-EPI)AfAm Est GFR (CKD-EPI)NonAf POC Glucometer 140 204 137 Random Glucose Calcium Phosphorus Total Bilirubin AST ALT Alkaline Phosphatase Total Protein Albumin Random Vancomycin 02/13/19 02/13/1919 06:50 06:50 06:50 WBC 3.0 L RBC 3.34 L Hgb 11.5 Hct 35.6 MCV 106.4 H MCH 34.2 H MCHC 32.2 RDW 17.4 H Plt Count 72 L MPV 9.3 Puncture Site ABG pH ABG pCO2 at Pt Temp ABG pO2 at Pt Temp ABG HCO3 ABG O2 Sat (Measured) ABG O2 Content ABG Base Excess Jp Test Oxygen Flow Rate Sodium 134 L Potassium 3.7 Chloride 97 L Carbon Dioxide 28 Anion Gap 9 BUN 37.4 H Creatinine 4.1 H Est GFR (CKD-EPI)AfAm 11.11 Est GFR (CKD-EPI)NonAf 9.59 POC Glucometer Random Glucose 128 H Calcium 8.6 Phosphorus 3.9 Total Bilirubin 0.9 AST 16 ALT 10 L Alkaline Phosphatase 161 H Total Protein 7.5 Albumin 2.9 L Random Vancomycin 18.6 ASSESSMENT AND PLAN: Acute on Chronic Hypercapneic Respiratory Failure Pneumonia Septic Shock r/o Acute COPD Exacerbation ESRD on HD CAD Aortic Stenosis Atrial Fibrillation Thrombocytopenia HTN Altered Mental Status PE ruled out - continue antibiotics - f/u final cultures - Can D/C Medrol - inhaled bronchodilators standing and PRN - HD per renal - PO as tolerated - DVT prophylaxis - Cardiac Telemetry monitoring Dr Zhao
--- NOTE | 2019-02-13 12:36 | PN ---
Progress Note (short form) - Note Progress Note: Renal follow up for ESRD with volume overload Pt seen and examined in the ICU s/p dialysis this am, tolerated 3.5L UF BP was stable, pt had cramping toward the end of the treatment feels better now no overt shortness of breath no abd pain, N/V/D Vital Signs Temperature 97.5 F L 02/13/19 11:10 Pulse Rate 92 H 02/13/19 12:00 Respiratory Rate 15 02/13/19 12:00 Blood Pressure 135/73 02/13/19 12:00 O2 Sat by Pulse Oximetry (%) 98 02/13/19 09:00 Intake & Output 02/10/19 02/11/19 02/12/19 02/13/19 23:59 23:59 23:59 23:59 Intake Total 622.0 301 100 Output Total 0 0 Balance 622.0 301 100 Weight 72.4 kg 69.5 kg 69.127 kg NAD on NC O2 irregular, no M/R + rales on lung exam + edema in LE left arm AVF + bruit CBC, BMP 02/13/19 06:50 02/13/19 06:50 Current Medications Albuterol/Ipratropium (Duoneb -) 1 amp NEB RQID [facility] Last Admin: 02/13/19 11:08 Dose: 1 amp Aspirin (Ecotrin -) 81 mg PO DAILY [facility] Last Admin: 02/13/19 09:31 Dose: 81 mg Chlorhexidine Gluconate (Hibiclens For Decolonization -) 1 applic TP HS [facility] Last Admin: 02/12/19 21:27 Dose: 1 applic Cinacalcet (Sensipar -) 30 mg PO DAILY [facility] Last Admin: 02/13/19 09:31 Dose: 30 mg Heparin Sodium (Porcine) (Heparin -) 5,000 unit SQ TID [facility] Last Admin: 02/13/19 05:54 Dose: 5,000 unit Sodium Chloride (Normal Saline -) 250 mls @ 3,000 mls/hr IV PRN PRN PRN Reason: Hypotension during Dialysis Stop: 02/12/19 15:38 Aztreonam 0.5 gm/ Dextrose 50 mls @ 100 mls/hr IVPB Q12H [facility]; Protocol Last Admin: 02/13/19 08:46 Dose: 100 mls/hr Sodium Chloride (Normal Saline -) 250 mls @ 3,000 mls/hr IV PRN PRN PRN Reason: Hypotension during Dialysis Stop: 02/13/19 12:43 Insulin Aspart (Novolog Vial Sliding Scale -) 1 vial SQ ACHS [facility]; Protocol Last Admin: 02/13/19 12:22 Dose: Not Given Mupirocin (Bactroban Ointment (For Decolonization) -) 1 applic NS BID [facility] Stop: 02/16/19 21:59 Last Admin: 02/13/19 09:31 Dose: 1 applic 83 year old woman with hx of ESRD on HD ([facility]), CHF with LV dysfunction, Afib (not on A/C), Hypertension, , CAD s/p PCI who presented from outpatient dialysis with hypotension. #ESRD on HD #Hypotensoin due to cardiogenic shock vs. sepsis #CHF with LV dysfunction #CAD #Hypercarbic respiratory acidosis #Thrombocytopenia #Renal Osteodystrophy tolerated 4 hour HD with 3.5L UF clinically improved as bp is now stable can consider additional UF tomorrow CTA showed no PE, but large right effusion. Possible thoracentesis if effusion remains unchanged. O2 via NC will not use Heparin with dialysis Cardiology follow up Kenny Yeboah DO
--- NOTE | 2019-02-13 13:07 | PN ---
Progress Note, Physician History of Present Illness: AWAKE, ALERT SEATED IN BED BREATHING NON LABORED + COUGH AFEBRILE LEUKOPENIC BC (-) CT LARGE R EFFUSION - Current Medication List Current Medications: Active Medications Albuterol/Ipratropium (Duoneb -) 1 amp NEB RQID [facility] Last Admin: 02/13/19 11:08 Dose: 1 amp Aspirin (Ecotrin -) 81 mg PO DAILY [facility] Last Admin: 02/13/19 09:31 Dose: 81 mg Chlorhexidine Gluconate (Hibiclens For Decolonization -) 1 applic TP HS [facility] Last Admin: 02/12/19 21:27 Dose: 1 applic Cinacalcet (Sensipar -) 30 mg PO DAILY [facility] Last Admin: 02/13/19 09:31 Dose: 30 mg Heparin Sodium (Porcine) (Heparin -) 5,000 unit SQ TID [facility] Last Admin: 02/13/19 05:54 Dose: 5,000 unit Sodium Chloride (Normal Saline -) 250 mls @ 3,000 mls/hr IV PRN PRN PRN Reason: Hypotension during Dialysis Stop: 02/12/19 15:38 Aztreonam 0.5 gm/ Dextrose 50 mls @ 100 mls/hr IVPB Q12H [facility]; Protocol Last Admin: 02/13/19 08:46 Dose: 100 mls/hr Sodium Chloride (Normal Saline -) 250 mls @ 3,000 mls/hr IV PRN PRN PRN Reason: Hypotension during Dialysis Stop: 02/13/19 12:43 Insulin Aspart (Novolog Vial Sliding Scale -) 1 vial SQ ACHS [facility]; Protocol Last Admin: 02/13/19 12:22 Dose: Not Given Mupirocin (Bactroban Ointment (For Decolonization) -) 1 applic NS BID [facility] Stop: 02/16/19 21:59 Last Admin: 02/13/19 09:31 Dose: 1 applic - Objective Vital Signs: Vital Signs Temperature 97.5 F L 02/13/19 11:10 Pulse Rate 92 H 02/13/19 12:00 Respiratory Rate 15 02/13/19 12:00 Blood Pressure 135/73 02/13/19 12:00 O2 Sat by Pulse Oximetry (%) 98 02/13/19 09:00 Constitutional: Yes: No Distress Cardiovascular: Yes: Regular Rate and Rhythm, S1, S2 Respiratory: Yes: Other (FEW CREPITATIONS L BASE DECREASED BS R BASE) Gastrointestinal: Yes: Normal Bowel Sounds, Soft Edema: Yes Labs: CBC, BMP 02/13/19 06:50 02/13/19 06:50 INR, PTT INR 1.15 (0.83-1.09) H 02/12/19 05:30 Assessment/Plan HYPOTENSION/ HYPOTHERMIA IMPROVED PLEURAL EFFUSION ESRD PCN ALLERGY AWAIT C/S VANCOMYCIN THERAPUTIC CONTINUE AZTREONAM
--- NOTE | 2019-02-13 13:30 | PN ---
Progress Note, Physician Chief Complaint: Pt A&Ox3;no chest pain or dyspnea.+ dry cough History of Present Illness: The patient is an 83 year old white woman, from [facility], with a significant past medical history of systolic and diastolic CHF ( mildly reduced LV function on recent ECHO, with severely reduced RVEF and moderately dilated RV), atrial fibrillation (unable to take warfarin due to bleed; on only ASA--hx coronary stent at [facility] years ago), DM, NYHA class 4, Hyperparathyroidism, ESRD (on dialysis //SUN) HTN, NonRheumatic Aortic (Valve) Stenosis (mild- moderately stenosed on recent ECHO), who presents to the emergency department, from dialysis for evaluation of low blood pressure. Patient was in dialysis this morning when the staff noticed her BP was in her 70-80s/50's (normally in the 120's/80's) and was brought to the ED for further evaluation. Patient states she did not get her dialysis due to her low BP, however, her last dialysis was Sunday. The patient states she has been endorsing chronic constipation, productive cough with white sputum (was suppose to start antibiotics today, but did not), decreased PO intake and decreased urination, secondary to her productive cough. Pt says she was on digoxin in 2007, but "it caused me to fall and break my right ankle"; since then, she has had a plate in the ankle, and has chronic swelling there. Two years later, after a delgado was placed for femur Fx, she had to have total hip replacement when the delgado broke; she blames warfarin for those later falls, and says she has had no further falls since stopping the anticoagulant. Denies numbness/tingling in extremities, chest pain, shortness of breath, headache, and dizziness. Denies fevers, chills, nausea, and vomiting. Allergies: erythromycin base, penicillins, verapamil, aquacel dressing, aspirin Social History: No reported alcohol, cigarette, or drug use. Surgical History: Cardiac, Total Hip Replacement PCP: Dr. Brittni Bolaños Metal Model Maker: Dr. Celeste Shah Vascular Surgeon: Dr. Watson - Current Medication List Current Medications: Active Medications Albuterol/Ipratropium (Duoneb -) 1 amp NEB RQID [facility] Last Admin: 02/13/19 11:08 Dose: 1 amp Aspirin (Ecotrin -) 81 mg PO DAILY [facility] Last Admin: 02/13/19 09:31 Dose: 81 mg Chlorhexidine Gluconate (Hibiclens For Decolonization -) 1 applic TP HS [facility] Last Admin: 02/12/19 21:27 Dose: 1 applic Cinacalcet (Sensipar -) 30 mg PO DAILY [facility] Last Admin: 02/13/19 09:31 Dose: 30 mg Heparin Sodium (Porcine) (Heparin -) 5,000 unit SQ TID [facility] Last Admin: 02/13/19 05:54 Dose: 5,000 unit Sodium Chloride (Normal Saline -) 250 mls @ 3,000 mls/hr IV PRN PRN PRN Reason: Hypotension during Dialysis Stop: 02/12/19 15:38 Aztreonam 0.5 gm/ Dextrose 50 mls @ 100 mls/hr IVPB Q12H [facility]; Protocol Last Admin: 02/13/19 08:46 Dose: 100 mls/hr Sodium Chloride (Normal Saline -) 250 mls @ 3,000 mls/hr IV PRN PRN PRN Reason: Hypotension during Dialysis Stop: 02/13/19 12:43 Insulin Aspart (Novolog Vial Sliding Scale -) 1 vial SQ ACHS [facility]; Protocol Last Admin: 02/13/19 12:22 Dose: Not Given Mupirocin (Bactroban Ointment (For Decolonization) -) 1 applic NS BID [facility] Stop: 02/16/19 21:59 Last Admin: 02/13/19 09:31 Dose: 1 applic - Objective Vital Signs: Vital Signs Temperature 97.5 F L 02/13/19 11:10 Pulse Rate 92 H 02/13/19 12:00 Respiratory Rate 15 02/13/19 12:00 Blood Pressure 135/73 02/13/19 12:00 O2 Sat by Pulse Oximetry (%) 98 02/13/19 09:00 Constitutional: Yes: Calm Eyes: Yes: WNL HENT: Yes: WNL Neck: Yes: WNL Cardiovascular: Yes: Pulse Irregular, S1 (varies in intensity), S2 Respiratory: Yes: Regular, Cough (whitish phelgm; less frequent than on admission, but still forceful, several times an hour), Diminished (absent right base) Gastrointestinal: Yes: Soft ...Rectal Exam: Yes: Deferred Genitourinary: No: Anuria Breast(s): Yes: WNL Musculoskeletal: Yes: Muscle Weakness Extremities: Yes: Cool Edema: Yes Edema: RLE: 1+ (chronic, since ankle fracture/plate 2007) Peripheral Pulses WNL: Yes Integumentary: Yes: Venous Stasis Changes Neurological: Yes: WNL ...Motor Strength: WNL Psychiatric: Yes: WNL Labs: CBC, BMP 02/13/19 06:50 02/13/19 06:50 INR, PTT INR 1.15 (0.83-1.09) H 02/12/19 05:30 Abnormal Lab Results 02/14/19 02/14/19 05:20 05:20 RBC 3.39 L MCV 105.7 H MCH 34.0 H RDW 18.3 H Plt Count 82 L Sodium 135 L Anion Gap 4 L BUN 28.7 H Creatinine 3.2 H - ....Imaging Chest X-ray: Image Reviewed EKG: Image Reviewed (AF) Problem List - Problems (1) Right ventricular dysfunction Code(s): I51.9 - HEART DISEASE, UNSPECIFIED (2) Sepsis Code(s): A41.9 - SEPSIS, UNSPECIFIED ORGANISM Qualifiers: Sepsis type: sepsis due to unspecified organism Qualified Code(s): A41.9 - Sepsis, unspecified organism (3) Severe protein-calorie malnutrition Code(s): E43 - UNSPECIFIED SEVERE PROTEIN-CALORIE MALNUTRITION (4) AV fistula occlusion Code(s): T82.898A - [facility] COMPLICATION OF VASCULAR PROSTH DEV/GRFT, INIT Qualifiers: Encounter type: initial encounter Qualified Code(s): T82.898A - Other specified complication of vascular prosthetic devices, implants and grafts, initial encounter (5) Aortic stenosis Assessment/Plan: mild to moderate on recent ECHO, with mildly reduced LVEF and severe pulmonary HTN. Code(s): I35.0 - NONRHEUMATIC AORTIC (VALVE) STENOSIS (6) Atrial fibrillation Assessment/Plan: If AV conduciont denice is required for HR control, would recommend a beta denice, e.g. metoprolol ER (pt prefers once-daily dosing). mildly reduced LVEF on ECHO; no hx asthma. Addendum: pt says she has been on labetolol 300 mg bid for years, including in the detention. Instead of labetolol, will start metoprolol tartrate initially, then change to metoprolol ER before discharge. Code(s): I48.91 - UNSPECIFIED ATRIAL FIBRILLATION Qualifiers: Atrial fibrillation type: persistent Qualified Code(s): I48.1 - Persistent atrial fibrillation (7) CAD (coronary artery disease) Code(s): I25.10 - ATHSCL HEART DISEASE OF [place] CORONARY ARTERY W/O ANG PCTRS (8) Diabetes Code(s): E11.9 - TYPE 2 DIABETES MELLITUS WITHOUT COMPLICATIONS (9) ESRD (end stage renal disease) on dialysis Code(s): N18.6 - END STAGE RENAL DISEASE; Z99.2 - DEPENDENCE ON RENAL DIALYSIS (10) S/P hip replacement Code(s): Z96.649 - PRESENCE OF UNSPECIFIED ARTIFICIAL HIP JOINT (11) Systolic and diastolic CHF w/reduced LV function, NYHA class 4 Assessment/Plan: CT chest: large Rt, small left pleural effusions. ECHO: mildly reduced LVEF; large RV, with severely reduced RVEF (no PE by CT). F/u BUN/Cr, electrolytes, daily weight, Is and OS. For hemodialysis; fluid removal. Code(s): I50.40 - UNSP COMBINED SYSTOLIC AND DIASTOLIC (CONGESTIVE) HRT FAIL (12) Venous (peripheral) insufficiency Code(s): I87.2 - VENOUS INSUFFICIENCY (CHRONIC) (PERIPHERAL) (13) Hypotension Assessment/Plan: Pt for hemodialysis; f/u BP serially, may have to limit fluid removal. Hypotension likely related to ESRD/hemodialysis, sepsis. Code(s): I95.9 - HYPOTENSION, UNSPECIFIED (14) H/O heart artery stent Assessment/Plan: Pt had coornary stent in 2014. On ASA (clopidgrel was stopped in the first year of stent when developed right arm bleed). Code(s): Z95.5 - PRESENCE OF CORONARY ANGIOPLASTY IMPLANT AND GRAFT (15) Hyperlipidemia Assessment/Plan: f/u lipid profile; keep LDL cholesterol < 70mg/dl. Code(s): E78.5 - HYPERLIPIDEMIA, UNSPECIFIED Assessment/Plan CCU time spent : 35 minutes.
[2019-02-13 15:05] VITALS: BMI 21.9
[2019-02-13] MEDS ORDERED: SODIUM CHLORIDE 250 ML IV PRN ×2 (17:21)
[2019-02-14] MEDS: HEPARIN NA (PORCINE) 5,000 UNITS/ML 1ML VIAL SQ SCH ×3 (05:39→21:15)
[2019-02-14 06:26] LABS: HEMATOCRIT 35.8 % (32.4-45.2); HEMOGLOBIN 11.5 GM/dL (10.7-15.3); MCHC 32.2 g/dl (32.0-36.0); MEAN CELL VOLUME 105.7 fl (80-96); MEAN PLT VOLUME 9.1 fl (7.5-11.1); PLATELET COUNT 82 K/MM3 (134-434); RBC 3.39 M/mm3 (3.60-5.2); RDW 18.3 % (11.6-15.6); WHITE BLOOD COUNT 6.2 K/mm3 (4.0-10.0)
[2019-02-14 06:52] LABS: BLOOD UREA NITROGEN 28.7 mg/dL (7-18); CALCIUM 8.6 mg/dL (8.5-10.1); CREATININE 3.2 mg/dL (0.55-1.3); MAGNESIUM 2.2 mg/dL (1.8-2.4); PHOSPHOROUS 2.6 mg/dL (2.5-4.9); POTASSIUM 3.7 mmol/L (3.5-5.1)
[2019-02-14] MEDS: ALBUTEROL SO4 2.5/IPRATROPIUM 0.5 INH SOL 3 ML VIAL.NEB. NEB SCH ×4 (07:45→20:53)
[2019-02-14] MEDS: INSULIN SLIDING SCALE (NOVOLOG) 1 VIAL SQ SCH ×4 (08:12→21:15)
[2019-02-14] MEDS ORDERED: AZTREONAM 1 GM VIAL (RESTRICTED TO ID) ONE (09:16)
[2019-02-14] MEDS ORDERED: PT OWN MED DRAWER 7, Y5N ONE (09:17)
[2019-02-14] MEDS ORDERED: DEXTROSE 5%-WATER - 50 ML IVPB ONE (09:17)
[2019-02-14] MEDS: AZTREONAM 0.5 GM in DEXTROSE 5%-WATER - 50 ML IVPB SCH (09:39)
[2019-02-14] MEDS: ASPIRIN COATED 81 MG TABLET.EC PO SCH (09:39)
[2019-02-14] MEDS: CINACALCET HCL 30 MG TAB (FP) PO SCH (09:40)
--- NOTE | 2019-02-14 11:28 | PN ---
Progress Note, Physician History of Present Illness: AWAKE, ALERT SEATED IN BED BREATHING NON LABORED + COUGH NOTED AFEBRILE WBC IMPROVED BC (-) CT LARGE R EFFUSION - Current Medication List Current Medications: Active Medications Albuterol/Ipratropium (Duoneb -) 1 amp NEB RQID [facility] Last Admin: 02/13/19 20:50 Dose: 1 amp Aspirin (Ecotrin -) 81 mg PO DAILY [facility] Last Admin: 02/14/19 09:39 Dose: 81 mg Cinacalcet (Sensipar -) 30 mg PO DAILY [facility] Last Admin: 02/14/19 09:40 Dose: 30 mg Heparin Sodium (Porcine) (Heparin -) 5,000 unit SQ TID [facility] Last Admin: 02/14/19 05:39 Dose: Not Given Sodium Chloride (Normal Saline -) 250 mls @ 3,000 mls/hr IV PRN PRN PRN Reason: Hypotension during Dialysis Sodium Chloride (Normal Saline -) 250 mls @ 3,000 mls/hr IV PRN PRN PRN Reason: Hypotension during Dialysis Aztreonam 0.5 gm/ Dextrose 50 mls @ 100 mls/hr IVPB Q12H [facility]; Protocol Last Admin: 02/14/19 09:39 Dose: 100 mls/hr Insulin Aspart (Novolog Vial Sliding Scale -) 1 vial SQ ACHS [facility]; Protocol Last Admin: 02/14/19 08:12 Dose: Not Given - Objective Vital Signs: Vital Signs Temperature 97.4 F L 02/14/19 04:00 Pulse Rate 92 H 02/14/19 10:00 Respiratory Rate 10 02/14/19 10:00 Blood Pressure 134/75 02/14/19 10:00 O2 Sat by Pulse Oximetry (%) 98 02/14/19 09:00 Constitutional: Yes: No Distress Cardiovascular: Yes: Regular Rate and Rhythm, S1, S2 Respiratory: Yes: Other (DECREASED BS R BASE) Gastrointestinal: Yes: Normal Bowel Sounds, Soft. No: Tenderness Edema: Yes Edema: LLE: 1+, RLE: 1+ Labs: CBC, BMP 02/14/19 05:20 02/14/19 05:20 INR, PTT INR 1.15 (0.83-1.09) H 02/12/19 05:30 Assessment/Plan HYPOTENSION/ HYPOTHERMIA IMPROVED PLEURAL EFFUSION ESRD PCN ALLERGY CULTURES NEGATIVE D/C ANTIBIOTICS, OBSERVE OFF
--- NOTE | 2019-02-14 12:06 | PN ---
Progress Note (short form) - Note Progress Note: Renal follow up for ESRD with volume overload Pt seen and examined in Tele awake and alert denies any overt sob requesting her glasses as she has difficulty seeing w/o them denies any chest pain, fever, chills, N/V s/p HD yesterday Vital Signs Temperature 97.4 F L 02/14/19 04:00 Pulse Rate 92 H 02/14/19 10:00 Respiratory Rate 10 02/14/19 10:00 Blood Pressure 134/75 02/14/19 10:00 O2 Sat by Pulse Oximetry (%) 98 02/14/19 09:00 Intake & Output 02/11/19 02/12/19 02/13/19 02/14/19 23:59 23:59 23:59 23:59 Intake Total 622.0 301 270 50 Output Total 0 0 Balance 622.0 301 270 50 Weight 72.4 kg 69.5 kg 69.4 kg NAD on NC O2 irregular, no M/R dec BS edema in LE is improved left arm AVF + bruit CBC, BMP 02/14/19 05:20 02/14/19 05:20 Current Medications Albuterol/Ipratropium (Duoneb -) 1 amp NEB RQID [facility] Last Admin: 02/13/19 20:50 Dose: 1 amp Aspirin (Ecotrin -) 81 mg PO DAILY [facility] Last Admin: 02/14/19 09:39 Dose: 81 mg Cinacalcet (Sensipar -) 30 mg PO DAILY [facility] Last Admin: 02/14/19 09:40 Dose: 30 mg Heparin Sodium (Porcine) (Heparin -) 5,000 unit SQ TID [facility] Last Admin: 02/14/19 05:39 Dose: Not Given Sodium Chloride (Normal Saline -) 250 mls @ 3,000 mls/hr IV PRN PRN PRN Reason: Hypotension during Dialysis Sodium Chloride (Normal Saline -) 250 mls @ 3,000 mls/hr IV PRN PRN PRN Reason: Hypotension during Dialysis Insulin Aspart (Novolog Vial Sliding Scale -) 1 vial SQ ACHS [facility]; Protocol Last Admin: 02/14/19 11:31 Dose: Not Given 83 year old woman with hx of ESRD on HD ([facility]), CHF with LV dysfunction, Afib (not on A/C), Hypertension, , CAD s/p PCI who presented from outpatient dialysis with hypotension. #ESRD on HD #Hypotensoin due to cardiogenic shock vs. sepsis #CHF with LV dysfunction #CAD #Hypercarbic respiratory acidosis #Thrombocytopenia #Renal Osteodystrophy Clinically improved, BP stable, O2 sats stable on NC O2 will plan for additional dialysis with aggressive UF unlikely that we will be able to completely mobilize unilateral effusion with HD alone CTA showed no PE, but large right effusion. Possible thoracentesis if effusion remains unchanged. O2 via NC will not use Heparin with dialysis given she has low platelet counts Cardiology follow up Kenny Yeboah DO
--- NOTE | 2019-02-14 12:06 | PN ---
Progress Note (short form) - Note Progress Note: Feeling overall better after HD. No CP or SOB. Some dry cough. OBJECTIVE: Intake & Output 02/11/19 02/12/19 02/13/19 02/14/19 23:59 23:59 23:59 23:59 Intake Total 622.0 301 270 50 Output Total 0 0 Balance 622.0 301 270 50 Weight 159 lb 9.835 oz 153 lb 3.54 oz 153 lb Last Vital Signs Temp Pulse Resp BP Pulse Ox 97.4 F L 92 H 10 134/75 98 02/14/19 04:00 02/14/19 10:00 02/14/19 10:00 02/14/19 10:00 02/14/19 09:00 Active Medications Albuterol/Ipratropium (Duoneb -) 1 amp NEB RQID [facility] Last Admin: 02/13/19 20:50 Dose: 1 amp Aspirin (Ecotrin -) 81 mg PO DAILY [facility] Last Admin: 02/14/19 09:39 Dose: 81 mg Cinacalcet (Sensipar -) 30 mg PO DAILY [facility] Last Admin: 02/14/19 09:40 Dose: 30 mg Heparin Sodium (Porcine) (Heparin -) 5,000 unit SQ TID [facility] Last Admin: 02/14/19 05:39 Dose: Not Given Sodium Chloride (Normal Saline -) 250 mls @ 3,000 mls/hr IV PRN PRN PRN Reason: Hypotension during Dialysis Sodium Chloride (Normal Saline -) 250 mls @ 3,000 mls/hr IV PRN PRN PRN Reason: Hypotension during Dialysis Insulin Aspart (Novolog Vial Sliding Scale -) 1 vial SQ ACHS [facility]; Protocol Last Admin: 02/14/19 11:31 Dose: Not Given Gen: Awake and alert, NAD Heart: RRR Lung: bibasilar rhonchi: Right > Left, no wheezes Abd: soft, nontender Ext: no edema Laboratory Results - last 24 hr 02/13/19 02/13/19 02/14/19 17:02 22:02 05:20 WBC 6.2 RBC 3.39 L Hgb 11.5 Hct 35.8 MCV 105.7 H MCH 34.0 H MCHC 32.2 RDW 18.3 H Plt Count 82 L MPV 9.1 Sodium Potassium Chloride Carbon Dioxide Anion Gap BUN Creatinine Est GFR (CKD-EPI)AfAm Est GFR (CKD-EPI)NonAf POC Glucometer 133 117 Random Glucose Calcium Phosphorus Magnesium 02/14/19 02/14/19 02/14/19 05:20 05:36 11:29 WBC RBC Hgb Hct MCV MCH MCHC RDW Plt Count MPV Sodium 135 L Potassium 3.7 Chloride 99 Carbon Dioxide 32 Anion Gap 4 L BUN 28.7 H Creatinine 3.2 H Est GFR (CKD-EPI)AfAm 14.99 Est GFR (CKD-EPI)NonAf 12.94 POC Glucometer 75 76 Random Glucose 74 Calcium 8.6 Phosphorus 2.6 Magnesium 2.2 ASSESSMENT AND PLAN: Acute on Chronic Hypercapneic Respiratory Failure Pneumonia Septic Shock Low suspicion of Acute COPD Exacerbation ESRD on HD CAD Aortic Stenosis Atrial Fibrillation Thrombocytopenia HTN Altered Mental Status PE ruled out - continue antibiotics - Monitor off systemic steroids - Inhaled bronchodilators standing and PRN - HD per renal - PO as tolerated - DVT prophylaxis Dr Zhao
[2019-02-14] MEDS ORDERED: SODIUM CHLORIDE 250 ML IV PRN (12:11)
--- NOTE | 2019-02-14 13:18 | PN ---
Progress Note (short form) - Note Progress Note: Seen in ICU Feels better Vital Signs Period Temp Pulse Resp BP Sys/Willson Pulse Ox Last 24 Hr 97.3 F-98.1 F 89-107 10-23 108-138/53-83 98-98 PE: awake alert Neck: Supple, No JVD HEENT: EOMI Lungs: CTA CVS: S1S2 Abd: Benign Ext: No edema Neuro: No focal deficit CMP Sodium 135 mmol/L (136-145) L 02/14/19 05:20 Potassium 3.7 mmol/L (3.5-5.1) 02/14/19 05:20 Chloride 99 mmol/L (98-107) 02/14/19 05:20 Carbon Dioxide 32 mmol/L (21-32) 02/14/19 05:20 Anion Gap 4 MMOL/L (8-16) L 02/14/19 05:20 BUN 28.7 mg/dL (7-18) H 02/14/19 05:20 Creatinine 3.2 mg/dL (0.55-1.3) H 02/14/19 05:20 Est GFR (CKD-EPI)AfAm 14.99 02/14/19 05:20 Est GFR (CKD-EPI)NonAf 12.94 02/14/19 05:20 POC Glucometer 76 UNITS (80-120) 02/14/19 11:29 Random Glucose 74 mg/dL (74-106) 02/14/19 05:20 Lactic Acid 0.9 mmol/L (0.4-2.0) 02/11/19 09:50 Calcium 8.6 mg/dL (8.5-10.1) 02/14/19 05:20 Phosphorus 2.6 mg/dL (2.5-4.9) 02/14/19 05:20 Magnesium 2.2 mg/dL (1.8-2.4) 02/14/19 05:20 Total Bilirubin 0.9 mg/dL (0.2-1) 02/13/19 06:50 AST 16 U/L (15-37) 02/13/19 06:50 ALT 10 U/L (13-61) L 02/13/19 06:50 Alkaline Phosphatase 161 U/L (45-117) H 02/13/19 06:50 Creatine Kinase 30 U/L (26-192) 02/11/19 09:12 Troponin I 0.03 ng/ml (0.00-0.05) 02/11/19 09:12 Total Protein 7.5 g/dl (6.4-8.2) 02/13/19 06:50 Albumin 2.9 g/dl (3.4-5.0) L 02/13/19 06:50 TSH 0.09 uIU/ml (0.358-3.74) L 02/11/19 15:30 Free T4 1.53 ng/dl (0.76-1.46) H 02/11/19 15:30 Current Medications Generic Name Dose Route Start Last Admin Trade Name Freq PRN Reason Stop Dose Admin Albumin Human 12.5 gm 02/15/19 08:00 Albumin Human 25% IVPB 02/15/19 09:31 Q30M [facility] Albuterol/Ipratropium 1 amp 02/13/19 20:00 02/14/19 11:45 Duoneb - NEB 1 amp RQID [facility] Administration Aspirin 81 mg 02/14/19 10:00 02/14/19 09:39 Ecotrin - PO 81 mg DAILY [facility] Administration Cinacalcet 30 mg 02/14/19 10:00 02/14/19 09:40 Sensipar - PO 30 mg DAILY [facility] Administration Heparin Sodium (Porcine) 5,000 unit 02/13/19 22:00 02/14/19 05:39 Heparin - SQ Not Given TID [facility] Sodium Chloride 250 mls @ 3,000 mls/hr 02/13/19 17:21 Normal Saline - IV PRN PRN Hypotension during Dialysis Sodium Chloride 250 mls @ 3,000 mls/hr 02/13/19 17:21 Normal Saline - IV PRN PRN Hypotension during Dialysis Sodium Chloride 250 mls @ 3,000 mls/hr 02/14/19 12:11 Normal Saline - IV 02/15/19 12:11 PRN PRN Hypotension during Dialysis Insulin Aspart 1 vial 02/13/19 22:00 02/14/19 11:31 Novolog Vial Sliding Scale - SQ Not Given ACHS [facility] Protocol AP; Septic shock Hypothyroidism: On LT4 175mcg daily as per pt. Was on the dose on review of [facility] med list CHF TSH 0.09 FT4 1.53 Hold LT4 for now Repeat TSH with FT4 now Restart LT4 150mcg Qd Was on LT4 200 in 2017 Will f/u
--- NOTE | 2019-02-14 14:04 | PN ---
Progress Note (short form) - Note Progress Note: pt seen/ examined chart is reviewed feels better cough + off abx today. Vital Signs Temp 97.4 F L 02/14/19 04:00 Pulse 92 H 02/14/19 10:00 Resp 10 02/14/19 10:00 BP 134/75 02/14/19 10:00 Pulse Ox 98 02/14/19 09:40 Intake & Output 02/13/19 02/14/19 02/14/19 23:59 11:59 23:59 Intake Total 170 50 Balance 170 50 Weight 153 lb Intake: IVPB 50 50 Oral 120 Other: Voiding Method Incontinent Incontinent # Unmeasured Voids Void 1 1 Bowel Movement No Height 5 ft 10 in Body Mass Index (BMI) 21.9 Active Medications Albumin Human (Albumin Human 25%) 12.5 gm IVPB Q30M [facility] Stop: 02/15/19 09:31 Albuterol/Ipratropium (Duoneb -) 1 amp NEB RQID [facility] Last Admin: 02/14/19 11:45 Dose: 1 amp Aspirin (Ecotrin -) 81 mg PO DAILY [facility] Last Admin: 02/14/19 09:39 Dose: 81 mg Cinacalcet (Sensipar -) 30 mg PO DAILY [facility] Last Admin: 02/14/19 09:40 Dose: 30 mg Heparin Sodium (Porcine) (Heparin -) 5,000 unit SQ TID [facility] Last Admin: 02/14/19 05:39 Dose: Not Given Sodium Chloride (Normal Saline -) 250 mls @ 3,000 mls/hr IV PRN PRN PRN Reason: Hypotension during Dialysis Sodium Chloride (Normal Saline -) 250 mls @ 3,000 mls/hr IV PRN PRN PRN Reason: Hypotension during Dialysis Sodium Chloride (Normal Saline -) 250 mls @ 3,000 mls/hr IV PRN PRN PRN Reason: Hypotension during Dialysis Stop: 02/15/19 12:11 Insulin Aspart (Novolog Vial Sliding Scale -) 1 vial SQ ACHS [facility]; Protocol Last Admin: 02/14/19 11:31 Dose: Not Given Levothyroxine Sodium (Synthroid -) 150 mcg PO DAILY@0700 [facility] CBC, BMP 02/14/19 05:20 02/14/19 05:20 Microbiology 02/11/19 09:15 Blood Culture - Preliminary Blood - Peripheral Venous NO GROWTH OBTAINED AFTER 72 HOURS, INCUBATION TO CONTINUE FOR 2 DAYS. 02/11/19 09:15 Blood Culture - Preliminary Blood - Peripheral Venous NO GROWTH OBTAINED AFTER 72 HOURS, INCUBATION TO CONTINUE FOR 2 DAYS. cta -- reviewed Physical Exam Awake/comfortable S1 S2 Irregular Lungs --Diminished at bases abd- soft, NT. bs + Trace Edema + PLAN Better Continue present care off pressors iv antibiotics-- d/samy today. Next dialysis tomorrow Monitor for pleural effusion. Discussed with RN also. Problem List - Problems (1) Severe protein-calorie malnutrition Code(s): E43 - UNSPECIFIED SEVERE PROTEIN-CALORIE MALNUTRITION (2) Congestive heart failure (CHF) Code(s): I50.9 - HEART FAILURE, UNSPECIFIED Qualifiers: Heart failure type: unspecified Heart failure chronicity: acute on chronic Qualified Code(s): I50.9 - Heart failure, unspecified (3) Sepsis Code(s): A41.9 - SEPSIS, UNSPECIFIED ORGANISM Qualifiers: Sepsis type: sepsis due to unspecified organism Qualified Code(s): A41.9 - Sepsis, unspecified organism (4) Atrial fibrillation Code(s): I48.91 - UNSPECIFIED ATRIAL FIBRILLATION Qualifiers: Atrial fibrillation type: persistent Qualified Code(s): I48.1 - Persistent atrial fibrillation (5) CAD (coronary artery disease) Code(s): I25.10 - ATHSCL HEART DISEASE OF [place] CORONARY ARTERY W/O ANG PCTRS
[2019-02-14] MEDS: METOPROLOL TARTRATE 25 MG TABLET (FP) PO SCH (21:19)
--- NOTE | 2019-02-15 01:30 | PN ---
Progress Note, Physician Chief Complaint: Pt A&Ox3; sitting up at bedside; no chest pain or dyspnea.cough has lessened History of Present Illness: The patient is an 83 year old white woman from [facility], with a significant past medical history of systolic and diastolic CHF ( mildly reduced LV function on recent ECHO, with severely reduced RVEF and moderately dilated RV), atrial fibrillation (unable to take warfarin due to bleed; on only ASA--hx coronary stent at [facility] years ago), DM, NYHA class 4, Hyperparathyroidism, ESRD (on dialysis //[facility]UN) HTN, NonRheumatic Aortic (Valve) Stenosis (mild- moderately stenosed on recent ECHO), who presents to the emergency department, from dialysis for evaluation of low blood pressure. Patient was in dialysis this morning when the staff noticed her BP was in her 70-80s/50's (normally in the 120's/80's) and was brought to the ED for further evaluation. Patient states she did not get her dialysis due to her low BP, however, her last dialysis was Sunday. The patient states she has been endorsing chronic constipation, productive cough with white sputum (was suppose to start antibiotics today, but did not), decreased PO intake and decreased urination, secondary to her productive cough. Pt says she was on digoxin in 2007, but "it caused me to fall and break my right ankle"; since then, she has had a plate in the ankle, and has chronic swelling there. Two years later, after a delgado was placed for femur Fx, she had to have total hip replacement when the delgado broke; she blames warfarin for those later falls, and says she has had no further falls since stopping the anticoagulant. Denies numbness/tingling in extremities, chest pain, shortness of breath, headache, and dizziness. Denies fevers, chills, nausea, and vomiting. Allergies: erythromycin base, penicillins, verapamil, aquacel dressing, aspirin Social History: No reported alcohol, cigarette, or drug use. Surgical History: Cardiac, Total Hip Replacement PCP: Dr. Brittni Bolaños Certified Indoor Environmentalist: Dr. Celeste Shah Vascular Surgeon: Dr. Watson - Current Medication List Current Medications: Active Medications Albumin Human (Albumin Human 25%) 12.5 gm IVPB Q30M [facility] Stop: 02/15/19 09:31 Albuterol/Ipratropium (Duoneb -) 1 amp NEB RQID [facility] Last Admin: 02/14/19 20:53 Dose: 1 amp Aspirin (Ecotrin -) 81 mg PO DAILY [facility] Last Admin: 02/14/19 09:39 Dose: 81 mg Cinacalcet (Sensipar -) 30 mg PO DAILY [facility] Last Admin: 02/14/19 09:40 Dose: 30 mg Heparin Sodium (Porcine) (Heparin -) 5,000 unit SQ TID [facility] Last Admin: 02/14/19 21:15 Dose: Not Given Sodium Chloride (Normal Saline -) 250 mls @ 3,000 mls/hr IV PRN PRN PRN Reason: Hypotension during Dialysis Sodium Chloride (Normal Saline -) 250 mls @ 3,000 mls/hr IV PRN PRN PRN Reason: Hypotension during Dialysis Sodium Chloride (Normal Saline -) 250 mls @ 3,000 mls/hr IV PRN PRN PRN Reason: Hypotension during Dialysis Stop: 02/15/19 12:11 Insulin Aspart (Novolog Vial Sliding Scale -) 1 vial SQ ACHS [facility]; Protocol Last Admin: 02/14/19 21:15 Dose: Not Given Levothyroxine Sodium (Synthroid -) 150 mcg PO DAILY@0700 [facility] Metoprolol Tartrate (Lopressor -) 25 mg PO BID [facility] Last Admin: 02/14/19 21:19 Dose: 25 mg - Objective Vital Signs: Vital Signs Temperature 97.9 F 02/14/19 20:18 Pulse Rate 100 H 02/14/19 20:18 Respiratory Rate 16 02/14/19 20:58 Blood Pressure 130/68 02/14/19 20:18 O2 Sat by Pulse Oximetry (%) 98 02/14/19 09:40 Constitutional: Yes: Calm Eyes: Yes: WNL HENT: Yes: WNL Neck: Yes: WNL Cardiovascular: Yes: Pulse Irregular, S1 (vareis in intensity), S2 Respiratory: Yes: Diminished. No: Wheezes Gastrointestinal: Yes: Soft ...Rectal Exam: Yes: Deferred Genitourinary: No: Anuria Breast(s): Yes: WNL Musculoskeletal: Yes: Muscle Weakness Extremities: Yes: Cool Edema: Yes Edema: RLE: 1+ Peripheral Pulses WNL: Yes Integumentary: Yes: WNL Neurological: Yes: Alert, Oriented, Weakness Psychiatric: Yes: WNL Labs: CBC, BMP 02/14/19 05:20 02/14/19 05:20 INR, PTT INR 1.15 (0.83-1.09) H 02/12/19 05:30 Abnormal Lab Results 02/14/19 02/14/19 05:20 05:20 RBC 3.39 L MCV 105.7 H MCH 34.0 H RDW 18.3 H Plt Count 82 L Sodium 135 L Anion Gap 4 L BUN 28.7 H Creatinine 3.2 H - ....Imaging Chest X-ray: Image Reviewed Cat Scan: Image Reviewed EKG: Image Reviewed Problem List - Problems (1) Right ventricular dysfunction Code(s): I51.9 - HEART DISEASE, UNSPECIFIED (2) Sepsis Code(s): A41.9 - SEPSIS, UNSPECIFIED ORGANISM Qualifiers: Sepsis type: sepsis due to unspecified organism Qualified Code(s): A41.9 - Sepsis, unspecified organism (3) Severe protein-calorie malnutrition Code(s): E43 - UNSPECIFIED SEVERE PROTEIN-CALORIE MALNUTRITION (4) AV fistula occlusion Code(s): T82.898A - [facility] COMPLICATION OF VASCULAR PROSTH DEV/GRFT, INIT Qualifiers: Encounter type: initial encounter Qualified Code(s): T82.898A - Other specified complication of vascular prosthetic devices, implants and grafts, initial encounter (5) Aortic stenosis Assessment/Plan: mild to moderate on recent ECHO, with mildly reduced LVEF and severe pulmonary HTN. Code(s): I35.0 - NONRHEUMATIC AORTIC (VALVE) STENOSIS (6) Atrial fibrillation Assessment/Plan: IStarted metoprolol for HR control. Reportedly unable to tolerate systemic anticoagulation. Code(s): I48.91 - UNSPECIFIED ATRIAL FIBRILLATION Qualifiers: Atrial fibrillation type: persistent Qualified Code(s): I48.1 - Persistent atrial fibrillation (7) CAD (coronary artery disease) Assessment/Plan: s/p coronary stent. Code(s): I25.10 - ATHSCL HEART DISEASE OF [place] CORONARY ARTERY W/O ANG PCTRS (8) Diabetes Code(s): E11.9 - TYPE 2 DIABETES MELLITUS WITHOUT COMPLICATIONS (9) ESRD (end stage renal disease) on dialysis Code(s): N18.6 - END STAGE RENAL DISEASE; Z99.2 - DEPENDENCE ON RENAL DIALYSIS (10) S/P hip replacement Code(s): Z96.649 - PRESENCE OF UNSPECIFIED ARTIFICIAL HIP JOINT (11) Systolic and diastolic CHF w/reduced LV function, NYHA class 4 Assessment/Plan: CT chest: large Rt, small left pleural effusions. ECHO: mildly reduced LVEF; large RV, with severely reduced RVEF (no PE by CT). Now on metoprolol. Consider ACEI, diuretic if BP remains stable. F/u BUN/Cr, electrolytes, daily weight, Is and OS. hemodialysis 3x/wk; fluid removal. Code(s): I50.40 - UNSP COMBINED SYSTOLIC AND DIASTOLIC (CONGESTIVE) HRT FAIL (12) Venous (peripheral) insufficiency Code(s): I87.2 - VENOUS INSUFFICIENCY (CHRONIC) (PERIPHERAL) (13) Hypotension Assessment/Plan: Pt for hemodialysis; f/u BP serially, may have to limit fluid removal. Hypotension likely related to ESRD/hemodialysis, sepsis. Code(s): I95.9 - HYPOTENSION, UNSPECIFIED (14) H/O heart artery stent Assessment/Plan: Pt had coornary stent in 2014. On ASA (clopidgrel was stopped in the first year of stent when developed right arm bleed). Code(s): Z95.5 - PRESENCE OF CORONARY ANGIOPLASTY IMPLANT AND GRAFT (15) Hyperlipidemia Assessment/Plan: f/u lipid profile; keep LDL cholesterol < 70mg/dl. Code(s): E78.5 - HYPERLIPIDEMIA, UNSPECIFIED (16) Hypothyroid Assessment/Plan: on Synthroid (free T4 mildly elevated). Code(s): E03.9 - HYPOTHYROIDISM, UNSPECIFIED
[2019-02-15] MEDS: HEPARIN NA (PORCINE) 5,000 UNITS/ML 1ML VIAL SQ SCH ×3 (05:48→21:17)
[2019-02-15] MEDS: INSULIN SLIDING SCALE (NOVOLOG) 1 VIAL SQ SCH ×4 (06:44→21:23)
[2019-02-15] MEDS ORDERED: LEVOTHYROXINE NA 150 MCG TABLET PO SCH (07:00)
[2019-02-15] MEDS ORDERED: PT OWN MED DRAWER 7, Y5N ONE ×2 (08:16→09:16)
--- NOTE | 2019-02-15 08:58 | PN ---
Progress Note (short form) - Note Progress Note: Renal follow up for ESRD with volume overload Pt seen and examined in Tele awake and alert no acute complaints feels better no sob, cp, abd pain, N/V/D for HD today Vital Signs Temperature 97.5 F L 02/15/19 00:00 Pulse Rate 82 02/15/19 04:00 Respiratory Rate 16 02/15/19 04:00 Blood Pressure 120/60 02/15/19 04:00 O2 Sat by Pulse Oximetry (%) 98 02/14/19 09:40 Intake & Output 02/12/19 02/13/19 02/14/19 02/15/19 23:59 23:59 23:59 23:59 Intake Total 301 270 340 Output Total 0 Balance 301 270 340 Weight 69.5 kg 69.4 kg NAD on NC O2 irregular, no M/R dec BS, no rales edema in LE is improved left arm AVF + bruit CBC, BMP 02/14/19 05:20 02/14/19 05:20 Current Medications Albumin Human (Albumin Human 25%) 12.5 gm IVPB Q30M [facility] Stop: 02/15/19 09:31 Albuterol/Ipratropium (Duoneb -) 1 amp NEB RQID [facility] Last Admin: 02/14/19 20:53 Dose: 1 amp Aspirin (Ecotrin -) 81 mg PO DAILY [facility] Last Admin: 02/14/19 09:39 Dose: 81 mg Cinacalcet (Sensipar -) 30 mg PO DAILY [facility] Last Admin: 02/14/19 09:40 Dose: 30 mg Heparin Sodium (Porcine) (Heparin -) 5,000 unit SQ TID [facility] Last Admin: 02/15/19 05:48 Dose: Not Given Sodium Chloride (Normal Saline -) 250 mls @ 3,000 mls/hr IV PRN PRN PRN Reason: Hypotension during Dialysis Sodium Chloride (Normal Saline -) 250 mls @ 3,000 mls/hr IV PRN PRN PRN Reason: Hypotension during Dialysis Sodium Chloride (Normal Saline -) 250 mls @ 3,000 mls/hr IV PRN PRN PRN Reason: Hypotension during Dialysis Stop: 02/15/19 12:11 Insulin Aspart (Novolog Vial Sliding Scale -) 1 vial SQ ACHS [facility]; Protocol Last Admin: 06/22/19 06:44 Dose: Not Given Levothyroxine Sodium (Synthroid -) 150 mcg PO DAILY@0700 [facility] Last Admin: 02/15/19 06:45 Dose: 150 mcg Metoprolol Tartrate (Lopressor -) 25 mg PO BID [facility] Last Admin: 02/14/19 21:19 Dose: 25 mg 83 year old woman with hx of ESRD on HD ([facility]), CHF with LV dysfunction, Afib (not on A/C), Hypertension, , CAD s/p PCI who presented from outpatient dialysis with hypotension. #ESRD on HD #Hypotensoin due to cardiogenic shock vs. sepsis #CHF with LV dysfunction #CAD #Hypercarbic respiratory acidosis #Thrombocytopenia #Renal Osteodystrophy Clinically improved, BP stable, O2 sats stable on NC O2 for HD today with UF as tolerated. unlikely that we will be able to completely mobilize unilateral effusion with HD alone CTA showed no PE, but large right effusion. O2 via NC will not use Heparin with dialysis given she has low platelet counts Cardiology follow up Kenny Yeboah DO
[2019-02-15] MEDS: ALBUTEROL SO4 2.5/IPRATROPIUM 0.5 INH SOL 3 ML VIAL.NEB. NEB SCH ×4 (09:05→19:35)
[2019-02-15] MEDS: METOPROLOL TARTRATE 25 MG TABLET (FP) PO SCH ×2 (09:08→21:23)
[2019-02-15] MEDS: ASPIRIN COATED 81 MG TABLET.EC PO SCH (09:08)
--- NOTE | 2019-02-15 09:50 | PN ---
Progress Note (short form) - Note Progress Note: better today no pain Vital Signs - 24 hr 02/14/19 02/14/19 02/14/19 10:00 12:00 16:00 Temperature 98 F 97.8 F Pulse Rate 92 H 98 H 99 H Respiratory 10 14 16 Rate Blood Pressure 134/75 142/79 137/65 O2 Sat by Pulse Oximetry (%) 02/14/19 02/14/19 02/14/19 20:18 20:58 21:17 Temperature 97.9 F Pulse Rate 100 H 102 H Respiratory 16 16 25 H Rate Blood Pressure 130/68 134/96 O2 Sat by Pulse Oximetry (%) 02/15/19 02/15/19 02/15/19 00:00 04:00 08:57 Temperature 97.5 F L Pulse Rate 81 82 98 H Respiratory 16 16 18 Rate Blood Pressure 123/60 120/60 127/68 O2 Sat by Pulse Oximetry (%) 02/15/19 09:00 Temperature Pulse Rate Respiratory Rate Blood Pressure O2 Sat by Pulse 96 Oximetry (%) Current Medications Generic Name Dose Route Start Last Admin Trade Name Freq PRN Reason Stop Dose Admin Albumin Human 12.5 gm 02/15/19 08:00 Albumin Human 25% IVPB 02/15/19 09:31 Q30M ERNESTINE Albuterol/Ipratropium 1 amp 02/13/19 20:00 02/15/19 09:05 Duoneb - NEB 1 amp RQID ERNESTINE Administration Aspirin 81 mg 02/14/19 10:00 02/15/19 09:08 Ecotrin - PO 81 mg DAILY ERNESTINE Administration Cinacalcet 30 mg 02/14/19 10:00 02/14/19 09:40 Sensipar - PO 30 mg DAILY ERNESTINE Administration Heparin Sodium (Porcine) 5,000 unit 02/13/19 22:00 02/15/19 05:48 Heparin - SQ Not Given TID ERNESTINE Sodium Chloride 250 mls @ 3,000 mls/hr 02/13/19 17:21 Normal Saline - IV PRN PRN Hypotension during Dialysis Sodium Chloride 250 mls @ 3,000 mls/hr 02/13/19 17:21 Normal Saline - IV PRN PRN Hypotension during Dialysis Sodium Chloride 250 mls @ 3,000 mls/hr 02/14/19 12:11 Normal Saline - IV 02/15/19 12:11 PRN PRN Hypotension during Dialysis Insulin Aspart 1 vial 02/13/19 22:00 02/15/19 06:44 Novolog Vial Sliding Scale - SQ Not Given ACHS [facility] Protocol Levothyroxine Sodium 150 mcg 02/15/19 07:00 02/15/19 06:45 Synthroid - PO 150 mcg DAILY@0700 ERNESTINE Administration Metoprolol Tartrate 25 mg 02/14/19 22:00 02/15/19 09:08 Lopressor - PO 25 mg BID ERNESTINE Administration Laboratory Results - last 24 hr 02/14/19 02/14/19 02/14/19 05:20 11:29 17:10 Sodium 135 L Potassium 3.7 Chloride 99 Carbon Dioxide 32 Anion Gap 4 L BUN 28.7 H Creatinine 3.2 H Est GFR (CKD-EPI)AfAm 14.99 Est GFR (CKD-EPI)NonAf 12.94 POC Glucometer 76 97 Random Glucose 74 Calcium 8.6 Phosphorus 2.6 Magnesium 2.2 Triglycerides 80 Cholesterol 140 Total LDL Cholesterol 79 HDL Cholesterol 54 TSH Free T4 02/14/19 02/15/19 02/15/19 21:12 05:50 05:57 Sodium Potassium Chloride Carbon Dioxide Anion Gap BUN Creatinine Est GFR (CKD-EPI)AfAm Est GFR (CKD-EPI)NonAf POC Glucometer 86 78 Random Glucose Calcium Phosphorus Magnesium Triglycerides Cholesterol Total LDL Cholesterol HDL Cholesterol TSH 0.45 Free T4 0.95 No pallor S1 S2 Irregular Lungs crackles+ abd- soft, NT edema+ PLAN off pressors iv antibiotics-->dc HD today continue meds CT head and chest-- noted HD per renal Problem List - Problems (1) Severe protein-calorie malnutrition Code(s): E43 - UNSPECIFIED SEVERE PROTEIN-CALORIE MALNUTRITION (2) Congestive heart failure (CHF) Code(s): I50.9 - HEART FAILURE, UNSPECIFIED Qualifiers: Heart failure type: unspecified Heart failure chronicity: acute on chronic Qualified Code(s): I50.9 - Heart failure, unspecified (3) Sepsis Code(s): A41.9 - SEPSIS, UNSPECIFIED ORGANISM Qualifiers: Sepsis type: sepsis due to unspecified organism Qualified Code(s): A41.9 - Sepsis, unspecified organism (4) Atrial fibrillation Code(s): I48.91 - UNSPECIFIED ATRIAL FIBRILLATION Qualifiers: Atrial fibrillation type: persistent Qualified Code(s): I48.1 - Persistent atrial fibrillation (5) CAD (coronary artery disease) Code(s): I25.10 - ATHSCL HEART DISEASE OF [place] CORONARY ARTERY W/O ANG PCTRS
--- NOTE | 2019-02-15 10:04 | DS ---
Physical Examination Vital Signs: Vital Signs Temperature 97.5 F L 02/15/19 00:00 Pulse Rate 98 H 02/15/19 08:57 Respiratory Rate 18 02/15/19 08:57 Blood Pressure 127/68 02/15/19 08:57 O2 Sat by Pulse Oximetry (%) 96 02/15/19 09:00 Constitutional: Yes: No Distress, Calm Cardiovascular: Yes: Regular Rate and Rhythm Respiratory: Yes: Diminished Gastrointestinal: Yes: Normal Bowel Sounds, Soft. No: Tenderness Edema: No Labs: CBC, BMP 02/14/19 05:20 02/14/19 05:20 Discharge Summary Reason For Visit: HYPOTENSION Current Active Problems Congestive heart failure (CHF) (Acute) H/O heart artery stent (Acute) Hyperlipidemia (Acute) Hypotension (Acute) Hypothyroid (Acute) Right ventricular dysfunction (Acute) Sepsis (Acute) Severe protein-calorie malnutrition (Acute) Hospital Course: admitted for hypotension, hypothermia was admitted to [facility] ICU seen by ID, Renal . Pulmonary ,cardiology , Endocrinology Was on iv antibiotics blood cultures negative Pt better Stable for dc to [place] dc antibiotics remains afebrile off antibiotics Condition: Improved - Instructions Disposition: [facility] - Home Medications Comprehensive Discharge Medication List: Ambulatory Orders Cinacalcet HCl [Sensipar] 30 mg PO ASDIR 07/22/17 Magnesium Oxide 400 mg PO DAILY 07/22/17 Aspirin Coated [Ecotrin -] 81 mg PO DAILY tablet.ec 08/01/17 Folic Acid/Vit B Complex and C [Dialyvite 800 Tablet] 0.8 mg PO DAILY 01/21/19 Insulin (Novolog 70/30) [Novolog Mix 70/30 Vial -] 8 ml SQ ASDIR 01/21/19 Insulin Sliding Scale [Novolog Vial Sliding Scale -] 6 units SQ AM 01/21/19 Levothyroxine [Synthroid -] 150 mcg PO DAILY@0700 #30 tablet 02/15/19 Metoprolol Tartrate [Lopressor -] 25 mg PO BID #60 tablet 02/15/19
--- NOTE | 2019-02-15 11:07 | PN ---
Progress Note, Physician Chief Complaint: Events noted Coverage for Dr. Hedrick/Nohemi Not in distress History of Present Illness: Patient was seen and examined. Awake and alert. Chart was reviewed Denies chest pain, SOB or palpitations Awaiting HD - Current Medication List Current Medications: Active Medications Albumin Human (Albumin Human 25%) 12.5 gm IVPB Q30M [facility] Stop: 02/15/19 09:31 Albuterol/Ipratropium (Duoneb -) 1 amp NEB RQID [facility] Last Admin: 02/15/19 09:05 Dose: 1 amp Aspirin (Ecotrin -) 81 mg PO DAILY [facility] Last Admin: 02/15/19 09:08 Dose: 81 mg Cinacalcet (Sensipar -) 30 mg PO DAILY [facility] Last Admin: 02/14/19 09:40 Dose: 30 mg Heparin Sodium (Porcine) (Heparin -) 5,000 unit SQ TID [facility] Last Admin: 02/15/19 05:48 Dose: Not Given Sodium Chloride (Normal Saline -) 250 mls @ 3,000 mls/hr IV PRN PRN PRN Reason: Hypotension during Dialysis Sodium Chloride (Normal Saline -) 250 mls @ 3,000 mls/hr IV PRN PRN PRN Reason: Hypotension during Dialysis Sodium Chloride (Normal Saline -) 250 mls @ 3,000 mls/hr IV PRN PRN PRN Reason: Hypotension during Dialysis Stop: 02/15/19 12:11 Insulin Aspart (Novolog Vial Sliding Scale -) 1 vial SQ [facility]; Protocol Last Admin: 02/15/19 06:44 Dose: Not Given Levothyroxine Sodium (Synthroid -) 150 mcg PO DAILY@0700 [facility] Last Admin: 02/15/19 06:45 Dose: 150 mcg Metoprolol Tartrate (Lopressor -) 25 mg PO BID [facility] Last Admin: 02/15/19 09:08 Dose: 25 mg - Objective Vital Signs: Vital Signs Temperature 97.5 F L 02/15/19 00:00 Pulse Rate 98 H 02/15/19 08:57 Respiratory Rate 18 02/15/19 08:57 Blood Pressure 127/68 02/15/19 08:57 O2 Sat by Pulse Oximetry (%) 96 02/15/19 09:00 Eyes: Yes: PERRL HENT: Yes: Atraumatic Neck: Yes: Supple Cardiovascular: Yes: Regular Rate and Rhythm, S1, S2 Respiratory: Yes: CTA Bilaterally Gastrointestinal: Yes: Normal Bowel Sounds, Soft. No: Tenderness Edema: No Additional Findings/Remarks: - Review of Systems Constitutional: denies: Chills, Fever Cardiovascular: denies: Chest Pain, Palpitations, Shortness of Breath Respiratory: denies: Cough, Hemoptysis, Orthopnea, PND, SOB, SOB on Exertion Gastrointestinal: denies: Abdominal Pain, Constipation, Diarrhea, Melena, Nausea , Rectal Bleeding, Vomiting Genitourinary: denies: Dysuria, Hematuria Musculoskeletal: denies: Back Pain, Joint Pain Neurological: denies: Dizziness, Syncope. denies: Confusion, Headache, Numbness , Seizure, Unsteady Gait Labs: CBC, BMP 02/14/19 05:20 02/14/19 05:20 INR, PTT INR 1.15 (0.83-1.09) H 02/12/19 05:30 Problem List - Problems (1) Congestive heart failure (CHF) Code(s): I50.9 - HEART FAILURE, UNSPECIFIED Qualifiers: Heart failure type: unspecified Heart failure chronicity: acute on chronic Qualified Code(s): I50.9 - Heart failure, unspecified (2) H/O heart artery stent Code(s): Z95.5 - PRESENCE OF CORONARY ANGIOPLASTY IMPLANT AND GRAFT (3) Hyperlipidemia Code(s): E78.5 - HYPERLIPIDEMIA, UNSPECIFIED Qualifiers: Hyperlipidemia type: pure hypercholesterolemia Qualified Code(s): E78.00 - Pure hypercholesterolemia, unspecified; E78.0 - Pure hypercholesterolemia (4) Hypothyroid Code(s): E03.9 - HYPOTHYROIDISM, UNSPECIFIED Qualifiers: Hypothyroidism type: unspecified Qualified Code(s): E03.9 - Hypothyroidism , unspecified (5) Right ventricular dysfunction Code(s): I51.9 - HEART DISEASE, UNSPECIFIED (6) Sepsis Code(s): A41.9 - SEPSIS, UNSPECIFIED ORGANISM Qualifiers: Sepsis type: sepsis due to unspecified organism Qualified Code(s): A41.9 - Sepsis, unspecified organism (7) Aortic stenosis Code(s): I35.0 - NONRHEUMATIC AORTIC (VALVE) STENOSIS Qualifiers: Cardiac valve disease etiology: nonrheumatic Qualified Code(s): I35.0 - Nonrheumatic aortic (valve) stenosis (8) Atrial fibrillation Code(s): I48.91 - UNSPECIFIED ATRIAL FIBRILLATION Qualifiers: Atrial fibrillation type: persistent Qualified Code(s): I48.1 - Persistent atrial fibrillation (9) CAD (coronary artery disease) Code(s): I25.10 - ATHSCL HEART DISEASE OF [place] CORONARY ARTERY W/O ANG PCTRS (10) Diabetes Code(s): E11.9 - TYPE 2 DIABETES MELLITUS WITHOUT COMPLICATIONS (11) ESRD (end stage renal disease) on dialysis Code(s): N18.6 - END STAGE RENAL DISEASE; Z99.2 - DEPENDENCE ON RENAL DIALYSIS (12) Hypertension Code(s): I10 - ESSENTIAL (PRIMARY) HYPERTENSION Qualifiers: Hypertension type: essential hypertension Qualified Code(s): I10 - Essential (primary) hypertension (13) Systolic and diastolic CHF w/reduced LV function, NYHA class 4 Code(s): I50.40 - UNSP COMBINED SYSTOLIC AND DIASTOLIC (CONGESTIVE) HRT FAIL Assessment/Plan 1. Acute on chronic hypercapneic respiratory failure 2. Pneumonia/sepsis - improved 3. COPD 4. ESRD on HD 5. CAD, s/p PCI/stent, angina pectoris 6. Persistent AF 7. Acute on chronic LV sytolic/diastolic failure 8. HTN 9. Hypercholesterolemia 10. Hypothyroidism 11. Aortic valve disease () PLAN: 1. Continue Metoprolol for rate control 2. Currently on ASA and not on anticoagulation as she was unable to tolerate ( according to Dr. Hedrick's note). ? stroke risk due to persistent AF and elevated [id number] score of 6 3. HD prior to discharge Further plans are to be followed Sang Donta Hayes MD
--- NOTE | 2019-02-15 11:07 | PN ---
Progress Note (short form) - Note Progress Note: Feeling overall better. No CP or SOB. No acute events overnight. OBJECTIVE: Intake & Output 02/12/19 02/13/19 02/14/19 02/15/19 23:59 23:59 23:59 23:59 Intake Total 301 270 340 Output Total 0 Balance 301 270 340 Weight 153 lb 3.54 oz 153 lb Last Vital Signs Temp Pulse Resp BP Pulse Ox 97.5 F L 98 H 18 127/68 96 02/15/19 00:00 02/15/19 08:57 02/15/19 08:57 02/15/19 08:57 02/15/19 09:00 Active Medications Albumin Human (Albumin Human 25%) 12.5 gm IVPB Q30M [facility] Stop: 02/15/19 09:31 Albuterol/Ipratropium (Duoneb -) 1 amp NEB RQID [facility] Last Admin: 02/15/19 09:05 Dose: 1 amp Aspirin (Ecotrin -) 81 mg PO DAILY [facility] Last Admin: 02/15/19 09:08 Dose: 81 mg Cinacalcet (Sensipar -) 30 mg PO DAILY [facility] Last Admin: 02/14/19 09:40 Dose: 30 mg Heparin Sodium (Porcine) (Heparin -) 5,000 unit SQ TID [facility] Last Admin: 02/15/19 05:48 Dose: Not Given Sodium Chloride (Normal Saline -) 250 mls @ 3,000 mls/hr IV PRN PRN PRN Reason: Hypotension during Dialysis Sodium Chloride (Normal Saline -) 250 mls @ 3,000 mls/hr IV PRN PRN PRN Reason: Hypotension during Dialysis Sodium Chloride (Normal Saline -) 250 mls @ 3,000 mls/hr IV PRN PRN PRN Reason: Hypotension during Dialysis Stop: 02/15/19 12:11 Insulin Aspart (Novolog Vial Sliding Scale -) 1 vial SQ ACHS [facility]; Protocol Last Admin: 02/15/19 06:44 Dose: Not Given Levothyroxine Sodium (Synthroid -) 150 mcg PO DAILY@0700 [facility] Last Admin: 02/15/19 06:45 Dose: 150 mcg Metoprolol Tartrate (Lopressor -) 25 mg PO BID [facility] Last Admin: 02/15/19 09:08 Dose: 25 mg Gen: Awake and alert, NAD Heart: RRR Lung: scattered bibasilar rhonchi Abd: soft, nontender Ext: no edema Laboratory Results - last 24 hr 02/14/19 02/14/19 02/14/19 05:20 11:29 17:10 Sodium 135 L Potassium 3.7 Chloride 99 Carbon Dioxide 32 Anion Gap 4 L BUN 28.7 H Creatinine 3.2 H Est GFR (CKD-EPI)AfAm 14.99 Est GFR (CKD-EPI)NonAf 12.94 POC Glucometer 76 97 Random Glucose 74 Calcium 8.6 Phosphorus 2.6 Magnesium 2.2 Triglycerides 80 Cholesterol 140 Total LDL Cholesterol 79 HDL Cholesterol 54 TSH Free T4 02/14/19 02/15/19 02/15/19 21:12 05:50 05:57 Sodium Potassium Chloride Carbon Dioxide Anion Gap BUN Creatinine Est GFR (CKD-EPI)AfAm Est GFR (CKD-EPI)NonAf POC Glucometer 86 78 Random Glucose Calcium Phosphorus Magnesium Triglycerides Cholesterol Total LDL Cholesterol HDL Cholesterol TSH 0.45 Free T4 0.95 ASSESSMENT AND PLAN: Acute on Chronic Hypercapneic Respiratory Failure Pneumonia Septic Shock Low suspicion of Acute COPD Exacerbation ESRD on HD CAD Aortic Stenosis Atrial Fibrillation Thrombocytopenia HTN Altered Mental Status PE ruled out OOB to chair O2 as needed ESRD on HD D/C planning Dr Zhao
[2019-02-15 13:56] LABS: HEMATOCRIT 35.5 % (32.4-45.2); HEMOGLOBIN 11.4 GM/dL (10.7-15.3); MCH 34.2 pg (25.7-33.7); MCHC 32.1 g/dl (32.0-36.0); MEAN CELL VOLUME 106.6 fl (80-96); MEAN PLT VOLUME 8.8 fl (7.5-11.1); PLATELET COUNT 83 K/MM3 (134-434); RBC 3.33 M/mm3 (3.60-5.2); RDW 17.3 % (11.6-15.6); WHITE BLOOD COUNT 4.6 K/mm3 (4.0-10.0)
[2019-02-15 14:27] LABS: ALBUMIN 2.7 g/dl (3.4-5.0); BILIRUBIN,TOTAL 0.8 mg/dL (0.2-1); BLOOD UREA NITROGEN 33.5 mg/dL (7-18); CALCIUM 7.7 mg/dL (8.5-10.1); CREATININE 3.3 mg/dL (0.55-1.3); PHOSPHOROUS 1.8 mg/dL (2.5-4.9); TOT PROT 7.2 g/dl (6.4-8.2)
[2019-02-15] MEDS: ALBUMIN HUMAN 25% 12.5 GM/50 ML VIAL IVPB SCH ×3 (15:50→18:17)
[2019-02-15] MEDS: CINACALCET HCL 30 MG TAB (FP) PO SCH (18:01)
[2019-02-15 22:55] VITALS: BP 117/65; PULSE 90; TEMP 89
== END 2019-02-15 22:00 | DRG 871 ==
LOC: JER 08:21 → JERBED 11:46 → JICU 13:15 → J2W 02-13 16:10
PROVIDERS: ADMIT Internal Medicine; ATTEND Internal Medicine
PROC: 05HM33Z Insertion of Infusion Device into Right Internal Jugular Vein, Percutaneous Approach (ICD-10-PCS; principal; 2019-02-11)
PROC: 5A1D70Z Performance of Urinary Filtration, Intermittent, Less than 6 Hours Per Day (ICD-10-PCS; 2019-02-11)
DX: A41.9 Sepsis, unspecified organism (principal); N18.6 End stage renal disease; J96.22 Acute and chronic respiratory failure with hypercapnia; R65.21 Severe sepsis with septic shock; E43 Unspecified severe protein-calorie malnutrition; J18.9 Pneumonia, unspecified organism; I13.2 Hypertensive heart and chronic kidney disease with heart failure and with stage 5 chronic kidney disease, or end stage renal disease; I50.42 Chronic combined systolic (congestive) and diastolic (congestive) heart failure; I48.1 Persistent atrial fibrillation; E87.2 Acidosis; Z99.2 Dependence on renal dialysis; E11.22 Type 2 diabetes mellitus with diabetic chronic kidney disease; I25.10 Atherosclerotic heart disease of native coronary artery without angina pectoris; Z88.0 Allergy status to penicillin; Z79.4 Long term (current) use of insulin; E03.9 Hypothyroidism, unspecified; Z98.61 Coronary angioplasty status; D69.6 Thrombocytopenia, unspecified; I35.0 Nonrheumatic aortic (valve) stenosis; I27.20 Pulmonary hypertension, unspecified; Z68.22 Body mass index [BMI] 22.0-22.9, adult
CPT/HCPCS: 36415; 36600; 70450-TC; 71045-TC-FY; 71275-TC; 80048; 80053; 80061; 81003; 82375; 82550; 82803; 82962; 83050; 83605; 83721; 83735; 84100; 84439; 84443; 84484; 85025; 85027; 85610; 85730; 87040; 87086; 93005; 93010; 93306-TC; 93970-TC; 94640; 94660; 97161-GP; 99283-25; G0480; J1644

== ENCOUNTER 2019-05-12 10:52 | Inpatient (IN) | payer OTHER, BC ==
--- NOTE | 2019-05-12 11:34 | PDOC ---
Attending Attestation - Resident Resident Name: Jj Sánchez - HPI HPI: 05/12/19 13:57 Pt presents to the ED complaining of pain in her R leg. Obvious deformity. As per patient, pain has been persistent for two days. - Physicial Exam PE: 05/12/19 13:59 Agree with resident exam. + obvious deformity of the RLE. Neurovascularly intact. - Medical Decision Making 05/12/19 14:01 Pt presents to the ED complaining of deformity and pain in the femur. + fracture with callous formation on xray. Will check labs, admit patient, consult Dr. Tinoco.
[2019-05-12 11:51] LABS: BASO % 0.7 % (0-2.0); EOS % 1.4 % (0-4.5); LYMPH % 5.3 % (8-40); MCH 34.9 pg (25.7-33.7); MCHC 32.1 g/dl (32.0-36.0); MEAN CELL VOLUME 108.6 fl (80-96); MONO % 8.7 % (3.8-10.2); NEUT % 83.9 % (42.8-82.8); PLATELET COUNT 268 K/MM3 (134-434); RBC 2.86 M/mm3 (3.60-5.2); RDW 16.1 % (11.6-15.6); WHITE BLOOD COUNT 7.1 K/mm3 (4.0-10.0)
[2019-05-12 12:10] LABS: INR 1.16 (0.83-1.09); PROTHROMBIN TIME (PATIENT) 13.7 SEC (9.7-13.0)
[2019-05-12 12:13] LABS: ACTIVATED PTT 27.4 SECONDS (25.2-36.5)
--- NOTE | 2019-05-12 12:33 | PDOC ---
History of Present Illness - General Chief Complaint: Bone Injury Stated Complaint: RIGHT KNEE PAIN Time Seen by Provider: 05/12/19 11:34 History Source: Patient Exam Limitations: No Limitations - History of Present Illness Initial Comments: 05/12/19 12:40 83 yo female pmh of ESRD on HD (TTS), CHF, Afib, CAD, HTN and R hip replacement by Dr. Tinoco presents to the ED 2 days after a fall in [facility]. Pt states she was seated on an air mattress, fell with right femur pain however was not assessed or x rayed until last night. Pt describes significant pain in the right femur with deformity, however, she is able to move her toes and has full sensation in her right distal ext. Pt denies recent illness, AC, fals in the past, CP, SOB, back pain, changes in bowel or bladder habits, abdominal pain Past History - Past Medical History Allergies/Adverse Reactions: Allergies Allergy/AdvReac Type Severity Reaction Status Date / Time erythromycin base Allergy Severe Swelling Verified 02/11/19 08:30 Penicillins Allergy Severe Swelling Verified 02/11/19 08:30 verapamil [Verapamil] Allergy Severe Swelling Verified 02/11/19 08:30 aspirin AdvReac Nausea Verified 02/11/19 08:30 peppers Allergy Uncoded 02/13/19 13:13 AQUACEL DRESSING AdvReac Severe Rash Uncoded 02/11/19 08:30 Home Medications: Ambulatory Orders Cinacalcet HCl [Sensipar] 30 mg PO ASDIR 07/22/17 Magnesium Oxide 400 mg PO DAILY 07/22/17 Aspirin Coated [Ecotrin -] 81 mg PO DAILY tablet.ec 08/01/17 Folic Acid/Vit B Complex and C [Dialyvite 800 Tablet] 0.8 mg PO DAILY 01/21/19 Insulin (Novolog 70/30) [Novolog Mix 70/30 Vial -] 8 ml SQ ASDIR 01/21/19 Insulin Sliding Scale [Novolog Vial Sliding Scale -] 6 units SQ AM 01/21/19 Levothyroxine [Synthroid -] 150 mcg PO DAILY@0700 #30 tablet 02/15/19 Metoprolol Tartrate [Lopressor -] 25 mg PO BID #60 tablet 02/15/19 Cardiac Disorders: Yes (A-FIB 2000) COPD: No CHF: Yes Diabetes: Yes Dialysis: Yes GI Disorders: Yes (ESRD) HTN: Yes Hypercholesterolemia: Yes Thyroid Disease: Yes - Surgical History Cardiac Surgery: Yes Orthopedic Surgery: Yes (Yes; right hip surgery) - Suicide/Smoking/Psychosocial Hx Smoking Status: No Smoking History: Never smoked Have you smoked in the past 12 months: No Number of Cigarettes Smoked Daily: 0 Information on smoking cessation initiated: No Hx Alcohol Use: No Drug/Substance Use Hx: No Substance Use Type: None Hx Substance Use Treatment: No Review of Systems - Review of Systems Constitutional: Yes: See HPI HEENTM: Yes: See HPI Respiratory: Yes: See HPI Cardiac (ROS): Yes: See HPI ABD/GI: Yes: See HPI : Yes: See HPI Musculoskeletal: Yes: See HPI Integumentary: Yes: See HPI Neurological: Yes: See HPI *Physical Exam - Vital Signs Last Vital Signs Temp Pulse Resp BP Pulse Ox 97.5 F L 108 H 20 131/73 100 05/12/19 11:09 05/12/19 11:09 05/12/19 11:09 05/12/19 11:05/12/19 11:09 - Physical Exam General Appearance: Yes: Nourished, Appropriately Dressed, Apparent Distress ( right femur deformity with pain) HEENT: positive: EOMI, LOIS Neck: positive: Supple. negative: Carotid bruit Respiratory/Chest: positive: Lungs Clear, Normal Breath Sounds. negative: Respiratory Distress, Rapid RR, Crackles, Rales, Rhonchi, Stridor, Wheezing Cardiovascular: positive: Regular Rhythm, S1, S2, Tachycardia. negative: Edema , JVD, Murmur Vascular Pulses: Dorsalis-Pedis (R): 4+, Doralis-Pedis (L): 4+ Gastrointestinal/Abdominal: positive: Flat, Soft. negative: Distended, Guarding , Rebound, Tenderness Musculoskeletal: negative: CVA Tenderness Extremity: positive: Normal Capillary Refill, Swelling, Other (neurovascularly intact bilateral lower ext). negative: Normal Inspection (R femoral deformity with pain) Integumentary: positive: Normal Color, Dry, Warm Neurologic: positive: sales activity manager II-XII NML intact, Fully Oriented, Alert, Normal Mood/ Affect, Normal Response. negative: Numbness, Sensory Deficit, Confused, Disoriented ED Treatment Course - LABORATORY CBC & Chemistry Diagram: 05/14/19 06:41 05/14/19 06:41 - ADDITIONAL ORDERS Additional order review: Laboratory Results 05/12/19 05/12/19 11:30 11:30 PT with INR 13.70 H INR 1.16 H PTT (Actin FS) 27.4 Blood Type Cancelled Antibody Screen Cancelled 05/12/19 11:30 RBC 2.86 L MCV 108.6 H MCHC 32.1 RDW 16.1 H MPV 9.0 Neutrophils % 83.9 H Lymphocytes % 5.3 L D Monocytes % 8.7 Eosinophils % 1.4 D Basophils % 0.7 - RADIOLOGY Radiology Studies Ordered: Category Date Time Status FEMUR-RIGHT [RAD] Stat Radiology 05/12/19 12:26 Ordered HIP & PELVIS-RIGHT [RAD] Stat Radiology 05/12/19 12:26 Ordered Medical Decision Making - Medical Decision Making 83 yo female pmh of ESRD on HD (TTS), CHF, Afib, CAD, HTN and R hip replacement by Dr. Tinoco presents to the ED 2 days after a fall in [facility]. Pt states she was seated on an air mattress, fell with right femur pain however was not assessed or x rayed until last night. Pt describes significant pain in the right femur with deformity, however, she is able to move her toes and has full sensation in her right distal ext. Pt denies recent illness, AC, fals in the past, CP, SOB, back pain, changes in bowel or bladder habits, abdominal pain vitals show elevated HR otherwise wnl Pt has obvious R femur deformity and pain after trauma 2 days ago X ray shows fracture to the femur below hip replacement pre op labs sent, pt not on AC Discussed cause with pt Orth, Dr. Tinoco, states he will assess Pt to be admitted under hospitalist service and likely require dialysis in the am DtNano Benson in the ED states he did a revision to the R hip replacement and will likely be doing the surgery tmr pt admitted *DC/Admit/Observation/Transfer Diagnosis at time of Disposition: Femur fracture, right - Discharge Dispostion Condition at time of disposition: Stable Decision to Admit order: Yes - Referrals - Patient Instructions - Post Discharge Activity
[2019-05-12] MEDS ORDERED: ACETAMINOPHEN 1000 MG/100 ML VIAL (NON FORMULARY) IVPB ONE (12:41)
[2019-05-12 12:42] LABS: ALBUMIN 1.8 g/dl (3.4-5.0); ALK PHOS 230 U/L (45-117); ANION GAP 6 MMOL/L (8-16); BILIRUBIN,TOTAL 0.4 mg/dL (0.2-1); CALCIUM 8.2 mg/dL (8.5-10.1); CHLORIDE 94 mmol/L (98-107); CO2 29 mmol/L (21-32); CREATININE 3.7 mg/dL (0.55-1.3); GLUCOSE,RANDOM 99 mg/dL (74-106); SGOT/AST 98 U/L (15-37); SGPT/ALT 13 U/L (13-61); SODIUM 128 mmol/L (136-145); TOT PROT 7.7 g/dl (6.4-8.2)
[2019-05-12 14:11] LABS: ANISOCYTOSIS 1+; MACROCYTOSIS 1+; PLATELET ESTIMATE NORMAL
[2019-05-12] MEDS ORDERED: ACETAMINOPHEN INJECTION 100 ML IVPB ONE (14:23)
--- NOTE | 2019-05-12 15:43 | HP ---
Admitting History and Physical - Admission Chief Complaint: came in for fracture History of Present Illness: 83 yo female pmh of ESRD on HD (TTS), CHF, Afib, CAD, HTN and R hip replacement by Dr. Tinoco presents to the ED 2 days after a fall in [facility]. Pt states she was seated on an air mattress, fell with right femur pain however was not assessed or x rayed until last night. Pt describes significant pain in the right femur with deformity, however, she is able to move her toes and has full sensation in her right distal ext. Pt denies recent illness, AC, fals in the past, CP, SOB, back pain, changes in bowel or bladder habits, abdominal pain - Past Medical History Cardiovascular: Yes: AFIB (paroxysmal), CAD, HTN Renal/: Yes: Renal Failure, Hemodialysis Endocrine: Yes: Diabetes Mellitus - Past Surgical History Past Surgical History: Yes: Joint Replacement (rt hip- 2009, ankle fracture , s/ p plates-- 2005) - Smoking History Smoking history: Never smoked Have you smoked in the past 12 months: No Aproximately how many cigarettes per day: 0 - Alcohol/Substance Use Hx Alcohol Use: No Home Medications - Allergies Allergies/Adverse Reactions: Allergies Allergy/AdvReac Type Severity Reaction Status Date / Time erythromycin base Allergy Severe Swelling Verified 02/11/19 08:30 Penicillins Allergy Severe Swelling Verified 02/11/19 08:30 verapamil [Verapamil] Allergy Severe Swelling Verified 02/11/19 08:30 aspirin AdvReac Nausea Verified 02/11/19 08:30 peppers Allergy Uncoded 02/13/19 13:13 AQUACEL DRESSING AdvReac Severe Rash Uncoded 02/11/19 08:30 - Home Medications Home Medications: Ambulatory Orders Cinacalcet HCl [Sensipar] 30 mg PO ASDIR 07/22/17 Magnesium Oxide 400 mg PO DAILY 07/22/17 Aspirin Coated [Ecotrin -] 81 mg PO DAILY tablet.ec 08/01/17 Folic Acid/Vit B Complex and C [Dialyvite 800 Tablet] 0.8 mg PO DAILY 01/21/19 Insulin (Novolog 70/30) [Novolog Mix 70/30 Vial -] 8 ml SQ ASDIR 01/21/19 Insulin Sliding Scale [Novolog Vial Sliding Scale -] 6 units SQ AM 01/21/19 Levothyroxine [Synthroid -] 150 mcg PO DAILY@0700 #30 tablet 02/15/19 Metoprolol Tartrate [Lopressor -] 25 mg PO BID #60 tablet 02/15/19 Family Disease History - Family Disease History Family Disease History: Other: Sister (Hypothyroidism) Review of Systems - Review of Systems Musculoskeletal: reports: Other (leg pain) Physical Examination Vital Signs: Vital Signs Temperature 97.5 F L 05/12/19 11:09 Pulse Rate 82 05/12/19 15:02 Respiratory Rate 18 05/12/19 15:02 Blood Pressure 132/82 05/12/19 15:02 O2 Sat by Pulse Oximetry (%) 99 05/12/19 15:02 Constitutional: Yes: Calm Cardiovascular: Yes: Pulse Irregular, Murmur, S1, S2 Respiratory: Yes: CTA Bilaterally Gastrointestinal: Yes: Normal Bowel Sounds, Soft Extremities: Yes: Shortened, Other (rotated maked deformity seen) Edema: Yes Labs: CBC, BMP 05/12/19 11:30 Imaging - Results X-ray: Report Reviewed (femur fracture) Problem List - Problems (1) Femur fracture, right Assessment/Plan: ct scan of extermity ortho dvtppx NPO after midnight for OR in am pain control stool softner cardiology Code(s): S72.91XA - UNSP FRACTURE OF RIGHT FEMUR, INIT FOR CLOS FX (2) Atrial fibrillation Assessment/Plan: metorprolol 25mg po bid on AC as it was stopped bc patient was bleeding Code(s): I48.91 - UNSPECIFIED ATRIAL FIBRILLATION Qualifiers: (3) Hypothyroid Assessment/Plan: synthroid 150mcg check tsh Code(s): E03.9 - HYPOTHYROIDISM, UNSPECIFIED Qualifiers: (4) ESRD (end stage renal disease) on dialysis Assessment/Plan: HD per renal TTsat dr mamadou moseley Code(s): N18.6 - END STAGE RENAL DISEASE; Z99.2 - DEPENDENCE ON RENAL DIALYSIS (5) Diabetes Assessment/Plan: sliding scale bgm Code(s): E11.9 - TYPE 2 DIABETES MELLITUS WITHOUT COMPLICATIONS
--- NOTE | 2019-05-12 15:48 | CON.ORTH ---
Consult Consult Specialty:: Orthopedic Referred by:: Dr Tinoco Reason for Consultation:: For assessment and definitive treatment. - History of Present Illness Chief Complaint: Cannot walk due to a fractured R femur apperently on Sat evening. Previous hip revision THR for a failed gamma nail. History of Present Illness: Revision hip 18 months ago with a [place] [employer] Implant and Trochanteric claw clamp Apparently remained as a domestic walker. Medical staus to be evaluated by Dr Gonzalez and team. - History Source History Provided By: Patient Limitations to Obtaining History: Poor Historian - Past Medical History Cardio/Vascular: Yes: AFIB (paroxysmal), CAD, HTN Renal/: Yes: Renal Failure, Hemodialysis Endocrine: Yes: Diabetes Mellitus - Past Surgical History Past Surgical History: Yes: Joint Replacement (rt hip- 2009, ankle fracture , s/ p plates-- 2005) - Alcohol/Substance Use Hx Alcohol Use: No - Smoking History Smoking history: Never smoked Have you smoked in the past 12 months: No Aproximately how many cigarettes per day: 0 Home Medications - Allergies Allergies/Adverse Reactions: Allergies Allergy/AdvReac Type Severity Reaction Status Date / Time erythromycin base Allergy Severe Swelling Verified 02/11/19 08:30 Penicillins Allergy Severe Swelling Verified 02/11/19 08:30 verapamil [Verapamil] Allergy Severe Swelling Verified 02/11/19 08:30 aspirin AdvReac Nausea Verified 02/11/19 08:30 peppers Allergy Uncoded 02/13/19 13:13 AQUACEL DRESSING AdvReac Severe Rash Uncoded 02/11/19 08:30 - Home Medications Home Medications: Ambulatory Orders Cinacalcet HCl [Sensipar] 30 mg PO ASDIR 07/22/17 Magnesium Oxide 400 mg PO DAILY 07/22/17 Aspirin Coated [Ecotrin -] 81 mg PO DAILY tablet.ec 08/01/17 Folic Acid/Vit B Complex and C [Dialyvite 800 Tablet] 0.8 mg PO DAILY 01/21/19 Insulin (Novolog 70/30) [Novolog Mix 70/30 Vial -] 8 ml SQ ASDIR 01/21/19 Insulin Sliding Scale [Novolog Vial Sliding Scale -] 6 units SQ AM 01/21/19 Levothyroxine [Synthroid -] 150 mcg PO DAILY@0700 #30 tablet 02/15/19 Metoprolol Tartrate [Lopressor -] 25 mg PO BID #60 tablet 02/15/19 Family Disease History - Family Disease History Family Disease History: Other: Sister (Hypothyroidism) Physical Exam for Ortho Vital Signs: Vital Signs Temperature 97.5 F L 05/12/19 11:09 Pulse Rate 82 05/12/19 15:02 Respiratory Rate 18 05/12/19 15:02 Blood Pressure 132/82 05/12/19 15:02 O2 Sat by Pulse Oximetry (%) 99 05/12/19 15:02 Labs: CBC, BMP 05/12/19 11:30 INR, PTT INR 1.16 (0.83-1.09) H 05/12/19 11:30
[2019-05-12 15:50] LABS: ALBUMIN 1.9 g/dl (3.4-5.0); BILIRUBIN,TOTAL 0.5 mg/dL (0.2-1); BLOOD UREA NITROGEN 59.7 mg/dL (7-18); CALCIUM 8.3 mg/dL (8.5-10.1); CREATININE 3.7 mg/dL (0.55-1.3); POTASSIUM 3.9 mmol/L (3.5-5.1); TOT PROT 7.3 g/dl (6.4-8.2)
[2019-05-12] MEDS: INSULIN SLIDING SCALE (NOVOLOG) 1 VIAL SQ SCH ×2 (18:56→21:19)
--- NOTE | 2019-05-12 19:34 | CON.CARD ---
Consult Consult Specialty:: Cardiology - History of Present Illness History of Present Illness: 83 yo female pmh of ESRD on HD (TTS), CHF, Afib, CAD, HTN and R hip replacement by Dr. Tinoco presents to the ED 2 days after a fall in [facility]. Pt states she was seated on an air mattress, fell with right femur pain however was not assessed or x rayed until last night. Pt describes significant pain in the right femur with deformity, however, she is able to move her toes and has full sensation in her right distal ext. Pt denies recent illness, AC, fals in the past, CP, SOB, back pain, changes in bowel or bladder habits, abdominal pain PMH Atrial fibrillation Bare metal stent of ostial LCx April 01, 2015 Dr. Elizabeth CAD - mLAD 30% , oLCx 90%, RPDA 40% March 05, 2015 Dr. Elizabeth Diabetes mellitus, type II 1996 Dialysis 2010 End stage renal disease Hypertension Hypothyroidism Mildly reduced EF 48% February 2016 Moderate mean PG 23 mmHg February 2016 Severe GI bleed 2006 - History Source History Provided By: Patient, Medical Record - Past Medical History Cardio/Vascular: Yes: AFIB (paroxysmal), CAD, HTN Renal/: Yes: Renal Failure, Hemodialysis ...: No Endocrine: Yes: Diabetes Mellitus - Past Surgical History Past Surgical History: Yes: Joint Replacement (rt hip- 2009, ankle fracture , s/ p plates-- 2005) - Alcohol/Substance Use Hx Alcohol Use: No - Smoking History Smoking history: Never smoked Have you smoked in the past 12 months: No Aproximately how many cigarettes per day: 0 Home Medications - Allergies Allergies/Adverse Reactions: Allergies Allergy/AdvReac Type Severity Reaction Status Date / Time erythromycin base Allergy Severe Swelling Verified 02/11/19 08:30 Penicillins Allergy Severe Swelling Verified 02/11/19 08:30 verapamil [Verapamil] Allergy Severe Swelling Verified 02/11/19 08:30 aspirin AdvReac Nausea Verified 02/11/19 08:30 peppers Allergy Uncoded 02/13/19 13:13 AQUACEL DRESSING AdvReac Severe Rash Uncoded 02/11/19 08:30 - Home Medications Home Medications: Ambulatory Orders Cinacalcet HCl [Sensipar] 30 mg PO ASDIR 07/22/17 Magnesium Oxide 400 mg PO DAILY 11/26/17 Aspirin Coated [Ecotrin -] 81 mg PO DAILY tablet.ec 08/01/17 Folic Acid/Vit B Complex and C [Dialyvite 800 Tablet] 0.8 mg PO DAILY 01/21/19 Insulin (Novolog 70/30) [Novolog Mix 70/30 Vial -] 8 ml SQ ASDIR 01/21/19 Insulin Sliding Scale [Novolog Vial Sliding Scale -] 6 units SQ AM 01/21/19 Levothyroxine [Synthroid -] 150 mcg PO DAILY@0700 #30 tablet 02/15/19 Metoprolol Tartrate [Lopressor -] 25 mg PO BID #60 tablet 02/15/19 Family Disease History - Family Disease History Family Disease History: Other: Sister (Hypothyroidism) Review of Systems - Review of Systems Constitutional: reports: No Symptoms Eyes: reports: No Symptoms HENT: reports: No Symptoms Neck: reports: No Symptoms Cardiovascular: reports: No Symptoms Gastrointestinal: reports: No Symptoms Genitourinary: reports: No Symptoms Breasts: reports: No Symptoms Reported Musculoskeletal: reports: No Symptoms Integumentary: reports: No Symptoms Neurological: reports: No Symptoms Endocrine: reports: No Symptoms Hematology/Lymphatic: reports: No Symptoms Psychiatric: reports: No Symptoms Vital Signs: Vital Signs Temperature 97.4 F L 05/12/19 18:20 Pulse Rate 121 H 05/12/19 18:20 Respiratory Rate 18 05/12/19 18:40 Blood Pressure 117/65 05/12/19 18:20 O2 Sat by Pulse Oximetry (%) 98 05/12/19 18:40 Constitutional: Yes: Well Nourished, No Distress, Calm Eyes: Yes: WNL, Conjunctiva Clear, EOM Intact HENT: Yes: WNL, Atraumatic, Normocephalic Neck: Yes: WNL, Supple, Trachea Midline Respiratory: Yes: WNL, Regular, CTA Bilaterally Gastrointestinal: Yes: WNL, Normal Bowel Sounds Renal/: Yes: WNL Cardiovascular: Yes: WNL, Regular Rate and Rhythm Musculoskeletal: Yes: WNL Extremities: Yes: External Rotation Integumentary: Yes: WNL Neurological: Yes: WNL, Alert, Oriented ...Motor Strength: WNL Psychiatric: Yes: WNL, Alert, Oriented - Other Data Labs, Other Data: CBC, BMP 05/12/19 11:30 05/12/19 15:10 INR, PTT INR 1.16 (0.83-1.09) H 05/12/19 11:30 Troponin, BNP 05/12/19 11:30 Troponin I < 0.02 Troponin, BNP 05/12/19 11:30 Troponin I < 0.02 Imaging - Results Chest X-ray: Pending EKG: Pending Problem List - Problems (1) Femur fracture, right Code(s): S72.91XA - UNSP FRACTURE OF RIGHT FEMUR, INIT FOR CLOS FX (2) AV fistula occlusion Code(s): T82.898A - [facility] COMPLICATION OF VASCULAR PROSTH DEV/GRFT, INIT Qualifiers: Encounter type: initial encounter Qualified Code(s): T82.898A - Other specified complication of vascular prosthetic devices, implants and grafts, initial encounter (3) Anterior epistaxis Code(s): R04.0 - EPISTAXIS (4) Aortic stenosis Code(s): I35.0 - NONRHEUMATIC AORTIC (VALVE) STENOSIS Qualifiers: Cardiac valve disease etiology: nonrheumatic Qualified Code(s): I35.0 - Nonrheumatic aortic (valve) stenosis (5) Atrial fibrillation Code(s): I48.91 - UNSPECIFIED ATRIAL FIBRILLATION Qualifiers: (6) CAD (coronary artery disease) Code(s): I25.10 - ATHSCL HEART DISEASE OF [place] CORONARY ARTERY W/O ANG PCTRS (7) Cellulitis Code(s): L03.90 - CELLULITIS, UNSPECIFIED (8) Cellulitis and abscess of right lower extremity Code(s): L03.115 - CELLULITIS OF RIGHT LOWER LIMB; L02.415 - CUTANEOUS ABSCESS OF RIGHT LOWER LIMB (9) Congestive heart failure (CHF) Code(s): I50.9 - HEART FAILURE, UNSPECIFIED Qualifiers: Heart failure type: unspecified Heart failure chronicity: acute on chronic Qualified Code(s): I50.9 - Heart failure, unspecified (10) Diabetes Code(s): E11.9 - TYPE 2 DIABETES MELLITUS WITHOUT COMPLICATIONS (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, managed as type 1 Code(s): E10.9 - TYPE 1 DIABETES MELLITUS WITHOUT COMPLICATIONS (12) Diabetic acetonemia Code(s): E10.10 - TYPE 1 DIABETES MELLITUS WITH KETOACIDOSIS WITHOUT COMA (13) Diabetic foot ulcer Code(s): E11.621 - TYPE 2 DIABETES MELLITUS WITH FOOT ULCER; L97.509 - NON- PRESSURE CHRONIC ULCER OTH PRT UNSP FOOT W UNSP SEVERITY Qualifiers: Laterality: right (14) ESRD (end stage renal disease) on dialysis Code(s): N18.6 - END STAGE RENAL DISEASE; Z99.2 - DEPENDENCE ON RENAL DIALYSIS (15) Epistaxis Code(s): R04.0 - EPISTAXIS (16) Fever Code(s): R50.9 - FEVER, UNSPECIFIED (17) H/O heart artery stent Code(s): Z95.5 - PRESENCE OF CORONARY ANGIOPLASTY IMPLANT AND GRAFT (18) Hip pain, right Code(s): M25.551 - PAIN IN RIGHT HIP (19) Hyperlipidemia Code(s): E78.5 - HYPERLIPIDEMIA, UNSPECIFIED Qualifiers: Hyperlipidemia type: pure hypercholesterolemia Qualified Code(s): E78.00 - Pure hypercholesterolemia, unspecified; E78.0 - Pure hypercholesterolemia (20) Hyperparathyroidism Code(s): E21.3 - HYPERPARATHYROIDISM, UNSPECIFIED (21) 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 (22) Hypertension Code(s): I10 - ESSENTIAL (PRIMARY) HYPERTENSION Qualifiers: Hypertension type: essential hypertension Qualified Code(s): I10 - Essential (primary) hypertension (23) Hypotension Code(s): I95.9 - HYPOTENSION, UNSPECIFIED (24) Hypothyroid Code(s): E03.9 - HYPOTHYROIDISM, UNSPECIFIED Qualifiers: (25) Lower GI bleed Code(s): K92.2 - GASTROINTESTINAL HEMORRHAGE, UNSPECIFIED (26) Penicillin allergy Code(s): Z88.0 - ALLERGY STATUS TO PENICILLIN (27) Pneumonia Code(s): J18.9 - PNEUMONIA, UNSPECIFIED ORGANISM (28) Pressure ulcer of foot Code(s): L89.899 - PRESSURE ULCER OF OTHER SITE, UNSPECIFIED STAGE (29) Renal dialysis status Code(s): Z99.2 - DEPENDENCE ON RENAL DIALYSIS (30) Right ventricular dysfunction Code(s): I51.9 - HEART DISEASE, UNSPECIFIED (31) S/P hip replacement Code(s): Z96.649 - PRESENCE OF UNSPECIFIED ARTIFICIAL HIP JOINT (32) Sepsis Code(s): A41.9 - SEPSIS, UNSPECIFIED ORGANISM Qualifiers: Sepsis type: sepsis due to unspecified organism Qualified Code(s): A41.9 - Sepsis, unspecified organism (33) Severe protein-calorie malnutrition Code(s): E43 - UNSPECIFIED SEVERE PROTEIN-CALORIE MALNUTRITION (34) Stenosis of AV fistula Code(s): T82.858A - STENOSIS OF OTHER VASCULAR PROSTH DEV/GRFT, INIT Qualifiers: Encounter type: initial encounter Qualified Code(s): T82.858A - Stenosis of other vascular prosthetic devices, implants and grafts, initial encounter (35) Systolic and diastolic CHF w/reduced LV function, NYHA class 4 Code(s): I50.40 - UNSP COMBINED SYSTOLIC AND DIASTOLIC (CONGESTIVE) HRT FAIL (36) Tachycardia Code(s): R00.0 - TACHYCARDIA, UNSPECIFIED (37) Thrombocytopenia Code(s): D69.6 - THROMBOCYTOPENIA, UNSPECIFIED (38) Venous (peripheral) insufficiency Code(s): I87.2 - VENOUS INSUFFICIENCY (CHRONIC) (PERIPHERAL) Assessment/Plan Acute distal right femur fx Atrial fibrillation Bare metal stent of ostial LCx April 01, 2015 Dr. Elizabeth CAD - mLAD 30% , oLCx 90%, RPDA 40% March 05, 2015 Dr. Elizabeth Diabetes mellitus, type II 1997 Dialysis 2010 End stage renal disease Hypertension Hypothyroidism Mildly reduced EF 48% February 2016 Moderate mean PG 23 mmHg February 2016 Severe GI bleed 2006
[2019-05-12] MEDS: METOPROLOL TARTRATE 25 MG TABLET (FP) PO SCH (21:19)
[2019-05-12] MEDS: HEPARIN NA (PORCINE) 5,000 UNITS/ML 1ML VIAL SQ SCH (21:23)
[2019-05-12] MEDS ORDERED: SODIUM CHLORIDE 250 ML IV PRN (21:42)
[2019-05-12] MEDS ORDERED: ACETAMINOPHEN 325 MG TABLET (FP) PO ONE (22:34)
[2019-05-13 07:34] LABS: HEMOGLOBIN 9.6 GM/dL (10.7-15.3); MCH 34.9 pg (25.7-33.7); MEAN CELL VOLUME 109.3 fl (80-96); MEAN PLT VOLUME 7.9 fl (7.5-11.1); PLATELET COUNT 175 K/MM3 (134-434); RBC 2.74 M/mm3 (3.60-5.2); RDW 15.6 % (11.6-15.6); WHITE BLOOD COUNT 7.1 K/mm3 (4.0-10.0)
[2019-05-13 08:01] LABS: ACTIVATED PTT 34.5 SECONDS (25.2-36.5)
[2019-05-13 08:39] LABS: ALBUMIN 1.9 g/dl (3.4-5.0); ALK PHOS 226 U/L (45-117); ANION GAP 8 MMOL/L (8-16); BILIRUBIN,TOTAL 0.5 mg/dL (0.2-1); BLOOD UREA NITROGEN 69.4 mg/dL (7-18); CALCIUM 8.8 mg/dL (8.5-10.1); CHLORIDE 93 mmol/L (98-107); CO2 30 mmol/L (21-32); CREATININE 4.3 mg/dL (0.55-1.3); GLUCOSE,RANDOM 55 mg/dL (74-106); PHOSPHOROUS 3.6 mg/dL (2.5-4.9); POTASSIUM 4.4 mmol/L (3.5-5.1); SGOT/AST 13 U/L (15-37); SGPT/ALT 7 U/L (13-61); SODIUM 131 mmol/L (136-145); TOT PROT 7.2 g/dl (6.4-8.2)
[2019-05-13] MEDS: INSULIN SLIDING SCALE (NOVOLOG) 1 VIAL SQ SCH ×4 (12:36→21:23)
[2019-05-13] MEDS: HEPARIN NA (PORCINE) 5,000 UNITS/ML 1ML VIAL SQ SCH ×3 (12:36→21:17)
[2019-05-13] MEDS ORDERED: PT OWN MED DRAWER 7, Y5N ONE (12:45)
[2019-05-13] MEDS: METOPROLOL TARTRATE 25 MG TABLET (FP) PO SCH ×2 (12:53→21:20)
[2019-05-13] MEDS: LEVOTHYROXINE NA 150 MCG TABLET PO SCH (12:54)
--- NOTE | 2019-05-13 12:59 | PN ---
Progress Note, Physician Chief Complaint: R Femur Fracture History of Present Illness: Previous notes and events reviewed awake and alert NAD sts pain is controlled with medication denies chest pain or SOB - Current Medication List Current Medications: Active Medications Albuterol Sulfate (Ventolin 0.083% Nebulizer Soln -) 1 amp NEB Q4H PRN PRN Reason: SHORT OF BREATH/WHEEZING Heparin Sodium (Porcine) (Heparin -) 5,000 unit SQ TID COUNT INCLUDES THE [facility] Last Admin: 05/12/19 21:23 Dose: Not Given Sodium Chloride (Normal Saline -) 250 mls @ 3,000 mls/hr IV PRN PRN PRN Reason: Hypotension during Dialysis Stop: 05/13/19 21:42 Insulin Aspart (Novolog Vial Sliding Scale -) 1 vial SQ ACHS COUNT INCLUDES THE [facility]; Protocol Last Admin: 05/12/19 21:19 Dose: Not Given Levothyroxine Sodium (Synthroid -) 150 mcg PO DAILY@0700 COUNT INCLUDES THE [facility] Metoprolol Tartrate (Lopressor -) 25 mg PO BID COUNT INCLUDES THE [facility] Last Admin: 05/12/19 21:19 Dose: 25 mg Morphine Sulfate (Morphine Sulfate) 2 mg IVPUSH Q6H PRN PRN Reason: PAIN LEVEL 7 - 10 - Objective Vital Signs: Vital Signs Temperature 98.6 F 05/13/19 11:54 Pulse Rate 95 H 05/13/19 11:54 Respiratory Rate 18 05/13/19 11:54 Blood Pressure 115/64 05/13/19 11:54 O2 Sat by Pulse Oximetry (%) 98 05/12/19 21:00 Constitutional: Yes: No Distress, Calm Eyes: Yes: Conjunctiva Clear HENT: Yes: Atraumatic Cardiovascular: Yes: Pulse Irregular Respiratory: Yes: Regular, CTA Bilaterally Gastrointestinal: Yes: Normal Bowel Sounds, Soft Genitourinary: Yes: Incontinence Extremities: Yes: Shortened (RLE), Other (RLE rotated internally) Edema: Yes (R trace pedal) Integumentary: Yes: Pressure Ulcer Neurological: Yes: Alert, Oriented Psychiatric: Yes: Alert, Oriented Labs: CBC, BMP 05/13/19 06:07 05/13/19 06:07 INR, PTT INR 1.19 (0.83-1.09) H 05/13/19 06:07 - ....Imaging Cat Scan: Report Reviewed Problem List - Problems (1) Femur fracture, right Assessment/Plan: -Ortho on board -CT Scan shows acute distal right femoral fracture, mildly expansile lesion is seen within the right iliiac bone with partial absence of the medial and lateral cortices ? benign vs malignant neoplastic disease -pain control -Cardiology for pre-op clearance -dvt ppx -Hip and Pelvic Xray shows distal femur segment has heavy periosteal reaction along its proximal margin and there is an acute fracture of distal femoral shaft withi arthritic changes in the knee joint Code(s): S72.91XA - UNSP FRACTURE OF RIGHT FEMUR, INIT FOR CLOS FX (2) Atrial fibrillation Assessment/Plan: -Cardiology for pre-op clearance -Metoprolol for rate control -no current AC, was on coumadin in the past but was stopped due to internal bleeding Code(s): I48.91 - UNSPECIFIED ATRIAL FIBRILLATION Qualifiers: (3) Diabetes Assessment/Plan: -BGM ACHS -ISS Code(s): E11.9 - TYPE 2 DIABETES MELLITUS WITHOUT COMPLICATIONS (4) ESRD (end stage renal disease) on dialysis Assessment/Plan: -Renal consult -BUN/Cr 69.4/4.3 -monitor renal function -Renal Diet Code(s): N18.6 - END STAGE RENAL DISEASE; Z99.2 - DEPENDENCE ON RENAL DIALYSIS (5) Hypothyroid Assessment/Plan: -Levothyroxine -TSH 5.19 Code(s): E03.9 - HYPOTHYROIDISM, UNSPECIFIED Qualifiers: (6) Hyponatremia Assessment/Plan: -Na 131 -renal consult Code(s): E87.1 - HYPO-OSMOLALITY AND HYPONATREMIA Assessment/Plan see problem list dvt ppx
[2019-05-13 14:09] LABS: INR 1.19 (0.83-1.09); PROTHROMBIN TIME (PATIENT) 14.1 SEC (9.7-13.0)
--- NOTE | 2019-05-13 14:14 | PN ---
Progress Note, Physician Chief Complaint: Pt is alert; right leg pain was relieved with Tylenol with Codeine. Her sister, Yuki, is at bedside. History of Present Illness: Ms. Joseph is an 84 yo white female with pmh of ESRD on HD (TTS), diastolic CHF , Afib, CAD, HTN and R hip replacement by Dr. Tinoco who presents to the ED 2 days after a fall in [facility]. Pt states she was seated on an air mattress, fell with right femur pain however was not assessed or x rayed until last night. Pt describes significant pain in the right femur with deformity, however , she is able to move her toes and has full sensation in her right distal ext. She denies chest pain; she does become dysneic on mild exertion. - Current Medication List Current Medications: Active Medications Albuterol Sulfate (Ventolin 0.083% Nebulizer Soln -) 1 amp NEB Q4H PRN PRN Reason: SHORT OF BREATH/WHEEZING Docusate Sodium (Colace -) 300 mg PO HS [facility] Heparin Sodium (Porcine) (Heparin -) 5,000 unit SQ TID [facility] Last Admin: 05/13/19 12:36 Dose: Not Given Sodium Chloride (Normal Saline -) 250 mls @ 3,000 mls/hr IV PRN PRN PRN Reason: Hypotension during Dialysis Stop: 05/13/19 21:42 Insulin Aspart (Novolog Vial Sliding Scale -) 1 vial SQ ACHS [facility]; Protocol Last Admin: 05/13/19 12:55 Dose: Not Given Levothyroxine Sodium (Synthroid -) 150 mcg PO DAILY@0700 [facility] Last Admin: 05/13/19 12:54 Dose: 150 mcg Metoprolol Tartrate (Lopressor -) 25 mg PO BID [facility] Last Admin: 05/13/19 12:53 Dose: 25 mg Morphine Sulfate (Morphine Sulfate) 2 mg IVPUSH Q6H PRN PRN Reason: PAIN LEVEL 7 - 10 Silver Sulfadiazine (Silvadene -) 1 applic TP DAILY [facility] Sodium Hypochlorite (Dakin's Solution 0.25% (Half-Strength) -) 1 applic TP DAILY [facility] - Objective Vital Signs: Vital Signs Temperature 98.6 F 05/13/19 11:54 Pulse Rate 95 H 05/13/19 11:54 Respiratory Rate 18 05/13/19 11:54 Blood Pressure 115/64 09/17/19 11:54 O2 Sat by Pulse Oximetry (%) 98 05/12/19 21:00 Constitutional: Yes: Anxious Eyes: Yes: WNL HENT: Yes: WNL Neck: Yes: WNL Cardiovascular: Yes: S1 (varies in intensity), S2. No: JVD Respiratory: Yes: Regular Gastrointestinal: Yes: Soft ...Rectal Exam: Yes: Deferred Genitourinary: No: Anuria Musculoskeletal: Yes: Muscle Pain, Muscle Weakness, Other Integumentary: Yes: WNL Wound/Incision: Yes: Other Neurological: Yes: Alert, Oriented, Weakness Psychiatric: Yes: WNL Labs: CBC, BMP 05/13/19 06:07 05/13/19 06:07 INR, PTT INR 1.19 (0.83-1.09) H 05/13/19 06:07 Abnormal Lab Results 05/15/19 05/15/19 12:00 12:00 RBC 2.59 L Hgb 9.0 L Hct 28.4 L MCV 109.4 H MCH 34.6 H MCHC 31.7 L Sodium 133 L Chloride 95 L Anion Gap 7 L BUN 47.3 H Creatinine 4.2 H Random Glucose 109 H Calcium 8.4 L AST 14 L ALT < 6 L Alkaline Phosphatase 208 H Albumin 1.7 L Problem List - Problems (1) Systolic CHF Assessment/Plan: On metoprolol ER for systolic CHF and AF. Consider ACEI (systolic CHF; DM), if BP allows. Code(s): I50.20 - UNSPECIFIED SYSTOLIC (CONGESTIVE) HEART FAILURE (2) Femur fracture, right Assessment/Plan: From a cardiac standpoint, there are no absolute contraindications for Ms. Yoon to undergo femur fracture repair. Code(s): S72.91XA - UNSP FRACTURE OF RIGHT FEMUR, INIT FOR CLOS FX (3) Hyponatremia Code(s): E87.1 - HYPO-OSMOLALITY AND HYPONATREMIA (4) Aortic stenosis Assessment/Plan: mild-moderate , with mildly reduced LVEF, moderate-severely reduced RVEF, and severe pulmonary HTN on 01/2019 ECHO. Code(s): I35.0 - NONRHEUMATIC AORTIC (VALVE) STENOSIS Qualifiers: Cardiac valve disease etiology: nonrheumatic Qualified Code(s): I35.0 - Nonrheumatic aortic (valve) stenosis (5) Atrial fibrillation Assessment/Plan: on metoprolol for HR control (may change to ER for easier compliance). Systemic anticoagulation postoperativelyt Code(s): I48.91 - UNSPECIFIED ATRIAL FIBRILLATION Qualifiers: (6) CAD (coronary artery disease) Code(s): I25.10 - ATHSCL HEART DISEASE OF [place] CORONARY ARTERY W/O ANG PCTRS (7) Hypertension Code(s): I10 - ESSENTIAL (PRIMARY) HYPERTENSION Qualifiers: Hypertension type: essential hypertension Qualified Code(s): I10 - Essential (primary) hypertension (8) Severe protein-calorie malnutrition Code(s): E43 - UNSPECIFIED SEVERE PROTEIN-CALORIE MALNUTRITION (9) Anemia Code(s): D64.9 - ANEMIA, UNSPECIFIED (10) ESRD (end stage renal disease) Assessment/Plan: On hemodialysis per clinical nurse specialist. Code(s): N18.6 - END STAGE RENAL DISEASE (11) Diabetes Code(s): E11.9 - TYPE 2 DIABETES MELLITUS WITHOUT COMPLICATIONS
[2019-05-13] MEDS: SILVER SULFADIAZINE 1% TOP CREAM 50 GM JAR TP SCH (15:28)
[2019-05-13] MEDS: SODIUM HYPOCHLORITE 0.25%- 473 ML BULK BOTTLE TP SCH (15:29)
--- NOTE | 2019-05-13 16:03 | CONSULT ---
Consult - text type - Consultation Consultation Note: Renal consult for ESRD on HD This is a 84 year old woman with history of ESRD on HD, CHF, CAD, hypertension who presented form [facility] s/p fall with femur fracture. She last had her dialysis as an outpatient on Sunday. s/p dialysis as intpatient this AM. Tolerated it well. Has pain in her leg but is moderated. No sob, cp, fever, chills, N/V/D. PMhx: as above Allergies: as listed in EMR Family hx: NC social Hx: No T/A/D ROS: as per HPI Home Medications Medication Instructions Recorded Cinacalcet HCl [Sensipar] 30 mg PO ASDIR 07/22/17 Magnesium Oxide 400 mg PO DAILY 07/22/17 Aspirin Coated [Ecotrin -] 81 mg PO DAILY tablet.ec 08/01/17 Folic Acid/Vit B Complex and C 0.8 mg PO DAILY 01/21/19 [Dialyvite 800 Tablet] Insulin (Novolog 70/30) [Novolog 8 ml SQ ASDIR 01/21/19 Mix 70/30 Vial -] Insulin Sliding Scale [Novolog 6 units SQ AM 01/21/19 Vial Sliding Scale -] Levothyroxine [Synthroid -] 150 mcg PO DAILY@0700 #30 tablet 02/15/19 Metoprolol Tartrate [Lopressor -] 25 mg PO BID #60 tablet 02/15/19 Vital Signs Temperature 98.4 F 05/13/19 15:00 Pulse Rate 92 H 05/13/19 15:00 Respiratory Rate 18 05/13/19 15:00 Blood Pressure 123/67 05/13/19 15:00 O2 Sat by Pulse Oximetry (%) 98 05/12/19 21:00 Intake & Output 05/10/19 05/11/19 05/12/19 05/13/19 23:59 23:59 23:59 23:59 Intake Total 390 500 Output Total 3000 Balance 390 -2500 Weight 67.727 kg NAD awake and alert neck supple, no JVD RRR, no M/R CTA no LE edema left arm AVF CBC, BMP 05/13/19 06:07 05/13/19 06:07 Current Medications Albuterol Sulfate (Ventolin 0.083% Nebulizer Soln -) 1 amp NEB Q4H PRN PRN Reason: SHORT OF BREATH/WHEEZING Docusate Sodium (Colace -) 300 mg PO HS [facility] Heparin Sodium (Porcine) (Heparin -) 5,000 unit SQ TID [facility] Last Admin: 05/13/19 15:28 Dose: Not Given Sodium Chloride (Normal Saline -) 250 mls @ 3,000 mls/hr IV PRN PRN PRN Reason: Hypotension during Dialysis Stop: 05/13/19 21:42 Insulin Aspart (Novolog Vial Sliding Scale -) 1 vial SQ ACHS [facility]; Protocol Last Admin: 05/13/19 12:55 Dose: Not Given Levothyroxine Sodium (Synthroid -) 150 mcg PO DAILY@0700 [facility] Last Admin: 05/13/19 12:54 Dose: 150 mcg Metoprolol Tartrate (Lopressor -) 25 mg PO BID [facility] Last Admin: 05/13/19 12:53 Dose: 25 mg Morphine Sulfate (Morphine Sulfate) 2 mg IVPUSH Q6H PRN PRN Reason: PAIN LEVEL 7 - 10 Silver Sulfadiazine (Silvadene -) 1 applic TP DAILY [facility] Last Admin: 05/13/19 15:28 Dose: 1 applic Sodium Hypochlorite (Dakin's Solution 0.25% (Half-Strength) -) 1 applic TP DAILY [facility] Last Admin: 05/13/19 15:29 Dose: Not Given 84 year old woman with history of ESRD on HD, CHF, CAD, hypertension who presented form [facility] s/p fall with femur fracture. 1. ESRD on HD 2. Femur fracture 3. Hx of HF, not acutely decompensated 4. CAD 5. Hypertension s/p dialysis earlier today, toleated it well no renal contraindication to planned orthopedic procedure Renal diet, 1.2L fluid restriction continue Metoprolol Pain control Thank you Kenny Yeboah DO
[2019-05-13] MEDS ORDERED: ACETAMINOPHEN 325 MG TABLET (FP) PO ONE (20:49)
[2019-05-13] MEDS: DOCUSATE SODIUM 100 MG CAPSULE (FP) PO SCH (21:19)
[2019-05-14] MEDS: ALBUTEROL SO4 0.083% IH SOL 2.5 MG/3 ML VIAL.NEB. NEB PRN ×2 (05:16→22:35)
[2019-05-14] MEDS: HEPARIN NA (PORCINE) 5,000 UNITS/ML 1ML VIAL SQ SCH ×3 (06:35→21:42)
[2019-05-14] MEDS: LEVOTHYROXINE NA 150 MCG TABLET PO SCH (07:00)
[2019-05-14] MEDS: INSULIN SLIDING SCALE (NOVOLOG) 1 VIAL SQ SCH ×4 (07:00→21:45)
[2019-05-14 08:14] LABS: BASO % 0.8 % (0-2.0); EOS % 1.3 % (0-4.5); HEMATOCRIT 29.9 % (32.4-45.2); HEMOGLOBIN 9.4 GM/dL (10.7-15.3); LYMPH % 10.5 % (8-40); MCH 34.6 pg (25.7-33.7); MCHC 31.5 g/dl (32.0-36.0); MEAN CELL VOLUME 109.9 fl (80-96); MEAN PLT VOLUME 7.9 fl (7.5-11.1); MONO % 10.7 % (3.8-10.2); NEUT % 76.7 % (42.8-82.8); PLATELET COUNT 172 K/MM3 (134-434); RBC 2.72 M/mm3 (3.60-5.2); RDW 15.6 % (11.6-15.6); WHITE BLOOD COUNT 6.3 K/mm3 (4.0-10.0)
--- NOTE | 2019-05-14 08:17 | PN ---
Progress Note, Physician Chief Complaint: AWAKE ALERT EVENTS AND NOTES REVIEWED PATIENT'S PAIN CONTROLLED - Current Medication List Current Medications: Active Medications Albuterol Sulfate (Ventolin 0.083% Nebulizer Soln -) 1 amp NEB Q4H PRN PRN Reason: SHORT OF BREATH/WHEEZING Last Admin: 05/14/19 05:16 Dose: 1 amp Docusate Sodium (Colace -) 300 mg PO HS [facility] Last Admin: 05/13/19 21:19 Dose: 300 mg Heparin Sodium (Porcine) (Heparin -) 5,000 unit SQ TID [facility] Last Admin: 05/14/19 06:35 Dose: Not Given Sodium Chloride (Normal Saline -) 250 mls @ 3,000 mls/hr IV PRN PRN PRN Reason: Hypotension during Dialysis Stop: 05/13/19 21:42 Insulin Aspart (Novolog Vial Sliding Scale -) 1 vial SQ ACHS [facility]; Protocol Last Admin: 05/14/19 07:00 Dose: Not Given Levothyroxine Sodium (Synthroid -) 150 mcg PO DAILY@0700 [facility] Last Admin: 05/14/19 07:00 Dose: 150 mcg Metoprolol Tartrate (Lopressor -) 25 mg PO BID [facility] Last Admin: 05/13/19 21:20 Dose: 25 mg Morphine Sulfate (Morphine Sulfate) 2 mg IVPUSH Q6H PRN PRN Reason: PAIN LEVEL 7 - 10 Silver Sulfadiazine (Silvadene -) 1 applic TP DAILY [facility] Last Admin: 05/13/19 15:28 Dose: 1 applic Sodium Hypochlorite (Dakin's Solution 0.25% (Half-Strength) -) 1 applic TP DAILY [facility] Last Admin: 05/13/19 15:29 Dose: Not Given - Objective Vital Signs: Vital Signs Temperature 97.8 F 05/14/19 07:00 Pulse Rate 72 05/14/19 07:00 Respiratory Rate 20 05/14/19 07:00 Blood Pressure 98/76 05/14/19 07:00 O2 Sat by Pulse Oximetry (%) 98 05/13/19 21:00 Constitutional: Yes: Mild Distress Cardiovascular: Yes: Pulse Irregular Respiratory: Yes: Regular Gastrointestinal: Yes: Soft Musculoskeletal: Yes: Muscle Pain, Muscle Weakness Extremities: Yes: Deformity (RLL) Edema: Yes Edema: RLE: 1+ Integumentary: Yes: Venous Stasis Changes Neurological: Yes: Pre-Existing Deficit ...Motor Strength: RLE Psychiatric: Yes: WNL Labs: INR, PTT INR 1.19 (0.83-1.09) H 05/13/19 06:07 Problem List - Problems (1) Anemia Code(s): D64.9 - ANEMIA, UNSPECIFIED (2) ESRD (end stage renal disease) Code(s): N18.6 - END STAGE RENAL DISEASE (3) Femur fracture, right Code(s): S72.91XA - UNSP FRACTURE OF RIGHT FEMUR, INIT FOR CLOS FX (4) Hyponatremia Code(s): E87.1 - HYPO-OSMOLALITY AND HYPONATREMIA (5) Systolic CHF Code(s): I50.20 - UNSPECIFIED SYSTOLIC (CONGESTIVE) HEART FAILURE (6) Atrial fibrillation Code(s): I48.91 - UNSPECIFIED ATRIAL FIBRILLATION Qualifiers: (7) Diabetes Code(s): E11.9 - TYPE 2 DIABETES MELLITUS WITHOUT COMPLICATIONS (8) H/O heart artery stent Code(s): Z95.5 - PRESENCE OF CORONARY ANGIOPLASTY IMPLANT AND GRAFT Assessment/Plan PAIN CONTROL/DVT PROPHYLAXIS STARTED AND PT COMFORTABLE AWAIT ORTHOPEDIC FOLLOW UP PATIENT HAS A H/O MULTIPLE CO-MORBID DISEASES ESRD-HD, AFIB, S/P CARDIAC STENT, DM, HTN WILL BE A HIGH RISK SURGERY. WILL D/W ORTHOPEDICS TO EVALUATE THE BENEFIT VS THE RISK. AT THIS POINT CONSERVATIVE MANAGEMENT. DM CHECK BGM ON HEPARIN SQ TID [facility] DIABETIC DIET NEPHROLOGY EVAL ON HD
[2019-05-14 08:43] LABS: ALBUMIN 1.9 g/dl (3.4-5.0); BILIRUBIN,TOTAL 0.6 mg/dL (0.2-1); BLOOD UREA NITROGEN 36.3 mg/dL (7-18); CALCIUM 8.9 mg/dL (8.5-10.1); CREATININE 3.1 mg/dL (0.55-1.3); POTASSIUM 3.4 mmol/L (3.5-5.1); TOT PROT 7.2 g/dl (6.4-8.2)
[2019-05-14] MEDS: METOPROLOL TARTRATE 25 MG TABLET (FP) PO SCH ×2 (11:00→21:43)
[2019-05-14] MEDS: SODIUM HYPOCHLORITE 0.25%- 473 ML BULK BOTTLE TP SCH (11:00)
[2019-05-14] MEDS: SILVER SULFADIAZINE 1% TOP CREAM 50 GM JAR TP SCH (11:00)
--- NOTE | 2019-05-14 13:41 | PN ---
Progress Note, Physician History of Present Illness: 83 yo female pmh of ESRD on HD (TTS), CHF, Afib, CAD, HTN and R hip replacement by Dr. Tinoco presents to the ED 2 days after a fall in [facility]. Pt states she was seated on an air mattress, fell with right femur pain however was not assessed or x rayed until last night. Pt describes significant pain in the right femur with deformity, however, she is able to move her toes and has full sensation in her right distal ext. Pt denies recent illness, AC, fals in the past, CP, SOB, back pain, changes in bowel or bladder habits, abdominal pain PMH Atrial fibrillation Bare metal stent of ostial LCx April 01, 2015 Dr. Elizabeth CAD - mLAD 30% , oLCx 90%, RPDA 40% March 05, 2015 Dr. Elizabeth Diabetes mellitus, type II 1997 Dialysis 2010 End stage renal disease Hypertension Hypothyroidism Mildly reduced EF 48% February 2016 Moderate mean PG 23 mmHg February 2016 Severe GI bleed 2006 - Current Medication List Current Medications: Active Medications Albuterol Sulfate (Ventolin 0.083% Nebulizer Soln -) 1 amp NEB Q4H PRN PRN Reason: SHORT OF BREATH/WHEEZING Last Admin: 05/14/19 05:16 Dose: 1 amp Docusate Sodium (Colace -) 300 mg PO HS [facility] Last Admin: 05/13/19 21:19 Dose: 300 mg Heparin Sodium (Porcine) (Heparin -) 5,000 unit SQ TID [facility] Last Admin: 05/14/19 06:35 Dose: Not Given Sodium Chloride (Normal Saline -) 250 mls @ 3,000 mls/hr IV PRN PRN PRN Reason: Hypotension during Dialysis Stop: 05/13/19 21:42 Insulin Aspart (Novolog Vial Sliding Scale -) 1 vial SQ ACHS [facility]; Protocol Last Admin: 05/14/19 11:54 Dose: Not Given Levothyroxine Sodium (Synthroid -) 150 mcg PO DAILY@0700 [facility] Last Admin: 05/14/19 07:00 Dose: 150 mcg Metoprolol Tartrate (Lopressor -) 25 mg PO BID [facility] Last Admin: 05/14/19 11:00 Dose: 25 mg Morphine Sulfate (Morphine Sulfate) 2 mg IVPUSH Q6H PRN PRN Reason: PAIN LEVEL 7 - 10 Silver Sulfadiazine (Silvadene -) 1 applic TP DAILY [facility] Last Admin: 05/14/19 11:00 Dose: 1 applic Sodium Hypochlorite (Dakin's Solution 0.25% (Half-Strength) -) 1 applic TP DAILY [facility] Last Admin: 05/14/19 11:00 Dose: 1 applic - Objective Vital Signs: Vital Signs Temperature 97.6 F 05/14/19 09:00 Pulse Rate 76 05/14/19 09:00 Respiratory Rate 18 05/14/19 09:00 Blood Pressure 105/72 05/14/19 09:00 O2 Sat by Pulse Oximetry (%) 98 05/13/19 21:00 Eyes: Yes: WNL, Conjunctiva Clear, EOM Intact HENT: Yes: WNL, Atraumatic, Normocephalic Neck: Yes: WNL, Supple, Trachea Midline Cardiovascular: Yes: Pulse Irregular, S1, S2 Respiratory: Yes: WNL, Regular, CTA Bilaterally Gastrointestinal: Yes: WNL, Normal Bowel Sounds Genitourinary: Yes: WNL Musculoskeletal: Yes: WNL Extremities: Yes: WNL Edema: No Integumentary: Yes: WNL Neurological: Yes: WNL, Alert, Oriented ...Motor Strength: WNL Psychiatric: Yes: WNL Labs: CBC, BMP 05/14/19 06:41 05/14/19 06:41 INR, PTT INR 1.19 (0.83-1.09) H 05/13/19 06:07 Problem List - Problems (1) Femur fracture, right Code(s): S72.91XA - UNSP FRACTURE OF RIGHT FEMUR, INIT FOR CLOS FX (2) AV fistula occlusion Code(s): T82.898A - [facility] COMPLICATION OF VASCULAR PROSTH DEV/GRFT, INIT Qualifiers: Encounter type: initial encounter Qualified Code(s): T82.898A - Other specified complication of vascular prosthetic devices, implants and grafts, initial encounter (3) Anterior epistaxis Code(s): R04.0 - EPISTAXIS (4) Aortic stenosis Code(s): I35.0 - NONRHEUMATIC AORTIC (VALVE) STENOSIS Qualifiers: Cardiac valve disease etiology: nonrheumatic Qualified Code(s): I35.0 - Nonrheumatic aortic (valve) stenosis (5) Atrial fibrillation Code(s): I48.91 - UNSPECIFIED ATRIAL FIBRILLATION Qualifiers: (6) CAD (coronary artery disease) Code(s): I25.10 - ATHSCL HEART DISEASE OF [place] CORONARY ARTERY W/O ANG PCTRS (7) Cellulitis Code(s): L03.90 - CELLULITIS, UNSPECIFIED (8) Cellulitis and abscess of right lower extremity Code(s): L03.115 - CELLULITIS OF RIGHT LOWER LIMB; L02.415 - CUTANEOUS ABSCESS OF RIGHT LOWER LIMB (9) Congestive heart failure (CHF) Code(s): I50.9 - HEART FAILURE, UNSPECIFIED Qualifiers: Heart failure type: unspecified Heart failure chronicity: acute on chronic Qualified Code(s): I50.9 - Heart failure, unspecified (10) Diabetes Code(s): E11.9 - TYPE 2 DIABETES MELLITUS WITHOUT COMPLICATIONS (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, managed as type 1 Code(s): E10.9 - TYPE 1 DIABETES MELLITUS WITHOUT COMPLICATIONS (12) Diabetic acetonemia Code(s): E10.10 - TYPE 1 DIABETES MELLITUS WITH KETOACIDOSIS WITHOUT COMA (13) Diabetic foot ulcer Code(s): E11.621 - TYPE 2 DIABETES MELLITUS WITH FOOT ULCER; L97.509 - NON- PRESSURE CHRONIC ULCER OTH PRT UNSP FOOT W UNSP SEVERITY Qualifiers: Laterality: right (14) ESRD (end stage renal disease) on dialysis Code(s): N18.6 - END STAGE RENAL DISEASE; Z99.2 - DEPENDENCE ON RENAL DIALYSIS (15) Epistaxis Code(s): R04.0 - EPISTAXIS (16) Fever Code(s): R50.9 - FEVER, UNSPECIFIED (17) H/O heart artery stent Code(s): Z95.5 - PRESENCE OF CORONARY ANGIOPLASTY IMPLANT AND GRAFT (18) Hip pain, right Code(s): M25.551 - PAIN IN RIGHT HIP (19) Hyperlipidemia Code(s): E78.5 - HYPERLIPIDEMIA, UNSPECIFIED Qualifiers: Hyperlipidemia type: pure hypercholesterolemia Qualified Code(s): E78.00 - Pure hypercholesterolemia, unspecified; E78.0 - Pure hypercholesterolemia (20) Hyperparathyroidism Code(s): E21.3 - HYPERPARATHYROIDISM, UNSPECIFIED (21) 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 (22) Hypertension Code(s): I10 - ESSENTIAL (PRIMARY) HYPERTENSION Qualifiers: Hypertension type: essential hypertension Qualified Code(s): I10 - Essential (primary) hypertension (23) Hypotension Code(s): I95.9 - HYPOTENSION, UNSPECIFIED (24) Hypothyroid Code(s): E03.9 - HYPOTHYROIDISM, UNSPECIFIED Qualifiers: (25) Lower GI bleed Code(s): K92.2 - GASTROINTESTINAL HEMORRHAGE, UNSPECIFIED (26) Penicillin allergy Code(s): Z88.0 - ALLERGY STATUS TO PENICILLIN (27) Pneumonia Code(s): J18.9 - PNEUMONIA, UNSPECIFIED ORGANISM (28) Pressure ulcer of foot Code(s): L89.899 - PRESSURE ULCER OF OTHER SITE, UNSPECIFIED STAGE (29) Renal dialysis status Code(s): Z99.2 - DEPENDENCE ON RENAL DIALYSIS (30) Right ventricular dysfunction Code(s): I51.9 - HEART DISEASE, UNSPECIFIED (31) S/P hip replacement Code(s): Z96.649 - PRESENCE OF UNSPECIFIED ARTIFICIAL HIP JOINT (32) Sepsis Code(s): A41.9 - SEPSIS, UNSPECIFIED ORGANISM Qualifiers: Sepsis type: sepsis due to unspecified organism Qualified Code(s): A41.9 - Sepsis, unspecified organism (33) Severe protein-calorie malnutrition Code(s): E43 - UNSPECIFIED SEVERE PROTEIN-CALORIE MALNUTRITION (34) Stenosis of AV fistula Code(s): T82.858A - STENOSIS OF OTHER VASCULAR PROSTH DEV/GRFT, INIT Qualifiers: Encounter type: initial encounter Qualified Code(s): T82.858A - Stenosis of other vascular prosthetic devices, implants and grafts, initial encounter (35) Systolic and diastolic CHF w/reduced LV function, NYHA class 4 Code(s): I50.40 - UNSP COMBINED SYSTOLIC AND DIASTOLIC (CONGESTIVE) HRT FAIL (36) Tachycardia Code(s): R00.0 - TACHYCARDIA, UNSPECIFIED (37) Thrombocytopenia Code(s): D69.6 - THROMBOCYTOPENIA, UNSPECIFIED (38) Venous (peripheral) insufficiency Code(s): I87.2 - VENOUS INSUFFICIENCY (CHRONIC) (PERIPHERAL) Assessment/Plan - Problems (1) Systolic CHF Assessment/Plan: On metoprolol ER for systolic CHF and AF. Consider ACEI (systolic CHF; DM), if BP allows. Code(s): I50.20 - UNSPECIFIED SYSTOLIC (CONGESTIVE) HEART FAILURE (2) Femur fracture, right Assessment/Plan: From a cardiac standpoint, there are no absolute contraindications for Ms. Yoon to undergo femur fracture repair. Code(s): S72.91XA - UNSP FRACTURE OF RIGHT FEMUR, INIT FOR CLOS FX (3) Hyponatremia Code(s): E87.1 - HYPO-OSMOLALITY AND HYPONATREMIA (4) Aortic stenosis Assessment/Plan: mild-moderate , with mildly reduced LVEF, moderate-severely reduced RVEF, and severe pulmonary HTN on 01/2019 ECHO. Code(s): I35.0 - NONRHEUMATIC AORTIC (VALVE) STENOSIS Qualifiers: Cardiac valve disease etiology: nonrheumatic Qualified Code(s): I35.0 - Nonrheumatic aortic (valve) stenosis (5) Atrial fibrillation Assessment/Plan: on metoprolol for HR control (may change to ER for easier compliance). Systemic anticoagulation postoperativelyt Code(s): I48.91 - UNSPECIFIED ATRIAL FIBRILLATION Qualifiers: (6) CAD (coronary artery disease) Code(s): I25.10 - ATHSCL HEART DISEASE OF [place] CORONARY ARTERY W/O ANG PCTRS (7) Hypertension Code(s): I10 - ESSENTIAL (PRIMARY) HYPERTENSION Qualifiers: Hypertension type: essential hypertension Qualified Code(s): I10 - Essential (primary) hypertension (8) Severe protein-calorie malnutrition Code(s): E43 - UNSPECIFIED SEVERE PROTEIN-CALORIE MALNUTRITION (9) Anemia Code(s): D64.9 - ANEMIA, UNSPECIFIED (10) ESRD (end stage renal disease) Assessment/Plan: On hemodialysis per coat maker. Code(s): N18.6 - END STAGE RENAL DISEASE (11) Diabetes Code(s): E11.9 - TYPE 2 DIABETES MELLITUS WITHOUT COMPLICATIONS
--- NOTE | 2019-05-14 16:16 | PN ---
Progress Note (short form) - Note Progress Note: Type 3 periprosthetic fracture Complete femoral bed has disappeared as per CT PLAN Continue bed wheelchair existence
[2019-05-14] MEDS ORDERED: SODIUM CHLORIDE 250 ML IV PRN (17:02)
--- NOTE | 2019-05-14 17:02 | PN ---
Progress Note (short form) - Note Progress Note: Renal follow up for ESRD on HD Seen and examined at the bedside awake and alert continues to have pain in leg no sob, cp, abd pain s/p dialysis yesterday Vital Signs Temperature 96.8 F L 05/14/19 14:00 Pulse Rate 94 H 05/14/19 14:00 Respiratory Rate 20 05/14/19 14:00 Blood Pressure 112/55 L 05/14/19 14:00 O2 Sat by Pulse Oximetry (%) 98 05/14/19 09:00 Intake & Output 05/11/19 05/12/19 05/13/19 05/14/19 23:59 23:59 23:59 23:59 Intake Total 390 620 200 Output Total 3000 Balance 390 -2380 200 Weight 67.727 kg 68.039 kg NAD awake and alert neck supple, no JVD RRR CTA soft NT/ND NO LE edema Current Medications Albuterol Sulfate (Ventolin 0.083% Nebulizer Soln -) 1 amp NEB Q4H PRN PRN Reason: SHORT OF BREATH/WHEEZING Last Admin: 05/14/19 05:16 Dose: 1 amp Docusate Sodium (Colace -) 300 mg PO HS [facility] Last Admin: 05/13/19 21:19 Dose: 300 mg Heparin Sodium (Porcine) (Heparin -) 5,000 unit SQ TID [facility] Last Admin: 05/14/19 14:38 Dose: Not Given Sodium Chloride (Normal Saline -) 250 mls @ 3,000 mls/hr IV PRN PRN PRN Reason: Hypotension during Dialysis Stop: 05/13/19 21:42 Insulin Aspart (Novolog Vial Sliding Scale -) 1 vial SQ ACHS [facility]; Protocol Last Admin: 05/14/19 11:54 Dose: Not Given Levothyroxine Sodium (Synthroid -) 150 mcg PO DAILY@0700 [facility] Last Admin: 05/14/19 07:00 Dose: 150 mcg Metoprolol Tartrate (Lopressor -) 25 mg PO BID [facility] Last Admin: 05/14/19 11:00 Dose: 25 mg Morphine Sulfate (Morphine Sulfate) 2 mg IVPUSH Q6H PRN PRN Reason: PAIN LEVEL 7 - 10 Silver Sulfadiazine (Silvadene -) 1 applic TP DAILY [facility] Last Admin: 05/14/19 11:00 Dose: 1 applic Sodium Hypochlorite (Dakin's Solution 0.25% (Half-Strength) -) 1 applic TP DAILY [facility] Last Admin: 05/14/19 11:00 Dose: 1 applic CBC, BMP 05/14/19 06:41 05/14/19 06:41 84 year old woman with history of ESRD on HD, CHF, CAD, hypertension who presented [place] s/p fall with femur fracture. 1. ESRD on HD 2. Femur fracture 3. Hx of HF, not acutely decompensated 4. CAD 5. Hypertension no acute need for dialysis today, next dialysis is planned for tomorrow Renal diet, 1.2L fluid restriction continue Metoprolol Pain control Thank you Kenny Yeboah DO
[2019-05-14] MEDS: DOCUSATE SODIUM 100 MG CAPSULE (FP) PO SCH (21:44)
[2019-05-15] MEDS: ALBUTEROL SO4 0.083% IH SOL 2.5 MG/3 ML VIAL.NEB. NEB PRN (01:34)
[2019-05-15] MEDS ORDERED: PT OWN MED DRAWER 7, Y5N ONE (06:02)
[2019-05-15] MEDS: HEPARIN NA (PORCINE) 5,000 UNITS/ML 1ML VIAL SQ SCH ×3 (06:15→22:31)
[2019-05-15] MEDS: INSULIN SLIDING SCALE (NOVOLOG) 1 VIAL SQ SCH ×4 (06:15→22:33)
[2019-05-15] MEDS: LEVOTHYROXINE NA 150 MCG TABLET PO SCH (06:16)
[2019-05-15] MEDS: MORPHINE SULFATE 2 MG/ML VIAL IVPUSH PRN (06:33)
--- NOTE | 2019-05-15 09:58 | PN ---
Progress Note, Physician Chief Complaint: AWAKE ALERT LESS PAIN TODAY ORTHOPEDICS NOTE REVIEWED NON-SURGICAL HEALING NEEDED. SURGICAL REPAIR IS NOT AN OPTION PER ORTHOPEDICS - Current Medication List Current Medications: Active Medications Albuterol Sulfate (Ventolin 0.083% Nebulizer Soln -) 1 amp NEB Q4H PRN PRN Reason: SHORT OF BREATH/WHEEZING Last Admin: 05/15/19 01:34 Dose: 1 amp Docusate Sodium (Colace -) 300 mg PO HS [facility] Last Admin: 05/14/19 21:44 Dose: 300 mg Epoetin Cesar (Procrit -) 10,000 unit IVPUSH ONCE ONE Stop: 05/15/19 06:01 Heparin Sodium (Porcine) (Heparin -) 5,000 unit SQ TID [facility] Last Admin: 05/15/19 06:15 Dose: Not Given Sodium Chloride (Normal Saline -) 250 mls @ 3,000 mls/hr IV PRN PRN PRN Reason: Hypotension during Dialysis Stop: 05/13/19 21:42 Sodium Chloride (Normal Saline -) 250 mls @ 3,000 mls/hr IV PRN PRN PRN Reason: Hypotension during Dialysis Stop: 05/15/19 17:02 Insulin Aspart (Novolog Vial Sliding Scale -) 1 vial SQ [facility]; Protocol Last Admin: 05/15/19 06:15 Dose: Not Given Levothyroxine Sodium (Synthroid -) 150 mcg PO DAILY@0700 [facility] Last Admin: 05/15/19 06:16 Dose: 150 mcg Metoprolol Tartrate (Lopressor -) 25 mg PO BID [facility] Last Admin: 05/14/19 21:43 Dose: 25 mg Morphine Sulfate (Morphine Sulfate) 2 mg IVPUSH Q6H PRN PRN Reason: PAIN LEVEL 7 - 10 Last Admin: 05/15/19 06:33 Dose: 2 mg Silver Sulfadiazine (Silvadene -) 1 applic TP DAILY [facility] Last Admin: 05/14/19 11:00 Dose: 1 applic Sodium Hypochlorite (Dakin's Solution 0.25% (Half-Strength) -) 1 applic TP DAILY [facility] Last Admin: 05/14/19 11:00 Dose: 1 applic - Objective Vital Signs: Vital Signs Temperature 98.6 F 05/15/19 06:56 Pulse Rate 80 05/15/19 06:56 Respiratory Rate 20 05/15/19 06:56 Blood Pressure 100/56 L 05/15/19 06:56 O2 Sat by Pulse Oximetry (%) 98 05/14/19 21:00 Constitutional: Yes: Mild Distress Cardiovascular: Yes: Pulse Irregular Respiratory: Yes: On Nasal O2 Gastrointestinal: Yes: Soft Genitourinary: Yes: Incontinence Extremities: Yes: Deformity (RIGHT LOWER EXTREMITY) Edema: No Integumentary: Yes: Rash, Venous Stasis Changes Wound/Incision: Yes: Dressing Dry and Intact Neurological: Yes: Pre-Existing Deficit, Unsteady Gait, Weakness ...Motor Strength: RLE Psychiatric: Yes: Other Labs: CBC, BMP 05/14/19 06:41 05/14/19 06:41 INR, PTT INR 1.19 (0.83-1.09) H 05/13/19 06:07 Problem List - Problems (1) Anemia Code(s): D64.9 - ANEMIA, UNSPECIFIED (2) ESRD (end stage renal disease) Code(s): N18.6 - END STAGE RENAL DISEASE (3) Femur fracture, right Code(s): S72.91XA - UNSP FRACTURE OF RIGHT FEMUR, INIT FOR CLOS FX (4) Hyponatremia Code(s): E87.1 - HYPO-OSMOLALITY AND HYPONATREMIA (5) Systolic CHF Code(s): I50.20 - UNSPECIFIED SYSTOLIC (CONGESTIVE) HEART FAILURE (6) Atrial fibrillation Code(s): I48.91 - UNSPECIFIED ATRIAL FIBRILLATION Qualifiers: (7) Diabetes Code(s): E11.9 - TYPE 2 DIABETES MELLITUS WITHOUT COMPLICATIONS (8) H/O heart artery stent Code(s): Z95.5 - PRESENCE OF CORONARY ANGIOPLASTY IMPLANT AND GRAFT Assessment/Plan DISCUSSED THE PATIENT'S RIGHT LOWER EXTREMITY FRACTURE WITH ORTHOPEDICS DR CAR. PATIENT HAS SEVERE BONE FRACTURES DUE TO BOTH WEAK MINERAL (OSTEOPOROSIS) AND WOUND HEALING POOR. THE ONLY OPTION WOULD BE TO REMOVE THE ENTIRE FEMUR AND PLACE A METAL KRISTEN A RIGHT LEG. AT 84 Y/O WITH HER MEDICAL HISTORY THIS IS NOT RECOMMENDED BECAUSE OF INCREASED RISK OF INFECTIONS, PROLONGED ANESTHESIA AND H/O CARDIAC DISEASE WITH ESRD-HD. RECOMMENDATION IS BED REST AND PAIN CONTROL UNTIL PATIENT CAN START PHYSICAL THERAPY AND BEAR WEIGHT TO RIGHT LEG. WILL START SOCIAL WORK FOR PLACEMENT TO A REHAB WITH HEMODIALYSIS. CHECK LABS IN AM
[2019-05-15] MEDS: METOPROLOL TARTRATE 25 MG TABLET (FP) PO SCH ×2 (11:02→22:38)
[2019-05-15 12:45] LABS: HEMATOCRIT 28.4 % (32.4-45.2); MCH 34.6 pg (25.7-33.7); MCHC 31.7 g/dl (32.0-36.0); MEAN CELL VOLUME 109.4 fl (80-96); MEAN PLT VOLUME 7.8 fl (7.5-11.1); PLATELET COUNT 150 K/MM3 (134-434); RBC 2.59 M/mm3 (3.60-5.2); RDW 15.5 % (11.6-15.6); WHITE BLOOD COUNT 6.8 K/mm3 (4.0-10.0)
[2019-05-15] MEDS ORDERED: EPOETIN ALFA 10,000 UNIT/1 ML VIAL IVPUSH ONE (13:00)
[2019-05-15 13:19] LABS: ALBUMIN 1.7 g/dl (3.4-5.0); ALK PHOS 208 U/L (45-117); ANION GAP 7 MMOL/L (8-16); BILIRUBIN,TOTAL 0.6 mg/dL (0.2-1); BLOOD UREA NITROGEN 47.3 mg/dL (7-18); CALCIUM 8.4 mg/dL (8.5-10.1); CHLORIDE 95 mmol/L (98-107); CO2 31 mmol/L (21-32); CREATININE 4.2 mg/dL (0.55-1.3); GLUCOSE,RANDOM 109 mg/dL (74-106); PHOSPHOROUS 3.7 mg/dL (2.5-4.9); POTASSIUM 3.8 mmol/L (3.5-5.1); SGOT/AST 14 U/L (15-37); SGPT/ALT < 6 U/L (13-61); SODIUM 133 mmol/L (136-145); TOT PROT 6.9 g/dl (6.4-8.2)
--- NOTE | 2019-05-15 15:22 | PN ---
Progress Note (short form) - Note Progress Note: Renal follow up for ESRD on HD Seen and examined during dialysis BP 96/60, BFR at goal. UF goal is 1.5L. Access pressures are WNL Pt continues to have pain in her leg surgery is deferred Vital Signs Temperature 97.7 F 05/15/19 11:50 Pulse Rate 104 H 05/15/19 14:25 Respiratory Rate 18 05/15/19 14:25 Blood Pressure 106/55 L 05/15/19 14:25 O2 Sat by Pulse Oximetry (%) 98 05/14/19 21:00 Intake & Output 05/12/19 05/13/19 05/14/19 05/15/19 23:59 23:59 23:59 23:59 Intake Total 390 620 450 350 Output Total 3000 Balance 390 -2380 450 350 Weight 67.727 kg 68.039 kg 69.059 kg NAD awake and alert neck supple, no JVD RRR CTA soft NT/ND NO LE edema CBC, BMP 05/15/19 12:00 05/15/19 12:00 Current Medications Albuterol Sulfate (Ventolin 0.083% Nebulizer Soln -) 1 amp NEB Q4H PRN PRN Reason: SHORT OF BREATH/WHEEZING Last Admin: 05/15/19 01:34 Dose: 1 amp Docusate Sodium (Colace -) 300 mg PO HS [facility] Last Admin: 05/14/19 21:44 Dose: 300 mg Heparin Sodium (Porcine) (Heparin -) 5,000 unit SQ TID [facility] Last Admin: 05/15/19 06:15 Dose: Not Given Sodium Chloride (Normal Saline -) 250 mls @ 3,000 mls/hr IV PRN PRN PRN Reason: Hypotension during Dialysis Stop: 05/15/19 17:02 Insulin Aspart (Novolog Vial Sliding Scale -) 1 vial SQ ACHS [facility]; Protocol Last Admin: 05/15/19 13:41 Dose: Not Given Levothyroxine Sodium (Synthroid -) 150 mcg PO DAILY@0700 [facility] Last Admin: 05/15/19 06:16 Dose: 150 mcg Metoprolol Tartrate (Lopressor -) 25 mg PO BID [facility] Last Admin: 05/15/19 11:02 Dose: Not Given Morphine Sulfate (Morphine Sulfate) 2 mg IVPUSH Q6H PRN PRN Reason: PAIN LEVEL 7 - 10 Last Admin: 05/15/19 06:33 Dose: 2 mg Silver Sulfadiazine (Silvadene -) 1 applic TP DAILY [facility] Last Admin: 05/14/19 11:00 Dose: 1 applic Sodium Hypochlorite (Dakin's Solution 0.25% (Half-Strength) -) 1 applic TP DAILY [facility] Last Admin: 05/14/19 11:00 Dose: 1 applic 84 year old woman with history of ESRD on HD, CHF, CAD, hypertension who presented [place] s/p fall with femur fracture. 1. ESRD on HD 2. Femur fracture 3. Hx of HF, not acutely decompensated 4. CAD 5. Hypertension Tolerating dialysis well today Continue Renal diet, 1.2L fluid restriction continue pain control and supportive care for LE fracture Thank you Kenny Yeboah DO
[2019-05-15 16:36] LABS: BLOOD UREA NITROGEN 11.6 mg/dL (7-18); CREATININE 1.3 mg/dL (0.55-1.3)
[2019-05-15] MEDS: SODIUM HYPOCHLORITE 0.25%- 473 ML BULK BOTTLE TP SCH (17:48)
[2019-05-15] MEDS: SILVER SULFADIAZINE 1% TOP CREAM 50 GM JAR TP SCH (17:48)
[2019-05-15] MEDS: DOCUSATE SODIUM 100 MG CAPSULE (FP) PO SCH (22:38)
--- NOTE | 2019-05-15 22:55 | PN ---
Progress Note, Physician Chief Complaint: Pt is alert and oriented; upset that surgery to repair the LE fracture cannot be done, but hopes that cast, physical therapy and pain medication will help. History of Present Illness: Ms. Joseph is an 84 yo white female with pmh of ESRD on HD (TTS), diastolic CHF , Afib, CAD, HTN and R hip replacement by Dr. Tinoco who presents to the ED 2 days after a fall in [facility]. Pt states she was seated on an air mattress, fell with right femur pain however was not assessed or x rayed until last night. Pt describes significant pain in the right femur with deformity, however , she is able to move her toes and has full sensation in her right distal ext. She denies chest pain; she does become dysneic on mild exertion. - Current Medication List Current Medications: Active Medications Albuterol Sulfate (Ventolin 0.083% Nebulizer Soln -) 1 amp NEB Q4H PRN PRN Reason: SHORT OF BREATH/WHEEZING Last Admin: 05/15/19 01:34 Dose: 1 amp Docusate Sodium (Colace -) 300 mg PO HS [facility] Last Admin: 05/15/19 22:38 Dose: 300 mg Heparin Sodium (Porcine) (Heparin -) 5,000 unit SQ TID [facility] Last Admin: 05/15/19 22:31 Dose: Not Given Insulin Aspart (Novolog Vial Sliding Scale -) 1 vial SQ ACHS [facility]; Protocol Last Admin: 05/15/19 22:33 Dose: Not Given Levothyroxine Sodium (Synthroid -) 150 mcg PO DAILY@0700 [facility] Last Admin: 05/15/19 06:16 Dose: 150 mcg Metoprolol Tartrate (Lopressor -) 25 mg PO BID [facility] Last Admin: 05/15/19 22:38 Dose: 25 mg Morphine Sulfate (Morphine Sulfate) 2 mg IVPUSH Q6H PRN PRN Reason: PAIN LEVEL 7 - 10 Last Admin: 05/15/19 06:33 Dose: 2 mg Silver Sulfadiazine (Silvadene -) 1 applic TP DAILY [facility] Last Admin: 05/15/19 17:48 Dose: 1 applic Sodium Hypochlorite (Dakin's Solution 0.25% (Half-Strength) -) 1 applic TP DAILY [facility] Last Admin: 05/15/19 17:48 Dose: 1 applic - Objective Vital Signs: Vital Signs Temperature 98.7 F 05/15/19 17:13 Pulse Rate 102 H 05/15/19 17:13 Respiratory Rate 20 05/15/19 17:13 Blood Pressure 112/60 05/15/19 17:13 O2 Sat by Pulse Oximetry (%) 97 05/15/19 09:00 Labs: CBC, BMP 05/15/19 12:00 05/15/19 15:15 INR, PTT INR 1.19 (0.83-1.09) H 05/13/19 06:07 Problem List - Problems (1) Systolic CHF Assessment/Plan: On metoprolol ER for systolic CHF and AF. Consider ACEI (systolic CHF; DM), if BP allows. Code(s): I50.20 - UNSPECIFIED SYSTOLIC (CONGESTIVE) HEART FAILURE (2) Femur fracture, right Assessment/Plan: From a cardiac standpoint, there are no absolute contraindications for Ms. Yoon to undergo femur fracture repair. However, now noted that procedure cannot be done. Code(s): S72.91XA - UNSP FRACTURE OF RIGHT FEMUR, INIT FOR CLOS FX (3) Hyponatremia Assessment/Plan: Improving ; now 133 Code(s): E87.1 - HYPO-OSMOLALITY AND HYPONATREMIA (4) Aortic stenosis Assessment/Plan: mild-moderate , with mildly reduced LVEF, moderate-severely reduced RVEF, and severe pulmonary HTN on 01/2019 ECHO. Code(s): I35.0 - NONRHEUMATIC AORTIC (VALVE) STENOSIS Qualifiers: Cardiac valve disease etiology: nonrheumatic Qualified Code(s): I35.0 - Nonrheumatic aortic (valve) stenosis (5) Atrial fibrillation Assessment/Plan: on metoprolol for HR control (may change to ER for easier compliance). Systemic anticoagulation (e.g. DOAC) unless contraindications exist. Code(s): I48.91 - UNSPECIFIED ATRIAL FIBRILLATION Qualifiers: (6) CAD (coronary artery disease) Code(s): I25.10 - ATHSCL HEART DISEASE OF [place] CORONARY ARTERY W/O ANG PCTRS (7) Hypertension Code(s): I10 - ESSENTIAL (PRIMARY) HYPERTENSION Qualifiers: Hypertension type: essential hypertension Qualified Code(s): I10 - Essential (primary) hypertension (8) Severe protein-calorie malnutrition Code(s): E43 - UNSPECIFIED SEVERE PROTEIN-CALORIE MALNUTRITION (9) Anemia Code(s): D64.9 - ANEMIA, UNSPECIFIED (10) ESRD (end stage renal disease) Code(s): N18.6 - END STAGE RENAL DISEASE (11) Diabetes Code(s): E11.9 - TYPE 2 DIABETES MELLITUS WITHOUT COMPLICATIONS
[2019-05-16] MEDS: HEPARIN NA (PORCINE) 5,000 UNITS/ML 1ML VIAL SQ SCH ×3 (06:31→21:45)
[2019-05-16] MEDS: INSULIN SLIDING SCALE (NOVOLOG) 1 VIAL SQ SCH ×4 (06:33→21:46)
[2019-05-16] MEDS: LEVOTHYROXINE NA 75 MCG TABLET (FP) PO SCH (06:33)
[2019-05-16 06:45] LABS: HEMOGLOBIN 9.1 GM/dL (10.7-15.3); MCH 34.8 pg (25.7-33.7); MCHC 31.5 g/dl (32.0-36.0); MEAN CELL VOLUME 110.4 fl (80-96); MEAN PLT VOLUME 7.7 fl (7.5-11.1); PLATELET COUNT 142 K/MM3 (134-434); RBC 2.63 M/mm3 (3.60-5.2); RDW 15.8 % (11.6-15.6); WHITE BLOOD COUNT 5.9 K/mm3 (4.0-10.0)
[2019-05-16 07:37] LABS: CALCIUM 8.8 mg/dL (8.5-10.1); CREATININE 2.5 mg/dL (0.55-1.3); POTASSIUM 3.5 mmol/L (3.5-5.1)
--- NOTE | 2019-05-16 10:36 | DS ---
Physical Examination Vital Signs: Vital Signs Temperature 97.9 F 05/16/19 06:46 Pulse Rate 99 H 05/16/19 06:46 Respiratory Rate 20 05/16/19 06:46 Blood Pressure 116/56 L 05/16/19 06:46 O2 Sat by Pulse Oximetry (%) 98 05/15/19 21:00 Findings/Remarks: SEEN BY ORTHOPEDICS AND PLAN IS TO PLACE BRACE RIGHT LOWER EXTREMITY AND RETURN FOR SURGERY IN SEVERAL WEEKS Constitutional: Yes: Mild Distress Cardiovascular: Yes: Pulse Irregular Respiratory: Yes: WNL Gastrointestinal: Yes: Soft Renal/: Yes: Other Musculoskeletal: Yes: Back Pain, Joint Stiffness, Muscle Pain, Muscle Weakness Extremities: Yes: Deformity Edema: Yes Integumentary: Yes: Rash, Venous Stasis Changes Wound/Incision: Yes: Draining, Unapproximated Neurological: Yes: Pre-Existing Deficit ...Motor Strength: RLE Labs: CBC, BMP 05/16/19 06:00 05/16/19 06:00 Discharge Summary Reason For Visit: FRACTURE OF RIGHT FEMUR Current Active Problems Anemia (Acute) ESRD (end stage renal disease) (Acute) Femur fracture, right (Acute) Hyponatremia (Acute) Systolic CHF (Acute) Procedures: Principal: CT SCAN/XRAYS Hospital Course: PATIENT HAS A SEVERE LOWER RIGHT EXTREMITY FRACTURE AND ORTHOPEDICS DOES WANT TO OPERATE AT THIS TIME. PLAN IS TO PLACE BRACE TO RIGHT LEG AND RETURN IN SEVERAL WEEKS FOR SURGERY. OUTPATIENT FOLLOW UP WITH DR WEBSTER Condition: Stable - Instructions Diet, Activity, Other Instructions: SEE DR WEBSTER OUTPATIENT ORTHOPEDIC FOLLOW UP WILL NEED SURGERY IN NEAR FUTURE DECIDED BY DR WEBSTER AND PATIENT Disposition: [facility] - Home Medications Comprehensive Discharge Medication List: Ambulatory Orders Cinacalcet HCl [Sensipar] 30 mg PO ASDIR 07/22/17 Magnesium Oxide 400 mg PO DAILY 07/22/17 Aspirin Coated [Ecotrin -] 81 mg PO DAILY tablet.ec 08/01/17 Folic Acid/Vit B Complex and C [Dialyvite 800 Tablet] 0.8 mg PO DAILY 01/21/19 Insulin (Novolog 70/30) [Novolog Mix 70/30 Vial -] 8 ml SQ ASDIR 01/21/19 Insulin Sliding Scale [Novolog Vial Sliding Scale -] 6 units SQ AM 01/21/19 Levothyroxine [Synthroid -] 150 mcg PO DAILY@0700 #30 tablet 02/15/19 Metoprolol Tartrate [Lopressor -] 25 mg PO BID #60 tablet 02/15/19 Albuterol 0.083% Nebulizer [place] [Ventolin 0.083% Nebulizer Soln -] 1 amp NEB Q4H PRN amp 05/16/19 Docusate Sodium [Colace -] 300 mg PO HS capsule 05/16/19 Heparin - 5,000 unit SQ TID vial 05/16/19 Insulin Sliding Scale [Novolog Vial Sliding Scale -] 1 vial SQ ACHS units 05/16 Levothyroxine [Synthroid -] 150 mcg PO DAILY@0700 tablet 05/16/19 Levothyroxine [Synthroid -] 150 mcg PO DAILY@0700 tablet 05/16/19 Metoprolol Tartrate [Lopressor -] 25 mg PO BID tablet 05/16/19 Oxycodone HCl [Roxicodone] 5 mg PO QID PRN #90 tablet MDD 4 05/16/19 Silver Sulfadiazine 1% Top Cr [Silvadene -] 1 applic TP DAILY jar 05/16/19 Sodium Hypochlorite [Dakin's Solution 0.25% (Half-Strength) -] 1 applic TP DAILY ml 05/16/19
--- NOTE | 2019-05-16 11:11 | PN ---
Progress Note, Physician History of Present Illness: 83 yo female pmh of ESRD on HD (TTS), CHF, Afib, CAD, HTN and R hip replacement by Dr. Tinoco presents to the ED 2 days after a fall in [facility]. Pt states she was seated on an air mattress, fell with right femur pain however was not assessed or x rayed until last night. Pt describes significant pain in the right femur with deformity, however, she is able to move her toes and has full sensation in her right distal ext. Pt denies recent illness, AC, fals in the past, CP, SOB, back pain, changes in bowel or bladder habits, abdominal pain PMH Atrial fibrillation Bare metal stent of ostial LCx April 01, 2015 Dr. Elizabeth CAD - mLAD 30% , oLCx 90%, RPDA 40% March 05, 2015 Dr. Elizabeth Diabetes mellitus, type II 1997 Dialysis 2010 End stage renal disease Hypertension Hypothyroidism Mildly reduced EF 48% February 2016 Moderate mean PG 23 mmHg February 2016 Severe GI bleed 2006 - Current Medication List Current Medications: Active Medications Albuterol Sulfate (Ventolin 0.083% Nebulizer Soln -) 1 amp NEB Q4H PRN PRN Reason: SHORT OF BREATH/WHEEZING Last Admin: 05/15/19 01:34 Dose: 1 amp Docusate Sodium (Colace -) 300 mg PO HS [facility] Last Admin: 05/15/19 22:38 Dose: 300 mg Heparin Sodium (Porcine) (Heparin -) 5,000 unit SQ TID [facility] Last Admin: 05/16/19 06:31 Dose: Not Given Insulin Aspart (Novolog Vial Sliding Scale -) 1 vial SQ ACHS [facility]; Protocol Last Admin: 05/16/19 06:33 Dose: Not Given Levothyroxine Sodium (Synthroid -) 150 mcg PO DAILY@0700 [facility] Last Admin: 05/16/19 06:33 Dose: 150 mcg Metoprolol Tartrate (Lopressor -) 25 mg PO BID [facility] Last Admin: 05/15/19 22:38 Dose: 25 mg Morphine Sulfate (Morphine Sulfate) 2 mg IVPUSH Q6H PRN PRN Reason: PAIN LEVEL 7 - 10 Last Admin: 05/15/19 06:33 Dose: 2 mg Silver Sulfadiazine (Silvadene -) 1 applic TP DAILY [facility] Last Admin: 05/15/19 17:48 Dose: 1 applic Sodium Hypochlorite (Dakin's Solution 0.25% (Half-Strength) -) 1 applic TP DAILY [facility] Last Admin: 05/15/19 17:48 Dose: 1 applic - Objective Vital Signs: Vital Signs Temperature 97.9 F 05/16/19 06:46 Pulse Rate 99 H 05/16/19 06:46 Respiratory Rate 20 05/16/19 06:46 Blood Pressure 116/56 L 05/16/19 06:46 O2 Sat by Pulse Oximetry (%) 98 05/15/19 21:00 Eyes: Yes: WNL, Conjunctiva Clear, EOM Intact HENT: Yes: WNL, Atraumatic, Normocephalic Neck: Yes: WNL, Supple, Trachea Midline Cardiovascular: Yes: Pulse Irregular, S1, S2 Respiratory: Yes: WNL, Regular, CTA Bilaterally Gastrointestinal: Yes: WNL, Normal Bowel Sounds Genitourinary: Yes: WNL Musculoskeletal: Yes: WNL Extremities: Yes: WNL Edema: No Integumentary: Yes: WNL Neurological: Yes: WNL, Alert, Oriented ...Motor Strength: WNL Psychiatric: Yes: WNL Labs: CBC, BMP 05/16/19 06:00 05/16/19 06:00 INR, PTT INR 1.19 (0.83-1.09) H 05/13/19 06:07 Problem List - Problems (1) Femur fracture, right Code(s): S72.91XA - UNSP FRACTURE OF RIGHT FEMUR, INIT FOR CLOS FX (2) AV fistula occlusion Code(s): T82.898A - [facility] COMPLICATION OF VASCULAR PROSTH DEV/GRFT, INIT Qualifiers: Encounter type: initial encounter Qualified Code(s): T82.898A - Other specified complication of vascular prosthetic devices, implants and grafts, initial encounter (3) Anterior epistaxis Code(s): R04.0 - EPISTAXIS (4) Aortic stenosis Code(s): I35.0 - NONRHEUMATIC AORTIC (VALVE) STENOSIS Qualifiers: Cardiac valve disease etiology: nonrheumatic Qualified Code(s): I35.0 - Nonrheumatic aortic (valve) stenosis (5) Atrial fibrillation Code(s): I48.91 - UNSPECIFIED ATRIAL FIBRILLATION Qualifiers: (6) CAD (coronary artery disease) Code(s): I25.10 - ATHSCL HEART DISEASE OF [place] CORONARY ARTERY W/O ANG PCTRS (7) Cellulitis Code(s): L03.90 - CELLULITIS, UNSPECIFIED (8) Cellulitis and abscess of right lower extremity Code(s): L03.115 - CELLULITIS OF RIGHT LOWER LIMB; L02.415 - CUTANEOUS ABSCESS OF RIGHT LOWER LIMB (9) Congestive heart failure (CHF) Code(s): I50.9 - HEART FAILURE, UNSPECIFIED Qualifiers: Heart failure type: unspecified Heart failure chronicity: acute on chronic Qualified Code(s): I50.9 - Heart failure, unspecified (10) Diabetes Code(s): E11.9 - TYPE 2 DIABETES MELLITUS WITHOUT COMPLICATIONS (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, managed as type 1 Code(s): E10.9 - TYPE 1 DIABETES MELLITUS WITHOUT COMPLICATIONS (12) Diabetic acetonemia Code(s): E10.10 - TYPE 1 DIABETES MELLITUS WITH KETOACIDOSIS WITHOUT COMA (13) Diabetic foot ulcer Code(s): E11.621 - TYPE 2 DIABETES MELLITUS WITH FOOT ULCER; L97.509 - NON- PRESSURE CHRONIC ULCER OTH PRT UNSP FOOT W UNSP SEVERITY Qualifiers: Laterality: right (14) ESRD (end stage renal disease) on dialysis Code(s): N18.6 - END STAGE RENAL DISEASE; Z99.2 - DEPENDENCE ON RENAL DIALYSIS (15) Epistaxis Code(s): R04.0 - EPISTAXIS (16) Fever Code(s): R50.9 - FEVER, UNSPECIFIED (17) H/O heart artery stent Code(s): Z95.5 - PRESENCE OF CORONARY ANGIOPLASTY IMPLANT AND GRAFT (18) Hip pain, right Code(s): M25.551 - PAIN IN RIGHT HIP (19) Hyperlipidemia Code(s): E78.5 - HYPERLIPIDEMIA, UNSPECIFIED Qualifiers: Hyperlipidemia type: pure hypercholesterolemia Qualified Code(s): E78.00 - Pure hypercholesterolemia, unspecified; E78.0 - Pure hypercholesterolemia (20) Hyperparathyroidism Code(s): E21.3 - HYPERPARATHYROIDISM, UNSPECIFIED (21) 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 (22) Hypertension Code(s): I10 - ESSENTIAL (PRIMARY) HYPERTENSION Qualifiers: Hypertension type: essential hypertension Qualified Code(s): I10 - Essential (primary) hypertension (23) Hypotension Code(s): I95.9 - HYPOTENSION, UNSPECIFIED (24) Hypothyroid Code(s): E03.9 - HYPOTHYROIDISM, UNSPECIFIED Qualifiers: (25) Lower GI bleed Code(s): K92.2 - GASTROINTESTINAL HEMORRHAGE, UNSPECIFIED (26) Penicillin allergy Code(s): Z88.0 - ALLERGY STATUS TO PENICILLIN (27) Pneumonia Code(s): J18.9 - PNEUMONIA, UNSPECIFIED ORGANISM (28) Pressure ulcer of foot Code(s): L89.899 - PRESSURE ULCER OF OTHER SITE, UNSPECIFIED STAGE (29) Renal dialysis status Code(s): Z99.2 - DEPENDENCE ON RENAL DIALYSIS (30) Right ventricular dysfunction Code(s): I51.9 - HEART DISEASE, UNSPECIFIED (31) S/P hip replacement Code(s): Z96.649 - PRESENCE OF UNSPECIFIED ARTIFICIAL HIP JOINT (32) Sepsis Code(s): A41.9 - SEPSIS, UNSPECIFIED ORGANISM Qualifiers: Sepsis type: sepsis due to unspecified organism Qualified Code(s): A41.9 - Sepsis, unspecified organism (33) Severe protein-calorie malnutrition Code(s): E43 - UNSPECIFIED SEVERE PROTEIN-CALORIE MALNUTRITION (34) Stenosis of AV fistula Code(s): T82.858A - STENOSIS OF OTHER VASCULAR PROSTH DEV/GRFT, INIT Qualifiers: Encounter type: initial encounter Qualified Code(s): T82.858A - Stenosis of other vascular prosthetic devices, implants and grafts, initial encounter (35) Systolic and diastolic CHF w/reduced LV function, NYHA class 4 Code(s): I50.40 - UNSP COMBINED SYSTOLIC AND DIASTOLIC (CONGESTIVE) HRT FAIL (36) Tachycardia Code(s): R00.0 - TACHYCARDIA, UNSPECIFIED (37) Thrombocytopenia Code(s): D69.6 - THROMBOCYTOPENIA, UNSPECIFIED (38) Venous (peripheral) insufficiency Code(s): I87.2 - VENOUS INSUFFICIENCY (CHRONIC) (PERIPHERAL) Assessment/Plan Problems (1) Systolic CHF Assessment/Plan: On metoprolol ER for systolic CHF and AF. Consider ACEI (systolic CHF; DM), if BP allows. Code(s): I50.20 - UNSPECIFIED SYSTOLIC (CONGESTIVE) HEART FAILURE (2) Femur fracture, right Assessment/Plan: From a cardiac standpoint, there are no absolute contraindications for Ms. Yoon to undergo femur fracture repair. However, now noted that procedure cannot be done. Code(s): S72.91XA - UNSP FRACTURE OF RIGHT FEMUR, INIT FOR CLOS FX (3) Hyponatremia Assessment/Plan: Improving ; now 133 Code(s): E87.1 - HYPO-OSMOLALITY AND HYPONATREMIA (4) Aortic stenosis Assessment/Plan: mild-moderate , with mildly reduced LVEF, moderate-severely reduced RVEF, and severe pulmonary HTN on 01/2019 ECHO. Code(s): I35.0 - NONRHEUMATIC AORTIC (VALVE) STENOSIS Qualifiers: Cardiac valve disease etiology: nonrheumatic Qualified Code(s): I35.0 - Nonrheumatic aortic (valve) stenosis (5) Atrial fibrillation Assessment/Plan: on metoprolol for HR control (may change to ER for easier compliance). Systemic anticoagulation (e.g. DOAC) unless contraindications exist. Code(s): I48.91 - UNSPECIFIED ATRIAL FIBRILLATION Qualifiers: (6) CAD (coronary artery disease) Code(s): I25.10 - ATHSCL HEART DISEASE OF [place] CORONARY ARTERY W/O ANG PCTRS (7) Hypertension Code(s): I10 - ESSENTIAL (PRIMARY) HYPERTENSION Qualifiers: Hypertension type: essential hypertension Qualified Code(s): I10 - Essential (primary) hypertension (8) Severe protein-calorie malnutrition Code(s): E43 - UNSPECIFIED SEVERE PROTEIN-CALORIE MALNUTRITION (9) Anemia Code(s): D64.9 - ANEMIA, UNSPECIFIED (10) ESRD (end stage renal disease) Code(s): N18.6 - END STAGE RENAL DISEASE (11) Diabetes Code(s): E11.9 - TYPE 2 DIABETES MELLITUS WITHOUT COMPLICATIONS
[2019-05-16] MEDS: METOPROLOL TARTRATE 25 MG TABLET (FP) PO SCH ×2 (11:19→21:46)
[2019-05-16] MEDS: SILVER SULFADIAZINE 1% TOP CREAM 50 GM JAR TP SCH (12:38)
[2019-05-16] MEDS: SODIUM HYPOCHLORITE 0.25%- 473 ML BULK BOTTLE TP SCH (12:39)
[2019-05-16] MEDS: MORPHINE SULFATE 2 MG/ML VIAL IVPUSH PRN (14:59)
--- NOTE | 2019-05-16 15:39 | PN ---
Progress Note (short form) - Note Progress Note: Renal follow up for ESRD on HD Seen and examined at the bedside awake and alert has continued pain in LE s/p dialysis yesterday Vital Signs Temperature 98.4 F 05/16/19 14:00 Pulse Rate 87 05/16/19 14:00 Respiratory Rate 20 05/16/19 14:00 Blood Pressure 97/51 L 05/16/19 14:00 O2 Sat by Pulse Oximetry (%) 98 05/15/19 21:00 Intake & Output 05/13/19 05/14/19 05/15/19 05/16/19 23:59 23:59 23:59 23:59 Intake Total 620 450 850 0 Output Total 3000 1900 Balance -2380 450 -1050 0 Weight 68.039 kg 69.059 kg NAD awake and alert neck supple, no JVD RRR CTA soft NT/ND NO LE edema CBC, BMP 05/16/19 06:00 05/16/19 06:00 Current Medications Albuterol Sulfate (Ventolin 0.083% Nebulizer Soln -) 1 amp NEB Q4H PRN PRN Reason: SHORT OF BREATH/WHEEZING Last Admin: 05/15/19 01:34 Dose: 1 amp Docusate Sodium (Colace -) 300 mg PO HS [facility] Last Admin: 05/15/19 22:38 Dose: 300 mg Heparin Sodium (Porcine) (Heparin -) 5,000 unit SQ TID [facility] Last Admin: 05/16/19 15:01 Dose: Not Given Insulin Aspart (Novolog Vial Sliding Scale -) 1 vial SQ ACHS [facility]; Protocol Last Admin: 05/16/19 11:55 Dose: Not Given Levothyroxine Sodium (Synthroid -) 150 mcg PO DAILY@0700 [facility] Last Admin: 05/16/19 06:33 Dose: 150 mcg Metoprolol Tartrate (Lopressor -) 25 mg PO BID [facility] Last Admin: 05/16/19 11:19 Dose: 25 mg Morphine Sulfate (Morphine Sulfate) 2 mg IVPUSH Q6H PRN PRN Reason: PAIN LEVEL 7 - 10 Last Admin: 05/16/19 14:59 Dose: 2 mg Silver Sulfadiazine (Silvadene -) 1 applic TP DAILY [facility] Last Admin: 05/16/19 12:38 Dose: 1 applic Sodium Hypochlorite (Dakin's Solution 0.25% (Half-Strength) -) 1 applic TP DAILY [facility] Last Admin: 05/16/19 12:39 Dose: 1 applic 84 year old woman with history of ESRD on HD, CHF, CAD, hypertension who presented form [place] s/p fall with femur fracture. 1. ESRD on HD 2. Femur fracture 3. Hx of HF, not acutely decompensated 4. CAD 5. Hypertension no autte indication for dialysis today. Next planned HD is tomorrow for discharge back to rehab today as per primary team continue pain control and supportive care to be re-evaluated by orthopedics in 1 month. Thank you Kenny Yeboah DO
[2019-05-16] MEDS: DOCUSATE SODIUM 100 MG CAPSULE (FP) PO SCH ×2 (21:46→23:02)
[2019-05-17] MEDS: ALBUTEROL SO4 0.083% IH SOL 2.5 MG/3 ML VIAL.NEB. NEB PRN (00:27)
[2019-05-17] MEDS: LEVOTHYROXINE NA 75 MCG TABLET (FP) PO SCH (06:22)
[2019-05-17] MEDS ORDERED: SODIUM CHLORIDE 250 ML IV PRN (08:56)
[2019-05-17] MEDS ORDERED: EPOETIN ALFA 10,000 UNIT/1 ML VIAL IVPUSH ONE (09:30)
[2019-05-17 10:11] LABS: HEMATOCRIT 28.3 % (32.4-45.2); HEMOGLOBIN 8.9 GM/dL (10.7-15.3); MCH 34.2 pg (25.7-33.7); MCHC 31.4 g/dl (32.0-36.0); MEAN CELL VOLUME 109.1 fl (80-96); MEAN PLT VOLUME 7.8 fl (7.5-11.1); PLATELET COUNT 146 K/MM3 (134-434); RDW 15.4 % (11.6-15.6); WHITE BLOOD COUNT 6.4 K/mm3 (4.0-10.0)
--- NOTE | 2019-05-17 10:28 | PN ---
Progress Note, Physician Chief Complaint: AWAKE IN HD PAIN CONTROLLED WITH MEDS - Current Medication List Current Medications: Active Medications Albuterol Sulfate (Ventolin 0.083% Nebulizer Soln -) 1 amp NEB Q4H PRN PRN Reason: SHORT OF BREATH/WHEEZING Last Admin: 05/17/19 00:27 Dose: 1 amp Docusate Sodium (Colace -) 300 mg PO HS [facility] Last Admin: 05/16/19 23:02 Dose: Not Given Heparin Sodium (Porcine) (Heparin -) 5,000 unit SQ TID [facility] Last Admin: 05/16/19 21:45 Dose: Not Given Sodium Chloride (Normal Saline -) 250 mls @ 3,000 mls/hr IV PRN PRN PRN Reason: Hypotension during Dialysis Stop: 05/18/19 08:55 Insulin Aspart (Novolog Vial Sliding Scale -) 1 vial SQ ACHS [facility]; Protocol Last Admin: 05/16/19 21:46 Dose: Not Given Levothyroxine Sodium (Synthroid -) 150 mcg PO DAILY@0700 [facility] Last Admin: 05/17/19 06:22 Dose: 150 mcg Metoprolol Tartrate (Lopressor -) 25 mg PO BID [facility] Last Admin: 05/16/19 21:46 Dose: Not Given Silver Sulfadiazine (Silvadene -) 1 applic TP DAILY [facility] Last Admin: 05/16/19 12:38 Dose: 1 applic Sodium Hypochlorite (Dakin's Solution 0.25% (Half-Strength) -) 1 applic TP DAILY [facility] Last Admin: 05/16/19 12:39 Dose: 1 applic - Objective Vital Signs: Vital Signs Temperature 97.9 F 05/17/19 09:35 Pulse Rate 108 H 05/17/19 09:40 Respiratory Rate 18 05/17/19 09:40 Blood Pressure 112/62 05/17/19 09:40 O2 Sat by Pulse Oximetry (%) 98 05/16/19 21:00 Constitutional: Yes: Mild Distress Cardiovascular: Yes: Pulse Irregular Respiratory: Yes: Diminished Gastrointestinal: Yes: Soft Genitourinary: Yes: Incontinence, Other Musculoskeletal: Yes: Muscle Pain, Muscle Weakness Extremities: Yes: Deformity Integumentary: Yes: Rash, Venous Stasis Changes Wound/Incision: Yes: Open to air Neurological: Yes: Other ...Motor Strength: RLE Labs: CBC, BMP 05/17/19 09:40 INR, PTT INR 1.19 (0.83-1.09) H 05/13/19 06:07 Problem List - Problems (1) Anemia Code(s): D64.9 - ANEMIA, UNSPECIFIED (2) ESRD (end stage renal disease) Code(s): N18.6 - END STAGE RENAL DISEASE (3) Femur fracture, right Code(s): S72.91XA - UNSP FRACTURE OF RIGHT FEMUR, INIT FOR CLOS FX (4) Hyponatremia Code(s): E87.1 - HYPO-OSMOLALITY AND HYPONATREMIA (5) Systolic CHF Code(s): I50.20 - UNSPECIFIED SYSTOLIC (CONGESTIVE) HEART FAILURE (6) Atrial fibrillation Code(s): I48.91 - UNSPECIFIED ATRIAL FIBRILLATION Qualifiers: (7) Diabetes Code(s): E11.9 - TYPE 2 DIABETES MELLITUS WITHOUT COMPLICATIONS (8) H/O heart artery stent Code(s): Z95.5 - PRESENCE OF CORONARY ANGIOPLASTY IMPLANT AND GRAFT Assessment/Plan DISCUSSED THE PATIENT'S RIGHT LOWER EXTREMITY FRACTURE WITH ORTHOPEDICS DR CAR. PATIENT HAS SEVERE BONE FRACTURES DUE TO BOTH WEAK MINERAL (OSTEOPOROSIS) AND WOUND HEALING POOR. THE ONLY OPTION WOULD BE TO REMOVE THE ENTIRE FEMUR AND PLACE A METAL KRISTEN A RIGHT LEG. AT 84 Y/O WITH HER MEDICAL HISTORY THIS IS NOT RECOMMENDED BECAUSE OF INCREASED RISK OF INFECTIONS, PROLONGED ANESTHESIA AND H/O CARDIAC DISEASE WITH ESRD-HD. RECOMMENDATION IS BED REST AND PAIN CONTROL UNTIL PATIENT CAN START PHYSICAL THERAPY AND BEAR WEIGHT TO RIGHT LEG. WILL START SOCIAL WORK FOR PLACEMENT TO A REHAB WITH HEMODIALYSIS. CHECK LABS IN AM
[2019-05-17] MEDS: HEPARIN NA (PORCINE) 5,000 UNITS/ML 1ML VIAL SQ SCH ×3 (10:38→21:38)
[2019-05-17] MEDS: INSULIN SLIDING SCALE (NOVOLOG) 1 VIAL SQ SCH ×4 (10:39→21:38)
[2019-05-17 10:47] LABS: BLOOD UREA NITROGEN 31.6 mg/dL (7-18); CREATININE 3.6 mg/dL (0.55-1.3); POTASSIUM 3.9 mmol/L (3.5-5.1)
[2019-05-17] MEDS: METOPROLOL TARTRATE 25 MG TABLET (FP) PO SCH ×2 (13:31→21:37)
[2019-05-17] MEDS: SILVER SULFADIAZINE 1% TOP CREAM 50 GM JAR TP SCH (13:31)
--- NOTE | 2019-05-17 16:39 | PN ---
Progress Note, Physician History of Present Illness: Pt seen and examined at bedside. SHe tolerated HD. She denies shortness of breath. - Current Medication List Current Medications: Active Medications Albuterol Sulfate (Ventolin 0.083% Nebulizer Soln -) 1 amp NEB Q4H PRN PRN Reason: SHORT OF BREATH/WHEEZING Last Admin: 05/17/19 00:27 Dose: 1 amp Docusate Sodium (Colace -) 300 mg PO HS [facility] Last Admin: 05/16/19 23:02 Dose: Not Given Heparin Sodium (Porcine) (Heparin -) 5,000 unit SQ TID [facility] Last Admin: 05/17/19 13:32 Dose: Not Given Sodium Chloride (Normal Saline -) 250 mls @ 3,000 mls/hr IV PRN PRN PRN Reason: Hypotension during Dialysis Stop: 05/18/19 08:55 Insulin Aspart (Novolog Vial Sliding Scale -) 1 vial SQ ACHS [facility]; Protocol Last Admin: 05/17/19 13:31 Dose: Not Given Levothyroxine Sodium (Synthroid -) 150 mcg PO DAILY@0700 [facility] Last Admin: 05/17/19 06:22 Dose: 150 mcg Metoprolol Tartrate (Lopressor -) 25 mg PO BID [facility] Last Admin: 05/17/19 13:31 Dose: 25 mg Silver Sulfadiazine (Silvadene -) 1 applic TP DAILY [facility] Last Admin: 05/17/19 13:31 Dose: 1 applic Sodium Hypochlorite (Dakin's Solution 0.25% (Half-Strength) -) 1 applic TP DAILY [facility] Last Admin: 05/16/19 12:39 Dose: 1 applic - Objective Vital Signs: Vital Signs Temperature 98.4 F 05/17/19 14:00 Pulse Rate 111 H 05/17/19 14:00 Respiratory Rate 05/17/19 14:00 Blood Pressure 119/64 05/17/19 14:00 O2 Sat by Pulse Oximetry (%) 98 05/16/19 21:00 Constitutional: Yes: Calm Eyes: Yes: Conjunctiva Clear HENT: Yes: Atraumatic Neck: Yes: Supple Cardiovascular: Yes: S1, S2 Respiratory: Yes: CTA Bilaterally Gastrointestinal: Yes: Normal Bowel Sounds, Soft Genitourinary: Yes: Incontinence Musculoskeletal: Yes: Muscle Weakness Edema: Yes Edema: LLE: 1+, RLE: 1+ Neurological: Yes: Oriented Labs: CBC, BMP 05/17/19 09:40 05/17/19 09:40 INR, PTT INR 1.19 (0.83-1.09) H 05/13/19 06:07 Assessment/Plan Current Medications Generic Name Dose Route Start Last Admin Trade Name Freq PRN Reason Stop Dose Admin Albuterol Sulfate 1 amp 05/12/19 15:58 05/17/19 00:27 Ventolin 0.083% Nebulizer Soln - NEB 1 amp Q4H PRN Administration SHORT OF BREATH/WHEEZING Docusate Sodium 300 mg 05/13/19 22:00 05/16/19 23:02 Colace - PO Not Given HS [facility] Heparin Sodium (Porcine) 5,000 unit 05/12/19 22:00 05/17/19 13:32 Heparin - SQ Not Given TID [facility] Sodium Chloride 250 mls @ 3,000 mls/hr 05/17/19 08:56 Normal Saline - IV 05/18/19 08:55 PRN PRN Hypotension during Dialysis Insulin Aspart 1 vial 05/12/19 16:30 05/17/19 13:31 Novolog Vial Sliding Scale - SQ Not Given ACHS [facility] Protocol Levothyroxine Sodium 150 mcg 05/16/19 06:19 05/17/19 06:22 Synthroid - PO 150 mcg DAILY@0700 [facility] Administration Metoprolol Tartrate 25 mg 05/12/19 22:00 05/17/19 13:31 Lopressor - PO 25 mg BID [facility] Administration Silver Sulfadiazine 1 applic 05/13/19 13:15 05/17/19 13:31 Silvadene - TP 1 applic DAILY [facility] Administration Sodium Hypochlorite 1 applic 05/13/19 13:15 05/16/19 12:39 Dakin's Solution 0.25% (Half-Strength) - TP 1 applic DAILY [facility] Administration Impression 1. ESRD on HD 2. Femur fracture 3. CHF 4. CAD 5. Hypertension Plan - HD today - renal diet - cont current meds - ortho follow up
[2019-05-17] MEDS: MORPHINE SULFATE 2 MG/ML VIAL IVPUSH PRN (18:03)
[2019-05-17] MEDS: SODIUM HYPOCHLORITE 0.25%- 473 ML BULK BOTTLE TP SCH (18:04)
[2019-05-17] MEDS: DOCUSATE SODIUM 100 MG CAPSULE (FP) PO SCH (21:38)
[2019-05-18] MEDS: HEPARIN NA (PORCINE) 5,000 UNITS/ML 1ML VIAL SQ SCH ×4 (06:14→22:29)
[2019-05-18] MEDS: LEVOTHYROXINE NA 75 MCG TABLET (FP) PO SCH (06:17)
[2019-05-18] MEDS: INSULIN SLIDING SCALE (NOVOLOG) 1 VIAL SQ SCH ×4 (06:17→22:26)
--- NOTE | 2019-05-18 08:05 | PN ---
Progress Note, Physician Chief Complaint: PT AWAKE, PAIN IS CONTROLLED HAD HD YESTERDAY DENIES CHEST PAIN OR SOB NO N/V C/O CONSTIPATION - Current Medication List Current Medications: Active Medications Albuterol Sulfate (Ventolin 0.083% Nebulizer Soln -) 1 amp NEB Q4H PRN PRN Reason: SHORT OF BREATH/WHEEZING Last Admin: 05/17/19 00:27 Dose: 1 amp Docusate Sodium (Colace -) 300 mg PO HS [facility] Last Admin: 05/17/19 21:38 Dose: 300 mg Heparin Sodium (Porcine) (Heparin -) 5,000 unit SQ TID [facility] Last Admin: 05/18/19 06:14 Dose: Not Given Sodium Chloride (Normal Saline -) 250 mls @ 3,000 mls/hr IV PRN PRN PRN Reason: Hypotension during Dialysis Stop: 05/18/19 08:55 Insulin Aspart (Novolog Vial Sliding Scale -) 1 vial SQ ACHS [facility]; Protocol Last Admin: 05/18/19 06:17 Dose: Not Given Levothyroxine Sodium (Synthroid -) 150 mcg PO DAILY@0700 [facility] Last Admin: 05/18/19 06:17 Dose: 150 mcg Metoprolol Tartrate (Lopressor -) 25 mg PO BID [facility] Last Admin: 05/17/19 21:37 Dose: 25 mg Morphine Sulfate (Morphine Sulfate) 2 mg IVPUSH Q6H PRN PRN Reason: PAIN SCALE 6-10 Last Admin: 05/17/19 18:03 Dose: 2 mg Silver Sulfadiazine (Silvadene -) 1 applic TP DAILY [facility] Last Admin: 05/17/19 13:31 Dose: 1 applic Sodium Hypochlorite (Dakin's Solution 0.25% (Half-Strength) -) 1 applic TP DAILY [facility] Last Admin: 05/17/19 18:04 Dose: 1 applic - Objective Vital Signs: Vital Signs Temperature 98 F 05/18/19 06:00 Pulse Rate 89 05/18/19 06:00 Respiratory Rate 20 05/18/19 06:00 Blood Pressure 112/67 05/18/19 06:00 O2 Sat by Pulse Oximetry (%) 98 05/17/19 21:00 Constitutional: Yes: Mild Distress Cardiovascular: Yes: Pulse Irregular Respiratory: Yes: On Nasal O2 Gastrointestinal: Yes: Soft Genitourinary: Yes: Other Musculoskeletal: Yes: Muscle Pain, Muscle Weakness Extremities: Yes: Deformity Edema: Yes Edema: LLE: 1+ Integumentary: Yes: Rash, Venous Stasis Changes Wound/Incision: Yes: Open to air Neurological: Yes: Pre-Existing Deficit ...Motor Strength: RLE Psychiatric: Yes: Other Labs: CBC, BMP 05/17/19 09:40 05/17/19 09:40 INR, PTT INR 1.19 (0.83-1.09) H 05/13/19 06:07 Problem List - Problems (1) Anemia Code(s): D64.9 - ANEMIA, UNSPECIFIED (2) ESRD (end stage renal disease) Code(s): N18.6 - END STAGE RENAL DISEASE (3) Femur fracture, right Code(s): S72.91XA - UNSP FRACTURE OF RIGHT FEMUR, INIT FOR CLOS FX (4) Hyponatremia Code(s): E87.1 - HYPO-OSMOLALITY AND HYPONATREMIA (5) Systolic CHF Code(s): I50.20 - UNSPECIFIED SYSTOLIC (CONGESTIVE) HEART FAILURE (6) Atrial fibrillation Code(s): I48.91 - UNSPECIFIED ATRIAL FIBRILLATION Qualifiers: (7) Diabetes Code(s): E11.9 - TYPE 2 DIABETES MELLITUS WITHOUT COMPLICATIONS (8) H/O heart artery stent Code(s): Z95.5 - PRESENCE OF CORONARY ANGIOPLASTY IMPLANT AND GRAFT Assessment/Plan I DISCUSSED WITH THE PATIENT THAT THE PLAN IS TO GET HER INTO A NURSING/REHAB THAT HAS HEMODIALYSIS IN THE FACILITY TO MINIMIZE TRANSFERS TO ANOTHER HD FACILITY. SHE DOES NOT WANT [facility] AND STILL WANTS TO TO SPEAK TO ORTHOPEDICS ABOUT SURGICAL OPTIONS. STOOL SOFTENERS DVT PROPHYLAXIS PAIN CONTROL HD PER RENAL ANEMIA STABLE
[2019-05-18] MEDS: SODIUM HYPOCHLORITE 0.25%- 473 ML BULK BOTTLE TP SCH (10:36)
[2019-05-18] MEDS: POLYETHYLENE GLYCOL 3350 119 GM BTL PO SCH (10:37)
[2019-05-18] MEDS: SILVER SULFADIAZINE 1% TOP CREAM 50 GM JAR TP SCH (10:37)
[2019-05-18] MEDS: METOPROLOL TARTRATE 25 MG TABLET (FP) PO SCH ×2 (10:37→22:26)
[2019-05-18] MEDS: MORPHINE SULFATE 2 MG/ML VIAL IVPUSH PRN (16:45)
--- NOTE | 2019-05-18 17:35 | PN ---
Progress Note, Physician History of Present Illness: Pt seen and examined at bedside. She is awake and alert. She is tolerating diet. She denies shortness of breath. - Current Medication List Current Medications: Active Medications Albuterol Sulfate (Ventolin 0.083% Nebulizer Soln -) 1 amp NEB Q4H PRN PRN Reason: SHORT OF BREATH/WHEEZING Last Admin: 05/17/19 00:27 Dose: 1 amp Docusate Sodium (Colace -) 300 mg PO HS [facility] Last Admin: 05/17/19 21:38 Dose: 300 mg Heparin Sodium (Porcine) (Heparin -) 5,000 unit SQ TID [facility] Last Admin: 05/18/19 15:19 Dose: Not Given Insulin Aspart (Novolog Vial Sliding Scale -) 1 vial SQ ACHS [facility]; Protocol Last Admin: 05/18/19 16:56 Dose: Not Given Levothyroxine Sodium (Synthroid -) 150 mcg PO DAILY@0700 [facility] Last Admin: 05/18/19 06:17 Dose: 150 mcg Metoprolol Tartrate (Lopressor -) 25 mg PO BID [facility] Last Admin: 05/18/19 10:37 Dose: 25 mg Morphine Sulfate (Morphine Sulfate) 2 mg IVPUSH Q6H PRN PRN Reason: PAIN SCALE 6-10 Last Admin: 05/18/19 16:45 Dose: 2 mg Polyethylene Glycol (Miralax (For Daily Use) -) 17 gm PO DAILY [facility] Last Admin: 05/18/19 10:37 Dose: Not Given Silver Sulfadiazine (Silvadene -) 1 applic TP DAILY [facility] Last Admin: 05/18/19 10:37 Dose: 1 applic Sodium Hypochlorite (Dakin's Solution 0.25% (Half-Strength) -) 1 applic TP DAILY [facility] Last Admin: 05/18/19 10:36 Dose: 1 applic - Objective Vital Signs: Vital Signs Temperature 97.4 F L 05/18/19 14:00 Pulse Rate 81 05/18/19 14:00 Respiratory Rate 18 05/18/19 14:00 Blood Pressure 105/56 L 05/18/19 14:00 O2 Sat by Pulse Oximetry (%) 98 05/17/19 21:00 Constitutional: Yes: Calm Eyes: Yes: Conjunctiva Clear HENT: Yes: Atraumatic Neck: Yes: Supple Cardiovascular: Yes: S1, S2 Respiratory: Yes: CTA Bilaterally, On Nasal O2 Gastrointestinal: Yes: Soft Genitourinary: Yes: Incontinence Musculoskeletal: Yes: Muscle Weakness Edema: Yes Edema: LLE: 1+, RLE: 1+ Neurological: Yes: Oriented Psychiatric: Yes: Oriented Labs: CBC, BMP 05/17/19 09:40 05/17/19 09:40 INR, PTT INR 1.19 (0.83-1.09) H 05/13/19 06:07 Assessment/Plan Current Medications Generic Name Dose Route Start Last Admin Trade Name Freq PRN Reason Stop Dose Admin Albuterol Sulfate 1 amp 05/12/19 15:58 05/17/19 00:27 Ventolin 0.083% Nebulizer Soln - NEB 1 amp Q4H PRN Administration SHORT OF BREATH/WHEEZING Docusate Sodium 300 mg 05/13/19 22:00 05/17/19 21:38 Colace - PO 300 mg HS [facility] Administration Heparin Sodium (Porcine) 5,000 unit 05/12/19 22:00 05/18/19 15:19 Heparin - SQ Not Given TID [facility] Insulin Aspart 1 vial 05/12/19 16:30 05/18/19 16:56 Novolog Vial Sliding Scale - SQ Not Given ACHS [facility] Protocol Levothyroxine Sodium 150 mcg 05/16/19 06:19 05/18/19 06:17 Synthroid - PO 150 mcg DAILY@0700 [facility] Administration Metoprolol Tartrate 25 mg 05/12/19 22:00 05/18/19 10:37 Lopressor - PO 25 mg BID [facility] Administration Morphine Sulfate 2 mg 05/17/19 17:57 05/18/19 16:45 Morphine Sulfate IVPUSH 2 mg Q6H PRN Administration PAIN SCALE 6-10 Polyethylene Glycol 17 gm 05/18/19 10:00 05/18/19 10:37 Miralax (For Daily Use) - PO Not Given DAILY [facility] Silver Sulfadiazine 1 applic 05/13/19 13:15 05/18/19 10:37 Silvadene - TP 1 applic DAILY [facility] Administration Sodium Hypochlorite 1 applic 05/13/19 13:15 05/18/19 10:36 Dakin's Solution 0.25% (Half-Strength) - TP 1 applic DAILY [facility] Administration Impression 1. ESRD on HD 2. Femur fracture 3. CHF 4. CAD 5. Hypertension Plan - next HD on Sunday - renal diet - cont current meds - ortho follow up
[2019-05-18] MEDS: DOCUSATE SODIUM 100 MG CAPSULE (FP) PO SCH (22:26)
[2019-05-19] MEDS: HEPARIN NA (PORCINE) 5,000 UNITS/ML 1ML VIAL SQ SCH ×3 (05:28→22:12)
[2019-05-19] MEDS: LEVOTHYROXINE NA 75 MCG TABLET (FP) PO SCH (06:17)
[2019-05-19] MEDS: INSULIN SLIDING SCALE (NOVOLOG) 1 VIAL SQ SCH ×4 (06:19→22:12)
--- NOTE | 2019-05-19 08:01 | PN ---
Progress Note, Physician History of Present Illness: 83 yo female pmh of ESRD on HD (TTS), CHF, Afib, CAD, HTN and R hip replacement by Dr. Tinoco presents to the ED 2 days after a fall in [facility]. Pt states she was seated on an air mattress, fell with right femur pain however was not assessed or x rayed until last night. Pt describes significant pain in the right femur with deformity, however, she is able to move her toes and has full sensation in her right distal ext. Pt denies recent illness, AC, fals in the past, CP, SOB, back pain, changes in bowel or bladder habits, abdominal pain PMH Atrial fibrillation Bare metal stent of ostial LCx April 01, 2015 Dr. Elizabeth CAD - mLAD 30% , oLCx 90%, RPDA 40% March 05, 2015 Dr. Elizabeth Diabetes mellitus, type II 1997 Dialysis 2010 End stage renal disease Hypertension Hypothyroidism Mildly reduced EF 48% February 2016 Moderate mean PG 23 mmHg February 2016 Severe GI bleed 2006 - Current Medication List Current Medications: Active Medications Albuterol Sulfate (Ventolin 0.083% Nebulizer Soln -) 1 amp NEB Q4H PRN PRN Reason: SHORT OF BREATH/WHEEZING Last Admin: 05/17/19 00:27 Dose: 1 amp Docusate Sodium (Colace -) 300 mg PO HS [facility] Last Admin: 05/18/19 22:26 Dose: 300 mg Heparin Sodium (Porcine) (Heparin -) 5,000 unit SQ TID [facility] Last Admin: 05/19/19 05:28 Dose: Not Given Insulin Aspart (Novolog Vial Sliding Scale -) 1 vial SQ ACHS [facility]; Protocol Last Admin: 05/19/19 06:19 Dose: Not Given Levothyroxine Sodium (Synthroid -) 150 mcg PO DAILY@0700 [facility] Last Admin: 05/19/19 06:17 Dose: 150 mcg Metoprolol Tartrate (Lopressor -) 25 mg PO BID [facility] Last Admin: 05/18/19 22:26 Dose: 25 mg Morphine Sulfate (Morphine Sulfate) 2 mg IVPUSH Q6H PRN PRN Reason: PAIN SCALE 6-10 Last Admin: 05/18/19 16:45 Dose: 2 mg Polyethylene Glycol (Miralax (For Daily Use) -) 17 gm PO DAILY [facility] Last Admin: 05/18/19 10:37 Dose: Not Given Silver Sulfadiazine (Silvadene -) 1 applic TP DAILY [facility] Last Admin: 05/18/19 10:37 Dose: 1 applic Sodium Hypochlorite (Dakin's Solution 0.25% (Half-Strength) -) 1 applic TP DAILY [facility] Last Admin: 05/18/19 10:36 Dose: 1 applic - Objective Vital Signs: Vital Signs Temperature 97.8 F 05/19/19 05:00 Pulse Rate 97 H 05/19/19 05:00 Respiratory Rate 18 05/18/19 22:00 Blood Pressure 115/66 05/19/19 05:00 O2 Sat by Pulse Oximetry (%) 98 05/18/19 21:00 Eyes: Yes: WNL, Conjunctiva Clear, EOM Intact HENT: Yes: WNL, Atraumatic, Normocephalic Neck: Yes: WNL, Supple, Trachea Midline Cardiovascular: Yes: WNL, Pulse Irregular Respiratory: Yes: WNL, Regular, CTA Bilaterally Gastrointestinal: Yes: WNL, Normal Bowel Sounds Genitourinary: Yes: WNL Musculoskeletal: Yes: WNL Edema: No Integumentary: Yes: WNL Neurological: Yes: WNL, Alert, Oriented ...Motor Strength: WNL Psychiatric: Yes: WNL Labs: CBC, BMP 05/17/19 09:40 05/17/19 09:40 INR, PTT INR 1.19 (0.83-1.09) H 05/13/19 06:07 Problem List - Problems (1) Femur fracture, right Code(s): S72.91XA - UNSP FRACTURE OF RIGHT FEMUR, INIT FOR CLOS FX (2) AV fistula occlusion Code(s): T82.898A - [facility] COMPLICATION OF VASCULAR PROSTH DEV/GRFT, INIT Qualifiers: Encounter type: initial encounter Qualified Code(s): T82.898A - Other specified complication of vascular prosthetic devices, implants and grafts, initial encounter (3) Anterior epistaxis Code(s): R04.0 - EPISTAXIS (4) Aortic stenosis Code(s): I35.0 - NONRHEUMATIC AORTIC (VALVE) STENOSIS Qualifiers: Cardiac valve disease etiology: nonrheumatic Qualified Code(s): I35.0 - Nonrheumatic aortic (valve) stenosis (5) Atrial fibrillation Code(s): I48.91 - UNSPECIFIED ATRIAL FIBRILLATION Qualifiers: (6) CAD (coronary artery disease) Code(s): I25.10 - ATHSCL HEART DISEASE OF [place] CORONARY ARTERY W/O ANG PCTRS (7) Cellulitis Code(s): L03.90 - CELLULITIS, UNSPECIFIED (8) Cellulitis and abscess of right lower extremity Code(s): L03.115 - CELLULITIS OF RIGHT LOWER LIMB; L02.415 - CUTANEOUS ABSCESS OF RIGHT LOWER LIMB (9) Congestive heart failure (CHF) Code(s): I50.9 - HEART FAILURE, UNSPECIFIED Qualifiers: Heart failure type: unspecified Heart failure chronicity: acute on chronic Qualified Code(s): I50.9 - Heart failure, unspecified (10) Diabetes Code(s): E11.9 - TYPE 2 DIABETES MELLITUS WITHOUT COMPLICATIONS (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, managed as type 1 Code(s): E10.9 - TYPE 1 DIABETES MELLITUS WITHOUT COMPLICATIONS (12) Diabetic acetonemia Code(s): E10.10 - TYPE 1 DIABETES MELLITUS WITH KETOACIDOSIS WITHOUT COMA (13) Diabetic foot ulcer Code(s): E11.621 - TYPE 2 DIABETES MELLITUS WITH FOOT ULCER; L97.509 - NON- PRESSURE CHRONIC ULCER OTH PRT UNSP FOOT W UNSP SEVERITY Qualifiers: Laterality: right (14) ESRD (end stage renal disease) on dialysis Code(s): N18.6 - END STAGE RENAL DISEASE; Z99.2 - DEPENDENCE ON RENAL DIALYSIS (15) Epistaxis Code(s): R04.0 - EPISTAXIS (16) Fever Code(s): R50.9 - FEVER, UNSPECIFIED (17) H/O heart artery stent Code(s): Z95.5 - PRESENCE OF CORONARY ANGIOPLASTY IMPLANT AND GRAFT (18) Hip pain, right Code(s): M25.551 - PAIN IN RIGHT HIP (19) Hyperlipidemia Code(s): E78.5 - HYPERLIPIDEMIA, UNSPECIFIED Qualifiers: Hyperlipidemia type: pure hypercholesterolemia Qualified Code(s): E78.00 - Pure hypercholesterolemia, unspecified; E78.0 - Pure hypercholesterolemia (20) Hyperparathyroidism Code(s): E21.3 - HYPERPARATHYROIDISM, UNSPECIFIED (21) 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 (22) Hypertension Code(s): I10 - ESSENTIAL (PRIMARY) HYPERTENSION Qualifiers: Hypertension type: essential hypertension Qualified Code(s): I10 - Essential (primary) hypertension (23) Hypotension Code(s): I95.9 - HYPOTENSION, UNSPECIFIED (24) Hypothyroid Code(s): E03.9 - HYPOTHYROIDISM, UNSPECIFIED Qualifiers: (25) Lower GI bleed Code(s): K92.2 - GASTROINTESTINAL HEMORRHAGE, UNSPECIFIED (26) Penicillin allergy Code(s): Z88.0 - ALLERGY STATUS TO PENICILLIN (27) Pneumonia Code(s): J18.9 - PNEUMONIA, UNSPECIFIED ORGANISM (28) Pressure ulcer of foot Code(s): L89.899 - PRESSURE ULCER OF OTHER SITE, UNSPECIFIED STAGE (29) Renal dialysis status Code(s): Z99.2 - DEPENDENCE ON RENAL DIALYSIS (30) Right ventricular dysfunction Code(s): I51.9 - HEART DISEASE, UNSPECIFIED (31) S/P hip replacement Code(s): Z96.649 - PRESENCE OF UNSPECIFIED ARTIFICIAL HIP JOINT (32) Sepsis Code(s): A41.9 - SEPSIS, UNSPECIFIED ORGANISM Qualifiers: Sepsis type: sepsis due to unspecified organism Qualified Code(s): A41.9 - Sepsis, unspecified organism (33) Severe protein-calorie malnutrition Code(s): E43 - UNSPECIFIED SEVERE PROTEIN-CALORIE MALNUTRITION (34) Stenosis of AV fistula Code(s): T82.858A - STENOSIS OF OTHER VASCULAR PROSTH DEV/GRFT, INIT Qualifiers: Encounter type: initial encounter Qualified Code(s): T82.858A - Stenosis of other vascular prosthetic devices, implants and grafts, initial encounter (35) Systolic and diastolic CHF w/reduced LV function, NYHA class 4 Code(s): I50.40 - UNSP COMBINED SYSTOLIC AND DIASTOLIC (CONGESTIVE) HRT FAIL (36) Tachycardia Code(s): R00.0 - TACHYCARDIA, UNSPECIFIED (37) Thrombocytopenia Code(s): D69.6 - THROMBOCYTOPENIA, UNSPECIFIED (38) Venous (peripheral) insufficiency Code(s): I87.2 - VENOUS INSUFFICIENCY (CHRONIC) (PERIPHERAL) Assessment/Plan Problems (1) Systolic CHF Assessment/Plan: On metoprolol ER for systolic CHF and AF. Consider ACEI (systolic CHF; DM), if BP allows. Code(s): I50.20 - UNSPECIFIED SYSTOLIC (CONGESTIVE) HEART FAILURE (2) Femur fracture, right Assessment/Plan: From a cardiac standpoint, there are no absolute contraindications for Ms. Yoon to undergo femur fracture repair. However, now noted that procedure cannot be done. Code(s): S72.91XA - UNSP FRACTURE OF RIGHT FEMUR, INIT FOR CLOS FX (3) Hyponatremia Assessment/Plan: Improving ; now 133 Code(s): E87.1 - HYPO-OSMOLALITY AND HYPONATREMIA (4) Aortic stenosis Assessment/Plan: mild-moderate , with mildly reduced LVEF, moderate-severely reduced RVEF, and severe pulmonary HTN on 01/2019 ECHO. Code(s): I35.0 - NONRHEUMATIC AORTIC (VALVE) STENOSIS Qualifiers: Cardiac valve disease etiology: nonrheumatic Qualified Code(s): I35.0 - Nonrheumatic aortic (valve) stenosis (5) Atrial fibrillation Assessment/Plan: on metoprolol for HR control (may change to ER for easier compliance). Systemic anticoagulation (e.g. DOAC) unless contraindications exist. Code(s): I48.91 - UNSPECIFIED ATRIAL FIBRILLATION Qualifiers: (6) CAD (coronary artery disease) Code(s): I25.10 - ATHSCL HEART DISEASE OF [place] CORONARY ARTERY W/O ANG PCTRS (7) Hypertension Code(s): I10 - ESSENTIAL (PRIMARY) HYPERTENSION Qualifiers: Hypertension type: essential hypertension Qualified Code(s): I10 - Essential (primary) hypertension (8) Severe protein-calorie malnutrition Code(s): E43 - UNSPECIFIED SEVERE PROTEIN-CALORIE MALNUTRITION (9) Anemia Code(s): D64.9 - ANEMIA, UNSPECIFIED (10) ESRD (end stage renal disease) Code(s): N18.6 - END STAGE RENAL DISEASE (11) Diabetes Code(s): E11.9 - TYPE 2 DIABETES MELLITUS WITHOUT COMPLICATIONS
[2019-05-19] MEDS: METOPROLOL TARTRATE 25 MG TABLET (FP) PO SCH ×2 (10:19→22:11)
[2019-05-19] MEDS: POLYETHYLENE GLYCOL 3350 119 GM BTL PO SCH (10:20)
[2019-05-19] MEDS: SODIUM HYPOCHLORITE 0.25%- 473 ML BULK BOTTLE TP SCH (10:20)
[2019-05-19] MEDS: SILVER SULFADIAZINE 1% TOP CREAM 50 GM JAR TP SCH (10:20)
--- NOTE | 2019-05-19 12:37 | PN ---
Progress Note (short form) - Note Progress Note: Renal follow up for ESRD on HD Seen and examined at the bedside continues to have moderate pain in LE last dialysis was Sunday no sob, cp, abd pain, fever or chills presently Vital Signs Temperature 97.8 F 05/19/19 05:00 Pulse Rate 97 H 05/19/19 05:00 Respiratory Rate 18 05/18/19 22:00 Blood Pressure 115/66 05/19/19 05:00 O2 Sat by Pulse Oximetry (%) 98 05/18/19 21:00 Intake & Output 05/16/19 05/17/19 05/18/19 05/19/19 23:59 23:59 23:59 23:59 Intake Total 0 1200 470 200 Output Total 2500 Balance 0 -1300 470 200 Weight 67.676 kg 67.585 kg 65.68 kg NAD awake and alert neck supple, no JVD RRR CTA soft NT/ND NO LE edema CBC, BMP 05/17/19 09:40 05/17/19 09:40 Current Medications Albuterol Sulfate (Ventolin 0.083% Nebulizer Soln -) 1 amp NEB Q4H PRN PRN Reason: SHORT OF BREATH/WHEEZING Last Admin: 05/17/19 00:27 Dose: 1 amp Docusate Sodium (Colace -) 300 mg PO HS [facility] Last Admin: 05/18/19 22:26 Dose: 300 mg Heparin Sodium (Porcine) (Heparin -) 5,000 unit SQ TID [facility] Last Admin: 05/19/19 05:28 Dose: Not Given Insulin Aspart (Novolog Vial Sliding Scale -) 1 vial SQ ACHS [facility]; Protocol Last Admin: 05/19/19 12:33 Dose: Not Given Levothyroxine Sodium (Synthroid -) 150 mcg PO DAILY@0700 [facility] Last Admin: 05/19/19 06:17 Dose: 150 mcg Metoprolol Tartrate (Lopressor -) 25 mg PO BID [facility] Last Admin: 05/19/19 10:19 Dose: 25 mg Morphine Sulfate (Morphine Sulfate) 2 mg IVPUSH Q6H PRN PRN Reason: PAIN SCALE 6-10 Last Admin: 05/18/19 16:45 Dose: 2 mg Polyethylene Glycol (Miralax (For Daily Use) -) 17 gm PO DAILY [facility] Last Admin: 05/19/19 10:20 Dose: Not Given Silver Sulfadiazine (Silvadene -) 1 applic TP DAILY [facility] Last Admin: 05/19/19 10:20 Dose: 1 applic Sodium Hypochlorite (Dakin's Solution 0.25% (Half-Strength) -) 1 applic TP DAILY [facility] Last Admin: 05/19/19 10:20 Dose: 1 applic 84 year old woman with history of ESRD on HD, CHF, CAD, hypertension who presented form CT s/p fall with femur fracture. 1. ESRD on HD 2. Femur fracture 3. Hx of HF, not acutely decompensated 4. CAD 5. Hypertension no acute need for dialysis today, next treatment planned for tomorrow. continue supportive care and pain control orthopedics re-eval in 1 month Renal diet, 1.2L fluid restriction Thank you Kenny Yeboah DO
[2019-05-19] MEDS ORDERED: SODIUM CHLORIDE 250 ML IV PRN (15:52)
--- NOTE | 2019-05-19 20:38 | PN ---
Progress Note, Physician Chief Complaint: ASLEEP/COMFORTABLE AWAITING 2ND OPINION FROM ORTHOPEDICS DR BOTELLO - Current Medication List Current Medications: Active Medications Albuterol Sulfate (Ventolin 0.083% Nebulizer Soln -) 1 amp NEB Q4H PRN PRN Reason: SHORT OF BREATH/WHEEZING Last Admin: 05/17/19 00:27 Dose: 1 amp Docusate Sodium (Colace -) 300 mg PO HS [facility] Last Admin: 05/18/19 22:26 Dose: 300 mg Epoetin Cesar (Procrit -) 10,000 unit IVPUSH ONCE ONE Stop: 05/20/19 06:01 Heparin Sodium (Porcine) (Heparin -) 5,000 unit SQ TID [facility] Last Admin: 05/19/19 14:35 Dose: Not Given Sodium Chloride (Normal Saline -) 250 mls @ 3,000 mls/hr IV PRN PRN PRN Reason: Hypotension during Dialysis Stop: 05/20/19 15:52 Insulin Aspart (Novolog Vial Sliding Scale -) [address] [facility]; Protocol Last Admin: 05/19/19 17:42 Dose: Not Given Levothyroxine Sodium (Synthroid -) 150 mcg PO DAILY@0700 [facility] Last Admin: 05/19/19 06:17 Dose: 150 mcg Metoprolol Tartrate (Lopressor -) 25 mg PO BID [facility] Last Admin: 05/19/19 10:19 Dose: 25 mg Morphine Sulfate (Morphine Sulfate) 2 mg IVPUSH Q6H PRN PRN Reason: PAIN SCALE 6-10 Last Admin: 05/18/19 16:45 Dose: 2 mg Polyethylene Glycol (Miralax (For Daily Use) -) 17 gm PO DAILY [facility] Last Admin: 05/19/19 10:20 Dose: Not Given Silver Sulfadiazine (Silvadene -) 1 applic TP DAILY [facility] Last Admin: 05/19/19 10:20 Dose: 1 applic Sodium Hypochlorite (Dakin's Solution 0.25% (Half-Strength) -) 1 applic TP DAILY [facility] Last Admin: 05/19/19 10:20 Dose: 1 applic - Objective Vital Signs: Vital Signs Temperature 98.3 F 05/19/19 17:40 Pulse Rate 83 05/19/19 17:40 Respiratory Rate 18 05/19/19 17:40 Blood Pressure 117/64 05/19/19 17:40 O2 Sat by Pulse Oximetry (%) 98 05/18/19 21:00 Constitutional: Yes: No Distress Cardiovascular: Yes: Pulse Irregular Respiratory: Yes: Regular Gastrointestinal: Yes: Soft Genitourinary: Yes: Incontinence Musculoskeletal: Yes: Muscle Weakness Extremities: Yes: Deformity Edema: Yes Integumentary: Yes: Erythema Wound/Incision: Yes: Open to air Neurological: Yes: Pre-Existing Deficit ...Motor Strength: RLE Psychiatric: Yes: WNL Labs: CBC, BMP 05/17/19 09:40 05/17/19 09:40 INR, PTT INR 1.19 (0.83-1.09) H 05/13/19 06:07 Problem List - Problems (1) Anemia Code(s): D64.9 - ANEMIA, UNSPECIFIED (2) ESRD (end stage renal disease) Code(s): N18.6 - END STAGE RENAL DISEASE (3) Femur fracture, right Code(s): S72.91XA - UNSP FRACTURE OF RIGHT FEMUR, INIT FOR CLOS FX (4) Hyponatremia Code(s): E87.1 - HYPO-OSMOLALITY AND HYPONATREMIA (5) Systolic CHF Code(s): I50.20 - UNSPECIFIED SYSTOLIC (CONGESTIVE) HEART FAILURE (6) Atrial fibrillation Code(s): I48.91 - UNSPECIFIED ATRIAL FIBRILLATION Qualifiers: (7) Diabetes Code(s): E11.9 - TYPE 2 DIABETES MELLITUS WITHOUT COMPLICATIONS (8) H/O heart artery stent Code(s): Z95.5 - PRESENCE OF CORONARY ANGIOPLASTY IMPLANT AND GRAFT Assessment/Plan I DISCUSSED WITH THE PATIENT THAT THE PLAN IS TO GET HER INTO A NURSING/REHAB THAT HAS HEMODIALYSIS IN THE FACILITY TO MINIMIZE TRANSFERS TO ANOTHER HD FACILITY. SHE DOES NOT WANT [facility] AND STILL WANTS TO TO SPEAK TO ORTHOPEDICS ABOUT SURGICAL OPTIONS. 2ND OPINION WITH ORTHOPEDICS PENDING STOOL SOFTENERS DVT PROPHYLAXIS PAIN CONTROL HD PER RENAL ANEMIA STABLE PROCRIT STARTED
[2019-05-19] MEDS: DOCUSATE SODIUM 100 MG CAPSULE (FP) PO SCH (22:12)
[2019-05-20] MEDS ORDERED: EPOETIN ALFA 10,000 UNIT/1 ML VIAL IVPUSH ONE (06:00)
[2019-05-20] MEDS: HEPARIN NA (PORCINE) 5,000 UNITS/ML 1ML VIAL SQ SCH ×3 (06:32→21:17)
[2019-05-20] MEDS: INSULIN SLIDING SCALE (NOVOLOG) 1 VIAL SQ SCH ×4 (06:32→21:18)
[2019-05-20] MEDS: LEVOTHYROXINE NA 75 MCG TABLET (FP) PO SCH (06:33)
--- NOTE | 2019-05-20 08:14 | PN ---
Progress Note, Physician Chief Complaint: AWAKE ALERT NAD AWAITING ORTHOPEDIC CONSULT 2ND OPINION NO FEVER OR CHILLS +CONSTIPATION REFUSED MIRALAX AND ENEMAS - Current Medication List Current Medications: Active Medications Albuterol Sulfate (Ventolin 0.083% Nebulizer Soln -) 1 amp NEB Q4H PRN PRN Reason: SHORT OF BREATH/WHEEZING Last Admin: 05/17/19 00:27 Dose: 1 amp Docusate Sodium (Colace -) 300 mg PO HS [facility] Last Admin: 05/19/19 22:12 Dose: Not Given Epoetin Cesar (Procrit -) 10,000 unit IVPUSH ONCE ONE Stop: 05/20/19 06:01 Heparin Sodium (Porcine) (Heparin -) 5,000 unit SQ TID [facility] Last Admin: 05/20/19 06:32 Dose: Not Given Sodium Chloride (Normal Saline -) 250 mls @ 3,000 mls/hr IV PRN PRN PRN Reason: Hypotension during Dialysis Stop: 05/20/19 15:52 Insulin Aspart (Novolog Vial Sliding Scale -) 1 vial SQ ACHS [facility]; Protocol Last Admin: 05/20/19 06:32 Dose: Not Given Levothyroxine Sodium (Synthroid -) 150 mcg PO DAILY@0700 [facility] Last Admin: 05/20/19 06:33 Dose: 150 mcg Metoprolol Tartrate (Lopressor -) 25 mg PO BID [facility] Last Admin: 05/19/19 22:11 Dose: 25 mg Morphine Sulfate (Morphine Sulfate) 2 mg IVPUSH Q6H PRN PRN Reason: PAIN SCALE 6-10 Last Admin: 05/18/19 16:45 Dose: 2 mg Polyethylene Glycol (Miralax (For Daily Use) -) 17 gm PO DAILY [facility] Last Admin: 05/19/19 10:20 Dose: Not Given Silver Sulfadiazine (Silvadene -) 1 applic TP DAILY [facility] Last Admin: 05/19/19 10:20 Dose: 1 applic Sodium Hypochlorite (Dakin's Solution 0.25% (Half-Strength) -) 1 applic TP DAILY [facility] Last Admin: 05/19/19 10:20 Dose: 1 applic - Objective Vital Signs: Vital Signs Temperature 97.9 F 05/20/19 06:00 Pulse Rate 89 05/20/19 06:00 Respiratory Rate 20 05/20/19 06:00 Blood Pressure 112/70 09/24/19 06:00 O2 Sat by Pulse Oximetry (%) 98 05/18/19 21:00 Constitutional: Yes: Mild Distress Cardiovascular: Yes: Pulse Irregular Respiratory: Yes: Diminished Gastrointestinal: Yes: Soft Genitourinary: Yes: Other Extremities: Yes: Deformity Edema: Yes Integumentary: Yes: Erythema Wound/Incision: Yes: Dressing Dry and Intact ...Motor Strength: RLE Labs: CBC, BMP 05/17/19 09:40 05/17/19 09:40 INR, PTT INR 1.19 (0.83-1.09) H 05/13/19 06:07 Problem List - Problems (1) Anemia Code(s): D64.9 - ANEMIA, UNSPECIFIED (2) ESRD (end stage renal disease) Code(s): N18.6 - END STAGE RENAL DISEASE (3) Femur fracture, right Code(s): S72.91XA - UNSP FRACTURE OF RIGHT FEMUR, INIT FOR CLOS FX (4) Hyponatremia Code(s): E87.1 - HYPO-OSMOLALITY AND HYPONATREMIA (5) Systolic CHF Code(s): I50.20 - UNSPECIFIED SYSTOLIC (CONGESTIVE) HEART FAILURE (6) Atrial fibrillation Code(s): I48.91 - UNSPECIFIED ATRIAL FIBRILLATION Qualifiers: (7) Diabetes Code(s): E11.9 - TYPE 2 DIABETES MELLITUS WITHOUT COMPLICATIONS (8) H/O heart artery stent Code(s): Z95.5 - PRESENCE OF CORONARY ANGIOPLASTY IMPLANT AND GRAFT Assessment/Plan I DISCUSSED WITH THE PATIENT THAT THE PLAN IS TO GET HER INTO A NURSING/REHAB THAT HAS HEMODIALYSIS IN THE FACILITY TO MINIMIZE TRANSFERS TO ANOTHER HD FACILITY. SHE DOES NOT WANT [facility] AND STILL WANTS TO TO SPEAK TO ORTHOPEDICS ABOUT SURGICAL OPTIONS. 2ND OPINION WITH ORTHOPEDICS PENDING STOOL SOFTENERS DVT PROPHYLAXIS PAIN CONTROL HD PER RENAL ANEMIA STABLE PROCRIT STARTED
--- NOTE | 2019-05-20 09:52 | PN ---
Progress Note (short form) - Note Progress Note: Consult seen. Note will be dictated. Consider consultation with at [facility] for megaprosthesis. No need for intervention at this time.
[2019-05-20] MEDS: SODIUM HYPOCHLORITE 0.25%- 473 ML BULK BOTTLE TP SCH (10:25)
[2019-05-20] MEDS: METOPROLOL TARTRATE 25 MG TABLET (FP) PO SCH ×3 (10:26→21:15)
[2019-05-20] MEDS: SILVER SULFADIAZINE 1% TOP CREAM 50 GM JAR TP SCH (10:26)
[2019-05-20] MEDS: POLYETHYLENE GLYCOL 3350 119 GM BTL PO SCH (10:27)
[2019-05-20 12:34] LABS: HEMATOCRIT 30.8 % (32.4-45.2); HEMOGLOBIN 9.7 GM/dL (10.7-15.3); MCH 34.4 pg (25.7-33.7); MCHC 31.4 g/dl (32.0-36.0); MEAN CELL VOLUME 109.5 fl (80-96); MEAN PLT VOLUME 8.4 fl (7.5-11.1); PLATELET COUNT 134 K/MM3 (134-434); RBC 2.81 M/mm3 (3.60-5.2); RDW 15.9 % (11.6-15.6); WHITE BLOOD COUNT 8.7 K/mm3 (4.0-10.0)
[2019-05-20 12:55] LABS: BLOOD UREA NITROGEN 39.6 mg/dL (7-18); CREATININE 4.6 mg/dL (0.55-1.3); PHOSPHOROUS 3.2 mg/dL (2.5-4.9); POTASSIUM 4.1 mmol/L (3.5-5.1)
--- NOTE | 2019-05-20 15:30 | PN ---
Progress Note (short form) - Note Progress Note: Renal follow up for ESRD on HD Seen and examined during dialysis. awake and alert no acute complaints BP stable, access with good flow, UF goal 2.5L pain controlled on current medications Vital Signs Temperature 97.6 F 05/20/19 14:40 Pulse Rate 104 H 05/20/19 14:40 Respiratory Rate 18 05/20/19 14:40 Blood Pressure 132/74 05/20/19 14:40 O2 Sat by Pulse Oximetry (%) 98 05/18/19 21:00 Intake & Output 05/17/19 05/18/19 05/19/19 05/20/19 23:59 23:59 23:59 23:59 Intake Total 1200 470 440 700 Output Total 2500 2500 Balance -1300 470 440 -1800 Weight 67.676 kg 67.585 kg 65.68 kg 65.998 kg NAD awake and alert neck supple, no JVD RRR CTA soft NT/ND NO LE edema CBC, BMP 05/20/19 11:15 05/20/19 11:15 Current Medications Albuterol Sulfate (Ventolin 0.083% Nebulizer Soln -) 1 amp NEB Q4H PRN PRN Reason: SHORT OF BREATH/WHEEZING Last Admin: 05/17/19 00:27 Dose: 1 amp Docusate Sodium (Colace -) 300 mg PO HS [facility] Last Admin: 05/19/19 22:12 Dose: Not Given Heparin Sodium (Porcine) (Heparin -) 5,000 unit SQ TID [facility] Last Admin: 05/20/19 13:56 Dose: Not Given Sodium Chloride (Normal Saline -) 250 mls @ 3,000 mls/hr IV PRN PRN PRN Reason: Hypotension during Dialysis Stop: 05/20/19 15:52 Insulin Aspart (Novolog Vial Sliding Scale -) 1 vial SQ [facility]; Protocol Last Admin: 05/20/19 12:28 Dose: Not Given Levothyroxine Sodium (Synthroid -) 150 mcg PO DAILY@0700 [facility] Last Admin: 05/20/19 06:33 Dose: 150 mcg Metoprolol Tartrate (Lopressor -) 25 mg PO BID [facility] Last Admin: 05/20/19 10:29 Dose: Not Given Morphine Sulfate (Morphine Sulfate) 2 mg IVPUSH Q6H PRN PRN Reason: PAIN SCALE 6-10 Last Admin: 05/18/19 16:45 Dose: 2 mg Polyethylene Glycol (Miralax (For Daily Use) -) 17 gm PO DAILY [facility] Last Admin: 05/20/19 10:27 Dose: Not Given Silver Sulfadiazine (Silvadene -) 1 applic TP DAILY [facility] Last Admin: 05/20/19 10:26 Dose: 1 applic Sodium Hypochlorite (Dakin's Solution 0.25% (Half-Strength) -) 1 applic TP DAILY [facility] Last Admin: 05/20/19 10:25 Dose: 1 applic 84 year old woman with history of ESRD on HD, CHF, CAD, hypertension who presented form [place] s/p fall with femur fracture. 1. ESRD on HD 2. Femur fracture 3. Hx of HF, not acutely decompensated 4. CAD 5. Hypertension tolerating dialysis with UF goal of 2.5L continue supportive care and pain control orthopedics re-eval in 1 month Renal diet, 1.2L fluid restriction Thank you Kenny Yeboah DO
[2019-05-20] MEDS: MORPHINE SULFATE 2 MG/ML VIAL IVPUSH PRN (16:39)
--- NOTE | 2019-05-20 18:33 | CONS ---
DATE OF CONSULTATION: 05/20/2019 TIME OF CONSULTATION: 8:50 a.m. CHIEF COMPLAINT: Right femur and leg pain. HISTORY OF PRESENT ILLNESS: This is an 84-year-old female who had undergone a fracture treatment with a cephalomedullary nail. She subsequently had failure of the construct, and then underwent a modular total hip replacement to revive the failed open reduction, internal fixation. She subsequently went on to have fracture about her hip prosthesis and has been nonambulatory since then. The patient reinjured herself Sunday evening and now is having increased pain. She was previously seen by Dr. Benson who recommended conservative care. The family had requested and patient requested a second orthopedic opinion, so I was called. At the time of the exam , the patient notes mild to moderate discomfort about the right thigh. She notes no numbness, tingling. She has no other areas of pain at this time. She is seen lying in hospital bed. PAST MEDICAL HISTORY: Significant for end-stage renal disease, CHF, atrial fibrillation, coronary artery disease, hypertension. Diabetes. SOCIAL HISTORY: Denies any alcohol or tobacco use. ALLERGIES: Include ERYTHROMYCIN, PENICILLIN, VERAPAMIL, ASPIRIN, PEPPERS, and AQUACEL DRESSING. MEDICATION: Reviewed as in chart. PHYSICAL EXAMINATION: General: This is a well appearing female in no acute distress. She is alert and oriented x3. She is afebrile, and vital signs are stable. Extremities: Examination of the right lower extremity demonstrates a marked deformity of the right thigh. She had tenderness over the distal third thigh. The leg is nontender, the ankle is nontender. Distally sensation is grossly intact to light touch. She has 1+ DP pulse, intact EHL, FHL, TA, gastroc and soleus. Radiography is reviewed. There is a right total hip with long stem component. 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 There is a trochanteric claw which is in the soft tissue. There is extensive callus about the distal aspect of the stem and proximal to the distal segment of the femur. There is an oblique fracture to the distal femoral fragments. ASSESSMENT: Right femur status post failed intramedullary nail, status post failed total hip, now with extensive osteolysis and acute fracture. PLAN: I discussed today's findings with the patient. I advised she has a very complex injury to her femur. At this point, there is minimal bone stock left for any type of repair to be performed. Her surgical options are somewhat limited. We did discuss the option of a megaprosthesis, removing the entire proximal portions of the femur and perhaps even the total femur to perform replacement. While this is a theoretically possible procedure, this procedure is quite involved, and has a relatively high rate of complications. Given her baseline medical status, complications of surgery are going to be even higher risk. The chance of her ambulating again at this point given her limited function is very low. Therefore, the benefits of such a procedure are quite limited, and the risks are quite high. I do not believe that it is the optimal choice for her. That being said, I am not personally skilled in performing these procedures. A consultation with Dr. Boone who is a tumor surgeon at [facility] would be much more informative, as he has some experience with this type of work. As far as the acute management of her femur fracture, bedrest and out of bed to chair are reasonable activities and I do not believe any bracing would be particularly effective given the deformity present. In fact, bracing could put her skin at risk for breakdown. I addressed all the patient's questions and concerns. She voiced understanding and will consider consultation with Dr. Boone. CARSON BOTELLO M.D. [id number] MTDD
[2019-05-20] MEDS: DOCUSATE SODIUM 100 MG CAPSULE (FP) PO SCH (21:16)
[2019-05-21] MEDS: ALBUTEROL SO4 0.083% IH SOL 2.5 MG/3 ML VIAL.NEB. NEB PRN ×2 (03:29→18:30)
[2019-05-21] MEDS: HEPARIN NA (PORCINE) 5,000 UNITS/ML 1ML VIAL SQ SCH ×3 (05:47→21:18)
[2019-05-21] MEDS: LEVOTHYROXINE NA 75 MCG TABLET (FP) PO SCH (06:35)
[2019-05-21] MEDS: INSULIN SLIDING SCALE (NOVOLOG) 1 VIAL SQ SCH ×4 (06:37→21:17)
--- NOTE | 2019-05-21 09:26 | PN ---
Progress Note, Physician Chief Complaint: AWAKE ALERT EXPLAINED TO MS. POWERS SHE IS NOT A GOOD CANDIDATE FOR RIGHT LOWER EXTREMITY PROSTHESIS SURGERY. THE RISK OUTWEIGHS THE BENEFIT WHEN CALCULATING ALL OF HER CO-MORBIDITIES. - Current Medication List Current Medications: Active Medications Albuterol Sulfate (Ventolin 0.083% Nebulizer Soln -) 1 amp NEB Q4H PRN PRN Reason: SHORT OF BREATH/WHEEZING Last Admin: 05/21/19 03:29 Dose: 1 amp Docusate Sodium (Colace -) 300 mg PO HS [facility] Last Admin: 05/20/19 21:16 Dose: Not Given Heparin Sodium (Porcine) (Heparin -) 5,000 unit SQ TID [facility] Last Admin: 05/21/19 05:47 Dose: Not Given Sodium Chloride (Normal Saline -) 250 mls @ 3,000 mls/hr IV PRN PRN PRN Reason: Hypotension during Dialysis Stop: 05/20/19 15:52 Insulin Aspart (Novolog Vial Sliding Scale -) 1 vial SQ [facility]; Protocol Last Admin: 05/21/19 06:37 Dose: Not Given Levothyroxine Sodium (Synthroid -) 150 mcg PO DAILY@0700 [facility] Last Admin: 05/21/19 06:35 Dose: 150 mcg Metoprolol Tartrate (Lopressor -) 25 mg PO BID [facility] Last Admin: 05/20/19 21:15 Dose: 25 mg Morphine Sulfate (Morphine Sulfate) 2 mg IVPUSH Q6H PRN PRN Reason: PAIN SCALE 6-10 Last Admin: 05/20/19 16:39 Dose: 2 mg Polyethylene Glycol (Miralax (For Daily Use) -) 17 gm PO DAILY [facility] Last Admin: 05/20/19 10:27 Dose: Not Given Silver Sulfadiazine (Silvadene -) 1 applic TP DAILY [facility] Last Admin: 05/20/19 10:26 Dose: 1 applic Sodium Hypochlorite (Dakin's Solution 0.25% (Half-Strength) -) 1 applic TP DAILY [facility] Last Admin: 05/20/19 10:25 Dose: 1 applic - Objective Vital Signs: Vital Signs Temperature 98.1 F 05/21/19 06:00 Pulse Rate 91 H 05/21/19 06:00 Respiratory Rate 20 05/21/19 06:00 Blood Pressure 110/50 L 05/21/19 06:00 O2 Sat by Pulse Oximetry (%) 98 05/18/19 21:00 Constitutional: Yes: No Distress Cardiovascular: Yes: Pulse Irregular Respiratory: Yes: On Nasal O2 Gastrointestinal: Yes: Soft Genitourinary: Yes: Other Musculoskeletal: Yes: Muscle Weakness Extremities: Yes: Deformity Edema: Yes Integumentary: Yes: Pressure Ulcer, Rash, Venous Stasis Changes Wound/Incision: Yes: Dressing Dry and Intact Neurological: Yes: Pre-Existing Deficit, Weakness ...Motor Strength: RLE Labs: CBC, BMP 05/20/19 11:15 05/20/19 11:15 INR, PTT INR 1.19 (0.83-1.09) H 05/13/19 06:07 Problem List - Problems (1) Anemia Code(s): D64.9 - ANEMIA, UNSPECIFIED (2) ESRD (end stage renal disease) Code(s): N18.6 - END STAGE RENAL DISEASE (3) Femur fracture, right Code(s): S72.91XA - UNSP FRACTURE OF RIGHT FEMUR, INIT FOR CLOS FX (4) Hyponatremia Code(s): E87.1 - HYPO-OSMOLALITY AND HYPONATREMIA (5) Systolic CHF Code(s): I50.20 - UNSPECIFIED SYSTOLIC (CONGESTIVE) HEART FAILURE (6) Atrial fibrillation Code(s): I48.91 - UNSPECIFIED ATRIAL FIBRILLATION Qualifiers: (7) Diabetes Code(s): E11.9 - TYPE 2 DIABETES MELLITUS WITHOUT COMPLICATIONS (8) H/O heart artery stent Code(s): Z95.5 - PRESENCE OF CORONARY ANGIOPLASTY IMPLANT AND GRAFT Assessment/Plan DISCHARGE TO SNF AWAIT PLAN FROM [facility] PER RENAL PAIN CONTROL RIGHT LEG SPLINT DVT PROPHYLAXIS STOOL SOFTENERS
--- NOTE | 2019-05-21 10:54 | PN ---
Progress Note, Physician History of Present Illness: 83 yo female pmh of ESRD on HD (TTS), CHF, Afib, CAD, HTN and R hip replacement by Dr. Tinoco presents to the ED 2 days after a fall in [facility]. Pt states she was seated on an air mattress, fell with right femur pain however was not assessed or x rayed until last night. Pt describes significant pain in the right femur with deformity, however, she is able to move her toes and has full sensation in her right distal ext. Pt denies recent illness, AC, fals in the past, CP, SOB, back pain, changes in bowel or bladder habits, abdominal pain PMH Atrial fibrillation Bare metal stent of ostial LCx April 01, 2015 Dr. Elizabeth CAD - mLAD 30% , oLCx 90%, RPDA 40% March 05, 2015 Dr. Elizabeth Diabetes mellitus, type II 1997 Dialysis 2010 End stage renal disease Hypertension Hypothyroidism Mildly reduced EF 48% February 2016 Moderate mean PG 23 mmHg February 2016 Severe GI bleed 2006 - Current Medication List Current Medications: Active Medications Albuterol Sulfate (Ventolin 0.083% Nebulizer Soln -) 1 amp NEB Q4H PRN PRN Reason: SHORT OF BREATH/WHEEZING Last Admin: 05/21/19 03:29 Dose: 1 amp Docusate Sodium (Colace -) 300 mg PO HS [facility] Last Admin: 05/20/19 21:16 Dose: Not Given Heparin Sodium (Porcine) (Heparin -) 5,000 unit SQ TID [facility] Last Admin: 05/21/19 05:47 Dose: Not Given Sodium Chloride (Normal Saline -) 250 mls @ 3,000 mls/hr IV PRN PRN PRN Reason: Hypotension during Dialysis Stop: 05/20/19 15:52 Insulin Aspart (Novolog Vial Sliding Scale -) 1 vial SQ ACHS [facility]; Protocol Last Admin: 05/21/19 06:37 Dose: Not Given Levothyroxine Sodium (Synthroid -) 150 mcg PO DAILY@0700 [facility] Last Admin: 05/21/19 06:35 Dose: 150 mcg Metoprolol Tartrate (Lopressor -) 25 mg PO BID [facility] Last Admin: 05/20/19 21:15 Dose: 25 mg Morphine Sulfate (Morphine Sulfate) 2 mg IVPUSH Q6H PRN PRN Reason: PAIN SCALE 6-10 Last Admin: 05/20/19 16:39 Dose: 2 mg Polyethylene Glycol (Miralax (For Daily Use) -) 17 gm PO DAILY [facility] Last Admin: 05/20/19 10:27 Dose: Not Given Silver Sulfadiazine (Silvadene -) 1 applic TP DAILY [facility] Last Admin: 05/20/19 10:26 Dose: 1 applic Sodium Hypochlorite (Dakin's Solution 0.25% (Half-Strength) -) 1 applic TP DAILY [facility] Last Admin: 05/20/19 10:25 Dose: 1 applic - Objective Vital Signs: Vital Signs Temperature 98.1 F 05/21/19 06:00 Pulse Rate 91 H 05/21/19 06:00 Respiratory Rate 20 05/21/19 06:00 Blood Pressure 110/50 L 05/21/19 06:00 O2 Sat by Pulse Oximetry (%) 98 05/18/19 21:00 Eyes: Yes: WNL, Conjunctiva Clear, EOM Intact HENT: Yes: WNL, Atraumatic, Normocephalic Neck: Yes: WNL, Supple, Trachea Midline Cardiovascular: Yes: WNL, Regular Rate and Rhythm Respiratory: Yes: WNL, Regular, CTA Bilaterally Gastrointestinal: Yes: WNL, Normal Bowel Sounds Genitourinary: Yes: WNL Musculoskeletal: Yes: WNL Extremities: Yes: WNL Edema: No Integumentary: Yes: WNL Neurological: Yes: WNL, Alert, Oriented ...Motor Strength: WNL Psychiatric: Yes: WNL Labs: CBC, BMP 05/20/19 11:15 05/20/19 11:15 INR, PTT INR 1.19 (0.83-1.09) H 05/13/19 06:07 Problem List - Problems (1) Femur fracture, right Code(s): S72.91XA - UNSP FRACTURE OF RIGHT FEMUR, INIT FOR CLOS FX (2) AV fistula occlusion Code(s): T82.898A - [facility] COMPLICATION OF VASCULAR PROSTH DEV/GRFT, INIT Qualifiers: Encounter type: initial encounter Qualified Code(s): T82.898A - Other specified complication of vascular prosthetic devices, implants and grafts, initial encounter (3) Anterior epistaxis Code(s): R04.0 - EPISTAXIS (4) Aortic stenosis Code(s): I35.0 - NONRHEUMATIC AORTIC (VALVE) STENOSIS Qualifiers: Cardiac valve disease etiology: nonrheumatic Qualified Code(s): I35.0 - Nonrheumatic aortic (valve) stenosis (5) Atrial fibrillation Code(s): I48.91 - UNSPECIFIED ATRIAL FIBRILLATION Qualifiers: (6) CAD (coronary artery disease) Code(s): I25.10 - ATHSCL HEART DISEASE OF [place] CORONARY ARTERY W/O ANG PCTRS (7) Cellulitis Code(s): L03.90 - CELLULITIS, UNSPECIFIED (8) Cellulitis and abscess of right lower extremity Code(s): L03.115 - CELLULITIS OF RIGHT LOWER LIMB; L02.415 - CUTANEOUS ABSCESS OF RIGHT LOWER LIMB (9) Congestive heart failure (CHF) Code(s): I50.9 - HEART FAILURE, UNSPECIFIED Qualifiers: Heart failure type: unspecified Heart failure chronicity: acute on chronic Qualified Code(s): I50.9 - Heart failure, unspecified (10) Diabetes Code(s): E11.9 - TYPE 2 DIABETES MELLITUS WITHOUT COMPLICATIONS (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, managed as type 1 Code(s): E10.9 - TYPE 1 DIABETES MELLITUS WITHOUT COMPLICATIONS (12) Diabetic acetonemia Code(s): E10.10 - TYPE 1 DIABETES MELLITUS WITH KETOACIDOSIS WITHOUT COMA (13) Diabetic foot ulcer Code(s): E11.621 - TYPE 2 DIABETES MELLITUS WITH FOOT ULCER; L97.509 - NON- PRESSURE CHRONIC ULCER OTH PRT UNSP FOOT W UNSP SEVERITY Qualifiers: Laterality: right (14) ESRD (end stage renal disease) on dialysis Code(s): N18.6 - END STAGE RENAL DISEASE; Z99.2 - DEPENDENCE ON RENAL DIALYSIS (15) Epistaxis Code(s): R04.0 - EPISTAXIS (16) Fever Code(s): R50.9 - FEVER, UNSPECIFIED (17) H/O heart artery stent Code(s): Z95.5 - PRESENCE OF CORONARY ANGIOPLASTY IMPLANT AND GRAFT (18) Hip pain, right Code(s): M25.551 - PAIN IN RIGHT HIP (19) Hyperlipidemia Code(s): E78.5 - HYPERLIPIDEMIA, UNSPECIFIED Qualifiers: Hyperlipidemia type: pure hypercholesterolemia Qualified Code(s): E78.00 - Pure hypercholesterolemia, unspecified; E78.0 - Pure hypercholesterolemia (20) Hyperparathyroidism Code(s): E21.3 - HYPERPARATHYROIDISM, UNSPECIFIED (21) 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 (22) Hypertension Code(s): I10 - ESSENTIAL (PRIMARY) HYPERTENSION Qualifiers: Hypertension type: essential hypertension Qualified Code(s): I10 - Essential (primary) hypertension (23) Hypotension Code(s): I95.9 - HYPOTENSION, UNSPECIFIED (24) Hypothyroid Code(s): E03.9 - HYPOTHYROIDISM, UNSPECIFIED Qualifiers: (25) Lower GI bleed Code(s): K92.2 - GASTROINTESTINAL HEMORRHAGE, UNSPECIFIED (26) Penicillin allergy Code(s): Z88.0 - ALLERGY STATUS TO PENICILLIN (27) Pneumonia Code(s): J18.9 - PNEUMONIA, UNSPECIFIED ORGANISM (28) Pressure ulcer of foot Code(s): L89.899 - PRESSURE ULCER OF OTHER SITE, UNSPECIFIED STAGE (29) Renal dialysis status Code(s): Z99.2 - DEPENDENCE ON RENAL DIALYSIS (30) Right ventricular dysfunction Code(s): I51.9 - HEART DISEASE, UNSPECIFIED (31) S/P hip replacement Code(s): Z96.649 - PRESENCE OF UNSPECIFIED ARTIFICIAL HIP JOINT (32) Sepsis Code(s): A41.9 - SEPSIS, UNSPECIFIED ORGANISM Qualifiers: Sepsis type: sepsis due to unspecified organism Qualified Code(s): A41.9 - Sepsis, unspecified organism (33) Severe protein-calorie malnutrition Code(s): E43 - UNSPECIFIED SEVERE PROTEIN-CALORIE MALNUTRITION (34) Stenosis of AV fistula Code(s): T82.858A - STENOSIS OF OTHER VASCULAR PROSTH DEV/GRFT, INIT Qualifiers: Encounter type: initial encounter Qualified Code(s): T82.858A - Stenosis of other vascular prosthetic devices, implants and grafts, initial encounter (35) Systolic and diastolic CHF w/reduced LV function, NYHA class 4 Code(s): I50.40 - UNSP COMBINED SYSTOLIC AND DIASTOLIC (CONGESTIVE) HRT FAIL (36) Tachycardia Code(s): R00.0 - TACHYCARDIA, UNSPECIFIED (37) Thrombocytopenia Code(s): D69.6 - THROMBOCYTOPENIA, UNSPECIFIED (38) Venous (peripheral) insufficiency Code(s): I87.2 - VENOUS INSUFFICIENCY (CHRONIC) (PERIPHERAL) Assessment/Plan Problems (1) Systolic CHF Assessment/Plan: On metoprolol ER for systolic CHF and AF. Consider ACEI (systolic CHF; DM), if BP allows. Code(s): I50.20 - UNSPECIFIED SYSTOLIC (CONGESTIVE) HEART FAILURE (2) Femur fracture, right Assessment/Plan: Conservative rx as per ortho Code(s): S72.91XA - UNSP FRACTURE OF RIGHT FEMUR, INIT FOR CLOS FX (3) Hyponatremia Assessment/Plan: Improving ; now 133 Code(s): E87.1 - HYPO-OSMOLALITY AND HYPONATREMIA (4) Aortic stenosis Assessment/Plan: mild-moderate , with mildly reduced LVEF, moderate-severely reduced RVEF, and severe pulmonary HTN on 01/2019 ECHO. Code(s): I35.0 - NONRHEUMATIC AORTIC (VALVE) STENOSIS Qualifiers: Cardiac valve disease etiology: nonrheumatic Qualified Code(s): I35.0 - Nonrheumatic aortic (valve) stenosis (5) Atrial fibrillation Assessment/Plan: on metoprolol for HR control (may change to ER for easier compliance). Systemic anticoagulation (e.g. DOAC) unless contraindications exist. Code(s): I48.91 - UNSPECIFIED ATRIAL FIBRILLATION Qualifiers: (6) CAD (coronary artery disease) Code(s): I25.10 - ATHSCL HEART DISEASE OF [place] CORONARY ARTERY W/O ANG PCTRS (7) Hypertension Code(s): I10 - ESSENTIAL (PRIMARY) HYPERTENSION Qualifiers: Hypertension type: essential hypertension Qualified Code(s): I10 - Essential (primary) hypertension (8) Severe protein-calorie malnutrition Code(s): E43 - UNSPECIFIED SEVERE PROTEIN-CALORIE MALNUTRITION (9) Anemia Code(s): D64.9 - ANEMIA, UNSPECIFIED (10) ESRD (end stage renal disease) Code(s): N18.6 - END STAGE RENAL DISEASE (11) Diabetes Code(s): E11.9 - TYPE 2 DIABETES MELLITUS WITHOUT COMPLICATIONS
[2019-05-21] MEDS: SODIUM HYPOCHLORITE 0.25%- 473 ML BULK BOTTLE TP SCH (10:58)
[2019-05-21] MEDS: SILVER SULFADIAZINE 1% TOP CREAM 50 GM JAR TP SCH (10:58)
[2019-05-21] MEDS: METOPROLOL TARTRATE 25 MG TABLET (FP) PO SCH ×2 (11:05→21:18)
[2019-05-21] MEDS: POLYETHYLENE GLYCOL 3350 119 GM BTL PO SCH (11:07)
--- NOTE | 2019-05-21 14:35 | PN ---
Progress Note (short form) - Note Progress Note: Renal follow up for ESRD on HD Seen and examined at the bedside. feels well. Denies any sob, cp, abd pain pain in leg is moderated with pain medications Vital Signs Temperature 98.8 F 05/21/19 10:00 Pulse Rate 100 H 05/21/19 10:00 Respiratory Rate 18 05/21/19 10:00 Blood Pressure 126/68 05/21/19 10:00 O2 Sat by Pulse Oximetry (%) 98 05/18/19 21:00 Intake & Output 05/18/19 05/19/19 05/20/19 05/21/19 23:59 23:59 23:59 23:59 Intake Total 470 440 900 200 Output Total 2500 Balance 470 440 -1600 200 Weight 67.585 kg 65.68 kg 65.998 kg 65.998 kg NAD awake and alert neck supple, no JVD RRR CTA soft NT/ND NO LE edema CBC, BMP 05/20/19 11:15 05/20/19 11:15 Current Medications Albuterol Sulfate (Ventolin 0.083% Nebulizer Soln -) 1 amp NEB Q4H PRN PRN Reason: SHORT OF BREATH/WHEEZING Last Admin: 05/21/19 03:29 Dose: 1 amp Docusate Sodium (Colace -) 300 mg PO HS [facility] Last Admin: 05/20/19 21:16 Dose: Not Given Heparin Sodium (Porcine) (Heparin -) 5,000 unit SQ TID [facility] Last Admin: 05/21/19 13:43 Dose: Not Given Sodium Chloride (Normal Saline -) 250 mls @ 3,000 mls/hr IV PRN PRN PRN Reason: Hypotension during Dialysis Stop: 05/20/19 15:52 Insulin Aspart (Novolog Vial Sliding Scale -) 1 vial SQ ACHS [facility]; Protocol Last Admin: 05/21/19 13:23 Dose: Not Given Levothyroxine Sodium (Synthroid -) 150 mcg PO DAILY@0700 [facility] Last Admin: 05/21/19 06:35 Dose: 150 mcg Metoprolol Tartrate (Lopressor -) 25 mg PO BID [facility] Last Admin: 05/21/19 11:05 Dose: 25 mg Morphine Sulfate (Morphine Sulfate) 2 mg IVPUSH Q6H PRN PRN Reason: PAIN SCALE 6-10 Last Admin: 05/20/19 16:39 Dose: 2 mg Polyethylene Glycol (Miralax (For Daily Use) -) 17 gm PO DAILY [facility] Last Admin: 05/21/19 11:07 Dose: Not Given Silver Sulfadiazine (Silvadene -) 1 applic TP DAILY [facility] Last Admin: 05/21/19 10:58 Dose: 1 applic Sodium Hypochlorite (Dakin's Solution 0.25% (Half-Strength) -) 1 applic TP DAILY [facility] Last Admin: 05/21/19 10:58 Dose: 1 applic 84 year old woman with history of ESRD on HD, CHF, CAD, hypertension who presented form [place] s/p fall with femur fracture. 1. ESRD on HD 2. Femur fracture 3. Hx of HF, not acutely decompensated 4. CAD 5. Hypertension no acute need for dialysis today, next dialysis planned for tomorrow. continue supportive care and pain control orthopedics re-eval in 1 month Renal diet, 1.2L fluid restriction Thank you Kenny Yeboah DO
[2019-05-21] MEDS: DOCUSATE SODIUM 100 MG CAPSULE (FP) PO SCH (21:15)
[2019-05-21] MEDS: MORPHINE SULFATE 2 MG/ML VIAL IVPUSH PRN (21:18)
[2019-05-22] MEDS: HEPARIN NA (PORCINE) 5,000 UNITS/ML 1ML VIAL SQ SCH ×3 (06:29→22:18)
[2019-05-22] MEDS: LEVOTHYROXINE NA 75 MCG TABLET (FP) PO SCH (06:35)
[2019-05-22] MEDS: INSULIN SLIDING SCALE (NOVOLOG) 1 VIAL SQ SCH ×4 (06:35→22:37)
[2019-05-22] MEDS: MORPHINE SULFATE 2 MG/ML VIAL IVPUSH PRN ×2 (08:42→15:10)
[2019-05-22 09:04] LABS: HEMATOCRIT 29.8 % (32.4-45.2); HEMOGLOBIN 9.2 GM/dL (10.7-15.3); MCH 34.6 pg (25.7-33.7); MCHC 30.8 g/dl (32.0-36.0); MEAN CELL VOLUME 112.5 fl (80-96); MEAN PLT VOLUME 8.6 fl (7.5-11.1); PLATELET COUNT 113 K/MM3 (134-434); RBC 2.65 M/mm3 (3.60-5.2); RDW 16.4 % (11.6-15.6); WHITE BLOOD COUNT 7.7 K/mm3 (4.0-10.0)
[2019-05-22 09:24] LABS: BLOOD UREA NITROGEN 29.2 mg/dL (7-18); CALCIUM 8.3 mg/dL (8.5-10.1); CREATININE 3.9 mg/dL (0.55-1.3); POTASSIUM 4.1 mmol/L (3.5-5.1)
[2019-05-22] MEDS ORDERED: EPOETIN ALFA 10,000 UNIT/1 ML VIAL IVPUSH ONE (10:00)
[2019-05-22] MEDS ORDERED: SODIUM CHLORIDE 250 ML IV PRN (10:00)
--- NOTE | 2019-05-22 10:36 | PN ---
Progress Note (short form) - Note Progress Note: AWAITING DISCHARGE TO SNF [employer] HAVE BEEN DISCUSSING PLAN AND GOALS OF CARE WITH FAMILY. PATIENT IS NOT A CANDIDATE FOR A RIGHT LOWER EXTREMITY PROSTHESIS BECAUSE THE RISK IS GREATER THAN THE BENEFIT WITH HER MULTIPLE CO-MORBIDITIES. HD PER RENAL PAIN CONTROL DVT RPOPHYLAXIS SPLINT TO RIGHT LOWER LEG. Problem List - Problems (1) Anemia Code(s): D64.9 - ANEMIA, UNSPECIFIED (2) ESRD (end stage renal disease) Code(s): N18.6 - END STAGE RENAL DISEASE (3) Femur fracture, right Code(s): S72.91XA - UNSP FRACTURE OF RIGHT FEMUR, INIT FOR CLOS FX (4) Hyponatremia Code(s): E87.1 - HYPO-OSMOLALITY AND HYPONATREMIA (5) Systolic CHF Code(s): I50.20 - UNSPECIFIED SYSTOLIC (CONGESTIVE) HEART FAILURE (6) Atrial fibrillation Code(s): I48.91 - UNSPECIFIED ATRIAL FIBRILLATION Qualifiers: (7) Diabetes Code(s): E11.9 - TYPE 2 DIABETES MELLITUS WITHOUT COMPLICATIONS (8) H/O heart artery stent Code(s): Z95.5 - PRESENCE OF CORONARY ANGIOPLASTY IMPLANT AND GRAFT
[2019-05-22] MEDS: SODIUM HYPOCHLORITE 0.25%- 473 ML BULK BOTTLE TP SCH (14:22)
[2019-05-22] MEDS: METOPROLOL TARTRATE 25 MG TABLET (FP) PO SCH ×2 (14:22→22:20)
[2019-05-22] MEDS: POLYETHYLENE GLYCOL 3350 119 GM BTL PO SCH (14:22)
[2019-05-22] MEDS: SILVER SULFADIAZINE 1% TOP CREAM 50 GM JAR TP SCH (14:22)
--- NOTE | 2019-05-22 15:55 | PN ---
Progress Note (short form) - Note Progress Note: Renal follow up for ESRD on HD Seen and examined at the bedside. awake and alert s/p dialysis this am, tolerated 2kg UF no chest pain, sob, fever or chills Vital Signs Temperature 97.7 F 05/22/19 09:45 Pulse Rate 61 05/22/19 13:10 Respiratory Rate 18 05/22/19 13:10 Blood Pressure 101/51 L 05/22/19 13:10 O2 Sat by Pulse Oximetry (%) 98 05/18/19 21:00 Intake & Output 05/19/19 05/20/19 05/21/19 05/22/19 23:59 23:59 23:59 23:59 Intake Total 440 900 200 500 Output Total 2500 2500 Balance 440 -1600 200 -2000 Weight 65.68 kg 65.998 kg 65.998 kg 64.138 kg NAD awake and alert neck supple, no JVD RRR CTA soft NT/ND NO LE edema CBC, BMP 05/22/19 08:10 05/22/19 07:00 Current Medications Albuterol Sulfate (Ventolin 0.083% Nebulizer Soln -) 1 amp NEB Q4H PRN PRN Reason: SHORT OF BREATH/WHEEZING Last Admin: 05/21/19 18:30 Dose: 1 amp Docusate Sodium (Colace -) 300 mg PO HS [facility] Last Admin: 05/21/19 21:15 Dose: 300 mg Heparin Sodium (Porcine) (Heparin -) 5,000 unit SQ TID [facility] Last Admin: 05/22/19 14:22 Dose: Not Given Sodium Chloride (Normal Saline -) 250 mls @ 3,000 mls/hr IV PRN PRN PRN Reason: Hypotension during Dialysis Stop: 05/23/19 09:59 Insulin Aspart (Novolog Vial Sliding Scale -) 1 vial SQ ACHS [facility]; Protocol Last Admin: 05/22/19 14:21 Dose: Not Given Levothyroxine Sodium (Synthroid -) 150 mcg PO DAILY@0700 [facility] Last Admin: 05/22/19 06:35 Dose: 150 mcg Metoprolol Tartrate (Lopressor -) 25 mg PO BID [facility] Last Admin: 05/22/19 14:22 Dose: 25 mg Morphine Sulfate (Morphine Sulfate) 2 mg IVPUSH Q6H PRN PRN Reason: PAIN SCALE 6-10 Last Admin: 05/22/19 15:10 Dose: 2 mg Polyethylene Glycol (Miralax (For Daily Use) -) 17 gm PO DAILY [facility] Last Admin: 05/22/19 14:22 Dose: Not Given Silver Sulfadiazine (Silvadene -) 1 applic TP DAILY [facility] Last Admin: 05/22/19 14:22 Dose: 1 applic Sodium Hypochlorite (Dakin's Solution 0.25% (Half-Strength) -) 1 applic TP DAILY [facility] Last Admin: 05/22/19 14:22 Dose: 1 applic 84 year old woman with history of ESRD on HD, CHF, CAD, hypertension who presented form [place] s/p fall with femur fracture. 1. ESRD on HD 2. Femur fracture 3. Hx of HF, not acutely decompensated 4. CAD 5. Hypertension tolerated dialysis this am, UF 2L continue supportive care and pain control orthopedics re-eval in 1 month Renal diet, 1.2L fluid restriction discharge planning, waiting placement Thank you Kenny Yeboah DO
[2019-05-22] MEDS: ALBUTEROL SO4 0.083% IH SOL 2.5 MG/3 ML VIAL.NEB. NEB PRN (20:20)
[2019-05-22] MEDS: DOCUSATE SODIUM 100 MG CAPSULE (FP) PO SCH (22:42)
[2019-05-23] MEDS: HEPARIN NA (PORCINE) 5,000 UNITS/ML 1ML VIAL SQ SCH ×3 (05:10→21:35)
[2019-05-23] MEDS: LEVOTHYROXINE NA 75 MCG TABLET (FP) PO SCH (06:18)
[2019-05-23] MEDS ORDERED: DEXTROSE 50%-WATER - 25 GM/50 ML VIAL IVPUSH ONE ×2 (06:20→06:22)
[2019-05-23] MEDS ORDERED: DEXTROSE 50%-WATER 25 GM/50 ML DISP.SYRIN ONE (06:30)
[2019-05-23] MEDS: INSULIN SLIDING SCALE (NOVOLOG) 1 VIAL SQ SCH ×4 (06:41→21:44)
[2019-05-23] MEDS: POLYETHYLENE GLYCOL 3350 119 GM BTL PO SCH (10:26)
[2019-05-23] MEDS: METOPROLOL TARTRATE 25 MG TABLET (FP) PO SCH ×2 (10:26→21:44)
[2019-05-23] MEDS: SILVER SULFADIAZINE 1% TOP CREAM 50 GM JAR TP SCH (10:27)
[2019-05-23] MEDS: SODIUM HYPOCHLORITE 0.25%- 473 ML BULK BOTTLE TP SCH (10:27)
--- NOTE | 2019-05-23 14:15 | PN ---
Progress Note, Physician Chief Complaint: R Femur Fracture History of Present Illness: Previous notes and events reviewed awake and alert NAD sts pain is controlled with medication denies chest pain or SOB patient is pending bed assignment for SNF - Current Medication List Current Medications: Active Medications Albuterol Sulfate (Ventolin 0.083% Nebulizer Soln -) 1 amp NEB Q4H PRN PRN Reason: SHORT OF BREATH/WHEEZING Last Admin: 05/22/19 20:20 Dose: 1 amp Docusate Sodium (Colace -) 300 mg PO HS [facility] Last Admin: 05/22/19 22:42 Dose: 300 mg Heparin Sodium (Porcine) (Heparin -) 5,000 unit SQ TID [facility] Last Admin: 05/23/19 05:10 Dose: Not Given Insulin Aspart (Novolog Vial Sliding Scale -) 1 vial SQ ACHS [facility]; Protocol Last Admin: 05/23/19 12:12 Dose: Not Given Levothyroxine Sodium (Synthroid -) 150 mcg PO DAILY@0700 [facility] Last Admin: 05/23/19 06:18 Dose: 150 mcg Metoprolol Tartrate (Lopressor -) 25 mg PO BID [facility] Last Admin: 05/23/19 10:26 Dose: Not Given Polyethylene Glycol (Miralax (For Daily Use) -) 17 gm PO DAILY [facility] Last Admin: 05/23/19 10:26 Dose: Not Given Silver Sulfadiazine (Silvadene -) 1 applic TP DAILY [facility] Last Admin: 05/23/19 10:27 Dose: 1 applic Sodium Hypochlorite (Dakin's Solution 0.25% (Half-Strength) -) 1 applic TP DAILY [facility] Last Admin: 05/23/19 10:27 Dose: 1 applic - Objective Vital Signs: Vital Signs Temperature 97.8 F 05/23/19 10:00 Pulse Rate 84 05/23/19 10:00 Respiratory Rate 18 05/23/19 10:00 Blood Pressure 90/49 L 05/23/19 10:00 O2 Sat by Pulse Oximetry (%) 100 05/22/19 21:00 Constitutional: Yes: No Distress, Calm Eyes: Yes: Conjunctiva Clear HENT: Yes: Atraumatic Cardiovascular: Yes: Regular Rate and Rhythm Respiratory: Yes: Regular, CTA Bilaterally Gastrointestinal: Yes: Normal Bowel Sounds, Soft Genitourinary: Yes: Incontinence Musculoskeletal: Yes: Muscle Weakness Extremities: Yes: Other (RLE deformity) Edema: No Neurological: Yes: Alert, Oriented, Pre-Existing Deficit Psychiatric: Yes: Alert, Oriented Labs: CBC, BMP 05/22/19 08:10 05/22/19 07:00 INR, PTT INR 1.19 (0.83-1.09) H 05/13/19 06:07 Microbiology 05/13/19 16:08 Nares - Left Nares MRSA Screen - Final NO MRSA ISOLATED 05/13/19 16:08 Nares - Mrsa Screen - Right MRSA Screen - Final NO MRSA ISOLATED Problem List - Problems (1) Femur fracture, right Assessment/Plan: -Ortho on board -CT Scan shows acute distal right femoral fracture, mildly expansile lesion is seen within the right iliiac bone with partial absence of the medial and lateral cortices ? benign vs malignant neoplastic disease -pain control -Cardiology for pre-op clearance -dvt ppx -Hip and Pelvic Xray shows distal femur segment has heavy periosteal reaction along its proximal margin and there is an acute fracture of distal femoral shaft withi arthritic changes in the knee joint Code(s): S72.91XA - UNSP FRACTURE OF RIGHT FEMUR, INIT FOR CLOS FX (2) Atrial fibrillation Assessment/Plan: -Cardiology for pre-op clearance -Metoprolol for rate control -no current AC, was on coumadin in the past but was stopped due to internal bleeding Code(s): I48.91 - UNSPECIFIED ATRIAL FIBRILLATION Qualifiers: (3) Diabetes Assessment/Plan: -BGM ACHS -ISS Code(s): E11.9 - TYPE 2 DIABETES MELLITUS WITHOUT COMPLICATIONS (4) ESRD (end stage renal disease) on dialysis Assessment/Plan: -Renal consult -BUN/Cr 29.2/3.9 -monitor renal function -Renal Diet Code(s): N18.6 - END STAGE RENAL DISEASE; Z99.2 - DEPENDENCE ON RENAL DIALYSIS (5) Hypothyroid Assessment/Plan: -Levothyroxine -TSH 5.19 Code(s): E03.9 - HYPOTHYROIDISM, UNSPECIFIED Qualifiers: (6) Hyponatremia Assessment/Plan: -Na 134 -resolved -renal consult Code(s): E87.1 - HYPO-OSMOLALITY AND HYPONATREMIA Assessment/Plan see problem list dvt ppx
--- NOTE | 2019-05-23 15:16 | PN ---
Progress Note (short form) - Note Progress Note: Renal follow up for ESRD on HD Seen and examined at the bedside. awake and alert offers no acute complaints awaiting rehab placement for discharge Vital Signs Temperature 97.8 F 05/23/19 10:00 Pulse Rate 84 05/23/19 10:00 Respiratory Rate 18 05/23/19 10:00 Blood Pressure 90/49 L 05/23/19 10:00 O2 Sat by Pulse Oximetry (%) 100 05/22/19 21:00 Intake & Output 05/20/19 05/21/19 05/22/19 05/23/19 23:59 23:59 23:59 23:59 Intake Total 900 200 500 0 Output Total 2500 2500 Balance -1600 200 -2000 0 Weight 65.998 kg 65.998 kg 64.138 kg 63.095 kg NAD awake and alert CBC, BMP 05/22/19 08:10 05/22/19 07:00 Current Medications Albuterol Sulfate (Ventolin 0.083% Nebulizer Soln -) 1 amp NEB Q4H PRN PRN Reason: SHORT OF BREATH/WHEEZING Last Admin: 05/22/19 20:20 Dose: 1 amp Docusate Sodium (Colace -) 300 mg PO HS [facility] Last Admin: 05/22/19 22:42 Dose: 300 mg Heparin Sodium (Porcine) (Heparin -) 5,000 unit SQ TID [facility] Last Admin: 05/23/19 05:10 Dose: Not Given Insulin Aspart (Novolog Vial Sliding Scale -) 1 vial SQ ACHS [facility]; Protocol Last Admin: 05/23/19 12:12 Dose: Not Given Levothyroxine Sodium (Synthroid -) 150 mcg PO DAILY@0700 [facility] Last Admin: 05/23/19 06:18 Dose: 150 mcg Metoprolol Tartrate (Lopressor -) 25 mg PO BID [facility] Last Admin: 05/23/19 10:26 Dose: Not Given Polyethylene Glycol (Miralax (For Daily Use) -) 17 gm PO DAILY [facility] Last Admin: 05/23/19 10:26 Dose: Not Given Silver Sulfadiazine (Silvadene -) 1 applic TP DAILY [facility] Last Admin: 05/23/19 10:27 Dose: 1 applic Sodium Hypochlorite (Dakin's Solution 0.25% (Half-Strength) -) 1 applic TP DAILY [facility] Last Admin: 05/23/19 10:27 Dose: 1 applic 84 year old woman with history of ESRD on HD, CHF, CAD, hypertension who presented [place] s/p fall with femur fracture. 1. ESRD on HD 2. Femur fracture 3. Hx of HF, not acutely decompensated 4. CAD 5. Hypertension no acute need for dialysis today. Next HD planned for tomorrow. Maintain renal diet and 1.2L fluid restriction. Pain control outpatient rehab placement pending. Thank you Kenny Yeboah DO
[2019-05-23] MEDS: DOCUSATE SODIUM 100 MG CAPSULE (FP) PO SCH (21:43)
[2019-05-24] MEDS: LEVOTHYROXINE NA 75 MCG TABLET (FP) PO SCH (06:18)
[2019-05-24] MEDS: HEPARIN NA (PORCINE) 5,000 UNITS/ML 1ML VIAL SQ SCH ×3 (06:18→21:35)
[2019-05-24] MEDS: INSULIN SLIDING SCALE (NOVOLOG) 1 VIAL SQ SCH ×4 (06:18→21:41)
[2019-05-24 07:56] LABS: HEMATOCRIT 31.3 % (32.4-45.2); HEMOGLOBIN 9.7 GM/dL (10.7-15.3); MCH 34.9 pg (25.7-33.7); MCHC 31.1 g/dl (32.0-36.0); MEAN CELL VOLUME 112.4 fl (80-96); MEAN PLT VOLUME 8.5 fl (7.5-11.1); PLATELET COUNT 110 K/MM3 (134-434); RBC 2.78 M/mm3 (3.60-5.2); RDW 17.1 % (11.6-15.6); WHITE BLOOD COUNT 6.9 K/mm3 (4.0-10.0)
[2019-05-24 08:12] LABS: ALBUMIN 1.8 g/dl (3.4-5.0); ALK PHOS 188 U/L (45-117); ANION GAP 6 MMOL/L (8-16); BILIRUBIN,TOTAL 1.5 mg/dL (0.2-1); BLOOD UREA NITROGEN 25.2 mg/dL (7-18); CALCIUM 8.6 mg/dL (8.5-10.1); CHLORIDE 99 mmol/L (98-107); CO2 32 mmol/L (21-32); CREATININE 3.8 mg/dL (0.55-1.3); GLUCOSE,RANDOM 67 mg/dL (74-106); PHOSPHOROUS 3.6 mg/dL (2.5-4.9); POTASSIUM 4.1 mmol/L (3.5-5.1); SGOT/AST 16 U/L (15-37); SGPT/ALT < 6 U/L (13-61); SODIUM 137 mmol/L (136-145); TOT PROT 7.2 g/dl (6.4-8.2)
--- NOTE | 2019-05-24 08:39 | PN ---
Progress Note, Physician Chief Complaint: Pt is alert and oriented x 3; pain in fractured leg when she is repositioned in bed, but has to do so to avoid back pain. History of Present Illness: Ms. Joseph is an 84 yo white female with pmh of ESRD on HD (TTS), diastolic CHF , Afib, CAD, HTN and R hip replacement by Dr. Tinoco who presents to the ED 2 days after a fall in [facility]. Pt states she was seated on an air mattress, fell with right femur pain however was not assessed or x rayed until last night. Pt describes significant pain in the right femur with deformity, however , she is able to move her toes and has full sensation in her right distal ext. She denies chest pain; she does become dysneic on mild exertion. - Current Medication List Current Medications: Active Medications Albuterol Sulfate (Ventolin 0.083% Nebulizer Soln -) 1 amp NEB Q4H PRN PRN Reason: SHORT OF BREATH/WHEEZING Last Admin: 05/22/19 20:20 Dose: 1 amp Docusate Sodium (Colace -) 300 mg PO HS [facility] Last Admin: 05/23/19 21:43 Dose: 300 mg Epoetin Cesar (Epogen -) 10,000 unit IVPUSH ONCE ONE Stop: 05/24/19 07:01 Heparin Sodium (Porcine) (Heparin -) 5,000 unit SQ TID [facility] Last Admin: 05/24/19 06:18 Dose: Not Given Sodium Chloride (Normal Saline -) 250 mls @ 3,000 mls/hr IV PRN PRN PRN Reason: Hypotension during Dialysis Stop: 05/24/19 15:16 Insulin Aspart (Novolog Vial Sliding Scale -) 1 vial SQ ACHS [facility]; Protocol Last Admin: 05/24/19 06:18 Dose: Not Given Levothyroxine Sodium (Synthroid -) 150 mcg PO DAILY@0700 [facility] Last Admin: 05/24/19 06:18 Dose: 150 mcg Metoprolol Tartrate (Lopressor -) 25 mg PO BID [facility] Last Admin: 05/23/19 21:44 Dose: Not Given Polyethylene Glycol (Miralax (For Daily Use) -) 17 gm PO DAILY [facility] Last Admin: 05/23/19 10:26 Dose: Not Given Silver Sulfadiazine (Silvadene -) 1 applic TP DAILY [facility] Last Admin: 05/23/19 10:27 Dose: 1 applic Sodium Hypochlorite (Dakin's Solution 0.25% (Half-Strength) -) 1 applic TP DAILY [facility] Last Admin: 05/23/19 10:27 Dose: 1 applic - Objective Vital Signs: Vital Signs Temperature 98.0 F 05/24/19 06:00 Pulse Rate 111 H 05/24/19 06:00 Respiratory Rate 20 05/23/19 23:32 Blood Pressure 120/68 05/24/19 06:00 O2 Sat by Pulse Oximetry (%) 98 05/23/19 09:00 Constitutional: Yes: Calm Eyes: Yes: WNL HENT: Yes: WNL Neck: Yes: WNL Cardiovascular: Yes: S1 (varies in intensity), S2 Respiratory: Yes: Regular Gastrointestinal: Yes: Soft ...Rectal Exam: Yes: Deferred Genitourinary: No: Anuria Breast(s): Yes: WNL Musculoskeletal: Yes: Muscle Pain Extremities: Yes: Cool, Other (rt LE fracture-->limited ROM) Edema: No Peripheral Pulses WNL: Yes Integumentary: Yes: WNL Neurological: Yes: WNL Psychiatric: Yes: WNL Labs: CBC, BMP 05/24/19 05:52 05/24/19 05:52 INR, PTT INR 1.19 (0.83-1.09) H 05/13/19 06:07 Problem List - Problems (1) Systolic CHF Assessment/Plan: On metoprolol ER for systolic CHF and AF. Consider ACEI (systolic CHF; DM), if BP allows. Code(s): I50.20 - UNSPECIFIED SYSTOLIC (CONGESTIVE) HEART FAILURE (2) Femur fracture, right Assessment/Plan: Plans for rehabilitation; pt is hopeful progress will be made, and surgery can be done in the future "so I can stand and walk again". Code(s): S72.91XA - UNSP FRACTURE OF RIGHT FEMUR, INIT FOR CLOS FX (3) Hyponatremia Assessment/Plan: Improving ; now 134 Code(s): E87.1 - HYPO-OSMOLALITY AND HYPONATREMIA (4) Aortic stenosis Assessment/Plan: mild-moderate , with mildly reduced LVEF, moderate-severely reduced RVEF, and severe pulmonary HTN on 01/2019 ECHO. On metorprolol for AF, HTN. Code(s): I35.0 - NONRHEUMATIC AORTIC (VALVE) STENOSIS Qualifiers: Cardiac valve disease etiology: nonrheumatic Qualified Code(s): I35.0 - Nonrheumatic aortic (valve) stenosis (5) Atrial fibrillation Assessment/Plan: on metoprolol for HR control (may change to ER for easier compliance). Systemic anticoagulation (e.g. DOAC) unless contraindications exist. Code(s): I48.91 - UNSPECIFIED ATRIAL FIBRILLATION Qualifiers: (6) CAD (coronary artery disease) Code(s): I25.10 - ATHSCL HEART DISEASE OF [place] CORONARY ARTERY W/O ANG PCTRS (7) Hypertension Code(s): I10 - ESSENTIAL (PRIMARY) HYPERTENSION Qualifiers: Hypertension type: essential hypertension Qualified Code(s): I10 - Essential (primary) hypertension (8) Severe protein-calorie malnutrition Code(s): E43 - UNSPECIFIED SEVERE PROTEIN-CALORIE MALNUTRITION (9) Anemia Code(s): D64.9 - ANEMIA, UNSPECIFIED (10) ESRD (end stage renal disease) Code(s): N18.6 - END STAGE RENAL DISEASE (11) Diabetes Code(s): E11.9 - TYPE 2 DIABETES MELLITUS WITHOUT COMPLICATIONS
[2019-05-24] MEDS: POLYETHYLENE GLYCOL 3350 119 GM BTL PO SCH (09:23)
[2019-05-24] MEDS ORDERED: EPOETIN ALFA 10,000 UNIT/1 ML VIAL IVPUSH ONE (10:00)
[2019-05-24] MEDS ORDERED: SODIUM CHLORIDE 250 ML IV PRN (15:16)
--- NOTE | 2019-05-24 16:12 | PN ---
Progress Note, Physician Chief Complaint: R Femur Fracture History of Present Illness: Previous notes and events reviewed awake and alert NAD denies chest pain or SOB patient is pending bed assignment for SNF - Current Medication List Current Medications: Active Medications Albuterol Sulfate (Ventolin 0.083% Nebulizer Soln -) 1 amp NEB Q4H PRN PRN Reason: SHORT OF BREATH/WHEEZING Last Admin: 05/22/19 20:20 Dose: 1 amp Docusate Sodium (Colace -) 300 mg PO HS [facility] Last Admin: 05/23/19 21:43 Dose: 300 mg Heparin Sodium (Porcine) (Heparin -) 5,000 unit SQ TID [facility] Last Admin: 05/24/19 14:44 Dose: Not Given Sodium Chloride (Normal Saline -) 250 mls @ 3,000 mls/hr IV PRN PRN PRN Reason: Hypotension during Dialysis Stop: 05/25/19 15:15 Insulin Aspart (Novolog Vial Sliding Scale -) 1 vial SQ ACHS REPLACED BY [facility]; Protocol Last Admin: 05/24/19 14:43 Dose: Not Given Levothyroxine Sodium (Synthroid -) 150 mcg PO DAILY@0700 [facility] Last Admin: 05/24/19 06:18 Dose: 150 mcg Metoprolol Succinate (Toprol Xl -) 50 mg PO DAILY [facility]PL[facility] Last Admin: 05/24/19 09:23 Dose: Not Given Polyethylene Glycol (Miralax (For Daily Use) -) 17 gm PO DAILY [facility] Last Admin: 05/24/19 09:23 Dose: Not Given Silver Sulfadiazine (Silvadene -) 1 applic TP DAILY [facility] Last Admin: 05/23/19 10:27 Dose: 1 applic Sodium Hypochlorite (Dakin's Solution 0.25% (Half-Strength) -) 1 applic TP DAILY [facility] Last Admin: 05/23/19 10:27 Dose: 1 applic - Objective Vital Signs: Vital Signs Temperature 98 F 05/24/19 15:00 Pulse Rate 97 H 05/24/19 15:00 Respiratory Rate 18 05/24/19 12:11 Blood Pressure 115/59 L 05/24/19 15:00 O2 Sat by Pulse Oximetry (%) 98 05/24/19 09:00 Constitutional: Yes: No Distress, Calm Eyes: Yes: Conjunctiva Clear HENT: Yes: Atraumatic Cardiovascular: Yes: Regular Rate and Rhythm Respiratory: Yes: Regular, CTA Bilaterally Gastrointestinal: Yes: Normal Bowel Sounds, Soft Genitourinary: Yes: Incontinence Extremities: Yes: Other (RLE deformity) Edema: No Neurological: Yes: Alert, Oriented Psychiatric: Yes: Alert, Oriented Labs: CBC, BMP 05/24/19 05:52 05/24/19 05:52 INR, PTT INR 1.19 (0.83-1.09) H 05/13/19 06:07 Microbiology 05/13/19 16:08 Nares - Left Nares MRSA Screen - Final NO MRSA ISOLATED 05/13/19 16:08 Nares - Mrsa Screen - Right MRSA Screen - Final NO MRSA ISOLATED Problem List - Problems (1) Femur fracture, right Assessment/Plan: -Ortho on board -CT Scan shows acute distal right femoral fracture, mildly expansile lesion is seen within the right iliiac bone with partial absence of the medial and lateral cortices ? benign vs malignant neoplastic disease -pain control -Cardiology for pre-op clearance -dvt ppx -Hip and Pelvic Xray shows distal femur segment has heavy periosteal reaction along its proximal margin and there is an acute fracture of distal femoral shaft withi arthritic changes in the knee joint Code(s): S72.91XA - UNSP FRACTURE OF RIGHT FEMUR, INIT FOR CLOS FX (2) Atrial fibrillation Assessment/Plan: -Metoprolol for rate control -no current AC, was on coumadin in the past but was stopped due to internal bleeding Code(s): I48.91 - UNSPECIFIED ATRIAL FIBRILLATION Qualifiers: (3) Diabetes Assessment/Plan: -[facility] -ISS Code(s): E11.9 - TYPE 2 DIABETES MELLITUS WITHOUT COMPLICATIONS (4) ESRD (end stage renal disease) on dialysis Assessment/Plan: -Renal consult -BUN/Cr 25.2/3.8 -monitor renal function -Renal Diet Code(s): N18.6 - END STAGE RENAL DISEASE; Z99.2 - DEPENDENCE ON RENAL DIALYSIS (5) Hypothyroid Assessment/Plan: -Levothyroxine -TSH 5. Code(s): E03.9 - HYPOTHYROIDISM, UNSPECIFIED Qualifiers: (6) Hyponatremia Assessment/Plan: -Na 137 -resolved -renal consult Code(s): E87.1 - HYPO-OSMOLALITY AND HYPONATREMIA Assessment/Plan see problem list dvt ppx
[2019-05-24] MEDS: SODIUM HYPOCHLORITE 0.25%- 473 ML BULK BOTTLE TP SCH (17:48)
[2019-05-24] MEDS: SILVER SULFADIAZINE 1% TOP CREAM 50 GM JAR TP SCH (17:49)
--- NOTE | 2019-05-24 19:11 | PN ---
Progress Note (short form) - Note Progress Note: covering dr mamadou castro 1. ESRD on HD 2. Femur fracture 3. Hx of HF, not acutely decompensated 4. CAD 5. Hypertension Current Medications Albuterol Sulfate (Ventolin 0.083% Nebulizer Soln -) 1 amp NEB Q4H PRN PRN Reason: SHORT OF BREATH/WHEEZING Last Admin: 05/22/19 20:20 Dose: 1 amp Docusate Sodium (Colace -) 300 mg PO HS [facility] Last Admin: 05/23/19 21:43 Dose: 300 mg Heparin Sodium (Porcine) (Heparin -) 5,000 unit SQ TID [facility] Last Admin: 05/24/19 14:44 Dose: Not Given Sodium Chloride (Normal Saline -) 250 mls @ 3,000 mls/hr IV PRN PRN PRN Reason: Hypotension during Dialysis Stop: 05/25/19 15:15 Insulin Aspart (Novolog Vial Sliding Scale -) 1 vial SQ ACHS [facility]; Protocol Last Admin: 05/24/19 17:49 Dose: Not Given Levothyroxine Sodium (Synthroid -) 150 mcg PO DAILY@0700 [facility] Last Admin: 05/24/19 06:18 Dose: 150 mcg Metoprolol Succinate (Toprol Xl -) 50 mg PO DAILY [facility] Last Admin: 05/24/19 09:23 Dose: Not Given Polyethylene Glycol (Miralax (For Daily Use) -) 17 gm PO DAILY [facility] Last Admin: 05/24/19 09:23 Dose: Not Given Silver Sulfadiazine (Silvadene -) 1 applic TP DAILY [facility] Last Admin: 05/24/19 17:49 Dose: 1 applic Sodium Hypochlorite (Dakin's Solution 0.25% (Half-Strength) -) 1 applic TP DAILY [facility] Last Admin: 05/24/19 17:48 Dose: 1 applic Last Vital Signs Temp Pulse Resp BP Pulse Ox 98.3 F 113 H 18 127/63 98 05/24/19 17:40 05/24/19 17:40 05/24/19 17:40 05/24/19 17:40 05/24/19 09:00 CBC, BMP 05/24/19 05:52 05/24/19 05:52 IMP- ESRD stable on HD Plan- next HD on Sunday
[2019-05-24] MEDS ORDERED: ACETAMINOPHEN 325 MG TABLET (FP) PO ONE (21:00)
[2019-05-24] MEDS ORDERED: oxyCODONE HCL 5 MG TABLET PO ONE (21:00)
[2019-05-24] MEDS: DOCUSATE SODIUM 100 MG CAPSULE (FP) PO SCH (21:35)
[2019-05-25] MEDS: HEPARIN NA (PORCINE) 5,000 UNITS/ML 1ML VIAL SQ SCH ×3 (06:29→21:30)
[2019-05-25] MEDS: INSULIN SLIDING SCALE (NOVOLOG) 1 VIAL SQ SCH ×4 (06:34→21:35)
[2019-05-25] MEDS: LEVOTHYROXINE NA 75 MCG TABLET (FP) PO SCH (06:34)
[2019-05-25 08:20] LABS: HEMATOCRIT 31.1 % (32.4-45.2); HEMOGLOBIN 9.5 GM/dL (10.7-15.3); MCH 34.8 pg (25.7-33.7); MCHC 30.4 g/dl (32.0-36.0); MEAN CELL VOLUME 114.5 fl (80-96); MEAN PLT VOLUME 8.8 fl (7.5-11.1); PLATELET COUNT 97 K/MM3 (134-434); RBC 2.72 M/mm3 (3.60-5.2); RDW 16.5 % (11.6-15.6); WHITE BLOOD COUNT 6.1 K/mm3 (4.0-10.0)
[2019-05-25 08:47] LABS: ALBUMIN 1.6 g/dl (3.4-5.0); ALK PHOS 161 U/L (45-117); ANION GAP 5 MMOL/L (8-16); BILIRUBIN,TOTAL 1.2 mg/dL (0.2-1); BLOOD UREA NITROGEN 14.2 mg/dL (7-18); CALCIUM 8.8 mg/dL (8.5-10.1); CHLORIDE 100 mmol/L (98-107); CO2 33 mmol/L (21-32); CREATININE 2.6 mg/dL (0.55-1.3); GLUCOSE,RANDOM 54 mg/dL (74-106); POTASSIUM 3.4 mmol/L (3.5-5.1); SGOT/AST 14 U/L (15-37); SGPT/ALT < 6 U/L (13-61); SODIUM 138 mmol/L (136-145); TOT PROT 6.7 g/dl (6.4-8.2)
[2019-05-25] MEDS ORDERED: PT OWN MED DRAWER 7, Y5N ONE (08:48)
[2019-05-25] MEDS: SILVER SULFADIAZINE 1% TOP CREAM 50 GM JAR TP SCH (09:26)
[2019-05-25] MEDS: POLYETHYLENE GLYCOL 3350 119 GM BTL PO SCH (09:27)
[2019-05-25] MEDS: SODIUM HYPOCHLORITE 0.25%- 473 ML BULK BOTTLE TP SCH (09:27)
--- NOTE | 2019-05-25 15:23 | PN ---
Progress Note, Physician Chief Complaint: R Femur Fracture History of Present Illness: Previous notes and events reviewed awake and alert NAD denies chest pain or SOB patient is pending bed assignment for SNF no acute events - Current Medication List Current Medications: Active Medications Albuterol Sulfate (Ventolin 0.083% Nebulizer Soln -) 1 amp NEB Q4H PRN PRN Reason: SHORT OF BREATH/WHEEZING Last Admin: 05/22/19 20:20 Dose: 1 amp Docusate Sodium (Colace -) 300 mg PO HS [facility] Last Admin: 05/24/19 21:35 Dose: 300 mg Heparin Sodium (Porcine) (Heparin -) 5,000 unit SQ TID [facility] Last Admin: 05/25/19 13:42 Dose: Not Given Insulin Aspart (Novolog Vial Sliding Scale -) 1 vial SQ ACHS [facility]; Protocol Last Admin: 05/25/19 11:26 Dose: Not Given Levothyroxine Sodium (Synthroid -) 150 mcg PO DAILY@0700 [facility] Last Admin: 05/25/19 06:34 Dose: 150 mcg Metoprolol Succinate (Toprol Xl -) 50 mg PO DAILY [facility] Last Admin: 05/25/19 09:24 Dose: 50 mg Polyethylene Glycol (Miralax (For Daily Use) -) 17 gm PO DAILY [facility] Last Admin: 05/25/19 09:27 Dose: Not Given Silver Sulfadiazine (Silvadene -) 1 applic TP DAILY [facility] Last Admin: 05/25/19 09:26 Dose: 1 applic Sodium Hypochlorite (Dakin's Solution 0.25% (Half-Strength) -) 1 applic TP DAILY [facility] Last Admin: 05/25/19 09:27 Dose: 1 applic - Objective Vital Signs: Vital Signs Temperature 97.7 F 05/25/19 10:00 Pulse Rate 105 H 05/25/19 10:00 Respiratory Rate 20 05/25/19 10:00 Blood Pressure 114/68 05/25/19 10:00 O2 Sat by Pulse Oximetry (%) 98 05/25/19 09:00 Constitutional: Yes: No Distress, Calm Eyes: Yes: Conjunctiva Clear HENT: Yes: Atraumatic Cardiovascular: Yes: Pulse Irregular Respiratory: Yes: Regular, CTA Bilaterally Gastrointestinal: Yes: Normal Bowel Sounds, Soft Genitourinary: Yes: Incontinence Musculoskeletal: Yes: Muscle Weakness Extremities: Yes: Other (RLE deformity) Edema: No Neurological: Yes: Alert, Oriented Psychiatric: Yes: Alert, Oriented Labs: CBC, BMP 05/25/19 06:20 05/25/19 06:20 INR, PTT INR 1.19 (0.83-1.09) H 05/13/19 06:07 Microbiology 05/13/19 16:08 Nares - Left Nares MRSA Screen - Final NO MRSA ISOLATED 05/13/19 16:08 Nares - Mrsa Screen - Right MRSA Screen - Final NO MRSA ISOLATED Problem List - Problems (1) Femur fracture, right Assessment/Plan: -Ortho on board -CT Scan shows acute distal right femoral fracture, mildly expansile lesion is seen within the right iliiac bone with partial absence of the medial and lateral cortices ? benign vs malignant neoplastic disease -pain control -Cardiology for pre-op clearance -dvt ppx -Hip and Pelvic Xray shows distal femur segment has heavy periosteal reaction along its proximal margin and there is an acute fracture of distal femoral shaft withi arthritic changes in the knee joint Code(s): S72.91XA - UNSP FRACTURE OF RIGHT FEMUR, INIT FOR CLOS FX (2) Atrial fibrillation Assessment/Plan: -Metoprolol for rate control -no current AC, was on coumadin in the past but was stopped due to internal bleeding Code(s): I48.91 - UNSPECIFIED ATRIAL FIBRILLATION Qualifiers: (3) Diabetes Assessment/Plan: -B[facility] ACHS -ISS Code(s): E11.9 - TYPE 2 DIABETES MELLITUS WITHOUT COMPLICATIONS (4) ESRD (end stage renal disease) on dialysis Assessment/Plan: -Renal consult -BUN/Cr 14.2/2.6 -monitor renal function -Renal Diet Code(s): N18.6 - END STAGE RENAL DISEASE; Z99.2 - DEPENDENCE ON RENAL DIALYSIS (5) Hypothyroid Assessment/Plan: -Levothyroxine -TSH 5.19 Code(s): E03.9 - HYPOTHYROIDISM, UNSPECIFIED Qualifiers: (6) Hyponatremia Assessment/Plan: -Na 138 -resolved -renal consult Code(s): E87.1 - HYPO-OSMOLALITY AND HYPONATREMIA Assessment/Plan see problem list dvt ppx pending bed assignment for SNF
[2019-05-25] MEDS ORDERED: POTASSIUM CHLORIDE ORAL LIQUID 20 MEQ/15 ML PO ONE (15:26)
--- NOTE | 2019-05-25 16:48 | PN ---
Progress Note (short form) - Note Progress Note: covering dr mamadou casrto 1. ESRD on HD 2. Femur fracture 3. Hx of HF, not acutely decompensated 4. CAD 5. Hypertension Current Medications Albuterol Sulfate (Ventolin 0.083% Nebulizer Soln -) 1 amp NEB Q4H PRN PRN Reason: SHORT OF BREATH/WHEEZING Last Admin: 05/22/19 20:20 Dose: 1 amp Docusate Sodium (Colace -) 300 mg PO HS [facility] Last Admin: 05/24/19 21:35 Dose: 300 mg Heparin Sodium (Porcine) (Heparin -) 5,000 unit SQ TID [facility] Last Admin: 05/25/19 13:42 Dose: Not Given Insulin Aspart (Novolog Vial Sliding Scale -) 1 vial SQ ACHS [facility]; Protocol Last Admin: 05/25/19 16:37 Dose: Not Given Levothyroxine Sodium (Synthroid -) 150 mcg PO DAILY@0700 [facility] Last Admin: 05/25/19 06:34 Dose: 150 mcg Metoprolol Succinate (Toprol Xl -) 50 mg PO DAILY [facility] Last Admin: 05/25/19 09:24 Dose: 50 mg Polyethylene Glycol (Miralax (For Daily Use) -) 17 gm PO DAILY [facility] Last Admin: 05/25/19 09:27 Dose: Not Given Silver Sulfadiazine (Silvadene -) 1 applic TP DAILY [facility] Last Admin: 05/25/19 09:26 Dose: 1 applic Sodium Hypochlorite (Dakin's Solution 0.25% (Half-Strength) -) 1 applic TP DAILY [facility] Last Admin: 05/25/19 09:27 Dose: 1 applic Last Vital Signs Temp Pulse Resp BP Pulse Ox 97.7 F 86 20 110/55 L 98 05/25/19 15:00 05/25/19 15:00 05/25/19 10:00 05/25/19 15:00 05/25/19 09:00 lungs clear heart reg abd soft nontender ext n edema CBC, BMP 05/24/19 05:52 05/24/19 05:52 IMP- ESRD stable on HD Plan- next HD on Sunday
[2019-05-25] MEDS: ALBUTEROL SO4 0.083% IH SOL 2.5 MG/3 ML VIAL.NEB. NEB PRN (21:14)
[2019-05-25] MEDS: DOCUSATE SODIUM 100 MG CAPSULE (FP) PO SCH (21:32)
[2019-05-26] MEDS ORDERED: oxyCODONE HCL 5 MG TABLET PO ONE (00:38)
[2019-05-26] MEDS: HEPARIN NA (PORCINE) 5,000 UNITS/ML 1ML VIAL SQ SCH ×3 (05:31→21:31)
[2019-05-26] MEDS: LEVOTHYROXINE NA 75 MCG TABLET (FP) PO SCH (06:21)
[2019-05-26] MEDS: INSULIN SLIDING SCALE (NOVOLOG) 1 VIAL SQ SCH ×4 (06:21→21:31)
[2019-05-26 07:51] LABS: HEMATOCRIT 29.1 % (32.4-45.2); MCH 34.8 pg (25.7-33.7); MEAN CELL VOLUME 112.3 fl (80-96); MEAN PLT VOLUME 8.4 fl (7.5-11.1); PLATELET COUNT 103 K/MM3 (134-434); RBC 2.59 M/mm3 (3.60-5.2); RDW 17.1 % (11.6-15.6); WHITE BLOOD COUNT 6.1 K/mm3 (4.0-10.0)
[2019-05-26 08:12] LABS: ALBUMIN 1.6 g/dl (3.4-5.0); ALK PHOS 153 U/L (45-117); ANION GAP 6 MMOL/L (8-16); BILIRUBIN,TOTAL 0.9 mg/dL (0.2-1); BLOOD UREA NITROGEN 24.4 mg/dL (7-18); CALCIUM 8.6 mg/dL (8.5-10.1); CHLORIDE 99 mmol/L (98-107); CO2 33 mmol/L (21-32); CREATININE 3.7 mg/dL (0.55-1.3); GLUCOSE,RANDOM 63 mg/dL (74-106); SGOT/AST 11 U/L (15-37); SGPT/ALT < 6 U/L (13-61); SODIUM 137 mmol/L (136-145); TOT PROT 6.7 g/dl (6.4-8.2)
--- NOTE | 2019-05-26 08:13 | PN ---
Progress Note (short form) - Note Progress Note: PATIENT SEEN EXAMINED AWAITING TRANSFER TO [facility] ORTHOPEDIC F/U OUTPATIENT HD PER RENAL Problem List - Problems (1) Anemia Code(s): D64.9 - ANEMIA, UNSPECIFIED (2) ESRD (end stage renal disease) Code(s): N18.6 - END STAGE RENAL DISEASE (3) Femur fracture, right Code(s): S72.91XA - UNSP FRACTURE OF RIGHT FEMUR, INIT FOR CLOS FX (4) Hyponatremia Code(s): E87.1 - HYPO-OSMOLALITY AND HYPONATREMIA (5) Systolic CHF Code(s): I50.20 - UNSPECIFIED SYSTOLIC (CONGESTIVE) HEART FAILURE (6) Atrial fibrillation Code(s): I48.91 - UNSPECIFIED ATRIAL FIBRILLATION Qualifiers: (7) Diabetes Code(s): E11.9 - TYPE 2 DIABETES MELLITUS WITHOUT COMPLICATIONS (8) H/O heart artery stent Code(s): Z95.5 - PRESENCE OF CORONARY ANGIOPLASTY IMPLANT AND GRAFT
--- NOTE | 2019-05-26 08:51 | PN ---
Progress Note, Physician History of Present Illness: 83 yo female pmh of ESRD on HD (TTS), CHF, Afib, CAD, HTN and R hip replacement by Dr. Tinoco presents to the ED 2 days after a fall in [facility]. Pt states she was seated on an air mattress, fell with right femur pain however was not assessed or x rayed until last night. Pt describes significant pain in the right femur with deformity, however, she is able to move her toes and has full sensation in her right distal ext. Pt denies recent illness, AC, fals in the past, CP, SOB, back pain, changes in bowel or bladder habits, abdominal pain PMH Atrial fibrillation Bare metal stent of ostial LCx April 01, 2015 Dr. Elizabeth CAD - mLAD 30% , oLCx 90%, RPDA 40% March 05, 2015 Dr. Elizbaeth Diabetes mellitus, type II 1997 Dialysis 2010 End stage renal disease Hypertension Hypothyroidism Mildly reduced EF 48% February 2016 Moderate mean PG 23 mmHg February 2016 Severe GI bleed 2006 - Current Medication List Current Medications: Active Medications Acetaminophen (Tylenol -) 650 mg PO Q6H PRN PRN Reason: PAIN OR FEVER Albuterol Sulfate (Ventolin 0.083% Nebulizer Soln -) 1 amp NEB Q4H PRN PRN Reason: SHORT OF BREATH/WHEEZING Last Admin: 05/25/19 21:14 Dose: 1 amp Docusate Sodium (Colace -) 300 mg PO HS [facility] Last Admin: 05/25/19 21:32 Dose: 300 mg Heparin Sodium (Porcine) (Heparin -) 5,000 unit SQ TID [facility] Last Admin: 05/26/19 05:31 Dose: Not Given Insulin Aspart (Novolog Vial Sliding Scale -) 1 vial SQ ACHS [facility]; Protocol Last Admin: 05/26/19 06:21 Dose: Not Given Levothyroxine Sodium (Synthroid -) 150 mcg PO DAILY@0700 [facility] Last Admin: 05/26/19 06:21 Dose: 150 mcg Metoprolol Succinate (Toprol Xl -) 50 mg PO DAILY [facility] Last Admin: 05/25/19 09:24 Dose: 50 mg Polyethylene Glycol (Miralax (For Daily Use) -) 17 gm PO DAILY [facility] Last Admin: 05/25/19 09:27 Dose: Not Given Silver Sulfadiazine (Silvadene -) 1 applic TP DAILY [facility] Last Admin: 05/25/19 09:26 Dose: 1 applic Sodium Hypochlorite (Dakin's Solution 0.25% (Half-Strength) -) 1 applic TP DAILY [facility] Last Admin: 05/25/19 09:27 Dose: 1 applic Tramadol HCl (Ultram -) 50 mg PO Q8H PRN PRN Reason: PAIN LEVEL 7 - 10 - Objective Vital Signs: Vital Signs Temperature 97.7 F 05/26/19 06:00 Pulse Rate 93 H 05/26/19 06:00 Respiratory Rate 20 05/26/19 06:00 Blood Pressure 96/51 L 05/26/19 06:00 O2 Sat by Pulse Oximetry (%) 100 05/25/19 21:00 Eyes: Yes: WNL, Conjunctiva Clear, EOM Intact HENT: Yes: WNL, Atraumatic, Normocephalic Neck: Yes: WNL, Supple, Trachea Midline Cardiovascular: Yes: Pulse Irregular, S1, S2 Respiratory: Yes: WNL, Regular, CTA Bilaterally Gastrointestinal: Yes: WNL, Normal Bowel Sounds Genitourinary: Yes: WNL Musculoskeletal: Yes: WNL Extremities: Yes: WNL Edema: No Integumentary: Yes: WNL Neurological: Yes: WNL, Alert, Oriented ...Motor Strength: WNL Psychiatric: Yes: WNL Labs: CBC, BMP 05/26/19 06:10 05/26/19 06:10 INR, PTT INR 1.19 (0.83-1.09) H 05/13/19 06:07 Problem List - Problems (1) Femur fracture, right Code(s): S72.91XA - UNSP FRACTURE OF RIGHT FEMUR, INIT FOR CLOS FX (2) AV fistula occlusion Code(s): T82.898A - OTH COMPLICATION OF VASCULAR PROSTH DEV/GRFT, INIT Qualifiers: Encounter type: initial encounter Qualified Code(s): T82.898A - Other specified complication of vascular prosthetic devices, implants and grafts, initial encounter (3) Anterior epistaxis Code(s): R04.0 - EPISTAXIS (4) Aortic stenosis Code(s): I35.0 - NONRHEUMATIC AORTIC (VALVE) STENOSIS Qualifiers: Cardiac valve disease etiology: nonrheumatic Qualified Code(s): I35.0 - Nonrheumatic aortic (valve) stenosis (5) Atrial fibrillation Code(s): I48.91 - UNSPECIFIED ATRIAL FIBRILLATION Qualifiers: (6) CAD (coronary artery disease) Code(s): I25.10 - ATHSCL HEART DISEASE OF [place] CORONARY ARTERY W/O ANG PCTRS (7) Cellulitis Code(s): L03.90 - CELLULITIS, UNSPECIFIED (8) Cellulitis and abscess of right lower extremity Code(s): L03.115 - CELLULITIS OF RIGHT LOWER LIMB; L02.415 - CUTANEOUS ABSCESS OF RIGHT LOWER LIMB (9) Congestive heart failure (CHF) Code(s): I50.9 - HEART FAILURE, UNSPECIFIED Qualifiers: Heart failure type: unspecified Heart failure chronicity: acute on chronic Qualified Code(s): I50.9 - Heart failure, unspecified (10) Diabetes Code(s): E11.9 - TYPE 2 DIABETES MELLITUS WITHOUT COMPLICATIONS (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, managed as type 1 Code(s): E10.9 - TYPE 1 DIABETES MELLITUS WITHOUT COMPLICATIONS (12) Diabetic acetonemia Code(s): E10.10 - TYPE 1 DIABETES MELLITUS WITH KETOACIDOSIS WITHOUT COMA (13) Diabetic foot ulcer Code(s): E11.621 - TYPE 2 DIABETES MELLITUS WITH FOOT ULCER; L97.509 - NON- PRESSURE CHRONIC ULCER OTH PRT UNSP FOOT W UNSP SEVERITY Qualifiers: Laterality: right (14) ESRD (end stage renal disease) on dialysis Code(s): N18.6 - END STAGE RENAL DISEASE; Z99.2 - DEPENDENCE ON RENAL DIALYSIS (15) Epistaxis Code(s): R04.0 - EPISTAXIS (16) Fever Code(s): R50.9 - FEVER, UNSPECIFIED (17) H/O heart artery stent Code(s): Z95.5 - PRESENCE OF CORONARY ANGIOPLASTY IMPLANT AND GRAFT (18) Hip pain, right Code(s): M25.551 - PAIN IN RIGHT HIP (19) Hyperlipidemia Code(s): E78.5 - HYPERLIPIDEMIA, UNSPECIFIED Qualifiers: Hyperlipidemia type: pure hypercholesterolemia Qualified Code(s): E78.00 - Pure hypercholesterolemia, unspecified; E78.0 - Pure hypercholesterolemia (20) Hyperparathyroidism Code(s): E21.3 - HYPERPARATHYROIDISM, UNSPECIFIED (21) 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 (22) Hypertension Code(s): I10 - ESSENTIAL (PRIMARY) HYPERTENSION Qualifiers: Hypertension type: essential hypertension Qualified Code(s): I10 - Essential (primary) hypertension (23) Hypotension Code(s): I95.9 - HYPOTENSION, UNSPECIFIED (24) Hypothyroid Code(s): E03.9 - HYPOTHYROIDISM, UNSPECIFIED Qualifiers: (25) Lower GI bleed Code(s): K92.2 - GASTROINTESTINAL HEMORRHAGE, UNSPECIFIED (26) Penicillin allergy Code(s): Z88.0 - ALLERGY STATUS TO PENICILLIN (27) Pneumonia Code(s): J18.9 - PNEUMONIA, UNSPECIFIED ORGANISM (28) Pressure ulcer of foot Code(s): L89.899 - PRESSURE ULCER OF OTHER SITE, UNSPECIFIED STAGE (29) Renal dialysis status Code(s): Z99.2 - DEPENDENCE ON RENAL DIALYSIS (30) Right ventricular dysfunction Code(s): I51.9 - HEART DISEASE, UNSPECIFIED (31) S/P hip replacement Code(s): Z96.649 - PRESENCE OF UNSPECIFIED ARTIFICIAL HIP JOINT (32) Sepsis Code(s): A41.9 - SEPSIS, UNSPECIFIED ORGANISM Qualifiers: Sepsis type: sepsis due to unspecified organism Qualified Code(s): A41.9 - Sepsis, unspecified organism (33) Severe protein-calorie malnutrition Code(s): E43 - UNSPECIFIED SEVERE PROTEIN-CALORIE MALNUTRITION (34) Stenosis of AV fistula Code(s): T82.858A - STENOSIS OF OTHER VASCULAR PROSTH DEV/GRFT, INIT Qualifiers: Encounter type: initial encounter Qualified Code(s): T82.858A - Stenosis of other vascular prosthetic devices, implants and grafts, initial encounter (35) Systolic and diastolic CHF w/reduced LV function, NYHA class 4 Code(s): I50.40 - UNSP COMBINED SYSTOLIC AND DIASTOLIC (CONGESTIVE) HRT FAIL (36) Tachycardia Code(s): R00.0 - TACHYCARDIA, UNSPECIFIED (37) Thrombocytopenia Code(s): D69.6 - THROMBOCYTOPENIA, UNSPECIFIED (38) Venous (peripheral) insufficiency Code(s): I87.2 - VENOUS INSUFFICIENCY (CHRONIC) (PERIPHERAL) Assessment/Plan - Problems (1) Systolic CHF Assessment/Plan: On metoprolol ER for systolic CHF and AF. Consider ACEI (systolic CHF; DM), if BP allows. Code(s): I50.20 - UNSPECIFIED SYSTOLIC (CONGESTIVE) HEART FAILURE (2) Femur fracture, right Assessment/Plan: Plans for rehabilitation; pt is hopeful progress will be made, and surgery can be done in the future "so I can stand and walk again". Code(s): S72.91XA - UNSP FRACTURE OF RIGHT FEMUR, INIT FOR CLOS FX (3) Hyponatremia Assessment/Plan: Improving ; now 134 Code(s): E87.1 - HYPO-OSMOLALITY AND HYPONATREMIA (4) Aortic stenosis Assessment/Plan: mild-moderate , with mildly reduced LVEF, moderate-severely reduced RVEF, and severe pulmonary HTN on 01/2019 ECHO. On metorprolol for AF, HTN. Code(s): I35.0 - NONRHEUMATIC AORTIC (VALVE) STENOSIS Qualifiers: Cardiac valve disease etiology: nonrheumatic Qualified Code(s): I35.0 - Nonrheumatic aortic (valve) stenosis (5) Atrial fibrillation Assessment/Plan: on metoprolol for HR control (may change to ER for easier compliance). Systemic anticoagulation (e.g. DOAC) unless contraindications exist. Code(s): I48.91 - UNSPECIFIED ATRIAL FIBRILLATION Qualifiers: (6) CAD (coronary artery disease) Code(s): I25.10 - ATHSCL HEART DISEASE OF [place] CORONARY ARTERY W/O ANG PCTRS (7) Hypertension Code(s): I10 - ESSENTIAL (PRIMARY) HYPERTENSION Qualifiers: Hypertension type: essential hypertension Qualified Code(s): I10 - Essential (primary) hypertension (8) Severe protein-calorie malnutrition Code(s): E43 - UNSPECIFIED SEVERE PROTEIN-CALORIE MALNUTRITION (9) Anemia Code(s): D64.9 - ANEMIA, UNSPECIFIED (10) ESRD (end stage renal disease) Code(s): N18.6 - END STAGE RENAL DISEASE (11) Diabetes Code(s): E11.9 - TYPE 2 DIABETES MELLITUS WITHOUT COMPLICATIONS
[2019-05-26] MEDS: POLYETHYLENE GLYCOL 3350 119 GM BTL PO SCH (10:27)
[2019-05-26] MEDS: SODIUM HYPOCHLORITE 0.25%- 473 ML BULK BOTTLE TP SCH (10:28)
[2019-05-26] MEDS: SILVER SULFADIAZINE 1% TOP CREAM 50 GM JAR TP SCH (10:29)
--- NOTE | 2019-05-26 13:03 | PN ---
Progress Note (short form) - Note Progress Note: Renal follow up for ESRD on HD Seen and examined at the bedside. has pain in leg with movement last dialysis was sunday. no sob, chest pain, fever, chills, N/V/D Vital Signs Temperature 97.7 F 05/26/19 06:00 Pulse Rate 93 H 05/26/19 06:00 Respiratory Rate 20 05/26/19 06:00 Blood Pressure 96/51 L 05/26/19 06:00 O2 Sat by Pulse Oximetry (%) 100 05/25/19 21:00 Intake & Output 05/23/19 05/24/19 05/25/19 05/26/19 23:59 23:59 23:59 23:59 Intake Total 150 400 300 200 Balance 150 400 300 200 Weight 63.095 kg 65.045 kg 65.499 kg 63.684 kg NAD awake and alert CBC, BMP 05/26/19 06:10 05/26/19 06:10 Current Medications Acetaminophen (Tylenol -) 650 mg PO Q6H PRN PRN Reason: PAIN OR FEVER Albuterol Sulfate (Ventolin 0.083% Nebulizer Soln -) 1 amp NEB Q4H PRN PRN Reason: SHORT OF BREATH/WHEEZING Last Admin: 05/25/19 21:14 Dose: 1 amp Docusate Sodium (Colace -) 300 mg PO HS [facility] Last Admin: 05/25/19 21:32 Dose: 300 mg Heparin Sodium (Porcine) (Heparin -) 5,000 unit SQ TID [facility] Last Admin: 05/26/19 05:31 Dose: Not Given Insulin Aspart (Novolog Vial Sliding Scale -) 1 vial SQ ACHS [facility]; Protocol Last Admin: 05/26/19 12:19 Dose: Not Given Levothyroxine Sodium (Synthroid -) 150 mcg PO DAILY@0700 [facility] Last Admin: 05/26/19 06:21 Dose: 150 mcg Metoprolol Succinate (Toprol Xl -) 50 mg PO DAILY [facility] Last Admin: 05/26/19 10:27 Dose: 50 mg Polyethylene Glycol (Miralax (For Daily Use) -) 17 gm PO DAILY [facility] Last Admin: 05/26/19 10:27 Dose: Not Given Silver Sulfadiazine (Silvadene -) 1 applic TP DAILY [facility] Last Admin: 05/26/19 10:29 Dose: 1 applic Sodium Hypochlorite (Dakin's Solution 0.25% (Half-Strength) -) 1 applic TP DAILY [facility] Last Admin: 05/26/19 10:28 Dose: 1 applic Tramadol HCl (Ultram -) 50 mg PO Q8H PRN PRN Reason: PAIN LEVEL 7 - 10 84 year old woman with history of ESRD on HD, CHF, CAD, hypertension who presented [facility] s/p fall with femur fracture. 1. ESRD on HD 2. Femur fracture 3. Hx of HF, not acutely decompensated 4. CAD 5. Hypertension no acute need for dialysis today. Next HD planned for tomorrow. Maintain renal diet and 1.2L fluid restriction. Pain control outpatient rehab placement pending. Intermittent compression stockings ordered for LE for DVT prophylaxis Thank you Kenny Yeboah DO
[2019-05-26] MEDS: ALBUTEROL SO4 0.083% IH SOL 2.5 MG/3 ML VIAL.NEB. NEB PRN (20:40)
[2019-05-26] MEDS: traMADol HCL 50 MG TABLET PO PRN (21:30)
[2019-05-26] MEDS: DOCUSATE SODIUM 100 MG CAPSULE (FP) PO SCH (21:31)
[2019-05-26] MEDS: ACETAMINOPHEN 325 MG TABLET (FP) PO PRN (23:13)
[2019-05-27] MEDS: HEPARIN NA (PORCINE) 5,000 UNITS/ML 1ML VIAL SQ SCH ×4 (06:18→22:35)
[2019-05-27] MEDS: INSULIN SLIDING SCALE (NOVOLOG) 1 VIAL SQ SCH ×5 (06:18→22:27)
[2019-05-27] MEDS: LEVOTHYROXINE NA 75 MCG TABLET (FP) PO SCH (06:18)
--- NOTE | 2019-05-27 08:31 | PN ---
Progress Note (short form) - Note Progress Note: awaiting placement to snf referrals sent to [facility] patient stable no acute pain no acute events overnight hd per renal Problem List - Problems (1) Anemia Code(s): D64.9 - ANEMIA, UNSPECIFIED (2) ESRD (end stage renal disease) Code(s): N18.6 - END STAGE RENAL DISEASE (3) Femur fracture, right Code(s): S72.91XA - UNSP FRACTURE OF RIGHT FEMUR, INIT FOR CLOS FX (4) Hyponatremia Code(s): E87.1 - HYPO-OSMOLALITY AND HYPONATREMIA (5) Systolic CHF Code(s): I50.20 - UNSPECIFIED SYSTOLIC (CONGESTIVE) HEART FAILURE (6) Atrial fibrillation Code(s): I48.91 - UNSPECIFIED ATRIAL FIBRILLATION Qualifiers: (7) Diabetes Code(s): E11.9 - TYPE 2 DIABETES MELLITUS WITHOUT COMPLICATIONS (8) H/O heart artery stent Code(s): Z95.5 - PRESENCE OF CORONARY ANGIOPLASTY IMPLANT AND GRAFT
[2019-05-27 08:41] LABS: HEMOGLOBIN 9.1 GM/dL (10.7-15.3); MCH 34.7 pg (25.7-33.7); MCHC 31.4 g/dl (32.0-36.0); MEAN CELL VOLUME 110.4 fl (80-96); MEAN PLT VOLUME 8.2 fl (7.5-11.1); PLATELET COUNT 106 K/MM3 (134-434); RBC 2.63 M/mm3 (3.60-5.2); RDW 16.6 % (11.6-15.6)
[2019-05-27] MEDS ORDERED: SODIUM CHLORIDE 250 ML IV PRN (09:00)
[2019-05-27] MEDS ORDERED: EPOETIN ALFA 10,000 UNIT/1 ML VIAL IVPUSH ONE (09:00)
[2019-05-27 09:12] LABS: BLOOD UREA NITROGEN 32.4 mg/dL (7-18); CALCIUM 8.6 mg/dL (8.5-10.1); CREATININE 4.6 mg/dL (0.55-1.3); PHOSPHOROUS 4.8 mg/dL (2.5-4.9); POTASSIUM 4.6 mmol/L (3.5-5.1)
[2019-05-27] MEDS ORDERED: INSULIN (NOVOLOG) ASPART 100 UNITS/ML 10ML VIAL ONE (11:46)
[2019-05-27] MEDS: traMADol HCL 50 MG TABLET PO PRN (11:50)
[2019-05-27] MEDS: POLYETHYLENE GLYCOL 3350 119 GM BTL PO SCH (11:50)
[2019-05-27] MEDS: SODIUM HYPOCHLORITE 0.25%- 473 ML BULK BOTTLE TP SCH (11:51)
[2019-05-27] MEDS: SILVER SULFADIAZINE 1% TOP CREAM 50 GM JAR TP SCH (11:52)
--- NOTE | 2019-05-27 14:39 | PN ---
Progress Note (short form) - Note Progress Note: Renal follow up for ESRD on HD Seen and examined at the bedside. s/p dialysis this am. Went well, offered no acute complaints unable to tolerate intermittent compression stockings due to pain denies any chest pain or sob. Vital Signs Temperature 97.8 F 05/27/19 12:25 Pulse Rate 93 H 05/27/19 12:25 Respiratory Rate 14 05/27/19 12:25 Blood Pressure 111/59 L 05/27/19 12:25 O2 Sat by Pulse Oximetry (%) 99 05/26/19 09:00 Intake & Output 05/24/19 05/25/19 05/26/19 05/27/19 23:59 23:59 23:59 23:59 Intake Total 400 300 720 718 Output Total 2500 Balance 400 300 720 -1782 Weight 65.045 kg 65.499 kg 63.684 kg 64.637 kg NAD awake and alert CBC, BMP 05/27/19 08:00 05/27/19 08:00 Current Medications Acetaminophen (Tylenol -) 650 mg PO Q6H PRN PRN Reason: PAIN OR FEVER Last Admin: 05/26/19 23:13 Dose: 650 mg Albuterol Sulfate (Ventolin 0.083% Nebulizer Soln -) 1 amp NEB Q4H PRN PRN Reason: SHORT OF BREATH/WHEEZING Last Admin: 05/26/19 20:40 Dose: 1 amp Docusate Sodium (Colace -) 300 mg PO HS [facility] Last Admin: 05/26/19 21:31 Dose: 300 mg Heparin Sodium (Porcine) (Heparin -) 5,000 unit SQ TID [facility] Last Admin: 05/27/19 14:11 Dose: 5,000 unit Insulin Aspart (Novolog Vial Sliding Scale -) 1 vial SQ ACHS [facility]; Protocol Last Admin: 05/27/19 14:10 Dose: Not Given Levothyroxine Sodium (Synthroid -) 150 mcg PO DAILY@0700 [facility] Last Admin: 05/27/19 06:18 Dose: 150 mcg Metoprolol Succinate (Toprol Xl -) 50 mg PO DAILY [facility] Last Admin: 05/27/19 11:51 Dose: 50 mg Polyethylene Glycol (Miralax (For Daily Use) -) 17 gm PO DAILY [facility] Last Admin: 05/27/19 11:50 Dose: 17 gm Silver Sulfadiazine (Silvadene -) 1 applic TP DAILY [facility] Last Admin: 05/27/19 11:52 Dose: 1 applic Sodium Hypochlorite (Dakin's Solution 0.25% (Half-Strength) -) 1 applic TP DAILY [facility] Last Admin: 05/27/19 11:51 Dose: 1 applic Tramadol HCl (Ultram -) 50 mg PO Q8H PRN PRN Reason: PAIN LEVEL 7 - 10 Last Admin: 05/27/19 11:50 Dose: 50 mg 84 year old woman with history of ESRD on HD, CHF, CAD, hypertension who presented [place] s/p fall with femur fracture. 1. ESRD on HD 2. Femur fracture 3. Hx of HF, not acutely decompensated 4. CAD 5. Hypertension Tolerated dialysis wel this am Maintain renal diet and 1.2L fluid restriction. Pain control outpatient rehab placement pending. DVT prophylaxis with Heparin SC Thank you Kenny Yeboah DO
[2019-05-27] MEDS: DOCUSATE SODIUM 100 MG CAPSULE (FP) PO SCH (22:37)
--- NOTE | 2019-05-28 02:16 | PN ---
Progress Note, Physician Chief Complaint: Pt A&Ox3; no chest pain or dyspnea; ongoing intermittent RLE pain on movement. History of Present Illness: Ms. Joseph is an 84 yo white female with pmh of ESRD on HD (TTS), diastolic CHF , Afib, CAD, HTN and R hip replacement by Dr. Tinoco who presents to the ED 2 days after a fall in [facility]. Pt states she was seated on an air mattress, fell with right femur pain however was not assessed or x rayed until last night. Pt describes significant pain in the right femur with deformity, however , she is able to move her toes and has full sensation in her right distal ext. She denies chest pain; she does become dysneic on mild exertion. - Current Medication List Current Medications: Active Medications Acetaminophen (Tylenol -) 650 mg PO Q6H PRN PRN Reason: PAIN OR FEVER Last Admin: 05/26/19 23:13 Dose: 650 mg Albuterol Sulfate (Ventolin 0.083% Nebulizer Soln -) 1 amp NEB Q4H PRN PRN Reason: SHORT OF BREATH/WHEEZING Last Admin: 05/26/19 20:40 Dose: 1 amp Docusate Sodium (Colace -) 300 mg PO HS [facility] Last Admin: 05/27/19 22:37 Dose: 300 mg Heparin Sodium (Porcine) (Heparin -) 5,000 unit SQ TID [facility] Last Admin: 05/27/19 22:35 Dose: 5,000 unit Insulin Aspart (Novolog Vial Sliding Scale -) 1 vial SQ ACHS [facility]; Protocol Last Admin: 05/27/19 22:27 Dose: Not Given Levothyroxine Sodium (Synthroid -) 150 mcg PO DAILY@0700 [facility] Last Admin: 05/27/19 06:18 Dose: 150 mcg Metoprolol Succinate (Toprol Xl -) 50 mg PO DAILY [facility] Last Admin: 05/27/19 11:51 Dose: 50 mg Polyethylene Glycol (Miralax (For Daily Use) -) 17 gm PO DAILY [facility] Last Admin: 05/27/19 11:50 Dose: 17 gm Silver Sulfadiazine (Silvadene -) 1 applic TP DAILY [facility] Last Admin: 05/27/19 11:52 Dose: 1 applic Sodium Hypochlorite (Dakin's Solution 0.25% (Half-Strength) -) 1 applic TP DAILY [facility] Last Admin: 10/01/19 11:51 Dose: 1 applic Tramadol HCl (Ultram -) 50 mg PO Q8H PRN PRN Reason: PAIN LEVEL 7 - 10 Last Admin: 05/27/19 11:50 Dose: 50 mg - Objective Vital Signs: Vital Signs Temperature 98.7 F 05/27/19 17:22 Pulse Rate 97 H 05/27/19 17:22 Respiratory Rate 20 05/27/19 17:22 Blood Pressure 101/54 L 05/27/19 17:22 O2 Sat by Pulse Oximetry (%) 100 05/27/19 09:00 Constitutional: Yes: Calm Eyes: Yes: WNL HENT: Yes: WNL Neck: Yes: WNL Cardiovascular: Yes: S1 (varies in intensity), S2 Respiratory: Yes: Regular Gastrointestinal: Yes: Soft ...Rectal Exam: Yes: Deferred Genitourinary: Yes: Other (on hemodialysis 3x/wk). No: Anuria Breast(s): Yes: WNL Musculoskeletal: Yes: Muscle Weakness Extremities: Yes: Cool Edema: No Peripheral Pulses WNL: Yes Integumentary: Yes: Other (left UE AV fistula with thrilll) Neurological: Yes: WNL Psychiatric: Yes: WNL Labs: CBC, BMP 05/27/19 08:00 05/27/19 08:00 INR, PTT INR 1.19 (0.83-1.09) H 05/13/19 06:07 Problem List - Problems (1) Systolic CHF Assessment/Plan: On metoprolol ER for systolic CHF and AF. Consider ACEI (systolic CHF; DM), if BP allows. On hemodialysis for ESRD. Code(s): I50.20 - UNSPECIFIED SYSTOLIC (CONGESTIVE) HEART FAILURE (2) Femur fracture, right Assessment/Plan: F/u with orthopedist. Code(s): S72.91XA - UNSP FRACTURE OF RIGHT FEMUR, INIT FOR CLOS FX (3) Hyponatremia Assessment/Plan: Improving ; now 134 Code(s): E87.1 - HYPO-OSMOLALITY AND HYPONATREMIA (4) Aortic stenosis Assessment/Plan: mild-moderate , with mildly reduced LVEF, moderate-severely reduced RVEF, and severe pulmonary HTN on 01/2019 ECHO. On metorprolol for AF, HTN. Start lisinopril. Code(s): I35.0 - NONRHEUMATIC AORTIC (VALVE) STENOSIS Qualifiers: Cardiac valve disease etiology: nonrheumatic Qualified Code(s): I35.0 - Nonrheumatic aortic (valve) stenosis (5) Atrial fibrillation Assessment/Plan: on metoprolol for HR control (may change to ER for easier compliance). Recommend systemic anticoagulation (apixaban) unless contraindications exist. Code(s): I48.91 - UNSPECIFIED ATRIAL FIBRILLATION Qualifiers: (6) CAD (coronary artery disease) Code(s): I25.10 - ATHSCL HEART DISEASE OF [place] CORONARY ARTERY W/O ANG PCTRS (7) Hypertension Code(s): I10 - ESSENTIAL (PRIMARY) HYPERTENSION Qualifiers: Hypertension type: essential hypertension Qualified Code(s): I10 - Essential (primary) hypertension (8) Severe protein-calorie malnutrition Code(s): E43 - UNSPECIFIED SEVERE PROTEIN-CALORIE MALNUTRITION (9) Anemia Code(s): D64.9 - ANEMIA, UNSPECIFIED (10) ESRD (end stage renal disease) Assessment/Plan: On hemodialysis per cake batter mixer. Code(s): N18.6 - END STAGE RENAL DISEASE (11) Diabetes Code(s): E11.9 - TYPE 2 DIABETES MELLITUS WITHOUT COMPLICATIONS
[2019-05-28] MEDS: INSULIN SLIDING SCALE (NOVOLOG) 1 VIAL SQ SCH ×2 (06:31→11:56)
[2019-05-28] MEDS: LEVOTHYROXINE NA 75 MCG TABLET (FP) PO SCH (06:31)
[2019-05-28] MEDS: HEPARIN NA (PORCINE) 5,000 UNITS/ML 1ML VIAL SQ SCH ×2 (06:31→14:28)
[2019-05-28] MEDS ORDERED: PT OWN MED DRAWER 7, Y5N ONE (09:56)
[2019-05-28] MEDS: traMADol HCL 50 MG TABLET PO PRN (10:01)
[2019-05-28] MEDS: SILVER SULFADIAZINE 1% TOP CREAM 50 GM JAR TP SCH (10:02)
[2019-05-28] MEDS: POLYETHYLENE GLYCOL 3350 119 GM BTL PO SCH (10:02)
[2019-05-28] MEDS: SODIUM HYPOCHLORITE 0.25%- 473 ML BULK BOTTLE TP SCH (10:02)
[2019-05-28 10:03] VITALS: BP 116/64; PULSE 96; TEMP 98.1
--- NOTE | 2019-05-28 11:08 | PN ---
Progress Note (short form) - Note Progress Note: AWAKE ALERT NAD COMFORTABLE HD PER RENAL AWAITING PLACEMENT TO SNF Problem List - Problems (1) Anemia Code(s): D64.9 - ANEMIA, UNSPECIFIED (2) ESRD (end stage renal disease) Code(s): N18.6 - END STAGE RENAL DISEASE (3) Femur fracture, right Code(s): S72.91XA - UNSP FRACTURE OF RIGHT FEMUR, INIT FOR CLOS FX (4) Hyponatremia Code(s): E87.1 - HYPO-OSMOLALITY AND HYPONATREMIA (5) Systolic CHF Code(s): I50.20 - UNSPECIFIED SYSTOLIC (CONGESTIVE) HEART FAILURE (6) Atrial fibrillation Code(s): I48.91 - UNSPECIFIED ATRIAL FIBRILLATION Qualifiers: (7) Diabetes Code(s): E11.9 - TYPE 2 DIABETES MELLITUS WITHOUT COMPLICATIONS (8) H/O heart artery stent Code(s): Z95.5 - PRESENCE OF CORONARY ANGIOPLASTY IMPLANT AND GRAFT
--- NOTE | 2019-05-28 11:19 | PN ---
Progress Note, Physician History of Present Illness: 83 yo female pmh of ESRD on HD (TTS), CHF, Afib, CAD, HTN and R hip replacement by Dr. Tinoco presents to the ED 2 days after a fall in [facility]. Pt states she was seated on an air mattress, fell with right femur pain however was not assessed or x rayed until last night. Pt describes significant pain in the right femur with deformity, however, she is able to move her toes and has full sensation in her right distal ext. Pt denies recent illness, AC, fals in the past, CP, SOB, back pain, changes in bowel or bladder habits, abdominal pain PMH Atrial fibrillation Bare metal stent of ostial LCx April 01, 2015 Dr. Elizabeth CAD - mLAD 30% , oLCx 90%, RPDA 40% March 05, 2015 Dr. Elizabeth Diabetes mellitus, type II 1997 Dialysis 2010 End stage renal disease Hypertension Hypothyroidism Mildly reduced EF 48% February 2016 Moderate mean PG 23 mmHg February 2016 Severe GI bleed 2006 - Current Medication List Current Medications: Active Medications Acetaminophen (Tylenol -) 650 mg PO Q6H PRN PRN Reason: PAIN OR FEVER Last Admin: 05/26/19 23:13 Dose: 650 mg Albuterol Sulfate (Ventolin 0.083% Nebulizer Soln -) 1 amp NEB Q4H PRN PRN Reason: SHORT OF BREATH/WHEEZING Last Admin: 05/26/19 20:40 Dose: 1 amp Docusate Sodium (Colace -) 300 mg PO HS [facility] Last Admin: 05/27/19 22:37 Dose: 300 mg Heparin Sodium (Porcine) (Heparin -) 5,000 unit SQ TID [facility] Last Admin: 05/28/19 06:31 Dose: 5,000 unit Insulin Aspart (Novolog Vial Sliding Scale -) 1 vial SQ ACHS [facility]; Protocol Last Admin: 05/28/19 06:31 Dose: Not Given Levothyroxine Sodium (Synthroid -) 150 mcg PO DAILY@0700 [facility] Last Admin: 05/28/19 06:31 Dose: 150 mcg Metoprolol Succinate (Toprol Xl -) 50 mg PO DAILY [facility] Last Admin: 05/28/19 10:01 Dose: 50 mg Polyethylene Glycol (Miralax (For Daily Use) -) 17 gm PO DAILY [facility] Last Admin: 05/28/19 10:02 Dose: Not Given Silver Sulfadiazine (Silvadene -) 1 applic TP DAILY [facility] Last Admin: 05/28/19 10:02 Dose: 1 applic Sodium Hypochlorite (Dakin's Solution 0.25% (Half-Strength) -) 1 applic TP DAILY [facility] Last Admin: 05/28/19 10:02 Dose: 1 applic Tramadol HCl (Ultram -) 50 mg PO Q8H PRN PRN Reason: PAIN LEVEL 7 - 10 Last Admin: 05/28/19 10:01 Dose: 50 mg - Objective Vital Signs: Vital Signs Temperature 98.1 F 05/28/19 10:00 Pulse Rate 96 H 05/28/19 10:00 Respiratory Rate 16 05/28/19 10:00 Blood Pressure 116/64 05/28/19 10:00 O2 Sat by Pulse Oximetry (%) 98 05/28/19 10:03 Eyes: Yes: WNL, Conjunctiva Clear, EOM Intact HENT: Yes: WNL, Atraumatic, Normocephalic Neck: Yes: WNL, Supple, Trachea Midline Cardiovascular: Yes: Pulse Irregular Respiratory: Yes: WNL, Regular, CTA Bilaterally Gastrointestinal: Yes: WNL, Normal Bowel Sounds Genitourinary: Yes: WNL Musculoskeletal: Yes: WNL Edema: No Integumentary: Yes: WNL Neurological: Yes: WNL, Alert, Oriented ...Motor Strength: WNL Psychiatric: Yes: WNL Labs: CBC, BMP 05/27/19 08:00 05/27/19 08:00 INR, PTT INR 1.19 (0.83-1.09) H 05/13/19 06:07 Problem List - Problems (1) Femur fracture, right Code(s): S72.91XA - UNSP FRACTURE OF RIGHT FEMUR, INIT FOR CLOS FX (2) AV fistula occlusion Code(s): T82.898A - OTH COMPLICATION OF VASCULAR PROSTH DEV/GRFT, INIT Qualifiers: Encounter type: initial encounter Qualified Code(s): T82.898A - Other specified complication of vascular prosthetic devices, implants and grafts, initial encounter (3) Anterior epistaxis Code(s): R04.0 - EPISTAXIS (4) Aortic stenosis Code(s): I35.0 - NONRHEUMATIC AORTIC (VALVE) STENOSIS Qualifiers: Cardiac valve disease etiology: nonrheumatic Qualified Code(s): I35.0 - Nonrheumatic aortic (valve) stenosis (5) Atrial fibrillation Code(s): I48.91 - UNSPECIFIED ATRIAL FIBRILLATION Qualifiers: (6) CAD (coronary artery disease) Code(s): I25.10 - ATHSCL HEART DISEASE OF [place] CORONARY ARTERY W/O ANG PCTRS (7) Cellulitis Code(s): L03.90 - CELLULITIS, UNSPECIFIED (8) Cellulitis and abscess of right lower extremity Code(s): L03.115 - CELLULITIS OF RIGHT LOWER LIMB; L02.415 - CUTANEOUS ABSCESS OF RIGHT LOWER LIMB (9) Congestive heart failure (CHF) Code(s): I50.9 - HEART FAILURE, UNSPECIFIED Qualifiers: Heart failure type: unspecified Heart failure chronicity: acute on chronic Qualified Code(s): I50.9 - Heart failure, unspecified (10) Diabetes Code(s): E11.9 - TYPE 2 DIABETES MELLITUS WITHOUT COMPLICATIONS (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, managed as type 1 Code(s): E10.9 - TYPE 1 DIABETES MELLITUS WITHOUT COMPLICATIONS (12) Diabetic acetonemia Code(s): E10.10 - TYPE 1 DIABETES MELLITUS WITH KETOACIDOSIS WITHOUT COMA (13) Diabetic foot ulcer Code(s): E11.621 - TYPE 2 DIABETES MELLITUS WITH FOOT ULCER; L97.509 - NON- PRESSURE CHRONIC ULCER OTH PRT UNSP FOOT W UNSP SEVERITY Qualifiers: Laterality: right (14) ESRD (end stage renal disease) on dialysis Code(s): N18.6 - END STAGE RENAL DISEASE; Z99.2 - DEPENDENCE ON RENAL DIALYSIS (15) Epistaxis Code(s): R04.0 - EPISTAXIS (16) Fever Code(s): R50.9 - FEVER, UNSPECIFIED (17) H/O heart artery stent Code(s): Z95.5 - PRESENCE OF CORONARY ANGIOPLASTY IMPLANT AND GRAFT (18) Hip pain, right Code(s): M25.551 - PAIN IN RIGHT HIP (19) Hyperlipidemia Code(s): E78.5 - HYPERLIPIDEMIA, UNSPECIFIED Qualifiers: Hyperlipidemia type: pure hypercholesterolemia Qualified Code(s): E78.00 - Pure hypercholesterolemia, unspecified; E78.0 - Pure hypercholesterolemia (20) Hyperparathyroidism Code(s): E21.3 - HYPERPARATHYROIDISM, UNSPECIFIED (21) 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 (22) Hypertension Code(s): I10 - ESSENTIAL (PRIMARY) HYPERTENSION Qualifiers: Hypertension type: essential hypertension Qualified Code(s): I10 - Essential (primary) hypertension (23) Hypotension Code(s): I95.9 - HYPOTENSION, UNSPECIFIED (24) Hypothyroid Code(s): E03.9 - HYPOTHYROIDISM, UNSPECIFIED Qualifiers: (25) Lower GI bleed Code(s): K92.2 - GASTROINTESTINAL HEMORRHAGE, UNSPECIFIED (26) Penicillin allergy Code(s): Z88.0 - ALLERGY STATUS TO PENICILLIN (27) Pneumonia Code(s): J18.9 - PNEUMONIA, UNSPECIFIED ORGANISM (28) Pressure ulcer of foot Code(s): L89.899 - PRESSURE ULCER OF OTHER SITE, UNSPECIFIED STAGE (29) Renal dialysis status Code(s): Z99.2 - DEPENDENCE ON RENAL DIALYSIS (30) Right ventricular dysfunction Code(s): I51.9 - HEART DISEASE, UNSPECIFIED (31) S/P hip replacement Code(s): Z96.649 - PRESENCE OF UNSPECIFIED ARTIFICIAL HIP JOINT (32) Sepsis Code(s): A41.9 - SEPSIS, UNSPECIFIED ORGANISM Qualifiers: Sepsis type: sepsis due to unspecified organism Qualified Code(s): A41.9 - Sepsis, unspecified organism (33) Severe protein-calorie malnutrition Code(s): E43 - UNSPECIFIED SEVERE PROTEIN-CALORIE MALNUTRITION (34) Stenosis of AV fistula Code(s): T82.858A - STENOSIS OF OTHER VASCULAR PROSTH DEV/GRFT, INIT Qualifiers: Encounter type: initial encounter Qualified Code(s): T82.858A - Stenosis of other vascular prosthetic devices, implants and grafts, initial encounter (35) Systolic and diastolic CHF w/reduced LV function, NYHA class 4 Code(s): I50.40 - UNSP COMBINED SYSTOLIC AND DIASTOLIC (CONGESTIVE) HRT FAIL (36) Tachycardia Code(s): R00.0 - TACHYCARDIA, UNSPECIFIED (37) Thrombocytopenia Code(s): D69.6 - THROMBOCYTOPENIA, UNSPECIFIED (38) Venous (peripheral) insufficiency Code(s): I87.2 - VENOUS INSUFFICIENCY (CHRONIC) (PERIPHERAL) Assessment/Plan - Problems (1) Systolic CHF Assessment/Plan: On metoprolol ER for systolic CHF and AF. Consider ACEI (systolic CHF; DM), if BP allows. On hemodialysis for ESRD. Code(s): I50.20 - UNSPECIFIED SYSTOLIC (CONGESTIVE) HEART FAILURE (2) Femur fracture, right Assessment/Plan: F/u with orthopedist. Code(s): S72.91XA - UNSP FRACTURE OF RIGHT FEMUR, INIT FOR CLOS FX (3) Hyponatremia Assessment/Plan: Improving ; now 134 Code(s): E87.1 - HYPO-OSMOLALITY AND HYPONATREMIA (4) Aortic stenosis Assessment/Plan: mild-moderate , with mildly reduced LVEF, moderate-severely reduced RVEF, and severe pulmonary HTN on 01/2019 ECHO. On metorprolol for AF, HTN. Start lisinopril. Code(s): I35.0 - NONRHEUMATIC AORTIC (VALVE) STENOSIS Qualifiers: Cardiac valve disease etiology: nonrheumatic Qualified Code(s): I35.0 - Nonrheumatic aortic (valve) stenosis (5) Atrial fibrillation Assessment/Plan: on metoprolol for HR control (may change to ER for easier compliance). Recommend systemic anticoagulation (apixaban) unless contraindications exist. Code(s): I48.91 - UNSPECIFIED ATRIAL FIBRILLATION Qualifiers: (6) CAD (coronary artery disease) Code(s): I25.10 - ATHSCL HEART DISEASE OF [place] CORONARY ARTERY W/O ANG PCTRS (7) Hypertension Code(s): I10 - ESSENTIAL (PRIMARY) HYPERTENSION Qualifiers: Hypertension type: essential hypertension Qualified Code(s): I10 - Essential (primary) hypertension (8) Severe protein-calorie malnutrition Code(s): E43 - UNSPECIFIED SEVERE PROTEIN-CALORIE MALNUTRITION (9) Anemia Code(s): D64.9 - ANEMIA, UNSPECIFIED (10) ESRD (end stage renal disease) Assessment/Plan: On hemodialysis per commercial sales representative. Code(s): N18.6 - END STAGE RENAL DISEASE (11) Diabetes Code(s): E11.9 - TYPE 2 DIABETES MELLITUS WITHOUT COMPLICATIONS
[2019-05-28] MEDS: ACETAMINOPHEN 325 MG TABLET (FP) PO PRN (14:27)
[2019-05-28 14:48] VITALS: BMI 19.9
== END 2019-05-28 16:41 | DRG 542 ==
LOC: JER 10:52 → JERBED 15:21 → J8W 17:45
PROVIDERS: ADMIT Family Medicine; ATTEND Family Medicine
PROC: 5A1D70Z Performance of Urinary Filtration, Intermittent, Less than 6 Hours Per Day (ICD-10-PCS; principal; 2019-05-27)
DX: M80.061A Age-related osteoporosis with current pathological fracture, right lower leg, initial encounter for fracture (principal); E43 Unspecified severe protein-calorie malnutrition; N18.6 End stage renal disease; E87.1 Hypo-osmolality and hyponatremia; I50.20 Unspecified systolic (congestive) heart failure; I13.2 Hypertensive heart and chronic kidney disease with heart failure and with stage 5 chronic kidney disease, or end stage renal disease; Z68.1 Body mass index [BMI] 19.9 or less, adult; E11.9 Type 2 diabetes mellitus without complications; I35.0 Nonrheumatic aortic (valve) stenosis; I48.91 Unspecified atrial fibrillation; I25.10 Atherosclerotic heart disease of native coronary artery without angina pectoris; E03.9 Hypothyroidism, unspecified; Z99.2 Dependence on renal dialysis; W19.XXXA Unspecified fall, initial encounter; Y93.9 Activity, unspecified; Y92.128 Other place in nursing home as the place of occurrence of the external cause; Y99.9 Unspecified external cause status
CPT/HCPCS: 36415; 73523-TC-FY; 73552-TC-RT-FY; 73700-TC-RT; 80048; 80053; 82550; 82553; 82565; 82962; 84100; 84443; 84479; 84484; 84520; 85025; 85027; 85610; 85730; 86803; 86850; 86900; 86901; 87081; 87340; 94640; 99282-25; J0131; J0885; J1644

== ENCOUNTER 2019-09-03 21:25 | Inpatient (IN) | payer OTHER, BC ==
--- NOTE | 2019-09-03 21:47 | PDOC ---
Attending Attestation - Resident Resident Name: Nikki Bass - ED Attending Attestation I have performed the following: I have examined & evaluated the patient, The case was reviewed & discussed with the resident, I agree w/resident's findings & plan - HPI HPI: 09/04/19 01:19 see resident hpi - Physicial Exam PE: 09/04/19 01:20 agree with resident exam - Critical Care Time Total Critical Care Time: 90 Critical Care Statement: The care of this patient involved high complexity decision making to prevent further life threatening deterioration of the patient 's condition and/or to evaluate & treat vital organ system(s) failure or risk of failure. - Medical Decision Making 09/04/19 01:20 84-year-old female status post hemodialysis with decreased mental status and hypotension Plan for gentle IV fluid administration due to renal function Blood pressure improved after IV hydration Sisters at the bedside confirming DNR/DNI status Will admit for further management
[2019-09-03 22:12] LABS: BASO % 0.3 % (0-2.0); EOS % 0.5 % (0-4.5); HEMOGLOBIN 9.9 GM/dL (10.7-15.3); MCH 34.9 pg (25.7-33.7); MEAN CELL VOLUME 112.7 fl (80-96); MEAN PLT VOLUME 9.5 fl (7.5-11.1); NEUT % 85.2 % (42.8-82.8); PLATELET COUNT 85 K/MM3 (134-434); RBC 2.84 M/mm3 (3.60-5.2); RDW 20.1 % (11.6-15.6); WHITE BLOOD COUNT 7.3 K/mm3 (4.0-10.0)
[2019-09-03 22:13] LABS: VENOUS PH 7.21 (7.31-7.41)
[2019-09-03 22:18] LABS: VENOUS PC02 71.7 mmHg (38-52)
[2019-09-03 22:26] LABS: INR 1.69 (0.83-1.09)
[2019-09-03 22:29] LABS: ACTIVATED PTT 41.9 SECONDS (25.2-36.5)
--- NOTE | 2019-09-03 22:32 | PDOC ---
History of Present Illness - General Chief Complaint: Altered Mental Status Stated Complaint: ALTERED MENTAL STATUS Time Seen by Provider: 09/03/19 21:46 - History of Present Illness Initial Comments: 09/03/19 23:49 84 yo female pmh of ESRD on HD (TTS), CHF, Afib, CAD, HTN, chronic L leg fracture, from [facility] who presents to the ED with hypotension to 70s/60s and hypoxemia to low 70s after dialysis today. Per sister who arrived the patient has been more lethargic over the past week. On arrival the patient minimally arouses to voice and has pressures of 80s/70s. No further history. Code: DNR/DNI, No central line ROS - unable to obtain PE GENERAL: awake HEAD: No signs of trauma, normocephalic, atraumatic EYES: EOMI, sclera anicteric, conjunctiva clear ENT: dry mucosa NECK: Normal ROM, supple LUNGS: No distress, speaks full sentences, clear to auscultation bilaterally HEART: Regular rate and rhythm, normal S1 and S2, no murmurs, rubs or gallops ABDOMEN: Soft, nontender, No guarding, no rebound. No masses EXTREMITIES : + L leg deformity NEUROLOGICAL: unable to assess SKIN: + L arm fistula, multiple arm bruises, sacral stage 2 decubitus ulcer MDM DDX including but not limited to: hypovolemia vs sepsis vs intracranial pathology vs acs ED Course: 1L started on patient pressures still 87/50 labs, cxr, head ct, ekg Patient sister (power of trade mark attorney) in the ER, provides DNR, DNI paperwork Discussed central line for resusc and pressors she does not wish for central line placement. Attending Dr. Mckee as witness to discussion Labs with anemia, close to baseline BUN/Cr at baseline PCO2 on vbg to 70s trop elevated to 0.32 CXR: with no obvious infiltrate Production Designer Dr. Bolaños covering for Dr. Obinna Cox, consulted, discussed case and recommends fluid resusc, no other recs as patient is to not have central line and is DNR/DNI Will plan for admission for further workup BP now: 100/54 Sister (Laurie): Home: / cell: [phone] uptrending trop doubled Sister called and informed, does not want invasive measures such as cath Nikki Bass, PGY2 Emergency Medicine Past History - Past Medical History Allergies/Adverse Reactions: Allergies Allergy/AdvReac Type Severity Reaction Status Date / Time erythromycin base Allergy Severe Swelling Verified 09/03/19 21:47 Penicillins Allergy Severe Swelling Verified 09/03/19 21:47 verapamil [Verapamil] Allergy Severe Swelling Verified 09/03/19 21:47 aspirin AdvReac Nausea Verified 09/03/19 21:47 peppers Allergy Uncoded 09/03/19 21:47 AQUACEL DRESSING AdvReac Severe Rash Uncoded 09/03/19 21:47 Home Medications: Ambulatory Orders Cinacalcet HCl [Sensipar] 30 mg PO ASDIR 07/22/17 Magnesium Oxide 400 mg PO DAILY 07/22/17 Aspirin Coated [Ecotrin -] 81 mg PO DAILY tablet.ec 08/01/17 Folic Acid/Vit B Complex and C [Dialyvite 800 Tablet] 0.8 mg PO DAILY 01/21/19 Insulin (Novolog 70/30) [Novolog Mix 70/30 Vial -] 8 ml SQ ASDIR 01/21/19 Insulin Sliding Scale [Novolog Vial Sliding Scale -] 6 units SQ AM 01/21/19 Levothyroxine [Synthroid -] 150 mcg PO DAILY@0700 #30 tablet 02/15/19 Metoprolol Tartrate [Lopressor -] 25 mg PO BID #60 tablet 02/15/19 Albuterol 0.083% Nebulizer [place] [Ventolin 0.083% Nebulizer Soln -] 1 amp NEB Q4H PRN amp 05/16/19 Docusate Sodium [Colace -] 300 mg PO HS capsule 05/16/19 Heparin - 5,000 unit SQ TID vial 05/16/19 Insulin Sliding Scale [Novolog Vial Sliding Scale -] 1 vial SQ ACHS units 05/16 Levothyroxine [Synthroid -] 150 mcg PO DAILY@0700 tablet 05/16/19 Levothyroxine [Synthroid -] 150 mcg PO DAILY@0700 tablet 05/16/19 Metoprolol Tartrate [Lopressor -] 25 mg PO BID tablet 05/16/19 Oxycodone HCl [Roxicodone] 5 mg PO QID PRN #90 tablet MDD 4 05/16/19 Silver Sulfadiazine 1% Top Cr [Silvadene -] 1 applic TP DAILY jar 05/16/19 Sodium Hypochlorite [Dakin's Solution 0.25% (Half-Strength) -] 1 applic TP DAILY ml 05/16/19 Cardiac Disorders: Yes (A-FIB 2000) COPD: No CHF: Yes Diabetes: Yes Dialysis: Yes GI Disorders: Yes (ESRD) HTN: Yes Hypercholesterolemia: Yes Thyroid Disease: Yes - Surgical History Cardiac Surgery: Yes Orthopedic Surgery: Yes (Yes; right hip surgery) - Psycho Social/Smoking Cessation Hx Smoking Status: No Smoking History: Unknown if ever smoked Have you smoked in the past 12 months: No Number of Cigarettes Smoked Daily: 0 Information on smoking cessation initiated: No Hx Alcohol Use: No Drug/Substance Use Hx: No Substance Use Type: None Hx Substance Use Treatment: No *Physical Exam - Vital Signs Last Vital Signs Temp Pulse Resp BP Pulse Ox 95.6 F L 76 19 87/63 L 100 09/03/19 22:12 09/03/19 22:12 09/03/19 22:12 09/03/19 22:12 09/03/19 22:12 ED Treatment Course - LABORATORY CBC & Chemistry Diagram: 09/03/19 21:46 09/03/19 21:46 - ADDITIONAL ORDERS Additional order review: Laboratory Results 09/03/19 09/03/19 09/03/19 22:00 21:46 21:46 PT with INR 20.00 H INR 1.69 H PTT (Actin FS) 41.9 H VBG pH 7.21 L POC VBG pCO2 71.7 H* POC VBG pO2 56.0 H VBG HCO3 27.7 VBG O2 Sat (Juan) 78.7 VBG Base Excess -0.7 POC Glucometer 117 09/03/19 09/03/19 22:00 21:46 RBC 2.84 L MCV 112.7 H MCHC 31.0 L RDW 20.1 H MPV 9.5 D Neutrophils % 85.2 H Lymphocytes % 9.0 Monocytes % 5.0 Eosinophils % 0.5 Basophils % 0.3 POC Glucometer 117
[2019-09-03 22:54] LABS: ALBUMIN 1.9 g/dl (3.4-5.0); BILIRUBIN,TOTAL 0.6 mg/dL (0.2-1); BLOOD UREA NITROGEN 21.4 mg/dL (7-18); CALCIUM 9.1 mg/dL (8.5-10.1); CREATININE 2.1 mg/dL (0.55-1.3); POTASSIUM 3.9 mmol/L (3.5-5.1); TOT PROT 6.9 g/dl (6.4-8.2)
[2019-09-03 23:01] LABS: ANISOCYTOSIS 1+; MACROCYTOSIS 3+
[2019-09-03 23:02] LABS: OVALOCYTE FEW; PLATELET ESTIMATE DECREASED; TARGET CELLS 1+
--- NOTE | 2019-09-04 04:39 | HP ---
Admitting History and Physical - Primary Care Physician PCP: Mary Jo Chilel ([facility]) - Admission Chief Complaint: Lethargy, Hypotension, Hypoxia History of Present Illness: This is a 84 y/o woman from [facility] with a PMHx of ESRD (,,), CHF, Afib , CAD, HTN, GIB, Chronic L-Leg Fx. Who presents to the ED from the [facility] for lethargy, hypotension, hypoxia. Patient is a DNR/DNI. ED Course was noted for: (1) Troponin 0.32~0.60 (2) Chest Xray image- vascular congestion, ?pleural effusion (3) EKG- Afib with incomplete RBBB, anterior infarct age undetermined History Source: Transfer Record Limitations to Obtaining History: Clinical Condition - Past Medical History Cardiovascular: Yes: AFIB (paroxysmal), CAD, CHF, HTN Gastrointestinal: Yes: GI Bleed Renal/: Yes: Renal Failure, Hemodialysis Endocrine: Yes: Diabetes Mellitus - Past Surgical History Past Surgical History: Yes: Joint Replacement (rt hip- 2009, ankle fracture , s/ p plates-- 2005) - Smoking History Smoking history: Unknown if ever smoked Have you smoked in the past 12 months: No Aproximately how many cigarettes per day: 0 - Alcohol/Substance Use Hx Alcohol Use: No - Social History Usual Living Arrangement: Yes: Fdc ADL: Support Services History of Recent Travel: No Home Medications - Allergies Allergies/Adverse Reactions: Allergies Allergy/AdvReac Type Severity Reaction Status Date / Time erythromycin base Allergy Severe Swelling Verified 09/03/19 21:47 Penicillins Allergy Severe Swelling Verified 09/03/19 21:47 verapamil [Verapamil] Allergy Severe Swelling Verified 09/03/19 21:47 aspirin AdvReac Nausea Verified 09/03/19 21:47 peppers Allergy Uncoded 09/03/19 21:47 AQUACEL DRESSING AdvReac Severe Rash Uncoded 09/03/19 21:47 - Home Medications Home Medications: Ambulatory Orders Cinacalcet HCl [Sensipar] 30 mg PO ASDIR 07/22/17 Magnesium Oxide 400 mg PO DAILY 07/22/17 Aspirin Coated [Ecotrin -] 81 mg PO DAILY tablet.ec 08/01/17 Folic Acid/Vit B Complex and C [Dialyvite 800 Tablet] 0.8 mg PO DAILY 01/21/19 Insulin (Novolog 70/30) [Novolog Mix 70/30 Vial -] 8 ml SQ ASDIR 01/21/19 Insulin Sliding Scale [Novolog Vial Sliding Scale -] 6 units SQ AM 01/21/19 Levothyroxine [Synthroid -] 150 mcg PO DAILY@0700 #30 tablet 02/15/19 Metoprolol Tartrate [Lopressor -] 25 mg PO BID #60 tablet 02/15/19 Albuterol 0.083% Nebulizer Hawa [Ventolin 0.083% Nebulizer Soln -] 1 amp NEB Q4H PRN amp 05/16/19 Docusate Sodium [Colace -] 300 mg PO HS capsule 05/16/19 Heparin - 5,000 unit SQ TID vial 05/16/19 Insulin Sliding Scale [Novolog Vial Sliding Scale -] 1 vial SQ ACHS units 05/16 Levothyroxine [Synthroid -] 150 mcg PO DAILY@0700 tablet 05/16/19 Levothyroxine [Synthroid -] 150 mcg PO DAILY@0700 tablet 05/16/19 Metoprolol Tartrate [Lopressor -] 25 mg PO BID tablet 05/16/19 Oxycodone HCl [Roxicodone] 5 mg PO QID PRN #90 tablet MDD 4 05/16/19 Silver Sulfadiazine 1% Top Cr [Silvadene -] 1 applic TP DAILY jar 05/16/19 Sodium Hypochlorite [Dakin's Solution 0.25% (Half-Strength) -] 1 applic TP DAILY ml 05/16/19 Family Medical History Family History: Unable to Obtain Review of Systems Unable to obtain ROS, reason: Clinical Condition Physical Examination Vital Signs: Vital Signs Temperature 95.6 F L 09/03/19 22:12 Pulse Rate 69 09/04/19 02:39 Respiratory Rate 11 09/04/19 02:39 Blood Pressure 95/45 L 09/04/19 02:39 O2 Sat by Pulse Oximetry (%) 100 09/04/19 02:39 Constitutional: Yes: Other (lethargy- responds to painful stiumus) Eyes: Yes: Conjunctiva Clear, PERRL HENT: Yes: WNL, Atraumatic, Normocephalic Neck: Yes: WNL, Supple, Trachea Midline Cardiovascular: Yes: Pulse Irregular, Murmur, S1, S2 Respiratory: Yes: Diminished, Rhonchi, Other (NRB) Gastrointestinal: Yes: WNL, Normal Bowel Sounds, Soft ...Rectal Exam: Yes: Guaiac Positive Breast(s): Yes: WNL Extremities: Yes: Deformity (chronic LLE), Other (AV-Fistula Left Arm) Edema: Yes Edema: LLE: 2+, RLE: 1+ Peripheral Pulses WNL: Yes Integumentary: Yes: Pressure Ulcer (sacral), Skin Tear (upper extremity) Neurological: Yes: Lethargy Labs: CBC, BMP 09/03/19 21:46 09/03/19 21:46 Laboratory Results - last 24 hr 09/03/19 09/03/19 09/03/19 21:46 21:46 21:46 WBC 7.3 RBC 2.84 L Hgb 9.9 L Hct 32.0 L MCV 112.7 H MCH 34.9 H MCHC 31.0 L RDW 20.1 H Plt Count 85 L MPV 9.5 D Absolute Neuts (auto) 6.2 Neutrophils % 85.2 H Lymphocytes % 9.0 Monocytes % 5.0 Eosinophils % 0.5 Basophils % 0.3 Nucleated RBC % 1 H Hypochromia 1+ Platelet Estimate Decreased Platelet Comment No clumping noted Polychromasia 1+ Anisocytosis 1+ Macrocytosis 3+ Target Cells 1+ Ovalocytes Few PT with INR 20.00 H INR 1.69 H PTT (Actin FS) 41.9 H VBG pH POC VBG pCO2 POC VBG pO2 VBG HCO3 VBG O2 Sat (Juan) VBG Base Excess Sodium Potassium Chloride Carbon Dioxide Anion Gap BUN Creatinine Est GFR (CKD-EPI)AfAm Est GFR (CKD-EPI)NonAf POC Glucometer Random Glucose Lactic Acid Calcium Total Bilirubin AST ALT Alkaline Phosphatase Troponin I 0.32 H Total Protein Albumin TSH 3.65 Stool Occult Blood 09/03/19 09/03/19 09/03/19 21:46 21:46 21:46 WBC RBC Hgb Hct MCV MCH MCHC RDW Plt Count MPV Absolute Neuts (auto) Neutrophils % Lymphocytes % Monocytes % Eosinophils % Basophils % Nucleated RBC % Hypochromia Platelet Estimate Platelet Comment Polychromasia Anisocytosis Macrocytosis Target Cells Ovalocytes PT with INR INR PTT (Actin FS) VBG pH 7.21 L POC VBG pCO2 71.7 H* POC VBG pO2 56.0 H VBG HCO3 27.7 VBG O2 Sat (Juan) 78.7 VBG Base Excess -0.7 Sodium 135 L Potassium 3.9 Chloride 100 Carbon Dioxide 29 Anion Gap 6 L BUN 21.4 H Creatinine 2.1 H Est GFR (CKD-EPI)AfAm 24.78 Est GFR (CKD-EPI)NonAf 21.38 POC Glucometer Random Glucose 118 H Lactic Acid 2.0 Calcium 9.1 Total Bilirubin 0.6 AST 41 H ALT 9 L Alkaline Phosphatase 116 Troponin I Total Protein 6.9 Albumin 1.9 L TSH Stool Occult Blood 09/03/19 09/04/19 09/04/19 22:00 00:00 02:30 WBC RBC Hgb Hct MCV MCH MCHC RDW Plt Count MPV Absolute Neuts (auto) Neutrophils % Lymphocytes % Monocytes % Eosinophils % Basophils % Nucleated RBC % Hypochromia Platelet Estimate Platelet Comment Polychromasia Anisocytosis Macrocytosis Target Cells Ovalocytes PT with INR INR PTT (Actin FS) VBG pH POC VBG pCO2 POC VBG pO2 VBG HCO3 VBG O2 Sat (Juan) VBG Base Excess Sodium Potassium Chloride Carbon Dioxide Anion Gap BUN Creatinine Est GFR (CKD-EPI)AfAm Est GFR (CKD-EPI)NonAf POC Glucometer 117 Random Glucose Lactic Acid Calcium Total Bilirubin AST ALT Alkaline Phosphatase Troponin I 0.60 H Total Protein Albumin TSH Stool Occult Blood Positive Intake & Output 09/01/19 09/02/19 09/03/19 09/04/19 23:59 23:59 23:59 23:59 Weight 58.967 kg Imaging - Results Chest X-ray: Image Reviewed Cat Scan: Report Reviewed, Image Reviewed Problem List - Problems (1) Acute metabolic encephalopathy Code(s): G93.41 - METABOLIC ENCEPHALOPATHY (2) Lower GI bleed Code(s): K92.2 - GASTROINTESTINAL HEMORRHAGE, UNSPECIFIED (3) Hypotension Code(s): I95.9 - HYPOTENSION, UNSPECIFIED (4) Elevated troponin Code(s): R79.89 - OTHER SPECIFIED ABNORMAL FINDINGS OF BLOOD CHEMISTRY (5) ESRD (end stage renal disease) on dialysis Code(s): N18.6 - END STAGE RENAL DISEASE; Z99.2 - DEPENDENCE ON RENAL DIALYSIS (6) Systolic and diastolic CHF w/reduced LV function, NYHA class 4 Code(s): I50.40 - UNSP COMBINED SYSTOLIC AND DIASTOLIC (CONGESTIVE) HRT FAIL (7) Atrial fibrillation Code(s): I48.91 - UNSPECIFIED ATRIAL FIBRILLATION Qualifiers: (8) CAD (coronary artery disease) Code(s): I25.10 - ATHSCL HEART DISEASE OF [place] CORONARY ARTERY W/O ANG PCTRS (9) Hyperlipidemia Code(s): E78.5 - HYPERLIPIDEMIA, UNSPECIFIED Qualifiers: Hyperlipidemia type: pure hypercholesterolemia Qualified Code(s): E78.00 - Pure hypercholesterolemia, unspecified; E78.0 - Pure hypercholesterolemia Assessment/Plan This is a 84 y/o woman from [facility] with a PMHx of ESRD (,,), CHF, Afib , CAD, HTN, GIB, Chronic L-Leg Fx. Admitted for Telemetry for Acute Metabolic Encephalopathy, Troponinemia, GIB, Hypotension for further evaluation of their emergent condition. Plan: # Acute Metabolic Encephalopathy Likely secondary to Hypotension vs GIB vs CHF Head CT- reviewed Neuro checks Fall precautions Monitor CBC, BMP Monitor vitals # Troponinemia Likely secondary to demand ischemia Continue cardiac monitoring Serial enzymes Appreciate Cardiology consult- aware per ED resident EKG- reviewed Hold AC secondary to + GIB # Hypotension Likely secondary to GIB vs ACS vs Sepsis qSOFA 2 NS bolus given in ED, with some improvement with BP Per ED resident, patient's family decline central line placement/aggressive measures Gentle IVF Monitor vitals closely #GIB + Stool Culture H/H 9.9/32.0 Consider GI consult, will need to discuss with family their wishes. Monitor vitals Monitor CBC # ESRD HD- (,,) Appreciate Nephrology consult- HD management Avoid Nephrotoxic drugs Monitor BMP # Afib EKG-reviewed [id number] 5 Hold BB and AC secondary to Hypotension and GIB Appreciate Cardiology consult Serial Troponins elevated, likely demand ischemia # CHF Chest Xray image- vascular congestion BNP added-pending Hold diuretic secondary to Hypotension Appreciate Cardiology consult Continue cardiac monitoring FEN Replete lytes prn NPO DVT ppx OOB SCDs Hold AC secondary to GIB Code Status: MOLST, DNR/DNI, HCP, Comfort Measures Dispo: Requires Inpatient Care Visit type - Emergency Visit Emergency Visit: Yes ED Registration Date: 09/03/19 Care time: The patient presented to the Emergency Department on the above date and was hospitalized for further evaluation of their emergent condition. - New Patient This patient is new to me today: Yes Date on this admission: 09/04/19 - Critical Care Critical Care patient: Yes Total Critical Care Time (in minutes): 40 Critical Care Statement: The care of this patient involved high complexity decision making to prevent further life threatening deterioration of the patient 's condition and/or to evaluate & treat vital organ system(s) failure or risk of failure.
[2019-09-04 05:22] LABS: N-TERMINAL BNP > 35000.0 pg/ml (5-450)
[2019-09-04 07:06] LABS: BASO % 0.1 % (0-2.0); EOS % 0.4 % (0-4.5); HEMOGLOBIN 10.1 GM/dL (10.7-15.3); LYMPH % 12.2 % (8-40); MCH 35.4 pg (25.7-33.7); MCHC 31.5 g/dl (32.0-36.0); MEAN CELL VOLUME 112.6 fl (80-96); MEAN PLT VOLUME 9.1 fl (7.5-11.1); MONO % 5.9 % (3.8-10.2); NEUT % 81.4 % (42.8-82.8); PLATELET COUNT 96 K/MM3 (134-434); RBC 2.84 M/mm3 (3.60-5.2); RDW 19.6 % (11.6-15.6); WHITE BLOOD COUNT 8.9 K/mm3 (4.0-10.0)
--- NOTE | 2019-09-04 07:49 | HOSP ---
Subjective - Review of Symptoms General: Yes: Other HEENT: Yes: Other Pulmonary: Yes: Other Physical Examination Vital Signs: Vital Signs Temperature 95.6 F L 09/03/19 22:12 Pulse Rate 74 09/04/19 07:20 Respiratory Rate 22 H 09/04/19 07:20 Blood Pressure 81/41 L 09/04/19 07:20 O2 Sat by Pulse Oximetry (%) 100 09/04/19 07:20 Constitutional: Yes: Cachectic, Thin HENT: Yes: WNL Neck: Yes: WNL Cardiovascular: Yes: Bradycardia Respiratory: Yes: Diminished, Poor Air Entry, Other (on a non re breather mask sats 100%) ...Rectal Exam: Yes: Deferred Edema: Yes Edema: LUE: Trace, RUE: Trace, LLE: Trace, RLE: Trace Psychiatric: Yes: Other (lethargic) Labs: CBC, BMP 09/04/19 06:20 Hospitalist Encounter Assessment: This is a 84 y/o woman from [facility] with a PMHx of ESRD (,,), CHF, Afib , CAD, HTN, GIB, Chronic L-Leg Fx. Who presents to the ED from the Dialysis Center for lethargy, hypotension, hypoxia. Patient is a DNR/DNI. Called to see patient for low blood pressure and agonal breathing. Patient is currently on a non re breather. Patient minimally responsive to tactile stimuli, withdraws to sternal rub and movement appears comfortable, no facial grimacing, breathing rate 10-16, appears mostly agonal on non rebreather patient is comfort measures per family wishes per admitting provider, dnr/dni entered into emar does not appear to be in an distress plan: monitor patient and maintain comfort measures per family wishes antoni hanson cyber intelligence analyst [phone]
[2019-09-04 07:56] LABS: BLOOD UREA NITROGEN 20.4 mg/dL (7-18); CALCIUM 8.5 mg/dL (8.5-10.1); CREATININE 1.9 mg/dL (0.55-1.3); MAGNESIUM 2.3 mg/dL (1.8-2.4); PHOSPHOROUS 3.8 mg/dL (2.5-4.9); POTASSIUM 3.5 mmol/L (3.5-5.1)
[2019-09-04] MEDS ORDERED: ALBUTEROL SO4 0.083% IH SOL 2.5 MG/3 ML VIAL.NEB. NEB PRN (11:10)
--- NOTE | 2019-09-04 11:10 | PN ---
Progress Note (short form) - Note Progress Note: sister at bedside Pt is drowsy but answering questions-- she does appear to be confused has pain in right leg No chest pain or sob Does not remember why she is in the hospital Vital Signs - 24 hr 09/03/19 09/03/19 09/04/19 21:47 22:12 00:31 Temperature 95.6 F L Pulse Rate 84 76 Pulse Rate [ 76 81 Left] Respiratory 14 19 15 Rate Blood Pressure 78/44 L 87/63 L Blood Pressure 87/63 L 100/64 [Right Arm] O2 Sat by Pulse 80 L 100 100 Oximetry (%) 09/04/19 09/04/19 09/04/19 02:39 06:40 07:20 Temperature Pulse Rate Pulse Rate [ 69 80 74 Left] Respiratory 11 12 22 H Rate Blood Pressure Blood Pressure 95/45 L 95/62 81/41 L [Right Arm] O2 Sat by Pulse 100 100 100 Oximetry (%) 09/04/19 09/04/19 09/04/19 08:00 09:00 10:00 Temperature Pulse Rate Pulse Rate [ 70 70 Left] Respiratory 14 12 Rate Blood Pressure Blood Pressure 81/43 L 80/44 L [Right Arm] O2 Sat by Pulse 100 100 100 Oximetry (%) 09/04/19 10:15 Temperature Pulse Rate Pulse Rate [ 74 Left] Respiratory 14 Rate Blood Pressure Blood Pressure 94/55 L [Right Arm] O2 Sat by Pulse 100 Oximetry (%) Current Medications Generic Name Dose Route Start Last Admin Trade Name Freq PRN Reason Stop Dose Admin Acetaminophen 1,000 mg 09/04/19 11:08 Ofirmev Injection - IVPB Q6H PRN PAIN 4-6 Laboratory Results - last 24 hr 09/03/19 09/03/19 09/03/19 21:46 21:46 21:46 WBC 7.3 RBC 2.84 L Hgb 9.9 L Hct 32.0 L MCV 112.7 H MCH 34.9 H MCHC 31.0 L RDW 20.1 H Plt Count 85 L MPV 9.5 D Absolute Neuts (auto) 6.2 Neutrophils % 85.2 H Lymphocytes % 9.0 Monocytes % 5.0 Eosinophils % 0.5 Basophils % 0.3 Nucleated RBC % 1 H Hypochromia 1+ Platelet Estimate Decreased Platelet Comment No clumping noted Polychromasia 1+ Anisocytosis 1+ Macrocytosis 3+ Target Cells 1+ Ovalocytes Few PT with INR 20.00 H INR 1.69 H PTT (Actin FS) 41.9 H Anticoagulation Therapy VBG pH POC VBG pCO2 POC VBG pO2 VBG HCO3 VBG O2 Sat (Juan) VBG Base Excess O2 Delivery Device Oxygen Flow Rate Vent Mode Vent Rate Mechanical Rate Pressure Support Vent Sodium Potassium Chloride Carbon Dioxide Anion Gap BUN Creatinine Est GFR (CKD-EPI)AfAm Est GFR (CKD-EPI)NonAf POC Glucometer Random Glucose Lactic Acid Calcium Phosphorus Magnesium Total Bilirubin AST ALT Alkaline Phosphatase Troponin I 0.32 H B-Natriuretic Peptide Total Protein Albumin TSH 3.65 Stool Occult Blood 09/03/19 09/03/19 09/03/19 21:46 21:46 21:46 WBC RBC Hgb Hct MCV MCH MCHC RDW Plt Count MPV Absolute Neuts (auto) Neutrophils % Lymphocytes % Monocytes % Eosinophils % Basophils % Nucleated RBC % Hypochromia Platelet Estimate Platelet Comment Polychromasia Anisocytosis Macrocytosis Target Cells Ovalocytes PT with INR INR PTT (Actin FS) Anticoagulation Therapy VBG pH 7.21 L POC VBG pCO2 71.7 H* POC VBG pO2 56.0 H VBG HCO3 27.7 VBG O2 Sat (Juan) 78.7 VBG Base Excess -0.7 O2 Delivery Device Oxygen Flow Rate Vent Mode Vent Rate Mechanical Rate Pressure Support Vent Sodium 135 L Potassium 3.9 Chloride 100 Carbon Dioxide 29 Anion Gap 6 L BUN 21.4 H Creatinine 2.1 H Est GFR (CKD-EPI)AfAm 24.78 Est GFR (CKD-EPI)NonAf 21.38 POC Glucometer Random Glucose 118 H Lactic Acid 2.0 Calcium 9.1 Phosphorus Magnesium Total Bilirubin 0.6 AST 41 H ALT 9 L Alkaline Phosphatase 116 Troponin I B-Natriuretic Peptide Total Protein 6.9 Albumin 1.9 L TSH Stool Occult Blood 09/03/19 09/04/19 09/04/19 22:00 00:00 02:30 WBC RBC Hgb Hct MCV MCH MCHC RDW Plt Count MPV Absolute Neuts (auto) Neutrophils % Lymphocytes % Monocytes % Eosinophils % Basophils % Nucleated RBC % Hypochromia Platelet Estimate Platelet Comment Polychromasia Anisocytosis Macrocytosis Target Cells Ovalocytes PT with INR INR PTT (Actin FS) Anticoagulation Therapy VBG pH POC VBG pCO2 POC VBG pO2 VBG HCO3 VBG O2 Sat (Juan) VBG Base Excess O2 Delivery Device Oxygen Flow Rate Vent Mode Vent Rate Mechanical Rate Pressure Support Vent Sodium Potassium Chloride Carbon Dioxide Anion Gap BUN Creatinine Est GFR (CKD-EPI)AfAm Est GFR (CKD-EPI)NonAf POC Glucometer 117 Random Glucose Lactic Acid Calcium Phosphorus Magnesium Total Bilirubin AST ALT Alkaline Phosphatase Troponin I 0.60 H B-Natriuretic Peptide > 54488.0 H Total Protein Albumin TSH Stool Occult Blood Positive 09/04/19 09/04/19 09/04/19 06:20 06:20 11:04 WBC 8.9 RBC 2.84 L Hgb 10.1 L Hct 32.0 L MCV 112.6 H MCH 35.4 H MCHC 31.5 L RDW 19.6 H Plt Count 96 L MPV 9.1 Absolute Neuts (auto) 7.2 Neutrophils % 81.4 Lymphocytes % 12.2 D Monocytes % 5.9 Eosinophils % 0.4 Basophils % 0.1 Nucleated RBC % 1 H Hypochromia Platelet Estimate Platelet Comment Polychromasia Anisocytosis Macrocytosis Target Cells Ovalocytes PT with INR INR PTT (Actin FS) Anticoagulation Therapy No Result Required. VBG pH POC VBG pCO2 POC VBG pO2 VBG HCO3 VBG O2 Sat (Juan) VBG Base Excess O2 Delivery Device No Result Required. Oxygen Flow Rate No Result Required. Vent Mode No Result Required. Vent Rate No Result Required. Mechanical Rate No Result Required. Pressure Support Vent No Result Required. Sodium 140 Potassium 3.5 Chloride 109 H Carbon Dioxide 26 Anion Gap 5 L BUN 20.4 H Creatinine 1.9 H Est GFR (CKD-EPI)AfAm 27.96 Est GFR (CKD-EPI)NonAf 24.13 POC Glucometer Random Glucose 54 L Lactic Acid Calcium 8.5 Phosphorus 3.8 Magnesium 2.3 Total Bilirubin AST ALT Alkaline Phosphatase Troponin I 0.61 H* B-Natriuretic Peptide Total Protein Albumin TSH Stool Occult Blood S1 S2 irregular Lungs decreased Abd- soft, NT no edema Rt leg deformed at thigh and shortened A/P Altered mental status Elevated troponins Hypotensive GI bleed ESRD on HD Sepsis Hypercapneic respiratory failure -- blood cultures pending -- one dose vanco -- pt;s blood sugars are low-- will need low dose dextrose iv -- Noted ABG results-- spoke with Pulmonary - pt may need BIPAP -- elevated troponins - demand ischemia due to ESRD , possible sepsis -- previous right femur fracture-- no surgery was done as she was too unstable -- spoke with sister who is the HCP--> she does not aggressive measures-- she wants to keep her comfortable-->ok for fluids, antibiotics, O2, dialysis -- pt is DNI/DNI Problem List - Problems (1) Acute metabolic encephalopathy Code(s): G93.41 - METABOLIC ENCEPHALOPATHY (2) Acute respiratory failure with hypoxia and hypercarbia Code(s): J96.01 - ACUTE RESPIRATORY FAILURE WITH HYPOXIA; J96.02 - ACUTE RESPIRATORY FAILURE WITH HYPERCAPNIA (3) Elevated troponin Code(s): R79.89 - OTHER SPECIFIED ABNORMAL FINDINGS OF BLOOD CHEMISTRY (4) Anemia Code(s): D64.9 - ANEMIA, UNSPECIFIED (5) Diabetes Code(s): E11.9 - TYPE 2 DIABETES MELLITUS WITHOUT COMPLICATIONS (6) ESRD (end stage renal disease) Code(s): N18.6 - END STAGE RENAL DISEASE (7) Femur fracture, right Code(s): S72.91XA - UNSP FRACTURE OF RIGHT FEMUR, INIT FOR CLOS FX
[2019-09-04] MEDS ORDERED: CINACALCET HCL 30 MG TAB (FP) PO SCH (11:15)
[2019-09-04] MEDS ORDERED: ACETAMINOPHEN INJECTION 100 ML IVPB ONE (11:16)
[2019-09-04] MEDS: ACETAMINOPHEN 1000 MG/100 ML VIAL (NON FORMULARY) IVPB PRN (11:24)
[2019-09-04 11:26] LABS: ARTERIAL BLOOD GAS BASE EXCESS -3.6 meq/l (-2-2)
[2019-09-04 11:28] LABS: ALLENS TEST POSITIVE; ARTERIAL BLOOD GAS PO2 192 mmHg (80-100)
[2019-09-04 11:30] LABS: ARTERIAL BLOOD GAS pH 7.15 (7.35-7.45)
[2019-09-04 11:31] LABS: ARTERIAL BLOOD GAS PCO2 82.9 mmHg (35-45)
--- NOTE | 2019-09-04 11:35 | CON.GI ---
Consult Consult Specialty:: coverage Dr Cervantes - History of Present Illness History of Present Illness: Pt seen in the ED 84 y/o F DNR/DNI s/p hemodialysis was noted to have change in mental status and was hypotensive. She is on BIPAP and still Patient was given IV hydration which improved blood pressure. HGB/HCT at 10/32 with low PLT 96,000 and abrnormal PT/INR. INR 1.69. Stool guaiac was positive. There no reports of melena and rectal bleeding. saw patient in 2017 because of anemia and positive stool guaiac however deferred any GI workup at that time because patient is poor candidate. - Past Medical History Cardio/Vascular: Yes: AFIB (paroxysmal), CAD, CHF, HTN Gastrointestinal: Yes: GI Bleed Renal/: Yes: Renal Failure, Hemodialysis Endocrine: Yes: Diabetes Mellitus - Past Surgical History Past Surgical History: Yes: Joint Replacement (rt hip- 2009, ankle fracture , s/ p plates-- 2005) - Alcohol/Substance Use Hx Alcohol Use: No - Smoking History Smoking history: Unknown if ever smoked Have you smoked in the past 12 months: No Aproximately how many cigarettes per day: 0 - Social History ADL: Support Services History of Recent Travel: No Home Medications - Allergies Allergies/Adverse Reactions: Allergies Allergy/AdvReac Type Severity Reaction Status Date / Time erythromycin base Allergy Severe Swelling Verified 09/03/19 21:47 Penicillins Allergy Severe Swelling Verified 09/03/19 21:47 verapamil [Verapamil] Allergy Severe Swelling Verified 09/03/19 21:47 aspirin AdvReac Nausea Verified 09/03/19 21:47 peppers Allergy Uncoded 09/03/19 21:47 AQUACEL DRESSING AdvReac Severe Rash Uncoded 09/03/19 21:47 - Home Medications Home Medications: Ambulatory Orders Cinacalcet HCl [Sensipar] 30 mg PO ASDIR 07/22/17 Magnesium Oxide 400 mg PO DAILY 07/22/17 Aspirin Coated [Ecotrin -] 81 mg PO DAILY tablet.ec 08/01/17 Folic Acid/Vit B Complex and C [Dialyvite 800 Tablet] 0.8 mg PO DAILY 01/21/19 Insulin (Novolog 70/30) [Novolog Mix 70/30 Vial -] 8 ml SQ ASDIR 01/21/19 Insulin Sliding Scale [Novolog Vial Sliding Scale -] 6 units SQ AM 01/21/19 Levothyroxine [Synthroid -] 150 mcg PO DAILY@0700 #30 tablet 02/15/19 Metoprolol Tartrate [Lopressor -] 25 mg PO BID #60 tablet 02/15/19 Albuterol 0.083% Nebulizer Hawa [Ventolin 0.083% Nebulizer Soln -] 1 amp NEB Q4H PRN amp 05/16/19 Docusate Sodium [Colace -] 300 mg PO HS capsule 05/16/19 Heparin - 5,000 unit SQ TID vial 05/16/19 Insulin Sliding Scale [Novolog Vial Sliding Scale -] 1 vial SQ ACHS units 05/16 Levothyroxine [Synthroid -] 150 mcg PO DAILY@0700 tablet 05/16/19 Levothyroxine [Synthroid -] 150 mcg PO DAILY@0700 tablet 05/16/19 Metoprolol Tartrate [Lopressor -] 25 mg PO BID tablet 05/16/19 Oxycodone HCl [Roxicodone] 5 mg PO QID PRN #90 tablet MDD 4 05/16/19 Silver Sulfadiazine 1% Top Cr [Silvadene -] 1 applic TP DAILY jar 05/16/19 Sodium Hypochlorite [Dakin's Solution 0.25% (Half-Strength) -] 1 applic TP DAILY ml 05/16/19 Physical Exam-GI Vital Signs: Vital Signs Temperature 95.6 F L 09/03/19 22:12 Pulse Rate 74 09/04/19 10:15 Respiratory Rate 14 09/04/19 10:15 Blood Pressure 94/55 L 09/04/19 10:15 O2 Sat by Pulse Oximetry (%) 100 09/04/19 10:15 Constitutional: Yes: Well Nourished Eyes: Yes: Conjunctiva Clear HENT: Yes: Atraumatic Neck: Yes: Supple Cardiovascular: Yes: Regular Rate and Rhythm Respiratory: Yes: CTA Bilaterally ...Palpate: Yes: Soft. No: Firm/Rigid, Guarding, Hepatomegaly, Mass, Pulsatile Mass, Splenomegaly Labs: CBC, BMP 09/04/19 06:20 09/04/19 06:20 INR, PTT INR 1.69 (0.83-1.09) H 09/03/19 21:46 Home Medications Medication Instructions Recorded Cinacalcet HCl [Sensipar] 30 mg PO ASDIR 07/22/17 Magnesium Oxide 400 mg PO DAILY 07/22/17 Aspirin Coated [Ecotrin -] 81 mg PO DAILY tablet.ec 08/01/17 Folic Acid/Vit B Complex and C 0.8 mg PO DAILY 01/21/19 [Dialyvite 800 Tablet] Insulin (Novolog 70/30) [Novolog 8 ml SQ ASDIR 01/21/19 Mix 70/30 Vial -] Insulin Sliding Scale [Novolog 6 units SQ AM 01/21/19 Vial Sliding Scale -] Levothyroxine [Synthroid -] 150 mcg PO DAILY@0700 #30 tablet 02/15/19 Metoprolol Tartrate [Lopressor -] 25 mg PO BID #60 tablet 02/15/19 Albuterol 0.083% Nebulizer [place] 1 amp NEB Q4H PRN amp 05/16/19 [Ventolin 0.083% Nebulizer Soln -] Docusate Sodium [Colace -] 300 mg PO HS capsule 05/16/19 Heparin - 5,000 unit SQ TID vial 05/16/19 Insulin Sliding Scale [Novolog 1 vial SQ ACHS units 05/16/19 Vial Sliding Scale -] Levothyroxine [Synthroid -] 150 mcg PO DAILY@0700 tablet 05/16/19 Levothyroxine [Synthroid -] 150 mcg PO DAILY@0700 tablet 05/16/19 Metoprolol Tartrate [Lopressor -] 25 mg PO BID tablet 05/16/19 Oxycodone HCl [Roxicodone] 5 mg PO QID PRN #90 tablet MDD 4 05/16/19 Silver Sulfadiazine 1% Top Cr 1 applic TP DAILY jar 05/16/19 [Silvadene -] Sodium Hypochlorite [Dakin's 1 applic TP DAILY ml 05/16/19 Solution 0.25% (Half-Strength) -] Problem List - Problems (1) Occult GI bleeding Assessment/Plan: R>IV Pantoprazole 40mg bid continue supportive care Code(s): R19.5 - OTHER FECAL ABNORMALITIES
--- NOTE | 2019-09-04 11:49 | EKG ---
Test Reason : Blood Pressure : / mmHG Vent. Rate : 071 BPM Atrial Rate : 187 BPM P-R Int : 000 ms QRS Dur : 104 ms QT Int : 420 ms P-R-T Axes : 000 050 187 degrees QTc Int : 456 ms ATRIAL FIBRILLATION INCOMPLETE RIGHT BUNDLE BRANCH BLOCK CANNOT RULE OUT ANTERIOR INFARCT (CITED ON OR BEFORE 11-FEB-2019) ABNORMAL ECG WHEN COMPARED WITH ECG OF 03-SEP-2019 21:36, QUESTIONABLE CHANGE IN INITIAL FORCES OF ANTERIOR LEADS ST NO LONGER DEPRESSED IN INFERIOR LEADS T WAVE INVERSION LESS EVIDENT IN LATERAL LEADS Confirmed by JAMISON ARNDT, MARSHALL ([id number]) on 09/04/2019 11:49:33 AM Referred By: Confirmed By:MARSHALL SWIFT MD
--- NOTE | 2019-09-04 11:50 | EKG ---
Test Reason : Blood Pressure : / mmHG Vent. Rate : 074 BPM Atrial Rate : 081 BPM P-R Int : 000 ms QRS Dur : 108 ms QT Int : 384 ms P-R-T Axes : 000 072 238 degrees QTc Int : 426 ms ATRIAL FIBRILLATION INCOMPLETE RIGHT BUNDLE BRANCH BLOCK ANTERIOR INFARCT (CITED ON OR BEFORE 11-FEB-2019) ABNORMAL ECG WHEN COMPARED WITH ECG OF 11-FEB-2019 08:39, QUESTIONABLE CHANGE IN INITIAL FORCES OF SEPTAL LEADS ST NOW DEPRESSED IN INFERIOR LEADS ST LESS DEPRESSED IN LATERAL LEADS T WAVE INVERSION MORE EVIDENT IN INFERIOR LEADS Confirmed by MARSHALL SWIFT MD ([id number]) on 09/04/2019 11:50:03 AM Referred By: Confirmed By:MARSHALL SWIFT MD
[2019-09-04] MEDS ORDERED: VANCOMYCIN 1 GM in D5W (PRE-DOCKED) 1,000 MG/250 ML IVPB ONE (11:51)
[2019-09-04] MEDS ORDERED: VANCOMYCIN 1 GRAM (PRE-DOCKED) 1,000 MG/250 ML BAG IVPB ONE (12:11)
--- NOTE | 2019-09-04 12:57 | CON.PULM ---
Consult Consult Specialty:: PULM/CCM Referred by:: WAYNE Reason for Consultation:: SOB - History of Present Illness Chief Complaint: SOB History of Present Illness: 84 F, ESRD (,,), CHF, Afib, CAD, HTN, GI Bleed, and chronic lower extremity fractures. Admitted from the HD center due to lethargy, hypotension, and hypoxia. Patient is a documented DNR/DNI. She is currently seen in the ER. She is lethargic but arousable and able to answer some questions. She does report SOB. Denies significant cough. CXR: increasing bilateral infiltrates and effusions - History Source History Provided By: Patient, Medical Record Limitations to Obtaining History: Clinical Condition - Past Medical History Cardio/Vascular: Yes: AFIB (paroxysmal), CAD, CHF, HTN Pulmonary: Yes: Pneumonia. No: Asthma, Bronchitis, Cancer, COPD, O2 Dependent, Previously Intubated, Pulmonary Embolus, Pulmonary Fibrosis, Sleep Apnea Gastrointestinal: Yes: GI Bleed Renal/: Yes: Renal Failure, Hemodialysis Endocrine: Yes: Diabetes Mellitus - Past Surgical History Past Surgical History: Yes: Joint Replacement (rt hip- 2009, ankle fracture , s/ p plates-- 2005) - Alcohol/Substance Use Hx Alcohol Use: No - Smoking History Smoking history: Unknown if ever smoked Have you smoked in the past 12 months: No Aproximately how many cigarettes per day: 0 - Social History ADL: Support Services History of Recent Travel: No Home Medications - Allergies Allergies/Adverse Reactions: Allergies Allergy/AdvReac Type Severity Reaction Status Date / Time erythromycin base Allergy Severe Swelling Verified 09/03/19 21:47 Penicillins Allergy Severe Swelling Verified 09/03/19 21:47 verapamil [Verapamil] Allergy Severe Swelling Verified 09/03/19 21:47 aspirin AdvReac Nausea Verified 09/03/19 21:47 peppers Allergy Uncoded 09/03/19 21:47 AQUACEL DRESSING AdvReac Severe Rash Uncoded 09/03/19 21:47 - Home Medications Home Medications: Ambulatory Orders Cinacalcet HCl [Sensipar] 30 mg PO ASDIR 07/22/17 Magnesium Oxide 400 mg PO DAILY 07/22/17 Aspirin Coated [Ecotrin -] 81 mg PO DAILY tablet.ec 08/01/17 Folic Acid/Vit B Complex and C [Dialyvite 800 Tablet] 0.8 mg PO DAILY 01/21/19 Insulin (Novolog 70/30) [Novolog Mix 70/30 Vial -] 8 ml SQ ASDIR 01/21/19 Insulin Sliding Scale [Novolog Vial Sliding Scale -] 6 units SQ AM 01/21/19 Levothyroxine [Synthroid -] 150 mcg PO DAILY@0700 #30 tablet 02/15/19 Metoprolol Tartrate [Lopressor -] 25 mg PO BID #60 tablet 02/15/19 Albuterol 0.083% Nebulizer Haw[place] [Ventolin 0.083% Nebulizer Soln -] 1 amp NEB Q4H PRN amp 05/16/19 Docusate Sodium [Colace -] 300 mg PO HS capsule 05/16/19 Heparin - 5,000 unit SQ TID vial 05/16/19 Insulin Sliding Scale [Novolog Vial Sliding Scale -] 1 vial SQ ACHS units 05/16 Levothyroxine [Synthroid -] 150 mcg PO DAILY@0700 tablet 05/16/19 Levothyroxine [Synthroid -] 150 mcg PO DAILY@0700 tablet 05/16/19 Metoprolol Tartrate [Lopressor -] 25 mg PO BID tablet 05/16/19 Oxycodone HCl [Roxicodone] 5 mg PO QID PRN #90 tablet MDD 4 05/16/19 Silver Sulfadiazine 1% Top Cr [Silvadene -] 1 applic TP DAILY jar 05/16/19 Sodium Hypochlorite [Dakin's Solution 0.25% (Half-Strength) -] 1 applic TP DAILY ml 05/16/19 Review of Systems - Review of Systems Constitutional: reports: Lethargy, Malaise. denies: Chills, Fever, Night Sweats Eyes: reports: No Symptoms HENT: reports: No Symptoms Neck: reports: No Symptoms Cardiovascular: reports: Shortness of Breath. denies: Chest Pain, Edema, Palpitations Respiratory: reports: Cough, SOB, SOB on Exertion. denies: Hemoptysis, Orthopnea, PND, Snoring, Wheezing Gastrointestinal: reports: No Symptoms Breasts: reports: No Symptoms Reported Musculoskeletal: reports: No Symptoms Integumentary: reports: No Symptoms Neurological: reports: Confusion Endocrine: reports: No Symptoms Hematology/Lymphatic: reports: No Symptoms Psychiatric: reports: No Symptoms Physical Exam Vital Sings: Vital Signs Temperature 95.6 F L 09/03/19 22:12 Pulse Rate 74 09/04/19 10:15 Respiratory Rate 14 09/04/19 10:15 Blood Pressure 94/55 L 09/04/19 10:15 O2 Sat by Pulse Oximetry (%) 100 09/04/19 10:15 Constitutional: Yes: Mild Distress Eyes: Yes: Conjunctiva Clear, EOM Intact HENT: Yes: Atraumatic, Normocephalic Neck: Yes: Supple, Trachea Midline Cardiovascular: Yes: Regular Rate and Rhythm Respiratory: Yes: Accessory Muscle Use, Diminished, On Venti-Mask, Rales, Rhonchi, SOB, SOB on Exertion, Tachypnea. No: Cough, Stridor, Wheezes ...Inspection: Yes: WNL ...Clubbing: No Gastrointestinal: Yes: Normal Bowel Sounds, Soft, Abdomen, Obese Musculoskeletal: Yes: Other (leg deformity ) Extremities: Yes: Deformity Edema: Yes Peripheral Pulses WNL: Yes Integumentary: Yes: WNL Neurological: Yes: Confusion, Lethargy Labs: CBC, BMP 09/04/19 06:20 09/04/19 06:20 ABG Results ABG pH 7.15 (7.35-7.45) L* 09/04/19 11:04 ABG pCO2 at Pt Temp 82.9 mmHg (35-45) H* 09/04/19 11:04 ABG pO2 at Pt Temp 192 mmHg (80-100) H 09/04/19 11:04 ABG HCO3 27.8 mmol/L (22-27) H 09/04/19 11:04 ABG O2 Sat (Measured) 98.0 % (95-98) 09/04/19 11:04 ABG O2 Content No Result Required. 09/04/19 11:04 ABG Base Excess -3.6 meq/l (-2-2) L 09/04/19 11:04 Imaging - Results Chest X-ray: Report Reviewed, Image Reviewed Problem List - Problems (1) Pleural effusion Code(s): J90 - PLEURAL EFFUSION, NOT ELSEWHERE CLASSIFIED (2) Pulmonary vascular congestion Code(s): R09.89 - OTH SYMPTOMS AND SIGNS INVOLVING THE CIRC AND RESP SYSTEMS (3) Acute respiratory failure with hypoxia and hypercarbia Code(s): J96.01 - ACUTE RESPIRATORY FAILURE WITH HYPOXIA; J96.02 - ACUTE RESPIRATORY FAILURE WITH HYPERCAPNIA (4) Anemia Code(s): D64.9 - ANEMIA, UNSPECIFIED (5) Aortic stenosis Code(s): I35.0 - NONRHEUMATIC AORTIC (VALVE) STENOSIS Qualifiers: Cardiac valve disease etiology: nonrheumatic Qualified Code(s): I35.0 - Nonrheumatic aortic (valve) stenosis (6) Atrial fibrillation Code(s): I48.91 - UNSPECIFIED ATRIAL FIBRILLATION Qualifiers: (7) CAD (coronary artery disease) Code(s): I25.10 - ATHSCL HEART DISEASE OF [place] CORONARY ARTERY W/O ANG PCTRS (8) Diabetes Code(s): E11.9 - TYPE 2 DIABETES MELLITUS WITHOUT COMPLICATIONS (9) ESRD (end stage renal disease) on dialysis Code(s): N18.6 - END STAGE RENAL DISEASE; Z99.2 - DEPENDENCE ON RENAL DIALYSIS (10) H/O heart artery stent Code(s): Z95.5 - PRESENCE OF CORONARY ANGIOPLASTY IMPLANT AND GRAFT (11) Hyperlipidemia Code(s): E78.5 - HYPERLIPIDEMIA, UNSPECIFIED Qualifiers: Hyperlipidemia type: pure hypercholesterolemia Qualified Code(s): E78.00 - Pure hypercholesterolemia, unspecified; E78.0 - Pure hypercholesterolemia (12) 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 (13) Hypertension Code(s): I10 - ESSENTIAL (PRIMARY) HYPERTENSION Qualifiers: Hypertension type: essential hypertension Qualified Code(s): I10 - Essential (primary) hypertension (14) Hypotension Code(s): I95.9 - HYPOTENSION, UNSPECIFIED (15) Hypothyroid Code(s): E03.9 - HYPOTHYROIDISM, UNSPECIFIED Qualifiers: (16) Renal dialysis status Code(s): Z99.2 - DEPENDENCE ON RENAL DIALYSIS (17) Right ventricular dysfunction Code(s): I51.9 - HEART DISEASE, UNSPECIFIED (18) S/P hip replacement Code(s): Z96.649 - PRESENCE OF UNSPECIFIED ARTIFICIAL HIP JOINT (19) Systolic CHF Code(s): I50.20 - UNSPECIFIED SYSTOLIC (CONGESTIVE) HEART FAILURE (20) Venous (peripheral) insufficiency Code(s): I87.2 - VENOUS INSUFFICIENCY (CHRONIC) (PERIPHERAL) Assessment/Plan IMP: Do not clinically suspect PNA R/O Sepsis Patient is DNR / DNI: she is acute hypercapneic on ABG She is arousable and responsive and appears to be able to protect her airway. Aspiration precautions Noted the patient received Vancomycin: ID evaluation was called for ABX coverage HD per Renal BD TX PRN No indication for systemic steroids Consider Palliative Care evaluation Will follow Thank you. Dr Zhao
[2019-09-04] MEDS ORDERED: PANTOPRAZOLE SODIUM 40 MG VIAL IVPUSH SCH (13:00)
[2019-09-04] MEDS ORDERED: DEXTROSE 5%-WATER - 1,000 ML IV SCH (13:00)
[2019-09-04] MEDS ORDERED: PANTOPRAZOLE SODIUM 40 MG VIAL ONE (13:30)
--- NOTE | 2019-09-04 14:02 | PN ---
Progress Note (short form) - Note Progress Note: ID consult dictated imp/reccd 84 yo female esrd/hd, s/p fracture of left leg admitted with hypercapneic resp failure and hypotension she apparently became unresponsive during hd yesterday and was sent to ED was resonsive this am but confused per her sister now unrespopnsive and hypotensive received vancomycin and gentamicin per prior wishes of patient DNR/DNI sister in conversation with renal and PMD has elected for palliative care, no further labs d/w renal
[2019-09-04] MEDS ORDERED: GENTAMICIN INJECTION 100 MG in SODIUM CHLORIDE 97.5 ML IVPB ONE (15:00)
--- NOTE | 2019-09-04 16:18 | CONSULT ---
Consult - text type - Consultation Consultation Note: Renal consult for ESRD on HD This is a 84 year old woman with history of ESRD on HD, CHF, Afib, CAD, Hypertension, GIB, Chronic femur fracture, hypertension who presented from [place] with AMS and hypotensoin. She was having her routine dialysis when she became unresponsive. Seen and examined in the ER. Currently on BIPAP, not responsive. Family at the bedside. Sister reports she did not complain any pain, diarrhea, fever or chills over the last few days. PMHx: as above Allergies: NKDA Family Hx: NC Social Hx: No T/A/D ROS: Unable to obtain given clinical status. Home Medications Medication Instructions Recorded Cinacalcet HCl [Sensipar] 30 mg PO ASDIR 07/22/17 Magnesium Oxide 400 mg PO DAILY 07/22/17 Aspirin Coated [Ecotrin -] 81 mg PO DAILY tablet.ec 08/01/17 Folic Acid/Vit B Complex and C 0.8 mg PO DAILY 01/21/19 [Dialyvite 800 Tablet] Insulin (Novolog 70/30) [Novolog 8 ml SQ ASDIR 01/21/19 Mix 70/30 Vial -] Insulin Sliding Scale [Novolog 6 units SQ AM 01/21/19 Vial Sliding Scale -] Levothyroxine [Synthroid -] 150 mcg PO DAILY@0700 #30 tablet 02/15/19 Metoprolol Tartrate [Lopressor -] 25 mg PO BID #60 tablet 02/15/19 Albuterol 0.083% Nebulizer Hawa 1 amp NEB Q4H PRN amp 05/16/19 [Ventolin 0.083% Nebulizer Soln -] Docusate Sodium [Colace -] 300 mg PO HS capsule 05/16/19 Heparin - 5,000 unit SQ TID vial 05/16/19 Insulin Sliding Scale [Novolog 1 vial SQ ACHS units 05/16/19 Vial Sliding Scale -] Levothyroxine [Synthroid -] 150 mcg PO DAILY@0700 tablet 05/16/19 Levothyroxine [Synthroid -] 150 mcg PO DAILY@0700 tablet 05/16/19 Metoprolol Tartrate [Lopressor -] 25 mg PO BID tablet 05/16/19 Oxycodone HCl [Roxicodone] 5 mg PO QID PRN #90 tablet MDD 4 05/16/19 Silver Sulfadiazine 1% Top Cr 1 applic TP DAILY jar 05/16/19 [Silvadene -] Sodium Hypochlorite [Dakin's 1 applic TP DAILY ml 05/16/19 Solution 0.25% (Half-Strength) -] Vital Signs Temperature 95.6 F L 09/03/19 22:12 Pulse Rate 74 09/04/19 10:15 Respiratory Rate 14 09/04/19 10:15 Blood Pressure 94/55 L 09/04/19 10:15 O2 Sat by Pulse Oximetry (%) 100 09/04/19 10:15 Intake & Output 09/01/19 09/02/19 09/03/19 09/04/19 23:59 23:59 23:59 23:59 Weight 58.967 kg Lethargic neck supple RRR Dec BS soft NT/ND no LE edema left arm AVF CBC, BMP 09/04/19 06:20 09/04/19 06:20 Current Medications Acetaminophen (Ofirmev Injection -) 1,000 mg IVPB Q6H PRN PRN Reason: PAIN 4-6 Last Admin: 09/04/19 11:24 Dose: 1,000 mg Albuterol Sulfate (Ventolin 0.083% Nebulizer Soln -) 1 amp NEB Q4H PRN PRN Reason: SHORT OF BREATH/WHEEZING Cinacalcet (Sensipar -) 30 mg PO ASDIR ERNESTINE Dextrose (D5w -) 1,000 mls @ 43.478 mls/hr IV ASDIR ERNESTINE Last Admin: 09/04/19 15:42 Dose: 43.478 mls/hr Insulin Aspart (Novolog Vial Sliding Scale -) 1 vial SQ TIDAC [facility]; Protocol Levothyroxine Sodium (Synthroid -) 150 mcg PO DAILY@0700 [facility] Pantoprazole Sodium (Protonix Iv) 40 mg IVPUSH DAILY [facility] Last Admin: 09/04/19 13:35 Dose: 40 mg 84 year old woman with history of ESRD on HD, CHF, Afib, CAD, Hypertension, GIB , Chronic femur fracture, hypertension who presented from [place] with AMS and hypotensoin. 1. ESRD on HD 2. Altered Mental status 3. Respiratory failure 4. Fluid overload Clinical status is very poor at the present time. pt would be unable to tolerate dialysis at this time given low BP. Case discussed with sister at the bedside. She understands the gravity of the situation and she would like to avoid aggressive measures and would like comfort care. It was discussed with her that we would not do further lab draws or dialysis going forward and give her PRN medications for comfort only. This was discussed with the primary medical doctor. Thank you Kenny Yeboah DO
[2019-09-04] MEDS: INSULIN SLIDING SCALE (NOVOLOG) 1 VIAL SQ SCH (16:38)
[2019-09-04] MEDS ORDERED: PANTOPRAZOLE SODIUM 40 MG in SODIUM CHLORIDE 100 ML IVPB SCH (22:00)
[2019-09-04] MEDS: PANTOPRAZOLE SODIUM 40 MG VIAL IVPUSH SCH (22:42)
[2019-09-05 02:43] VITALS: BMI 23.4
[2019-09-05] MEDS ORDERED: DEXTROSE 50%-WATER 25 GM/50 ML DISP.SYRIN ONE (05:57)
[2019-09-05] MEDS ORDERED: DEXTROSE 50%-WATER - 25 GM/50 ML VIAL IVPUSH ONE (06:18)
[2019-09-05] MEDS: INSULIN SLIDING SCALE (NOVOLOG) 1 VIAL SQ SCH ×3 (06:49→18:56)
[2019-09-05] MEDS: LEVOTHYROXINE NA 150 MCG TABLET PO SCH (06:49)
--- NOTE | 2019-09-05 11:15 | PN ---
Progress Note (short form) - Note Progress Note: pt seen/ examined Events noted/ Chart is reviewed. Drowsy Confused/poorly responsive comfortable Vital Signs Temp 98.9 F 09/05/19 06:00 Pulse 82 09/05/19 06:00 Resp 20 09/05/19 06:00 BP 87/47 L 09/05/19 06:00 Pulse Ox 96 09/05/19 08:04 Intake & Output 09/04/19 09/04/19 09/05/19 11:59 23:59 11:59 Intake Total 420 Balance 420 Weight 145 lb 6.4 oz 145 lb 6.4 oz Intake: IV 420 D5w - 1,000 ml @ 43.478 420 mls/hr IV ASDIR ERNESTINE Rx#: [id number] Other: Voiding Method Diaper Diaper Bowel Movement Yes # Bowel Movements 2 1 Height 5 ft 6 in Body Mass Index (BMI) 23.4 Weight Measurement Method Patient Lift Scale Patient Lift Scale Active Medications Acetaminophen (Ofirmev Injection -) 1,000 mg IVPB Q6H PRN PRN Reason: PAIN 4-6 Last Admin: 09/04/19 11:24 Dose: 1,000 mg Albuterol Sulfate (Ventolin 0.083% Nebulizer Soln -) 1 amp NEB Q4H PRN PRN Reason: SHORT OF BREATH/WHEEZING Cinacalcet (Sensipar -) 30 mg PO ASDIR [facility] Dextrose (D50w (Vial) -) 25 gm IVPUSH NOW ONE Stop: 09/05/19 06:19 Last Admin: 09/05/19 06:00 Dose: 25 gm Dextrose (D5w -) 1,000 mls @ 43.478 mls/hr IV ASDIR [facility] Last Admin: 09/04/19 15:42 Dose: 43.478 mls/hr Insulin Aspart (Novolog Vial Sliding Scale -) 1 vial SQ TIDAC [facility]; Protocol Last Admin: 09/05/19 06:49 Dose: Not Given Levothyroxine Sodium (Synthroid -) 150 mcg PO DAILY@0700 [facility] Last Admin: 09/05/19 06:49 Dose: Not Given Pantoprazole Sodium (Protonix Iv) 40 mg IVPUSH BID [facility] Last Admin: 09/04/19 22:42 Dose: 40 mg CBC, BMP 09/04/19 06:20 09/04/19 06:20 Microbiology 09/03/19 21:46 Blood Culture - Preliminary Blood - Peripheral Venous NO GROWTH OBTAINED AFTER 24 HOURS, INCUBATION TO CONTINUE FOR 4 DAYS. Physical Exam. Drowsy / confused S1 S2 irregular Lungs decreased Abd- soft, no edema Rt leg deformed at thigh and shortened A/P Altered mental status Elevated troponins Hypotensive GI bleed ESRD on HD Sepsis Hypercapneic respiratory failure -Comfort Care -- Dialysis Held- Will not be able to tolerate-- HYpotensive -Prognosis poor -- pt is DNI/DNI - Palliative consult requested - Consider hospice Will follow Problem List - Problems (1) Acute metabolic encephalopathy Code(s): G93.41 - METABOLIC ENCEPHALOPATHY (2) Acute respiratory failure with hypoxia and hypercarbia Code(s): J96.01 - ACUTE RESPIRATORY FAILURE WITH HYPOXIA; J96.02 - ACUTE RESPIRATORY FAILURE WITH HYPERCAPNIA (3) Elevated troponin Code(s): R79.89 - OTHER SPECIFIED ABNORMAL FINDINGS OF BLOOD CHEMISTRY (4) Anemia Code(s): D64.9 - ANEMIA, UNSPECIFIED (5) Diabetes Code(s): E11.9 - TYPE 2 DIABETES MELLITUS WITHOUT COMPLICATIONS (6) ESRD (end stage renal disease) Code(s): N18.6 - END STAGE RENAL DISEASE (7) Femur fracture, right Code(s): S72.91XA - UNSP FRACTURE OF RIGHT FEMUR, INIT FOR CLOS FX
[2019-09-05] MEDS: PANTOPRAZOLE SODIUM 40 MG VIAL IVPUSH SCH ×2 (11:51→21:47)
[2019-09-05] MEDS: ACETAMINOPHEN 1000 MG/100 ML VIAL (NON FORMULARY) IVPB PRN (11:51)
--- NOTE | 2019-09-05 11:53 | PN ---
Progress Note (short form) - Note Progress Note: More lethargic today on NIPPV support. Intermittently moaning. Tachypneic. Intake & Output 09/02/19 09/03/19 09/04/19 09/05/19 23:59 23:59 23:59 23:59 Intake Total 420 Balance 420 Weight 130 lb 145 lb 6.4 oz 145 lb 6.4 oz Last Vital Signs Temp Pulse Resp BP Pulse Ox 98.9 F 82 20 87/47 L 96 09/05/19 06:00 09/05/19 06:00 09/05/19 06:00 09/05/19 06:00 09/05/19 08:04 Active Medications Acetaminophen (Ofirmev Injection -) 1,000 mg IVPB Q6H PRN PRN Reason: PAIN 4-6 Last Admin: 09/04/19 11:24 Dose: 1,000 mg Albuterol Sulfate (Ventolin 0.083% Nebulizer Soln -) 1 amp NEB Q4H PRN PRN Reason: SHORT OF BREATH/WHEEZING Cinacalcet (Sensipar -) 30 mg PO ASDIR [facility] Dextrose (D5w -) 1,000 mls @ 43.478 mls/hr IV ASDIR [facility] Last Admin: 09/04/19 15:42 Dose: 43.478 mls/hr Insulin Aspart (Novolog Vial Sliding Scale -) 1 vial SQ TIDAC [facility]; Protocol Last Admin: 09/05/19 06:49 Dose: Not Given Levothyroxine Sodium (Synthroid -) 150 mcg PO DAILY@0700 [facility] Last Admin: 09/05/19 06:49 Dose: Not Given Pantoprazole Sodium (Protonix Iv) 40 mg IVPUSH BID [facility] Last Admin: 09/04/19 22:42 Dose: 40 mg Constitutional: Yes: Lethargic, Tachypneic Eyes: Yes: Conjunctiva Clear, EOM Intact HENT: Yes: Atraumatic, Normocephalic Neck: Yes: Supple, Trachea Midline Cardiovascular: Yes: Regular Rate and Rhythm Respiratory: Yes: Accessory Muscle Use, Diminished, On NIPPV support, Rhonchi, Tachypnea. No: Cough, Stridor, Wheezes ...Inspection: Yes: WNL ...Clubbing: No Gastrointestinal: Yes: Normal Bowel Sounds, Soft, Abdomen, Obese Musculoskeletal: Yes: Other (leg deformity ) Extremities: Yes: Deformity Edema: Yes Peripheral Pulses WNL: Yes Integumentary: Yes: WNL Neurological: Yes: Confusion, Lethargy Labs: Laboratory Results - last 24 hr 09/04/19 09/05/19 09/05/19 16:34 00:00 06:46 POC Glucometer 76 78 Lactic Acid 1.1 Problem List - Problems (1) Pleural effusion Code(s): J90 - PLEURAL EFFUSION, NOT ELSEWHERE CLASSIFIED (2) Pulmonary vascular congestion Code(s): R09.89 - OTH SYMPTOMS AND SIGNS INVOLVING THE CIRC AND RESP SYSTEMS (3) Acute respiratory failure with hypoxia and hypercarbia Code(s): J96.01 - ACUTE RESPIRATORY FAILURE WITH HYPOXIA; J96.02 - ACUTE RESPIRATORY FAILURE WITH HYPERCAPNIA (4) Anemia Code(s): D64.9 - ANEMIA, UNSPECIFIED (5) Aortic stenosis Code(s): I35.0 - NONRHEUMATIC AORTIC (VALVE) STENOSIS Qualifiers: Cardiac valve disease etiology: nonrheumatic Qualified Code(s): I35.0 - Nonrheumatic aortic (valve) stenosis (6) Atrial fibrillation Code(s): I48.91 - UNSPECIFIED ATRIAL FIBRILLATION Qualifiers: (7) CAD (coronary artery disease) Code(s): I25.10 - ATHSCL HEART DISEASE OF [place] CORONARY ARTERY W/O ANG PCTRS (8) Diabetes Code(s): E11.9 - TYPE 2 DIABETES MELLITUS WITHOUT COMPLICATIONS (9) ESRD (end stage renal disease) on dialysis Code(s): N18.6 - END STAGE RENAL DISEASE; Z99.2 - DEPENDENCE ON RENAL DIALYSIS (10) H/O heart artery stent Code(s): Z95.5 - PRESENCE OF CORONARY ANGIOPLASTY IMPLANT AND GRAFT (11) Hyperlipidemia Code(s): E78.5 - HYPERLIPIDEMIA, UNSPECIFIED Qualifiers: Hyperlipidemia type: pure hypercholesterolemia Qualified Code(s): E78.00 - Pure hypercholesterolemia, unspecified; E78.0 - Pure hypercholesterolemia (12) 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 (13) Hypertension Code(s): I10 - ESSENTIAL (PRIMARY) HYPERTENSION Qualifiers: Hypertension type: essential hypertension Qualified Code(s): I10 - Essential (primary) hypertension (14) Hypotension Code(s): I95.9 - HYPOTENSION, UNSPECIFIED (15) Hypothyroid Code(s): E03.9 - HYPOTHYROIDISM, UNSPECIFIED Qualifiers: (16) Renal dialysis status Code(s): Z99.2 - DEPENDENCE ON RENAL DIALYSIS (17) Right ventricular dysfunction Code(s): I51.9 - HEART DISEASE, UNSPECIFIED (18) S/P hip replacement Code(s): Z96.649 - PRESENCE OF UNSPECIFIED ARTIFICIAL HIP JOINT (19) Systolic CHF Code(s): I50.20 - UNSPECIFIED SYSTOLIC (CONGESTIVE) HEART FAILURE (20) Venous (peripheral) insufficiency Code(s): I87.2 - VENOUS INSUFFICIENCY (CHRONIC) (PERIPHERAL) Assessment/Plan IMP: Do not clinically suspect PNA R/O Sepsis Patient is DNR / DNI: GOC to be furtehr discussed with the NOK Aspiration precautions ABX per ID HD per Renal BD TX PRN No indication for systemic steroids Palliative Care evaluation to further determine GOC Dr Zhao Problem List - Problems (1) Pleural effusion Code(s): J90 - PLEURAL EFFUSION, NOT ELSEWHERE CLASSIFIED (2) Pulmonary vascular congestion Code(s): R09.89 - OTH SYMPTOMS AND SIGNS INVOLVING THE CIRC AND RESP SYSTEMS (3) Acute respiratory failure with hypoxia and hypercarbia Code(s): J96.01 - ACUTE RESPIRATORY FAILURE WITH HYPOXIA; J96.02 - ACUTE RESPIRATORY FAILURE WITH HYPERCAPNIA (4) Anemia Code(s): D64.9 - ANEMIA, UNSPECIFIED (5) Aortic stenosis Code(s): I35.0 - NONRHEUMATIC AORTIC (VALVE) STENOSIS Qualifiers: Cardiac valve disease etiology: nonrheumatic Qualified Code(s): I35.0 - Nonrheumatic aortic (valve) stenosis (6) Atrial fibrillation Code(s): I48.91 - UNSPECIFIED ATRIAL FIBRILLATION Qualifiers: (7) CAD (coronary artery disease) Code(s): I25.10 - ATHSCL HEART DISEASE OF [place] CORONARY ARTERY W/O ANG PCTRS (8) Diabetes Code(s): E11.9 - TYPE 2 DIABETES MELLITUS WITHOUT COMPLICATIONS (9) ESRD (end stage renal disease) on dialysis Code(s): N18.6 - END STAGE RENAL DISEASE; Z99.2 - DEPENDENCE ON RENAL DIALYSIS (10) H/O heart artery stent Code(s): Z95.5 - PRESENCE OF CORONARY ANGIOPLASTY IMPLANT AND GRAFT (11) Hyperlipidemia Code(s): E78.5 - HYPERLIPIDEMIA, UNSPECIFIED Qualifiers: Hyperlipidemia type: pure hypercholesterolemia Qualified Code(s): E78.00 - Pure hypercholesterolemia, unspecified; E78.0 - Pure hypercholesterolemia (12) 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 (13) Hypertension Code(s): I10 - ESSENTIAL (PRIMARY) HYPERTENSION Qualifiers: Hypertension type: essential hypertension Qualified Code(s): I10 - Essential (primary) hypertension (14) Hypotension Code(s): I95.9 - HYPOTENSION, UNSPECIFIED (15) Hypothyroid Code(s): E03.9 - HYPOTHYROIDISM, UNSPECIFIED Qualifiers: (16) Renal dialysis status Code(s): Z99.2 - DEPENDENCE ON RENAL DIALYSIS (17) Right ventricular dysfunction Code(s): I51.9 - HEART DISEASE, UNSPECIFIED (18) S/P hip replacement Code(s): Z96.649 - PRESENCE OF UNSPECIFIED ARTIFICIAL HIP JOINT (19) Systolic CHF Code(s): I50.20 - UNSPECIFIED SYSTOLIC (CONGESTIVE) HEART FAILURE (20) Venous (peripheral) insufficiency Code(s): I87.2 - VENOUS INSUFFICIENCY (CHRONIC) (PERIPHERAL)
--- NOTE | 2019-09-05 13:44 | PN ---
Progress Note (short form) - Note Progress Note: Renal follow up for ESRD on HD Seen at the bedside on BIPAP not responsive BP marginal Family at the bedside Vital Signs Temperature 98.9 F 09/05/19 06:00 Pulse Rate 82 09/05/19 06:00 Respiratory Rate 20 09/05/19 06:00 Blood Pressure 87/47 L 09/05/19 06:00 O2 Sat by Pulse Oximetry (%) 96 09/05/19 11:50 Intake & Output 09/02/19 09/03/19 09/04/19 09/05/19 23:59 23:59 23:59 23:59 Intake Total 420 Balance 420 Weight 58.967 kg 65.952 kg 65.952 kg not responsive neck supple RRR Dec BS soft NT/ND no LE edema left arm AVF CBC, BMP 09/04/19 06:20 09/04/19 06:20 Current Medications Acetaminophen (Ofirmev Injection -) 1,000 mg IVPB Q6H PRN PRN Reason: PAIN 4-6 Last Admin: 09/05/19 11:51 Dose: 1,000 mg Albuterol Sulfate (Ventolin 0.083% Nebulizer Soln -) 1 amp NEB Q4H PRN PRN Reason: SHORT OF BREATH/WHEEZING Cinacalcet (Sensipar -) 30 mg PO ASDIR [facility] Dextrose (D5w -) 1,000 mls @ 43.478 mls/hr IV ASDIR [facility] Last Admin: 09/04/19 15:42 Dose: 43.478 mls/hr Insulin Aspart (Novolog Vial Sliding Scale -) 1 vial SQ TIDAC [facility]; Protocol Last Admin: 09/05/19 11:51 Dose: Not Given Levothyroxine Sodium (Synthroid -) 150 mcg PO DAILY@0700 [facility] Last Admin: 09/05/19 06:49 Dose: Not Given Morphine Sulfate (Morphine Sulfate) 1 mg IVPUSH Q4H PRN PRN Reason: Distress Pantoprazole Sodium (Protonix Iv) 40 mg IVPUSH BID [facility] Last Admin: 09/05/19 11:51 Dose: 40 mg 84 year old woman with history of ESRD on HD, CHF, Afib, CAD, Hypertension, GIB , Chronic femur fracture, hypertension who [place] with AMS and hypotensoin. 1. ESRD on HD 2. Altered Mental status 3. Respiratory failure 4. Fluid overload Continue comfort measures at this time can change from BIPAP to NRB mask O2 PRN Morphine ordered d/c Tele monitoring. Thank you Kenny Yeboah DO
[2019-09-05] MEDS: MORPHINE SULFATE 2 MG/ML VIAL IVPUSH PRN (15:37)
--- NOTE | 2019-09-05 17:42 | PN.GI ---
GI Progress Note Subjective: No overt bleeding Patient on comfort care now - Objective Vital Signs: Vital Signs Temperature 97.4 F L 09/05/19 14:45 Pulse Rate 90 09/05/19 14:45 Respiratory Rate 22 H 09/05/19 14:45 Blood Pressure 80/37 L 09/05/19 14:45 O2 Sat by Pulse Oximetry (%) 96 09/05/19 11:50 Constitutional: Calm Cardiovascular: Yes: Regular Rate and Rhythm, Murmur Respiratory: Yes: Diminished (poor insp effort) Gastrointestinal Inspection: No: Distention ...Auscultate: Yes: Normoactive Bowel Sounds ...Palpate: Yes: Soft. No: Tenderness (No grimacing upon palpation) ...Percussion: No: Tympanitic Edema: No (No LE edema) Neurological: Yes: Other (Somnolent) Labs: CBC, BMP 09/04/19 06:20 09/04/19 06:20 INR, PTT INR 1.69 (0.83-1.09) H 09/03/19 21:46 Problem List - Problems (1) Lower GI bleed Assessment/Plan: No overt bleeding Will sign off Code(s): K92.2 - GASTROINTESTINAL HEMORRHAGE, UNSPECIFIED
[2019-09-05] MEDS ORDERED: GLUCAGON 1 MG KIT IVPUSH ONE (23:12)
[2019-09-05] MEDS ORDERED: SODIUM CHLORIDE 0.9% 500 ML INFUS.BAG IV ONE (23:24)
[2019-09-05] MEDS ORDERED: DEXTROSE 5%-WATER - 1,000 ML IV SCH (23:27)
[2019-09-05] MEDS ORDERED: SODIUM CHLORIDE 1,000 ML IV SCH (23:30)
--- NOTE | 2019-09-05 23:30 | HOSP ---
Subjective - Review of Symptoms Events since last encounter: This is a 84 y/o woman from [facility] with a PMHx of ESRD (,,), CHF, Afib , CAD, HTN, GIB, Chronic L-Leg Fx. Who [facility] the ED [facility] for lethargy, hypotension, hypoxia. Patient is a DNR/DNI. Patient enrolled in hospice care. Patient noted with hypoglycemia (53) and hypotension 70/41, as per family ( sister) no pressors, they are ok with IV fluids. Will give 300 ml bolus x1, and glucagon 1mg Iv push , will increase rate of IVF D5w 60 ml/hr. Continue with comfort measures. Physical Examination Vital Signs: Vital Signs Temperature 97.4 F L 09/05/19 14:45 Pulse Rate 90 09/05/19 14:45 Respiratory Rate 22 H 09/05/19 14:45 Blood Pressure 80/37 L 09/05/19 14:45 O2 Sat by Pulse Oximetry (%) 96 09/05/19 20:30 Labs: CBC, BMP 09/04/19 06:20 09/04/19 06:20
[2019-09-06] MEDS ORDERED: DEXTROSE 5%-0.45% SALINE 1,000 ML IV SCH (02:15)
[2019-09-06] MEDS ORDERED: DEXTROSE 5%-0.45% SALINE 1,000 ML IV ONE (02:16)
[2019-09-06] MEDS ORDERED: [UNRECOGNIZED DRUG - OTHER] IV ONE (03:28)
[2019-09-06] MEDS ORDERED: DEXTROSE IV ONE (03:28)
[2019-09-06] MEDS: MORPHINE SULFATE 2 MG/ML VIAL IVPUSH PRN ×4 (04:24→21:47)
[2019-09-06] MEDS: LEVOTHYROXINE NA 150 MCG TABLET PO SCH (06:29)
[2019-09-06] MEDS: INSULIN SLIDING SCALE (NOVOLOG) 1 VIAL SQ SCH (06:37)
[2019-09-06] MEDS: PANTOPRAZOLE SODIUM 40 MG VIAL IVPUSH SCH ×2 (09:12→21:48)
--- NOTE | 2019-09-06 11:52 | PN ---
Progress Note (short form) - Note Progress Note: Drowsy but arousable comfortable. Events / all f/u noted Vital Signs Temp 98.0 F 09/06/19 02:00 Pulse 74 09/06/19 02:20 Resp 20 09/06/19 02:00 BP 64/37 L 09/06/19 02:20 Pulse Ox 96 09/05/19 21:00 Intake & Output 09/05/19 09/05/19 09/06/19 11:59 23:59 11:59 Intake Total 852 662 5069 Balance 885 427 0510 Weight 145 lb 6.4 oz Intake: IV 075 641 2724 D5-1/2Ns (500 ml Bag) - 300 300 ml @ 300 mls/hr IV ONCE ONE Rx#:[id number] D5-1/2Ns - 1,000 ml @ 100 500 mls/hr IV ASDIR [facility] Rx#: [id number] D5w - 1,000 ml @ 43.478 420 457 mls/hr IV ASDIR [facility] Rx#: [id number] D5w - 1,000 ml @ 60 mls/ 540 hr IV ASDIR [facility] Rx#: [id number] Normal Saline - 1,000 ml 0 @ 75 mls/hr IV ASDIR [facility] Rx#:[id number] IVPB 300 Other: Voiding Method Incontinent Incontinent Bowel Movement No No # Bowel Movements 1 Weight Measurement Method Patient Lift Scale Active Medications Acetaminophen (Ofirmev Injection -) 1,000 mg IVPB Q6H PRN PRN Reason: PAIN 4-6 Last Admin: 09/05/19 11:51 Dose: 1,000 mg Albuterol Sulfate (Ventolin 0.083% Nebulizer Soln -) 1 amp NEB Q4H PRN PRN Reason: SHORT OF BREATH/WHEEZING Cinacalcet (Sensipar -) 30 mg PO ASDIR [facility] Dextrose/Sodium Chloride (D5-1/2ns -) 1,000 mls @ 100 mls/hr IV ASDIR [facility] Last Admin: 09/06/19 02:40 Dose: 100 mls/hr Insulin Aspart (Novolog Vial Sliding Scale -) 1 vial SQ TIDAC [facility]; Protocol Last Admin: 09/06/19 06:37 Dose: Not Given Levothyroxine Sodium (Synthroid -) 150 mcg PO DAILY@0700 [facility] Last Admin: 09/06/19 06:29 Dose: Not Given Morphine Sulfate (Morphine Sulfate) 1 mg IVPUSH Q4H PRN PRN Reason: Distress Last Admin: 09/06/19 04:24 Dose: 1 mg Pantoprazole Sodium (Protonix Iv) 40 mg IVPUSH BID [facility] Last Admin: 09/06/19 09:12 Dose: 40 mg CBC, BMP 09/04/19 06:20 09/04/19 06:20 Physical Exam. Drowsy / confused / opens eyes S1 S2 irregular Lungs decreased Abd- soft, no edema Rt leg deformed at thigh and shortened A/P Altered mental status Elevated troponins Hypotensive GI bleed ESRD on HD Sepsis Hypercapneic respiratory failure -Comfort Care -- Dialysis Held- Will not be able to tolerate-- Hypotensive -Prognosis poor -- pt is DNI/DNI - Palliative care --Will follow Problem List - Problems (1) Acute metabolic encephalopathy Code(s): G93.41 - METABOLIC ENCEPHALOPATHY (2) Acute respiratory failure with hypoxia and hypercarbia Code(s): J96.01 - ACUTE RESPIRATORY FAILURE WITH HYPOXIA; J96.02 - ACUTE RESPIRATORY FAILURE WITH HYPERCAPNIA (3) Elevated troponin Code(s): R79.89 - OTHER SPECIFIED ABNORMAL FINDINGS OF BLOOD CHEMISTRY (4) Anemia Code(s): D64.9 - ANEMIA, UNSPECIFIED (5) Diabetes Code(s): E11.9 - TYPE 2 DIABETES MELLITUS WITHOUT COMPLICATIONS (6) ESRD (end stage renal disease) Code(s): N18.6 - END STAGE RENAL DISEASE (7) Femur fracture, right Code(s): S72.91XA - UNSP FRACTURE OF RIGHT FEMUR, INIT FOR CLOS FX
--- NOTE | 2019-09-06 11:52 | PN ---
Progress Note (short form) - Note Progress Note: PULMONARY ON MORPHINE Constitutional: Yes: Lethargic, Tachypneic Eyes: Yes: Conjunctiva Clear, EOM Intact HENT: Yes: Atraumatic, Normocephalic Neck: Yes: Supple, Trachea Midline Cardiovascular: Yes: Regular Rate and Rhythm Respiratory: Yes: Accessory Muscle Use, Diminished, On NIPPV support, Rhonchi, Tachypnea. No: Cough, Stridor, Wheezes ...Inspection: Yes: WNL ...Clubbing: No Gastrointestinal: Yes: Normal Bowel Sounds, Soft, Abdomen, Obese Musculoskeletal: Yes: Other (leg deformity ) Extremities: Yes: Deformity Edema: Yes Peripheral Pulses WNL: Yes Integumentary: Yes: WNL Neurological: Yes: Confusion, Lethargy Labs: NOTED Problem List - Problems (1) Pleural effusion Code(s): J90 - PLEURAL EFFUSION, NOT ELSEWHERE CLASSIFIED (2) Pulmonary vascular congestion Code(s): R09.89 - OTH SYMPTOMS AND SIGNS INVOLVING THE CIRC AND RESP SYSTEMS (3) Acute respiratory failure with hypoxia and hypercarbia Code(s): J96.01 - ACUTE RESPIRATORY FAILURE WITH HYPOXIA; J96.02 - ACUTE RESPIRATORY FAILURE WITH HYPERCAPNIA (4) Anemia Code(s): D64.9 - ANEMIA, UNSPECIFIED (5) Aortic stenosis Code(s): I35.0 - NONRHEUMATIC AORTIC (VALVE) STENOSIS Qualifiers: Cardiac valve disease etiology: nonrheumatic Qualified Code(s): I35.0 - Nonrheumatic aortic (valve) stenosis (6) Atrial fibrillation Code(s): I48.91 - UNSPECIFIED ATRIAL FIBRILLATION Qualifiers: (7) CAD (coronary artery disease) Code(s): I25.10 - ATHSCL HEART DISEASE OF [place] CORONARY ARTERY W/O ANG PCTRS (8) Diabetes Code(s): E11.9 - TYPE 2 DIABETES MELLITUS WITHOUT COMPLICATIONS (9) ESRD (end stage renal disease) on dialysis Code(s): N18.6 - END STAGE RENAL DISEASE; Z99.2 - DEPENDENCE ON RENAL DIALYSIS (10) H/O heart artery stent Code(s): Z95.5 - PRESENCE OF CORONARY ANGIOPLASTY IMPLANT AND GRAFT (11) Hyperlipidemia Code(s): E78.5 - HYPERLIPIDEMIA, UNSPECIFIED Qualifiers: Hyperlipidemia type: pure hypercholesterolemia Qualified Code(s): E78.00 - Pure hypercholesterolemia, unspecified; E78.0 - Pure hypercholesterolemia (12) 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 (13) Hypertension Code(s): I10 - ESSENTIAL (PRIMARY) HYPERTENSION Qualifiers: Hypertension type: essential hypertension Qualified Code(s): I10 - Essential (primary) hypertension (14) Hypotension Code(s): I95.9 - HYPOTENSION, UNSPECIFIED (15) Hypothyroid Code(s): E03.9 - HYPOTHYROIDISM, UNSPECIFIED Qualifiers: (16) Renal dialysis status Code(s): Z99.2 - DEPENDENCE ON RENAL DIALYSIS (17) Right ventricular dysfunction Code(s): I51.9 - HEART DISEASE, UNSPECIFIED (18) S/P hip replacement Code(s): Z96.649 - PRESENCE OF UNSPECIFIED ARTIFICIAL HIP JOINT (19) Systolic CHF Code(s): I50.20 - UNSPECIFIED SYSTOLIC (CONGESTIVE) HEART FAILURE (20) Venous (peripheral) insufficiency Code(s): I87.2 - VENOUS INSUFFICIENCY (CHRONIC) (PERIPHERAL) Patient is DNR / DNI: Aspiration precautions ABX per ID HD per Renal BD TX PRN No indication for systemic steroids Palliative Care evaluation to further determine GOC Fatemeh CAN MD
[2019-09-06 15:50] VITALS: BP 69/37
[2019-09-06] MEDS: ACETAMINOPHEN 1000 MG/100 ML VIAL (NON FORMULARY) IVPB PRN (16:26)
[2019-09-06 20:14] VITALS: PULSE 57; TEMP 97.4
--- NOTE | 2019-09-06 22:36 | HOSP ---
Subjective - Review of Symptoms Events since last encounter: Patient was comfort/ hospice care. called to see patient for unresponsiveness. On exam the patient did not respond to verbal or physical stimuli. Absent heart and breath sounds. Absent peripheral pulses. Pupils are fixed and dilated. Patient pronounced at 10:23 PM. PMD and family (sister) informed by nursing staff. Physical Examination Vital Signs: Labs:
--- NOTE | 2019-09-07 13:30 | DS ---
Physical Examination Vital Signs: Vital Signs Temperature 97.4 F L 09/06/19 20:12 Pulse Rate 57 L 09/06/19 20:12 Respiratory Rate 20 09/06/19 20:12 Blood Pressure 69/37 L 09/06/19 14:00 O2 Sat by Pulse Oximetry (%) 100 09/06/19 19:55 Findings/Remarks: See progress note----09/06 Labs: CBC, BMP 09/04/19 06:20 09/04/19 06:20 Discharge Summary Problems reviewed: Yes Reason For Visit: ELEVATED TROPONIN LEVEL,ALTEREDMENTAL STATUS, Hospital Course: Comfort care patient Condition: - Instructions Disposition: - Home Medications Comprehensive Discharge Medication List: Ambulatory Orders Cinacalcet HCl [Sensipar] 30 mg PO ASDIR 07/22/17 Magnesium Oxide 400 mg PO DAILY 07/22/17 Aspirin Coated [Ecotrin -] 81 mg PO DAILY tablet.ec 08/01/17 Folic Acid/Vit B Complex and C [Dialyvite 800 Tablet] 0.8 mg PO DAILY 01/21/19 Insulin (Novolog 70/30) [Novolog Mix 70/30 Vial -] 8 ml SQ ASDIR 01/21/19 Insulin Sliding Scale [Novolog Vial Sliding Scale -] 6 units SQ AM 01/21/19 Levothyroxine [Synthroid -] 150 mcg PO DAILY@0700 #30 tablet 02/15/19 Metoprolol Tartrate [Lopressor -] 25 mg PO BID #60 tablet 02/15/19 Albuterol 0.083% Nebulizer [place] [Ventolin 0.083% Nebulizer Soln -] 1 amp NEB Q4H PRN amp 05/16/19 Docusate Sodium [Colace -] 300 mg PO HS capsule 05/16/19 Heparin - 5,000 unit SQ TID vial 05/16/19 Insulin Sliding Scale [Novolog Vial Sliding Scale -] 1 vial SQ ACHS units 05/16 Levothyroxine [Synthroid -] 150 mcg PO DAILY@0700 tablet 05/16/19 Levothyroxine [Synthroid -] 150 mcg PO DAILY@0700 tablet 05/16/19 Metoprolol Tartrate [Lopressor -] 25 mg PO BID tablet 05/16/19 Oxycodone HCl [Roxicodone] 5 mg PO QID PRN #90 tablet MDD 4 05/16/19 Silver Sulfadiazine 1% Top Cr [Silvadene -] 1 applic TP DAILY jar 05/16/19 Sodium Hypochlorite [Dakin's Solution 0.25% (Half-Strength) -] 1 applic TP DAILY ml 05/16/19
== END 2019-09-07 01:03 | disposition expired | DRG 871 ==
LOC: JER 21:25 → JERBED 09-04 01:19 → J4W 09-04 20:44
PROVIDERS: ADMIT Internal Medicine; ATTEND Internal Medicine
DX: A41.9 Sepsis, unspecified organism (principal); J96.01 Acute respiratory failure with hypoxia; G93.41 Metabolic encephalopathy; N18.6 End stage renal disease; J96.02 Acute respiratory failure with hypercapnia; I13.2 Hypertensive heart and chronic kidney disease with heart failure and with stage 5 chronic kidney disease, or end stage renal disease; K92.2 Gastrointestinal hemorrhage, unspecified; I95.9 Hypotension, unspecified; D64.9 Anemia, unspecified; I48.0 Paroxysmal atrial fibrillation; I25.10 Atherosclerotic heart disease of native coronary artery without angina pectoris; E11.9 Type 2 diabetes mellitus without complications; Z99.2 Dependence on renal dialysis; I48.91 Unspecified atrial fibrillation; E87.70 Fluid overload, unspecified; I35.0 Nonrheumatic aortic (valve) stenosis; E03.9 Hypothyroidism, unspecified; E78.5 Hyperlipidemia, unspecified; R41.82 Altered mental status, unspecified
CPT/HCPCS: 36415; 36600; 70450-TC; 71045-TC-FY; 80048; 80053; 82272; 82803; 82962; 83605; 83735; 83880; 84100; 84443; 84484; 85025; 85610; 85730; 87040; 93005; 93010; 94660; 99285-25; J0131